=== PATIENT | male | born 1935 | race Caucasian/White ===

== ENCOUNTER → 2016-10-18 | Outpatient (CLI) | payer OTHER ==
[~2016-10-18] MED LIST: ALENDRONATE 70 MG PO; AMLO-110 PO; ASPEC81 PO; ATEN50TA8 PO; BENA1TAB53 PO; CALCTAB5 PO; CHOL100010 PO; CLS1 PO; CRD4 PO; FINA5TAB PO; LORA0.5T12 PO; LOVA20TA4 PO; MULT-190 PO; POTA-335 PO; PRED-301 PO; PRLSR20 PO
--- NOTE | 2016-10-18 15:27 | DIAGNOSTIC IMAGING REPORT ---
BILATERAL LOWER EXTREMITY VENOUS DOPPLER HISTORY: B/L LEG SWELLING,TENDERNESS,R/O DVT COMPARISON STUDY: None. FINDINGS: There is normal compressibility, flow, and augmentation within the bilateral lower extremity deep venous systems. IMPRESSION: No DVT within the right or left lower extremity. Electronically signed by: Erik Solis M.D. 10/18/2016 3:25 PM Dictated Date/Time: 10/18/2016 3:24 PM
== END | disposition home or self-care (01) ==
LOC: C.ULTR 14:43
PROVIDERS: ATTEND Internal Medicine
DX: R60.0 Localized edema (principal); M79.669 Pain in unspecified lower leg; R06.09 Other forms of dyspnea

== ENCOUNTER → 2017-01-11 | Outpatient (CLI) | payer OTHER ==
[~2017-01-11] MED LIST changes: +BENA1TAB19 PO; -BENA1TAB53 PO; +GADAVIST IV PRN
--- NOTE | 2017-01-11 16:09 | DIAGNOSTIC IMAGING REPORT ---
CORRECTED REPORT FOR CLINICAL HISTORY BRAIN COMBO CLINICAL HISTORY: Vision loss and optic nerve swelling COMPARISON STUDY: No previous studies for comparison. TECHNIQUE: Utilizing a 1.5 Ashlyn magnet and dedicated coil, multiplanar, multiecho imaging of the brain was performed pre and postcontrast administration. IV administration of 8.0 mL of Gadavist contrast was uneventful. FINDINGS: Diffusion images are negative for an acute ischemic event. Generalized chronic small vessel change throughout both cerebral hemispheres. Slight compensatory prominence of the ventricular system. No significant postcontrast enhancement. IMPRESSION: Normal study. The above report was generated using voice recognition software. It may contain grammatical, syntax or spelling errors. Electronically signed by: Benja Fortune M.D. 01/11/2017 4:08 PM Dictated Date/Time: 01/11/2017 4:05 PM [facility]
--- NOTE | 2017-01-11 16:12 | DIAGNOSTIC IMAGING REPORT ---
CORRECTED REPORT FOR CLINICAL HISTORY ORBITAL MRI WITHOUT AND WITH CONTRAST CLINICAL HISTORY: Hodgkin's lymphoma, prostate carcinoma. Right eye swelling. Optic nerve swelling. COMPARISON STUDY: No previous studies for comparison. FINDINGS: Imaging was performed in the sagittal axial and coronal planes. Imaging before and after the administration of 10 cc of intravenous Gadavist was performed. No ocular masses are visualized. No retroconal masses are visualized. The extraocular muscles appear symmetric. The optic nerves appear symmetric. There is no evidence of pathologic postcontrast enhancement. The optic chiasm appears normal. The infundibulum is within the midline. There are foci of increased T2 signal within the white matter likely a small vessel basis. There is mild ventricular dilatation, likely secondary to volume loss. IMPRESSION: No orbital abnormalities identified. No evidence of metastatic disease. No optic nerve abnormalities identified. Electronically signed by: Tra Krishnan M.D. 01/11/2017 4:11 PM Dictated Date/Time: 01/11/2017 4:06 PM [facility]
== END | disposition home or self-care (01) ==
LOC: C.MRI 14:17
PROVIDERS: ATTEND Ophthalmology
DX: H47.10 Unspecified papilledema (principal)

== ENCOUNTER 2017-09-10 13:45 | Emergency (ER) | payer OTHER ==
[~2017-09-10] VITALS: Ht 175.3 cm; Wt 108.7 kg
[~2017-09-10 13:45] MED LIST changes: -BENA1TAB19 PO; +BENA1TAB53 PO; -GADAVIST IV PRN
[2017-09-10 13:48] VITALS: TEMP 36.8; Ht 175.3 cm; Wt 108.7 kg
[2017-09-10] MEDS ORDERED: SODIUM CHLORIDE 0.9% 1000ML 1,000 ML IV STA (14:01)
--- NOTE | 2017-09-10 14:16 | EMERGENCY ROOM VISIT NOTE ---
History Report prepared by Ike: Luigi Brennan Under the Supervision of: Dr. Cole Barajas M.D. First contact with patient: 13:56 Chief Complaint: OTHER COMPLAINT Stated Complaint: CHOKED ON FOOD,STILL FEELS LODGED History of Present Illness The patient is a 82 year old male who presents to the Emergency Room due to a recent choking episode. Patient states that he "can't swallow" and has a sensation in his throat after eating a salad and a piece of roast beef. Patient states that it was not a big piece of roast piece. He adds that there was nothing sharp in the salad. Patient states that he felt like the food "got stuck ". He states that he could not breath because his "throat was closed up". Patient states that he has a history of similar symptoms but typically it is relieved with drinking fluids. He states that he drank iced tea but it did not relieve the symptoms. He adds that the iced tea went down okay. Patient states that he is feeling better right now. Pertinent past medical history includes a diagnosis of Hodgkin's Lymphoma 6 years ago. Patient states that his oncologist was Dr. Soto at [facility]. He states that Dr. Soto retired and now sees "Laina". He adds that he has a check-up appointment with "Laina" next month. He adds that he has a history of endoscopies. Patient adds that he currently takes a water pill at night to help him urinate. He denies currently taking blood thinners. Patient denies fevers, chills, cough, congestion, and chest pain. Source of History: patient Onset: Recent Position: throat Modifying Factors (Relieving): other (None) Associated Symptoms: No fevers, No chills, No cough, No chest pain Note: Patient denies congestion. Review of Systems See HPI for pertinent positives and negatives. A total of ten systems were reviewed and were otherwise negative. Past Medical & Surgical Medical Problems: (1) Asthma (2) Benign hypertension (3) Bronchitis (4) Deep venous thrombosis (5) Extraction of cataract (6) Gastroesophageal reflux disease (7) Hodgkin's lymphoma (8) Replacement of total knee joint (9) Spinal stenosis of lumbar region (10) Thoracotomy Family History Omitted secondary to age. Social History Smoking Status: Never Smoker Alcohol Use: none Marital Status: Housing Status: lives with significant other Occupation Status: retired Current/Historical Medications Scheduled Amlodipine (Norvasc), 5 MG PO DAILY Aspirin Enteric Coated (Ecotrin Or Generic *), 81 MG PO DAILY Atenolol (Tenormin), 50 MG PO DAILY Benazepril (Lotensin), 40 MG PO DAILY Calcium (Caltrate), 600 MG PO DAILY Cholecalciferol (Vitamin D), 1,000 INTER.UNIT PO DAILY Colestipol Hcl (Colestid *), 1 GM PO DAILY Doxazosin Mesylate (Cardura *), 4 MG PO HS Finasteride (Proscar), 5 MG PO DAILY Lovastatin (Mevacor), 20 MG PO HS Ocuvite Preservision (Ocuvite Preservision), 2 TAB PO DAILY Omeprazole (Prilosec), 20 MG PO DAILY Potassium Chloride (Micro-K Ext Rel), 20 MEQ PO DAILY Prednisone (Prednisone), 10 MG PO DAILY [alendronate 70 mg], 70 MG PO DAILY Scheduled PRN Lorazepam (Lorazepam), 0.5-1 MG PO Q4H PRN Allergies Coded Allergies: Penicillins (Verified Allergy, Intermediate, RASH, ITCHY, 09/10/17) Opioid Analgesics (Verified Adverse Reaction, Intermediate, hallucinations , can take codeine, 09/10/17) Oxycodone (Verified Adverse Reaction, Intermediate, hallucinations, ) Physical Exam Vital Signs Date Time Temp Pulse Resp B/P (MAP) Pulse Ox O2 Delivery O2 Flow Rate FiO2 09/10/17 16:53 63 18 140/76 92 09/10/17 14:36 66 09/10/17 13:48 36.8 67 18 174/81 92 Room Air Physical Exam GENERAL: Awake, alert, uncomfortable-appearing, in no distress HENT: Normocephalic, atraumatic. Oropharynx unremarkable. Dry mucous membranes. EYES: Normal conjunctiva. Sclera non-icteric. NECK: Supple. No nuchal rigidity. FROM. No JVD. RESPIRATORY: Clear to auscultation. CARDIAC: Regular rate, normal rhythm. Extremities warm and well perfused. Pulses equal. ABDOMEN: Soft, non-distended. No tenderness to palpation. No rebound or guarding. No masses. RECTAL: Deferred. MUSCULOSKELETAL: Chest examination reveals no tenderness. The back is symmetrical on inspection without obvious abnormality. There is no CVA tenderness to palpation. No joint edema. LOWER EXTREMITIES: Calves are equal size bilaterally and non-tender. No edema. No discoloration. NEURO: Normal sensorium. No sensory or motor deficits noted. SKIN: No rash or jaundice noted. Medical Decision & Procedures ER Provider Diagnostic Interpretation: Radiology results as stated below per my review and radiologist interpretation: SOFT TISSUE NECK WITH HISTORY: 82 years-old Male dysphagia, r/o retained food bolus acute dysphasia COMPARISON: MRI of the orbits 01/11/2017 TECHNIQUE: Multiple axial CT images of the soft tissues of the neck were obtained following the intravenous administration of 115 mL Optiray 320 IV contrast. A dose lowering technique was used consistent with the principals of ALEE. FINDINGS: The adenoid, lingual and palatine tonsils appear unremarkable. The airway appears patent. No mucosal soft tissue mass identified within the pharynx or glottis. The epiglottis appears unremarkable. There is mild asymmetric thickening of the left aryepiglottic fold, image 199 series 3 without focal lesion identified resulting in asymmetric decreased size of the left piriform sinus compared to the right. The true and false vocal cords appear unremarkable. Vallecula are within normal limits. The periglottic fat appears preserved. No parapharyngeal abscess or drainable fluid collections. No prevertebral soft tissue swelling. The bilateral parotid and submandibular glands are within normal limits. Mildly heterogeneous thyroid without dominant nodule identified. No pathologic adenopathy of the neck is seen. Atherosclerosis of the thoracic aorta and proximal great vessels. There is medial course of the left common carotid artery with atherosclerosis of the bilateral carotid bulbs. Lung apices appear generally clear. Prior median sternotomy. Multilevel discogenic degenerative changes, uncovertebral spurring and facet arthrosis of the cervical spine with severe multilevel intervertebral disc space narrowing and reversal the normal cervical lordosis. Mastoid air cells and middle ear cavities are clear. Mild mucosal thickening of the posterior ethmoid air cells.No acute intracranial abnormality. There appears be mild cerebral atrophy. IMPRESSION: 1. Asymmetric soft tissue thickening without discrete mass identified involving the left aryepiglottic fold, likely secondary to medial retropharyngeal course of the left common carotid artery. This finding could be further evaluated with direct visualization to exclude underlying mucosal mass lesion. 2. Patent airway without drainable fluid collection or pathologic adenopathy. 3. Mild paranasal sinus disease. 4. Severe multilevel intervertebral disc space narrowing of the cervical spine. The above report was generated using voice recognition software. It may contain grammatical, syntax or spelling errors. Electronically signed by: Giovanni Cotton M.D. 09/10/2017 3:08 PM Laboratory Results 09/10/17 14:18 Red Blood Count 5.13, Mean Corpuscular Volume 89.5, Mean Corpuscular Hemoglobin 30.0, Mean Corpuscular Hemoglobin Concent 33.6, Mean Platelet Volume 11.0, Neutrophils (%) (Auto) 81.1, Lymphocytes (%) (Auto) 9.3, Monocytes (%) (Auto) 7.8, Eosinophils (%) (Auto) 1.3, Basophils (%) (Auto) 0.1, Neutrophils # (Auto) 6.69, Lymphocytes # (Auto) 0.77, Monocytes # (Auto) 0.64, Eosinophils # (Auto) 0.11, Basophils # (Auto) 0.01 09/10/17 14:18 Test 09/10/17 14:18 09/10/17 14:24 White Blood Count 8.25 K/uL (4.8-10.8) Red Blood Count 5.13 M/uL (4.7-6.1) Hemoglobin 15.4 g/dL (14.0-18.0) Hematocrit 45.9 % (42-52) Mean Corpuscular Volume 89.5 fL (80-100) Mean Corpuscular Hemoglobin 30.0 pg (25-34) Mean Corpuscular Hemoglobin Concent 33.6 g/dl (32-36) Platelet Count 137 K/uL (130-400) Mean Platelet Volume 11.0 fL (7.4-10.4) Neutrophils (%) (Auto) 81.1 % Lymphocytes (%) (Auto) 9.3 % Monocytes (%) (Auto) 7.8 % Eosinophils (%) (Auto) 1.3 % Basophils (%) (Auto) 0.1 % Neutrophils # (Auto) 6.69 K/uL (1.4-6.5) Lymphocytes # (Auto) 0.77 K/uL (1.2-3.4) Monocytes # (Auto) 0.64 K/uL (0.11-0.59) Eosinophils # (Auto) 0.11 K/uL (0-0.5) Basophils # (Auto) 0.01 K/uL (0-0.2) RDW Standard Deviation 44.1 fL (36.4-46.3) RDW Coefficient of Variation 13.5 % (11.5-14.5) Immature Granulocyte % (Auto) 0.4 % Immature Granulocyte # (Auto) 0.03 K/uL (0.00-0.02) Est Creatinine Clear Calc Drug Dose 67.1 ml/min Estimated GFR () 76.8 Estimated GFR (Non- 66.3 BUN/Creatinine Ratio 15.3 (10-20) Calcium Level 8.7 mg/dl (8.5-10.1) Bedside Hemoglobin 15.3 g/dl (14.0-18.0) Bedside Hematocrit 45 % (42-52) Bedside Sodium 142 mEq/L (135-144) Bedside Potassium 3.3 mEq/L (3.3-5.0) Bedside Chloride 101 mEq/L (101-112) Bedside Total CO2 29 mEq/l (24-31) Anion Gap 16.0 mmol/L (16-25) Bedside Blood Urea Nitrogen 16 mg/dl (7-18) Bedside Creatinine 1.0 mg/dl (0.6-1.3) Bedside Glucose (other) 100 mg/dl (70-99) Bedside Ionized Calcium (Temo) 1.14 mmol/l (1.12-1.32) Laboratory results reviewed by me Medications Administered Medications (Trade) Dose Ordered Sig/Comfort Route Start Time Stop Time Status Last Admin Dose Admin Sodium Chloride 1,000 ml @ 999 mls/hr Q1H1M STAT IV 09/10/17 14:01 09/10/17 15:01 DC 09/10/17 14:29 999 MLS/HR ED Course 1354: The patient was evaluated in room A9. A complete history and physical exam was performed. 1555: I reassessed the patient who is resting comfortably. 1610: I reevaluated the patient. Discussed results and discharge instructions. He verbalized understanding and agreement. The patient is ready for discharge. Medical Decision I reviewed the patient's past medical history, medications, and the nursing notes as described above. The patient's presentation and history were concerning for a lodged food bolus, achalasia, reflux, esophagitis, and aspiration. The patient is an 82 y/o gentleman with a pmhx of remote lymphoma who presents to the emergency department with episode of dysphagia feeling as though food was stuck in his throat per HPI. On arrival the patient is in NAD, AFVSS. On exam the patient's oropharynx is without edema or injection. No stridor. No trismus. CT soft tissue neck demonstrates "asymmetric soft tissue thickening without discrete mass identified involving the left aryepiglottic fold" that is likely due to underlying vasculature. No abnormal LN to suggest malignancy. No lodged food bolus. Labs otherwise unremarkable. Patient reassess and feeling improved with resolution of symptoms. Thus, possibly transient lodged food bolus as well as reflux. Patient will f/u with his GI specialist. Findings and plan for follow-up reviewed with patient. Patient agreeable and d/c'd per discharge instructions. Medication Reconcilliation Current Medication List: was personally reviewed by me Blood Pressure Screening Patient's blood pressure: Elevated blood pressure Blood pressure disposition: Elevated BP felt to be situational Consults Time Called: 1535 Consulting Physician: Dr. Cotton - Radiologist Returned Call: [phone] I discussed the patient's Soft Tissue Neck CT scan with Dr. Cotton. He states that the findings are not consistent with food bolus. It is more likely vascularity as he suggest in the report. There is also no pathologic lymph nodes to suggest malignancy Impression Primary Impression: Dysphagia Additional Impression: GERD (gastroesophageal reflux disease) Scribe Attestation The scribe's documentation has been prepared under my direction and personally reviewed by me in its entirety. I confirm that the note above accurately reflects all work, treatment, procedures, and medical decision making performed by me. Departure Information Dispostion Home / Self-Care Referrals Mirza Mcgee III, M.D. (PCP) Arnoldo Oseguera M.D. Forms HOME CARE DOCUMENTATION FORM, IMPORTANT VISIT INFORMATION, WORK / SCHOOL INSTRUCTIONS Patient Instructions Dysphagia, ED GERD, My [facility] Additional Instructions Please follow up with your primary care physician as well as your pipe changer, Dr. Oseguera, for re-evaluation and to possible arrange for an endoscopy. Your symptoms may have been related to a transiently lodged food particle that then resolved and possibly worsened by recent reflux flare. Otherwise, your exam, lab results, and CT scan did not show signs of an emergent condition at this time. Continue your omeprazole and Tums as needed. Additionally add Pepcid as needed if you feel your symptoms persist. Drink plenty of fluids to ensure hydration. Return to the emergency department for worsening symptoms as described in the accompanying instructions. Problem Qualifiers
[2017-09-10] MEDS ORDERED: OPTIRAY 320 IV PRN (14:30)
[2017-09-10 14:38] LABS: ISTAT IONIZED CALCIUM 1.14 mmol/l (1.12-1.32); ISTAT POTASSIUM 3.3 mEq/L (3.3-5.0)
[2017-09-10 14:40] LABS: BASO % 0.1 %; BASO ABS # 0.01 K/uL (0-0.2); EOS % 1.3 %; EOS ABS # 0.11 K/uL (0-0.5); HEMATOCRIT 45.9 % (42-52); HEMOGLOBIN 15.4 g/dL (14.0-18.0); IG# 0.03 K/uL (0.00-0.02); LYMPH % 9.3 %; LYMPH ABS # 0.77 K/uL (1.2-3.4); MEAN CELL VOLUME 89.5 fL (80-100); MEAN CORPUSCULAR HGB CONC 33.6 g/dl (32-36); MONO % 7.8 %; MONO ABS # 0.64 K/uL (0.11-0.59); NEUT % 81.1 %; NEUT ABS # 6.69 K/uL (1.4-6.5); PLATELET COUNT 137 K/uL (130-400); RED CELL DISTRIBUTION WIDTH CV 13.5 % (11.5-14.5); RED CELL DISTRIBUTION WIDTH SD 44.1 fL (36.4-46.3); WHITE BLOOD COUNT 8.25 K/uL (4.8-10.8)
[2017-09-10 14:57] LABS: CALCIUM 8.7 mg/dl (8.5-10.1); CREATININE 1.05 mg/dl (0.60-1.40); POTASSIUM 3.3 mmol/L (3.5-5.1)
--- NOTE | 2017-09-10 15:10 | DIAGNOSTIC IMAGING REPORT ---
SOFT TISSUE NECK WITH HISTORY: 82 years-old Male dysphagia, r/o retained food bolus acute dysphasia COMPARISON: MRI of the orbits 01/11/2017 TECHNIQUE: Multiple axial CT images of the soft tissues of the neck were obtained following the intravenous administration of 115 mL Optiray 320 IV contrast. A dose lowering technique was used consistent with the principals of ALEE. FINDINGS: The adenoid, lingual and palatine tonsils appear unremarkable. The airway appears patent. No mucosal soft tissue mass identified within the pharynx or glottis. The epiglottis appears unremarkable. There is mild asymmetric thickening of the left aryepiglottic fold, image 199 series 3 without focal lesion identified resulting in asymmetric decreased size of the left piriform sinus compared to the right. The true and false vocal cords appear unremarkable. Vallecula are within normal limits. The periglottic fat appears preserved. No parapharyngeal abscess or drainable fluid collections. No prevertebral soft tissue swelling. The bilateral parotid and submandibular glands are within normal limits. Mildly heterogeneous thyroid without dominant nodule identified. No pathologic adenopathy of the neck is seen. Atherosclerosis of the thoracic aorta and proximal great vessels. There is medial course of the left common carotid artery with atherosclerosis of the bilateral carotid bulbs. Lung apices appear generally clear. Prior median sternotomy. Multilevel discogenic degenerative changes, uncovertebral spurring and facet arthrosis of the cervical spine with severe multilevel intervertebral disc space narrowing and reversal the normal cervical lordosis. Mastoid air cells and middle ear cavities are clear. Mild mucosal thickening of the posterior ethmoid air cells.No acute intracranial abnormality. There appears be mild cerebral atrophy. IMPRESSION: 1. Asymmetric soft tissue thickening without discrete mass identified involving the left aryepiglottic fold, likely secondary to medial retropharyngeal course of the left common carotid artery. This finding could be further evaluated with direct visualization to exclude underlying mucosal mass lesion. 2. Patent airway without drainable fluid collection or pathologic adenopathy. 3. Mild paranasal sinus disease. 4. Severe multilevel intervertebral disc space narrowing of the cervical spine. The above report was generated using voice recognition software. It may contain grammatical, syntax or spelling errors. Electronically signed by: Giovanni Cotton M.D. 09/10/2017 3:08 PM Dictated Date/Time: 09/10/2017 2:55 PM
[2017-09-10 16:53] VITALS: BP 140/76; PULSE 63; O2SAT 92
== END 2017-09-10 16:54 | disposition home or self-care (01) ==
LOC: C.EDB 13:46 → C.EDA 16:54
DX: R13.10 Dysphagia, unspecified (principal); K21.9 Gastro-esophageal reflux disease without esophagitis; R93.3 Abnormal findings on diagnostic imaging of other parts of digestive tract; C81.90 Hodgkin lymphoma, unspecified, unspecified site; J45.909 Unspecified asthma, uncomplicated; I10 Essential (primary) hypertension; Z79.82 Long term (current) use of aspirin; Z79.52 Long term (current) use of systemic steroids; Z88.0 Allergy status to penicillin; Z88.6 Allergy status to analgesic agent

== ENCOUNTER 2021-02-02 21:32 | Observation (INO) ==
[2021-02-02] MEDS ORDERED: dexAMETHasone**PF** 10 MG/ML VIAL IV ONE (23:37)
[2021-02-02] MEDS ORDERED: SODIUM CHLORIDE 0.9% 1000ML 500 ML IV ONE (23:37)
[2021-02-02] MEDS ORDERED: ONDANSETRON INJ 2 MG/ML 2 ML VIAL IV STA (23:37)
[2021-02-02] MEDS ORDERED: fentaNYL citrate 100 MCG/2 ML VIAL IV STA (23:37)
--- NOTE | 2021-02-02 23:43 | Emergency Department Note ---
Impression & Plan Acute left-sided low back pain with left-sided sciatica, Intractable back pain ED Provider Note Name: SEFERINO MORALES Age: 85 Sex: M Arrives Via: Ambulance Informant: Patient, , EMS ED Provider: Adolfo Shabazz MD Chief Complaint: back pain Impression: See Above Medical Decision Makin yr old male with history of COPD, HTN, GERD amongst others arrives for 10 days of left lower back pain now radiating down left buttock/thigh with worsening pain the last few days to point unable to ambulate at home. notes unable to even sit him up thus EMS brought him in. Did do quite well with IV toradol for pain while still, but still pain with even sitting which requiring significant assistance. IV fentanyl seems to work, though with movement significant pain. Review MRI done just a few days ago shows left L4/L5 disc bulges with primarily noted L5 nerve root impingement consistent with his symptoms. No surgical findings at that time and no weakness on my exam and denies loss bowel/bladder control. Will need to come in for pain control and management while steroids set in. Triage/Nursing Notes reviewed by Me Previous Chart Reviewed and history from as well Differentials:Musculoskeletal, disc herniation, fracture, metastatic disease, cord compression, discitis, sciatica, cauda equina, infection, aortic disease, renal colic, gastrointestinal, as well as other pathologies. Vital Signs: reviewed and remarkable for no significant abnormalities Interventions: saline lock, fentanyl 50mcg iv, zofran 4mg iv, decadron 10mg iv Labs:Reviewed and remarkable for no significant abnormalities Imaging:MRI Lumbar 8.6.21 "Lumbar spine: Marrow signal intensity is heterogeneous. Vertebral body height is maintained throughout the lumbar spine. There is minimal retrolisthesis at L1-L2 and L2-L3. Alignment is otherwise preserved. Anterior and lateral marginal osteophytes are seen throughout. The transverse and spinous processes appear intact. There is no evidence of spondylolysis. There are numerous hemangiomas throughout the lumbosacral spine. The largest are seen in the bodies of L2 and L4. No destructive bony lesion is clearly identified. Chronic degenerative endplate changes are seen at all lumbar levels. Minimal endplate edema is seen at L2-L3 and L3-L4. Vertebral discs: Degenerative disc desiccation is seen throughout the lumbar spine. There is moderate to severe loss of height at all lumbar levels, greatest at L2-L3 and L3-L4. Spinal cord: The visualized spinal cord is normal in morphology and signal intensity. The conus medullaris terminates at the L1-L2 interspace. The nerve roots of the cauda equina are normal in morphology. T12-L1: This is only seen on the sagittal series. There is broad-based posterior disc bulge. No acquired compromise of the central canal is identified. There is mild bilateral neural foraminal narrowing. L1-L2: There is mild posterior disc bulge. This abuts the transiting left-sided nerve roots. No acquired compromise of the central canal is seen. There is mild left-sided subarticular stenosis. Mild bilateral neural foraminal narrowing is seen bilaterally. L2-L3: There is a posterior disc osteophyte complex which abuts the transiting nerve roots. Lateral disc bulge is seen bilaterally. This contributes to bilateral subarticular stenosis and may impinge on the exiting bilateral L2 nerve roots. There is moderate right and mild left neural foraminal stenosis at this level. L3-L4: There is a small posterior disc osteophyte complex which abuts the transiting nerve roots. No acquired compromise of the central canal is identified. There is bilateral subarticular stenosis, with possible impingement on the exiting bilateral L3 nerve roots. In conjunction with facet arthropathy, there is moderate right greater than left neural foraminal stenosis. L4-L5: There is left lateral disc bulge. This contributes to subarticular stenosis and impinges on the exiting left L4 nerve root. The central canal is clear. In conjunction with facet arthropathy, there is moderate left and mild right neural foraminal stenosis. L5-S1: Lateral disc bulge is seen bilaterally, left greater than right. This contributes to severe left-sided subarticular stenosis and likely impinges on the exiting left L5 nerve root. This may also abut the exiting right L5 nerve root. The central canal is clear. In conjunction with facet arthropathy, there is moderate left and mild right neural foraminal stenosis. Sacrum: The visualized sacrum is normal in morphology and signal intensity. Soft tissues: There is fatty atrophy of the paraspinous musculature. The p araspinous soft tissues otherwise normal in appearance. The retroperitoneal structures are grossly unremarkable but incompletely assessed. IMPRESSION: 1. Multilevel lumbosacral spondylosis as above. See discussion for detailed level by level analysis. 2. No significant acquired compromise of the central canal is identified. 3. No destructive bony process is identified. 4. Degenerative disc disease as above with associated endplate change." Consults:Dr Jovanna Barry hospitalist Plan: Disposition:Hospitalization. Condition: Good History of Present Illness:85 yr old male arrives for evaluation of back pain. Patient notes fall on buttock while trying to sit on a chair at his doctor's office 10 days ago. Since then worsening left lower back pain. Radiates down left buttock in to lateral left posterior thigh. Worse with movement. Better with rest. Using Tylenol with minimal improvement. Mild associated nausea when pain severe. Stabbing in nature. No other trauma, injury falls. Notes history of back issues though no pain like this previously. No fevers, chills, sob, chest pain, vomiting, syncope, abdominal pain, urinary/bowel changes, headache, runny nose, sore throat nor other symptoms. Denies any recent rashes, blisters, bruising. Tonight pain too severe and unable to get up. unable to care for him thus called 911. Toradol 15mg IV en route with improvement somewhat in pain. ROS: See above HPI for pertinent positives & negatives. A total of 10 systems reviewed and were otherwise negative. Past Medical History:See Below Past Surgical History:See Below Family History:See Below Social History:See Below Home Medications:See Below Allergies:PNC, Oxycodone Vitals:Blood Pressure: 133/73, Pulse 71, RR 17, T 37.2C, O2 99% on RA Physical Exam: GENERAL: Patient is very uncomfortable appearing and in moderate distress. EYES: No scleral icterus, unremarkable pupils. ENT: Mucous membranes moist, no nasal congestion. NECK: No masses appreciated, nomeningismus, trachea is midline. RESPIRATORY: No dyspnea. Clear to auscultation and equal bilaterally. Mild expiratory wheezing, no rhonchi. CARDIOVASCULAR: Regular rate and rhythm.No murmurs, rubs, gallops appreciated. GASTROINTESTINAL: Abdomen soft, non-tender, no peritonitis.Bowel sounds positive.No masses appreciated. BACK: No midline tenderness, no CVA tenderness. Vague TTP over left upper buttock, otherwise unremarkable. EXTREMITIES: Normal motion all extremities, no cyanosis, no edema. NEUROLOGIC: Alert and oriented, no acute motor or sensory deficits, no focal weakness, cranial nerves grossly intact. SKIN: No rash, no jaundice, no diaphoresis. PSYCH: Appropriate GCS: 15 ED Course: Times/Reassessments: much improved though still requiring significant help with sitting up. Adolfo Shabazz MD Past Med/Surg History Social History Smoking Status: Never smoker Hx Alcohol Use: No Hx Substance Use: No Preferred Language: Czech Communication Ability: Effective Beliefs That Will Affect Care: None Current Living Situation: Spouse Other Information That Helps Us Care for You: No Feels Safe at Home: Yes Assistive Devices: Denture - Upper, Denture - Lower, Glasses, Hearing Aid - Bilateral and Walker Allergies Allergies Allergy/AdvReac Type Severity Reaction Status Date / Time Penicillins Allergy Intermediate RASH, ITCHY Verified 02/02/21 22:32 oxycodone AdvReac Intermediate hallucinati Verified 02/02/21 22:32 ons Opioid Analgesics AdvReac Intermediate hallucinations, Uncoded 02/02/21 22:32 can take codeine Home Meds Home Medications Medication Instructions Recorded Confirmed amlodipine 5 mg tablet 5 mg PO DAILY 02/02/21 02/02/21 aspirin 81 mg tablet,delayed 81 mg PO DAILY 02/02/21 02/02/21 release (Aspirin Low Dose) atenolol 50 mg tablet 50 mg PO DAILY 02/02/21 02/02/21 atorvastatin 20 mg tablet 20 mg PO DAILY 02/02/21 02/02/21 benazepril 40 mg tablet 40 mg PO DAILY 02/02/21 02/02/21 calcium carbonate 200 mg calcium 200 mg PO DAILY 02/02/21 02/02/21 (500 mg) chewable tablet (Calcium Antacid) diclofenac sodium 1 % topical gel 4 g TOPICAL BID 02/02/21 02/02/21 doxazosin 8 mg tablet 8 mg PO HS 02/02/21 02/02/21 finasteride 5 mg tablet 5 mg PO DAILY 02/02/21 02/02/21 fluticasone furoate 100 1 ea INHALATION DAILY 02/02/21 02/02/21 mcg-vilanterol 25 mcg/dose inhalation powder (Breo Ellipta) fluticasone propionate 50 2 spray INTRANASAL DAILY 02/02/21 02/02/21 mcg/actuation nasal spray,suspension furosemide 20 mg tablet 40 mg PO DAILY 02/02/21 02/02/21 gabapentin 400 mg capsule 400 mg PO QID 02/02/21 02/02/21 ipratropium 0.5 mg-albuterol 3 mg 3 ml INHALATION BID 02/02/21 02/02/21 (2.5 mg base)/3 mL nebulization soln leuprolide (6 month) 45 mg (6 45 mg SUBCUT .EVERY 6 MONTHS 02/02/21 02/02/21 month) subcutaneous syringe lorazepam 0.5 mg tablet 0.5 mg PO Q8 PRN 02/02/21 02/02/21 magnesium 250 mg tablet 250 mg PO DAILY 02/02/21 02/02/21 omeprazole 20 mg capsule,delayed 20 mg PO BID 02/02/21 02/02/21 release ondansetron 4 mg disintegrating 4 mg PO Q8H PRN 02/02/21 02/02/21 tablet potassium chloride 10 mEq 20 meq PO TID 02/02/21 02/02/21 tablet,extended release prednisone 5 mg tablet 5 - 10 mg PO UD 02/02/21 02/02/21 spironolactone 50 mg tablet 50 mg PO DAILY 02/02/21 02/02/21 vit C 250 mg-vit E 90 mg-zinc 40 1 tab PO BID 02/02/21 02/02/21 mg-copper 1 [id number] capsule (PreserVision AREDS-2) zinc gluconate 50 mg tablet 50 mg PO DAILY 02/02/21 02/02/21 Results & Data (ED) Vital Signs Vital Signs - 24 hr 02/02/21 21:37 02/02/21 22:00 02/02/21 23:48 Temperature 37.2 C Temperature Source Oral Pulse Rate 66 Pulse Rate [Left] 66 71 64 Pulse Rate from SpO2 Sensor Pulse Rhythm Regular Pulse Rhythm [Left] Regular Regular Pulse Strength Normal Pulse Strength [Left] Normal Normal Respiratory Rate 18 17 18 Respiratory Effort / Characteristics Non-Labored Non-Labored Respiratory Depth Normal Normal Respiratory Pattern Regular Regular Blood Pressure 154/78 H Blood Pressure [Right Arm] 154/78 H 133/73 140/77 Blood Pressure Mean 103 Blood Pressure Mean [Right Arm] 103 93 98 Blood Pressure Position Lying Blood Pressure Position [Right Arm] Lying Lying Pulse Oximetry 96 99 95 Oxygen Delivery Method Room Air Room Air Oxygen Flow Rate Sepsis Recent Fever Within 48 Hours No Sepsis New/Unexplained Change in Mental Status N/A Sepsis Action Taken by Nursing No Action Required 02/03/21 00:15 02/03/21 00:20 02/03/21 00:45 Temperature Temperature Source Pulse Rate Pulse Rate [Left] 65 Pulse Rate from SpO2 Sensor Pulse Rhythm Pulse Rhythm [Left] Pulse Strength Pulse Strength [Left] Respiratory Rate 18 Respiratory Effort / Characteristics Respiratory Depth Respiratory Pattern Blood Pressure Blood Pressure [Right Arm] 148/75 H Blood Pressure Mean Blood Pressure Mean [Right Arm] 99 Blood Pressure Position Blood Pressure Position [Right Arm] Pulse Oximetry 88 L 97 94 Oxygen Delivery Method Room Air Nasal Cannula Nasal Cannula Oxygen Flow Rate 2 Sepsis Recent Fever Within 48 Hours Sepsis New/Unexplained Change in Mental Status Sepsis Action Taken by Nursing 02/03/21 01:30 02/03/21 01:36 02/03/21 02:05 Temperature Temperature Source Pulse Rate Pulse Rate [Left] 63 66 69 Pulse Rate from SpO2 Sensor Pulse Rhythm Pulse Rhythm [Left] Pulse Strength Pulse Strength [Left] Respiratory Rate 18 21 18 Respiratory Effort / Characteristics Respiratory Depth Respiratory Pattern Blood Pressure Blood Pressure [Right Arm] 150/83 H 150/83 H 155/86 H Blood Pressure Mean Blood Pressure Mean [Right Arm] 105 105 109 Blood Pressure Position Blood Pressure Position [Right Arm] Lying Pulse Oximetry 97 99 97 Oxygen Delivery Method Nasal Cannula Nasal Cannula Nasal Cannula Oxygen Flow Rate 2 2 2 Sepsis Recent Fever Within 48 Hours Sepsis New/Unexplained Change in Mental Status Sepsis Action Taken by Nursing 02/03/21 02:30 02/03/21 03:00 02/03/21 03:30 Temperature Temperature Source Pulse Rate 62 70 Pulse Rate [Left] 60 Pulse Rate from SpO2 Sensor 62 70 Pulse Rhythm Pulse Rhythm [Left] Pulse Strength Pulse Strength [Left] Respiratory Rate 18 14 14 Respiratory Effort / Characteristics Respiratory Depth Respiratory Pattern Blood Pressure 158/79 H 165/85 H Blood Pressure [Right Arm] 167/80 H Blood Pressure Mean 105 111 Blood Pressure Mean [Right Arm] 109 Blood Pressure Position Blood Pressure Position [Right Arm] Pulse Oximetry 98 98 99 Oxygen Delivery Method Room Air Oxygen Flow Rate Sepsis Recent Fever Within 48 Hours Sepsis New/Unexplained Change in Mental Status Sepsis Action Taken by Nursing 02/03/21 04:00 Temperature Temperature Source Pulse Rate 62 Pulse Rate [Left] Pulse Rate from SpO2 Sensor 63 Pulse Rhythm Pulse Rhythm [Left] Pulse Strength Pulse Strength [Left] Respiratory Rate 18 Respiratory Effort / Characteristics Respiratory Depth Respiratory Pattern Blood Pressure 150/81 H Blood Pressure [Right Arm] Blood Pressure Mean 104 Blood Pressure Mean [Right Arm] Blood Pressure Position Blood Pressure Position [Right Arm] Pulse Oximetry 97 Oxygen Delivery Method Oxygen Flow Rate Sepsis Recent Fever Within 48 Hours Sepsis New/Unexplained Change in Mental Status Sepsis Action Taken by Nursing Laboratory Data Result diagrams: 02/02/21 23:44 02/02/21 23:44 Lab Results 02/02/21 02/02/21 02/02/21 Range/Units 23:44 23:44 23:45 WBC 8.44 (4.8-10.8) K/uL RBC 4.04 L (4.7-6.1) M/uL Hgb 12.5 L (14.0-18.0) g/dL Hct 37.5 L (42-52) % MCV 92.8 (80-100) fL MCH 30.9 (25-34) pg MCHC 33.3 (32-36) g/dL RDW Std Deviation 46.4 H (36.4-46.3) fL RDW Coeff of Scott 13.6 (11.5-14.5) % Plt Count 138 (130-400) K/uL MPV 11.1 H (7.4-10.4) fL Immature Gran % (Auto) 0.5 % Neut % (Auto) 79.8 % Lymph % (Auto) 10.2 % Frederick % (Auto) 8.6 % Eos % (Auto) 0.8 % Baso % (Auto) 0.1 % Neut # (Auto) 6.73 H (1.4-6.5) K/uL Lymph # (Auto) 0.86 L (1.2-3.4) K/uL Frederick # (Auto) 0.73 H (0.11-0.59) K/uL Eos # (Auto) 0.07 (0-0.5) K/uL Baso # (Auto) 0.01 (0-0.2) K/uL Immature Gran # (Auto) 0.04 H (0.00-0.02) K/uL Sodium 140 (136-145) mmol/L Potassium 4.7 (3.5-5.1) mmol/L Chloride 107 (98-107) mmol/L Carbon Dioxide 26 (21-32) mmol/L Anion Gap 7.0 (3-11) BUN 42 H (7-18) mg/dl Creatinine 1.60 H (0.6-1.4) mg/dl Est Cr Clr Drug Dosing 40.3 ml/min Est GFR ( Amer) 45.2 ml/min Est GFR (Non-Af Amer) 39.0 ml/min BUN/Creatinine Ratio 26.5 H (10-20) Glucose 175 H (70-99) mg/dl Calcium 8.4 L (8.5-10.1) mg/dl COVID-19 Eval Order Covid19 at [facility] SARS-CoV-2 (PCR) (Negative) 02/02/21 Range/Units 23:45 WBC (4.8-10.8) K/uL RBC (4.7-6.1) M/uL Hgb (14.0-18.0) g/dL Hct (42-52) % MCV (80-100) fL MCH (25-34) pg MCHC (32-36) g/dL RDW Std Deviation (36.4-46.3) fL RDW Coeff of Scott (11.5-14.5) % Plt Count (130-400) K/uL MPV (7.4-10.4) fL Immature Gran % (Auto) % Neut % (Auto) % Lymph % (Auto) % Frederick % (Auto) % Eos % (Auto) % Baso % (Auto) % Neut # (Auto) (1.4-6.5) K/uL Lymph # (Auto) (1.2-3.4) K/uL Frederick # (Auto) (0.11-0.59) K/uL Eos # (Auto) (0-0.5) K/uL Baso # (Auto) (0-0.2) K/uL Immature Gran # (Auto) (0.00-0.02) K/uL Sodium (136-145) mmol/L Potassium (3.5-5.1) mmol/L Chloride (98-107) mmol/L Carbon Dioxide (21-32) mmol/L Anion Gap (3-11) BUN (7-18) mg/dl Creatinine (0.6-1.4) mg/dl Est Cr Clr Drug Dosing ml/min Est GFR ( Amer) ml/min Est GFR (Non-Af Amer) ml/min BUN/Creatinine Ratio (10-20) Glucose (70-99) mg/dl Calcium (8.5-10.1) mg/dl COVID-19 Eval Order SARS-CoV-2 (PCR) NEGATIVE (Negative) Administered Medications Discontinued Medications Dexamethasone Sodium Phosphate (DexamethasonePf 10 Mg/Ml Vial) 10 mg IV NOW ONE Stop: 02/02/21 23:38 Last Admin: 02/02/21 23:45 Dose: 10 mg Documented by: [id number] Fentanyl Citrate (Fentanyl Citrate 100 Mcg/2 Ml Vial) 50 mcg IV NOW STA Stop: 02/02/21 23:38 Last Admin: 02/02/21 23:46 Dose: 50 mcg Documented by: [id number] Sodium Chloride (Nss 1000ml) 500 mls @ 999 mls/hr IV .Q31M ONE Stop: 02/03/21 00:07 Last Infusion: 02/03/21 00:30 Dose: 0 mls/hr Documented by: [id number] Admin: 02/02/21 23:45 Dose: 999 mls/hr Documented by: [id number] Ondansetron HCl (Ondansetron Inj 2 Mg/Ml 2 Ml Vial) 4 mg IV NOW STA Stop: 02/02/21 23:38 Last Admin: 02/02/21 23:45 Dose: 4 mg Documented by: [id number] Discharge Plan Visit Data Chief Complaint: Back Injury/Pain ED Provider: Adolfo Shabazz Discharge Problem: Acute left-sided low back pain with left-sided sciatica, Intractable back pain Forms Stand Alone Forms: [facility] Prescriptions Prescriptions: No Action doxazosin 8 mg tablet 8 mg PO HS RF: 0 finasteride 5 mg tablet 5 mg PO DAILY RF: 0 spironolactone 50 mg tablet 50 mg PO DAILY RF: 0 furosemide 20 mg tablet 40 mg PO DAILY RF: 0 potassium chloride 10 mEq tablet extended release 20 meq PO TID RF: 0 omeprazole 20 mg capsule,delayed release(DR/EC) 20 mg PO BID RF: 0 fluticasone propionate 50 mcg/actuation spray,suspension 2 spray INTRANASAL DAILY RF: 0 ipratropium-albuterol 0.5 mg-3 mg(2.5 mg base)/3 mL solution for nebulization 3 ml INHALATION BID RF: 0 prednisone 5 mg tablet 5 - 10 mg PO UD RF: 0 benazepril 40 mg tablet 40 mg PO DAILY RF: 0 atenolol 50 mg tablet 50 mg PO DAILY RF: 0 atorvastatin 20 mg tablet 20 mg PO DAILY RF: 0 gabapentin 400 mg capsule 400 mg PO QID RF: 0 Breo Ellipta 100-25 mcg/dose blister with device 1 ea INHALATION DAILY RF: 0 amlodipine 5 mg tablet 5 mg PO DAILY RF: 0 aspirin [Aspirin Low Dose] 81 mg Tablet,Delayed Release (Dr/Ec) 81 mg PO DAILY RF: 0 lorazepam 0.5 mg tablet 0.5 mg PO Q8 PRN (Reason: Anxiety) RF: 0 zinc gluconate 50 mg Tablet 50 mg PO DAILY RF: 0 magnesium 250 mg Tablet 250 mg PO DAILY RF: 0 leuprolide (6 month) 45 mg Syringe 45 mg SUBCUT .EVERY 6 MONTHS RF: 0 diclofenac sodium 1 % gel 4 g TOPICAL BID RF: 0 PreserVision AREDS-2 250-90-40-1 mg Capsule 1 tab PO BID RF: 0 calcium carbonate [Calcium Antacid] 200 mg calcium (500 mg) Tablet,Chewable 200 mg PO DAILY RF: 0 ondansetron 4 mg Tablet,Disintegrating 4 mg PO Q8H PRN (Reason: Nausea) RF: 0 Referrals Referrals: Mirza Mcgee MD [Primary Care Provider] -
[2021-02-03 00:06] LABS: Basophils # (auto) 0.01 K/uL (0-0.2); Basophils % (auto) 0.1 %; Eosinophils # (auto) 0.07 K/uL (0-0.5); Eosinophils % (auto) 0.8 %; Hematocrit (blood only) 37.5 % (42-52); Hemoglobin 12.5 g/dL (14.0-18.0); Immature Granulocytes # (auto) 0.04 K/uL (0.00-0.02); Immature Granulocytes % (auto) 0.5 %; Lymphocytes # (auto) 0.86 K/uL (1.2-3.4); Lymphocytes % (auto) 10.2 %; Mean Corpuscular Hemoglobin 30.9 pg (25-34); Mean Corpuscular Hgb Conc 33.3 g/dL (32-36); Mean Corpuscular Volume 92.8 fL (80-100); Mean Platelet Volume 11.1 fL (7.4-10.4); Monocytes # (auto) 0.73 K/uL (0.11-0.59); Monocytes % (auto) 8.6 %; Neutrophils # (auto) 6.73 K/uL (1.4-6.5); Neutrophils % (auto) 79.8 %; Platelet Count 138 K/uL (130-400); RDW Coefficient of Variation 13.6 % (11.5-14.5); RDW Standard Deviation 46.4 fL (36.4-46.3); Red Blood Count 4.04 M/uL (4.7-6.1); White Blood Count 8.44 K/uL (4.8-10.8)
[2021-02-03 00:21] LABS: BUN Creatinine Ratio 26.5 (10-20); Calcium 8.4 mg/dl (8.5-10.1); Creatinine Clr Calc Pharmacy 40.3 ml/min; Est GFR (African American) 45.2 ml/min; Potassium 4.7 mmol/L (3.5-5.1)
[2021-02-03] MEDS ORDERED: traMADol HCL 50 MG TABLET PO PRN (09:21)
--- NOTE | 2021-02-03 10:29 | History and Physical Report ---
DATE OF ADMISSION: 02/03/2021. CHIEF COMPLAINT: Severe back pain. HISTORY OF PRESENT ILLNESS: This is an 85-year-old male with past medical history significant for type 2 diabetes, steroid-induced diabetes, hyperlipidemia, chronic respiratory failure with hypoxia, tracheobronchitis, sleep apnea, chronic diastolic failure, hypertension, chronic kidney disease stage III, irritable bowel syndrome, dysphagia, Reveles's esophagus, history of prostate cancer, BPH, 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, senile osteoporosis, bilateral leg edema, generalized osteoarthritis, history of spinal stenosis, history of Hodgkin disease, history of DVT, presents with back pain. The patient says about 1 week ago, he was at his PCP's office when he was sitting in a chair, he fell on his back. At that time, he was okay, but later developed left buttock pain radiating to the leg. Then saw Dr. Ware, pain management and he was ordered an MRI scan, which was done on 01/29/2021, which showed multilevel lumbosacral spondylosis. The patient says he has ongoing back pain, he is having difficulty walking, that is why he came to the ER. Currently resting comfortably, hemodynamically stable. Denies any chest pain, no shortness of breath, no cough, no fevers, no headache, no blurred vision, no earache, no runny nose, no sore throat. Appetite is okay. No dysphagia, no nausea, no abdominal pain, normal bowel and bladder movements. He had his COVID shot. ALLERGIES: PENICILLIN AND OXYCODONE. PAST MEDICAL HISTORY: As mentioned above. PAST SURGICAL HISTORY: Knee arthroplasty bilaterally, bronchoscopy, colonoscopy, EGDs, injection of lumbosacral spine, injection of eye drug, interstitial radiation application, cataract surgery, resection of chest tumor. MEDICATIONS: The patient is on amlodipine 5 mg p.o. daily, aspirin 81 mg p.o. daily, atenolol 50 mg p.o. daily, atorvastatin 20 mg p.o. daily, benazepril 40 mg p.o. daily, calcium carbonate 200 mg p.o. daily, diclofenac sodium 4 g topical b.i.d., doxazosin 8 mg p.o. at bedtime, finasteride 5 mg p.o. daily, Breo Ellipta 1 inhalation daily, Flonase 2 sprays intranasal daily, Lasix 40 mg p.o. daily, gabapentin 400 mg p.o. q.i.d., DuoNeb b.i.d., Lupron shots every 6 months, lorazepam 0.5 mg p.o. q.8 hours p.r.n., magnesium 250 mg p.o. daily, Zofran 4 mg p.o. q.8 hours p.r.n., potassium chloride 20 mEq p.o. t.i.d., prednisone 5-10 mg as directed, spironolactone 50 mg p.o. daily, PreserVision AREDS 2 one tablet p.o. b.i.d., zinc gluconate 50 mg p.o. daily. FAMILY HISTORY: Significant for mother had Alzheimer disease, arthritis, bladder cancer, diabetes, hypertension, stroke; father had COPD, hypertension, stroke; brother had stroke, heart disease, bladder cancer. SOCIAL HISTORY: . No smoking, no alcohol use, no drug use. REVIEW OF SYSTEMS: As per HPI. Rest of the review of systems is negative. PHYSICAL EXAMINATION: GENERAL: The patient is obese, not in acute distress. VITAL SIGNS: Temperature 37.2, pulse 72, respiratory rate 18, blood pressure 141/85, oxygen 98% on room air. HEENT: Pupils equal, round and reactive to light. Oral mucosa moist. NECK: No JVD, no neck masses. CARDIOVASCULAR: S1 and S2 heard. Regular rate and rhythm. No murmur, no gallop. RESPIRATORY SYSTEM: Normal AP diameter. No accessory muscle use. No wheezing, no crackles. ABDOMEN: Soft, bowel sounds present, nontender, no distention. CENTRAL NERVOUS SYSTEM: Cranial nerves II-XII grossly intact, nonfocal. EXTREMITIES: No edema, no erythema. MUSCULOSKELETAL: Bilateral straight leg test negative. LABORATORY DATA: WBC 8.4, hemoglobin 12.5, hematocrit 37.5, platelets 138. Sodium 140, potassium 4.7, chloride 107, bicarbonate 26, BUN 42, creatinine 1.6, serum glucose 175, calcium 8.4. SARS-CoV-2 PCR negative. ASSESSMENT AND PLAN: This is an 85-year-old male, status post fall, presents with back pain. 1. Back pain and ambulatory dysfunction, status post mechanical fall 1 week ago: MRI scan done as an outpatient on 01/29/2021 shows some degenerative disk disease, but nothing acute. Follows with pain management. We will observe in medical floor. Physical therapy and occupational therapy. Pain control. Consult orthopedics. 2. History of prostate cancer: On Lupron shots. 3. History of diabetes: Currently not on any medications. We will place on diabetic diet. Follow HbA1c levels. 4. Chronic diastolic heart failure: Continue his home diuretics. Monitor for any volume overload. 5. History of hypertension: On atenolol, amlodipine, Cardura, benazepril and diuretics. We will monitor his blood pressure. 6. History of benign prostatic hyperplasia: On Cardura. 7. History of sleep apnea: CPAP. 8. History of 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: On prednisone. 9. History of tracheobronchitis, chronic respiratory failure: Continue home inhalers. 10. Hyperlipidemia: On statin. 11. Chronic kidney disease stage III: Baseline creatinine possible 1.6, presented with creatinine 1.6. Follow the repeat laboratories. 12. Deep venous thrombosis prophylaxis: We will place him on heparin subcutaneously. DISPOSITION: Observation in the medical floor. PT/OT. Social service to help with discharge planning. Level 1, full code. Job ID: [id number]
[2021-02-03] MEDS ORDERED: LORazepam 0.5 MG TAB PO PRN (13:17)
[2021-02-03] MEDS: ASPIRIN 81 MG ECTAB PO SCH (13:56)
[2021-02-03] MEDS: amLODIPine BESYLATE 5 MG TAB PO SCH (13:56)
--- NOTE | 2021-02-03 15:08 | Orthopedic Consultation ---
Date of Consultation February 03, 2021 Assessment & Plan (1) Acute left-sided low back pain with left-sided sciatica: I had the opportunity to review an MRI lumbar spine was performed on 01/29/2021. Does demonstrate age-appropriate degenerative change throughout the lumbar spine. I do not appreciate any gross neural encroachment that would account for his presentation. I just would consider possible interventional pain management consult and begin physical therapy occupational therapy. He is unable to tolerate this we may need to update his MRI in case there is been a change in the past few days as he does admit his symptoms are markedly worse. At this time I do not see any indication for surgical invention. History of Present Illness Reason for Consultation: Back and left leg pain Attending Physician: Vinnie Garcia MD History of Present Illness This is a 85-year-old male who presents with a marked decline in status over the past 24 hours. He does have a history of chronic persistent back pain has been struggling with some left buttock and leg pain that became extreme last evening. He states that the day yesterday was quite active had multiple doctors appointments and had been walking all day. That evening he said symptoms involved the left buttock posterior thigh extending to the knee. He describes shocklike sensations. He states his incapacity in nature unable to ambulate. The right lower extremities asymptomatic. He has had similar symptoms like this in the past but not to this severity. At this time he is comfortable while lying in bed. Allergies Allergy/AdvReac Type Severity Reaction Status Date / Time Penicillins Allergy Intermediate RASH, ITCHY Verified 02/02/21 22:32 oxycodone AdvReac Intermediate hallucinati Verified 02/02/21 22:32 ons Opioid Analgesics AdvReac Intermediate hallucinations, Uncoded 02/02/21 22:32 can take codeine Home Medications Medication Instructions Recorded Confirmed Type amlodipine 5 mg tablet 5 mg PO DAILY 02/02/21 02/02/21 History aspirin 81 mg tablet,delayed 81 mg PO DAILY 02/02/21 02/02/21 History release (Aspirin Low Dose) atenolol 50 mg tablet 50 mg PO DAILY 02/02/21 02/02/21 History atorvastatin 20 mg tablet 20 mg PO DAILY 02/02/21 02/02/21 History benazepril 40 mg tablet 40 mg PO DAILY 02/02/21 02/02/21 History calcium carbonate 200 mg calcium 200 mg PO DAILY 02/02/21 02/02/21 History (500 mg) chewable tablet (Calcium Antacid) diclofenac sodium 1 % topical gel 4 g TOPICAL BID 02/02/21 02/02/21 History doxazosin 8 mg tablet 8 mg PO HS 02/02/21 02/02/21 History finasteride 5 mg tablet 5 mg PO DAILY 02/02/21 02/02/21 History fluticasone furoate 100 1 ea INHALATION DAILY 02/02/21 02/02/21 History mcg-vilanterol 25 mcg/dose inhalation powder (Breo Ellipta) fluticasone propionate 50 2 spray INTRANASAL DAILY 02/02/21 02/02/21 History mcg/actuation nasal spray,suspension furosemide 20 mg tablet 40 mg PO DAILY 02/02/21 02/02/21 History gabapentin 400 mg capsule 400 mg PO QID 02/02/21 02/02/21 History ipratropium 0.5 mg-albuterol 3 mg 3 ml INHALATION BID 02/02/21 02/02/21 History (2.5 mg base)/3 mL nebulization soln leuprolide (6 month) 45 mg (6 45 mg SUBCUT .EVERY 6 MONTHS 02/02/21 02/02/21 History month) subcutaneous syringe lorazepam 0.5 mg tablet 0.5 mg PO Q8 PRN 02/02/21 02/02/21 History magnesium 250 mg tablet 250 mg PO DAILY 02/02/21 02/02/21 History omeprazole 20 mg capsule,delayed 20 mg PO BID 02/02/21 02/02/21 History release ondansetron 4 mg disintegrating 4 mg PO Q8H PRN 02/02/21 02/02/21 History tablet potassium chloride 10 mEq 20 meq PO TID 02/02/21 02/02/21 History tablet,extended release prednisone 5 mg tablet 5 - 10 mg PO UD 02/02/21 02/02/21 History spironolactone 50 mg tablet 50 mg PO DAILY 02/02/21 02/02/21 History vit C 250 mg-vit E 90 mg-zinc 40 1 tab PO BID 02/02/21 02/02/21 History mg-copper 1 [id number] capsule (PreserVision AREDS-2) zinc gluconate 50 mg tablet 50 mg PO DAILY 02/02/21 02/02/21 History Patient History Social History Smoking Status: Never smoker Hx Alcohol Use: No Hx Substance Use: No Preferred Language: Guamanian Communication Ability: Effective Beliefs That Will Affect Care: None Current Living Situation: Spouse Other Information That Helps Us Care for You: No Feels Safe at Home: Yes Safety Concerns: Feels Safe At This Time Assistive Devices: Oxygen - Continuous and Walker Physical Exam Physical Exam: On exam he does not exhibit any gross tension signs with straight leg raising he has a 4+ out of 5 bilateral plantar flexion dorsiflexion quadriceps. He is able to raise his left leg off the bed. Is negative logroll. He has full sensation to light touch and cold bilateral extremities. He does have some tenderness palpation over the left SI joint no significant trochanteric or IT band discomfort. Results & Data ([facility]) Vital Signs (Past 12 Hours) Vital Signs Temp Pulse Pulse Pulse Resp BP BP 02/03/21 10:48 36.7 C 68 18 153/76 H 02/03/21 08:00 36.8 C 68 18 147/87 H 02/03/21 06:00 72 18 141/85 H 02/03/21 05:30 65 25 H 142/88 H 02/03/21 05:00 67 15 157/85 H 02/03/21 04:30 66 16 155/88 H 02/03/21 04:00 62 18 150/81 H 02/03/21 03:30 70 14 165/85 H Pulse Ox 02/03/21 10:48 97 02/03/21 08:00 98 02/03/21 06:00 98 02/03/21 05:30 98 02/03/21 05:00 97 02/03/21 04:30 97 02/03/21 04:00 97 02/03/21 03:30 99
[2021-02-03] MEDS: FLUTICASONE PROPIONATE NA SPR 16 GM BTL SCH (15:19)
[2021-02-03] MEDS: FUROSEMIDE 40 MG TAB PO SCH (15:19)
[2021-02-03] MEDS: ENALAPRIL MALEATE 10 MG TAB PO SCH (15:19)
[2021-02-03] MEDS: HEPARIN SOD 5,000 UNIT/0.5 ML VIAL SQ SCH ×2 (15:19→20:07)
[2021-02-03] MEDS: GABAPENTIN 400 MG CAP PO SCH ×2 (16:38→20:06)
--- NOTE | 2021-02-03 18:11 | Hospitalist Progress Note ---
Date of Service February 03, 2021 Assessment & Plan (1) Acute left-sided low back pain with left-sided sciatica: Plan: Has been complaining of low back pain for some time with history of spinal stenosis Has been seen Dr. Ware and has had an MRI of the lumbar spine on sixth of this month His pain has been worse for the last few days and he cannot bear the pain anymore Denies any bladder and or bowel problem MRI did show multilevel disc disease without any significant disc protrusion Appreciate spine Ortho input and recommendation-advised pain therapy assessment and continue with PT and OT (2) Intractable back pain: Plan: As above (3) Sleep apnea: Plan: Uses CPAP (4) Diabetes mellitus: Plan: We will continue diabetic diet and put him on sliding scale insulin coverage (5) Hypertension: Plan: We will continue current medications (6) Polymyalgia rheumatica: Plan: No acute arthritis Has been on prednisone-we will continue Complicating back pain (7) CKD (chronic kidney disease), stage III: Plan: Has CKD and creatinine is up at 1.60 We will give intravenous fluid and advised to drink more fluid Monitor PRP (8) Chronic diastolic heart failure: Plan: No fluid overload and no symptoms (9) History of prostate cancer: Plan: Has been getting Lupron from the urologist Admission and Anticipated Discharge Date Admission Date: February 03, 2021 Subjective 02/03/2021 The patient was seen and examined in medical floor He complains today of left lower back pain that radiates up to the left lateral aspect of thigh Does not have any problem with urine and bowel habit Review of Systems Review of Systems: All systems reviewed and are unremarkable except as noted below Musculoskeletal: Left lower spinal pain with minimal localized tenderness Physical Exam Physical Exam: Lying in bed with anxiety as the pain is not getting any better Constitutional: well developed, well nourished and + obese; not ill appearing Eyes: PERRL, conjunctivae normal, anicteric sclerae ENMT: external ear and nose normal, oropharynx normal Neck: trachea midline, no thyromegaly Respiratory: no respiratory distress Auscultation: lungs clear to auscultation bilaterally Cardiovascular: Rate/Rhythm: regular rate and regular rhythm Heart Sounds: normal S1 and normal S2; no murmur Gastrointestinal (Abdomen): Inspection/Auscultation: abdomen normal to inspection and normal bowel sounds Musculoskeletal: No acute arthritis in any joint Neurologic: Alert, awake and oriented x3. No focal sensory and motor deficit appreciated Results & Data Results & Data ([facility]) Vital Signs (Past 12 Hours) Vital Signs Temp Pulse Pulse Pulse Resp BP BP 02/03/21 15:15 36.3 C L 75 16 146/66 H 02/03/21 10:48 36.7 C 68 18 153/76 H 02/03/21 08:00 36.8 C 68 18 147/87 H 02/03/21 06:00 72 18 141/85 H Pulse Ox 02/03/21 15:15 93 02/03/21 10:48 97 02/03/21 08:00 98 02/03/21 06:00 98 Laboratory Results Short CBC 02/02/21 Range/Units 23:44 WBC 8.44 (4.8-10.8) K/uL Hgb 12.5 L (14.0-18.0) g/dL Hct 37.5 L (42-52) % Plt Count 138 (130-400) K/uL BMP 02/02/21 23:44 Sodium 140 Potassium 4.7 Chloride 107 Carbon Dioxide 26 BUN 42 H Creatinine 1.60 H Glucose 175 H Calcium 8.4 L Medications Administered Current Inpatient Medications Albuterol (Albut/Ipratrop 3mg/0.5mg Neb 3 Ml Vial) 3 ml INH BIDR MARLA Stop: 03/05/21 18:59 Amlodipine Besylate (Amlodipine Besylate 5 Mg Tab) 5 mg PO DAILY MARLA Stop: 03/05/21 13:29 Last Admin: 02/03/21 13:56 Dose: 5 mg Documented by: Aspirin (Aspirin 81 Mg Ectab) 81 mg PO DAILY MARLA Stop: 03/05/21 13:29 Last Admin: 02/03/21 13:56 Dose: 81 mg Documented by: Atorvastatin Calcium (Atorvastatin 20 Mg Tab) 20 mg PO DAILY MARLA Stop: 03/06/21 08:59 Calcium Carbonate (Calcium Carbonate 500 Mg Chewable Tab) 200 mg PO DAILY MARLA Stop: 03/06/21 08:59 Diclofenac Sodium (Diclofenac Sod 1% Gel 100 Gm Tube) 4 gm EXT BID MARLA Stop: 03/05/21 20:59 Doxazosin Mesylate (Doxazosin Mesylate 4 Mg Tab) 8 mg PO HS MARLA Stop: 03/05/21 20:59 Enalapril Maleate (Enalapril Maleate 10 Mg Tab) 40 mg PO DAILY MARLA Stop: 03/05/21 13:29 Last Admin: 02/03/21 15:19 Dose: 40 mg Documented by: Finasteride (Finasteride 5 Mg Tab) 5 mg PO DAILY MARLA Stop: 03/06/21 08:59 Fluticasone Propionate (Fluticasone Propionate Na Spr 16 Gm Btl) 2 sprays NA DAILY MARLA Stop: 03/05/21 13:29 Last Admin: 02/03/21 15:19 Dose: Not Given Documented by: Fluticasone/Vilanterol (Fluticasone/Vilanterol 100/25mcg 14 Puffs/Inhaler) 1 puffs INH DAILY MARLA Stop: 03/06/21 08:59 Furosemide (Furosemide 40 Mg Tab) 40 mg PO DAILY MARLA Stop: 03/05/21 13:29 Last Admin: 02/03/21 15:19 Dose: 40 mg Documented by: Gabapentin (Gabapentin 400 Mg Cap) 400 mg PO QID MARLA Stop: 03/05/21 16:59 Last Admin: 02/03/21 16:38 Dose: 400 mg Documented by: Heparin Sodium (Porcine) (Heparin Sod 5,000 Unit/0.5 Ml Vial) 7,500 units SQ Q8 MARLA Stop: 03/05/21 13:59 Last Admin: 02/03/21 15:19 Dose: 7,500 units Documented by: Lorazepam (Lorazepam 0.5 Mg Tab) 0.5 mg PO Q8 PRN PRN Reason: Anxiety Stop: 03/05/21 13:16 Magnesium Oxide (Magnesium Oxide 400 Mg Tab) 400 mg PO DAILY MARLA Stop: 03/06/21 08:59 Multivitamins (Multivitamin Tab) 1 tab PO QAM MARLA Stop: 03/06/21 08:59 Pantoprazole Sodium (Pantoprazole 40 Mg Tab) 40 mg PO BID MARLA Stop: 03/05/21 20:59 Spironolactone (Spironolactone 25 Mg Tab) 50 mg PO DAILY MARLA Stop: 03/06/21 08:59 Tramadol HCl (Tramadol Hcl 50 Mg Tablet) 50 mg PO Q6H PRN PRN Reason: Pain Stop: 03/05/21 09:20 Zinc Sulfate (Zinc Sulfate 220 Mg Capsule) 220 mg PO DAILY MARLA Stop: 03/06/21 08:59
[2021-02-03] MEDS: SODIUM CHLORIDE 0.9% 1000ML 1,000 ML IV SCH (18:28)
[2021-02-03] MEDS: ALBUT/IPRATROP 3MG/0.5MG NEB 3 ML VIAL INH SCH (19:06)
[2021-02-03] MEDS: PANTOprazole 40 MG TAB PO SCH (20:06)
[2021-02-03] MEDS: DICLOFENAC SOD 1% GEL 100 GM TUBE EXT SCH (20:09)
[2021-02-03] MEDS ORDERED: DOXAZosin MESYLATE 4 MG TAB PO SCH (21:00)
[2021-02-04] MEDS: HEPARIN SOD 5,000 UNIT/0.5 ML VIAL SQ SCH ×2 (05:10→15:07)
[2021-02-04] MEDS: SODIUM CHLORIDE 0.9% 1000ML 1,000 ML IV SCH (05:23)
[2021-02-04 05:44] LABS: Hematocrit (blood only) 36.8 % (42-52); Hemoglobin 12.4 g/dL (14.0-18.0); Immature Granulocytes # (auto) 0.03 K/uL (0.00-0.02); Immature Granulocytes % (auto) 0.3 %; Lymphocytes # (auto) 0.83 K/uL (1.2-3.4); Lymphocytes % (auto) 7.2 %; Mean Corpuscular Hemoglobin 31.2 pg (25-34); Mean Corpuscular Hgb Conc 33.7 g/dL (32-36); Mean Corpuscular Volume 92.5 fL (80-100); Monocytes # (auto) 0.78 K/uL (0.11-0.59); Monocytes % (auto) 6.8 %; Neutrophils # (auto) 9.83 K/uL (1.4-6.5); Neutrophils % (auto) 85.7 %; Platelet Count 132 K/uL (130-400); RDW Coefficient of Variation 13.4 % (11.5-14.5); Red Blood Count 3.98 M/uL (4.7-6.1); White Blood Count 11.47 K/uL (4.8-10.8)
[2021-02-04 06:09] LABS: BUN Creatinine Ratio 28.9 (10-20); Creatinine Clr Calc Pharmacy 38.2 ml/min; Est GFR (African American) 42.6 ml/min; Est GFR (Non-African American) 36.7 ml/min; Magnesium 2.3 mg/dl (1.8-2.4)
[2021-02-04 06:31] LABS: Potassium 4.4 mmol/L (3.5-5.1)
[2021-02-04] MEDS: ALBUT/IPRATROP 3MG/0.5MG NEB 3 ML VIAL INH SCH (07:05)
[2021-02-04] MEDS ORDERED: methylPREDNISolone 4 MG TAB, 6 DAY TAPER PO SCH (08:30)
[2021-02-04] MEDS: amLODIPine BESYLATE 5 MG TAB PO SCH (08:41)
[2021-02-04] MEDS: PANTOprazole 40 MG TAB PO SCH (08:41)
[2021-02-04] MEDS: ASPIRIN 81 MG ECTAB PO SCH (08:41)
[2021-02-04] MEDS: FUROSEMIDE 40 MG TAB PO SCH (08:42)
[2021-02-04] MEDS: ENALAPRIL MALEATE 10 MG TAB PO SCH (08:42)
[2021-02-04] MEDS: GABAPENTIN 400 MG CAP PO SCH ×2 (08:42→12:13)
[2021-02-04] MEDS: DICLOFENAC SOD 1% GEL 100 GM TUBE EXT SCH (08:43)
[2021-02-04] MEDS: FLUTICASONE PROPIONATE NA SPR 16 GM BTL SCH (08:43)
[2021-02-04] MEDS ORDERED: methylPREDNISolone 4 MG TAB PO SCH ×2 (09:00→13:00)
[2021-02-04] MEDS ORDERED: predniSONE 5 MG TAB PO SCH (09:00)
[2021-02-04] MEDS ORDERED: LIDOCAINE 5% 1 PATCH TD SCH (09:00)
[2021-02-04] MEDS ORDERED: ZINC SULFATE 220 MG CAPSULE PO SCH (09:00)
[2021-02-04] MEDS ORDERED: ATORVASTATIN 20 MG TAB PO SCH (09:00)
[2021-02-04] MEDS ORDERED: MAGNESIUM OXIDE 400 MG TAB PO SCH (09:00)
[2021-02-04] MEDS ORDERED: MULTIVITAMIN TAB PO SCH (09:00)
[2021-02-04] MEDS ORDERED: SPIRONOLACTONE 25 MG TAB PO SCH (09:00)
[2021-02-04] MEDS ORDERED: CALCIUM CARBONATE 500 MG CHEWABLE TAB PO SCH (09:00)
[2021-02-04] MEDS ORDERED: FLUTICASONE/VILANTEROL 100/25MCG 14 PUFFS/INHALER INH SCH (09:00)
[2021-02-04] MEDS ORDERED: FINASTERIDE 5 MG TAB PO SCH (09:00)
--- NOTE | 2021-02-04 11:07 | Pain Management Consultation ---
Date of Consultation February 04, 2021 Assessment & Plan (1) Pain of left sacroiliac joint: (2) Lumbar spondylosis: (3) Polymyalgia rheumatica: 1. Patient appears to have physical exam findings most consistent with left SI joint etiology with possibility of underlying lumbar spondylosis cont ributing to presenting pain complaint. Treatment options discussed. 2. Will have the patient resume his chronic prednisone at 5 mg daily 3. Will initiate a Medrol Dosepak 4. Patient will continue with tramadol 50 mg every 6 hours as needed for breakthrough pain 5. We discussed his candidacy for left SI joint injection for diagnostic/therapeutic purposes with persisting pain complaint. Patient would prefer to assess response to Medrol Dosepak prior to pursuing and would prefer to follow-up with Dr. Ware in the outpatient setting to further discuss. 6. Pain service will sign off on patient at this time. Please contact us for further evaluation during hospitalization as needed. Thank you for allowing us to participate in the care of Mr. Morales. History of Present Illness Reason for Consultation: Intractable left low back pain Requesting Physician: Vinnie Garcia MD Attending Physician: Vinnie Garcia MD History of Present Illness Mr. Morales is an 85-year-old white male with significant past medical history for type 2 diabetes, chronic steroid therapy, 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, hyperlipidemia, sleep apnea chronic diastolic failure, hypertension, CKD-stage III, IBS, Reveles's esophagus with dysphagia, prostate cancer, Hodgkin's disease, DVT, and generalized osteoarthritis who was admitted due to back pain. The patient reports a history where he had fallen while attempting to sit in a chair at his doctor's office. He reported no acute discomfort at that time but within 2-3 days developed pain in the left gluteal region traveling to the posterior thigh which has been persistent. Patient was evaluated by Dr. Ware, his pain management physician and an MRI was ordered which was completed on 01/29/2021. The patient was then to follow-up with Dr. Ware in the next few weeks, but reported due to his difficulty ambulating and the severity of pain presented to the emergency department for further evaluation. Patient indicates that his pain is episodic, sharp and stabbing in characteristic in the left lumbosacral and gluteal region with minimal radiation to the posterior thigh. His pain is exacerbated with movement. Patient indicates that his pain is a 1-2/10 in the sitting position, but his pain can escalate to a 7-8/10 with movement. He denies a true radicular pattern of pain in the lower extremity. He reports some generalized lower extremity weakness which is chronic without recent change. He denies bowel or bladder incontinence or saddle anesthesia. Patient has no further constitutional complaints. Patient was evaluated by orthopedic spine surgery-Dr. Styles yesterday who deferred any surgical intervention. Plan of care discussed with Dr. Jayleen Jordan. Pain Assessment Full Body Front + Back: 1. Left low back/gluteal region 2. Radiation to posterior thigh Allergies Allergy/AdvReac Type Severity Reaction Status Date / Time Penicillins Allergy Intermediate RASH, ITCHY Verified 02/02/21 22:32 oxycodone AdvReac Intermediate hallucinati Verified 02/02/21 22:32 ons Opioid Analgesics AdvReac Intermediate hallucinations, Uncoded 02/02/21 22:32 can take codeine Home Medications Medication Instructions Recorded Confirmed Type amlodipine 5 mg tablet 5 mg PO DAILY 02/02/21 02/02/21 History aspirin 81 mg tablet,delayed 81 mg PO DAILY 02/02/21 02/02/21 History release (Aspirin Low Dose) atenolol 50 mg tablet 50 mg PO DAILY 02/02/21 02/02/21 History atorvastatin 20 mg tablet 20 mg PO DAILY 02/02/21 02/02/21 History benazepril 40 mg tablet 40 mg PO DAILY 02/02/21 02/02/21 History calcium carbonate 200 mg calcium 200 mg PO DAILY 02/02/21 02/02/21 History (500 mg) chewable tablet (Calcium Antacid) diclofenac sodium 1 % topical gel 4 g TOPICAL BID 02/02/21 02/02/21 History doxazosin 8 mg tablet 8 mg PO HS 02/02/21 02/02/21 History finasteride 5 mg tablet 5 mg PO DAILY 02/02/21 02/02/21 History fluticasone furoate 100 1 ea INHALATION DAILY 02/02/21 02/02/21 History mcg-vilanterol 25 mcg/dose inhalation powder (Breo Ellipta) fluticasone propionate 50 2 spray INTRANASAL DAILY 02/02/21 02/02/21 History mcg/actuation nasal spray,suspension furosemide 20 mg tablet 40 mg PO DAILY 02/02/21 02/02/21 History gabapentin 400 mg capsule 400 mg PO QID 02/02/21 02/02/21 History ipratropium 0.5 mg-albuterol 3 mg 3 ml INHALATION BID 02/02/21 02/02/21 History (2.5 mg base)/3 mL nebulization soln leuprolide (6 month) 45 mg (6 45 mg SUBCUT .EVERY 6 MONTHS 02/02/21 02/02/21 History month) subcutaneous syringe lorazepam 0.5 mg tablet 0.5 mg PO Q8 PRN 02/02/21 02/02/21 History magnesium 250 mg tablet 250 mg PO DAILY 02/02/21 02/02/21 History omeprazole 20 mg capsule,delayed 20 mg PO BID 02/02/21 02/02/21 History release ondansetron 4 mg disintegrating 4 mg PO Q8H PRN 02/02/21 02/02/21 History tablet potassium chloride 10 mEq 20 meq PO TID 02/02/21 02/02/21 History tablet,extended release prednisone 5 mg tablet 5 - 10 mg PO UD 02/02/21 02/02/21 History spironolactone 50 mg tablet 50 mg PO DAILY 02/02/21 02/02/21 History vit C 250 mg-vit E 90 mg-zinc 40 1 tab PO BID 02/02/21 02/02/21 History mg-copper 1 [id number] capsule (PreserVision AREDS-2) zinc gluconate 50 mg tablet 50 mg PO DAILY 02/02/21 02/02/21 History Patient History Medical History (Updated 02/04/21 @ 12:19 by Tre Brice PA-C) Lumbar spondylosis Pain of left sacroiliac joint Social History Smoking Status: Never smoker Hx Alcohol Use: No Hx Substance Use: No Preferred Language: Citizen Of [place] Communication Ability: Effective Beliefs That Will Affect Care: None Current Living Situation: Spouse Other Information That Helps Us Care for You: No Feels Safe at Home: Yes Safety Concerns: Feels Safe At This Time Assistive Devices: Glasses, Oxygen - at Night and Walker Physical Exam Physical Exam: General: Patient sitting quietly in exam room in no acute distress. Speech and thought process appropriate. Mood and affect appropriate. Cognition intact. Head: Normocephalic and atraumatic. ENT: No evidence of nasal or oral mucosal lesions. Mucous membranes are moist. Eyes: Pupils equal round reactive to light. Neck: Supple without adenopathy and full range of motion. Abdomen: Soft and nondistended. No organomegaly. Bowel sounds active. Back/spine: Loss of lumbar lordosis. Nontender over the midline. No focal fa cet joint tenderness provocative testing. Patient tender to provocative testing of the left SI joint and nontender on the right. Minimally tender throughout the gluteal musculature without spasm or myoneural trigger points. No evidence of paravertebral or quadratus lumborum spasm. Lower extremities: SLR negative bilaterally. Well-healed bilateral surgical incisions over the patella status post bilateral TKA. Unable to perform CARMELO maneuver status post bilateral TKA. Nontender over the greater trochanter. Strength testing 4/5 throughout without focal deficit. Sensation intact without deficit. Trace ankle edema bilaterally. Neurologic: Cranial nerves grossly intact. Ambulatory function slowed, wide- based and guarded. Patient able to transfer from sitting to standing without assistance. [facility] ([facility]) Diagnostic Review MRI Findings: [facility], [id number] Magnetic Resonance Report Patient: SEFERINO MORALES Date: 01/29/21MR#: [id number]: [address] ID:[id number]: Date: 1935[facility] [place] Zip: [place], [place] [address]Uzk: [id number]: MRISex: MRoom/Bed:Att Phy: John Ware D.O.Diagnosis: LUMBAR RADICULAR PAINPri Phy: Mirza Mcgee, III, MDService Date: 01/29/21[facility] Phy:Interpreting Phy: Charly Pradhan MDAdmit Phy: Ordering Phy: John Ware D.O. cc: ~ MRI OF THE LUMBAR SPINE WITHOUT IV CONTRAST CLINICAL HISTORY: Left-sided low back pain. Lumbar radiculopathy. COMPARISON STUDY: No priors. TECHNIQUE: MRI of the lumbar spine is performed utilizing various T1- and T2- weighted sequences in the axial and sagittal planes. IV contrast was not administered for this examination. FINDINGS: Lumbar spine: Marrow signal intensity is heterogeneous. Vertebral body height is maintained throughout the lumbar spine. There is minimal retrolisthesis at L1-L2 and L2-L3. Alignment is otherwise preserved. Anterior and lateral marginal osteophytes are seen throughout. The transverse and spinous processes appear intact. There is no evidence of spondylolysis. There are numerous hemangiomas throughout the lumbosacral spine. The largest are seen in the bodies of L2 and L4. No destructive bony lesion is clearly identified. Chronic degenerative endplate changes are seen at all lumbar levels. Minimal endplate edema is seen at L2-L3 and L3-L4. Vertebral discs: Degenerative disc desiccation is seen throughout the lumbar spine. There is moderate to severe loss of height at all lumbar levels, greatest at L2-L3 and L3-L4. Spinal cord: The visualized spinal cord is normal in morphology and signal intensity. The conus medullaris terminates at the L1-L2 interspace. The nerve roots of the cauda equina are normal in morphology. T12-L1: This is only seen on the sagittal series. There is broad-based posterior disc bulge. No acquired compromise of the central canal is identified. There is mild bilateral neural foraminal narrowing. L1-L2: There is mild posterior disc bulge. This abuts the transiting left-sided nerve roots. No acquired compromise of the central canal is seen. There is mild left-sided subarticular stenosis. Mild bilateral neural foraminal narrowing is seen bilaterally. L2-L3: There is a posterior disc osteophyte complex which abuts the transiting nerve roots. Lateral disc bulge is seen bilaterally. This contributes to bilateral subarticular stenosis and may impinge on the exiting bilateral L2 nerve roots. There is moderate right and mild left neural foraminal stenosis at this level. L3-L4: There is a small posterior disc osteophyte complex which abuts the transiting nerve roots. No acquired compromise of the central canal is identified. There is bilateral subarticular stenosis, with possible impingement on the exiting bilateral L3 nerve roots. In conjunction with facet arthropathy, there is moderate right greater than left neural foraminal stenosis. L4-L5: There is left lateral disc bulge. This contributes to subarticular stenosis and impinges on the exiting left L4 nerve root. The central canal is clear. In conjunction with facet arthropathy, there is moderate left and mild right neural foraminal stenosis. L5-S1: Lateral disc bulge is seen bilaterally, left greater than right. This contributes to severe left-sided subarticular stenosis and likely impinges on the exiting left L5 nerve root. This may also abut the exiting right L5 nerve root. The central canal is clear. In conjunction with facet arthropathy, there is moderate left and mild right neural foraminal stenosis. Sacrum: The visualized sacrum is normal in morphology and signal intensity. Soft tissues: There is fatty atrophy of the paraspinous musculature. The paraspinous soft tissues otherwise normal in appearance. The retroperitoneal structures are grossly unremarkable but incompletely assessed. IMPRESSION: 1. Multilevel lumbosacral spondylosis as above. See discussion for detailed level by level analysis. 2. No significant acquired compromise of the central canal is identified. 3. No destructive bony process is identified. 4. Degenerative disc disease as above with associated endplate change. Dictated: 01/29/2021 8:32 PM Transcribed: 01/29/2021 9:28 PM Monica [id number] [email or web address] Electronically signed by: Charly Pradhan M.D. 01/29/2021 9:30 PM Dictated: 01/29/212031Transcribed: 01/29/212127
--- NOTE | 2021-02-04 12:15 | Orthopedic Progress Note ---
Date of Service February 04, 2021 Assessment & Plan (1) Acute left-sided low back pain with left-sided sciatica: Plan: This time the patient states he is plans to go home. I have mentioned that if he continues to decline we would have to consider updating his imaging. He will follow up with our office if there is any change or decline in his status. Admission and Anticipated Discharge Date Admission Date: February 03, 2021 Subjective Patient states his leg pain is somewhat improved today. Still notes it in the left SI joint left buttock and posterior thigh. He is anxious to go home. Physical Exam Physical Exam: He is in the chair at the bedside. Is excellent strength testing. No gross tension signs. Negative logroll. Results & Data ([facility]) Vital Signs (Past 12 Hours) Vital Signs Temp Pulse Resp BP Pulse Ox 02/04/21 07:29 36.8 C 78 16 129/64 92 02/04/21 07:06 80 20 94
--- NOTE | 2021-02-04 13:38 | Hospitalist Progress Note ---
Date of Service February 04, 2021 Assessment & Plan (1) Acute left-sided low back pain with left-sided sciatica: Plan: Has been complaining of low back pain for some time with history of spinal stenosis Has been seen Dr. Ware and has had an MRI of the lumbar spine on sixth of this month His pain has been worse for the last few days and he cannot bear the pain anymore Denies any bladder and or bowel problem MRI did show multilevel disc disease without any significant disc protrusion Appreciate spine Ortho input and recommendation-advised pain therapy assessment and continue with PT and OT Has left sacroiliitis Appreciate pain therapy input and recommendation Medrol Dosepak was started Outpatient follow-up with Dr. Ware (2) Intractable back pain: Plan: As above (3) Sleep apnea: Plan: Uses CPAP (4) Diabetes mellitus: Plan: We will continue diabetic diet and put him on sliding scale insulin coverage (5) Hypertension: Plan: We will continue current medications (6) Polymyalgia rheumatica: Plan: No acute arthritis Has been on prednisone-we will continue Complicating back pain (7) CKD (chronic kidney disease), stage III: Plan: Has CKD and creatinine is up at 1.60 We will give intravenous fluid and advised to drink more fluid Monitor PRP-creatinine remains stable (8) Chronic diastolic heart failure: Plan: No fluid overload and no symptoms (9) History of prostate cancer: Plan: Has been getting Lupron from the urologist Plan: Discharge home this afternoon Admission and Anticipated Discharge Date Admission Date: February 03, 2021 Subjective 02/03/2021 The patient was seen and examined in medical floor He complains today of left lower back pain that radiates up to the left lateral aspect of thigh Does not have any problem with urine and bowel habit 02/04/2021 The patient was seen and examined in medical floor He has been feeling much better Less pain in the left buttock and upper thigh No problem with urine and bowel habit Review of Systems Review of Systems: All systems reviewed and are unremarkable except as noted below Musculoskeletal: Left lower spinal pain with without any localized tenderness Physical Exam Physical Exam: Lying in bed with anxiety as the pain is not getting any better Constitutional: well developed, well nourished and + obese; not ill appearing Eyes: PERRL, conjunctivae normal, anicteric sclerae ENMT: external ear and nose normal, oropharynx normal Neck: trachea midline, no thyromegaly Respiratory: no respiratory distress Auscultation: lungs clear to auscultation bilaterally Cardiovascular: Rate/Rhythm: regular rate and regular rhythm Heart Sounds: normal S1 and normal S2; no murmur Gastrointestinal (Abdomen): Inspection/Auscultation: abdomen normal to inspection and normal bowel sounds Musculoskeletal: No spinal tenderness. No radiculopathy Neurologic: Alert, awake and oriented x3. No focal sensory or motor deficit appreciated Results & Data Results & Data ([facility]) Vital Signs (Past 12 Hours) Vital Signs Temp Pulse Resp BP Pulse Ox 02/04/21 07:29 36.8 C 78 16 129/64 92 02/04/21 07:06 80 20 94 Laboratory Results Short CBC 02/04/21 Range/Units 05:19 WBC 11.47 H (4.8-10.8) K/uL Hgb 12.4 L (14.0-18.0) g/dL Hct 36.8 L (42-52) % Plt Count 132 (130-400) K/uL BMP 02/04/21 05:19 Sodium 140 Potassium 4.4 Chloride 108 H Carbon Dioxide 27 BUN 49 H Creatinine 1.68 H Glucose 124 H Calcium 8.0 L Medications Administered Current Inpatient Medications Albuterol (Albut/Ipratrop 3mg/0.5mg Neb 3 Ml Vial) 3 ml INH BIDR MARLA Stop: 03/05/21 18:59 Last Admin: 02/04/21 07:05 Dose: 3 ml Documented by: Amlodipine Besylate (Amlodipine Besylate 5 Mg Tab) 5 mg PO DAILY MARLA Stop: 03/05/21 13:29 Last Admin: 02/04/21 08:41 Dose: 5 mg Documented by: Aspirin (Aspirin 81 Mg Ectab) 81 mg PO DAILY MARLA Stop: 03/05/21 13:29 Last Admin: 02/04/21 08:41 Dose: 81 mg Documented by: Atorvastatin Calcium (Atorvastatin 20 Mg Tab) 20 mg PO DAILY MARLA Stop: 03/06/21 08:59 Last Admin: 02/04/21 08:42 Dose: 20 mg Documented by: Calcium Carbonate (Calcium Carbonate 500 Mg Chewable Tab) 500 mg PO DAILY MARLA Stop: 03/06/21 08:59 Diclofenac Sodium (Diclofenac Sod 1% Gel 100 Gm Tube) 4 gm EXT BID MARLA Stop: 03/05/21 20:59 Last Admin: 02/04/21 08:43 Dose: 4 gm Documented by: Doxazosin Mesylate (Doxazosin Mesylate 4 Mg Tab) 8 mg PO HS MARLA Stop: 03/05/21 20:59 Last Admin: 02/03/21 20:07 Dose: 8 mg Documented by: Enalapril Maleate (Enalapril Maleate 10 Mg Tab) 40 mg PO DAILY MARLA Stop: 03/05/21 13:29 Last Admin: 02/04/21 08:42 Dose: 40 mg Documented by: Finasteride (Finasteride 5 Mg Tab) 5 mg PO DAILY MARLA Stop: 03/06/21 08:59 Last Admin: 02/04/21 08:42 Dose: 5 mg Documented by: Fluticasone Propionate (Fluticasone Propionate Na Spr 16 Gm Btl) 2 sprays NA DAILY MARLA Stop: 03/05/21 13:29 Last Admin: 02/04/21 08:43 Dose: Not Given Documented by: Fluticasone/Vilanterol (Fluticasone/Vilanterol 100/25mcg 14 Puffs/Inhaler) 1 puffs INH DAILY MARLA Stop: 03/06/21 08:59 Last Admin: 02/04/21 08:43 Dose: 1 puffs Documented by: Furosemide (Furosemide 40 Mg Tab) 40 mg PO DAILY MARLA Stop: 03/05/21 13:29 Last Admin: 02/04/21 08:42 Dose: 40 mg Documented by: Gabapentin (Gabapentin 400 Mg Cap) 400 mg PO QID MARLA Stop: 03/05/21 16:59 Last Admin: 02/04/21 12:13 Dose: 400 mg Documented by: Heparin Sodium (Porcine) (Heparin Sod 5,000 Unit/0.5 Ml Vial) 7,500 units SQ Q8 MARLA Stop: 03/05/21 13:59 Last Admin: 02/04/21 05:10 Dose: 7,500 units Documented by: Sodium Chloride (Nss 1000ml) 1,000 mls @ 80 mls/hr IV .[id number] MARLA Stop: 02/05/21 07:44 Last Admin: 02/04/21 05:23 Dose: 80 mls/hr Documented by: Lidocaine (Lidocaine 5% 1 Patch) 1 patch TD QAM MARLA Stop: 03/06/21 08:59 Last Admin: 02/04/21 09:33 Dose: 1 patch Documented by: Lorazepam (Lorazepam 0.5 Mg Tab) 0.5 mg PO Q8 PRN PRN Reason: Anxiety Stop: 03/05/21 13:16 Magnesium Oxide (Magnesium Oxide 400 Mg Tab) 400 mg PO DAILY MARLA Stop: 03/06/21 08:59 Last Admin: 02/04/21 08:42 Dose: 400 mg Documented by: Methylprednisolone (Methylprednisolone 4 Mg Tab) 8 mg PO 0900,2100 MARLA Stop: 02/04/21 21:01 Last Admin: 02/04/21 09:33 Dose: 8 mg Documented by: Methylprednisolone (Methylprednisolone 4 Mg Tab) 4 mg PO 1300,1800 [facility] Stop: 02/04/21 18:01 Last Admin: 02/04/21 12:14 Dose: 4 mg Documented by: Methylprednisolone (Methylprednisolone 4 Mg Tab) 4 mg PO 0700,1300,1800 [facility] Stop: 02/05/21 18:01 Methylprednisolone (Methylprednisolone 4 Mg Tab) 8 mg PO HS MARLA Stop: 02/05/21 21:01 Methylprednisolone (Methylprednisolone 4 Mg Tab) 4 mg PO 0700,1300,1800,2100 [facility] Stop: 02/06/21 21:01 Methylprednisolone (Methylprednisolone 4 Mg Tab) 4 mg PO 0700,1300,2100 [facility] Stop: 02/07/21 21:01 Methylprednisolone (Methylprednisolone 4 Mg Tab) 4 mg PO 0700,2100 [facility] Stop: 02/08/21 21:01 Methylprednisolone (Methylprednisolone 4 Mg Tab) 4 mg PO 0700 [facility] Stop: 02/09/21 07:01 Miscellaneous (Remove Lidoderm Patch) 1 ea N/A DAILY@2100 [facility] Stop: 03/06/21 20:59 Multivitamins (Multivitamin Tab) 1 tab PO QAM MARLA Stop: 03/06/21 08:59 Last Admin: 02/04/21 08:43 Dose: 1 tab Documented by: Pantoprazole Sodium (Pantoprazole 40 Mg Tab) 40 mg PO BID [facility] Stop: 03/05/21 20:59 Last Admin: 02/04/21 08:41 Dose: 40 mg Documented by: Prednisone (Prednisone 5 Mg Tab) 5 mg PO DAILY [facility] Stop: 03/06/21 08:59 Last Admin: 02/04/21 09:33 Dose: 5 mg Documented by: Spironolactone (Spironolactone 25 Mg Tab) 50 mg PO DAILY MARLA Stop: 03/06/21 08:59 Last Admin: 02/04/21 08:43 Dose: 50 mg Documented by: Tramadol HCl (Tramadol Hcl 50 Mg Tablet) 50 mg PO Q6H PRN PRN Reason: Pain Stop: 03/05/21 09:20 Last Admin: 02/04/21 07:53 Dose: 50 mg Documented by: Zinc Sulfate (Zinc Sulfate 220 Mg Capsule) 220 mg PO DAILY MARLA Stop: 03/06/21 08:59 Last Admin: 02/04/21 08:43 Dose: 220 mg Documented by:
[2021-02-05] MEDS ORDERED: methylPREDNISolone 4 MG TAB PO SCH ×2 (07:00→21:00)
--- NOTE | 2021-02-05 07:26 | Discharge Summary ---
Date of Service February 05, 2021 Admission HPI Per Admitting Provider DICTATED BY: Lamont Nugent MD DATE OF ADMISSION: 02/03/2021. CHIEF COMPLAINT: Severe back pain. HISTORY OF PRESENT ILLNESS: This is an 85-year-old male with past medical history significant for type 2 diabetes, steroid-induced diabetes, hyperlipidemia, chronic respiratory failure with hypoxia, tracheobronchitis, sleep apnea, chronic diastolic failure, hypertension, chronic kidney disease stage III, irritable bowel syndrome, dysphagia, Reveles's esophagus, history of prostate cancer, BPH, 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, senile osteoporosis, bilateral leg edema, generalized osteoarthritis, history of spinal stenosis, history of Hodgkin disease, history of DVT, presents with back pain. The patient says about 1 week ago, he was at his PCP's office when he was sitting in a chair, he fell on his back. At that time, he was okay, but later developed left buttock pain radiating to the leg. Then saw Dr. Ware, pain management and he was ordered an MRI scan, which was done on 01/29/2021, which showed multilevel lumbosacral spondylosis. The patient says he has ongoing back pain, he is having difficulty walking, that is why he came to the ER. Currently resting comfortably, hemodynamically stable. Denies any chest pain, no shortness of breath, no cough, no fevers, no headache, no blurred vision, no earache, no runny nose, no sore throat. Appetite is okay. No dysphagia, no nausea, no abdominal pain, normal bowel and bladder movements. He had his COVID shot. Admission Exam Per Admitting Provider GENERAL: The patient is obese, not in acute distress. VITAL SIGNS: Temperature 37.2, pulse 72, respiratory rate 18, blood pressure 141/85, oxygen 98% on room air. HEENT: Pupils equal, round and reactive to light. Oral mucosa moist. NECK: No JVD, no neck masses. CARDIOVASCULAR: S1 and S2 heard. Regular rate and rhythm. No murmur, no gallop. RESPIRATORY SYSTEM: Normal AP diameter. No accessory muscle use. No wheezing, no crackles. ABDOMEN: Soft, bowel sounds present, nontender, no distention. CENTRAL NERVOUS SYSTEM: Cranial nerves II-XII grossly intact, nonfocal. EXTREMITIES: No edema, no erythema. MUSCULOSKELETAL: Bilateral straight leg test negative. Principal Diagnosis Left sacroiliitis, chronic back pain, sleep apnea, type 2 diabetes, 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, hypertension Discharge Exam Constitutional well developed, well nourished and + obese; not ill appearing Eyes PERRL, conjunctivae normal, anicteric sclerae ENMT external ear and nose normal, oropharynx normal Neck trachea midline, no thyromegaly Respiratory no respiratory distress Auscultation: lungs clear to auscultation bilaterally Cardiovascular Rate/Rhythm: regular rate and regular rhythm Heart Sounds: normal S1 and normal S2; no murmur Gastrointestinal (Abdomen) Inspection/Auscultation: abdomen normal to inspection and normal bowel sounds Discharge Data Allergies Allergy/AdvReac Type Severity Reaction Status Date / Time Penicillins Allergy Intermediate RASH, ITCHY Verified 02/02/21 22:32 oxycodone AdvReac Intermediate hallucinati Verified 02/02/21 22:32 ons Opioid Analgesics AdvReac Intermediate hallucinations, Uncoded 02/02/21 22:32 can take codeine Consultations 02/03/21 00:08 ED Decision to Admit Stat 02/03/21 09:21 Consult Orthopedic Surgery Routine 02/03/21 18:11 Consult Pain Management Routine Hospital Course (1) Acute left-sided low back pain with left-sided sciatica: Has been complaining of low back pain for some time with history of spinal stenosis Has been seen Dr. Ware and has had an MRI of the lumbar spine on sixth of this month His pain has been worse for the last few days and he cannot bear the pain anymore Denies any bladder and or bowel problem MRI did show multilevel disc disease without any significant disc protrusion Appreciate spine Ortho input and recommendation-advised pain therapy assessment and continue with PT and OT Has left sacroiliitis Appreciate pain therapy input and recommendation Medrol Dosepak was started Outpatient follow-up with Dr. Ware (2) Intractable back pain: As above (3) Sleep apnea: Uses CPAP (4) Diabetes mellitus: We will continue diabetic diet and put him on sliding scale insulin coverage (5) Hypertension: We will continue current medications (6) Polymyalgia rheumatica: No acute arthritis Has been on prednisone-we will continue Complicating back pain (7) CKD (chronic kidney disease), stage III: Has CKD and creatinine is up at 1.60 We will give intravenous fluid and advised to drink more fluid Monitor PRP-creatinine remains stable (8) Chronic diastolic heart failure: No fluid overload and no symptoms (9) History of prostate cancer: Has been getting Lupron from the urologist Discharge home this afternoon Total Time Total Time Spent Total Time Spent (In Minutes): 35 minutes Discharge Plan Discharge Items Patient Disposition: Home - Self-Care Reason For Visit: BACK PAIN Discharge Diagnosis: Left sacroiliitis, chronic back pain, sleep apnea, type 2 diabetes, 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, hypertension Activity: Resume your previous activity Non-emergency contact: Primary Care Provider Call non-emergency contact if: you have any medication questions and your symptoms worsen Follow-up/Referrals: Mirza Mcgee MD [Primary Care Provider] - (Date & Time 02/08/2021 11:20 AM Provider Tanvi Klein [facility] [place] ) Diet: Carb Consistent or DM2 Addtl Attending Provider Instructions: Please take precautions to avoid falls Try to use less of narcotics pain medication as it can cause drowsiness, confusion and constipation Have follow-up appointment with Dr. Ware and Dr. Mcgee Pending Studies at Discharge: No Stand-Alone Forms: My [facility] [employer], Opioid Pain Management, Smoking Cessation Medications and DC Order Prescriptions: New tramadol 50 mg Tablet 50 mg PO Q6H PRN (Reason: pain) Qty: 20 RF: 0 methylprednisolone [Medrol (Rolan)] 4 mg tablets,dose pack 4 mg PO UD Qty: 21 RF: 0 Continued doxazosin 8 mg tablet 8 mg PO HS RF: 0 finasteride 5 mg tablet 5 mg PO DAILY RF: 0 spironolactone 50 mg tablet 50 mg PO DAILY RF: 0 furosemide 20 mg tablet 40 mg PO DAILY RF: 0 potassium chloride 10 mEq tablet extended release 20 meq PO TID RF: 0 omeprazole 20 mg capsule,delayed release(DR/EC) 20 mg PO BID RF: 0 fluticasone propionate 50 mcg/actuation spray,suspension 2 spray INTRANASAL DAILY RF: 0 ipratropium-albuterol 0.5 mg-3 mg(2.5 mg base)/3 mL solution for nebulization 3 ml INHALATION BID RF: 0 prednisone 5 mg tablet 5 - 10 mg PO UD RF: 0 benazepril 40 mg tablet 40 mg PO DAILY RF: 0 atenolol 50 mg tablet 50 mg PO DAILY RF: 0 atorvastatin 20 mg tablet 20 mg PO DAILY RF: 0 gabapentin 400 mg capsule 400 mg PO QID RF: 0 Breo Ellipta 100-25 mcg/dose blister with device 1 ea INHALATION DAILY RF: 0 amlodipine 5 mg tablet 5 mg PO DAILY RF: 0 aspirin [Aspirin Low Dose] 81 mg Tablet,Delayed Release (Dr/Ec) 81 mg PO DAILY RF: 0 lorazepam 0.5 mg tablet 0.5 mg PO Q8 PRN (Reason: Anxiety) RF: 0 zinc gluconate 50 mg Tablet 50 mg PO DAILY RF: 0 magnesium 250 mg Tablet 250 mg PO DAILY RF: 0 leuprolide (6 month) 45 mg Syringe 45 mg SUBCUT .EVERY 6 MONTHS RF: 0 diclofenac sodium 1 % gel 4 g TOPICAL BID RF: 0 PreserVision AREDS-2 250-90-40-1 mg Capsule 1 tab PO BID RF: 0 calcium carbonate [Calcium Antacid] 200 mg calcium (500 mg) Tablet,Chewable 200 mg PO DAILY RF: 0 ondansetron 4 mg Tablet,Disintegrating 4 mg PO Q8H PRN (Reason: Nausea) RF: 0 Discharge Orders: Discharge Order (Routine); Ordered 02/04/21 Ordered By: Vinnie Valentin/Other Patient Handouts: Anatomy of the Sacroiliac Joint Admission Data Admit Date/Time: 02/03/21 06:46 Attending Provider: Vinnie Garcia Admit Provider: Lamont Nugent Primary Care Provider: Mirza Mcgee Other Providers: Lamont Nugent ; Cayden Styles Jennifer L Other Interventions: Discharge Summary Assessment (RN) Last Done: 02/04/21 15:12
[2021-02-05] MEDS ORDERED: CALCIUM CARBONATE 500 MG CHEWABLE TAB PO SCH (09:00)
[2021-02-06] MEDS ORDERED: methylPREDNISolone 4 MG TAB PO SCH (07:00)
[2021-02-07] MEDS ORDERED: methylPREDNISolone 4 MG TAB PO SCH (07:00)
[2021-02-08] MEDS ORDERED: methylPREDNISolone 4 MG TAB PO SCH (07:00)
[2021-02-09] MEDS ORDERED: methylPREDNISolone 4 MG TAB PO SCH (07:00)
== END 2021-02-04 16:17 | disposition home or self-care (01) ==
LOC: EDSEX → EDINP 21:32 → ED 21:32 → 3N 02-03 10:28

== ENCOUNTER 2021-05-07 19:45 | Inpatient (IN) ==
[2021-05-07] MEDS ORDERED: SODIUM CHLORIDE 0.9% 1000ML 1,000 ML IV STA (20:10)
[2021-05-07 20:32] LABS: Hematocrit (blood only) 35.1 % (42-52); Hemoglobin 11.7 g/dL (14.0-18.0); Immature Granulocytes # (auto) 0.01 K/uL (0.00-0.02); Immature Granulocytes % (auto) 0.4 %; Lymphocytes # (auto) 0.32 K/uL (1.2-3.4); Lymphocytes % (auto) 12.1 %; Mean Corpuscular Hemoglobin 31.2 pg (25-34); Mean Corpuscular Hgb Conc 33.3 g/dL (32-36); Mean Corpuscular Volume 93.6 fL (80-100); Mean Platelet Volume 10.5 fL (7.4-10.4); Monocytes # (auto) 0.39 K/uL (0.11-0.59); Monocytes % (auto) 14.8 %; Neutrophils # (auto) 1.92 K/uL (1.4-6.5); Neutrophils % (auto) 72.7 %; Platelet Count 119 K/uL (130-400); RDW Coefficient of Variation 13.1 % (11.5-14.5); Red Blood Count 3.75 M/uL (4.7-6.1); White Blood Count 2.64 K/uL (4.8-10.8)
--- NOTE | 2021-05-07 20:34 | Emergency Department Note ---
Impression & Plan COVID-19, Hypoxia, Nausea, Fever ED Provider Note INFORMANT: Patient ED PROVIDER(S): Mirza Vital MD CHIEF COMPLAINT: Illness PLAN: Disposition: Admitted Condition: Good Outpatient prescription management: none Referral: None MEDICAL DECISION MAKING: Patient presented to the emergency department because of increased shortness of breath and fever. Patient was requiring additional supplemental oxygen. He was doing well with Tylenol provided by EMS. Patient CBC and chemistry panel are unremarkable. Patient was given Decadron. Patient was hydrated. He will need further management in the hospital. Consultation was made with the [facility] Hospitalist service. Patient was evaluated in the ER and admitted. Triage Nursing notes reviewed and agree them. Vital Signs: reviewed and remarkable for hypoxia Differential diagnosis: COVID-19, reactive airway disease, pneumonia, pneumothorax, COPD, CHF, infections, cardiac ischemia, pulmonary embolism, musculoskeletal, gastrointestinal, as well as other pathologies. Diagnostics interpreted by me: ECG: Twelve-lead ECG reveals normal sinus rhythm at 90 bpm. LVH and left axis deviation. No ST elevation or depression. No PACs or PVCs. Cardiac Monitoring:Cardiac monitoring ordered by me: The patient was placed on continuous cardiac monitoring and observed. It revealed a normal sinus rhythm at 90 beats per minute without ectopy or evidence of dysrhythmia. Imaging studies: Chest x-ray. Findings: A chest x-ray was performed and revealed no pneumothorax, effusion, infiltrate, pulmonary edema, free air under the diaphragm, or wide mediastinum. Impression: No acute disease. HPI: The patient is a 86 year old male who presents to the Emergency Room with complaints of fever. This started earlier this week and is persisting. The patient also notes the following associated symptoms, cough, weakness, nausea and increased oxygen demand. He normally wears 1-1/2 L but had to increase it to 2 L. He was diagnosed this week with COVID-19. He is immunized but has not received a booster. He was 86% on 2 L. He was increased to 4 L by EMS and was found to have an oxygen saturation in the mid 90s. He was also given 4 mg of Zo pari and 1 g of Tylenol IV secondary to his high fever of 103. Patient denies any current pain. Pt denies LOC, headache, fevers, chills, diaphoresis, visual changes, neck pain, chest pain, vomiting, abdominal pain, back pain, melena, hematochezia, urinary symptoms, numbness, lymphadenopathy, rash, or other complaints. ROS: See above HPI for pertinent positives & negatives. A total of 10 systems reviewed and were otherwise negative. PAST MEDICAL HISTORY:See Below , prostate cancer, CHF PAST SURGICAL HISTORY:See Below, FAMILY HISTORY:See Below SOCIAL HISTORY:See Below, HOME MEDICATIONS:See Below ALLERGIES:See Below VITALS:See Below PHYSICAL EXAMINATION: GENERAL: Awake, alert, dyspneic-appearing, in no distress HENT: Normocephalic, atraumatic. Oropharynx unremarkable. EYES: Normal conjunctiva. Sclera non-icteric. NECK: Inspection normal. Non-tender. Supple. No nuchal rigidity. FROM. No masses. RESPIRATORY: Relatively clear to auscultation. No wheezes. Few scattered rales. Increased respiratory effort. CARDIAC: Normal rate. Normal rhythm. No murmurs. No rubs. Extremities warm and well perfused. Pulses equal. No JVD. GI: Soft, non-distended. No tenderness to palpation. No rebound or guarding. No masses. RECTAL: Deferred. MUSCULOSKELETAL: Atraumatic. Chest examination reveals no tenderness. The back is symmetrical on inspection without obvious abnormality. There is no CVA tenderness to palpation. No joint edema. LOWER EXTREMITIES: Calves are equal size bilaterally and non-tender. No edema. No discoloration. NEURO: Normal sensorium. No sensory or motor deficits noted. SKIN: No rash or jaundice noted. 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 [employer] Loom Required: No Beliefs That Will Affect Care: Tenriism Current Living Situation: Spouse Other Information That Helps Us Care for You: No Feels Safe at Home: Yes Safety Concerns: Feels Safe At This Time Assistive Devices: Hearing Aid - Left and Oxygen - Continuous Allergies Allergies Allergy/AdvReac Type Severity Reaction Status Date / Time Penicillins Allergy Intermediate RASH, ITCHY Verified 05/07/21 20:46 oxycodone AdvReac Intermediate hallucinati Verified 05/07/21 20:46 ons Opioid Analgesics AdvReac Intermediate hallucinations, Uncoded 05/07/21 20:46 can take codeine Home Meds Home Medications Medication Instructions Recorded Confirmed amlodipine 5 mg tablet 5 mg PO DAILY 02/02/21 05/07/21 aspirin 81 mg tablet,delayed 81 mg PO DAILY 02/02/21 05/07/21 release (Aspirin Low Dose) atenolol 50 mg tablet 50 mg PO DAILY 02/02/21 05/07/21 atorvastatin 20 mg tablet 20 mg PO DAILY 02/02/21 05/07/21 benazepril 40 mg tablet 40 mg PO DAILY 02/02/21 05/07/21 calcium carbonate 200 mg calcium 200 mg PO DAILY 02/02/21 05/07/21 (500 mg) chewable tablet (Calcium Antacid) diclofenac sodium 1 % topical gel 4 g TOPICAL BID PRN 02/02/21 05/07/21 doxazosin 8 mg tablet 8 mg PO HS 02/02/21 05/07/21 finasteride 5 mg tablet 5 mg PO DAILY 02/02/21 05/07/21 fluticasone furoate 100 1 ea INHALATION DAILY 02/02/21 05/07/21 mcg-vilanterol 25 mcg/dose inhalation powder (Breo Ellipta) fluticasone propionate 50 2 spray INTRANASAL DAILY PRN 02/02/21 05/07/21 mcg/actuation nasal spray,suspension furosemide 20 mg tablet 20 mg PO DAILY 02/02/21 05/07/21 gabapentin 400 mg capsule 400 mg PO QID 02/02/21 05/07/21 ipratropium 0.5 mg-albuterol 3 mg 3 ml INHALATION BID 02/02/21 05/07/21 (2.5 mg base)/3 mL nebulization soln leuprolide (6 month) 45 mg (6 45 mg SUBCUT .EVERY 6 MONTHS 02/02/21 05/07/21 month) subcutaneous syringe magnesium 250 mg tablet 250 mg PO DAILY 02/02/21 05/07/21 omeprazole 20 mg capsule,delayed 20 mg PO BID 02/02/21 05/07/21 release potassium chloride 10 mEq 20 meq PO TID 02/02/21 05/07/21 tablet,extended release prednisone 5 mg tablet 5 - 10 mg PO UD 02/02/21 05/07/21 spironolactone 50 mg tablet 25 mg PO DAILY 02/02/21 05/07/21 vit C 250 mg-vit E 90 mg-zinc 40 1 tab PO BID 02/02/21 05/07/21 mg-copper 1 [id number] capsule (PreserVision AREDS-2) zinc gluconate 50 mg tablet 50 mg PO DAILY 02/02/21 05/07/21 azithromycin 250 mg tablet 250 - 500 mg PO DAILY 05/07/21 05/07/21 prednisone 20 mg tablet 20 mg PO BID 05/07/21 05/07/21 Results & Data (ED) Vital Signs Vital Signs - 24 hr 05/07/21 20:03 Temperature 38.6 C H Temperature Source Oral Pulse Rate 90 Pulse Rhythm Regular Pulse Strength Normal Respiratory Rate 16 Respiratory Effort / Characteristics Non-Labored Respiratory Depth Normal Respiratory Pattern Regular Blood Pressure 136/68 Blood Pressure Mean 90 Blood Pressure Position Lying Pulse Oximetry 97 Oxygen Delivery Method Nasal Cannula Oxygen Flow Rate 4 Sepsis Recent Fever Within 48 Hours Yes Sepsis New/Unexplained Change in Mental Status No Sepsis Action Taken by Nursing No Action Required Laboratory Data Result diagrams: 05/08/21 05:33 05/08/21 05:33 Lab Results 05/07/21 05/07/21 05/07/21 Range/Units 20:21 20:21 20:21 WBC 2.64 L (4.8-10.8) K/uL RBC 3.75 L (4.7-6.1) M/uL Hgb 11.7 L (14.0-18.0) g/dL Hct 35.1 L (42-52) % MCV 93.6 (80-100) fL MCH 31.2 (25-34) pg MCHC 33.3 (32-36) g/dL RDW Std Deviation 45.0 (36.4-46.3) fL RDW Coeff of Scott 13.1 (11.5-14.5) % Plt Count 119 L (130-400) K/uL MPV 10.5 H (7.4-10.4) fL Immature Gran % (Auto) 0.4 % Neut % (Auto) 72.7 % Lymph % (Auto) 12.1 % Kent % (Auto) 14.8 % Eos % (Auto) 0.0 % Baso % (Auto) 0.0 % Neut # (Auto) 1.92 (1.4-6.5) K/uL Lymph # (Auto) 0.32 L (1.2-3.4) K/uL Kent # (Auto) 0.39 (0.11-0.59) K/uL Eos # (Auto) 0.00 (0-0.5) K/uL Baso # (Auto) 0.00 (0-0.2) K/uL Immature Gran # (Auto) 0.01 (0.00-0.02) K/uL Sodium 138 (136-145) mmol/L Potassium 3.7 (3.5-5.1) mmol/L Chloride 106 (98-107) mmol/L Carbon Dioxide 26 (21-32) mmol/L Anion Gap 6.0 (3-11) BUN 16 (7-18) mg/dl Creatinine 1.17 (0.6-1.4) mg/dl Est Cr Clr Drug Dosing 48.7 ml/min Est GFR ( Amer) 65.5 ml/min Est GFR (Non-Af Amer) 56.5 ml/min BUN/Creatinine Ratio 13.7 (10-20) Glucose 108 H (70-99) mg/dl Lactate (0.4-2.0) mmol/L Calcium 7.5 L (8.5-10.1) mg/dl Total Bilirubin 0.4 (0.2-1) mg/dl AST 38 H (15-37) U/L ALT 31 (12-78) U/L Alkaline Phosphatase 47 (45-117) U/L Troponin I 0.030 (0-0.045) ng/ml Total Protein 6.3 L (6.4-8.2) gm/dl Albumin 2.7 L (3.4-5.0) gm/dl Globulin 3.6 (2.5-4.0) gm/dl Albumin/Globulin Ratio 0.7 L (0.9-2) Procalcitonin < 0.05 (0-0.5) ng/ml Urine Color Urine Appearance (Clear) Urine pH (4.5-7.5) Ur Specific [place] (1.000-1.030) Urine Protein (Negative) Urine Glucose (UA) (Negative) Urine Ketones (Negative) Urine Blood (Negative) Urine Nitrite (Negative) Urine Bilirubin (Negative) Urine Urobilinogen (Negative) Ur Leukocyte Esterase (Negative) Urine WBC (Auto) (0-5) /hpf Urine RBC (Auto) (0-4) /hpf U Hyaline Cast (Auto) (0-5) /lpf U Epithel Cells (Auto) (0-5) /lpf Urine Bacteria (Auto) (Negative) COVID-19 Eval Order SARS-CoV-2 (PCR) (Negative) 05/07/21 05/07/21 05/07/21 Range/Units 20:35 21:08 21:08 WBC (4.8-10.8) K/uL RBC (4.7-6.1) M/uL Hgb (14.0-18.0) g/dL Hct (42-52) % MCV (80-100) fL MCH (25-34) pg MCHC (32-36) g/dL RDW Std Deviation (36.4-46.3) fL RDW Coeff of Scott (11.5-14.5) % Plt Count (130-400) K/uL MPV (7.4-10.4) fL Immature Gran % (Auto) % Neut % (Auto) % Lymph % (Auto) % Kent % (Auto) % Eos % (Auto) % Baso % (Auto) % Neut # (Auto) (1.4-6.5) K/uL Lymph # (Auto) (1.2-3.4) K/uL Kent # (Auto) (0.11-0.59) K/uL Eos # (Auto) (0-0.5) K/uL Baso # (Auto) (0-0.2) K/uL Immature Gran # (Auto) (0.00-0.02) K/uL Sodium (136-145) mmol/L Potassium (3.5-5.1) mmol/L Chloride (98-107) mmol/L Carbon Dioxide (21-32) mmol/L Anion Gap (3-11) BUN (7-18) mg/dl Creatinine (0.6-1.4) mg/dl Est Cr Clr Drug Dosing ml/min Est GFR ( Amer) ml/min Est GFR (Non-Af Amer) ml/min BUN/Creatinine Ratio (10-20) Glucose (70-99) mg/dl Lactate 0.9 (0.4-2.0) mmol/L Calcium (8.5-10.1) mg/dl Total Bilirubin (0.2-1) mg/dl AST (15-37) U/L ALT (12-78) U/L Alkaline Phosphatase (45-117) U/L Troponin I (0-0.045) ng/ml Total Protein (6.4-8.2) gm/dl Albumin (3.4-5.0) gm/dl Globulin (2.5-4.0) gm/dl Albumin/Globulin Ratio (0.9-2) Procalcitonin (0-0.5) ng/ml Urine Color Urine Appearance (Clear) Urine pH (4.5-7.5) Ur Specific [place] (1.000-1.030) Urine Protein (Negative) Urine Glucose (UA) (Negative) Urine Ketones (Negative) Urine Blood (Negative) Urine Nitrite (Negative) Urine Bilirubin (Negative) Urine Urobilinogen (Negative) Ur Leukocyte Esterase (Negative) Urine WBC (Auto) (0-5) /hpf Urine RBC (Auto) (0-4) /hpf U Hyaline Cast (Auto) (0-5) /lpf U Epithel Cells (Auto) (0-5) /lpf Urine Bacteria (Auto) (Negative) COVID-19 Eval Order Covid19 at [facility] SARS-CoV-2 (PCR) POSITIVE A* (Negative) 05/07/21 Range/Units 21:41 WBC (4.8-10.8) K/uL RBC (4.7-6.1) M/uL Hgb (14.0-18.0) g/dL Hct (42-52) % MCV (80-100) fL MCH (25-34) pg MCHC (32-36) g/dL RDW Std Deviation (36.4-46.3) fL RDW Coeff of Scott (11.5-14.5) % Plt Count (130-400) K/uL MPV (7.4-10.4) fL Immature Gran % (Auto) % Neut % (Auto) % Lymph % (Auto) % Kent % (Auto) % Eos % (Auto) % Baso % (Auto) % Neut # (Auto) (1.4-6.5) K/uL Lymph # (Auto) (1.2-3.4) K/uL Kent # (Auto) (0.11-0.59) K/uL Eos # (Auto) (0-0.5) K/uL Baso # (Auto) (0-0.2) K/uL Immature Gran # (Auto) (0.00-0.02) K/uL Sodium (136-145) mmol/L Potassium (3.5-5.1) mmol/L Chloride (98-107) mmol/L Carbon Dioxide (21-32) mmol/L Anion Gap (3-11) BUN (7-18) mg/dl Creatinine (0.6-1.4) mg/dl Est Cr Clr Drug Dosing ml/min Est GFR ( Amer) ml/min Est GFR (Non-Af Amer) ml/min BUN/Creatinine Ratio (10-20) Glucose (70-99) mg/dl Lactate (0.4-2.0) mmol/L Calcium (8.5-10.1) mg/dl Total Bilirubin (0.2-1) mg/dl AST (15-37) U/L ALT (12-78) U/L Alkaline Phosphatase (45-117) U/L Troponin I (0-0.045) ng/ml Total Protein (6.4-8.2) gm/dl Albumin (3.4-5.0) gm/dl Globulin (2.5-4.0) gm/dl Albumin/Globulin Ratio (0.9-2) Procalcitonin (0-0.5) ng/ml Urine Color Yellow Urine Appearance Clear (Clear) Urine pH 5.0 (4.5-7.5) Ur Specific [place] 1.020 (1.000-1.030) Urine Protein 1+ H (Negative) Urine Glucose (UA) Negative (Negative) Urine Ketones 1+ H (Negative) Urine Blood Negative (Negative) Urine Nitrite Negative (Negative) Urine Bilirubin Negative (Negative) Urine Urobilinogen Negative (Negative) Ur Leukocyte Esterase Negative (Negative) Urine WBC (Auto) 1-5 (0-5) /hpf Urine RBC (Auto) 0-4 (0-4) /hpf U Hyaline Cast (Auto) 1-5 (0-5) /lpf U Epithel Cells (Auto) 5-10 H (0-5) /lpf Urine Bacteria (Auto) Negative (Negative) COVID-19 Eval Order SARS-CoV-2 (PCR) (Negative) Administered Medications Amlodipine Besylate (Amlodipine Besylate 5 Mg Tab) 5 mg PO DAILY MARLA Stop: 06/07/21 08:59 Last Admin: 05/08/21 08:39 Dose: 5 mg Documented by: [id number] Aspirin (Aspirin 81 Mg Ectab) 81 mg PO DAILY MARLA Stop: 06/07/21 08:59 Last Admin: 05/08/21 08:39 Dose: 81 mg Documented by: [id number] Atenolol (Atenolol 50 Mg Tablet) 50 mg PO DAILY MARLA Stop: 06/07/21 08:59 Last Admin: 05/08/21 08:39 Dose: 50 mg Documented by: [id number] Atorvastatin Calcium (Atorvastatin 20 Mg Tab) 20 mg PO DAILY MARLA Stop: 06/07/21 08:59 Last Admin: 05/08/21 08:39 Dose: 20 mg Documented by: [id number] Calcium Carbonate (Calcium Carbonate 500 Mg Chewable Tab) 500 mg PO DAILY MARLA Stop: 06/07/21 08:59 Last Admin: 05/08/21 08:39 Dose: 500 mg Documented by: [id number] Doxazosin Mesylate (Doxazosin Mesylate 4 Mg Tab) 8 mg PO HS MARLA Stop: 06/07/21 20:59 Last Admin: 05/08/21 20:20 Dose: 8 mg Documented by: [id number] Enalapril Maleate (Enalapril Maleate 10 Mg Tab) 40 mg PO DAILY MARLA Stop: 06/07/21 08:59 Last Admin: 05/08/21 08:39 Dose: 40 mg Documented by: [id number] Enoxaparin Sodium (Enoxaparin Inj 40 Mg/0.4 Ml Syr) 40 mg SQ Q24H MARLA Stop: 06/07/21 07:59 Last Admin: 05/08/21 08:38 Dose: 40 mg Documented by: [id number] Finasteride (Finasteride 5 Mg Tab) 5 mg PO DAILY MARLA Stop: 06/07/21 08:59 Last Admin: 05/08/21 08:41 Dose: 5 mg Documented by: [id number] Fluticasone/Vilanterol (Fluticasone/Vilanterol 200/25mcg 14 Puffs/Inhaler) 1 puffs INH DAILY MARLA Stop: 06/07/21 08:59 Last Admin: 05/08/21 08:38 Dose: 1 puffs Documented by: [id number] Furosemide (Furosemide 20 Mg Tab) 20 mg PO DAILY MARLA Stop: 06/07/21 08:59 Last Admin: 05/08/21 08:39 Dose: 20 mg Documented by: [id number] Gabapentin (Gabapentin 400 Mg Cap) 400 mg PO QID MARLA Stop: 06/07/21 08:59 Last Admin: 05/08/21 20:20 Dose: 400 mg Documented by: [id number] Admin: 05/08/21 17:45 Dose: 400 mg Documented by: [id number] Admin: 05/08/21 14:58 Dose: 400 mg Documented by: [id number] Admin: 05/08/21 08:40 Dose: 400 mg Documented by: [id number] Guaifenesin/Codeine Phosphate (Guaifenesin/Codeine 200mg/20mg 10ml Udc) 10 ml PO Q6H PRN PRN Reason: Cough Stop: 06/07/21 17:12 Last Admin: 05/08/21 21:26 Dose: 10 ml Documented by: [id number] Remdesivir 100 mg/ Sodium (Chloride) 250 mls @ 250 mls/hr IV Q24H MARLA; Protocol Stop: 05/11/21 20:59 Last Infusion: 05/08/21 22:26 Dose: 0 mls/hr Documented by: [id number] Admin: 05/08/21 20:18 Dose: 250 mls/hr Documented by: [id number] Dexamethasone 6 mg/ Syringe 1.5 mls @ 1 mls/min IV DAILY MARLA Stop: 05/18/21 08:59 Last Admin: 05/08/21 08:37 Dose: 1 mls/min Documented by: [id number] Insulin Aspart (Insulin Aspart 100 Units/Ml 3 Ml Pen) 0 units SC ACHS MARLA Stop: 06/07/21 07:29 Last Admin: 05/08/21 20:20 Dose: Not Given Documented by: [id number] Admin: 05/08/21 17:45 Dose: Not Given Documented by: [id number] Admin: 05/08/21 12:33 Dose: Not Given Documented by: [id number] Admin: 05/08/21 08:41 Dose: 4 units Documented by: [id number] Cosigned by: [id number] Magnesium Oxide (Magnesium Oxide 400 Mg Tab) 400 mg PO DAILY MARLA Stop: 06/07/21 08:59 Last Admin: 05/08/21 08:39 Dose: 400 mg Documented by: [id number] Multivitamins/Minerals (Cerovite Adv Formula Tab) 1 tab PO QAM MARLA Stop: 06/07/21 08:59 Last Admin: 05/08/21 08:39 Dose: 1 tab Documented by: [id number] Pantoprazole Sodium (Pantoprazole 40 Mg Tab) 40 mg PO BID MARLA Stop: 06/07/21 08:59 Last Admin: 05/08/21 20:19 Dose: 40 mg Documented by: [id number] Admin: 05/08/21 08:40 Dose: 40 mg Documented by: [id number] Potassium Chloride (Potassium Chloride Crtab 20 Meq Tabcr) 20 meq PO TID MARLA Stop: 06/07/21 08:59 Last Admin: 05/08/21 20:18 Dose: 20 meq Documented by: [id number] Admin: 05/08/21 14:58 Dose: 20 meq Documented by: [id number] Admin: 05/08/21 08:41 Dose: 20 meq Documented by: [id number] Sodium Chloride (Sodium Chloride 0.9% 10ml Flush) 30 ml IV Q24H MARLA Stop: 05/12/21 02:14 Last Admin: 05/08/21 04:10 Dose: 30 ml Documented by: [id number] Spironolactone (Spironolactone 25 Mg Tab) 25 mg PO DAILY MARLA Stop: 06/07/21 08:59 Last Admin: 05/08/21 08:40 Dose: 25 mg Documented by: [id number] Zinc Sulfate (Zinc Sulfate 220 Mg Capsule) 220 mg PO DAILY MARLA Stop: 06/07/21 08:59 Last Admin: 05/08/21 08:40 Dose: 220 mg Documented by: [id number] Discontinued Medications Albuterol (Albut/Ipratrop 3mg/0.5mg Neb 3 Ml Vial) 3 ml INH BIDR MARLA Stop: 06/07/21 06:59 Last Admin: 05/08/21 06:05 Dose: 3 ml Documented by: [id number] Dexamethasone Sodium Phosphate (DexamethasonePf 10 Mg/Ml Vial) 6 mg IV NOW ONE Stop: 05/07/21 21:38 Last Admin: 05/07/21 22:21 Dose: 6 mg Documented by: [id number] Sodium Chloride (Nss 1000ml) 1,000 mls @ 125 mls/hr IV .Q8H STA Stop: 05/08/21 04:09 Last Infusion: 05/08/21 04:18 Dose: 0 mls/hr Documented by: [id number] Admin: 05/07/21 20:18 Dose: 125 mls/hr Documented by: [id number] Remdesivir 200 mg/ Sodium (Chloride) 250 mls @ 125 mls/hr IV ONE STA; Protocol Stop: 05/08/21 01:19 Last Infusion: 05/08/21 02:23 Dose: 0 mls/hr Documented by: [id number] Admin: 05/08/21 00:23 Dose: 125 mls/hr Documented by: [id number] Discharge Plan Visit Data Chief Complaint: Fever Stated Complaint: COVID +; FEVER ED Provider: Mirza Vital Discharge Problem: COVID-19, Hypoxia, Nausea, Fever Patient Disposition: Admitted As Inpatient Discharge Instructions Interventions: ED Discharge Assessment Last Done: 05/08/21 00:53
--- NOTE | 2021-05-07 20:43 | XRay Report ---
XR chest 1V portable CLINICAL HISTORY: Fever TECHNIQUE: Single frontal radiograph of the chest was obtained. Comparison: Comparison is made to chest one view 01/06/2013 FINDINGS: Median sternotomy wires are unchanged. Cardiomegaly is noted. Lungs are underinflated but clear. No e vidence of pleural effusion or pneumothorax. IMPRESSION: Stable cardiomegaly. Lungs are underinflated but clear. ACT 112: Negative or not required by law. Electronically signed by: Dayron Luu M.D. 05/07/2021 8:41 PM
[2021-05-07 21:05] LABS: Albumin Level 2.7 gm/dl (3.4-5.0); BUN Creatinine Ratio 13.7 (10-20); Calcium 7.5 mg/dl (8.5-10.1); Creatinine Clr Calc Pharmacy 48.7 ml/min; Est GFR (African American) 65.5 ml/min; Est GFR (Non-African American) 56.5 ml/min; Potassium 3.7 mmol/L (3.5-5.1)
[2021-05-07 21:09] LABS: Albumin Globulin Ratio 0.7 (0.9-2); Bilirubin,Total 0.4 mg/dl (0.2-1); Globulin 3.6 gm/dl (2.5-4.0); Total Protein 6.3 gm/dl (6.4-8.2); Troponin I 0.03 ng/ml (0-0.045)
[2021-05-07] MEDS ORDERED: dexAMETHasone**PF** 10 MG/ML VIAL IV ONE (21:37)
[2021-05-07 22:11] LABS: Appearance Urine Clear (Clear); Bacteria Urine Automated Negative (Negative); Bilirubin Urine Negative (Negative); Blood Urine Negative (Negative); Color Urine Yellow; Glucose Urine UA Negative (Negative); Ketones Urine 1+ (Negative); Leukocyte Esterase Urine Negative (Negative); Nitrite Urine Negative (Negative); Protein Urine 1+ (Negative); RBC Urine Automated 0-4 /hpf (0-4); Urobilinogen Urine Negative (Negative)
[2021-05-07] MEDS ORDERED: REMDESIVIR 200 MG in SODIUM CHLORIDE 0.9% 210 ML IV STA (23:20)
--- NOTE | 2021-05-08 01:54 | History and Physical Report ---
DATE OF ADMISSION: 05/07/2021. CHIEF COMPLAINT: Fever and shortness of breath. HISTORY OF PRESENT ILLNESS: This is an 86-year-old male with past medical history significant for type 2 diabetes, steroid-induced diabetes, chronic kidney disease stage III, hyperlipidemia, chronic respiratory failure with hypoxia on home oxygen 1-1.5 liters , history of tracheobronchitis, history of obstructive sleep apnea, chronic diastolic failure, hypertension, history of PVCs, irritable bowel syndrome, GERD, dysphagia, history of Schatzki ring, Reveles's esophagus without dysplasia, history of adenomatous polyp of transverse colon, history of prostate cancer, BPH, 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, senile osteoporosis, history of bilateral leg edema, generalized osteoarthritis, macular degeneration, spinal stenosis, history of Hodgkin's disease, history of DVT, history of generalized anxiety, who presents with fever and shortness of breath. The patient was diagnosed with COVID on 05/04/2021. The patient received 2 doses of COVID vaccine, [employer] vaccine, in July and second dose on 08/30/2020. Did not take his booster. He is having symptoms for the last 1 week, having cough with some phlegm and fever and shortness of breath. Appetite is down. Denies any chest pain. On home oxygen, generally he is at 1-1.5 liters at home, but currently requiring up to 4 liters. He was 89% on his usual oxygen, currently with 4 liters he is saturating fine and feeling better. He has some headache. Has some runny nose, no earache, no sore throat. Vision is okay. Has nausea and vomited one time yesterday. No abdominal pain, no diarrhea. Normal bowel and bladder movements. Currently, hemodynamics are okay. ALLERGIES: TO PENICILLIN AND OXYCODONE. PAST MEDICAL HISTORY: As mentioned above. PAST SURGICAL HISTORY: Total knee arthroplasty bilateral, bronchoscopy and colonoscopy with biopsy, EGDs, spinal steroid shot, injection of the eye drug, needle punch biopsy of the prostate, cataract surgery, resection of chest tumor. MEDICATIONS: The patient is on amlodipine 5 mg p.o. daily, aspirin 81 mg p.o. daily, atenolol 50 mg p.o. daily, atorvastatin 20 mg p.o. daily, azithromycin 250 mg p.o. daily, last dose tomorrow, benazepril 40 mg p.o. daily, Breo Ellipta one inhalation daily, calcium carbonate 200 mg p.o. daily, diclofenac sodium 4 g topical b.i.d. p.r.n., doxazosin 8 mg p.o. at bedtime, finasteride 5 mg p.o. daily, Flonase 2 sprays intranasal daily p.r.n., furosemide 20 mg p.o. daily, gabapentin 400 mg p.o. q.i.d., DuoNebs 3 mL inhalation b.i.d., leuprolide 45 mg subcutaneous every 6 months, magnesium 250 mg p.o. daily, omeprazole 20 mg p.o. b.i.d., potassium chloride 20 mEq p.o. b.i.d., prednisone 5 mg usually, currently 20 mg p.o. b.i.d., PreserVision 1 tablet p.o. b.i.d., spironolactone 25 mg p.o. daily, zinc gluconate 50 mg p.o. daily. FAMILY HISTORY: Significant for mother has Alzheimer disease, arthritis, bladder cancer, diabetes, hypertension, stroke; father had COPD, hypertension, silicosis, stroke. SOCIAL HISTORY: , no smoking, no alcohol, no drug use. REVIEW OF SYSTEMS: As per HPI. Rest of review of systems is negative. PHYSICAL EXAMINATION: GENERAL: The patient is obese, not in acute distress. VITAL SIGNS: Temperature 37.2, pulse 95, respiratory rate 18, blood pressure 115/74, oxygen currently 96% on 4 liters. HEENT: Pupils equal, round, and reactive to light. Oral mucosa dry. NECK: No JVD or neck masses. CARDIOVASCULAR: S1 and S2 heard. Regular rate and rhythm. No murmur, no gallop. RESPIRATORY SYSTEM: Normal AP diameter. No accessory muscle use. No wheezing, no crackles. ABDOMEN: Soft, bowel sounds present, nontender, no distention. CENTRAL NERVOUS SYSTEM: Cranial nerves II-XII grossly intact, nonfocal. EXTREMITIES: Trace +1 pedal edema present, no erythema seen. LABORATORY DATA: WBC 2.64, hemoglobin 11.7, hematocrit 35.1, platelets 119. Sodium 138, potassium 3.7, chloride 106, bicarb 26, BUN 16, creatinine 1.1, serum glucose 108. Lactate 0.9, calcium 7.5, total bilirubin 0.4, AST 38, ALT 31, alkaline phosphatase 47. Troponin 1 of 0.03. Procalcitonin less than 0.05. Urinalysis negative. SARS-CoV-2 PCR positive. IMAGING DATA: Chest x-ray, stable cardiomegaly. Lungs are underinflated but clear. EKG: Normal sinus rhythm, rate of 90, left axis deviation, left ventricular hypertrophy. ASSESSMENT AND PLAN: This is an 86-year-old male who presents with COVID-19 and hypoxia. 1. COVID-19 and hypoxia: Requiring 4 liters oxygen, home oxygen 1-1.5 liters. The patient's last dose of Pfizer vaccine was on 08/30/2020, did not receive booster. Meets criteria for steroids and remdesivir, which will be given and follow the remdesivir labs. Follow CRP in a.m. Closely monitor in the tele floor. Continue his home nebs and inhalers. 2. History of prostate cancer: Currently on Lupron shots. 3. History of diabetes: Currently not on any medication. Will place him on diabetic diet and follow HbA1c levels and we will place him on insulin sliding scale as the patient is getting IV Decadron. 4. History of chronic diastolic congestive heart failure: Will continue his home diuretics. Monitor for any volume overload. He has mild lower extremity edema. 5. History of hypertension: On atenolol, amlodipine, Cardura, benazepril, and diuretics. Will monitor the blood pressure. 6. History of benign prostatic hypertrophy: On Cardura. 7. History of sleep apnea: On CPAP. 8. History of 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: Chronically on prednisone 5 mg daily. Currently getting Decadron, which will be tapered back to home prednisone when stable. 9. History of tracheobronchitis with chronic respiratory failure: Continue home inhalers and nebs. 10. Hyperlipidemia: On statin. 11. Chronic kidney disease stage III: Presently with a creatinine of 1.1. Will follow the repeat labs. 12. Deep venous thrombosis prophylaxis: We placed him on Lovenox. DISPOSITION: Closely monitor in the tele floor. Level 1 full code as per my discussion with the patient. PT/OT prior to discharge. Social service to help with discharge planning. Job ID: [id number] [facility]
[2021-05-08] MEDS ORDERED: ONDANSETRON INJ 2 MG/ML 2 ML VIAL IV PRN (02:13)
[2021-05-08] MEDS ORDERED: NITROGLYCERIN SL 0.4 MG/TAB TAB SL PRN (02:13)
[2021-05-08] MEDS ORDERED: DICLOFENAC SOD 1% GEL 100 GM TUBE EXT PRN (02:13)
[2021-05-08] MEDS ORDERED: FLUTICASONE PROPIONATE NA SPR 16 GM BTL PRN (02:13)
[2021-05-08] MEDS ORDERED: ACETAMINOPHEN 325 MG TAB PO PRN (02:13)
[2021-05-08] MEDS ORDERED: GLUCOSE 10 TABS/TUBE PO PRN (03:30)
[2021-05-08] MEDS ORDERED: DEXTROSE 50% 50 ML SYRINGE IV PRN (03:30)
[2021-05-08] MEDS ORDERED: GLUCAGON FOR INJ 1 MG VIAL IM PRN (03:30)
[2021-05-08] MEDS ORDERED: GLUCOSE 40% GEL 15 GM TUBE PO PRN (03:30)
[2021-05-08] MEDS ORDERED: CARBOHYDRATES FOR HYPOGLYCEMIA PO PRN (03:30)
[2021-05-08] MEDS: SODIUM CHLORIDE 0.9% 10ML FLUSH IV SCH (04:10)
[2021-05-08] MEDS ORDERED: ALBUT/IPRATROP 3MG/0.5MG NEB 3 ML VIAL NEB PRN (04:55)
[2021-05-08 06:06] LABS: Hematocrit (blood only) 36.7 % (42-52); Hemoglobin 12.2 g/dL (14.0-18.0); Immature Granulocytes # (auto) 0.01 K/uL (0.00-0.02); Immature Granulocytes % (auto) 0.5 %; Lymphocytes # (auto) 0.26 K/uL (1.2-3.4); Lymphocytes % (auto) 11.7 %; Mean Corpuscular Hgb Conc 33.2 g/dL (32-36); Mean Corpuscular Volume 93.4 fL (80-100); Mean Platelet Volume 10.3 fL (7.4-10.4); Monocytes # (auto) 0.14 K/uL (0.11-0.59); Monocytes % (auto) 6.3 %; Neutrophils # (auto) 1.81 K/uL (1.4-6.5); Neutrophils % (auto) 81.5 %; Platelet Count 121 K/uL (130-400); RDW Coefficient of Variation 12.8 % (11.5-14.5); RDW Standard Deviation 44.3 fL (36.4-46.3); Red Blood Count 3.93 M/uL (4.7-6.1); White Blood Count 2.22 K/uL (4.8-10.8)
[2021-05-08 06:27] LABS: Albumin Level 2.6 gm/dl (3.4-5.0); BUN Creatinine Ratio 13.2 (10-20); Bilirubin Direct 0.2 mg/dl (0-0.2); C Reactive Protein 4.67 mg/dl (0-0.29); Calcium 7.3 mg/dl (8.5-10.1); Creatinine Clr Calc Pharmacy 60.4 ml/min; Est GFR (African American) 75.5 ml/min; Est GFR (Non-African American) 65.2 ml/min; Magnesium 1.9 mg/dl (1.8-2.4); Potassium 3.8 mmol/L (3.5-5.1)
[2021-05-08 06:30] LABS: Bilirubin,Total 0.4 mg/dl (0.2-1); Total Protein 6.4 gm/dl (6.4-8.2)
[2021-05-08 06:33] LABS: RBC Morphology Unremarkable
[2021-05-08] MEDS ORDERED: ALBUT/IPRATROP 3MG/0.5MG NEB 3 ML VIAL INH SCH (07:00)
[2021-05-08] MEDS: dexAMETHasone 6 MG in SYRINGE 0 ML IV SCH (08:37)
[2021-05-08] MEDS: ENOXAPARIN INJ 40 MG/0.4 ML SYR SQ SCH (08:38)
[2021-05-08] MEDS: FLUTICASONE/VILANTEROL 200/25MCG 14 PUFFS/INHALER INH SCH (08:38)
[2021-05-08] MEDS: ASPIRIN 81 MG ECTAB PO SCH (08:39)
[2021-05-08] MEDS: ATORVASTATIN 20 MG TAB PO SCH (08:39)
[2021-05-08] MEDS: CALCIUM CARBONATE 500 MG CHEWABLE TAB PO SCH (08:39)
[2021-05-08] MEDS: MAGNESIUM OXIDE 400 MG TAB PO SCH (08:39)
[2021-05-08] MEDS: amLODIPine BESYLATE 5 MG TAB PO SCH (08:39)
[2021-05-08] MEDS: ENALAPRIL MALEATE 10 MG TAB PO SCH (08:39)
[2021-05-08] MEDS: CEROVITE ADV FORMULA TAB PO SCH (08:39)
[2021-05-08] MEDS: ATENOLOL 50 MG TABLET PO SCH (08:39)
[2021-05-08] MEDS: FUROSEMIDE 20 MG TAB PO SCH (08:39)
[2021-05-08] MEDS: SPIRONOLACTONE 25 MG TAB PO SCH (08:40)
[2021-05-08] MEDS: PANTOprazole 40 MG TAB PO SCH ×2 (08:40→20:19)
[2021-05-08] MEDS: GABAPENTIN 400 MG CAP PO SCH ×4 (08:40→20:20)
[2021-05-08] MEDS: ZINC SULFATE 220 MG CAPSULE PO SCH (08:40)
[2021-05-08] MEDS: FINASTERIDE 5 MG TAB PO SCH (08:41)
[2021-05-08] MEDS: INSULIN ASPART 100 UNITS/ML 3 ML PEN SC SCH ×4 (08:41→20:20)
[2021-05-08] MEDS: POTASSIUM CHLORIDE CRTAB 20 MEQ TABCR PO SCH ×3 (08:41→20:18)
[2021-05-08] MEDS ORDERED: FLUTICASONE/VILANTEROL 100/25MCG 14 PUFFS/INHALER INH SCH (09:00)
[2021-05-08] MEDS ORDERED: FLUTICASONE FUROATE 100MCG 14 PUFFS/INHALER INH SCH (09:00)
--- NOTE | 2021-05-08 15:36 | Hospitalist Progress Note ---
Date of Service May 08, 2021 Assessment & Plan (1) COVID-19: Plan: No evidence of pneumonia on chest x-ray but patient is hypoxic, more so than at home. Continue with remdesivir and steroids. He appears euvolemic. Continue to monitor in PCU. (2) Hypoxia: Plan: Increased oxygen needs required, continue plan as above. Continue outpatient diuretics including Lasix and spironolactone. (3) Chronic diastolic heart failure: Plan: Continue Lasix as spironolactone per home regimen. (4) CKD (chronic kidney disease), stage III: Plan: Renal function at baseline, avoid nephrotoxic substances and continue to monitor BMP periodically. (5) Polymyalgia rheumatica: Plan: Chronically on 5 mg of steroids daily which has been held in setting of Decadron administration. Will need to ensure prednisone is restarted at baseline dose when Decadron course has completed. (6) Hypertension: Plan: Around goal, continue home medications including amlodipine, atenolol, ANISHA inhibitor, furosemide, spironolactone (7) Diabetes mellitus: Plan: Basal bolus insulin, at inpatient goal. (8) Sleep apnea: Plan: CPAP nightly (9) DVT prophylaxis: Plan: Lovenox Full code [facility] Admission and Anticipated Discharge Date Admission Date: May 07, 2021 Subjective 86-year-old diabetic man vaccinated with 2 doses of the Covid vaccine presented with 1 week of productive cough, fever and shortness of breath. He reported low appetite with no chest pain and some early onset diarrhea that is resolved. All symptoms are improved generally since he was admitted. He is typically on 1 to 1-1/2 L oxygen at home but is now requiring up to 4 L/min. He is overall doing well. Review of Systems Review of Systems: All systems reviewed and negative except as indicated in subjective above. Physical Exam Physical Exam: CONSTITUTIONAL: obese, vitals as above, generally well- appearing, NAD EYES: normal conjunctivae, no scleral icterus ENT: external ear and nose normal, MMM NECK: trachea midline RESPIRATORY: Coarse crackles in right base, otherwise clear to auscultation without wheezes or rales. Normal respiratory effort on 5 L/min of oxygen supplementation. CARDIOVASCULAR: regular rate and rhythm, S1 and 2 heard without murmurs, gallops or rubs, no JVD, no peripheral edema GASTROINTESTINAL: soft, nontender, ND, no guarding MUSCULOSKELETAL: strength 5/5 throughout, head is normocephalic and atraumatic SKIN: warm and dry NEUROLOGIC: CN 2-12 grossly intact, normal cognition, normal speech, no tremor, no gross focal deficits. PSYCHIATRIC: alert cooperative and oriented to person, place and time. Results & Data Results & Data ([facility]) Vital Signs (Past 12 Hours) Vital Signs Temp Pulse Pulse Pulse Resp BP Pulse Ox 05/08/21 12:00 37 C 68 24 130/62 93 05/08/21 08:00 92 H 05/08/21 07:08 37.3 C 95 H 24 162/89 H 93 05/08/21 06:05 94 H 22 93 Laboratory Results Short CBC 05/07/21 05/08/21 Range/Units 20:21 05:33 WBC 2.64 L 2.22 L (4.8-10.8) K/uL Hgb 11.7 L 12.2 L (14.0-18.0) g/dL Hct 35.1 L 36.7 L (42-52) % Plt Count 119 L 121 L (130-400) K/uL BMP 05/07/21 05/08/21 20:21 05:33 Sodium 138 139 Potassium 3.7 3.8 Chloride 106 107 Carbon Dioxide 26 26 BUN 16 14 Creatinine 1.17 1.04 Glucose 108 H 143 H Calcium 7.5 L 7.3 L Cardiac Enzymes 05/07/21 Range/Units 20:21 Troponin I 0.030 (0-0.045) ng/ml Liver Function 05/07/21 05/08/21 Range/Units 20:21 05:33 Total Bilirubin 0.4 0.4 (0.2-1) mg/dl Direct Bilirubin 0.2 (0-0.2) mg/dl AST 38 H 37 (15-37) U/L ALT 31 32 (12-78) U/L Alkaline Phosphatase 47 45 (45-117) U/L Albumin 2.7 L 2.6 L (3.4-5.0) gm/dl Urine 05/07/21 Range/Units 21:41 Urine Color Yellow Urine Appearance Clear (Clear) Urine pH 5.0 (4.5-7.5) Ur Specific Diller 1.020 (1.000-1.030) Urine Protein 1+ H (Negative) Urine Glucose (UA) Negative (Negative) Medications Administered Current Inpatient Medications Acetaminophen (Acetaminophen 325 Mg Tab) 650 mg PO Q4H PRN PRN Reason: Pain or Fever Stop: 06/07/21 02:12 Albuterol (Albut/Ipratrop 3mg/0.5mg Neb 3 Ml Vial) 3 ml INH BIDR MARLA Stop: 06/07/21 06:59 Last Admin: 05/08/21 06:05 Dose: 3 ml Documented by: Albuterol (Albut/Ipratrop 3mg/0.5mg Neb 3 Ml Vial) 3 ml NEB Q2H PRN PRN Reason: Shortness Of Breath Or Wheezing Stop: 06/07/21 04:59 Amlodipine Besylate (Amlodipine Besylate 5 Mg Tab) 5 mg PO DAILY MARLA Stop: 06/07/21 08:59 Last Admin: 05/08/21 08:39 Dose: 5 mg Documented by: Aspirin (Aspirin 81 Mg Ectab) 81 mg PO DAILY MARLA Stop: 06/07/21 08:59 Last Admin: 05/08/21 08:39 Dose: 81 mg Documented by: Atenolol (Atenolol 50 Mg Tablet) 50 mg PO DAILY MARLA Stop: 06/07/21 08:59 Last Admin: 05/08/21 08:39 Dose: 50 mg Documented by: Atorvastatin Calcium (Atorvastatin 20 Mg Tab) 20 mg PO DAILY MARLA Stop: 06/07/21 08:59 Last Admin: 05/08/21 08:39 Dose: 20 mg Documented by: Calcium Carbonate (Calcium Carbonate 500 Mg Chewable Tab) 500 mg PO DAILY MARLA Stop: 06/07/21 08:59 Last Admin: 05/08/21 08:39 Dose: 500 mg Documented by: Dextrose (Dextrose 50% 50 Ml Syringe) 25 - 50 ml IV UD PRN; Protocol PRN Reason: Hypoglycemia Protocol Stop: 06/07/21 03:29 Diclofenac Sodium (Diclofenac Sod 1% Gel 100 Gm Tube) 4 gm EXT BID PRN PRN Reason: Pain Stop: 06/07/21 02:12 Doxazosin Mesylate (Doxazosin Mesylate 4 Mg Tab) 8 mg PO HS MARLA Stop: 06/07/21 20:59 Enalapril Maleate (Enalapril Maleate 10 Mg Tab) 40 mg PO DAILY MARLA Stop: 06/07/21 08:59 Last Admin: 05/08/21 08:39 Dose: 40 mg Documented by: Enoxaparin Sodium (Enoxaparin Inj 40 Mg/0.4 Ml Syr) 40 mg SQ Q24H MARLA Stop: 06/07/21 07:59 Last Admin: 05/08/21 08:38 Dose: 40 mg Documented by: Finasteride (Finasteride 5 Mg Tab) 5 mg PO DAILY MARLA Stop: 06/07/21 08:59 Last Admin: 05/08/21 08:41 Dose: 5 mg Documented by: Fluticasone Propionate (Fluticasone Propionate Na Spr 16 Gm Btl) 2 sprays NA DAILY PRN PRN Reason: Allergy Symptoms Stop: 06/07/21 02:12 Fluticasone/Vilanterol (Fluticasone/Vilanterol 200/25mcg 14 Puffs/Inhaler) 1 puffs INH DAILY MARLA Stop: 06/07/21 08:59 Last Admin: 05/08/21 08:38 Dose: 1 puffs Documented by: Furosemide (Furosemide 20 Mg Tab) 20 mg PO DAILY MARLA Stop: 06/07/21 08:59 Last Admin: 05/08/21 08:39 Dose: 20 mg Documented by: Gabapentin (Gabapentin 400 Mg Cap) 400 mg PO QID MARLA Stop: 06/07/21 08:59 Last Admin: 05/08/21 14:58 Dose: 400 mg Documented by: Glucagon (Glucagon For Inj 1 Mg Vial) 1 mg IM UD PRN; Protocol PRN Reason: Hypoglycemia Protocol Stop: 06/07/21 03:29 Glucose (Glucose 40% Gel 15 Gm Tube) 15 - 30 gm PO UD PRN; Protocol PRN Reason: Hypoglycemia Protocol Stop: 06/07/21 03:29 Glucose (Glucose 10 Tabs/Tube) 4 - 8 tabs PO UD PRN; Protocol PRN Reason: Hypoglycemia Protocol Stop: 06/07/21 03:29 Remdesivir 100 mg/ Sodium (Chloride) 250 mls @ 250 mls/hr IV Q24H MARLA; Protocol Stop: 05/11/21 20:59 Dexamethasone 6 mg/ Syringe 1.5 mls @ 1 mls/min IV DAILY MARLA Stop: 05/18/21 08:59 Last Admin: 05/08/21 08:37 Dose: 1 mls/min Documented by: Insulin Aspart (Insulin Aspart 100 Units/Ml 3 Ml Pen) 0 units SC ACHS [facility] Stop: 06/07/21 07:29 Last Admin: 05/08/21 12:33 Dose: Not Given Documented by: Magnesium Oxide (Magnesium Oxide 400 Mg Tab) 400 mg PO DAILY MARLA Stop: 06/07/21 08:59 Last Admin: 05/08/21 08:39 Dose: 400 mg Documented by: Miscellaneous (Carbohydrates For Hypoglycemia ) 15 - 30 gm PO UD PRN PRN Reason: Hypoglycemia Treatment Stop: 06/07/21 03:29 Multivitamins/Minerals (Cerovite Adv Formula Tab) 1 tab PO QAM MARLA Stop: 06/07/21 08:59 Last Admin: 05/08/21 08:39 Dose: 1 tab Documented by: Nitroglycerin (Nitroglycerin Sl 0.4 Mg/Tab Tab) 0.4 mg SL UD PRN PRN Reason: Chest Pain Stop: 06/07/21 02:12 Ondansetron HCl (Ondansetron Inj 2 Mg/Ml 2 Ml Vial) 4 mg IV Q6H PRN PRN Reason: Nausea Stop: 06/07/21 02:12 Pantoprazole Sodium (Pantoprazole 40 Mg Tab) 40 mg PO BID [facility] Stop: 06/07/21 08:59 Last Admin: 05/08/21 08:40 Dose: 40 mg Documented by: Potassium Chloride (Potassium Chloride Crtab 20 Meq Tabcr) 20 meq PO TID MARLA Stop: 06/07/21 08:59 Last Admin: 05/08/21 14:58 Dose: 20 meq Documented by: Sodium Chloride (Sodium Chloride 0.9% 10ml Flush) 30 ml IV Q24H MARLA Stop: 05/12/21 02:14 Last Admin: 05/08/21 04:10 Dose: 30 ml Documented by: Spironolactone (Spironolactone 25 Mg Tab) 25 mg PO DAILY MARLA Stop: 06/07/21 08:59 Last Admin: 05/08/21 08:40 Dose: 25 mg Documented by: Zinc Sulfate (Zinc Sulfate 220 Mg Capsule) 220 mg PO DAILY MARLA Stop: 06/07/21 08:59 Last Admin: 05/08/21 08:40 Dose: 220 mg Documented by:
[2021-05-08] MEDS ORDERED: BENZONATATE 100 MG CAPSULE PO PRN (17:13)
[2021-05-08] MEDS: REMDESIVIR 100 MG in SODIUM CHLORIDE 0.9% 230 ML IV SCH (20:18)
[2021-05-08] MEDS: DOXAZosin MESYLATE 4 MG TAB PO SCH (20:20)
[2021-05-09] MEDS: SODIUM CHLORIDE 0.9% 10ML FLUSH IV SCH (03:00)
[2021-05-09 06:15] LABS: Hematocrit (blood only) 36.1 % (42-52); Mean Corpuscular Hemoglobin 30.8 pg (25-34); Mean Corpuscular Hgb Conc 33.2 g/dL (32-36); Mean Corpuscular Volume 92.8 fL (80-100); Mean Platelet Volume 10.4 fL (7.4-10.4); Platelet Count 132 K/uL (130-400); RDW Standard Deviation 44.3 fL (36.4-46.3); Red Blood Count 3.89 M/uL (4.7-6.1); White Blood Count 4.26 K/uL (4.8-10.8)
--- NOTE | 2021-05-09 06:44 | Electrocardiogram Report ---
Test Reason : Blood Pressure : / mmHG Vent. Rate : 090 BPM Atrial Rate : 090 BPM P-R Int : 174 ms QRS Dur : 118 ms QT Int : 370 ms P-R-T Axes : 013 -45 053 degrees QTc Int : 452 ms Normal sinus rhythm Left axis deviation Left ventricular hypertrophy with QRS widening Abnormal ECG When compared with ECG of 05-JAN-2013 06:09, Questionable change in QRS duration Confirmed by Ramiro Abel ([id number]) on 05/09/2021 6:43:45 AM Referred By: Mirza Mcgee Confirmed By:Ramiro Abel
[2021-05-09 06:45] LABS: BUN Creatinine Ratio 21.5 (10-20); Calcium 7.7 mg/dl (8.5-10.1); Creatinine Clr Calc Pharmacy 55.1 ml/min; Est GFR (African American) 68.3 ml/min; Est GFR (Non-African American) 58.9 ml/min; Magnesium 2.3 mg/dl (1.8-2.4); Potassium 4.2 mmol/L (3.5-5.1)
[2021-05-09 06:55] LABS: C Reactive Protein 3.14 mg/dl (0-0.29)
[2021-05-09] MEDS: INSULIN ASPART 100 UNITS/ML 3 ML PEN SC SCH ×4 (08:31→21:22)
[2021-05-09] MEDS: dexAMETHasone 6 MG in SYRINGE 0 ML IV SCH (09:02)
[2021-05-09] MEDS: MAGNESIUM OXIDE 400 MG TAB PO SCH (09:03)
[2021-05-09] MEDS: ATENOLOL 50 MG TABLET PO SCH (09:03)
[2021-05-09] MEDS: GABAPENTIN 400 MG CAP PO SCH ×4 (09:03→21:20)
[2021-05-09] MEDS: FINASTERIDE 5 MG TAB PO SCH (09:03)
[2021-05-09] MEDS: ASPIRIN 81 MG ECTAB PO SCH (09:04)
[2021-05-09] MEDS: POTASSIUM CHLORIDE CRTAB 20 MEQ TABCR PO SCH ×3 (09:04→21:20)
[2021-05-09] MEDS: ENOXAPARIN INJ 40 MG/0.4 ML SYR SQ SCH (09:04)
[2021-05-09] MEDS: ATORVASTATIN 20 MG TAB PO SCH (09:04)
[2021-05-09] MEDS: FUROSEMIDE 20 MG TAB PO SCH (09:05)
[2021-05-09] MEDS: PANTOprazole 40 MG TAB PO SCH ×2 (09:05→21:20)
[2021-05-09] MEDS: FLUTICASONE/VILANTEROL 200/25MCG 14 PUFFS/INHALER INH SCH (09:05)
[2021-05-09] MEDS: CEROVITE ADV FORMULA TAB PO SCH (09:05)
[2021-05-09] MEDS: ZINC SULFATE 220 MG CAPSULE PO SCH (09:05)
[2021-05-09] MEDS: amLODIPine BESYLATE 5 MG TAB PO SCH (09:05)
[2021-05-09] MEDS: SPIRONOLACTONE 25 MG TAB PO SCH (09:05)
[2021-05-09] MEDS: CALCIUM CARBONATE 500 MG CHEWABLE TAB PO SCH (09:05)
[2021-05-09] MEDS: ENALAPRIL MALEATE 10 MG TAB PO SCH (09:05)
--- NOTE | 2021-05-09 14:50 | Hospitalist Progress Note ---
Date of Service May 09, 2021 Assessment & Plan (1) COVID-19: Plan: No evidence of pneumonia on chest x-ray but patient is hypoxic, more so than at home. Continue with remdesivir and steroids. He appears euvolemic. Continue to monitor in PCU. (2) Hypoxia: Plan: Increased oxygen needs required, continue plan as above. Continue outpatient diuretics including Lasix and spironolactone. (3) Gross hematuria: Plan: Occurred after khan placement and Lovenox. Anticoagulation was held and Urology consulted. Possibly secondary to khan trauma. Pt does report some mild irritation with the catheter when he tries to move. This was originally placed out of concern for desaturation events with movement to the bathroom, (4) Chronic diastolic heart failure: Plan: Continue Lasix as spironolactone per home regimen. (5) CKD (chronic kidney disease), stage III: Plan: Renal function at baseline, avoid nephrotoxic substances and continue to monitor BMP periodically. (6) Polymyalgia rheumatica: Plan: Chronically on 5 mg of steroids daily which has been held in setting of Decadron administration. Will need to ensure prednisone is restarted at baseline dose when Decadron course has completed. (7) Hypertension: Plan: Around goal, continue home medications including amlodipine, atenolol, ANISHA inhibitor, furosemide, spironolactone (8) Diabetes mellitus: Plan: Basal bolus insulin, at inpatient goal. (9) Sleep apnea: Plan: CPAP nightly (10) DVT prophylaxis: Plan: SCDs, holding with hematuria. Full code [facility]ist Admission and Anticipated Discharge Date Admission Date: May 07, 2021 Subjective 86-year-old diabetic man vaccinated with 2 doses of the Covid vaccine presented with 1 week of productive cough, fever and shortness of breath. He reported low appetite with no chest pain and some early onset diarrhea that is resolved. All symptoms are improved generally since he was admitted. He is typically on 1 to 1-1/2 L oxygen at home but is now requiring up to 4 L/min. He continues to do well and report feeling better +cough persists gross hematuria after khan placement last night-Urology consulted, Lovenox held. Review of Systems Review of Systems: All systems reviewed and negative except as indicated in subjective above. Physical Exam Physical Exam: CONSTITUTIONAL: obese, vitals as above, generally well- appearing, NAD EYES: normal conjunctivae, no scleral icterus ENT: external ear and nose normal, MMM NECK: trachea midline RESPIRATORY: Coarse crackles in right base, otherwise clear to auscultation without wheezes or rales. Normal respiratory effort on oxygen supplementation. CARDIOVASCULAR: regular rate and rhythm, S1 and 2 heard without murmurs, gall ops or rubs, no JVD, no peripheral edema GASTROINTESTINAL: soft, nontender, ND, no guarding MUSCULOSKELETAL: strength 5/5 throughout, head is normocephalic and atraumatic SKIN: warm and dry NEUROLOGIC: CN 2-12 grossly intact, normal cognition, normal speech, no tremor, no gross focal deficits. PSYCHIATRIC: alert cooperative and oriented to person, place and time. Results & Data Results & Data ([facility]) Vital Signs (Past 12 Hours) Vital Signs Temp Pulse Pulse Resp BP Pulse Ox 05/09/21 12:15 36.5 C 67 20 105/66 95 05/09/21 08:12 36.4 C L 74 17 116/72 92 05/09/21 07:00 69 05/09/21 04:15 92 05/09/21 03:44 36.4 C L 77 26 H 134/71 95 Laboratory Results Short CBC 05/09/21 Range/Units 05:52 WBC 4.26 L (4.8-10.8) K/uL Hgb 12.0 L (14.0-18.0) g/dL Hct 36.1 L (42-52) % Plt Count 132 (130-400) K/uL BMP 05/09/21 05:52 Sodium 140 Potassium 4.2 Chloride 108 H Carbon Dioxide 27 BUN 24 H D Creatinine 1.13 Glucose 124 H Calcium 7.7 L Liver Function 05/09/21 Range/Units 05:52 AST 40 H (15-37) U/L ALT 32 (12-78) U/L Medications Administered Current Inpatient Medications Acetaminophen (Acetaminophen 325 Mg Tab) 650 mg PO Q4H PRN PRN Reason: Pain or Fever Stop: 06/07/21 02:12 Albuterol (Albut/Ipratrop 3mg/0.5mg Neb 3 Ml Vial) 3 ml NEB Q2H PRN PRN Reason: Shortness Of Breath Or Wheezing Stop: 06/07/21 04:59 Amlodipine Besylate (Amlodipine Besylate 5 Mg Tab) 5 mg PO DAILY MARLA Stop: 06/07/21 08:59 Last Admin: 05/09/21 09:05 Dose: 5 mg Documented by: Aspirin (Aspirin 81 Mg Ectab) 81 mg PO DAILY MARLA Stop: 06/07/21 08:59 Last Admin: 05/09/21 09:04 Dose: 81 mg Documented by: Atenolol (Atenolol 50 Mg Tablet) 50 mg PO DAILY MARLA Stop: 06/07/21 08:59 Last Admin: 05/09/21 09:03 Dose: 50 mg Documented by: Atorvastatin Calcium (Atorvastatin 20 Mg Tab) 20 mg PO DAILY MARLA Stop: 06/07/21 08:59 Last Admin: 05/09/21 09:04 Dose: 20 mg Documented by: Benzonatate (Benzonatate 100 Mg Capsule) 100 mg PO TID PRN PRN Reason: cough Stop: 06/07/21 20:59 Calcium Carbonate (Calcium Carbonate 500 Mg Chewable Tab) 500 mg PO DAILY MARLA Stop: 06/07/21 08:59 Last Admin: 05/09/21 09:05 Dose: 500 mg Documented by: Dextrose (Dextrose 50% 50 Ml Syringe) 25 - 50 ml IV UD PRN; Protocol PRN Reason: Hypoglycemia Protocol Stop: 06/07/21 03:29 Diclofenac Sodium (Diclofenac Sod 1% Gel 100 Gm Tube) 4 gm EXT BID PRN PRN Reason: Pain Stop: 06/07/21 02:12 Doxazosin Mesylate (Doxazosin Mesylate 4 Mg Tab) 8 mg PO HS MARLA Stop: 06/07/21 20:59 Last Admin: 05/08/21 20:20 Dose: 8 mg Documented by: Enalapril Maleate (Enalapril Maleate 10 Mg Tab) 40 mg PO DAILY MARLA Stop: 06/07/21 08:59 Last Admin: 05/09/21 09:05 Dose: 40 mg Documented by: Enoxaparin Sodium (Enoxaparin Inj 40 Mg/0.4 Ml Syr) 40 mg SQ Q24H MARLA Stop: 06/07/21 07:59 Last Admin: 05/09/21 09:04 Dose: 40 mg Documented by: Finasteride (Finasteride 5 Mg Tab) 5 mg PO DAILY MARLA Stop: 06/07/21 08:59 Last Admin: 05/09/21 09:03 Dose: 5 mg Documented by: Fluticasone Propionate (Fluticasone Propionate Na Spr 16 Gm Btl) 2 sprays NA DAILY PRN PRN Reason: Allergy Symptoms Stop: 06/07/21 02:12 Fluticasone/Vilanterol (Fluticasone/Vilanterol 200/25mcg 14 Puffs/Inhaler) 1 puffs INH DAILY MARLA Stop: 06/07/21 08:59 Last Admin: 05/09/21 09:05 Dose: 1 puffs Documented by: Furosemide (Furosemide 20 Mg Tab) 20 mg PO DAILY MARLA Stop: 06/07/21 08:59 Last Admin: 05/09/21 09:05 Dose: 20 mg Documented by: Gabapentin (Gabapentin 400 Mg Cap) 400 mg PO QID MARLA Stop: 06/07/21 08:59 Last Admin: 05/09/21 14:27 Dose: 400 mg Documented by: Glucagon (Glucagon For Inj 1 Mg Vial) 1 mg IM UD PRN; Protocol PRN Reason: Hypoglycemia Protocol Stop: 06/07/21 03:29 Glucose (Glucose 40% Gel 15 Gm Tube) 15 - 30 gm PO UD PRN; Protocol PRN Reason: Hypoglycemia Protocol Stop: 06/07/21 03:29 Glucose (Glucose 10 Tabs/Tube) 4 - 8 tabs PO UD PRN; Protocol PRN Reason: Hypoglycemia Protocol Stop: 06/07/21 03:29 Guaifenesin/Codeine Phosphate (Guaifenesin/Codeine 200mg/20mg 10ml Udc) 10 ml PO Q6H PRN PRN Reason: Cough Stop: 06/07/21 17:12 Last Admin: 05/08/21 21:26 Dose: 10 ml Documented by: Remdesivir 100 mg/ Sodium (Chloride) 250 mls @ 250 mls/hr IV Q24H MARLA; Protocol Stop: 05/11/21 20:59 Last Infusion: 05/08/21 22:26 Dose: Infused Documented by: Dexamethasone 6 mg/ Syringe 1.5 mls @ 1 mls/min IV DAILY MARLA Stop: 05/18/21 08:59 Last Admin: 05/09/21 09:02 Dose: 1 mls/min Documented by: Insulin Aspart (Insulin Aspart 100 Units/Ml 3 Ml Pen) 0 units SC ACHS MARLA Stop: 06/07/21 07:29 Last Admin: 05/09/21 12:07 Dose: Not Given Documented by: Magnesium Oxide (Magnesium Oxide 400 Mg Tab) 400 mg PO DAILY MARLA Stop: 06/07/21 08:59 Last Admin: 05/09/21 09:03 Dose: 400 mg Documented by: Miscellaneous (Carbohydrates For Hypoglycemia ) 15 - 30 gm PO UD PRN PRN Reason: Hypoglycemia Treatment Stop: 06/07/21 03:29 Multivitamins/Minerals (Cerovite Adv Formula Tab) 1 tab PO QAM MARLA Stop: 06/07/21 08:59 Last Admin: 05/09/21 09:05 Dose: 1 tab Documented by: Nitroglycerin (Nitroglycerin Sl 0.4 Mg/Tab Tab) 0.4 mg SL UD PRN PRN Reason: Chest Pain Stop: 06/07/21 02:12 Ondansetron HCl (Ondansetron Inj 2 Mg/Ml 2 Ml Vial) 4 mg IV Q6H PRN PRN Reason: Nausea Stop: 06/07/21 02:12 Pantoprazole Sodium (Pantoprazole 40 Mg Tab) 40 mg PO BID [facility]LA Stop: 06/07/21 08:59 Last Admin: 05/09/21 09:05 Dose: 40 mg Documented by: Potassium Chloride (Potassium Chloride Crtab 20 Meq Tabcr) 20 meq PO TID MARLA Stop: 06/07/21 08:59 Last Admin: 05/09/21 14:27 Dose: 20 meq Documented by: Sodium Chloride (Sodium Chloride 0.9% 10ml Flush) 30 ml IV Q24H MARLA Stop: 05/12/21 02:14 Last Admin: 05/09/21 03:00 Dose: 30 ml Documented by: Spironolactone (Spironolactone 25 Mg Tab) 25 mg PO DAILY MARLA Stop: 06/07/21 08:59 Last Admin: 05/09/21 09:05 Dose: 25 mg Documented by: Zinc Sulfate (Zinc Sulfate 220 Mg Capsule) 220 mg PO DAILY MARLA Stop: 06/07/21 08:59 Last Admin: 05/09/21 09:05 Dose: 220 mg Documented by:
[2021-05-09] MEDS: REMDESIVIR 100 MG in SODIUM CHLORIDE 0.9% 230 ML IV SCH (21:17)
[2021-05-09] MEDS: DOXAZosin MESYLATE 4 MG TAB PO SCH (21:20)
[2021-05-10] MEDS: SODIUM CHLORIDE 0.9% 10ML FLUSH IV SCH ×2 (00:56→23:00)
[2021-05-10 06:45] LABS: Estimated Average Glucose 131 mg/dl; Hemoglobin A1C 6.2 % (4.5-5.6)
[2021-05-10 07:16] LABS: Hematocrit (blood only) 37.2 % (42-52); Hemoglobin 12.3 g/dL (14.0-18.0); Mean Corpuscular Hemoglobin 30.9 pg (25-34); Mean Corpuscular Hgb Conc 33.1 g/dL (32-36); Mean Corpuscular Volume 93.5 fL (80-100); Mean Platelet Volume 10.5 fL (7.4-10.4); Platelet Count 153 K/uL (130-400); RDW Standard Deviation 44.7 fL (36.4-46.3); Red Blood Count 3.98 M/uL (4.7-6.1); White Blood Count 4.97 K/uL (4.8-10.8)
[2021-05-10 07:35] LABS: BUN Creatinine Ratio 25.1 (10-20); Calcium 7.6 mg/dl (8.5-10.1); Creatinine Clr Calc Pharmacy 57.3 ml/min; Est GFR (African American) 71.4 ml/min; Est GFR (Non-African American) 61.6 ml/min
[2021-05-10] MEDS: PANTOprazole 40 MG TAB PO SCH ×2 (08:29→21:48)
[2021-05-10] MEDS: POTASSIUM CHLORIDE CRTAB 20 MEQ TABCR PO SCH ×3 (08:29→21:48)
[2021-05-10] MEDS: GABAPENTIN 400 MG CAP PO SCH ×4 (08:29→21:47)
[2021-05-10] MEDS: dexAMETHasone 6 MG in SYRINGE 0 ML IV SCH (08:29)
[2021-05-10] MEDS: MAGNESIUM OXIDE 400 MG TAB PO SCH (08:30)
[2021-05-10] MEDS: SPIRONOLACTONE 25 MG TAB PO SCH (08:30)
[2021-05-10] MEDS: ZINC SULFATE 220 MG CAPSULE PO SCH (08:30)
[2021-05-10] MEDS: ATENOLOL 50 MG TABLET PO SCH (08:30)
[2021-05-10] MEDS: CALCIUM CARBONATE 500 MG CHEWABLE TAB PO SCH (08:30)
[2021-05-10] MEDS: FINASTERIDE 5 MG TAB PO SCH (08:30)
[2021-05-10] MEDS: CEROVITE ADV FORMULA TAB PO SCH (08:30)
[2021-05-10] MEDS: ENALAPRIL MALEATE 10 MG TAB PO SCH (08:30)
[2021-05-10] MEDS: ASPIRIN 81 MG ECTAB PO SCH (08:31)
[2021-05-10] MEDS: amLODIPine BESYLATE 5 MG TAB PO SCH (08:31)
[2021-05-10] MEDS: FUROSEMIDE 20 MG TAB PO SCH (08:31)
[2021-05-10] MEDS: FLUTICASONE/VILANTEROL 200/25MCG 14 PUFFS/INHALER INH SCH (08:31)
[2021-05-10] MEDS: ATORVASTATIN 20 MG TAB PO SCH (08:31)
[2021-05-10] MEDS: INSULIN ASPART 100 UNITS/ML 3 ML PEN SC SCH ×4 (10:14→21:30)
--- NOTE | 2021-05-10 15:07 | Communication Note ---
Date of Service: May 10, 2021 Consult placed for urology service secondary to gross hematuria post Pena catheter insertion. Patient was admitted on 05/07/21 for fever and hypoxia secondary to COVID-19 infection. Per notes, Pena catheter was placed secondary to desaturation events with movement to the bathroom. ER and inpatient records reviewed in detail. Urinalysis on admission was negative for blood, microscopy showed 0-4 RBC, and otherwise was not indicative of infection. Patient is afebrile. His creatinine and white count are within normal limits and his hemogl obin has remained stable. No imaging available for review. In discussion with nursing, patient remains with Pena catheter intact and draining appropriately. RN reports that urine is clearing today. Per RN, urine appears pink colored in bag, but urine in tubing is now clear yellow. Plan: 86 year-old male patient admitted with COVID-19 infection. - Consult performed via chart review secondary to COVID-19 infection. - Plan of care reviewed with Dr. Briones, urologist reservationist. - Urine now clearing per discussion with nursing. - Hematuria likely secondary to Pena catheter trauma in the setting of anticoagulants. Urinalysis on admission negative for blood. - He is hemodynamically stable. No acute intervention indicated at this time. - Maintain Pena catheter at this time and continue to monitor. - Defer Lovenox management to primary team. - Will check PSA given prostate cancer history, on Lupron per hospitalist notes. - Can attempt voiding trial when medically stable prior to discharge. - Will arrange outpatient follow-up with our urology service or his established urologist for possible hematuria work-up and voiding trial if Pena remains in place upon discharge. - Urology will sign off at this time. Please contact us with any additional questions/concerns or acute changes in patient status.
--- NOTE | 2021-05-10 15:10 | Hospitalist Progress Note ---
Date of Service May 10, 2021 Assessment & Plan (1) COVID-19: Plan: No evidence of pneumonia on chest x-ray but patient is hypoxic, more so than at home. Continue with remdesivir and steroids. He appears euvolemic. Continue to monitor in PCU. (2) Hypoxia: Plan: Increased oxygen needs required, continue plan as above. Continue outpatient diuretics including Lasix and spironolactone. (3) Gross hematuria: Plan: Occurred after khan placement and Lovenox. Anticoagulation was held and Urology consulted. Possibly secondary to khan trauma. This was originally placed out of concern for desaturation events with movement to the bathroom. Urology consulted and he hasn't seen him yet. Gross hematuria has now resolved. (4) Chronic diastolic heart failure: Plan: Continue Lasix as spironolactone per home regimen. (5) CKD (chronic kidney disease), stage III: Plan: Renal function at baseline, avoid nephrotoxic substances and continue to monitor BMP periodically. (6) Polymyalgia rheumatica: Plan: Chronically on 5 mg of steroids daily which has been held in setting of Decadron administration. Will need to ensure prednisone is restarted at baseline dose when Decadron course has completed. (7) Hypertension: Plan: Around goal, continue home medications including amlodipine, atenolol, ANISHA inhibitor, furosemide, spironolactone (8) Diabetes mellitus: Plan: Basal bolus insulin, at inpatient goal. (9) Sleep apnea: Plan: CPAP nightly (10) DVT prophylaxis: Plan: with resolution of hematuria and high risk of VTE in setting of COVID illness will restart Lovenox now. Full code Disposition-PCU DO Jhonny Hidalgo Hospitalist Admission and Anticipated Discharge Date Admission Date: May 07, 2021 Subjective 86-year-old diabetic man vaccinated with 2 doses of the Covid vaccine presented with 1 week of productive cough, fever and shortness of breath. appetite has improved reports some misunderstanding of the program-we reviewed it feels his LE swelling has improved denied fevers, chills, or chest pain no other system gross hematuria has resolved. Review of Systems Review of Systems: All systems reviewed and negative except as indicated in subjective above. Physical Exam Physical Exam: CONSTITUTIONAL: obese, vitals as above, generally well- appearing, NAD EYES: normal conjunctivae, no scleral icterus ENT: external ear and nose normal, MMM NECK: trachea midline RESPIRATORY: Coarse crackles in right base and RUL, otherwise clear to auscultation without wheezes or rales. Normal respiratory effort on oxygen supplementation. CARDIOVASCULAR: regular rate and rhythm, S1 and 2 heard without murmurs, gallops or rubs, no JVD, trace peripheral edema bilaterally. GASTROINTESTINAL: soft, nontender, ND, no guarding MUSCULOSKELETAL: strength 5/5 throughout, head is normocephalic and atraumatic SKIN: warm and dry NEUROLOGIC: CN 2-12 grossly intact, normal cognition, normal speech, no tremor, no gross focal deficits. PSYCHIATRIC: alert cooperative and oriented to person, place and time. Results & Data Results & Data ([facility]) Vital Signs (Past 12 Hours) Vital Signs Temp Pulse Pulse Resp BP Pulse Ox Pulse Ox 05/10/21 12:03 36.7 C 67 18 111/80 92 05/10/21 10:11 90 05/10/21 07:53 36.6 C 69 18 127/59 L 92 05/10/21 06:01 65 05/10/21 03:49 36.5 C 72 29 H 148/67 H 92 Pulse Ox 05/10/21 12:03 05/10/21 10:11 95 05/10/21 07:53 05/10/21 06:01 05/10/21 03:49 Laboratory Results Short CBC 05/10/21 Range/Units 06:44 WBC 4.97 (4.8-10.8) K/uL Hgb 12.3 L (14.0-18.0) g/dL Hct 37.2 L (42-52) % Plt Count 153 (130-400) K/uL BMP 05/10/21 06:44 Sodium 141 Potassium 4.0 Chloride 108 H Carbon Dioxide 24 BUN 27 H Creatinine 1.09 Glucose 101 H Calcium 7.6 L Liver Function 05/10/21 Range/Units 06:44 AST 46 H (15-37) U/L ALT 32 (12-78) U/L Medications Administered Current Inpatient Medications Acetaminophen (Acetaminophen 325 Mg Tab) 650 mg PO Q4H PRN PRN Reason: Pain or Fever Stop: 06/07/21 02:12 Albuterol (Albut/Ipratrop 3mg/0.5mg Neb 3 Ml Vial) 3 ml NEB Q2H PRN PRN Reason: Shortness Of Breath Or Wheezing Stop: 06/07/21 04:59 Amlodipine Besylate (Amlodipine Besylate 5 Mg Tab) 5 mg PO DAILY [facility]LA Stop: 06/07/21 08:59 Last Admin: 05/10/21 08:31 Dose: 5 mg Documented by: Aspirin (Aspirin 81 Mg Ectab) 81 mg PO DAILY MARLA Stop: 06/07/21 08:59 Last Admin: 05/10/21 08:31 Dose: 81 mg Documented by: Atenolol (Atenolol 50 Mg Tablet) 50 mg PO DAILY MARLA Stop: 06/07/21 08:59 Last Admin: 05/10/21 08:30 Dose: 50 mg Documented by: Atorvastatin Calcium (Atorvastatin 20 Mg Tab) 20 mg PO DAILY MARLA Stop: 06/07/21 08:59 Last Admin: 05/10/21 08:31 Dose: 20 mg Documented by: Benzonatate (Benzonatate 100 Mg Capsule) 100 mg PO TID PRN PRN Reason: cough Stop: 06/07/21 20:59 Calcium Carbonate (Calcium Carbonate 500 Mg Chewable Tab) 500 mg PO DAILY MARLA Stop: 06/07/21 08:59 Last Admin: 05/10/21 08:30 Dose: 500 mg Documented by: Dextrose (Dextrose 50% 50 Ml Syringe) 25 - 50 ml IV UD PRN; Protocol PRN Reason: Hypoglycemia Protocol Stop: 06/07/21 03:29 Diclofenac Sodium (Diclofenac Sod 1% Gel 100 Gm Tube) 4 gm EXT BID PRN PRN Reason: Pain Stop: 06/07/21 02:12 Doxazosin Mesylate (Doxazosin Mesylate 4 Mg Tab) 8 mg PO HS MARLA Stop: 06/07/21 20:59 Last Admin: 05/09/21 21:20 Dose: 8 mg Documented by: Enalapril Maleate (Enalapril Maleate 10 Mg Tab) 40 mg PO DAILY [facility]LA Stop: 06/07/21 08:59 Last Admin: 05/10/21 08:30 Dose: 40 mg Documented by: Enoxaparin Sodium (Enoxaparin Inj 40 Mg/0.4 Ml Syr) 40 mg SQ Q24H [facility]LA Stop: 06/07/21 07:59 Last Admin: 05/09/21 09:04 Dose: 40 mg Documented by: Finasteride (Finasteride 5 Mg Tab) 5 mg PO DAILY MARLA Stop: 06/07/21 08:59 Last Admin: 05/10/21 08:30 Dose: 5 mg Documented by: Fluticasone Propionate (Fluticasone Propionate Na Spr 16 Gm Btl) 2 sprays NA DAILY PRN PRN Reason: Allergy Symptoms Stop: 06/07/21 02:12 Fluticasone/Vilanterol (Fluticasone/Vilanterol 200/25mcg 14 Puffs/Inhaler) 1 puffs INH DAILY MARLA Stop: 06/07/21 08:59 Last Admin: 05/10/21 08:31 Dose: 1 puffs Documented by: Furosemide (Furosemide 20 Mg Tab) 20 mg PO DAILY MARLA Stop: 06/07/21 08:59 Last Admin: 05/10/21 08:31 Dose: 20 mg Documented by: Gabapentin (Gabapentin 400 Mg Cap) 400 mg PO QID MARLA Stop: 06/07/21 08:59 Last Admin: 05/10/21 13:00 Dose: 400 mg Documented by: Glucagon (Glucagon For Inj 1 Mg Vial) 1 mg IM UD PRN; Protocol PRN Reason: Hypoglycemia Protocol Stop: 06/07/21 03:29 Glucose (Glucose 40% Gel 15 Gm Tube) 15 - 30 gm PO UD PRN; Protocol PRN Reason: Hypoglycemia Protocol Stop: 06/07/21 03:29 Glucose (Glucose 10 Tabs/Tube) 4 - 8 tabs PO UD PRN; Protocol PRN Reason: Hypoglycemia Protocol Stop: 06/07/21 03:29 Guaifenesin/Codeine Phosphate (Guaifenesin/Codeine 200mg/20mg 10ml Udc) 10 ml PO Q6H PRN PRN Reason: Cough Stop: 06/07/21 17:12 Last Admin: 05/10/21 13:00 Dose: 10 ml Documented by: Remdesivir 100 mg/ Sodium (Chloride) 250 mls @ 250 mls/hr IV Q24H MARLA; Protocol Stop: 05/11/21 20:59 Last Infusion: 05/10/21 00:24 Dose: Infused Documented by: Dexamethasone 6 mg/ Syringe 1.5 mls @ 1 mls/min IV DAILY MARLA Stop: 05/18/21 08:59 Last Admin: 05/10/21 08:29 Dose: 1 mls/min Documented by: Insulin Aspart (Insulin Aspart 100 Units/Ml 3 Ml Pen) 0 units SC ACHS MARLA Stop: 06/07/21 07:29 Last Admin: 05/10/21 13:20 Dose: 1 units Documented by: Magnesium Oxide (Magnesium Oxide 400 Mg Tab) 400 mg PO DAILY MARLA Stop: 06/07/21 08:59 Last Admin: 05/10/21 08:30 Dose: 400 mg Documented by: Miscellaneous (Carbohydrates For Hypoglycemia ) 15 - 30 gm PO UD PRN PRN Reason: Hypoglycemia Treatment Stop: 06/07/21 03:29 Multivitamins/Minerals (Cerovite Adv Formula Tab) 1 tab PO QAM MARLA Stop: 06/07/21 08:59 Last Admin: 05/10/21 08:30 Dose: 1 tab Documented by: Nitroglycerin (Nitroglycerin Sl 0.4 Mg/Tab Tab) 0.4 mg SL UD PRN PRN Reason: Chest Pain Stop: 06/07/21 02:12 Ondansetron HCl (Ondansetron Inj 2 Mg/Ml 2 Ml Vial) 4 mg IV Q6H PRN PRN Reason: Nausea Stop: 06/07/21 02:12 Pantoprazole Sodium (Pantoprazole 40 Mg Tab) 40 mg PO BID [facility] Stop: 06/07/21 08:59 Last Admin: 05/10/21 08:29 Dose: 40 mg Documented by: Potassium Chloride (Potassium Chloride Crtab 20 Meq Tabcr) 20 meq PO TID MARLA Stop: 06/07/21 08:59 Last Admin: 05/10/21 13:00 Dose: 20 meq Documented by: Sodium Chloride (Sodium Chloride 0.9% 10ml Flush) 30 ml IV Q24H MARLA Stop: 05/12/21 02:14 Last Admin: 05/10/21 00:56 Dose: 30 ml Documented by: Spironolactone (Spironolactone 25 Mg Tab) 25 mg PO DAILY MARLA Stop: 06/07/21 08:59 Last Admin: 05/10/21 08:30 Dose: 25 mg Documented by: Zinc Sulfate (Zinc Sulfate 220 Mg Capsule) 220 mg PO DAILY MARLA Stop: 06/07/21 08:59 Last Admin: 05/10/21 08:30 Dose: 220 mg Documented by:
[2021-05-10] MEDS ORDERED: FUROSEMIDE INJ 20 MG/2 ML VIAL IV ONE (15:11)
[2021-05-10] MEDS: REMDESIVIR 100 MG in SODIUM CHLORIDE 0.9% 230 ML IV SCH (19:57)
[2021-05-10] MEDS: DOXAZosin MESYLATE 4 MG TAB PO SCH (21:47)
[2021-05-11 07:59] LABS: Hematocrit (blood only) 37.1 % (42-52); Hemoglobin 12.3 g/dL (14.0-18.0); Mean Corpuscular Hemoglobin 30.9 pg (25-34); Mean Corpuscular Hgb Conc 33.2 g/dL (32-36); Mean Corpuscular Volume 93.2 fL (80-100); Mean Platelet Volume 10.8 fL (7.4-10.4); Platelet Count 151 K/uL (130-400); RDW Coefficient of Variation 12.8 % (11.5-14.5); RDW Standard Deviation 43.6 fL (36.4-46.3); Red Blood Count 3.98 M/uL (4.7-6.1); White Blood Count 3.72 K/uL (4.8-10.8)
[2021-05-11 08:39] LABS: BUN Creatinine Ratio 24.3 (10-20); C Reactive Protein 1.48 mg/dl (0-0.29); Calcium 7.6 mg/dl (8.5-10.1); Creatinine Clr Calc Pharmacy 59.3 ml/min; Est GFR (African American) 74.7 ml/min; Est GFR (Non-African American) 64.4 ml/min; Magnesium 2.4 mg/dl (1.8-2.4); Potassium 4.2 mmol/L (3.5-5.1)
[2021-05-11 08:44] LABS: Phosphorus 3.4 mg/dl (2.5-4.9); Prostate Specific Antigen 0.067 ng/ml (0-4)
[2021-05-11] MEDS: dexAMETHasone 6 MG in SYRINGE 0 ML IV SCH (09:56)
[2021-05-11] MEDS: PANTOprazole 40 MG TAB PO SCH ×2 (09:56→21:43)
[2021-05-11] MEDS: ATENOLOL 50 MG TABLET PO SCH (09:56)
[2021-05-11] MEDS: GABAPENTIN 400 MG CAP PO SCH ×4 (09:56→21:42)
[2021-05-11] MEDS: ATORVASTATIN 20 MG TAB PO SCH (09:57)
[2021-05-11] MEDS: POTASSIUM CHLORIDE CRTAB 20 MEQ TABCR PO SCH ×3 (09:57→21:43)
[2021-05-11] MEDS: amLODIPine BESYLATE 5 MG TAB PO SCH (09:59)
[2021-05-11] MEDS: MAGNESIUM OXIDE 400 MG TAB PO SCH (09:59)
[2021-05-11] MEDS: FUROSEMIDE 20 MG TAB PO SCH (09:59)
[2021-05-11] MEDS: CALCIUM CARBONATE 500 MG CHEWABLE TAB PO SCH (09:59)
[2021-05-11] MEDS: SPIRONOLACTONE 25 MG TAB PO SCH (09:59)
[2021-05-11] MEDS: CEROVITE ADV FORMULA TAB PO SCH (09:59)
[2021-05-11] MEDS: ZINC SULFATE 220 MG CAPSULE PO SCH (10:00)
[2021-05-11] MEDS: FINASTERIDE 5 MG TAB PO SCH (10:00)
[2021-05-11] MEDS: ENALAPRIL MALEATE 10 MG TAB PO SCH (10:00)
[2021-05-11] MEDS: FLUTICASONE/VILANTEROL 200/25MCG 14 PUFFS/INHALER INH SCH (10:00)
[2021-05-11] MEDS: ASPIRIN 81 MG ECTAB PO SCH (10:01)
[2021-05-11] MEDS: ENOXAPARIN INJ 40 MG/0.4 ML SYR SQ SCH (10:01)
[2021-05-11] MEDS: INSULIN ASPART 100 UNITS/ML 3 ML PEN SC SCH ×4 (10:18→21:44)
--- NOTE | 2021-05-11 10:26 | XRay Report ---
SINGLE VIEW CHEST CLINICAL HISTORY: Hypoxia FINDINGS: An AP, portable, upright chest radiograph is compared to study dated 05/07/2021 and correla lefty with chest CT dated 01/06/2013. The patient is status post midline sternotomy. The heart is enlarg ed noting atherosclerotic calcification of the thoracic aorta. The pulmonary vasculature is nonconges lefty. 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 Moderate edematous change and chronic interstit ial thickening are again noted. Question airspace consolidation at the left lung base. No large pleur al effusion or pneumothorax is seen. The skeletal structures are osteopenic. The bony thorax is gross ly intact. Arthritic change is noted in the shoulders. IMPRESSION: 1. Cardiomegaly, emphysema, and chronic parenchymal changes as above. 2. Question superimposed airspace consolidation at the left lung base. Correlate clinically for evide nce of an infectious/inflammatory pneumonitis. Radiographic follow-up to resolution is recommended ACT 112: Negative or not required by law. Electronically signed by: Charly Pradhan M.D. 05/11/2021 10:25 AM
--- NOTE | 2021-05-11 19:36 | Hospitalist Progress Note ---
Date of Service May 11, 2021 Assessment & Plan (1) COVID-19: Plan: No evidence of pneumonia on chest x-ray but patient is hypoxic, more so than at home. Continue with remdesivir and steroids. He appears euvolemic. Continue to monitor in PCU. (2) Hypoxia: Plan: Increased oxygen needs required, continue plan as above. Continue outpatient diuretics including Lasix and spironolactone. (3) Gross hematuria: Plan: Occurred after khan placement and Lovenox. Possibly secondary to khan trauma. This was originally placed out of concern for desaturation events with movement to the bathroom. Followup with Urology as outpatient. Will retry Lovenox now and continue with higher risk of DVT in covid infection. Monitor hematuria in khan. (4) Chronic diastolic heart failure: Plan: Continue Lasix as spironolactone per home regimen. (5) CKD (chronic kidney disease), stage III: Plan: Renal function at baseline, avoid nephrotoxic substances and continue to monitor BMP periodically. (6) Polymyalgia rheumatica: Plan: Chronically on 5 mg of steroids daily which has been held in setting of Decadron administration. Will need to ensure prednisone is restarted at baseline dose when Decadron course has completed. (7) Hypertension: Plan: Around goal, continue home medications including amlodipine, atenolol, ANISHA inhibitor, furosemide, spironolactone (8) Diabetes mellitus: Plan: Basal bolus insulin, at inpatient goal. (9) Sleep apnea: Plan: CPAP nightly, seems to be having some trouble with the mask . (10) DVT prophylaxis: Plan: Lovenox Full code Disposition-PCU DO [facility] Admission and Anticipated Discharge Date Admission Date: May 07, 2021 Subjective 86-year-old diabetic man vaccinated with 2 doses of the Covid vaccine presented with 1 week of productive cough, fever and shortness of breath. appetite has improved slight hematuria in khan after restarting Lovenox denied fevers, chills, or chest pain Review of Systems Review of Systems: All systems reviewed and negative except as indicated in subjective above. Physical Exam Physical Exam: CONSTITUTIONAL: obese, vitals as above, generally well- appearing, NAD EYES: normal conjunctivae, no scleral icterus ENT: external ear and nose normal, MMM NECK: trachea midline RESPIRATORY: Coarse crackles in right base and RLL, otherwise clear to auscultation without wheezes or rales. Normal respiratory effort on oxygen supplementation. CARDIOVASCULAR: regular rate and rhythm, S1 and 2 heard without murmurs, gallops or rubs, no JVD, trace peripheral edema bilaterally. GASTROINTESTINAL: soft, nontender, ND, no guarding MUSCULOSKELETAL: strength 5/5 throughout, head is normocephalic and atraumatic SKIN: warm and dry NEUROLOGIC: CN 2-12 grossly intact, normal cognition, normal speech, no tremor, no gross focal deficits. PSYCHIATRIC: alert cooperative and oriented to person, place and time. Results & Data Results & Data ([facility]) Vital Signs (Past 12 Hours) Vital Signs Temp Pulse Resp BP BP Pulse Ox 05/11/21 15:34 36.4 C L 74 24 128/67 95 05/11/21 11:40 36.5 C 64 22 106/62 94 05/11/21 07:45 36.7 C 66 20 147/80 H 93 Laboratory Results Short CBC 05/11/21 Range/Units 07:19 WBC 3.72 L (4.8-10.8) K/uL Hgb 12.3 L (14.0-18.0) g/dL Hct 37.1 L (42-52) % Plt Count 151 (130-400) K/uL BMP 05/11/21 07:19 Sodium 141 Potassium 4.2 Chloride 109 H Carbon Dioxide 26 BUN 26 H Creatinine 1.05 Glucose 117 H Calcium 7.6 L Liver Function 05/11/21 Range/Units 07:19 AST 31 (15-37) U/L ALT 32 (12-78) U/L Diagnostic Findings Chest X-Ray 05/11/21 07:00 SINGLE VIEW CHEST CLINICAL HISTORY: Hypoxia FINDINGS: An AP, portable, upright chest radiograph is compared to study dated 05/07/2021 and correlated with chest CT dated 01/06/2013. The patient is status post midline sternotomy. The heart is enlarged noting atherosclerotic calcification of the thoracic aorta. The pulmonary vasculature is noncongested. 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 Moderate edematous change and chronic interstitial thickening are again noted. Question airspace consolidation at the left lung base. No large pleural effusion or pneumothorax is seen. The skeletal structures are osteopenic. The bony thorax is grossly intact. Arthritic change is noted in the shoulders. IMPRESSION: 1. Cardiomegaly, emphysema, and chronic parenchymal changes as above. 2. Question superimposed airspace consolidation at the left lung base. Correlate clinically for evidence of an infectious/inflammatory pneumonitis. Radiographic follow-up to resolution is recommended ACT 112: Negative or not required by law. Electronically signed by: Charly Pradhan M.D. 05/11/2021 10:25 AM Medications Administered Current Inpatient Medications Acetaminophen (Acetaminophen 325 Mg Tab) 650 mg PO Q4H PRN PRN Reason: Pain or Fever Stop: 06/07/21 02:12 Albuterol (Albut/Ipratrop 3mg/0.5mg Neb 3 Ml Vial) 3 ml NEB Q2H PRN PRN Reason: Shortness Of Breath Or Wheezing Stop: 06/07/21 04:59 Amlodipine Besylate (Amlodipine Besylate 5 Mg Tab) 5 mg PO DAILY MARLA Stop: 06/07/21 08:59 Last Admin: 05/11/21 09:59 Dose: 5 mg Documented by: Aspirin (Aspirin 81 Mg Ectab) 81 mg PO DAILY MARLA Stop: 06/07/21 08:59 Last Admin: 05/11/21 10:01 Dose: 81 mg Documented by: Atenolol (Atenolol 50 Mg Tablet) 50 mg PO DAILY MARLA Stop: 06/07/21 08:59 Last Admin: 05/11/21 09:56 Dose: 50 mg Documented by: Atorvastatin Calcium (Atorvastatin 20 Mg Tab) 20 mg PO DAILY MARLA Stop: 06/07/21 08:59 Last Admin: 05/11/21 09:57 Dose: 20 mg Documented by: Benzonatate (Benzonatate 100 Mg Capsule) 100 mg PO TID PRN PRN Reason: cough Stop: 06/07/21 20:59 Calcium Carbonate (Calcium Carbonate 500 Mg Chewable Tab) 500 mg PO DAILY MARLA Stop: 06/07/21 08:59 Last Admin: 05/11/21 09:59 Dose: 500 mg Documented by: Dextrose (Dextrose 50% 50 Ml Syringe) 25 - 50 ml IV UD PRN; Protocol PRN Reason: Hypoglycemia Protocol Stop: 06/07/21 03:29 Diclofenac Sodium (Diclofenac Sod 1% Gel 100 Gm Tube) 4 gm EXT BID PRN PRN Reason: Pain Stop: 06/07/21 02:12 Doxazosin Mesylate (Doxazosin Mesylate 4 Mg Tab) 8 mg PO HS MARLA Stop: 06/07/21 20:59 Last Admin: 05/10/21 21:47 Dose: 8 mg Documented by: Enalapril Maleate (Enalapril Maleate 10 Mg Tab) 40 mg PO DAILY [facility]LA Stop: 06/07/21 08:59 Last Admin: 05/11/21 10:00 Dose: 40 mg Documented by: Enoxaparin Sodium (Enoxaparin Inj 40 Mg/0.4 Ml Syr) 40 mg SQ Q24H [facility]LA Stop: 06/07/21 07:59 Last Admin: 05/11/21 10:01 Dose: 40 mg Documented by: Finasteride (Finasteride 5 Mg Tab) 5 mg PO DAILY [facility]LA Stop: 06/07/21 08:59 Last Admin: 05/11/21 10:00 Dose: 5 mg Documented by: Fluticasone Propionate (Fluticasone Propionate Na Spr 16 Gm Btl) 2 sprays NA DAILY PRN PRN Reason: Allergy Symptoms Stop: 06/07/21 02:12 Fluticasone/Vilanterol (Fluticasone/Vilanterol 200/25mcg 14 Puffs/Inhaler) 1 puffs INH DAILY [facility]LA Stop: 06/07/21 08:59 Last Admin: 05/11/21 10:00 Dose: 1 puffs Documented by: Furosemide (Furosemide 20 Mg Tab) 20 mg PO DAILY [facility] Stop: 06/07/21 08:59 Last Admin: 05/11/21 09:59 Dose: 20 mg Documented by: Gabapentin (Gabapentin 400 Mg Cap) 400 mg PO QID [facility]LA Stop: 06/07/21 08:59 Last Admin: 05/11/21 17:27 Dose: 400 mg Documented by: Glucagon (Glucagon For Inj 1 Mg Vial) 1 mg IM UD PRN; Protocol PRN Reason: Hypoglycemia Protocol Stop: 06/07/21 03:29 Glucose (Glucose 40% Gel 15 Gm Tube) 15 - 30 gm PO UD PRN; Protocol PRN Reason: Hypoglycemia Protocol Stop: 06/07/21 03:29 Glucose (Glucose 10 Tabs/Tube) 4 - 8 tabs PO UD PRN; Protocol PRN Reason: Hypoglycemia Protocol Stop: 06/07/21 03:29 Guaifenesin/Codeine Phosphate (Guaifenesin/Codeine 200mg/20mg 10ml Udc) 10 ml PO Q6H PRN PRN Reason: Cough Stop: 06/07/21 17:12 Last Admin: 05/10/21 13:00 Dose: 10 ml Documented by: Remdesivir 100 mg/ Sodium (Chloride) 250 mls @ 250 mls/hr IV Q24H [facility]; Protocol Stop: 05/11/21 20:59 Last Infusion: 05/10/21 21:48 Dose: Infused Documented by: Dexamethasone 6 mg/ Syringe 1.5 mls @ 1 mls/min IV DAILY [facility] Stop: 05/18/21 08:59 Last Admin: 05/11/21 09:56 Dose: 1 mls/min Documented by: Insulin Aspart (Insulin Aspart 100 Units/Ml 3 Ml Pen) 0 units SC ACHS [facility] Stop: 06/07/21 07:29 Last Admin: 05/11/21 17:26 Dose: 1 units Documented by: Magnesium Oxide (Magnesium Oxide 400 Mg Tab) 400 mg PO DAILY [facility] Stop: 06/07/21 08:59 Last Admin: 05/11/21 09:59 Dose: 400 mg Documented by: Miscellaneous (Carbohydrates For Hypoglycemia ) 15 - 30 gm PO UD PRN PRN Reason: Hypoglycemia Treatment Stop: 06/07/21 03:29 Multivitamins/Minerals (Cerovite Adv Formula Tab) 1 tab PO QAM [facility] Stop: 06/07/21 08:59 Last Admin: 05/11/21 09:59 Dose: 1 tab Documented by: Nitroglycerin (Nitroglycerin Sl 0.4 Mg/Tab Tab) 0.4 mg SL UD PRN PRN Reason: Chest Pain Stop: 06/07/21 02:12 Ondansetron HCl (Ondansetron Inj 2 Mg/Ml 2 Ml Vial) 4 mg IV Q6H PRN PRN Reason: Nausea Stop: 06/07/21 02:12 Pantoprazole Sodium (Pantoprazole 40 Mg Tab) 40 mg PO BID [facility] Stop: 06/07/21 08:59 Last Admin: 05/11/21 09:56 Dose: 40 mg Documented by: Potassium Chloride (Potassium Chloride Crtab 20 Meq Tabcr) 20 meq PO TID [facility] Stop: 06/07/21 08:59 Last Admin: 05/11/21 14:41 Dose: 20 meq Documented by: Sodium Chloride (Sodium Chloride 0.9% 10ml Flush) 30 ml IV Q24H [facility] Stop: 05/12/21 02:14 Last Admin: 05/10/21 23:00 Dose: 30 ml Documented by: Spironolactone (Spironolactone 25 Mg Tab) 25 mg PO DAILY [facility] Stop: 06/07/21 08:59 Last Admin: 05/11/21 09:59 Dose: 25 mg Documented by: Zinc Sulfate (Zinc Sulfate 220 Mg Capsule) 220 mg PO DAILY [facility] Stop: 06/07/21 08:59 Last Admin: 05/11/21 10:00 Dose: 220 mg Documented by:
[2021-05-11] MEDS: REMDESIVIR 100 MG in SODIUM CHLORIDE 0.9% 230 ML IV SCH (20:23)
[2021-05-11] MEDS: SODIUM CHLORIDE 0.9% 10ML FLUSH IV SCH (21:23)
[2021-05-11] MEDS: DOXAZosin MESYLATE 4 MG TAB PO SCH (21:43)
[2021-05-12 08:14] LABS: Creatinine Clr Calc Pharmacy 59.7 ml/min; Est GFR (African American) 74.7 ml/min; Est GFR (Non-African American) 64.4 ml/min
[2021-05-12] MEDS: INSULIN ASPART 100 UNITS/ML 3 ML PEN SC SCH ×4 (08:53→21:50)
[2021-05-12] MEDS: ASPIRIN 81 MG ECTAB PO SCH (08:58)
[2021-05-12] MEDS: ATENOLOL 50 MG TABLET PO SCH (08:58)
[2021-05-12] MEDS: amLODIPine BESYLATE 5 MG TAB PO SCH (08:58)
[2021-05-12] MEDS: dexAMETHasone 6 MG in SYRINGE 0 ML IV SCH (08:59)
[2021-05-12] MEDS: CALCIUM CARBONATE 500 MG CHEWABLE TAB PO SCH (08:59)
[2021-05-12] MEDS: ATORVASTATIN 20 MG TAB PO SCH (08:59)
[2021-05-12] MEDS: FINASTERIDE 5 MG TAB PO SCH (08:59)
[2021-05-12] MEDS: FUROSEMIDE 20 MG TAB PO SCH (09:00)
[2021-05-12] MEDS: GABAPENTIN 400 MG CAP PO SCH ×4 (09:00→20:31)
[2021-05-12] MEDS: ENALAPRIL MALEATE 10 MG TAB PO SCH (09:00)
[2021-05-12] MEDS: MAGNESIUM OXIDE 400 MG TAB PO SCH (09:01)
[2021-05-12] MEDS: PANTOprazole 40 MG TAB PO SCH ×2 (09:01→20:32)
[2021-05-12] MEDS: ZINC SULFATE 220 MG CAPSULE PO SCH (09:02)
[2021-05-12] MEDS: CEROVITE ADV FORMULA TAB PO SCH (09:02)
[2021-05-12] MEDS: SPIRONOLACTONE 25 MG TAB PO SCH (09:02)
[2021-05-12] MEDS: FLUTICASONE/VILANTEROL 200/25MCG 14 PUFFS/INHALER INH SCH (09:02)
[2021-05-12] MEDS: POTASSIUM CHLORIDE CRTAB 20 MEQ TABCR PO SCH ×3 (09:02→20:32)
[2021-05-12] MEDS: ENOXAPARIN INJ 40 MG/0.4 ML SYR SQ SCH (10:39)
--- NOTE | 2021-05-12 18:58 | Hospitalist Progress Note ---
Date of Service May 12, 2021 Assessment & Plan (1) Pneumonia due to COVID-19 virus: Plan: Question of possible pneumonia on repeat CXR, Continue with remdesivir and steroids. still requiring a higher oxygen amount than his baseline. He appears euvolemic. (2) Hypoxia: Plan: Increased oxygen needs required, continue plan as above. Continue outpatient diuretics including Lasix and spironolactone. (3) Gross hematuria: Plan: Occurred after khan placement and Lovenox. Possibly secondary to khan trauma. This was originally placed out of concern for desaturation events with movement to the bathroom. Followup with Urology as outpatient. Will retry Lovenox now and continue with higher risk of DVT in covid infection. Monitor hematuria in khan. (4) Chronic diastolic heart failure: Plan: Continue Lasix and spironolactone per home regimen. (5) CKD (chronic kidney disease), stage III: Plan: Renal function at baseline, avoid nephrotoxic substances and continue to monitor BMP periodically. (6) Polymyalgia rheumatica: Plan: Chronically on 5 mg of steroids daily which has been held in setting of Decadron administration. Will need to ensure prednisone is restarted at baseline dose when Decadron course has completed. (7) Hypertension: Plan: Around goal, continue home medications including amlodipine, atenolol, ANISHA inhibitor, furosemide, spironolactone (8) Diabetes mellitus: Plan: Basal bolus insulin, at inpatient goal. (9) Sleep apnea: Plan: CPAP nightly, noncompliant with this since he has been having difficulty with the mask. (10) DVT prophylaxis: Plan: Lovenox Full code Disposition-PCU Shobha Perdomo DO [facility] Hospitalist Admission and Anticipated Discharge Date Admission Date: May 07, 2021 Subjective 86-year-old diabetic man vaccinated with 2 doses of the Covid vaccine presented with 1 week of productive cough, fever and shortness of breath. He verbalized wanting to go home as soon as possible. He is also understanding that right now his oxygen levels are not allowing that. Denies any pain or worsening SOB, no chest pain, feels improved overall. Review of Systems Review of Systems: All systems reviewed and negative except as indicated in subjective above. Physical Exam Physical Exam: CONSTITUTIONAL: obese, vitals as above, generally well- appearing, NAD EYES: normal conjunctivae, no scleral icterus ENT: external ear and nose normal, MMM NECK: trachea midline RESPIRATORY: Coarse crackles in right base and RLL, otherwise clear to auscultation without wheezes or rales. Normal respiratory effort on oxygen supplementation. CARDIOVASCULAR: regular rate and rhythm, S1 and 2 heard without murmurs, gallops or rubs, no JVD, trace peripheral edema bilaterally. GASTROINTESTINAL: soft, nontender, ND, no guarding MUSCULOSKELETAL: strength 5/5 throughout, head is normocephalic and atraumatic SKIN: warm and dry NEUROLOGIC: CN 2-12 grossly intact, normal cognition, normal speech, no tremor, no gross focal deficits. PSYCHIATRIC: alert cooperative and oriented to person, place and time. Results & Data Results & Data ([facility]) Vital Signs (Past 12 Hours) Vital Signs Temp Pulse Pulse Resp BP Pulse Ox 05/12/21 15:46 36.4 C L 71 17 108/59 L 95 05/12/21 11:13 36.6 C 66 18 110/60 90 05/12/21 08:00 36.6 C 62 71 22 102/48 L 94
[2021-05-12] MEDS: DOXAZosin MESYLATE 4 MG TAB PO SCH (20:32)
[2021-05-13 06:29] LABS: Hematocrit (blood only) 37.1 % (42-52); Hemoglobin 12.5 g/dL (14.0-18.0); Mean Corpuscular Hemoglobin 30.9 pg (25-34); Mean Corpuscular Hgb Conc 33.7 g/dL (32-36); Mean Corpuscular Volume 91.8 fL (80-100); Mean Platelet Volume 11.1 fL (7.4-10.4); Platelet Count 178 K/uL (130-400); RDW Coefficient of Variation 12.8 % (11.5-14.5); RDW Standard Deviation 43.4 fL (36.4-46.3); Red Blood Count 4.04 M/uL (4.7-6.1)
[2021-05-13 07:05] LABS: BUN Creatinine Ratio 28.5 (10-20); Calcium 8.3 mg/dl (8.5-10.1); Creatinine Clr Calc Pharmacy 54.5 ml/min; Est GFR (African American) 66.9 ml/min; Est GFR (Non-African American) 57.7 ml/min; Potassium 4.6 mmol/L (3.5-5.1)
[2021-05-13 07:06] LABS: C Reactive Protein 0.77 mg/dl (0-0.29)
[2021-05-13] MEDS: FLUTICASONE/VILANTEROL 200/25MCG 14 PUFFS/INHALER INH SCH (08:30)
[2021-05-13] MEDS: SPIRONOLACTONE 25 MG TAB PO SCH (08:31)
[2021-05-13] MEDS: ENALAPRIL MALEATE 10 MG TAB PO SCH (08:31)
[2021-05-13] MEDS: ASPIRIN 81 MG ECTAB PO SCH (08:31)
[2021-05-13] MEDS: FUROSEMIDE 20 MG TAB PO SCH (08:31)
[2021-05-13] MEDS: PANTOprazole 40 MG TAB PO SCH (08:31)
[2021-05-13] MEDS: CALCIUM CARBONATE 500 MG CHEWABLE TAB PO SCH (08:31)
[2021-05-13] MEDS: CEROVITE ADV FORMULA TAB PO SCH (08:31)
[2021-05-13] MEDS: ZINC SULFATE 220 MG CAPSULE PO SCH (08:31)
[2021-05-13] MEDS: GABAPENTIN 400 MG CAP PO SCH ×3 (08:31→17:14)
[2021-05-13] MEDS: amLODIPine BESYLATE 5 MG TAB PO SCH (08:31)
[2021-05-13] MEDS: FINASTERIDE 5 MG TAB PO SCH (08:31)
[2021-05-13] MEDS: POTASSIUM CHLORIDE CRTAB 20 MEQ TABCR PO SCH ×2 (08:31→13:40)
[2021-05-13] MEDS: ATORVASTATIN 20 MG TAB PO SCH (08:31)
[2021-05-13] MEDS: INSULIN ASPART 100 UNITS/ML 3 ML PEN SC SCH ×3 (08:32→17:14)
[2021-05-13] MEDS: MAGNESIUM OXIDE 400 MG TAB PO SCH (08:32)
[2021-05-13] MEDS: dexAMETHasone 6 MG in SYRINGE 0 ML IV SCH (08:32)
[2021-05-13] MEDS: ATENOLOL 50 MG TABLET PO SCH (08:32)
--- NOTE | 2021-05-13 18:00 | Discharge Summary ---
Date of Service May 13, 2021 Admission HPI Per Admitting Provider HISTORY OF PRESENT ILLNESS: This is an 86-year-old male with past medical history significant for type 2 diabetes, steroid-induced diabetes, chronic kidney disease stage III, hyperlipidemia, chronic respiratory failure with hypoxia on home oxygen 1-1.5 liters , history of tracheobronchitis, history of obstructive sleep apnea, chronic diastolic failure, hypertension, history of PVCs, irritable bowel syndrome, GERD, dysphagia, history of Schatzki ring, Reveles's esophagus without dysplasia, history of adenomatous polyp of transverse colon, history of prostate cancer, BPH, 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, senile osteoporosis, history of bilateral leg edema, generalized osteoarthritis, macular degeneration, spinal stenosis, history of Hodgkin's disease, history of DVT, history of generalized anxiety, who presents with fever and shortness of breath. The patient was diagnosed with COVID on 05/04/2021. The patient received 2 doses of COVID vaccine, Pfizer vaccine, in July and second dose on 08/30/2020. Did not take his booster. He is having symptoms for the last 1 week, having cough with some phlegm and fever and shortness of breath. Appetite is down. Denies any chest pain. On home oxygen, generally he is at 1-1.5 liters at home, but currently requiring up to 4 liters. He was 89% on his usual oxygen, currently with 4 liters he is saturating fine and feeling better. He has some headache. Has some runny nose, no earache, no sore throat. Vision is okay. Has nausea and vomited one time yesterday. No abdominal pain, no diarrhea. Normal bowel and bladder movements. Currently, hemodynamics are o maggie. Admission Exam Per Admitting Provider PHYSICAL EXAMINATION: GENERAL: The patient is obese, not in acute distress. VITAL SIGNS: Temperature 37.2, pulse 95, respiratory rate 18, blood pressure 115/74, oxygen currently 96% on 4 liters. HEENT: Pupils equal, round, and reactive to light. Oral mucosa dry. NECK: No JVD or neck masses. CARDIOVASCULAR: S1 and S2 heard. Regular rate and rhythm. No murmur, no gallop. RESPIRATORY SYSTEM: Normal AP diameter. No accessory muscle use. No wheezing, no crackles. ABDOMEN: Soft, bowel sounds present, nontender, no distention. CENTRAL NERVOUS SYSTEM: Cranial nerves II-XII grossly intact, nonfocal. EXTREMITIES: Trace +1 pedal edema present, no erythema seen. Principal Diagnosis Pneumonia due to covid-19 virus Gross hematuria Obstructive sleep apnea requiring CPAP Discharge Exam CONSTITUTIONAL: obese, vitals as above, generally well-appearing, NAD EYES: normal conjunctivae, no scleral icterus ENT: external ear and nose normal, MMM NECK: trachea midline RESPIRATORY: Coarse crackles in right base and RLL, otherwise clear to auscultation without wheezes or rales. Normal respiratory effort on oxygen supplementation. CARDIOVASCULAR: regular rate and rhythm, S1 and 2 heard without murmurs, gallops or rubs, no JVD, trace peripheral edema bilaterally. GASTROINTESTINAL: soft, nontender, ND, no guarding MUSCULOSKELETAL: strength 5/5 throughout, head is normocephalic and atraumatic SKIN: warm and dry NEUROLOGIC: CN 2-12 grossly intact, normal cognition, normal speech, no tremor, no gross focal deficits. PSYCHIATRIC: alert cooperative and oriented to person, place and time. Discharge Data Allergies Allergy/AdvReac Type Severity Reaction Status Date / Time Penicillins Allergy Intermediate RASH, ITCHY Verified 05/07/21 20:46 oxycodone AdvReac Intermediate hallucinati Verified 05/07/21 20:46 ons Opioid Analgesics AdvReac Intermediate hallucinations, Uncoded 05/07/21 20:46 can take codeine Consultations 05/07/21 21:38 ED Decision to Admit Stat 05/09/21 14:48 Consult Urology Routine Hospital Course (1) Pneumonia due to COVID-19 virus: Increased oxygen needs required initially. He was continued on daily steroid therapy and his home diuretics. Two step was completed prior to discharge and he required 1LPM and 3LPM with ambulation. Updated prescription sent to his oxygen supplier. (2) Gross hematuria: Occurred after khan placement and Lovenox. Possibly secondary to khan trauma. This was originally placed out of concern for desaturation events with movement to the bathroom. Lovenox was restarted after hematuria had cleared. Slight reddish tint to urine returned. Khan removed and hematuria resolved prior to discharge. Followup with Urology as outpatient per their recommendation. (3) Chronic diastolic heart failure: Compensated, continued on Lasix as spironolactone per home regimen. (4) Polymyalgia rheumatica: Chronically on 5 mg of steroids daily which has been held in setting of Decadron administration. Will need to ensure prednisone is restarted at baseline dose when Decadron course has completed. (5) Diabetes mellitus: Treated wtih insulin while hospitalized. Diabetes puts him at higher risk for complications from an infection with novel coronavirus. Total Time Total Time Spent Total Time Spent (In Minutes): 60 Discharge Plan Discharge Items Patient Disposition: Home - Home Health Services Reason For Visit: FEVER Discharge Diagnosis: Pneumonia due to covid-19 virus Gross hematuria Obstructive sleep apnea requiring CPAP Activity: Resume your previous activity Non-emergency contact: Primary Care Provider Call non-emergency contact if: you have any medication questions and your symptoms worsen Follow-up/Referrals: Mirza Mcgee MD [Primary Care Provider] - (Date & Time 05/21/2021 11:00 AM Provider Mirza Mcgee III, MD Department [facility] ) Diet: Carb Consistent or DM2 Addtl Attending Provider Instructions: Please take all medications as instructed on discharge list below. You are being given an additional 5 days of steroids to take after returning home. Once you have completed this, please resume your chronic daily 5mg prednisone. You will need to increase your oxygen to at least 3LPM with ANY ambulation. Please monitor your oxygen at home and have a goal saturation >88% at all times. Please continue to wear your CPAP mask at night. It is recommended that you follow-up with your primary care physician (PCP) within 1-2 weeks to ensure you are still doing well after returning home. While in the hospital you were seen to have blood in your urine after placement of a khan catheter. Per the urologist who saw you, it would be appropriate to follow-up with urology as outpatient to investigate this further as appropriate. You were seen by Dr. Eduardo Briones from [facility] while you were admitted. It was a pleasure taking care of you! Please call if you have any questions or problems. You can reach a [facility] hospitalist on duty at [facility] 24 hours a day by calling [phone]. Take care of yourself. Shobha Perdomo, DO [facility] Hospitalist Pending Studies at Discharge: No Stand-Alone Forms: My [facility] Medications and DC Order Prescriptions: New dexamethasone [Decadron] 6 mg tablet 6 mg PO DAILY Qty: 5 RF: 0 Continued doxazosin 8 mg tablet 8 mg PO HS RF: 0 finasteride 5 mg tablet 5 mg PO DAILY RF: 0 spironolactone 50 mg tablet 25 mg PO DAILY RF: 0 furosemide 20 mg tablet 20 mg PO DAILY RF: 0 potassium chloride 10 mEq tablet extended release 20 meq PO TID RF: 0 omeprazole 20 mg capsule,delayed release(DR/EC) 20 mg PO BID RF: 0 fluticasone propionate 50 mcg/actuation spray,suspension 2 spray INTRANASAL DAILY PRN (Reason: Allergy Symptoms) RF: 0 ipratropium-albuterol 0.5 mg-3 mg(2.5 mg base)/3 mL solution for nebulization 3 ml INHALATION BID RF: 0 prednisone 5 mg tablet 5 - 10 mg PO UD RF: 0 benazepril 40 mg tablet 40 mg PO DAILY RF: 0 atenolol 50 mg tablet 50 mg PO DAILY RF: 0 atorvastatin 20 mg tablet 20 mg PO DAILY RF: 0 gabapentin 400 mg capsule 400 mg PO QID RF: 0 Breo Ellipta 100-25 mcg/dose blister with device 1 ea INHALATION DAILY RF: 0 amlodipine 5 mg tablet 5 mg PO DAILY RF: 0 aspirin [Aspirin Low Dose] 81 mg Tablet,Delayed Release (Dr/Ec) 81 mg PO DAILY RF: 0 zinc gluconate 50 mg Tablet 50 mg PO DAILY RF: 0 magnesium 250 mg Tablet 250 mg PO DAILY RF: 0 leuprolide (6 month) 45 mg Syringe 45 mg SUBCUT .EVERY 6 MONTHS RF: 0 diclofenac sodium 1 % gel 4 g TOPICAL BID PRN (Reason: Pain) RF: 0 PreserVision AREDS-2 250-90-40-1 mg Capsule 1 tab PO BID RF: 0 calcium carbonate [Calcium Antacid] 200 mg calcium (500 mg) Tablet,Chewable 200 mg PO DAILY RF: 0 Discontinued azithromycin 250 mg tablet 250 - 500 mg PO DAILY RF: 0 prednisone 20 mg tablet 20 mg PO BID RF: 0 Discharge Orders: Discharge Order (Routine); Ordered 05/13/21 Ordered By: Shobha Valentin/Other Patient Handouts: High Blood Sugar (Hyperglycemia), Hypoglycemia (Low Blood Sugar), Managing Type 2 Diabetes Admission Data Admit Date/Time: 05/07/21 23:20 Attending Provider: Shobha Perdomo Admit Provider: Lamont Nugent Primary Care Provider: Mirza Mcgee Other Providers: Eduardo Briones Other Interventions: Discharge Summary Assessment (RN) Last Done: 05/13/21 18:17
== END 2021-05-13 18:55 | disposition home health service (06) | DRG 177 ==
LOC: ED 19:45 → 2E 23:20
DX: Z99.81 Dependence on supplemental oxygen; J12.82 Pneumonia due to coronavirus disease 2019; M35.3 Polymyalgia rheumatica; N18.30 Chronic kidney disease, stage 3 unspecified; I50.32 Chronic diastolic (congestive) heart failure; E78.5 Hyperlipidemia, unspecified; U07.1 COVID-19; Z85.46 Personal history of malignant neoplasm of prostate; R31.0 Gross hematuria; Z79.82 Long term (current) use of aspirin; Z88.5 Allergy status to narcotic agent; I13.0 Hypertensive heart and chronic kidney disease with heart failure and stage 1 through stage 4 chronic kidney disease, or unspecified chronic kidney disease; G47.33 Obstructive sleep apnea (adult) (pediatric); Z88.0 Allergy status to penicillin; E11.22 Type 2 diabetes mellitus with diabetic chronic kidney disease

== ENCOUNTER 2023-07-04 18:00 | Inpatient (IN) ==
--- NOTE | 2023-07-04 18:12 | Emergency Department Note ---
Impression & Plan Hemoptysis, COVID-19 ED Provider Note CHIEF COMPLAINT: Hemoptysis HISTORY OF PRESENTING ILLNESS: This 88-year-old male patient presents to the emergency department via ambulance for evaluation of hemoptysis that started at noon today. Per EMS, around noon today he started coughing up bright red blood. EMS thinks that he coughed up 500 ml to 1 L. He states that it is only coughing up blood, no vomiting. No abdominal pain currently, but has had abdominal pain over the past month. Has some pain in his back, but states that he does tend to get back pain frequently. Usually uses 1.5 L of O2 at home. History of throat cancer 12 years ago and has a history of esophageal varices from Hodgkin's Lymphoma. Also has a history of liver cancer with multiple mets seen on his most recent PET scan per his . Not on any blood thinners. He follows with most of his doctors at [facility]. The patient has not had any fevers and has not really been coughing recently. He did start with a runny nose and nasal congestion today. Denies any nosebleed. He states that he does not check his stool to see if there is any blood in it. Denies hematuria. Denies any chest pain, but is having shortness of breath. TXA neb was ordered per medical command for EMS, but the patient states that he never got a nebulizer in the ambulance. We contacted EMS and they confirmed he was given 1000 mg TXA IV and not nebulized. The patient states that he does not want to be intubated and does not want to be resuscitated with CPR and his is in agreement with his wishes REVIEW OF SYSTEMS: See HPI for pertinent positives and pertinent negatives. ALLERGIES: PCN, oxycodone, opioids MEDICATIONS: See below PAST MEDICAL HISTORY: See below PHYSICAL EXAM: VITALS: Vitals are noted on the nurse's note and reviewed by myself. GENERAL: The patient is coughing up bright red blood and appears mildly short of breath, but otherwise is generally non toxic in appearance and in no acute distress. SKIN: Capillary refill <2 sec. EYES: PERRLA. EOMI. Conjunctivae without injection, sclerae without icterus. NOSE: Patent without discharge. No active bleeding or dried blood within the nares. MOUTH: Mucous membranes moist. Uvula midline. Airway patent. Pharynx difficult to assess due to the bright red blood along the pharynx, posterior pharynx, and mouth. NECK: Supple without nuchal rigidity. No JVD. No lymphadenopathy. HEART: Regular rate and rhythm without murmurs gallops or rubs. LUNGS: Clear to auscultation bilaterally, but there are rales and rhonchi throughout. Mild accessory muscle use, but no retractions. The patient is coughing up bright red blood. ABDOMEN: Positive bowel sounds x 4. Normal tympanic percussion. Soft, mildly distended, nontender. No masses or organomegaly. Zhang sign negative. No guarding or rebound tenderness. No focal RLQ or LLQ tenderness. MUSCULOSKELETAL: Mild bilateral edema without pitting. No tenderness to palpation of the bilateral lower extremities. NEURO: Patient was alert and oriented. No focal neurological deficits. DIFFERENTIAL DIAGNOSIS: Differential diagnosis includes bleeding esophageal varices, GI bleed, hemoptysis, lung cancer, pneumonia, PE, CHF, nosebleed, coagulopathy, anemia, or others. ED COURSE AND MEDICAL DECISION MAKING: HISTORY FROM INDEPENDENT HISTORIAN: Additional history was obtained from EMS and the patient's . MONITOR: Continuous cardiac care unit nurse: Order was placed for continuous cardiac care unit nurse. Patient was placed on the cardiac care unit nurse and continuous pulse ox. Patient was noted to be in normal sinus rhythm at an initial rate of 82 bpm per my interpretation. EKG: EKG was interpreted by myself as sinus rhythm at 83 bpm with PACs, left ventricular hypertrophy with QRS widening, and nonspecific ST abnormalities, but no acute ST or T wave changes. MEDICATIONS GIVEN: 500 mL normal saline solution bolus, Protonix 40 mg IV, Pepcid 20 mg IV, Zofran 4 mg IV, TXA nebulizer treatment, Decadron 10 mg IV. INTERPRETATION OF LABS: I interpreted the labs with full lab results as below in the lab section of this note. I-STAT labs with a hemoglobin of 13.9, hematocrit 41, BUN 10, creatinine 0.7, anion gap 15, and glucose 113. Traditional labs: white blood cell count of 11.0, hemoglobin 13.8, platelet count of 123. Coags were normal. Glucose 112, total bilirubin 1.1, AST 40, and alk phos 2 8, but CMP otherwise without significant abnormalities. High-sensitivity troponin was normal. Lactate was normal. Ammonia level was normal. BNP elevated at 130. Respiratory bio fire was positive for COVID. Blood type B+ with a negative antibody screen. INTERPRETATION OF IMAGING: Imaging studies were interpreted by myself and read by radiology as per the imaging section of this note. Chest x-ray negative for acute abnormalities other than cardiomegaly. Soft tissue neck CT scan with IV contrast showed no acute abnormalities. CT scan of the chest with IV contrast shows an age-indeterminate compression deformity of T11 as well as similar perihilar and scattered atelectasis or scarring/posttreatment fibrosis with no focal consolidation. CT scan of the abdomen pelvis with IV contrast showed hepatic metastases with mild hepatomegaly as well as fluid and gas-filled small bowel loops which may represent enteritis or ileus. 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 CONSULTATIONS: On-call hospitalist MDM SUMMARY: I examined the patient. An IV lock was placed and labs were drawn. The patient's vital signs are actually pretty stable and the patient is satting well on 2 L of nasal cannula. The patient has an extensive oncological history as well as a history of esophageal varices per patient. The patient started with hemoptysis at noon today and has not been able to control it. The patient was given IV TXA per EMS. The patient's hemoptysis improved after the TXA nebulizer treatment in the ER. He still had some gurgling of some old blood in his throat that he would cough up intermittently. Hemoglobin is good at 13.8. Platelet count is low at 123, but INR is normal. BUN and creatinine are normal. High-sensitivity troponin normal. Lactate normal. BNP is mildly elevated. Ammonia level is normal. Respiratory bio fire was positive for COVID. CT scans of the soft tissue neck, chest, abdomen, and pelvis showed his malignancies and metastases, but no other acute abnormalities. The patient was independently evaluated by Dr. Guaman, who agrees with my assessment and treatment plan. The patient is stable on exam, but his condition is guarded. The patient does not want to be intubated and does not want to be resuscitated with CPR if anything were to happen. We discussed possible bronchoscopy by pulmonology and the patient states that he would need to talk with pulmonology to determine if that is something that he would be interested in. The patient will need to be admitted to the hospital for further inpatient evaluation and treatment and pulmonary consult. I spoke with the on-call hospitalist who agreed to admit the patient for further management. Please refer to his dictation for further details. The patient's care was transferred in stable condition. DIAGNOSIS: Hemoptysis COVID-19 Past Med/Surg History Medical History (Updated 07/04/23 @ 22:51 by Navya Marques PA-C) Gross hematuria DVT prophylaxis Fever Nausea Hypoxia COVID-19 Lumbar spondylosis Pain of left sacroiliac joint Chronic diastolic heart failure CKD (chronic kidney disease), stage III Polymyalgia rheumatica Hypertension Diabetes mellitus Sleep apnea Social History Smoking Status: Never smoker Second Hand Exposure: No; Do You Dip or Chew Tobacco: No; Hx Alcohol Use: No Hx Substance Use: No Preferred Language: Frisian Communication Ability: Effective Communication Ability Comment: able to verbally understand, macular degeneration inhibits reading &writing Copper Tapper Required: No Beliefs That Will Affect Care: None Current Living Situation: Spouse Other Information That Helps Us Care for You: No Feels Safe at Home: Yes Safety Concerns: Feels Safe At This Time Assistive Devices: Glasses, Hearing Aid - Bilateral, Oxygen - Continuous and Walker Allergies Allergies Allergy/AdvReac Type Severity Reaction Status Date / Time amoxicillin Allergy Intermediate ITCHY RASH Verified 07/04/23 18:53 Penicillins Allergy Intermediate RASH, ITCHY Verified 07/04/23 18:53 oxycodone AdvReac Intermediate SEVERE Verified 07/04/23 18:53 MENTAL CHANGES/hallucinations Opioid Analgesics AdvReac Intermediate SEVERE Uncoded 07/04/23 18:53 MENTAL CHANGES/hallucinations, can take codeine Home Meds Home Medications Medication Instructions Recorded Confirmed amlodipine 5 mg tablet 5 mg PO DAILY 02/02/21 07/04/23 aspirin 81 mg tablet,delayed 81 mg PO DAILY 02/02/21 07/04/23 release (Tucker Low Dose Aspirin) atenolol 50 mg tablet See Rx Instructions .Route .COMPLEX 02/02/21 07/04/23 atorvastatin 20 mg tablet 20 mg PO DAILY 02/02/21 07/04/23 benazepril 40 mg tablet 40 mg PO DAILY 02/02/21 07/04/23 doxazosin 8 mg tablet 8 mg PO HS 02/02/21 07/04/23 finasteride 5 mg tablet 5 mg PO QAM 02/02/21 07/04/23 fluticasone furoate 100 1 ea inhalation DAILY 02/02/21 07/04/23 mcg-vilanterol 25 mcg/dose inhalation powder (Breo Ellipta) furosemide 20 mg tablet 20 mg PO DAILY 02/02/21 07/04/23 gabapentin 400 mg capsule 400 mg PO QID 02/02/21 07/04/23 ipratropium 0.5 mg-albuterol 3 mg 3 ml inhalation BID 02/02/21 07/04/23 (2.5 mg base)/3 mL nebulization soln omeprazole 20 mg capsule,delayed 20 mg PO BID 02/02/21 07/04/23 release potassium chloride 10 mEq 30 meq PO QAM 02/02/21 07/04/23 tablet,extended release prednisone 5 mg tablet 5 mg PO DAILY 02/02/21 07/04/23 spironolactone 50 mg tablet 25 mg PO DAILY 02/02/21 07/04/23 acetaminophen 500 mg tablet 1,000 mg PO Q8H PRN PAIN, 07/04/23 07/04/23 (Tylenol Extra Strength) BREAKTHROUGH albuterol sulfate 2.5 mg/3 mL 2.5 mg inhalation DIRECTED PRN 07/04/23 07/04/23 (0.083 %) solution for nebulization Shortness Of Breath Or Wheezing albuterol sulfate 90 mcg/actuation 2 puff inhalation Q4H PRN Wheezing 07/04/23 07/04/23 aerosol inhaler benzonatate 100 mg capsule 100 - 200 mg PO TID PRN Cough 07/04/23 07/04/23 bisacodyl 5 mg tablet,delayed 5 mg PO HS PRN IF NO BM X 2 DAYS. 07/04/23 07/04/23 release (Dulcolax (bisacodyl)) buspirone 5 mg tablet 5 mg PO BID 07/04/23 07/04/23 cholecalciferol (vitamin D3) 25 25 mcg PO DAILY 07/04/23 07/04/23 mcg (1,000 unit) capsule (Vitamin D3) denosumab 60 mg/mL subcutaneous 0 mg subcut .[id number] 07/04/23 07/04/23 syringe (Prolia) diclofenac sodium 1 % topical gel 4 g topical BID PRN LOWER BACK PAIN 07/04/23 07/04/23 docusate sodium 100 mg capsule 100 mg PO BID 07/04/23 07/04/23 lidocaine 4 % topical patch 1 patch topical DAILY PRN Pain 07/04/23 07/04/23 metoclopramide HCl 5 mg tablet 5 - 10 mg PO AC 07/04/23 07/04/23 (Reglan) olanzapine 5 mg disintegrating 5 mg translingual QAM 07/04/23 07/04/23 tablet ondansetron 4 mg disintegrating 4 mg PO Q8H PRN NAUSEA/VOMITING 07/04/23 07/04/23 tablet polyethylene glycol 3350 17 17 g PO DAILY PRN Constipation 07/04/23 07/04/23 gram/dose oral powder (Miralax) prochlorperazine maleate 10 mg 10 mg PO Q6H PRN NAUSEA/VOMITING 07/04/23 07/04/23 tablet (Compazine) sennosides 8.6 mg-docusate sodium 1 tab-cap PO DAILY PRN Constipation 07/04/23 07/04/23 50 mg tablet (Senokot-S) tramadol 50 mg tablet 50 mg PO Q6H PRN Pain, Severe 07/04/23 07/04/23 Results & Data (ED) Vital Signs Vital Signs - 24 hr 07/04/23 18:04 07/04/23 18:12 07/04/23 18:19 Temperature Temperature Source Pulse Rate 81 81 81 Pulse Rate from SpO2 Sensor Respiratory Rate 20 22 Respiratory Effort / Characteristics Non-Labored Respiratory Depth Normal Blood Pressure 163/83 H Blood Pressure Mean 109 Pulse Oximetry 91 96 Oxygen Delivery Method Room Air Oxygen Flow Rate Sepsis Recent Fever Within 48 Hours No Sepsis New/Unexplained Change in Mental Status No Sepsis Action Taken by Nursing No Action Required 07/04/23 18:26 07/04/23 18:30 07/04/23 18:30 Temperature Temperature Source Pulse Rate 82 Pulse Rate from SpO2 Sensor Respiratory Rate 24 Respiratory Effort / Characteristics Respiratory Depth Blood Pressure 156/108 H Blood Pressure Mean 123 Pulse Oximetry 96 95 Oxygen Delivery Method Nasal Cannula Oxygen Flow Rate 2 Sepsis Recent Fever Within 48 Hours Sepsis New/Unexplained Change in Mental Status Sepsis Action Taken by Nursing 07/04/23 18:49 07/04/23 18:49 07/04/23 19:00 Temperature Temperature Source Pulse Rate 86 Pulse Rate from SpO2 Sensor Respiratory Rate 18 Respiratory Effort / Characteristics Respiratory Depth Blood Pressure 171/83 H 182/97 H Blood Pressure Mean 108 137 Pulse Oximetry 95 Oxygen Delivery Method Nasal Cannula Oxygen Flow Rate 2 Sepsis Recent Fever Within 48 Hours Sepsis New/Unexplained Change in Mental Status Sepsis Action Taken by Nursing 07/04/23 19:00 07/04/23 19:30 07/04/23 19:30 Temperature Temperature Source Pulse Rate 83 83 Pulse Rate from SpO2 Sensor Respiratory Rate 20 25 H Respiratory Effort / Characteristics Respiratory Depth Blood Pressure 142/75 H Blood Pressure Mean 119 Pulse Oximetry 99 94 Oxygen Delivery Method Oxygen Flow Rate Sepsis Recent Fever Within 48 Hours Sepsis New/Unexplained Change in Mental Status Sepsis Action Taken by Nursing 07/04/23 20:00 07/04/23 20:00 07/04/23 20:30 Temperature Temperature Source Pulse Rate 82 83 Pulse Rate from SpO2 Sensor Respiratory Rate 23 21 Respiratory Effort / Characteristics Respiratory Depth Blood Pressure 147/84 H Blood Pressure Mean 122 Pulse Oximetry 94 95 Oxygen Delivery Method Nasal Cannula Nasal Cannula Oxygen Flow Rate 2 2 Sepsis Recent Fever Within 48 Hours Sepsis New/Unexplained Change in Mental Status Sepsis Action Taken by Nursing 07/04/23 20:30 07/04/23 20:56 07/04/23 21:00 Temperature 37.8 C H Temperature Source Oral Pulse Rate 84 Pulse Rate from SpO2 Sensor 84 Respiratory Rate 20 Respiratory Effort / Characteristics Respiratory Depth Blood Pressure 162/85 H Blood Pressure Mean 113 Pulse Oximetry 93 Oxygen Delivery Method Oxygen Flow Rate Sepsis Recent Fever Within 48 Hours Sepsis New/Unexplained Change in Mental Status Sepsis Action Taken by Nursing 07/04/23 21:00 07/04/23 21:30 07/04/23 21:31 Temperature Temperature Source Pulse Rate 90 91 H Pulse Rate from SpO2 Sensor Respiratory Rate 22 23 Respiratory Effort / Characteristics Respiratory Depth Blood Pressure 153/81 H Blood Pressure Mean 132 Pulse Oximetry 93 92 Oxygen Delivery Method Nasal Cannula Oxygen Flow Rate 2 Sepsis Recent Fever Within 48 Hours Sepsis New/Unexplained Change in Mental Status Sepsis Action Taken by Nursing 07/04/23 21:31 07/04/23 21:52 07/04/23 22:07 Temperature Temperature Source Pulse Rate 85 86 Pulse Rate from SpO2 Sensor Respiratory Rate Respiratory Effort / Characteristics Respiratory Depth Blood Pressure 156/84 H Blood Pressure Mean 121 Pulse Oximetry Oxygen Delivery Method Oxygen Flow Rate Sepsis Recent Fever Within 48 Hours Sepsis New/Unexplained Change in Mental Status Sepsis Action Taken by Nursing 07/04/23 22:15 07/04/23 22:30 07/04/23 22:30 Temperature Temperature Source Pulse Rate 87 Pulse Rate from SpO2 Sensor Respiratory Rate 26 H Respiratory Effort / Characteristics Spontaneous Respiratory Depth Blood Pressure 156/81 H Blood Pressure Mean 127 Pulse Oximetry 93 Oxygen Delivery Method Nasal Cannula Nasal Cannula Oxygen Flow Rate 2 2 Sepsis Recent Fever Within 48 Hours Sepsis New/Unexplained Change in Mental Status Sepsis Action Taken by Nursing 07/04/23 22:41 Temperature 38.9 C H Temperature Source Oral Pulse Rate Pulse Rate from SpO2 Sensor Respiratory Rate Respiratory Effort / Characteristics Respiratory Depth Blood Pressure Blood Pressure Mean Pulse Oximetry Oxygen Delivery Method Oxygen Flow Rate Sepsis Recent Fever Within 48 Hours Sepsis New/Unexplained Change in Mental Status Sepsis Action Taken by Nursing Laboratory Data 07/04/23 18:18 07/04/23 18:18 Lab Results 07/04/23 07/04/23 07/04/23 Range/Units 18:18 18:24 18:30 WBC 11.00 H (4.8-10.8) K/ul RBC 4.63 L (4.70-6.10) M/uL Hgb 13.8 L (14.0-18.0) g/dl POC Hgb 13.9 L (14.0-18.0) g/dl Hct 41.3 L (42.0-52.0) % POC Hct 41 L (42-52) % MCV 89.2 (80.0-100.0) fL MCH 29.8 (25.0-34.0) pg MCHC 33.4 (32.0-36.0) g/dL RDW Std Deviation 44.7 (36.4-46.3) fL RDW Coeff of Scott 13.7 (11.5-14.5) % Plt Count 123 L (130-400) K/uL MPV 10.9 (9.4-12.4) fL Immature Gran % (Auto) 0.7 % Neut % (Auto) 84.8 % Lymph % (Auto) 5.2 % [place] % (Auto) 8.9 % Eos % (Auto) 0.2 % Baso % (Auto) 0.2 % Neut # (Auto) 9.33 H (1.40-6.50) K/uL Lymph # (Auto) 0.57 L (1.20-3.40) K/uL [place] # (Auto) 0.98 H (0.11-0.59) K/uL Eos # (Auto) 0.02 (0.00-0.50) K/uL Baso # (Auto) 0.02 (0.00-0.20) K/uL Immature Gran # (Auto) 0.08 (0.01-0.20) K/uL PT 10.9 (9.0-12.0) Seconds INR 1.0 (0.9-1.1) APTT 23 (21-31) Seconds PTT Ratio 0.8 POC Sodium 138 (135-144) mmol/L Sodium 138 (136-145) mmol/L POC Potassium 3.7 (3.3-5.0) mmol/L Potassium 3.7 (3.5-5.1) mmol/L POC Chloride 99 L (101-112) mmol/L Chloride 101 (98-107) mmol/L Carbon Dioxide 29 (21-32) mmol/L POC Total CO2 28 (24-31) mmol/L Anion Gap 8 (3-11) POC Anion Gap 15.0 L (16-25) mmol/L POC BUN 10 (7-18) mg/dl BUN 12 (6-23) mg/dl Creatinine 0.75 (0.6-1.4) mg/dl POC Creatinine 0.7 (0.6-1.3) mg/dl Est Cr Clr Drug Dosing 75.7 ml/min Est GFR ( Amer) 95.6 ml/min Est GFR (Non-Af Amer) 82.5 ml/min BUN/Creatinine Ratio 16.0 (10-20) Glucose 112 H (70-99(Fasting)) mg/dl POC Glucose (other) 113 H (70-99) mg/dl Lactate 1.2 (0.4-2.0) mmol/L Calcium 8.1 L (8.6-10.3) mg/dl POC Ioniz Calcium Temo 1.06 L (1.12-1.32) mmol/l Total Bilirubin 1.1 H (0.2-1.0) mg/dl AST 40 H (13-39) U/L ALT 35 (7-52) U/L Alkaline Phosphatase 208 H (34-104) U/L Ammonia 27.0 (18-72) umol/L Troponin I High Sens 16.7 (0-20) pg/ml B-Natriuretic Peptide 130 H (0-100) pg/ml Total Protein 6.3 (6.0-8.3) gm/dl Albumin 3.5 (3.4-5.0) gm/dl Globulin 2.8 (2.5-4.0) gm/dl Albumin/Globulin Ratio 1.3 (0.9-2) Adenovirus (PCR) Not Detected (NotDetected) B. pertussis DNA (PCR) Not Detected (NotDetected) B.parapertussis DNA PCR Not Detected (NotDetected) C. pneumoniae DNA (PCR) Not Detected (NotDetected) Coronavirus OC43 (PCR) Not Detected (NotDetected) Coronavirus HKU1 (PCR) Not Detected (NotDetected) Coronavirus 229E (PCR) Not Detected (NotDetected) SARS-CoV-2 (PCR) DETECTED A* (NotDetected) Coronavirus NL63 (PCR) Not Detected (NotDetected) Human Metapneumovir PCR Not Detected (NotDetected) Influenza Type A (PCR) Not Detected (NotDetected) Influenza Type B (PCR) Not Detected (NotDetected) M. pneumoniae (PCR) Not Detected (NotDetected) Parainfluenza 1 (PCR) Not Detected (NotDetected) Parainfluenza 2 (PCR) Not Detected (NotDetected) Parainfluenza 3 (PCR) Not Detected (NotDetected) Parainfluenza 4 (PCR) Not Detected (NotDetected) RSV (PCR) Not Detected (NotDetected) Entero/Rhino (PCR) Not Detected (NotDetected) Blood Type B Positive Antibody Screen NEGATIVE Administered Medications Discontinued Medications Dexamethasone Sodium Phosphate (DexamethasonePf 10 Mg/Ml Vial) 10 mg IV NOW ONE Stop: 07/04/23 21:49 Last Admin: 07/04/23 22:37 Dose: 10 mg Documented By: NATTY Sodium Chloride (Nss) 500 mls @ 999 mls/hr IV .Q31M MARLA Stop: 07/04/23 18:45 Last Infusion: 07/04/23 19:42 Dose: Infused Documented By: Admin: 07/04/23 18:55 Dose: 999 mls/hr Documented By: DEBBIE Pantoprazole Sodium 40 mg/ (Syringe) 10 mls @ 5 mls/min IV NOW ONE Stop: 07/04/23 18:15 Last Admin: 07/04/23 19:32 Dose: 5 mls/min Documented By: NATTY Famotidine (Pepcid 20mg Iv Push) 20 mg in 5 mls @ 2.5 mls/min IV NOW STA Stop: 07/04/23 18:15 Last Admin: 07/04/23 18:55 Dose: 2.5 mls/min Documented By: DEBBIE Ioversol (Optiray 320 500ml) 85 ml IV ONCE ONE Stop: 07/04/23 18:40 Last Admin: 07/04/23 18:40 Dose: 85 ml Documented By: SONIA Ondansetron HCl (Ondansetron Inj 2 Mg/Ml 2 Ml Vial) 4 mg IV ONE STA Stop: 07/04/23 18:15 Last Admin: 07/04/23 18:31 Dose: 4 mg Documented By: NATTY Tranexamic Acid (Txa 10% Non-Iv Routes 100 Mg/Ml Vial) 500 mg NEB ONE ONE Stop: 07/04/23 18:29 Last Admin: 07/04/23 18:54 Dose: 500 mg Documented By: DEBBIE Imaging Data Radiologist's Impression: Abdomen/Pelvis CT 07/04/23 18:14 Exam(s): CT ABDOMEN + PELVIS With Contrast IV Amt: 85 ml opti 320 EXAM: CT Abdomen and Pelvis With Intravenous Contrast CLINICAL HISTORY: Reason for exam: GI bleed. TECHNIQUE: Axial computed tomography images of the abdomen and pelvis with intravenous contrast. CTDI is 16.62 mGy and DLP is 395.35 mGy-cm. Automated exposure control was utilized for the study. A dose lowering technique was utilized adhering to the principles of ALARA. CONTRAST: Patient received 85 ml opti 320 of IV contrast COMPARISON: None FINDINGS: Lung bases: Please see accompanying CT chest for further details. ABDOMEN: Liver: Hepatic metastases. Mild hepatomegaly. Gallbladder and bile ducts: Unremarkable. No calcified stones. No ductal dilation. Pancreas: Unremarkable. No mass. No ductal dilation. Spleen: Mild calcifications along the spleen. Adrenals: Unremarkable. No mass. Kidneys and ureters: Nonspecific mild bilateral perinephric fat stranding. No hydronephrosis or obstructing stone. Stomach and bowel: Fluid and gas-filled small bowel loops may represent enteritis or ileus in the appropriate clinical setting. Evaluation of the stomach is limited by underdistention. Diverticulosis without evidence of diverticulitis. PELVIS: Appendix: Normal appendix. Bladder: Unremarkable. No mass. Reproductive: Mild prostatomegaly. ABDOMEN and PELVIS: Intraperitoneal space: Unremarkable. No free air. No significant fluid collection. Bones/joints: Age indeterminate compression deformity of T11. Curvature of the spine. Degenerative changes of the spine. No dislocation. Soft tissues: Small fat-containing umbilical hernia. Lipoma the right latissimus dorsi muscle. Vasculature: Phleboliths in the pelvis. Atherosclerotic changes of the vasculature. No aortic aneurysm or dissection. Lymph nodes: Unremarkable. No enlarged lymph nodes. IMPRESSION: 1. Hepatic metastases. Mild hepatomegaly. 2. Fluid and gas-filled small bowel loops may represent enteritis or ileus in the appropriate clinical setting. 3. Age indeterminate compression deformity of T11. Electronically signed by: Nestor Villavicencio M.D. 07/04/23 19:[address] 07/04/23 18:14 Exam(s): CT CHEST With Contrast IV Amt: 85 cc opti 320 EXAM: CT Chest With Intravenous Contrast CLINICAL HISTORY: Reason for exam: GI bleed h/o esophageal varices. TECHNIQUE: Axial computed tomography images of the chest with intravenous contrast. CTDI is 23.94 mGy and DLP is 737.1 mGy-cm. Automated exposure control was utilized for the study. A dose lowering technique was utilized adhering to the principles of ALARA. CONTRAST: Patient received 85 cc opti 320 of IV contrast COMPARISON: CT chest on 01/06/2015 FINDINGS: Lungs: Small calcified pleural calcifications or calcified granulomas along the posterolateral right lung base. Similar perihilar and scattered atelectasis or scarring/posttreatment fibrosis. No focal consolidation. No mass. Pleural space: Unremarkable. No pneumothorax. No significant effusion. Heart: Cardiomegaly. Median sternotomy and CABG changes. Mitral annular calcifications. No significant pericardial effusion. No significant coronary artery calcifications. Mediastinum: Small hiatal hernia. Bones/joints: Age indeterminate compression deformity of T11. Degenerative changes of the spine. No dislocation. Soft tissues: Unremarkable. Vasculature: Unremarkable. No thoracic aortic aneurysm. Lymph nodes: Calcified right hilar lymph nodes. Other: Please see accompanying CT abdomen/pelvis for further details. IMPRESSION: Age indeterminate compression deformity of T11. Similar perihilar and scattered atelectasis or scarring/posttreatment fibrosis. No focal consolidation. Electronically signed by: Nestor Villavicencio M.D. 07/04/23 19:38 PM Chest X-Ray 07/04/23 18:19 XR chest 1V portable CLINICAL HISTORY: coughin up blood TECHNIQUE: Single frontal radiograph of the chest was obtained. Comparison: Comparison is made to chest radiograph 05/11/2021 FINDINGS: Median sternotomy wires are unchanged. Cardiomegaly is noted. The aortic arch is calcified. The lungs are clear. No evidence of pleural effusion or pneumothorax. IMPRESSION: No acute chest disease. Cardiomegaly is noted. ACT 112: Negative or not required by law. Electronically signed by: Dayron Luu M.D. 07/04/2023 6:39 PM Soft Tissue Neck CT 07/04/23 18:27 Exam(s): CT NECK With Contrast IV Amt: 85 ml opti 320 EXAM: CT Neck With Intravenous Contrast CLINICAL HISTORY: Reason for exam: Esophageal varices, hemoptysis. TECHNIQUE: Axial computed tomography images of the neck with intravenous contrast. CTDI is 26.68 mGy and DLP is 1435.39 mGy-cm. Automated exposure control was utilized for the study. A dose lowering technique was utilized adhering to the principles of ALARA. CONTRAST: Patient received 85 ml opti 320 of IV contrast COMPARISON: CT neck on 09/10/2017 FINDINGS: Oropharynx: Unremarkable. No significant tonsillar enlargement. No peritonsillar abscess. Hypopharynx: Unremarkable. Larynx: Unremarkable. Normal epiglottis. Trachea: Unremarkable. Retropharyngeal space: Unremarkable. Submandibular/parotid glands: Unremarkable. Glands are normal in size. Thyroid: Small hypodense nodule in the left thyroid lobe could be further evaluated with ultrasound if clinically indicated. Bones/joints: Degenerative changes of the spine. No acute fracture. Soft tissues: Unremarkable. Vasculature: Atherosclerotic changes of the vasculature. Lymph nodes: Unremarkable. No lymphadenopathy. Lung apices: Unremarkable as visualized. IMPRESSION: No acute findings in the neck. Electronically signed by: Nestor Villavicencio M.D. 07/04/23 20:19 PM Discharge Plan Visit Data Chief Complaint: Cough ED Provider: Gautam Guaman ED Midlevel Provider: Navya Marques Discharge Problem: Hemoptysis, COVID-19 Patient Disposition: Admitted As Inpatient Condition: Good Forms Stand Alone Forms: My [facility] Prescriptions Prescriptions: No Action doxazosin 8 mg tablet 8 mg PO HS finasteride 5 mg tablet 5 mg PO QAM spironolactone 50 mg tablet 25 mg PO DAILY furosemide 20 mg tablet 20 mg PO DAILY Rx Instructions: MAY TAKE ADDITIONAL DOSE IF NEEDED FOR FLUID RETENTION/WT GAIN potassium chloride 10 mEq tablet extended release 30 meq PO QAM omeprazole 20 mg capsule,delayed release(DR/EC) 20 mg PO BID ipratropium-albuterol 0.5 mg-3 mg(2.5 mg base)/3 mL solution for nebulization 3 ml INHALATION BID Rx Instructions: MAY USE UP TO QID PER [facility] prednisone 5 mg tablet 5 mg PO DAILY benazepril 40 mg tablet 40 mg PO DAILY atenolol 50 mg tablet See Rx Instructions .ROUTE .COMPLEX Rx Instructions: TAKES 50 MG QAM, THEN 25 MG QPM. atorvastatin 20 mg tablet 20 mg PO DAILY gabapentin 400 mg capsule 400 mg PO QID fluticasone furoate-vilanterol [Breo Ellipta] 100-25 mcg/dose blister with device 1 ea INHALATION DAILY amlodipine 5 mg tablet 5 mg PO DAILY aspirin [Tucker Low Dose Aspirin] 81 mg Tablet,Delayed Release (Dr/Ec) 81 mg PO DAILY buspirone [BuSpar] 5 mg Tablet 5 mg PO BID lidocaine 4 % Adhesive Patch,Medicated 1 patch TOPICAL DAILY PRN (Reason: Pain) albuterol sulfate [Proventil] 2.5 mg /3 mL (0.083 %) Solution For Nebulization 2.5 mg INHALATION DIRECTED PRN (Reason: Shortness Of Breath Or Wheezing) sennosides-docusate sodium [Senokot-S] 8.6-50 mg Tablet 1 tab-cap PO DAILY PRN (Reason: Constipation) prochlorperazine maleate [Compazine] 10 mg Tablet 10 mg PO Q6H PRN (Reason: NAUSEA/VOMITING) Rx Instructions: PER [facility]--USUALLY TAKES BID ROUTINELY tramadol 50 mg Tablet 50 mg PO Q6H PRN (Reason: Pain, Severe) Rx Instructions: PER [facility]--TAKES TWICE DAILY ROUTINELY acetaminophen [Tylenol Extra Strength] 500 mg Tablet 1,000 mg PO Q8H PRN (Reason: PAIN, BREAKTHROUGH) metoclopramide HCl [Reglan] 5 mg Tablet 5 - 10 mg PO AC benzonatate [Tessalon Perles] 100 mg Capsule 100 - 200 mg PO TID PRN (Reason: Cough) docusate sodium 100 mg Capsule 100 mg PO BID bisacodyl [Dulcolax (bisacodyl)] 5 mg Tablet,Delayed Release (Dr/Ec) 5 mg PO HS PRN (Reason: IF NO BM X 2 DAYS.) polyethylene glycol 3350 [Miralax] 17 gram/dose Powder 17 g PO DAILY PRN (Reason: Constipation) albuterol sulfate 90 mcg/actuation Hfa Aerosol Inhaler 2 puff INHALATION Q4H PRN (Reason: Wheezing) ondansetron [Zofran ODT] 4 mg Tablet,Disintegrating 4 mg PO Q8H PRN (Reason: NAUSEA/VOMITING) olanzapine 5 mg tablet,disintegrating 5 mg translingual QAM cholecalciferol (vitamin D3) [Vitamin D3] 25 mcg (1,000 unit) Capsule 25 mcg PO DAILY diclofenac sodium [Voltaren] 1 % Gel 4 g TOPICAL BID PRN (Reason: LOWER BACK PAIN) Prolia 60 mg/mL Syringe 0 mg SUBCUT .[id number] Referrals Referrals: Mirza Mcgee MD [Primary Care Provider] -
[2023-07-04] MEDS ORDERED: PANTOprazole 40 MG in SYRINGE 0 ML IV ONE (18:14)
[2023-07-04] MEDS ORDERED: ONDANSETRON INJ 2 MG/ML 2 ML VIAL IV STA (18:14)
[2023-07-04] MEDS ORDERED: FAMOTIDINE 20MG IV PUSH 20 MG/5 ML SYR IV STA (18:14)
[2023-07-04] MEDS ORDERED: SODIUM CHLORIDE 0.9% 500 ML IV SCH (18:15)
[2023-07-04] MEDS ORDERED: TXA 10% Non-IV Routes 100 MG/ML VIAL NEB ONE (18:28)
--- NOTE | 2023-07-04 18:31 | Emergency Department Note ---
ED Visit Note Patient is a 8-year-old male with a past medical history of esophageal varices, esophageal cancer, liver cancer who presents to the ER with coughing up blood which started earlier today. He was brought in by EMS. Given TXA through the IV via EMS. Ordered TXA via nebulized treatments here. Patient was placed on Protonix drip and bolus in case this thinks gastric in nature although based on presentation appears to be consistent with hemoptysis. patient is a DNR/DNI. Family expressed an understanding this. Saw and evaluated the patient at bedside. Discussed with family and orders will be placed for CT of the neck chest abdomen pelvis. Nebulizer with TXA. Will be taken emergently to CAT scan following i-STAT which I reviewed. Following the results of CT which I reviewed I discussed with the PA and patient will be admitted to the hospitalist. Currently patient is a DNR/DNI. EXAM: GENERAL: Sitting up in bed, alert, ill-appearing, coughing with vomit bag at bedside with a small amount of blood present in his spit EYE EXAM: normal conjunctiva. OROPHARYNX: Red blood in the posterior pharynx NECK: supple, no nuchal rigidity, no adenopathy, non-tender LUNGS: Rhonchi bilaterally. Normal chest wall mechanics HEART: no murmurs, S1 normal and S2 normal ABDOMEN: abdomen soft, non-tender, normo-active bowel sounds, no masses, no rebound or guarding. UPPER EXTREMITIES: upper extremities are grossly normal. LOWER EXTREMITIES: No pitting edema. NEURO EXAM: Normal sensorium, cranial nerves II-XII grossly intact, normal speech, no gross weakness of arms, no gross weakness of legs. Critical care: I have personally spent 32 minutes of critical care time in the direct manage ment of this patient. This includes bedside care, interpretation of diagnostic studies, and testing, discussion with consultants, patient, and family members, and other required patient management activities. This 32 minutes is in excess of all separately billable procedures. .
[2023-07-04 18:37] LABS: iSTAT Creatinine 0.7 mg/dl (0.6-1.3); iSTAT Hemoglobin 13.9 g/dl (14.0-18.0); iSTAT Ionized Calcium 1.06 mmol/l (1.12-1.32); iSTAT Potassium 3.7 mmol/L (3.3-5.0)
[2023-07-04] MEDS ORDERED: OPTIRAY 320 500ml IV ONE (18:39)
[2023-07-04 18:40] LABS: Basophils # (auto) 0.02 K/uL (0.00-0.20); Basophils % (auto) 0.2 %; Eosinophils # (auto) 0.02 K/uL (0.00-0.50); Eosinophils % (auto) 0.2 %; Hematocrit (blood only) 41.3 % (42.0-52.0); Hemoglobin 13.8 g/dl (14.0-18.0); Immature Granulocytes # (auto) 0.08 K/uL (0.01-0.20); Immature Granulocytes % (auto) 0.7 %; Lymphocytes # (auto) 0.57 K/uL (1.20-3.40); Lymphocytes % (auto) 5.2 %; Mean Corpuscular Hemoglobin 29.8 pg (25.0-34.0); Mean Corpuscular Hgb Conc 33.4 g/dL (32.0-36.0); Mean Corpuscular Volume 89.2 fL (80.0-100.0); Mean Platelet Volume 10.9 fL (9.4-12.4); Monocytes # (auto) 0.98 K/uL (0.11-0.59); Monocytes % (auto) 8.9 %; Neutrophils # (auto) 9.33 K/uL (1.40-6.50); Neutrophils % (auto) 84.8 %; Platelet Count 123 K/uL (130-400); RDW Coefficient of Variation 13.7 % (11.5-14.5); RDW Standard Deviation 44.7 fL (36.4-46.3); Red Blood Count 4.63 M/uL (4.70-6.10)
--- NOTE | 2023-07-04 18:40 | XRay Report ---
XR chest 1V portable CLINICAL HISTORY: coughin up blood TECHNIQUE: Single frontal radiograph of the chest was obtained. Comparison: Comparison is made to chest radiograph 05/11/2021 FINDINGS: Median sternotomy wires are unchanged. Cardiomegaly is noted. The aortic arch is calcified. The lungs are clear. No evidence of pleural effusion or pneumothorax. IMPRESSION: No acute chest disease. Cardiomegaly is noted. ACT 112: Negative or not required by law. Electronically signed by: Dayron Luu M.D. 07/04/2023 6:39 PM
[2023-07-04 18:59] LABS: Albumin Globulin Ratio 1.3 (0.9-2); Albumin Level 3.5 gm/dl (3.4-5.0); Bilirubin,Total 1.1 mg/dl (0.2-1.0); Calcium 8.1 mg/dl (8.6-10.3); Creatinine Clr Calc Pharmacy 75.7 ml/min; Est GFR (African American) 95.6 ml/min; Est GFR (Non-African American) 82.5 ml/min; Globulin 2.8 gm/dl (2.5-4.0); Potassium 3.7 mmol/L (3.5-5.1); Total Protein 6.3 gm/dl (6.0-8.3)
[2023-07-04 19:05] LABS: Troponin I High Sensitivity 16.7 pg/ml (0-20)
[2023-07-04 19:07] LABS: Partial Thromboplastin Ratio 0.8; Partial Thromboplastin Time 23 Seconds (21-31); Prothrombin Time 10.9 Seconds (9.0-12.0)
--- NOTE | 2023-07-04 19:38 | CT Scan Report ---
Exam(s): CT CHEST With Contrast IV Amt: 85 cc opti 320 EXAM: CT Chest With Intravenous Contrast CLINICAL HISTORY: Reason for exam: GI bleed h/o esophageal varices. TECHNIQUE: Axial computed tomography images of the chest with intravenous contrast. CTDI is 23.94 mGy and DLP is 737.1 mGy-cm. Automated exposure control was utilized for the study. A dose lowering technique was utilized adhering to the principles of ALARA. CONTRAST: Patient received 85 cc opti 320 of IV contrast COMPARISON: CT chest on 01/06/2015 FINDINGS: Lungs: Small calcified pleural calcifications or calcified granulomas along the posterolateral right lung base. Similar perihilar and scattered atelectasis or scarring/posttreatment fibrosis. No focal consolidation. No mass. Pleural space: Unremarkable. No pneumothorax. No significant effusion. Heart: Cardiomegaly. Median sternotomy and CABG changes. Mitral annular calcifications. No significant pericardial effusion. No significant coronary artery calcifications. Mediastinum: Small hiatal hernia. Bones/joints: Age indeterminate compression deformity of T11. Degenerative changes of the spine. No dislocation. Soft tissues: Unremarkable. Vasculature: Unremarkable. No thoracic aortic aneurysm. Lymph nodes: Calcified right hilar lymph nodes. Other: Please see accompanying CT abdomen/pelvis for further details. IMPRESSION: Age indeterminate compression deformity of T11. Similar perihilar and scattered atelectasis or scarring/posttreatment fibrosis. No focal consolidation. Electronically signed by: Nestor Villavicencio M.D. 07/04/23 19:38 PM
--- NOTE | 2023-07-04 19:42 | CT Scan Report ---
Exam(s): CT ABDOMEN + PELVIS With Contrast IV Amt: 85 ml opti 320 EXAM: CT Abdomen and Pelvis With Intravenous Contrast CLINICAL HISTORY: Reason for exam: GI bleed. TECHNIQUE: Axial computed tomography images of the abdomen and pelvis with intravenous contrast. CTDI is 16.62 mGy and DLP is 395.35 mGy-cm. Automated exposure control was utilized for the study. A dose lowering technique was utilized adhering to the principles of ALARA. CONTRAST: Patient received 85 ml opti 320 of IV contrast COMPARISON: None FINDINGS: Lung bases: Please see accompanying CT chest for further details. ABDOMEN: Liver: Hepatic metastases. Mild hepatomegaly. Gallbladder and bile ducts: Unremarkable. No calcified stones. No ductal dilation. Pancreas: Unremarkable. No mass. No ductal dilation. Spleen: Mild calcifications along the spleen. Adrenals: Unremarkable. No mass. Kidneys and ureters: Nonspecific mild bilateral perinephric fat stranding. No hydronephrosis or obstructing stone. Stomach and bowel: Fluid and gas-filled small bowel loops may represent enteritis or ileus in the appropriate clinical setting. Evaluation of the stomach is limited by underdistention. Diverticulosis without evidence of diverticulitis. PELVIS: Appendix: Normal appendix. Bladder: Unremarkable. No mass. Reproductive: Mild prostatomegaly. ABDOMEN and PELVIS: Intraperitoneal space: Unremarkable. No free air. No significant fluid collection. Bones/joints: Age indeterminate compression deformity of T11. Curvature of the spine. Degenerative changes of the spine. No dislocation. Soft tissues: Small fat-containing umbilical hernia. Lipoma the right latissimus dorsi muscle. Vasculature: Phleboliths in the pelvis. Atherosclerotic changes of the vasculature. No aortic aneurysm or dissection. Lymph nodes: Unremarkable. No enlarged lymph nodes. IMPRESSION: 1. Hepatic metastases. Mild hepatomegaly. 2. Fluid and gas-filled small bowel loops may represent enteritis or ileus in the appropriate clinical setting. 3. Age indeterminate compression deformity of T11. Electronically signed by: Nestor Villavicencio M.D. 07/04/23 19:42 PM
[2023-07-04 19:47] LABS: Adenovirus PCR Not Detected (NotDetected); Bordetella parapertussis PCR Not Detected (NotDetected); Bordetella pertussis PCR Not Detected (NotDetected); Chlamydia pneumoniae PCR Not Detected (NotDetected); Coronavirus 229E PCR Not Detected (NotDetected); Coronavirus HKU1 PCR Not Detected (NotDetected); Coronavirus NL63 PCR Not Detected (NotDetected); Coronavirus OC43PCR Not Detected (NotDetected); Human Metapneumovirus PCR Not Detected (NotDetected); Influenza A PCR Not Detected (NotDetected); Influenza B PCR Not Detected (NotDetected); Mycoplasma pneumoniae PCR Not Detected (NotDetected); Parainfluenza Virus 1 PCR Not Detected (NotDetected); Parainfluenza Virus 2 PCR Not Detected (NotDetected); Parainfluenza Virus 3 PCR Not Detected (NotDetected); Parainfluenza Virus 4 PCR Not Detected (NotDetected); Respiratory Syncytial VirusPCR Not Detected (NotDetected); Rhinovirus/Enterovirus PCR Not Detected (NotDetected)
[2023-07-04 20:10] LABS: Coronavirus CoV-2 (COVID19)PCR DETECTED (NotDetected)
--- NOTE | 2023-07-04 20:20 | CT Scan Report ---
Exam(s): CT NECK With Contrast IV Amt: 85 ml opti 320 EXAM: CT Neck With Intravenous Contrast CLINICAL HISTORY: Reason for exam: Esophageal varices, hemoptysis. TECHNIQUE: Axial computed tomography images of the neck with intravenous contrast. CTDI is 26.68 mGy and DLP is 1435.39 mGy-cm. Automated exposure control was utilized for the study. A dose lowering technique was utilized adhering to the principles of ALARA. CONTRAST: Patient received 85 ml opti 320 of IV contrast COMPARISON: CT neck on 09/10/2017 FINDINGS: Oropharynx: Unremarkable. No significant tonsillar enlargement. No peritonsillar abscess. Hypopharynx: Unremarkable. Larynx: Unremarkable. Normal epiglottis. Trachea: Unremarkable. Retropharyngeal space: Unremarkable. Submandibular/parotid glands: Unremarkable. Glands are normal in size. Thyroid: Small hypodense nodule in the left thyroid lobe could be further evaluated with ultrasound if clinically indicated. Bones/joints: Degenerative changes of the spine. No acute fracture. Soft tissues: Unremarkable. Vasculature: Atherosclerotic changes of the vasculature. Lymph nodes: Unremarkable. No lymphadenopathy. Lung apices: Unremarkable as visualized. IMPRESSION: No acute findings in the neck. Electronically signed by: Nestor Villavicencio M.D. 07/04/23 20:19 PM
--- OUTSIDE RECORDS SUMMARY | 2023-07-04 20:32 | External Medical Summary | Summary of Care ---
Author Name Unknown Organization [facility] Address [address] [place] [address] Phone [phone] Care Team Providers Care Template Checker Name Role Phone Angel Quinteros DO Primary Care Provider [phone] Reason for Referral * Evaluate & Treat - Unlimited Visits (Within 10 days (routine)) - Authorized Specialty Diagnoses / Procedures Referred By Contac t Referred To Contact Hospice and Palliative Medicine / Palliative Medicine Diagnoses Prostate cancer metastatic to bone (HCC) Valeria Nath MD [address] [place] [address] [place] [address] Referral ID Status Reason Start Date Expiration Date Visits Requested Visits Authorized [id number] Authorized Specialty Services Required 07/04/[phone] Question Answer Referral Priority Within 10 days (routine) Where should this appointment be scheduled? [facility] Reason for Referral: Cancer Palliative Medicine To Address: Goals of Care Is this referral for [facility] at Home Palliative service? ([facility] Insurance Only) Yes Comments Transition from OP Palliative to [facility] Palliative. Already established with [facility] Reason for Visit * Reason Onset Date Comments Palliative Care Follow-up 07/04/2023 Encounter Details Date Type Department Care Team ([facility] st Contact Info) Description 07/04/2023 9:00 AM EST Scheduled Telephone Palliative Medicine, [address] 5th [place] [address] De, Nurse Palliative Medicine [facility] [address]th [address] [place] [phone] Prostate cancer metastatic to bone (HCC)* Allergies Active Allergy Reactions Criticality Noted Date Comments Amoxicillin Rash 09/27/2005 At time of knee replacement Oxycodone Other (Please comment) 10/11/2012 Severe mental change Oxycodone-Acetaminophe n Other (Please comment) 03/15/2010 Severe mental change documented as of this encounter (statuses as of 07/04/2023) Medications Medication Sig Dispensed Refills Start Date End Date Status DIURETIC TITRATION PLAN If no improvement on day 3, contact heart failure managing provider or [facility] at home case management coordinator 1 Each 0 01/30/2019 Active aspirin enteric coated 81 MG TBECIndications:HTN, goal below 140/90 Take one pill daily 100 Tab 3 11/22/2019 Active Additional Information Patient taking differently:, Take one pill daily,Indications: blood pressure, Reported on 05/02/2022 oxygen IN GASIndications:Chron ic respiratory failure with hypoxia (HCC),PHT (pulmonary hypertension) (HCC) 1.5 lpm bled into CPAP and with activity/exertion 1 Each 03/31/2021 Active Potassium Chloride ER 10 MEQ Oral Tablet Extended Release Take 3 Tablets by mouth in the morning. 0 Active Spironolactone 25 MG Oral Tablet (Aldactone)Indicatio ns:HTN, goal below 140/90,Chronic diastolic heart failure (HCC) Take 1/2 tablet daily 45 Tablet 3 09/30/2022 Active Prolia 60 MG/ML Subcutaneous Solution Prefilled Syringe (Denosumab) INJECT 60 MG (1 SYRINGE) UNDER THE SKIN EVERY 6 MONTHS 1 mL 1 10/07/2022 4 Active Benzonatate 100 MG Oral CapsuleIndications:B ronchitis, complicated,Viral URI with cough Take 1-2 capsules three times daily as needed for cough. Do not cut, crush, or chew. 40 Capsule 1 10/06/2022 Active Albuterol Sulfate HFA 108 (90 Base) MCG/ACT Inhalation Aerosol SolutionIndications: Acute bronchitis, antibiotics not indicated Inhale 2 Puffs by mouth every 4 hours as needed for Wheezing. 18 g 3 12/26/2022 Active Fluticasone Furoate-Vilanterol 100-25 MCG/ACT Inhalation Aerosol Powder Breath Activated (BREO ellipta)Indications: Restrictive lung disease INHALE ONE PUFF BY MOUTH EVERY DAY 180 Each 3 11/01/2022 4 Active Gabapentin 400 MG Oral Capsule (Neurontin) TAKE ONE CAPSULE BY MOUTH FOUR TIMES A DAY 400 Capsule 3 10/13/2022 4 Active Benazepril HCl 40 MG Oral Tablet TAKE ONE TABLET BY MOUTH EVERY DAY 90 Tablet 3 09/04/2022 4 Active Atorvastatin Calcium 20 MG Oral Tablet (Lipitor) TAKE ONE TABLET BY MOUTH EVERY DAY 90 Tablet 3 08/22/2022 4 Active Doxazosin Mesylate 8 MG Oral Tablet TAKE ONE TABLET BY MOUTH AT BEDTIME 90 Tablet 3 08/01/2022 4 Active Finasteride 5 MG Oral Tablet (Proscar)Indications :BPH with obstruction/lower urinary tract symptoms TAKE ONE TABLET BY MOUTH EVERY MORNING 90 Tablet 3 08/01/2022 4 Active Atenolol 50 MG Oral Tablet (Tenormin)Indication s:HTN, goal below 140/90,PVC (premature ventricular contraction) TAKE ONE TABLET BY MOUTH EVERY MORNING AND TAKE ONE-HALF TABLET IN THE EVENING 135 Tablet 3 02/08/2023 4 Active Diclofenac Sodium 1 % External Gel (Voltaren) APPLY 4 GRAMS TOPICALLY TO UPPER/LOWER BACK TWO TIMES A DAY NEEDED FOR PAIN 800 g 0 02/24/2023 Active Ipratropium-Albutero l 0.5-2.5 (3) MG/3ML Inhalation Solution (Duoneb)Indications: Wheezing,Bronchitis, complicated INHALE 1 VIAL (3ml) IN NEBULIZER 4 TIMES A DAY. 1080 mL 1 03/08/2023 Active Omeprazole 20 MG Oral Capsule Delayed Release (PriLOSEC) TAKE ONE CAPSULE BY MOUTH TWICE A DAY 180 Capsule 3 04/04/2023 4 Active amLODIPine Besylate 5 MG Oral Tablet (Norvasc)Indications :HTN, goal below 140/90 TAKE ONE TABLET BY MOUTH EVERY DAY 100 Tablet 1 04/24/2023 4 Active Furosemide 20 MG Oral Tablet (Lasix)Indications:H TN, goal below 140/90,Chronic diastolic heart failure (HCC) TAKE ONE TABLET BY MOUTH EVERY MORNING. MAY TAKE ONE ADDITIONAL TABLET NEEDED FOR FLUID RETENTION, WEIGHT GAIN 100 Tablet 3 04/25/2023 4 Active busPIRone HCl 5 MG Oral Tablet (Buspar) Take 1 Tablet by mouth in the morning and 1 Tablet before bedtime. 60 Tablet 6 04/24/2023 Active predniSONE 5 MG Oral Tablet (Deltasone) TAKE ONE TABLET BY MOUTH DAILY 100 Tablet 0 04/26/2023 4 Active CPAP 10 cm every night at bedtime. W/oxygen 1.5 lpm bled into cpap 0 Active Docusate Sodium 100 MG Oral Capsule (Colace) Take 1 Capsule by mouth in the morning and 1 Capsule before bedtime. 30 Capsule 0 05/27/2023 Active Polyethylene Glycol 3350 17 GM Oral Packet (Miralax) Take 1 Packet by mouth in the morning. 14 Each 0 05/27/2023 Active Additional Information Patient taking differently:17 g OralDAILY PRN, Reported on 06/27/2023 traMADol HCl 50 MG Oral Tablet (Ultram)Indications: Prostate cancer metastatic to bone (HCC) Take 1 Tablet by mouth every 6 hours as needed for Pain, Severe. Take 1 tablet every 6 hours around the clock to control pain. 60 Tablet 0 06/08/2023 Active Metoclopramide HCl 5 MG Oral Tablet (Reglan)Indications: Metastases to the liver (HCC) Take 1 or 2 tablets 3 times a day before meals to control nausea. 90 Tablet 3 06/08/2023 Active Ondansetron 4 MG Oral Tablet Disintegrating (Zofran) Dissolve 1 Tablet on tongue every 8 hours as needed for Nausea. 20 Tablet 0 06/13/2023 Active Prochlorperazine Maleate 10 MG Oral Tablet (Compazine) Take 1 Tablet by mouth every 6 hours as needed for Nausea. 20 Tablet 1 06/13/2023 Active Sennosides-Docusate Sodium 8.6-50 MG Oral Tablet (Senokot-S) Take 1 Tablet by mouth daily as needed for Constipation. 30 Tablet 0 06/13/2023 Active Vitamin D 25 MCG (1000 UT) Oral Tablet Take by mouth daily. 0 Active Bisacodyl 5 MG Oral Tablet Delayed Release (Dulcolax) Take 1 Tablet by mouth daily as needed for Constipation. 0 Active Acetaminophen 500 MG Oral Tablet (Tylenol) Take 2 Tablets by mouth every 8 hours as needed for Pain, Breakthrough. 0 Active Lidocaine 4 % External Patch (Aspercreme) Place 1 Patch over 12 hours topically on the skin in the morning. Do not start before June 27, 2023. 30 Patch 0 06/27/2023 Active OLANZapine 5 MG Oral Tablet Disintegrating (zyPREXA zyDIS) Place 1 Tablet on tongue in the morning. 30 Tablet 0 06/26/2023 Active Hospital, Clinic, or Other Facility Administered Medication Ordered Dose Route Frequency Start Date End Date Status Albuterol Sulfate (Proventil) (2.5 MG/3ML) 0.083% inhalation solution 2.5 mgIndications:Disease of lung 2.5 mg NEBULIZER PRN 08/30/2022 08/30/2023 Active Albuterol Sulfate (Proventil) (5 MG/ML) 0.5% *conc* inhalation solution 2.5 mgIndications:Disease of lung 2.5 mg NEBULIZER PRN 08/30/2022 08/30/2023 Active Ranibizumab (Lucentis) intravitreal inj SOSY 0.5 mgIndications:Exudative age-related macular degeneration of right eye with active choroidal neovascularization (HCC) 0.5 mg IZ PRN 09/15/2022 09/15/2023 Active ROPivacaine (Naropin) inj 1.5 mgIndications:Exudative age-related macular degeneration of right eye with active choroidal neovascularization (HCC) 1.5 mg IJ PRN 09/15/2022 09/15/2023 Active documented as of this encounter (statuses as of 07/04/2023) Active Problems Problem Noted Date Diagnosed Date Immunocompromised 06/29/2023 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 06/29/2023 Class 2 severe obesity due t o excess calories with serious comorbidity and body mass index (BMI) of 37.0 to 37.9 in adult 06/29/2023 Hypertensive heart disease w ith chronic diastolic congestive heart failure 06/29/2023 Pulmonary hypertension 06/29/2023 Lumbar degenerative disc disease 06/29/2023 History of Reveles's esophagus 06/29/2023 Intractable nausea and vomiting 06/23/2023 Hypokalemia 06/23/2023 Metastasis to liver 06/23/2023 Neuroendocrine cancer 06/23/2023 Anxiety disorder due to medical condition 2022 Palliative care encounter 06/23/2023 Goals of care, counseling/discussion 06/23/2023 Hypophosphatemia 06/10/2023 UTI (urinary tract infection) 06/10/2023 Intractable nausea and vomiting 05/21/2023 Uncontrolled pain 05/21/2023 Degenerative lumbar spinal stenosis 05/21/2023 DNR (do not resuscitate) 05/21/2023 Constipation 05/21/2023 UTE (hard of hearing) 05/21/2023 Poor vision 05/21/2023 Exudative age-related macula r degeneration, bilateral, with active choroidal neovascularization 10/13/2022 Sacroiliitis 09/07/2021 Type 2 diabetes mellitus wit h stage 3a chronic kidney disease, without long-term current use of insulin 05/04/2020 Overview: Per CKD protocol Chronic respiratory failure with hypoxia 020 SANJEEV on CPAP 04/29/2019 Generalized osteoarthritis 01/04/2019 PVC (premature ventricular contraction) 01/02/20 19 Barretts esophagus 10/09/2018 Steroid-induced diabetes 05/24/2018 Schatzki's ring 04/25/2018 Type 2 diabetes mellitus with diabetic polyneuro adrian 03/07/2018 Chronic diastolic heart failure 03/07/2018 Dysphagia 02/27/2018 Hypokalemia 02/26/2018 Type 2 diabetes mellitus wit h hemoglobin A1c goal of less than 8.0% 11/14/2017 Exudative age-related macula r degeneration of left eye with inactive scar 11/14/2017 Senile osteoporosis 06/28/2017 Prostate cancer metastatic to bone 01/11/2016 History of DVT (deep vein thrombosis) 09/22/2015 PMR (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) 10/18/2012 senior living current use of systemic steroids 10/18 History of Hodgkin's disease 02/19/2012 Gastroesophageal reflux disease without esophagi tis 10/13/2011 KNEE JOINT REPLACEMENT STATUS, R and L 9 SPINAL STENOSIS Mild L4-5 11/28/2007 Disorder of intervertebral disc 12/28/2006 ADVANCE DIRECTIVE INFORMATION 05/10/2005 Overview: No, Advance Directive brochure given to patient. BPH without obstruction/lower urinary tract symp toms 12/22/2003 Dyslipidemia, goal LDL below 70 07/15/2002 HTN, goal below 140/90 HEARING LOSS D-T NOISE Irritable bowel syndrome documented as of this encounter (statuses as of 07/04/2023) Resolved Problems Problem Noted Date Diagnosed Date Resolved Date Chronic obstructive pulmonary disease 04/14/2023 05/11/2023 Overview: Per COPD GOLD Classification Hodgkin lymphoma 02/02/2023 02/02/2023 Chronic ischemic heart disease 10/19/2021 10/13/2022 Sacroiliitis 09/07/2021 01/26/2022 Overview: Duplicated on pl Abnormal radionuclide bone scan 02/16/2021 04/14/2023 Hypertensive heart and kidne y disease with chronic diastolic congestive heart failure and stage 3 chronic kidney disease 09/04/202009/04 Adenomatous polyp of transverse colon 08/18/2020 04/14/2023 Overview: Seen on CT scan 08/16 incidental finding 8mm Anxiety, generalized 03/06/2020 023 Type 2 diabetes mellitus wit h stage 3 chronic kidney disease, without long-term current use of insulin 02/24/2020 05/07/2020 Overview: Per CKD protocol Kidney disease, chronic, sta ge III (GFR 30-59 ml/min) 02/03/2020 2020 Overview: Per CKD protocol COPD, group C, by GOLD 2017 classification 12/03/2018 05/03/2020 Overview: Per COPD GOLD Classification Elevated prostate specific antigen (PSA) 08/11/2018 06/03/2019 Chronic respiratory failure with hypoxia 05/24/2018 08/11/2018 Chronic obstructive pulmonary disease 03/07/2018 12/05/2018 Overview: Per COPD GOLD Classification Chronic diastolic (congestive) heart failure 8 05/24/2018 Rhinovirus infection 02/27/2018 018 Tracheobronchitis 02/27/2018 04/14/2023 Prostatism 02/26/2018 05/24/2018 Acute exacerbation of chroni c obstructive pulmonary disease (COPD) 02/26/2018 03/07/2018 Bilateral leg edema 02/26/2018 04/14/20 Chronic nonspecific lung disease 08/16/2017 02/13/2018 Hodgkin lymphoma, unspecifie d, unspecified site 03/21/2017 08/11/2018 Other seborrheic keratosis 04/16/2014 0 03/21/2017 Neoplasm of uncertain behavior of skin 04/16/2014 03/21/2017 Exudative senile macular deg eneration of retina 08/02/2013 08/16/2017 Osteoporosis 12/24/2012 06/28/2017 Dehydration 10/13/2011 03/21/2017 Dehydration 10/13/2011 02/07/2013 Bone pain 10/13/2011 03/21/2017 Encounter for antineoplastic chemotherapy 08/11/2011 03/21/2017 Hodgkin's lymphoma 07/14/2011 5 Mediastinal mass 06/16/2011 07/14/2011 Retinal edema 04/01/2010 03/21/2017 Phlebitis and thrombophlebit is of other deep vessels of lower extremities 11/24/2008 09/22/2015 Overview: seen at [facility] ER Anemia 05/13/2008 03/21/2017 Osteoarthritis of knee 05/07/200811/28 Backache 11/28/2007 07/19/2017 R>L JOINT PAIN-L-LEG knee 11/28/2007 Bilateral hip JOINT PAIN-PELVIS L>R 11/28/2007 02/13/2018 Benign neoplasm of colon 04/05/2007 Overview: hyperplastic polyps--repeat 5 years Spinal stenosis, unspecified region other than cervical 12/28/2006 11/28/2007 CARPAL TUNNEL SYNDROME, R 05/10/2005 Other visual distortions and entoptic phenomena 05/06/2002 03/21/2017 Nodular prostate without urinary obstruction 2 08/23/2018 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 OSTEOARTHRO NOS-OTH SITE 02/2019 Overview: knees documented as of this encounter (statuses as of 07/04/2023) Immunizations Name Administration Dates Next Due COVID-19 mRNA, LNP-s, No Pre serve, 2-Dose Series (Pfizer) 08/30/2020,08/02/2020 Pneumococcal Conjugate Vacc, 13 Valent (Prevnar) 09/22/2015 Pneumococcal Polysaccharide PPV23 (Pneumovax) 08/21/2001 Season Influenza, Quad, PF, Adjuvanted, 65+ Yrs, IM (FLUAD) 03/06/2020 Seasonal Influenza Virus Vac cine, Unspecified Formulation 03/06/2020,03/01/2019,03/20/2018,05/16,03/24/2016,03/16/2015,03/10/2014 ,04/05/2013,04/02/2012,04/29/2011,03/27,03/17/2009,04/04/2008, 7,05/01/2006,05/10/2005,05/30/2003, Seasonal Influenza, PF, 6 M & above, IM , (FluLaval or Fluzone) 03/01/2019,03/20/2018,05/16/2017 Seasonal Influenza, Quadriva lent Hd (Fluzone Hd) 04/14/2023,03/31/2022,03/23/2021 Seasonal Influenza, Quadriva lent, No Preserve, IM 03/24/2016 Seasonal Influenza, Split, I IV3, With Preserve, Inj 03/16/2015,03/10/2014,04/05/2013,04/02,04/29/2011,04/21/2010,03/17/2009 ,04/04/2008,05/02/2007,05/01/2006,04/26,05/30/2003,07/12/2000 TD - Tetanus/Diptheria (ADULT) 05/30/2003 TDAP (age 10 and older)(Boostrix) 10/04/2012 documented as of this encounter Social History Tobacco Use Types Packs/Day Years Used Date Smoking Tobacco: Never Smokeless Tobacco: Never Alcohol Use Standard Drinks/Week Comments No 0 (1 standard drink = 0.6 oz pur e alcohol) PHQ-2 Answer Date Recorded PHQ Adult Total Score 2 06/29/2023 Hunger Vital Sign Answer Date Recorded Within the past 12 months, y ou worried that your food would run out before you got the money to buy more. Never true 06/29/19 24 Within the past 12 months, t he food you bought just didn't last and you didn't have money to get more. Never true 06/29/2023 Sex and Gender Information Value Date Recorded Sex Assigned at Male 06/10/2023 6:53 AM EST Gender Identity Male 06/10/2023 6:53 AM EST Sexual Orientation Straight 06/10/2023 6: 53 AM EST Job Start Date Occupation Industry Not on file Not on file Not on file documented as of this encounter Functional Status Functional Status Response Date of Assess ment Are you deaf or do you have serious difficulty hearing? No-bilateral hearing aids 06/23/2023 Are you blind or do you have serious difficulty seeing, even when wearing glasses? 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 (5 years old or older) Yes 06/23/2023 Do you have difficulty dress ing or bathing? (5 years old or older) Yes 06/23/2023 Because of a physical, menta l, or emotional condition, do you have difficulty doing errands alone such as visiting a doctor s office or shopping? (15 years old or older) Yes 06/23/2023 Cognitive Status Response Date of Assessm ent Because of a physical, menta l, or emotional condition, do you have serious difficulty concentrating, remembering, or making decisions? (5 years old or older) No 06/23/2023 documented as of this encounter Miscellaneous Notes * Telephone Encounter - Allen Sheridan MD - 07/04/2023 10:05 AM EST Thanks Darcie. [facility]: please schedule with Amador * Telephone Encounter - Katlyn Ortiz LPN - 07/04/2023 9:14 AM EST Palliative f/u phone call Spoke with , Soledad Established with new PCP, they really liked him PCP encouraged patient to follow up with palliative However, states it is becoming more and more difficult to get patient out of the house He is already established with [facility] Offered for patient to transition from OP Palliative to [facility] Palliative would very much like that Will place [facility] Palliative referral FYI to [facility] team is aware someone from [facility] would be calling to schedule a time for [facility] palliative to come out documented in this encounter Plan of Treatment Upcoming Encounters Date Type Department Care Team (Late st Contact Info) Description 07/06/2023 12:40 PM EST Office Visit Podiatry [facility] [address] [place] [address] Felicita Copeland DPM [address] [place] [address] 07/17/2023 4:00 PM EST Home Visit [facility] [address] [place] [address] Emeli Toledo, RN [address] [place] [address] 07/27/2023 12:40 PM EST [place] [place] [phone] Trina Plaza DO [address] [place] [address] 08/03/2023 1:30 PM EST Office Visit Urology Nora Pugh [address] [facility] [address] [place] [address] Ryan Cunningham MD [address] [place] [address] [place] [address] 08/11/2023 1:00 PM EST Office Visit Family Practice [facility] [address] [place] [address] Angel Quinteros, DO [address] [place] [address] 08/14/2023 1:45 PM EST Office Visit Ophthalmology, [facility] [address] [facility] [place] [address] Toney Davis, DO [address] [place] [address] 08/30/2023 1:00 PM EST Nurse Only Ancillary [facility] [address] [place] [address] [place], Nurse Annual Wellness Visit [facility] [address] [place] [address] 09/11/2023 2:00 PM EDT Appointment Radiology, [facility] [address] [place] [phone] 09/11/2023 2:30 PM EDT PulmDiagnostic Pulmonary Function Lab [facility] [address] [place] [address] [place], [facility] [place] [address] 09/11/2023 3:00 PM EDT [facility] [place] [address] [place] [phone] Saul Moscoso MD [address] [place] [address] 10/25/2023 2:40 PM EDT Office Visit Family Practice [facility] [address] [facility] [place], [place] [address] Mirza Mcgee III, MD [address] [facility] [place] [address] 05/02/2024 1:00 PM EST Office Visit Sleep Disorders, [facility] [address] [place] [address] Alesha John MD [address] [facility] [place] [phone] Scheduled Referrals Name Type Priority Associated Diagnoses Orde r Schedule PALLIATIVE CARE REFERRAL OP Referral Within 10 days (routine) Prostate cancer metastatic to bone (HCC) Ordered: 07/04/2023 Health Maintenance Due Date Last Done Comments Zoster Vaccines (1 of 2) 1954 COVID-19 Vaccine (3 - Pfizer risk series) 09/27/2020 08/30/2020, 08/02/2020 Depression Screening 06/29/2024 06/29/2023 DXA Scan 11/02/2024 11/02/2021, 07/27, 04/11/2017, Additional history exists Diabetic Foot Exam Discontinued 12/08/2020, 0 03/06/2020, 03/04/2019, Additional history exists Diabetic Eye Exam Discontinued 10/11/2021, , 07/14/2021, Additional history exists Albumin/Creatinine Ratio Discontinued 10/26/2022, 02/25 Influenza Vaccine (FLU shot) Completed , 03/31/2022, 03/23/2021, Additional history exists documented as of this encounter Medical Devices Implanted Type Area Rail Washer Device Identifier Shelf Expiration Date Model / Serial / Lot Femur Nexgn E Right - [id number] Implanted:Qty: 1 on 05/12/2008 at OR [facility] Right: Knee [employer] 02/24/2018 [id number] / / [id number] Femur Nexgn E Left - [id number] Implanted:Qty: 1 on 11/19/2008 at OR [facility] Left: Knee [employer] [id number] / / [id number] Sut Steel 6 M654g - [id number] Implanted:Qty: 6 on 07/11/2011 at [facility] N/A: Chest DO NOT USE 01/09/2016 / / [id number] [employer]ision Lens [id number] Implanted:Qty: 1 on 11/07/2013 at OR [facility] Right: Eye 06/25/2016 [id number] / [id number] / [id number] documented as of this encounter Visit Diagnoses Diagnosis Prostate cancer metastatic to bone (HCC)- Primary documented in this encounter Advance Directives Latest Code Status on File Code Status Date Activated Date Inactivated Comments No Code 06/23/2023 1:13 PM 06/26/2023 5:03 PM This order reflects the patients wishes and were consensually agreed upon. Question Answer Comments Discussion of Advance Directives occurred with: Patient Code Status History Code Status Date Activated Date Inactivated Comments No Code 06/10/2023 4:43 PM 06/13/2023 5:45 PM Thi s order reflects the patients wishes and were consensually agreed upon. Question Answer Comments Discussion of Advance Directives occurred with: Patient No Code 05/21/2023 9:24 AM 05/27/2023 5:50 PM This order reflects the patients wishes and were consensually agreed upon. Question Answer Comments Discussion of Advance Directives occurred with: Patient Full Code 05/21/2019 3:50 PM 05/21/2019 8:54 PM Thi s order reflects the patients wishes and were consensually agreed upon. Question Answer Comments Discussion of Advance Directives occurred with: Not Discussed Full Code 05/21/2019 3:50 PM 05/21/2019 3:50 PM Thi s order reflects the patients wishes and were consensually agreed upon. Question Answer Comments Discussion of Advance Directives occurred with: Not Discussed Healthcare Agents on File Name Relationship Healthcare Agent Relationship Communication Soledad Peters Spouse Health Care Agen t (per Health Care Power of Dispatcher Radio document) [email or web address] Huma Hernández Adult Child First Alternate Health Care Agent (per Health Care Power of Dispatcher Radio document) [email or web address] Care Teams Template Checker Relationship Specialty Start Date End Date Angel Quinteros DO [address] [place] [phone] PCP - General Family Medicine 06/14/23 documented as of this encounter
--- OUTSIDE RECORDS SUMMARY | 2023-07-04 20:32 | External Medical Summary | Summary of Care ---
Author Name Unknown Organization [facility] Address [address] [place] [address] Phone [phone] Care Team Providers Care Laboratory Development Technician Name Role Phone Angel Quinteros DO Primary Care Provider [phone] Reason for Referral * Evaluate & Treat - Unlimited Visits (Within 10 days (routine)) - Authorized Specialty Diagnoses / Procedures Referred By Contac t Referred To Contact Hospice and Palliative Medicine / Palliative Medicine Diagnoses Prostate cancer metastatic to bone (HCC) Valeria Nath MD [address] [place] [address] [place] [address] Referral ID Status Reason Start Date Expiration Date Visits Requested Visits Authorized [id number] Authorized Specialty Services Required 07/04/2023 999 999 Question Answer Referral Priority Within 10 days (routine) Where should this appointment be scheduled? [facility] Reason for Referral: Cancer Palliative Medicine To Address: Goals of Care Is this referral for [facility] at Home Palliative service? ([facility] Insurance Only) Yes Comments Transition from OP Palliative to [facility] Palliative. Already established with [facility] Reason for Visit * Reason Onset Date Comments Palliative Care Follow-up 07/04/2023 Encounter Details Date Type Department Care Team ([facility] st Contact Info) Description 07/04/2023 9:00 AM EST Scheduled Telephone Palliative Medicine, [address] 5th [place] [address] [place], Nurse Palliative Medicine [facility] 5th [address] [place] [phone] Prostate cancer metastatic to bone (HCC)* Allergies [...] failure managing provider or [facility] at home casework supervisor 1 Each 0 01/30/2019 Active aspirin enteric [...] DNR (do not resuscitate) 05/21/2023 Constipation 05/21/2023 KAIBAB (hard of hearing) 05/21/2023 Poor vision 05/21/2023 [...] vein thrombosis) 09/22/2015 PMR (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) 10/18/2012 longterm current use of systemic steroids 10/18 History [...] lower extremities 11/24/2008 09/22/2015 Overview: seen at [facility] ER Anemia 05/13/2008 03/21/2017 Osteoarthritis of [...] Pneumococcal Conjugate Vacc, 13 Valent (Prevnar) 09/22/2015 Season Influenza, Quad, PF, Adjuvanted, 65+ Yrs, IM (FLUAD) 03/06/2020 Seasonal Influenza Virus Vac cine, Unspecified Formulation 03/06/2020,03/01/2019,03/20/2018,2016,03/24/2016,03/16/2015,03/10/2014,1 ,04/02/2012,04/29/2011, 010,03/17/2009,04/04/2008,05/02/2007,,05/10/2005,05/30/2003,07/12/19 01 Seasonal Influenza, PF, 6 M & above, IM , (FluLaval or Fluzone) 03/01/2019,03/20/2018,05/16/2017 Seasonal Influenza, Quadriva lent Hd (Fluzone Hd) 04/14/2023,03/31/2022,03/23/2021 Seasonal Influenza, Quadriva lent, No Preserve, IM 03/24/2016 Seasonal Influenza, Split, I IV3, With Preserve, Inj 03/16/2015,03/10/2014,04/05/2013,2011,04/29/2011,04/21/2010,03/17/2009,1 ,05/02/2007,05/01/2006 TDAP (age 10 and older)(Boostrix) 10/04/2012 documented [...] encounter Miscellaneous Notes * Telephone Encounter - Katlyn Ortiz LPN - 07/04/2023 9:14 AM EST Palliative f/u phone call Spoke with , Soledad Established with new PCP, they really liked him PCP encouraged patient to follow up with palliative However, states it is becoming more and more difficult to get patient out of the house He is already established with [facility] Offered for patient to transition from OP Palliative to [facility] Palliative would very much like that Will place [facility] Palliative referral FYI to [facility] team is aware someone from [facility] would be calling to schedule a time for [facility] palliative to come out documented in this encounter Plan of Treatment Upcoming Encounters Date Type Department Care Team (Late st Contact Info) Description 07/06/2023 12:40 PM EST Office Visit Podiatry [facility] [address] [place] [address] Felicita Copeland DPM [address] [place] [address] 07/17/2023 4:00 PM EST [facility] Visit [facility] [address] [place] [address] Emeli Toledo RN [address] [place] [address] 07/27/2023 12:40 PM EST Office Visit Gastroenterology, [address] [phone] Trina Plaza, [address] [place] [address] 08/03/2023 1:30 PM EST Office Visit Urology Nora Pugh [address] [place] [address] [place] [address] Ryan Cunningham MD [address] [place] [address] [place] [address] 08/11/2023 1:00 PM EST Office Visit Family Practice [address] [place] [address], [place] [address] [place] [address] Angel Quinteros DO [address] [place] [phone] 08/14/2023 1:45 PM EST Office Visit Ophthalmology, [facility] [address] [place] [address] Toney Davis DO [address] [place] [address] 08/30/2023 1:00 PM EST Nurse Only Ancillary [address] [place] [address] [place] [address] [place], Nurse Annual Wellness Visit [address] [place] [address] 09/11/2023 2:00 PM EDT Appointment Radiology, [address] [place] [address] 09/11/2023 2:30 PM EDT PulmDiagnostic Pulmonary Function Lab [facility] [address] [facility] [address] [place], [address] [place] [address] 09/11/2023 3:00 PM EDT Office Visit Pulmonary Medicine [facility] [address] [place] [phone] Saul Moscoso MD [address] [facility] [place] [address] 10/25/2023 2:40 PM EDT Office Visit Family Practice [facility] [address] [facility] [address] Mirza Mcgee III, MD [address] [facility] [place] [address] 05/02/2024 1:00 PM EST Office Visit Sleep Disorders, [address] [address] Alesha John MD [address] [place] [address] [place] [address] Scheduled Referrals Name Type Priority Associated Diagnoses [...] this encounter Medical Devices Implanted Type Area Production Honing Machine Operator Device Identifier Shelf Expiration Date Model / Serial / Lot Femur Nexgn E Right - [id number] Implanted:Qty: 1 on 05/12/2008 at [place] [facility] Right: Knee [employer] 02/24/2018 00-5996-015 [id number] / / [id number] Femur Nexgn E Left - [id number] Implanted:Qty: 1 on 11/19/2008 at [place] [facility] Left: Knee [employer] [id number] -[id number] / / [id number] Sut Steel 6 M654g - [id number] Implanted:Qty: 6 on 07/11/2011 at [place] [facility] N/A: Chest DO NOT USE 01/09/2016 / / [id number] [employer] Lens Mi60l Implanted:Qty: 1 on 11/07/2013 at OR [facility] Right: Eye 06/25/2016 [id number] / [id number] / [id number] documented as of this encounter Visit Diagnoses [...] Agen t (per Health Care Power of Sanitation Officer document) [email or web address] Adult Child First Alternate Health Care Agent (per Health Care Power of Sanitation Officer document) [email or web address] Teams Laboratory Development Technician Relationship Specialty Start Date End Date Angel Quinteros DO [address] [place] [phone] PCP - General Family Medicine 06/14/23 documented as of this encounter
--- OUTSIDE RECORDS SUMMARY | 2023-07-04 20:33 | External Medical Summary | Summary of Care ---
Author Name Unknown Organization [facility] Address [address] [place] [address] Phone [phone] Care Team Providers Care Mold Shifter Name Role Phone Angel Quinteros DO Primary Care Provider [phone] Reason for Visit * Reason Onset Date Comments Insurance 06/29/2023 Encounter Details Date Type Department Care Team (Late st Contact Info) Description 06/29/2023 Telephone Family Practice [address] [facility] [place] [address] [place] [address] Angel Quinteros DO [address] [place] [phone] Insurance Allergies Active Allergy Reactions Criticality Noted Date Comments Amoxicillin Rash 09/27/2005 At time of knee replacement Oxycodone Other (Please comment) 10/11/2012 Severe mental change Oxycodone-Acetaminophe n Other (Please comment) 03/15/2010 Severe mental change documented as of this encounter (statuses as of 06/29/2023) Medications Medication Sig Dispensed Refills Start Date End Date Status DIURETIC TITRATION PLAN If no improvement on day 3, contact heart failure managing provider or [facility] at home porter sample case 1 Each 0 01/30/2019 Active aspirin enteric [...] as of this encounter (statuses as of 06/29/2023) Active Problems Problem Noted Date Diagnosed Date Non-Hodgkin's lymphoma 06/29/2023 Immunocompromised 06/29/2023 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 06/29/2023 Class 2 severe obesity due t o excess calories with serious comorbidity and body mass index (BMI) of 37.0 to 37.9 in adult 06/29/2023 Intractable nausea and vomiting 06/23/2023 Hypokalemia 06/23/2023 Metastasis to liver 06/23/2023 Neuroendocrine cancer 06/23/2023 Anxiety disorder due to medical condition 2022 Palliative care encounter 06/23/2023 Goals of care, counseling/discussion 06/23/2023 Hypophosphatemia 06/10/2023 UTI (urinary tract infection) 06/10/2023 Intractable nausea and vomiting 05/21/2023 Uncontrolled pain 05/21/2023 Degenerative lumbar spinal stenosis 05/21/2023 DNR (do not resuscitate) 05/21/2023 Constipation 05/21/2023 AK CHIN (hard of hearing) 05/21/2023 Poor vision 05/21/2023 COPD, group C, by GOLD 2017 classification 05/08 Overview: Per COPD GOLD Classification Exudative age-related macula r degeneration, bilateral, with active choroidal neovascularization 10/13/2022 Sacroiliitis 09/07/2021 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 09/04/2020 Type 2 diabetes mellitus wit h stage 3a chronic kidney disease, without long-term current use of insulin 05/04/2020 Overview: Per CKD protocol Chronic respiratory failure with hypoxia 020 SANJEEV (obstructive sleep apnea) 04/29/2019 Generalized osteoarthritis 01/04/2019 PVC (premature ventricular [...] vein thrombosis) 09/22/2015 PMR (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) 10/18/2012 continuous churn buttermaker current use of systemic steroids 10/18 History [...] as of this encounter (statuses as of 06/29/2023) Resolved Problems Problem Noted Date Diagnosed Date [...] 02/26/2018 03/07/2018 Bilateral leg edema 02/26/2018 04/14/20 23 Chronic nonspecific lung disease 08/16/2017 02/13/2018 Hodgkin [...] lower extremities 11/24/2008 09/22/2015 Overview: seen at [facility] ER Anemia 05/13/2008 03/21/2017 Osteoarthritis of [...] obstruction 2 08/23/2018 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 [facility] S[facility] 02/2019 Overview: knees documented as of this encounter (statuses as of 06/29/2023) Immunizations Name Administration Dates Next Due COVID-19 mRNA, LNP-s, No Pre serve, 2-Dose Series (Medifocus) 08/30/2020,08/02/2020 Pneumococcal Conjugate Vacc, 13 Valent (Prevnar) [...] Answer Date Recorded PHQ Adult Total Score 8 02/02/2023 Hunger Vital Sign Answer Date Recorded Within [...] encounter Miscellaneous Notes * Telephone Encounter - Amalia Ramos OSA - 06/29/2023 2:48 PM EST Discussed GOLD requirement, patient acknowledges and understands. documented in this encounter Plan of Treatment Upcoming Encounters Date Type Department Care Team (Late st Contact Info) Description 07/03/2023 9:00 AM EST Scheduled Telephone Palliative Medicine, [address]th [place] [address] [place], Nurse Palliative Medicine [address] [place] [address] 07/03/2023 2:00 PM EST Office Visit Ophthalmology, [facility] [address] [place] [address] Toney Davis, [address] [place] [address] 07/06/2023 12:40 PM EST Office Visit Podiatry [facility] [address] [place] [address] Felicita Copeland DPM [address] [place] [address] 07/17/2023 4:00 PM EST Home Visit [facility] [address] [place] [address] Emeli Toledo, RN [address] [place] [address] 07/27/2023 12:40 PM EST Office Visit Gastroenterology, [facility] [address] [place] [address] Trina Plaza, [address] [place] [address] 08/03/2023 1:30 PM EST Office Visit Urology [address] [place] [address] [place] [address] Ryan Cunningham MD [address] [address] [place] [address] 08/11/2023 1:00 PM EST Office Visit Family Practice [address] [facility] [place] [address] [place] [phone] Angel Quinteros DO [address] [place] [address] 08/30/2023 1:00 PM EST Nurse Only Ancillary [address] [place] [phone] [place], Nurse Annual Wellness Visit [address] [place] [phone] 09/11/2023 2:00 PM EDT Appointment Radiology, [address] [place] [phone] 09/11/2023 2:30 PM EDT PulmDiagnostic Pulmonary Function Lab [facility] [address] [place] [address] [place], [address] [place] [address] 09/11/2023 3:00 PM EDT Office Visit Pulmonary Medicine [facility] [address] [place] [phone] Saul Moscoso MD [address] [place] [address] 10/25/2023 2:40 PM EDT Office Visit Family Practice [facility] [address] [facility] [place] [address] Mirza Mcgee III, MD [address] [facility] [place] [address] 05/02/2024 1:00 PM EST Office Visit Sleep Disorders, [facility] [address] [facility] [address] Alesha John MD [address] [place], [place] [phone] Health Maintenance Due Date Last Done Comments Zoster Vaccines (1 of 2) 1954 COVID-19 Vaccine (3 - Pfizer risk series) 09/27/2020 08/30/2020, 08/02/2020 Depression Screening 02/03/2024 06/29/2023 O2 ASSESSMENT COMPLETED IN P AST YEAR FOR COPD 06/27/2024 06/29/2023 DXA Scan 11/02/2024 11/02/2021, 07/27, 04/11/2017, Additional history exists Diabetic Foot Exam Discontinued 12/08/2020, 0 03/06/2020, 03/04/2019, Additional history exists Diabetic Eye Exam Discontinued 10/11/2021, , 07/14/2021, Additional history exists Albumin/Creatinine Ratio Discontinued 10/26/2022, 02/25 Influenza Vaccine (FLU shot) Completed , 03/31/2022, 03/23/2021, Additional history exists documented as of this encounter Medical Devices Implanted Type Area Clinical Laboratory Service Teacher Device Identifier Shelf Expiration Date Model / Serial / Lot Femur Nexgn E Right - [id number] Implanted:Qty: 1 on 05/12/2008 [place] [facility] [place]: Knee [employer] 02/24/2018 [id number] -[id number] / / [id number] Femur Nexgn E Left - [id number] Implanted:Qty: 1 on 11/19/2008 at [place] [facility] [place] Left: Knee [employer] [id number] -[id number] / / [id number] Sut Steel 6 M654g - [id number] Implanted:Qty: 6 on 07/11/2011 at [place] [facility] [place] N/A: Chest DO NOT USE 01/09/2016 / / [id number] Ak[employer]ision Lens Mi60l Implanted:Qty: 1 on 11/07/2013 at OR [facility] Right: Eye 06/25/2016 [id number] / [id number] / [id number] documented as of this encounter Advance Directives Latest Code Status [...] Agen t (per Health Care Power of Efficiency Miner Blasting document) [email or web address] Adult Child First Alternate Health Care Agent (per Health Care Power of Efficiency Miner Blasting document) [email or web address] Mold Shifter Relationship Specialty Start Date End Date Angel Quinteros DO [address] [place] [phone] PCP - General Family Medicine 06/14/23 documented as of this encounter
--- OUTSIDE RECORDS SUMMARY | 2023-07-04 20:33 | External Medical Summary | Summary of Care ---
Author Name Unknown Organization [facility] Address [address] [place] [address] Phone [phone] Care Team Providers Care Coconut Boiler Name Role Phone Angel Quinteros DO Primary Care Provider [phone] Reason for Referral * Evaluate & Treat - Unlimited Visits (Within 10 days (routine)) - Authorized Specialty Diagnoses / Procedures Referred By Contjavi jimenez Referred To Contact HOME CARE / Home Care Diagnoses Neuroendocrine cancer (HCC) Prostate cancer metastatic to bone (HCC) Angel Quinteros DO [address] [place] [id number] Referral ID Status Reason Start Date Expiration Date Visits Requested Visits Authorized [id number] Authorized Specialty Services Required 06/30/2023 999 999 Question Answer Referral Priority Within 10 days (routine) Where should this appointment be scheduled? [facility] Comments Resumption of care. Documentation of Gjmy-wf-Xktq Encounter Addendum Patient Name: Dedrick Peters I certify that this patient is under my care and that I, or a nurse practitioner or physician's bilingual sales assistant working with me, had a daat-gx-fiia encounter that meets the physician hwbu-vr-riej encounter requirements with this patient on: 06/29/2023 The encounter with the patient was in whole, or in part, for the following medical condition, which is the primary reason for home health care (List medical condition): Medication management I certify that, based on my findings, the following services are medically necessary home health services: Nursing and Physical Therapy To provide the following care/treatments: (All hospitalists not following the patient after discharge should complete this section): Primary Care Physician to follow home care plan of care after discharge: Dr Quinteros My clinical findings support the need for the above services because: Further, I certify that my clinical findings support that this patient is homebound (i.e. Absences from home require considerable and taxing effort and are for medical reasons or episcopalian services or infrequently or of short duration when for other reason) because: Physician Signature: Date of Signature: Physician Printed Name: Angel Quinteros DO Reason for Visit * Reason Onset Date Comments Order Request 06/30/2023 Encounter Details Date Type Department Care Team (Late st Contact Info) Description 06/30/2023 Telephone Family Practice [address] [facility], [place] [address] [place] [phone] Angel Quinteros DO [address] [place] [id number] Order Request Allergies Active Allergy Reactions Criticality Noted Date Comments Amoxicillin Rash 09/27/2005 At time of knee replacement Oxycodone Other (Please comment) 10/11/2012 Severe mental change Oxycodone-Acetaminophe n Other (Please comment) 03/15/2010 Severe mental change documented as of this encounter (statuses as of 06/30/2023) Medications Medication Sig Dispensed Refills Start Date End Date Status DIURETIC TITRATION PLAN If no improvement on day 3, contact heart failure managing provider or [facility] at home case checker 1 Each 0 01/30/2019 Active aspirin enteric [...] as of this encounter (statuses as of 06/30/2023) Active Problems Problem Noted Date Diagnosed Date [...] DNR (do not resuscitate) 05/21/2023 Constipation 05/21/2023 [place] (hard of hearing) 05/21/2023 Poor vision 05/21/2023 [...] vein thrombosis) 09/22/2015 PMR (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) 10/18/2012 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 current 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 of systemic steroids 10/18 History [...] as of this encounter (statuses as of 06/30/2023) Resolved Problems Problem Noted Date Diagnosed Date [...] lower extremities 11/24/2008 09/22/2015 Overview: seen at [facility] ER Anemia 05/13/2008 03/21/2017 Osteoarthritis of knee [...] obstruction 2 08/23/2018 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 [facility] SITE 02/2019 Overview: knees documented as of this encounter (statuses as of 06/30/2023) Immunizations Name Administration Dates Next Due COVID-19 mRNA, LNP-s, No Pre serve, 2-Dose Series (Pfizer) 08/30/2020,08/02/2020 Pneumococcal Conjugate Vacc, 13 Valent (Prevnar) 09/22/2015 Season Influenza, Quad, PF, Adjuvanted, 65+ Yrs, IM (FLUAD) 03/06/2020 Seasonal Influenza Virus Vac cine, Unspecified Formulation 03/06/2020,03/01/2019,03/20/2018,2016,03/24/2016,03/16/2015,03/10/2014,1 ,04/02/2012,04/29/2011, 010,03/17/2009,04/04/2008,05/02/2007,,05/10/2005,05/30/2003,07/12/19 Seasonal Influenza, PF, 6 M & above, [...] encounter Miscellaneous Notes * Telephone Encounter - Ivania Thompson LPN - 06/30/2023 11:27 AM EST Faxed as requested. * Telephone Encounter - Angel Quinteros DO - 06/30/2023 11:15 AM EST Home health order authorized per request * Telephone Encounter - Amalia Ramos OSA - 06/30/2023 9:34 AM EST Kely with with [facility] called. [facility] is to be going out and seeing the patient today. They need a resumption of care order to be faxed to [phone] ATTN Diana. Any questions call Diana at [phone] documented in this encounter Plan of Treatment Upcoming Encounters Date Type Department Care Team (Late st Contact Info) Description 07/03/2023 9:00 AM EST Scheduled Telephone Palliative Medicine, [address] 5th Floor [place] [address] [place], Nurse Palliative Medicine [facility] [address]th [address] [place] [address] 07/03/2023 2:00 PM EST Office Visit Ophthalmology, [facility] [address] [place] [address] Toney Davis DO [address] [place], [place] [address] 07/06/2023 12:40 PM EST Office Visit Podiatry [facility] [address] [facility] [place] [address] Felicita Copeland DPM [address] [place] [address] 07/17/2023 4:00 PM EST [facility] [address] [place] [address] Emeli Toledo, RN [address] [place] [address] 07/27/2023 12:40 PM EST [facility] [place] [address] Trina Plaza, DO [address] [place] [address] 08/03/2023 1:30 PM EST Office Visit Urology Nora Pugh [address] [place] [address] [place] [address] Ryan Cunningham MD [address] [place] [address] [place] [address] 08/11/2023 1:00 PM EST Office Visit Family Practice [address], [place] [address] [place] [address] Angel Quinteros DO [address] [place] [address] 08/30/2023 1:00 PM EST Nurse Only Ancillary [address] [place] [address] [place] [address] [place], Nurse Annual Wellness Visit [address] [place] [address] 09/11/2023 2:00 PM EDT Appointment Radiology, [address] [phone] 09/11/2023 2:30 PM EDT PulmDiagnostic Pulmonary Function Lab [facility] [address] [place] [address] [place], [address] [facility] [address] 09/11/2023 3:00 PM EDT Office Visit Pulmonary Medicine [facility] [address] [place] [phone] Saul Moscoso MD [address] [facility] [place] [address] 10/25/2023 2:40 PM EDT Office Visit [facility] [address] [facility] [place] [address] Mirza Mcgee III, MD [address] [facility] [place] [address] 05/02/2024 1:00 PM EST Office Visit Sleep Disorders, [address] [address] Alesha John MD [address] [place] [id number] Scheduled Referrals Name Type Priority Associated Diagnoses Orde r Schedule HOME HEALTH REFERRAL OP Referral Within 10 days (routine) Neuroendocrine cancer (HCC) Prostate cancer metastatic to bone (HCC) Ordered: 06/30/2023 Health Maintenance Due Date Last Done Comments [...] this encounter Medical Devices Implanted Type Area Manager Fine Dining Device Identifier Shelf Expiration Date Model / Serial / Lot Femur Nexgn E Right - [id number] Implanted:Qty: 1 on 05/12/2008 at OR [facility] Right: Knee [employer] 02/24/2018 [id number] / / [id number] Femur Nexgn E Left - [id number] Implanted:Qty: 1 on 11/19/2008 at OR [facility] Left: Knee [employer] [id number] / / [id number] Sut Steel 6 [id number] - [id number] Implanted:Qty: 6 on 07/11/2011 at OR [facility] N/A: Chest DO NOT USE 01/09/2016 / / [id number] [employer] Micro [employer]ision Lens [id number] Implanted:Qty: 1 on 11/07/2013 at OR [facility] Right: Eye 06/25/2016 [id number] / [id number] / [id number] documented as of this encounter Visit Diagnoses Diagnosis Neuroendocrine cancer (HCC)- Primary Malignant poorly differentiated neuroendocrine carcinoma, 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
--- OUTSIDE RECORDS SUMMARY | 2023-07-04 20:33 | External Medical Summary | Summary of Care ---
Author Name Unknown Organization [facility] Address [address] [place] [address] Phone [phone] Care Team Providers Care Bead Stringer Name Role Phone Angel Quinteros DO Primary Care Provider Reason for Visit * Reason Comments NEW PATIENT Encounter Details Date Type Department Care Team (Latest Contact Info) Description 06/29/2023 1:00 PM EST Office Visit Family Practice [facility], [place] [address] [place] [address] Angel Quinteros DO [address] [place] [address] Neuroendocrine cancer (HCC)*; Prostate cancer metastatic to bone (HCC); History of Hodgkin's disease; History of Reveles's esophagus; Hypertensive heart disease with chronic diastolic congestive heart failure (HCC); Chronic respiratory failure with hypoxia (HCC); Pulmonary hypertension (HCC); SANJEEV on CPAP; Type 2 diabetes mellitus with diabetic polyneuropathy, without long-term current use of insulin (HCC); Type 2 diabetes mellitus with hemoglobin A1c goal of less than 8.0% (HCC); PMR (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) (HCC); Lumbar degenerative disc disease; Immunocompromised (HCC); 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); Class 2 severe obesity due to excess calories with serious comorbidity and body mass index (BMI) of 37.0 to 37.9 in adult ; Risk and functional assessment Allergies Active Allergy Reactions Criticality Noted Date [...] 3, contact heart failure managing provider or [facility] home casework manager 1 Each 0 01/30/2019 Active aspirin enteric [...] DNR (do not resuscitate) 05/21/2023 Constipation 05/21/2023 LIME (hard of hearing) 05/21/2023 Poor vision 05/21/2023 [...] vein thrombosis) 09/22/2015 PMR (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) 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 10/18 History [...] lower extremities 11/24/2008 09/22/2015 Overview: seen at [facility] Anemia 05/13/2008 03/21/2017 Osteoarthritis of knee [...] obstruction 2 08/23/2018 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 OSTEOARTHRO NOS-OT SITE 02/2019 Overview: knees documented as of [...] Date Smoking Tobacco: Never Smokeless Tobacco: Never Tobacco Cessation:Counseling Given: Yes Alcohol Use Standard Drinks/Week Comments No 0 [...] on file documented as of this encounter Last Filed Vital Signs Vital Sign Reading Time Taken Comments Blood Pressure 106/68 06/29/2023 12:59 PM EST Pulse 62 06/29/2023 12:59 PM EST Temperature 36.4 C (97.6 F) 06/29/2023 12:[address] Respiratory Rate - - Oxygen Saturation 97% 06/29/2023 12:59 PM EST Inhaled Oxygen Concentration - - Weight 96.3 kg (212 lb 6.4 oz) 06/29/2023 12:59 PM EST Height 169.5 cm (5' 6.75") 06/29/2023 12:[address] Body Mass Index 33.52 06/29/2023 12:59 PM EST documented in this encounter Functional Status Functional Status Response [...] No 06/23/2023 documented as of this encounter Patient Instructions * Patient Instructions* Ivania Thompson LPN - 06/29/2023 12:48 PM EST Patient Instructions - Fall Prevention (This education is for all patients over 65 regardless of symptoms) Remember to take your current medications as prescribed. In order to prevent falls, you are encouraged to: Exercise Utilize assistive/adaptive devices Avoid multifocal lenses when walking Avoid hazards in home Maintain a regular toileting schedule Any questions please contact our office. Preventing Falls in the Home (This education is for all patients over 65 regardless of symptoms) As you get older, falls are more likely. Thats because your reaction time slows. Your muscles and joints may also get stiffer, making them less flexible. Illness, medications, and vision changes can also affect your balance. A fall could leave you unable to live on your own. To make your home safer, follow these tips: Floors Put nonskid pads under area rugs Remove throw rugs Replace worn floor coverings Tack carpets firmly to each step on carpeted stairs. Put nonskid strips on the edges of uncarpeted stairs Keep floors and stairs free of clutter and cords Arrange furniture so there are clear pathways Clean up any spills right away Bathrooms Install grab bars in the tub or shower Apply nonskid strips or put a nonskid rubber mat in the tub or shower Sit on a bath chair to bathe Use bathmats with nonskid backing Lighting Keep a flashlight in each room Put a nightlight along the pathway between the bedroom and the bathroom Barbie Patient Education Copyright 2008 - 2010 Barbie except where otherwise noted Preventing Falls: Exercises to Improve Balance, Flexibility, Strength, and Staying Power (This education is for all patients over 65 regardless of symptoms) Certain types of exercises may help make you less likely to fall. Try the ones below. Or do other exercises that your healthcare provider suggests. Depending on your health, you may need to start slowly. Dont let that stop you. Even small amounts of exercise can help you. Be sure to talk to yourhealthcare provider before starting any exercise program. Improve Balance Many types of exercise can help improve balance. Yomi chi and yoga are good examples. Heres another one to try. You can do it anytime and almost anywhere. Stand next to a counter or solid support. Push yourself up onto your tiptoes. Hold for 5 seconds. If you start to lose your balance, hold on to the counter. Rest and repeat 5 times. Work up to holding for 20 to 30 seconds, if you can. Increase Flexibility Being more flexible makes it easier for you to move around safely. Try exercises like the seated hamstring stretch. Sit in a chair and put one foot on a stool. Straighten your leg and reach with both hands down either side of your leg. Reach as far down your leg as you can. Hold for about 20 seconds. Go back to the starting position. Then repeat 5 times. Switch legs. Build Strength Resistance exercises help build strength. You can do them without equipment. Or you can use weights, elastic bands, or special machines. One such exercise is called the biceps curl. You can hold a 1 pound weight or even a can of soup. Do this exercise at least 3 times a week. Strive for everyday. Sit up straight in a chair. Keep your elbow close to your body and your wrist straight. Bend your arm, moving your hand up to your shoulder. Then slowly lower your arm. Repeat 5 times. Switch to the other arm. Build Your Staying Power Aerobic exercises make your heart and lungs stronger so you can keep moving longer. Walking and swimming are two of the best types of exercises you can do. Using a stationary bike is great, too. Find an aerobic exercise that you enjoy. Start slowly and build up. Even 5 minutes is helpful. Aimfor a goal of 30 minutes, at least 3 times a week. You dont have to do 30 minutes in one session. Break it up and walk a little throughout the day. More Helpful Tips Start easy. Slowly work up to doing more. Talk with your healthcare provider about the best exercises for you. Call senior centers or health clubs about exercise programs. If needed, have a family member watch you walk every so often to check your stability. Exercise with a friend. Choose an activity you both enjoy. Try exercises that you can do anytime, anywhere. Here are two examples. Have someone with you when you first try these: Practice walking by placing one foot right in front of the other. Stand up and sit down 10 times. Repeat this throughout the day. Barbie Patient Education Copyright 2008 - 2010 Barbie except where otherwise noted. Preventing Falls: Moving Safely Using a Cane or Walker (This education is for all patients over 65 regardless of symptoms) Keep the cane away from your feet so you dont trip. A walking aid, such as a cane or walker, can help you stay more independent and avoid falls. Remember to keep your walking aid within easy reach when youre in a chair or in bed. And learn how to use it safely so you dont injure yourself. Using a Cane If you have a stronger side, hold the cane on that side. Get your balance. Move the cane and your weaker leg forward. Support your weight on both the cane and your weaker side. Step with your stronger leg. Start again from step 1. If youre using a folding walker, be sure you know how to lock it open. Check that its locked open before each use. Using a Walker Roll the walker (or lift it, if youre using one without wheels) forward about 12 inches. Step forward with your weaker leg first. Use the walker to help keep your balance. Bring your other foot forward to the center of the walker. Start again from step 1. Helpful Tips Check with your healthcare provider about the right walking aid to use. Ask about a walker with a seat attached. Check the tips of your cane or walker to make sure they have nonskid covers. Move slowly from room to room. Dont abid. Sit down to get dressed. Use a mohan pack or backpack to keep your hands free. Get help for jobs that mean climbing, even on a stepstool. Barbie Patient Education Copyright 2008 - 2010 Barbie except where otherwise noted. Treating Urinary Incontinence in Men (This education is for all patients over 65 regardless of symptoms) You can't always control the release of urine. You may leak urine. Or you may not be able to hold your urine until you can get to a bathroom. This is called urinary incontinence. The problem can be managed. Talk to your doctor about your treatment options. Taking Medications Prescription medications may help you. They may: Help the sphincter to work better. (This is the muscle that closes to keep urine from leaking out of the bladder.) Help stop the bladder from garcia too often to push urine out. Help the bladder muscles contract with more force. Help relax the sphincter muscle and allow urine to flow more freely. Making Changes to Your Routine Certain changes in your daily routine may help. These include: Avoiding caffeine and alcohol. Using timed voiding. This is following a schedule for drinking fluids and urinating. Doing Kegel exercises daily. These exercises involve tightening the muscles in your sphincter and around your bladder to help strengthen them. Your doctor can explain how to do them. Using a Catheter A catheter is a narrow tube that is inserted through the urethra into the bladder. It drains urine.A condom catheter covers the penis. It channels urine into a collection bag. It is worn most of thetime. Intermittent catheterization means inserting a catheter to drain the bladder, then removing it. This is done on a regular schedule. Having Surgery If other options don't work, surgery may be recommended. If surgery is an option, your healthcare provider can discuss it with you and explain its risks and benefits. Healing After Prostate Surgery Surgery on the prostate gland can cause incontinence. Most often, the incontinence is only for a short time. It clears up when healing is complete. Very rarely, prostate surgery can result in permanent incontinence. documented in this encounter Progress Notes * Angel Quinteros DO - 06/29/2023 2:35 PM EST Images from the original note were not included. History of Present Illness Dedrick Peters is a 88 year old male that presents for NEW PATIENT Patient is an 88-year-old male here to establish care. Patient is here with and daughter in attendance. Patient has a history of neuroendocrine cancer, metastatic prostate cancer to bone, history of Hodgkin's lymphoma, history of Reveles's esophagus ,hypertension, chronic diastolic congestive heart failure, pulmonary hypertension, SANJEEV on CPAP, diabetes mellitus type 2, PMR, lumbar degenerative disc disease, and macular degeneration. Patient recently hospitalized for intractable nausea and vomiting. 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 Patient prescribed olanzapine 5 mg once daily with improved nausea and vomiting. Patient complains of low back pain with difficulty ambulating and prolonged standing. Patient is compliant with CPAP and is tolerating well. 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 Review of systems otherwise negative Physical Exam Vitals: 06/29/23 1259 Temp: 36.4 C (97.6 F) Pulse: 62 SpO2: 97% BP: 106/68 BMI: 33.53 BP Readings from Last 3 Encounters: 06/29/23 106/68 06/27/23 142/74 06/26/23 152/76 Wt Readings from Last 3 Encounters: 06/29/23 96.3 kg (212 lb 6.4 oz) 06/26/23 96.6 kg (213 lb) 06/15/23 96.8 kg (213 lb 6.5 oz) BMI Readings from Last 3 Encounters: 06/29/23 33.52 kg/m 06/26/23 32.39 kg/m 06/15/23 32.46 kg/m BP 106/68 (BP Site: Left Arm) | Pulse 62 | Temp 36.4 C (97.6 F) | Ht 1.695 m (5' 6.75") | Wt 96.3 kg (212 lb 6.4 oz) | SpO2 97% | BMI 33.52 kg/m | BSA 2.13 m General: alert, healthy, and no distress Head: Normocephalic, No masses, lesions, tenderness or abnormalities Eye Exam: PERRLA, extraocular movements intact, conjunctiva are pink and non- injected, sclera clear Ears: External ears normal, Canals clear, TM's Normal, hearing aids bilateral Nose: no mucosal erythema, no mucosal edema, no purulent discharge Oropharynx: no exudate, no erythema, lips, buccal mucosa, and tongue normal, and mucous membranes are moist Neck: supple, no adenopathy, no bruits, thyroid normal size, non-tender, without nodularity Lymph: no palpable lymphadenopathy Heart: regular rate & rhythm, no murmur, and no gallops Lungs: chest symmetric with normal AP diameter, no chest deformities noted, no chest wall tenderness, lungs clear to auscultation Pulses: carotid=2/4 w/o bruits Abdomen: abdomen soft, non-tender, normal bowel sounds, and no masses or organomegaly Back: back symmetric, no curvature, no costovertebral angle tenderness, lumbar paravertebral musclespasm and tenderness decreased range of motion lumbar flexion L1-L5 Extremities: less than 2 second capillary refill, no joint deformities, effusion, or inflammation Neuro Exam: alert & oriented x 3 with fluent speech, no focal motor/sensory deficits, gait normal, decreased DTR 0/4 bilateral Achilles Skin: skin color, texture, turgor are normal, no rashes or significant lesions I have reviewed the following results: Lipase, CMP, Hemoglobin A1C, CBC, Magnesium, and PSA Assessment and Plan Neuroendocrine cancer (HCC) Follow with gastroenterology and Hematology/Oncology Continue olanzapine 5 mg 1 tab once daily for nausea and vomiting Prostate cancer metastatic to bone (HCC) Follow with Urology Tramadol 50 mg 1 tab q.6 hours p.r.n. pain History of Hodgkin's disease With follow with Hematology/Oncology History of Reveles's esophagus Follow with gastroenterology Hypertensive heart disease with chronic diastolic congestive heart failure (HCC) Continue present medication Atenolol 50 mg 1 tab a.m., 1/2 tab p.m. Benazepril 40 mg 1 tab once daily Amlodipine 5 mg 1 tab once daily Spironolactone 25 mg 1/2 tab once daily Furosemide 20 mg 1 tab once daily Diuretic titration plan Follow with Cardiology Chronic respiratory failure with hypoxia ([facility]) Follow with pulmonology Pulmonary hypertension ([facility]) Furosemide 20 mg 1 tab once daily SANJEEV on CPAP CPAP Type 2 diabetes mellitus with diabetic polyneuropathy, without long-term current use of insulin ([facility]) Diabetic diet Type 2 diabetes mellitus with hemoglobin A1c goal of less than 8.0% ([facility]) Diabetic diet PMR (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) ([facility]) Continue present medication Prednisone 5 mg 1 tab once daily Lumbar degenerative disc disease Tramadol 50 mg 1 tab q.6 hours p.r.n. 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 | For: Clinic Visit | Check-out note: Please add to AWV list. Time: I spent a total of 40-54 minutes (exact time 40 mins) on the date of service in preparation, delivery, and documentation of the care provided to Dedrick Peters excluding any time spent in the performance of separately billed services. NDA * Ivania Thompson LPN - 06/29/2023 12:48 PM EST Urinary Incontinence Plan of Care Documentation: (This education is for all patients over 65 regardless of symptoms) Current medications reconciled. Patient encouraged to: Practice kegal exercises Provide education materials Use the restroom every 2 hours throughout the day Limit caffeine, alcohol, spicy foods and acidic foods Keep a bladder diary Limit fluid intake 3-4 hours before bed Lose weight Prevent constipation Take fluid pills at a time when you can get to the bathroom quickly Control sugar better if diabetic Limit fluid intake to 60 oz. per day Wear support stockings (TEDs)if you have edema Ivania Thompson LPN 06/29/2023 documented in this encounter Plan of Treatment Upcoming Encounters Date Type Department Care Team (Late st Contact Info) Description 07/03/2023 9:00 AM EST Scheduled Telephone Palliative Medicine, [address] 5[address] Floor [place] [address] [place], Nurse Palliative Medicine [address] [address] 07/03/2023 2:00 PM EST Office Visit Ophthalmology, [facility] [address] [address] [address] Toney Davis DO [address] [address] [address] 07/06/2023 12:40 PM EST Office Visit Podiatry [facility] [address] [address] [address] Felicita Copeland DPM [address] [address] 07/17/2023 4:00 PM EST Home Visit [facility] [address] [place] [address] Emeli Toledo, RN [address] [place] [address] 07/27/2023 12:40 PM EST Office Visit Gastroenterology, [facility] [address] [facility] [place] [phone] Trina Plaza, DO [address] [place] [address] 08/03/2023 1:30 PM EST Office Visit Urology [facility] [place] [address] [place] [address] [place] [address] Ryan Cunningham MD [address] [place] [address] [place] [address] 08/11/2023 1:00 PM EST Office Visit Family Practice [facility] [place] [address] [place] [phone] Angel Quinteros, DO [address] [place] [address] 08/30/2023 1:00 PM EST Nurse Only Ancillary [facility] [place] [address] [place] [address] [place], Nurse Annual Wellness Visit [address] [place] [phone] 09/11/2023 2:00 PM EDT Appointment Radiology, [facility] [address] [facility] [place] [phone] 09/11/2023 2:30 PM EDT PulmDiagnostic Pulmonary Function Lab [facility] [address] [place] [address] [place], [address] [place] [address] 09/11/2023 3:00 PM EDT Office Visit Pulmonary Medicine [facility] [address] [place] [phone] Saul Moscoso MD [address] [place] [address] 10/25/2023 2:40 PM EDT Office Visit Family Practice [facility] [address] [facility] [place] [address] Mirza Mcgee III, MD [address] [facility] [place] [address] 05/02/2024 1:00 PM EST Office Visit Sleep Disorders, [facility] [address] [place] [address] Alesha John MD [address] [place], [place] [phone] Health Maintenance Due Date Last Done Comments [...] this encounter Medical Devices Implanted Type Area Spray Gun Striper Device Identifier Shelf Expiration Date Model / Serial / Lot Femur Nexgn E Right - [id number] Implanted:Qty: 1 on 05/12/2008 at OR [facility] Right: Knee [employer] 02/24/2018 [id number] / / [id number] Femur Nexgn E Left - [id number] Implanted:Qty: 1 on 11/19/2008 at OR [facility] Left: Knee [employer] [id number] / / [id number] Sut Steel 6 [id number] - [id number] Implanted:Qty: 6 on 07/11/2011 at OR [facility] N/A: Chest DO NOT USE 01/09/2016 / / [id number] [employer]ision Lens [id number] Implanted:Qty: 1 on 11/07/2013 at OR [facility] Right: Eye 06/25/2016 [id number] / [id number] / [id number] documented as of this encounter Visit Diagnoses Diagnosis Neuroendocrine cancer (HCC)- Primary Malignant poorly differentiated neuroendocrine carcinoma, any site Prostate cancer metastatic to bone (HCC) History of Hodgkin's disease Personal history of Hodgkin's disease History of Reveles's esophagus Hypertensive heart disease with chronic diastolic congestive heart failure (HCC) Chronic respiratory failure with hypoxia (HCC) Chronic respiratory failure Pulmonary hypertension (HCC) Other chronic pulmonary heart diseases SANJEEV on CPAP Obstructive sleep apnea (adult) (pediatric) Type 2 diabetes mellitus with diabetic polyneuropathy, without long-term current use of insulin (HCC) Type 2 diabetes mellitus with hemoglobin A1c goal of less than 8.0% (HCC) PMR (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) (HCC) Polymyalgia rheumatica Lumbar degenerative disc disease Degeneration of lumbar or lumbosacral intervertebral disc Immunocompromised (HCC) 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) Class 2 severe obesity due to excess calories with serious comorbidity and body mass index (BMI) of 37.0 to 37.9 in adult Risk and functional assessment Screening for unspecified condition documented in this encounter Advance Directives Latest [...] Agen t (per Health Care Power of Automotive Refinisher document) [email or web address] Adult Child First Alternate Health Care Agent (per Health Care Power of Automotive Refinisher document) [email or web address] Care Teams Bead Stringer Relationship Specialty Start Date End Date Angel Quinteros DO [address] [place] [phone] PCP - General Family Medicine 06/14/23 documented as of this encounter
--- OUTSIDE RECORDS SUMMARY | 2023-07-04 20:33 | External Medical Summary | Summary of Care ---
Author Name Unknown Organization [facility] Address [address] [place] [address] Phone [phone] Care Team Providers Care Media Manager Name Role Phone Angel Quinteros DO Primary Care Provider [phone] Reason for Visit * Reason Onset Date Comments Palliative Care Follow-up 07/03/2023 Encounter Details Date Type Department Care Team (Late st Contact Info) Description 07/03/2023 9:00 AM EST Scheduled Telephone Palliative Medicine, [address] 5th Floor [place], [place] [id number] Co, Nurse Palliative Medicine [address] [phone] Allergies Active Allergy Reactions Criticality Noted Date Comments Amoxicillin Rash 09/27/2005 At time of knee replacement Oxycodone Other (Please comment) 10/11/2012 Severe mental change Oxycodone-Acetaminophe n Other (Please comment) 03/15/2010 Severe mental change documented as of this encounter (statuses as of 07/03/2023) Medications Medication Sig Dispensed Refills Start Date End Date Status DIURETIC TITRATION PLAN If no improvement on day 3, contact heart failure managing provider or [facility] at home special education case manager 1 Each 0 01/30/2019 Active aspirin [...] as of this encounter (statuses as of 07/03/2023) Active Problems Problem Noted Date Diagnosed Date [...] DNR (do not resuscitate) 05/21/2023 Constipation 05/21/2023 [place] (hard of hearing) 05/21/2023 Poor vision 05/21/2023 [...] vein thrombosis) 09/22/2015 PMR (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) 10/18/2012 half-way current use of systemic steroids 10/18 History [...] as of this encounter (statuses as of 07/03/2023) Resolved Problems Problem Noted Date Diagnosed Date [...] lower extremities 11/24/2008 09/22/2015 Overview: seen at [facility] ER Anemia 05/13/2008 03/21/2017 Osteoarthritis of [...] obstruction 2 08/23/2018 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 [facility] S[facility] 02/2019 Overview: knees documented as of this encounter (statuses as of 07/03/2023) Immunizations Name Administration Dates Next Due COVID-19 [...] Telephone Encounter - Katlyn Ortiz LPN - 07/03/2023 1:14 PM EST Palliative f/u phone call At last phone call on 06/27, patient and wanted to see what PCP had to say before proceeding with anything Patient has appt in [facility] today at 2pm Will call patient tomorrow documented in this encounter Plan of Treatment Upcoming Encounters Date Type Department Care Team (Late st Contact Info) Description 07/03/2023 2:00 PM EST Office Visit Ophthalmology, [facility] [address] [place] [address] Toney Davis, [address] [place] [address] Arrived 07/04/2023 9:00 AM EST Scheduled Telephone Palliative Medicine, [facility] [address] [facility] 5th Floor [place] [address] Co, Nurse Palliative Medicine [address] [facility] [place] [address] 07/06/2023 12:40 PM EST Office Visit Podiatry [facility] [address] [place] [address] Felicita Copeland DPM [address] [place] [address] 07/17/2023 4:00 PM EST Home Visit [facility] at [facility] [address] [place] [address] Emeli Toledo, RN [address] [facility] [place] [address] 07/27/2023 12:40 PM EST Office Visit Gastroenterology[address] [phone] Trina Plaza DO [address] [place] [address] 08/03/2023 1:30 PM EST [facility] [address] [place] [address] Ryan Cunningham MD 27 [facility] [address] [place] [address] 08/11/2023 1:00 PM EST Office Visit Family Practice 65 [facility] [address] [place] [address] Angel Quinteros, [address] [place] [address] 08/30/2023 1:00 PM EST Nurse Only Ancillary [address] [place] [address] Deangelo, Nurse Annual Wellness Visit [address] [place] [phone] 09/11/2023 2:00 PM EDT Appointment Radiology, [address] [place] [address] 09/11/2023 2:30 PM EDT PulmDiagnostic Pulmonary Function Lab [facility] [address] [place] [address] [place], [address] [place] [address] 09/11/2023 3:00 PM EDT Office Visit Pulmonary Medicine [facility] [address] [place] [phone] Saul Moscoso MD [address] [facility] [place] [address] 10/25/2023 2:40 PM EDT Office Visit Family Practice [facility] 200 [facility] [place] [address] Mirza Mcgee III, MD 200 [facility] [address] 05/02/2024 1:00 PM EST Office Visit Sleep Disorders, [facility] [address] [facility] [place] [address] Alesha John MD 400 [facility] [address] Health Maintenance Due Date Last Done Comments [...] this encounter Medical Devices Implanted Type Area Donations Attendant Device Identifier Shelf Expiration Date Model / Serial / Lot Femur Nexgn E Right - [id number] [place] [facility] [place] Knee [employer] 02/24/2018 [id number] [id number] / / [id number] Femur Nexgn E Left - [id number] Implanted:Qty: 1 [place] 11[place]19/2008 [place] [facility] [place]: Knee [employer] [id number] [id number] / / [id number] Sut Steel 6 M654g - [id number] Implanted:Qty: 6 on 07/11/2011 [place] [facility] [place]/A: Chest DO NOT USE 01/09/2016 / / [id number] Akreos Ao Micro Incision Lens Mi60l Implanted:Qty: 1 on 11/07/2013 at OR [facility] Right: Eye 06/25/2016 [id number] / [id number] / [id number] documented as of this encounter Advance Directives [...] Agen t (per Health Care Power of Cook Helper document) [email or web address] Adult Child First Alternate Health Care Agent (per Health Care Power of Cook Helper document) [email or web address] Care Teams Media Manager Relationship Specialty Start Date End Date Angel Quinteros DO [address] [place] [address] PCP - General Family Medicine 06/14/23 documented as of this encounter
--- OUTSIDE RECORDS SUMMARY | 2023-07-04 20:33 | External Medical Summary | Summary of Care ---
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) Procedures INJECTION OF EYE DRUG RANIBIZUMAB 0.5 MG/0.05 ML IO SOLN, PER 0.1 MG Toney Davis DO [address] [place] [address] Referral ID Status Reason Start Date Expiration Date V isits Requested Visits Authorized [id number] Authorized Precert 07/04/2019 06/25/2099 99 99 Encounter Details Date Type Department Care Team (Late st Contact Info) Description 07/03/2023 2:00 PM EST Office Visit Ophthalmology, [facility] [address] [place] [address] Toney Davis DO [address] [place] [address] Exudative age-related macular degeneration of right eye with active choroidal neovascularization (HCC)* Allergies Active Allergy Reactions Criticality Noted [...] failure managing provider or [facility] at home telehealth case manager 1 Each 0 01/30/2019 Active [...] DNR (do not resuscitate) 05/21/2023 Constipation 05/21/2023 [place] (hard of hearing) 05/21/2023 Poor vision 05/21/2023 [...] 11/24/2008 09/22/2015 Overview: seen at [facility] ER Anemia 05/13/2008 03/21/2017 Osteoarthritis of knee [...] No 06/23/2023 documented as of this encounter Progress Notes * Toney Davis, - 07/03/2023 2:00 PM EST [facility] [place] Nursing notes reviewed. Eye vitals reviewed. Mood and Affect: normal HPI: Dedrick Peters is an 88 year old male who presents for NAION and AMD. No other eye complaints. Denies significant pain. Base Eye Exam Tonometry (Tonopen, 1:57 PM) Right Left Pressure 15 15 Pupils Pupils APD Right PERRL None Left PERRL None Visual Ceballos (Counting fingers) Right Left Full Restrictions Total superior temporal, inferior temporal, superior nasal, inferior nasal deficiencies Extraocular Movement Right Left Full, Ortho Full, Ortho Neuro/Psych Oriented x3: Yes Mood/Affect: Normal Dilation Both eyes: 0.5% Proparacaine @ 1:57 PM Dilation #2 Right eye: 1.0% Mydriacyl, 2.5% Phenylephrine @ 1:57 PM Dilation Comments Patient cautioned that effects of dilation may last 2-7 hours dependant upon individual reaction. It was discussed that driving while dilated is not recommended. Strabismus Exam Correction: sc Observations: Ortho Distance Near Near +3DS N Bifocals cover/uncover, and alternate cover EXTERNAL: The ocular adnexae are unremarkable. SLE: Lids/Lashes: wnl OU Conjunctiva/Sclera: quiet OU Cornea: clear OU Anterior Chamber: deep and quiet OU Iris: normal OU; no NVI OU Lens: PCIOL OU s/p yag cap OD; PCO OS Dilated fundus exam OD: vitreous: +pvd w/ debris optic nerve: resolved nasal disc edema of the optic nerve w/ telangiectatic vessels, +sector pallor macula: resolved SRheme, fibrosis, GA vessels: wnl midperiphery: wnl periphery: no RT/RD, +rpe changes/cobblestone Dilated fundus exam OS - 04/13/2021: difficult view due to PCO Vitreous: +pvd w/ debris optic nerve: 0.3, +pallor; no edema/NVD macula: srfibrosis vessels: wnl midperiphery: wnl periphery: no RT/RD, +rpe changes OCT Interpretation: OD: srmounding -STABLE, prior STABLE, prior STABLE, prior STABLE, prior STABLE, prior improved, prior improved, prior mproved, prior worse 52um prior STABLE, prior STABLE, prior stable/dry, prior improved/dry OS: 07/04/19: +SRmound/fibrosis, no SRFluid - stable A/P: 1. Age-related macular degeneration OU OD: wet onset: 06/27/18 -h/o sterile endophth after Eylea - s/p Lucentis (02/08/23, 12/20/22, 11/08/22, 09/15/22, 06/13/22, 04/25/22, 03/07/22, 11/29/21, 10/11/21, 08/27/21, 07/14/21, 05/27/21, 04/13/21, 9--21, 7--21, 5--21, 4--21, 3--21, --21, 05/07/20, --20, -16-20, 6--20, -16-20, 08/22/19, 07/04/19, -14-19, --19, 8--19, 6-6-19, -30-19, -19-19, --19, --19) - 7 weeks since last injection; worse at 10 weeks OS: wet - s/p Avastin (08/02/11, 05/24/11, 04/06/11, 03/08/11, 01/10/11, 11/26/10, 11/02/10, 08/10/10, 06/29/10, 06/01/10, 04/30/10, 04/01/10) -VA was 20/50 on presentation -pattern: recurs in past at 7-8 weeks -always had some SRFluid on Avastin - s/p Eylea (09/20/12--STERILE ENDOPHTHALMITIS, 08/23/12- 4 weeks improved, 07/19/12-improved 4 weeks,06/05/12-worse 6 weeks, 04/23/12-stable, 03/12/12, 01/12/12, 11/14/11) H/o sterile Endophthalmitis OS following Eylea 09/20/12 -VA went from 20/150 to CF, started 09/22/12, 2 days after injection - s/p Lucentis (11/06/14, 09/09/14--worse at 8 weeks, 07/28/14--improved 6 weeks, 06/13/14--worse 7 weeks, 03/28/14-no sig change, 02/07/14-no sig change, 11/11/13- improved, 09/17/13-worse, 08/02/13--improved,06/12/13-improved, 07/08/12--worse 5 weeks, 04/10/13-improved 4 weeks, 02/27/43-worse 6 weeks, 01/23/13-improved 67um, 11/23/12-improved 86um) -VA poor OS; hold further anti-VEGF 2. NAION OD -optic nerve edema and associated srfluid OD resolved now w/ sector pallor -vision loss and dizziness worsening over 1 week prior to presentation 01/11/17 -MRI brain wnl, ESR 16/ plts nml/CRP wnl -No MAHARAJ, jaw claudication, wt. loss, joint pain, scalp tenderness, pt has PMR and on chronic low dose oral steroids *has Hodgkin's Lymphoma--finished chemo/radiation--last PET shows remission -prostate cancer also -disc edema resolved w/ resultant sector disc pallor 3. PMR -on oral steroids 4. Posterior Vitreous Detachment OU -no RT/RD 5. Epiretinal Membrane OS>OD -no treatment indicated at this time 6. Myopia OU -(-4-5) 7. Pseudophakia OU -CE w/ Dr. Velazquez OS 01/02/13 -CE w/ Dr. Velazquez OD 11/06 TIMEOUT PROCEDURE: correct patient identity-YES correct procedure and consent-YES verified side and site-YES correct patient position-YES all necessary equipment/prior studies present-YES reviewed special requirements of this patient-YES PROCEDURE: Intravitreal injection of Lucentis (ranibizumab) 0.5mg OD INFORMED CONSENT: Risks, benefits and alternatives have been discussed with the patient. Risks include, but are not limited to: retinal tears, detachments, hemorrhage, glaucoma, infection, cataracts, need for more procedures and the potential risk of arterial thromboembolic events following use of intravitreal VEGF inhibitors defined as nonfatal stroke, nonfatal myocardial infarction or vascular . Patient is aware of these risks and consents to the procedure. DESCRIPTION OF PROCEDURE: The procedure site was confirmed. Topical proparacaine was applied to the surface of the eye after which subconjunctival anesthetic was administered. The area was prepped in the usual standard mannerwith 5% Betadine solution. An eyelid speculum was placed and 0.05 ml of a 10mg/ml solution of Lucentis was injected 3.75 mm posterior to the limbus into the midvitreous cavity with a 30 gauge short needle. The eye speculum was removed, Betadine was flushed from the eye and optic nerve perfusion wasinsured. The patient tolerated the procedure without difficulty and was given followup instructionsand instructed to use ophthalmic ointment 3x/day as needed Toney Davis DO, performed the procedure in its entirety. F/u 6-8 weeks - dilate and OCT OD Toney Davis DO [address] CC: Jaya Velazquez MD PCP: Mirza Mcgee III, MD documented in this encounter Nursing Notes * Chantell Silva RN - 07/03/2023 2:17 PM EST Dedrick Peters to receive 37 Lucentis 0.5mg Injection of the Right eye. Correct eye confirmed with patient and marked by Toney Davis DO Lucentis 0.5mg lot # [id number] Exp. Date: 09/2024 * Chantell Silva RN - 07/03/2023 1:51 PM EST Dedrick Peters is a 88 year old year old male who presents for AMD OU. Last Office Visit: 03/27/2023 (in office), Visit date not found (telemedicine) Patient currently states no change in vision. Are you diabetic? No Do you drive? no OCT image(s) of right eye acquired and filed/scanned into chart. documented in this encounter Plan of Treatment Upcoming Encounters Date Type Department Care Team (Late st Contact Info) Description 07/04/2023 9:00 AM EST Scheduled Telephone Palliative Medicine, [address] 5th [place] [address] Al, Nurse Palliative Medicine [address] [address] 07/06/2023 12:40 PM EST Office Visit Podiatry [facility] [address] [place] [address] Felicita Copeland DPM [address] [place] [address] 07/17/2023 4:00 PM EST Home Visit [facility] [address] [place] [address] Emeli Toledo RN [address] [place] [address] 07/27/2023 12:40 PM EST Office Visit Gastroenterology, [facility] [address] [facility] [place] [address] Trina Plaza, DO [address] [place] [address] 08/03/2023 1:30 PM EST Office Visit Urology [address] [place] [address] [place] [address] Ryan Cunningham MD 27 [facility] [address] [place] [place] [address] 08/11/2023 1:00 PM EST Office Visit Family Practice [address] [place] [address] [place] [address] Angel Quinteros, DO [address] [place] [address] 08/14/2023 1:45 PM EST Office Visit Ophthalmology, [facility] 132 [facility] [place] [address] Toney Davis, DO 132 [facility] [place] [address] 08/30/2023 1:00 PM EST Nurse Only Ancillary [address] [place] [address] Deangelo, Nurse Annual Wellness Visit [address] [place] [phone] 09/11/2023 2:00 PM EDT Appointment Radiology, [address] [place] [address] 09/11/2023 2:30 PM EDT Pul[facility]Diagnostic [facility] [place] [address] [place] [address] [place], [address] [place] [address] 09/11/2023 3:00 PM EDT Office Visit Pulmonary Medicine [facility] [place] [address] [place] [phone] Saul Moscoso MD [address] [place] [address] 10/25/2023 2:40 PM EDT Office Visit Family [facility] 200 [place] [address] Mirza Mcgee III, MD 200 [facility] [place], [place] [address] 05/02/2024 1:00 PM EST Office Visit Sleep Disorders, [facility] 400 [facility] [place] [address] Alesha John MD [address] [place] [address] Scheduled Orders Name Type Priority Associated Diagnoses Orde r Schedule RETINA SCAN DIAGNOSTIC IMAGE, POSTERIOR Procedures Routine Exudative age-related macular degeneration of right eye with active choroidal neovascularization (HCC) Ordered: 07/03/2023 Health Maintenance Due Date Last Done Comments [...] this encounter Medical Devices Implanted Type Area Distribution System Operator Device Identifier Shelf Expiration Date Model / Serial / Lot Femur Nexgn E Right - [id number] Implanted:Qty: 1 on 05/12/2008 at [place] [facility] [place] Right: Knee [employer] 02/24/2018 00-5996-015 -[id number] / / [id number] Femur Nexgn E Left - [id number] Implanted:Qty: 1 on 11/19/2008 at [place] [facility] [place] Left: Knee [employer] 00-5996-015 -51 / / [id number] Sut Steel 6 M654g - [id number] Implanted:Qty: 6 on 07/11/2011 at [place] [facility] [place] N/A: Chest DO NOT USE 01/09/2016 / / [id number] Akre[employer] Ao Micro Incision Lens Mi60l Implanted:Qty: 1 on 11/07/2013 at OR [facility] Right: Eye 06/25/2016 [id number] / [id number] / [id number] documented as of this encounter Visit Diagnoses Diagnosis Exudative age-related macular degeneration of right eye with active choroidal neovascularization (HCC)- Primary documented in this encounter Administered Medications Active Administered Medications - up to 3 most recent administrations Medication Order MAR Action Action Date Dose Rate Site Ranibizumab (Lucentis) intravitreal inj SOSY 0.5 mg 0.5 mg, Intravitreal, PRN Other, Starting on Mon09/15/22 at 1455, Until Mon09/15/23 at 1454, For 365 days Given 07/03/2023 2:19 PM EST 0.5 mg Eye Right Given 03/27/2023 1:44 PM EDT 0.5 mg Ey e Right Given 02/08/2023 1:19 PM EDT 0.5 mg Ey e Right ROPivacaine (Naropin) inj 1.5 mg 1.5 mg, Injection, PRN Other, Starting on L[place] 09/15/22 at 1455, Until Mon09/15/23 at 1454, For 365 days Given 07/03/2023 2:19 PM EST 1.5 mg Eye R ight Given 03/27/2023 1:43 PM EDT 1.5 mg Ey e Right Given 02/08/2023 1:19 PM EDT 1.5 mg Ey e Right documented in this encounter Advance Directives Latest [...] Agen t (per Health Care Power of Ramp Service Agent document) .ChemiSense Huma Hernández Adult Child First Alternate Health Care Agent (per Health Care Power of Ramp Service Agent document) [email or web address] Care Teams Stationary Boiler Fireman Relationship Specialty Start Date End Date Angel Quinteros DO [address] [place] [phone] PCP - General Family Medicine 06/14/23 documented as of this encounter
--- OUTSIDE RECORDS SUMMARY | 2023-07-04 20:33 | External Medical Summary | Summary of Care ---
Author Name Unknown Organization [facility] Address [address] [place] [address] Phone [phone] Care Team Providers Care Business Job Titles Name Role Phone Angel Quinteros DO Primary Care Provider + [phone] Reason for Visit * Reason Comments [facility]: Maintenance Encounter Details Date Type Department Care Team (Late st Contact Info) Description 06/27/2023 12:30 PM EST [facility] Visit [facility] [address] [facility] [place] [address] Emeli Toledo, RN [address] [place] [address] Allergies Active Allergy Reactions Criticality Noted Date Comments Amoxicillin Rash 09/27/2005 At time of knee replacement Oxycodone Other (Please comment) 10/11/2012 Severe mental change Oxycodone-Acetaminophe n Other (Please comment) 03/15/2010 Severe mental change documented as of this encounter (statuses as of 06/27/2023) Medications Medication Sig Dispensed Refills Start Date End Date Status DIURETIC TITRATION PLAN If no improvement on day 3, contact heart failure managing provider or [facility] case briefer 1 Each 0 01/30/2019 Active aspirin enteric [...] as of this encounter (statuses as of 06/27/2023) Active Problems Problem Noted Date Diagnosed Date Intractable nausea and vomiting 06/23/2023 Hypokalemia 06/23/2023 Metastasis to liver 06/23/2023 Neuroendocrine cancer 06/23/2023 Anxiety disorder due to medical condition 2022 Palliative care encounter 06/23/2023 Goals of care, counseling/discussion 06/23/2023 Hypophosphatemia 06/10/2023 UTI (urinary tract infection) 06/10/2023 Intractable nausea and vomiting 05/21/2023 Uncontrolled pain 05/21/2023 Degenerative lumbar spinal stenosis 05/21/2023 DNR (do not resuscitate) 05/21/2023 Constipation 05/21/2023 SUQUAMISH (hard of hearing) 05/21/2023 Poor vision 05/21/2023 [...] vein thrombosis) 09/22/2015 PMR (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) 10/18/2012 emt intermediate current use of systemic steroids 10/18 History [...] as of this encounter (statuses as of 06/27/2023) Resolved Problems Problem Noted Date Diagnosed Date [...] 08/18/2020 04/14/2023 Overview: Seen on CT scan 2/21 incidental finding 8mm Anxiety, generalized 03/06/2020 023 [...] lower extremities 11/24/2008 09/22/2015 Overview: seen at [facility] ER Anemia 05/13/2008 03/21/2017 Osteoarthritis of knee [...] obstruction 2 08/23/2018 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 [facility] SITE 02/2019 Overview: knees documented as of this encounter (statuses as of 06/27/2023) Immunizations Name Administration Dates Next Due COVID-19 mRNA, LNP-s, No Pre serve, 2-Dose Series (Modustri) 08/30/2020,08/02/2020 Pneumococcal Conjugate Vacc, 13 Valent (Prevnar) [...] the money to buy more. Never true 05/29/20 23 Within the past 12 months, t he food you bought just didn't last and you didn't have money to get more. Never true 05/29/2023 Sex and Gender Information Value Date Recorded Sex Assigned at Male 06/10/2023 6:53 AM EST Gender Identity Male 06/10/2023 6:53 AM EST Sexual Orientation Straight 06/10/2023 6: 53 AM EST Job Start Date Occupation Industry Not on file Not on file Not on file documented as of this encounter Last Filed Vital Signs Vital Sign Reading Time Taken Comments Blood Pressure 142/74 06/27/2023 4:38 PM EST Pulse 60 06/27/2023 4:38 PM EST Temperature 37 C (98.6 F) 06/27/2023 4:38 PM EST Respiratory Rate 16 06/27/2023 4:38 PM EST Oxygen Saturation 95% 06/27/2023 4:38 PM EST Inhaled Oxygen Concentration - - Weight - - Height - - Body Mass Index - - documented in this encounter Functional Status Functional [...] as of this encounter Progress Notes * Emeli Toledo, RN - 06/27/2023 4:08 PM EST [facility] Project Coordinator Monthly Visit Date: 06/27/2023 Time: 4:09 PM Name: Dedrick Peters : 1935 Situation: return Background: PMHx: CHF, HTN, PVC, CKD 3a, macular degeneration b/l, COPD group C, SANJEEV, chronic resp fx w/ hypoxia, sacroiliitis, UTI, DM, steroid-induced DM, dyslipidemia, hypokalemia, hypophosphatemia, IBS, GERD, Baretts Esophagus, intractable n/v, constipation, PMR, 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, generalized OA, BPH, hearing loss, hx Hodgkin's (dx 2011), DVT, spinal stenosis, esophageal Sameera Utilization: 05/09/23 - [facility] ED, severe back pain, suspected neoplastic/metastatic finding in liver and peritoneal cavity just below sternum, constipation x1 week 05/21-05/27/23 - [facility], uncontrolled pain, constipation, nausea 06/10- - [facility], Intractable n/v, UTI 06/23/23 - 06/26/23 - [facility], intractable n/v, started on Zyprexa Assessment: Sitting in recliner with Rolator at side Denies nausea since home picking up Zyprexa tonight Discussed that may cause sedation and encouraged to try taking at night - agreed to do so Medi HH resuming tomorrow Has back pain, 4-5/10 at rest but feels is manageable with use of lidocaine patch Has not been using tramadol Denies sob Lungs CTA +1 edema but improving since home from hospital Physical Exam: BP 142/74 | Pulse 60 | Temp 37 C (98.6 F) | Resp 16 | SpO2 95% Pain 4 Physical Exam Constitutional: Appearance: Normal appearance. HENT: Head: Normocephalic and atraumatic. Cardiovascular: Rate and Rhythm: Normal rate and regular rhythm. Pulses: Normal pulses. Heart sounds: Normal heart sounds. Pulmonary: Effort: Pulmonary effort is normal. No respiratory distress. Breath sounds: Normal breath sounds. Abdominal: General: Bowel sounds are normal. Palpations: Abdomen is soft. Musculoskeletal: Cervical back: Normal range of motion and neck supple. Right lower leg: Edema present. Left lower leg: Edema present. Skin: General: Skin is warm and dry. Capillary Refill: Capillary refill takes less than 2 seconds. Neurological: General: No focal deficit present. Mental Status: He is alert. Mental status is at baseline. Motor: Weakness present. Gait: Gait abnormal. Problems/Symptoms: Review of Systems Constitutional: Positive for appetite change (poor) and fatigue. Eyes: Negative. Respiratory: Positive for shortness of breath (occasional GROVES). Cardiovascular: Positive for leg swelling (+1 b/l le pitting). Gastrointestinal: Negative for abdominal distention, abdominal pain, constipation, diarrhea, nauseaand vomiting. Genitourinary: Negative. Musculoskeletal: Positive for back pain (metastatic dx). Skin: Negative. Neurological: Positive for weakness. Psychiatric/Behavioral: The patient is nervous/anxious. Medication Reconciliation: (See medication list) Does patient take medications as ordered: Yes Patient Well Being: No change in living situation [facility] Completed this Visit: Yes. [facility]: Reason Completed: Status post ED visit/hospital admission [facility] ([facility]) Fall Risk Assessment Tool Age 65+: Yes (06/27/23 1700) Diagnosis (3 or more co-existing): Yes (06/27/231699) Prior history of falls within 3 months: No (06/27/231699) Incontinence: No (06/27/231699) Visual impairment: No (06/27/231699) Impaired functional mobility: Yes (06/27/231699) Environmental hazards: Yes (06/27/231699) Poly Pharmacy (4 or more prescriptions - any type): Yes (06/27/231699) Pain affecting level of function: Yes (06/27/231699) Cognitive impairment: No (06/27/231699) Score - a score of 4 or more is considered at risk for fallin (06/27/231699) [facility]-10 Interventions: Fall education provided, reviewed/provided Fall brochure Advanced Care Planning: No documentation, . Reinforcement/Education: Educated on home safety: Create a fall proof home Clear floors of clutter, loose wires, throw rugs, and cords. Make sure halls, stairways, and entrances are well lit. Install a nightlight in your bedroom, hallway and bathroom. Install grab bars or handrails in the bathroom and on stairs. Use a non-skid tub/shower mat. Avoid climbing on a chair; instead use a step stool with a high handrail. Keep sidewalks and steps in good repair Keep steps and sidewalks free of snow and ice. Using aids to support and prevent falls If you have poor balance or have fallen in the past, consider additional support such as a cane or walker. Use a cane with good support and that is the proper length for you. Use a walker if a cane doesnt provide enough support. Avoid medications that increase the risk of falling by causing dizziness, change in sensation or slowed reflexes. Certain medicines may cause falls - blood pressure pills, heart medicines, water pills, or sleepingpills. Be sure to understand each medicine that you are taking and any side effects that may occur. Improve your balance and flexibility with muscle strengthening exercises. Ask your health care provider for some exercises that will be right for you. Reviewed HF symptom monitoring: -Weigh self daily in am, post-void and record -Do not add salt to food, avoid foods high in sodium -Limit fluids to 2 liters per day -Report the following: ->2 lb weight gain in one day or 5 lbs in a week to PCP -increased edema in feet, abdomen or hands -increased SOB and cough, especially if at night -increased fatigue or vertigo Reinforced safety education and fall prevention. and Reinforced medication regimen. Timing., Dosing., and Purspose. Treatment/Plan: Followed by [facility] Palliative Care: Amador Moreno PA-C Zofrn and compazine prn HH - CPAP 10cm QHS w/ O2 1.5 lpm blend O2 provided by DTP on file: may take additional lasix 20mg Spare urine collection kit in home Tramadol for pain No APAP pending liver biopsy results Drink 1-2 high protein supplements daily Patient's Goals of Care: Liver biopsy Learn more about state of cancer Spend time with family Patient's 'Red Flags': No BM x3 days Uncontrolled pain Uncontrolled n/v Verbalized understanding of Plan and provides VTB of red flags Home Interventions Provided: Reinforced current Plan of Care, including self-management and medication regimen Updated Exacerbation Plan Patient Needs to Remember: Call [facility] with red flags Referrals Needed: Other n Follow Up: Is there cellular connectivity/connectivity in the home? Yes Does the patient have internet in the home? Yes Patient encouraged to call the intake phone number for all urgent but not emergent issues. Is the patient new to [facility] within the last 30 days? No, Assess appropriateness for upcoming telehealth visits. Cancel telehealth visits & schedule home visit with care teamcenter solution architect(s)as indicated. Provider is in agreement with Plan of Care: Yes Scheduled to follow up with patient next week with Amador Moreno then 07/17 with RNCM. Emeli Toledo RN 06/27/2023 4:09 PM documented in this encounter Plan of Treatment Upcoming Encounters Date Type Department Care Team (Late st Contact Info) Description 06/29/2023 12:45 PM EST Nurse Only Family Practice [address] [facility] [place] [address] [place] [phone] Nurse [facility] [address] [place] [phone] 06/29/2023 1:00 PM EST Office Visit Family Practice [address] [facility], [place] [address] [place] [phone] Angel Quinteros DO [address] [place] [address] 07/03/2023 9:00 AM EST Scheduled Telephone Palliative Medicine, [facility] [address] [facility] 5th Floor [place] [address] [place], Nurse Palliative Medicine [facility] 5th [address] [place] [address] 07/03/2023 2:00 PM EST Office Visit Ophthalmology, [facility] [address] [place] [address] Toney Davis DO [address] [place] [address] 07/06/2023 12:40 PM EST Office Visit Podiatry [facility] [address] [place] [address] Felicita Copeland DPM [address] [place] [address] 07/17/2023 4:00 PM EST Home Visit [facility] [address] [place] [address] Emeli Toledo, RN [address] [place] [address] 07/27/2023 12:40 PM EST Office Visit Gastroenterology, [facility] [address] [facility] [place] [phone] Trina Plaza DO [address] [place] [address] 08/03/2023 1:30 PM EST Office Visit Urology [facility] [address] [place] [address] Ryan Cunningham MD [address] [place] [address] 09/11/2023 2:00 PM EDT Appointment Radiology, [facility] [address] [facility] [place] [phone] 09/11/2023 2:30 PM EDT PulmDiagnostic Pulmonary Function Lab [facility] [place] [address] [place] [address] [place], [address] [address] [facility] [place] [address] 09/11/2023 3:00 PM EDT Office Visit Pulmonary Medicine [facility] [place] [address] [place] [phone] Saul Moscoso [facility] [address] [facility] [address] 10/25/2023 2:40 PM EDT Office Visit Family Practice [facility] [address] [place] [address] Mirza Mcgee III, MD [address] [place] [address] 05/02/2024 1:00 PM EST Office Visit Sleep Disorders, [address] [place] [address] Alesha John MD [address] [facility] [place] [address] Health Maintenance Due Date Last Done Comments Zoster Vaccines (1 of 2) 1954 COVID-19 Vaccine (3 - Pfizer risk series) 09/27/2020 08/30/2020, 08/02/2020 Depression Screening 02/03/2024 02/02/2023 O2 ASSESSMENT COMPLETED IN P AST YEAR FOR COPD 06/26/2024 06/26/2023 DXA Scan 11/02/2024 11/02/2021, 07/27, 04/11/2017, Additional history exists Diabetic Foot Exam Discontinued 12/08/2020, 0 03/06/2020, 03/04/2019, Additional history exists Diabetic Eye Exam Discontinued 10/11/2021, , 07/14/2021, Additional history exists Albumin/Creatinine Ratio Discontinued 10/26/2022, 02/25 Influenza Vaccine (FLU shot) Completed , 03/31/2022, 03/23/2021, Additional history exists documented as of this encounter Medical Devices Implanted Type Area Boiler Tender Device Identifier Shelf Expiration Date Model / Serial / Lot Femur Nexgn E Right - [id number] Implanted:Qty: 1 on 05/12/2008 at [place] [facility] [place] [facility] [place] Right: Knee [employer] 02/24/2018 [id number] / / [id number] Femur Nexgn E Left - [id number] Implanted:Qty: 1 on 11/19/2008 at [place] [facility] [place] [facility] [place] Left: Knee [employer] [id number] / / [id number] Sut Steel 6 [id number] - [id number] Implanted:Qty: 6 on 07/11/2011 at [place] [facility] [facility] [place] N/A: Chest DO NOT USE 01/09/2016 / / [id number] [employer]ision Lens Mi60l Implanted:Qty: 1 on 11/07/2013 at OR [facility] Right: Eye 06/25/2016 [id number] / [id number] / [id number] documented as of this encounter Advance Directives [...] Agen t (per Health Care Power of Stopper Maker Helper document) [email or web address] Child First Alternate Health Care Agent (per Health Care Power of Stopper Maker Helper document) [email or web address] Business Job Titles Relationship Specialty Start Date End Date Angel Quinteros DO [address] [place] [address] PCP - General Family Medicine 06/14/23 documented as of this encounter"
--- OUTSIDE RECORDS SUMMARY | 2023-07-04 20:33 | External Medical Summary | Summary of Care ---
Author Name Unknown Organization [facility] Address [address] [place] [address] Phone [phone] Care Team Providers Care Body Maker Name Role Phone Angel Quinteros DO Primary Care Provider + [phone] Encounter Details Date Type Department Care Team (Late st Contact Info) Description 03/29/2023 Telephone Rheumatology [address] [place] [address] Services, Scheduling [address] [place] [address] Allergies Active Allergy Reactions Criticality Noted Date Comments Amoxicillin Rash 09/27/2005 At time of knee replacement Oxycodone Other (Please comment) 10/11/2012 Severe mental change Oxycodone-Acetaminophe n Other (Please comment) 03/15/2010 Severe mental change documented as of this encounter (statuses as of 06/28/2023) Medications Medication Sig Dispensed Refills Start Date End Date Status DIURETIC TITRATION PLAN If no improvement on day 3, contact heart failure managing provider or ising at home corrections caseworker 1 Each 0 01/30/2019 Active aspirin enteric coated 81 MG TBECIndications:HT N, goal below 140/90 Take one pill daily 100 Tab 3 11/22/2019 Active Additional Information Patient taking differently:, Take one pill daily,Indications: blood pressure, Reported on 05/02/2022 oxygen IN GASIndications:Chr onic respiratory failure with hypoxia (HCC),PHT (pulmonary hypertension) (HCC) 1.5 lpm bled into CPAP and with activity/exertion 1 Each 03/31/2021 Active Potassium Chloride ER 10 MEQ Oral Tablet Extended Release Take 3 Tablets by mouth in the morning. 0 Active Spironolactone 25 MG Oral Tablet (Aldactone)Indicat ions:HTN, goal below 140/90,Chronic diastolic heart failure (HCC) Take 1/2 tablet daily 45 Tablet 3 09/30/2022 Active Prolia 60 MG/ML Subcutaneous Solution Prefilled Syringe (Denosumab) INJECT 60 MG (1 SYRINGE) UNDER THE SKIN EVERY 6 MONTHS 1 mL 1 10/07/2022 10/07/2023 Active Benzonatate 100 MG Oral CapsuleIndications :Bronchitis, complicated,Viral URI with cough Take 1-2 capsules three times daily as needed for cough. Do not cut, crush, or chew. 40 Capsule 1 10/06/2022 Active Albuterol Sulfate HFA 108 (90 Base) MCG/ACT Inhalation Aerosol SolutionIndication s:Acute bronchitis, antibiotics not indicated Inhale 2 Puffs by mouth every 4 hours as needed for Wheezing. 18 g 3 12/26/2022 Active Fluticasone Furoate-Vilanterol 100-25 MCG/ACT Inhalation Aerosol Powder Breath Activated (BREO ellipta)Indication s:Restrictive lung disease INHALE ONE PUFF BY MOUTH EVERY DAY 180 Each 3 11/01/2022 11/01/2023 Active Gabapentin 400 MG Oral Capsule (Neurontin) TAKE ONE CAPSULE BY MOUTH FOUR TIMES A DAY 400 Capsule 3 10/13/2022 10/13/2023 Active Benazepril HCl 40 MG Oral Tablet TAKE ONE TABLET BY MOUTH EVERY DAY 90 Tablet 3 09/04/2022 09/04/2023 Active Atorvastatin Calcium 20 MG Oral Tablet (Lipitor) TAKE ONE TABLET BY MOUTH EVERY DAY 90 Tablet 3 08/22/2022 09/10/2023 Active Doxazosin Mesylate 8 MG Oral Tablet TAKE ONE TABLET BY MOUTH AT BEDTIME 90 Tablet 3 08/01/2022 08/12/2023 Active Finasteride 5 MG Oral Tablet (Proscar)Indicatio ns:BPH with obstruction/lower urinary tract symptoms TAKE ONE TABLET BY MOUTH EVERY MORNING 90 Tablet 3 08/01/2022 08/12/2023 Active Atenolol 50 MG Oral Tablet (Tenormin)Indicati ons:HTN, goal below 140/90,PVC (premature ventricular contraction) TAKE ONE TABLET BY MOUTH EVERY MORNING AND TAKE ONE-HALF TABLET IN THE EVENING 135 Tablet 3 02/08/2023 02/08/2024 Active Diclofenac Sodium 1 % External Gel (Voltaren) APPLY 4 GRAMS TOPICALLY TO UPPER/LOWER BACK TWO TIMES A DAY NEEDED FOR PAIN 800 g 0 02/24/2023 Active Ipratropium-Albute rol 0.5-2.5 (3) MG/3ML Inhalation Solution (Duoneb)Indication s:Wheezing,Bronchi tis, complicated INHALE 1 VIAL (3ml) IN NEBULIZER 4 TIMES A DAY. 1080 mL 1 03/08/2023 Active Hospital, Clinic, or Other Facility Administered [...] as of this encounter (statuses as of 06/28/2023) Active Problems Problem Noted Date Diagnosed Date [...] DNR (do not resuscitate) 05/21/2023 Constipation 05/21/2023 [facility] (hard of hearing) 05/21/2023 Poor vision 05/21/2023 [...] vein thrombosis) 09/22/2015 PMR (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) 10/18/2012 jail current use of systemic steroids 10/18 History [...] as of this encounter (statuses as of 06/28/2023) Resolved Problems Problem Noted Date Diagnosed Date [...] lower extremities 11/24/2008 09/22/2015 Overview: seen at [facility] ER Anemia 05/13/2008 03/21/2017 Osteoarthritis of knee [...] as of this encounter (statuses as of 06/28/2023) Immunizations Name Administration Dates Next Due COVID-19 [...] Seasonal Influenza, Quadriva lent Hd (Fluzone Hd) 03/31/2022,03/23/2021 Seasonal Influenza, Quadriva lent, No Preserve, IM [...] deaf or do you have serious difficulty h earing? No 02/26/2018 Are you blind or do you have serious difficulty seeing, even when wearing glasses? No 02/26/2018 Do you have serious difficul ty walking or climbing stairs? (5 years old or older) No 02/26/2018 Do you have difficulty dress ing or bathing? (5 years old or older) No 02/26/2018 Because of a physical, menta l, or emotional condition, do you have difficulty doing errands alone such as visiting a doctor s office or shopping? (15 years old or older) No 02/27/20 18 Cognitive Status Response Date of Assessm ent Because of a physical, menta l, or emotional condition, do you have serious difficulty concentrating, remembering, or making decisions? (5 years old or older) No 02/26/2018 documented as of this encounter Miscellaneous Notes * Telephone Encounter - Jossie Potter LPN - 03/29/2023 1:15 PM EDT He is not due for Prolia until May * Telephone Encounter - Patricia Cunningham OSA - 03/29/2023 12:02 PM EDT Can someone please call [facility] specialty pharmacy for delivery of prolia for this patient [phone]. documented in this encounter Plan of Treatment Upcoming Encounters Date Type Department Care Team (Late st Contact Info) Description 06/29/2023 12:45 PM EST Nurse Only Family Practice [address] [place] [address] Nurse Deangelo [facility] [address] [place] [address] 06/29/2023 1:00 PM EST Office Visit Family Practice [address] [place] [address] Angel Quinteros DO [address] [place] [address] 07/03/2023 9:00 AM EST Scheduled Telephone Palliative Medicine, [address] 5th Floor [place] [address] [place], Nurse Palliative Medicine [facility] [address] [place], [place] [address] [address] 07/03/2023 2:00 PM EST Office Visit Ophthalmology, [facility] [address] [place] [address] Toney Davis DO [address] [place] [address] 07/06/2023 12:40 PM EST Office Visit Podiatry [facility] [address] [place] [address] Felicita Copeland DPM [address] [place] [address] 07/17/2023 4:00 PM EST Home Visit [facility] [address] [place] [address] Emeli Toledo, RN [address] [place] [address] 07/27/2023 12:40 PM EST Office Visit Gastroenterology, [facility] [address] [facility] [place] [phone] Trina Plaza DO [address] [place] [address] 08/03/2023 1:30 PM EST Office Visit Urology [facility] [place] [address] [place] [address] [place] [address] Ryan Cunningham MD [address] [place] [address] [place] [address] 09/11/2023 2:00 PM EDT Appointment Radiology, [facility] [address] [facility] [place] [phone] 09/11/2023 2:30 PM EDT PulmDiagnostic Pulmonary Function Lab [facility] [address] [facility] [address] [place], [address] [place] [address] 09/11/2023 3:00 PM EDT Office Visit Pulmonary Medicine [facility] [place] [address] [place] [phone] Saul Moscoso MD [address] [facility] [place] [address] 10/25/2023 2:40 PM EDT Office Visit [facility] [address] [facility] [place] [address] Mirza Mcgee III, MD [address] [facility] [place] [address] 05/02/2024 1:00 PM EST Office Visit Sleep Disorders, [address] [place] [address] Alesha John MD [address] [place] [address] [place] [address] Health Maintenance Due Date Last Done Comments Zoster Vaccines (1 of 2) 1954 COVID-19 Vaccine (3 - Pfizer risk series) 09/27/2020 08/30/2020, 08/02/2020 Depression Screening 02/03/2024 02/02/2023 O2 ASSESSMENT COMPLETED IN P AST YEAR FOR COPD 06/27/2024 06/27/2023 DXA Scan 11/02/2024 11/02/2021, 07/27, 04/11/2017, Additional history exists Diabetic Foot Exam Discontinued 12/08/2020, 0 03/06/2020, 03/04/2019, Additional history exists Diabetic Eye Exam Discontinued 10/11/2021, , 07/14/2021, Additional history exists Albumin/Creatinine Ratio Discontinued 10/26/2022, 02/25 Influenza Vaccine (FLU shot) Completed , 03/31/2022, 03/23/2021, Additional history exists documented as of this encounter Medical Devices Implanted Type Area Meat Selector Device Identifier Shelf Expiration Date Model / Serial / Lot Femur Nexgn E Right - [id number] [place]:Q[place] 1 [place] 05[place]12[place] [facility] [place] K[place] [employer] 02/24/2018 [id number] / / [id number] Femur Nexgn E Left - [id number] Implanted:Qty: 1 on 11/19/2008 [place] [facility] [place]: Knee [employer] [id number] / / [id number] Sut Steel 6 M654g - [id number] Implanted:Qty: 6 on 07/11/2011 [place] [facility] [place]/A: Chest DO NOT USE 01/09/2016 / / [id number] [employer]ision Lens [id number] Implanted:Qty: 1 on 11/07/2013 at OR [facility] Right: Eye 06/25/2016 [id number] / [id number] / [id number] documented as of this encounter Additional Health Concerns Infection Onset Date Last Indicated Resolved Time Respiratory Rule-Out 06/10/2023 06/10/2023 023 1:50 PM EST COVID-19 Rule-Out 06/10/2023 06/10/2023 06/10/2023 1:50 PM EST Respiratory Rule-Out 06/23/2023 06/23/2023 023 11:38 AM EST COVID-19 Rule-Out 06/23/2023 06/23/2023 06/23/2023 11:38 AM EST documented as of this encounter Advance Directives [...] Agen t (per Health Care Power of Waste Specialist document) [email or web address] Huma Hernández Adult Child First Alternate Health Care Agent (per Health Care Power of Waste Specialist document) [email or web address] Care Teams Body Maker Relationship Specialty Start Date End Date Angel Quinteros DO [address] [place] [address] PCP - General Family Medicine 06/14/23 documented as of this encounter
--- OUTSIDE RECORDS SUMMARY | 2023-07-04 20:34 | External Medical Summary | Summary of Care ---
Author Name Unknown Organization [facility] Address [address] [place] [address] Phone [phone] Care Team Providers Care Phonograph Needle Tip Maker Name Role Phone Neli Angel NINO Primary Care Provider Reason for Visit * Reason Comments Nausea * Auth/Cert Specialty Diagnoses / Procedures Referred By Raul t Referred To Contact Referral ID Status Reason Start Date Expiration Date Visits Re quested Visits Authorized [id number] Encounter Details Date Type Department Care Team (Latest Contact Info) Description 06/23/2023 10:04 AM EST - 06/26/2023 1:00 PM EST Hospital Encounter 5A [facility], [facility] 5th Floor [address] [place], [place] [id number] Izabel Doherty MD [address] [place], [place] [id number] Margarito Biggs MD [address] [place] [address] Kostas James DO [address] [place], [place] [id number] Various: EKG,KRAVS Discharge Disposition: Home - Self Care Allergies Active Allergy Reactions Criticality Noted Date [...] failure managing provider or [facility] at home pillowcase cutter 1 Each 0 9 Active aspirin enteric coated 81 MG TBECIndications:HT N, goal below 140/90 Take one pill daily 100 Tab 3 0 Active Additional Information Patient taking differently:, Take one pill daily,Indications: blood pressure, Reported on 05/02/2022 oxygen IN GASIndications:Chr onic respiratory failure with hypoxia (HCC),PHT (pulmonary hypertension) (HCC) 1.5 lpm bled into CPAP and with activity/exerti on 1 Each 1 Active Potassium Chloride ER 10 MEQ Oral Tablet Extended Release Take 3 Tablets by mouth in the morning. 0 Active Spironolactone 25 MG Oral Tablet (Aldactone)Indicat ions:HTN, goal below 140/90,Chronic diastolic heart failure (HCC) Take 1/2 tablet daily 45 Tablet 3 3 Active Prolia 60 MG/ML Subcutaneous Solution Prefilled Syringe (Denosumab) INJECT 60 MG (1 SYRINGE) UNDER THE SKIN EVERY 6 MONTHS 1 mL 1 3 024 Active Benzonatate 100 MG Oral CapsuleIndications :Bronchitis, complicated,Viral URI with cough Take 1-2 capsules three times daily as needed for cough. Do not cut, crush, or chew. 40 Capsule 1 3 Active Albuterol Sulfate HFA 108 (90 Base) MCG/ACT Inhalation Aerosol SolutionIndication s:Acute bronchitis, antibiotics not indicated Inhale 2 Puffs by mouth every 4 hours as needed for Wheezing. 18 g 3 3 Active Fluticasone Furoate-Vilanterol 100-25 MCG/ACT Inhalation Aerosol Powder Breath Activated (BREO ellipta)Indication s:Restrictive lung disease INHALE ONE PUFF BY MOUTH EVERY DAY 180 Each 3 3 024 Active Gabapentin 400 MG Oral Capsule (Neurontin) TAKE ONE CAPSULE BY MOUTH FOUR TIMES A DAY 400 Capsule 3 3 024 Active Benazepril HCl 40 MG Oral Tablet TAKE ONE TABLET BY MOUTH EVERY DAY 90 Tablet 3 3 024 Active Atorvastatin Calcium 20 MG Oral Tablet (Lipitor) TAKE ONE TABLET BY MOUTH EVERY DAY 90 Tablet 3 3 024 Active Doxazosin Mesylate 8 MG Oral Tablet TAKE ONE TABLET BY MOUTH AT BEDTIME 90 Tablet 3 3 024 Active Finasteride 5 MG Oral Tablet (Proscar)Indicatio ns:BPH with obstruction/lower urinary tract symptoms TAKE ONE TABLET BY MOUTH EVERY MORNING 90 Tablet 3 3 024 Active Atenolol 50 MG Oral Tablet (Tenormin)Indicati ons:HTN, goal below 140/90,PVC (premature ventricular contraction) TAKE ONE TABLET BY MOUTH EVERY MORNING AND TAKE ONE-HALF TABLET IN THE EVENING 135 Tablet 3 3 024 Active Diclofenac Sodium 1 % External Gel (Voltaren) APPLY 4 GRAMS TOPICALLY TO UPPER/LOWER BACK TWO TIMES A DAY NEEDED FOR PAIN 800 g 0 3 Active Ipratropium-Albute rol 0.5-2.5 (3) MG/3ML Inhalation Solution (Duoneb)Indication s:Wheezing,Bronchi tis, complicated INHALE 1 VIAL (3ml) IN NEBULIZER 4 TIMES A DAY. 1080 mL 1 3 Active Omeprazole 20 MG Oral Capsule Delayed Release (PriLOSEC) TAKE ONE CAPSULE BY MOUTH TWICE A DAY 180 Capsule 3 3 024 Active amLODIPine Besylate 5 MG Oral Tablet (Norvasc)Indicatio ns:HTN, goal below 140/90 TAKE ONE TABLET BY MOUTH EVERY DAY 100 Tablet 1 3 024 Active Furosemide 20 MG Oral Tablet (Lasix)Indications :HTN, goal below 140/90,Chronic diastolic heart failure (HCC) TAKE ONE TABLET BY MOUTH EVERY MORNING. MAY TAKE ONE ADDITIONAL TABLET NEEDED FOR FLUID RETENTION, WEIGHT GAIN 100 Tablet 3 3 Active busPIRone HCl 5 MG Oral Tablet (Buspar) Take 1 Tablet by mouth in the morning and 1 Tablet before bedtime. 60 Tablet 6 3 Active predniSONE 5 MG Oral Tablet (Deltasone) TAKE ONE TABLET BY MOUTH DAILY 100 Tablet 0 3 Active CPAP 10 cm every night at bedtime. W/oxygen 1.5 lpm bled into cpap 0 Active Docusate Sodium 100 MG Oral Capsule (Colace) Take 1 Capsule by mouth in the morning and 1 Capsule before bedtime. 30 Capsule 0 3 Active Polyethylene Glycol 3350 17 GM Oral Packet (Miralax) Take 1 Packet by mouth in the morning. 14 Each 0 3 Active traMADol HCl 50 MG Oral Tablet (Ultram)Indication s:Prostate cancer metastatic to bone (HCC) Take 1 Tablet by mouth every 6 hours as needed for Pain, Severe. Take 1 tablet every 6 hours around the clock to control pain. 60 Tablet 0 3 Active Metoclopramide HCl 5 MG Oral Tablet (Reglan)Indication s:Metastases to the liver (HCC) Take 1 or 2 tablets 3 times a day before meals to control nausea. 90 Tablet 3 3 Active Ondansetron 4 MG Oral Tablet Disintegrating (Zofran) Dissolve 1 Tablet on tongue every 8 hours as needed for Nausea. 20 Tablet 0 3 Active Prochlorperazine Maleate 10 MG Oral Tablet (Compazine) Take 1 Tablet by mouth every 6 hours as needed for Nausea. 20 Tablet 1 3 Active Sennosides-Docusat e Sodium 8.6-50 MG Oral Tablet (Senokot-S) Take 1 Tablet by mouth daily as needed for Constipation. 30 Tablet 0 3 Active Vitamin D 25 MCG (1000 UT) [...] before June 27, 2023. 30 Patch 0 4 Active OLANZapine 5 MG Oral Tablet Disintegrating (zyPREXA zyDIS) Place 1 Tablet on tongue in the morning. 30 Tablet 0 4 Active Nitrofurantoin Monohyd Macro 100 MG Oral Capsule (Macrobid) Take 1 Capsule by mouth in the morning and 1 Capsule before bedtime - do all this for 4 days - take with food. 8 Capsule 0 3 024 Discontinued Lidocaine 4 % External Patch (Aspercreme) Place 1 Patch over 12 hours topically on the skin in the morning. 30 Patch 0 4 024 Discontinued(Re fill) OLANZapine 5 MG Oral Tablet Disintegrating (zyPREXA zyDIS) Place 1 Tablet on tongue in the morning. 30 Tablet 0 4 Discontinued(Re fill) Hospital, Clinic, or Other Facility Administered Medication [...] DNR (do not resuscitate) 05/21/2023 Constipation 05/21/2023 CHINIK (hard of hearing) 05/21/2023 Poor vision 05/21/2023 [...] vein thrombosis) 09/22/2015 PMR (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) 10/18/2012 residential current use of systemic steroids 10/18 History [...] seen at [facility] ER Anemia 05/13/2008 03/21/2017 Osteoarthritis of knee [...] Sign Reading Time Taken Comments Blood Pressure 152/76 06/26/2023 11:27 AM EST Pulse 58 06/26/2023 11:27 AM EST Temperature 36.5 C (97.7 F) 06/26/2023 11:[address] Respiratory Rate 18 06/26/2023 11:27 AM EST Oxygen Saturation 95% 06/26/2023 11:27 AM EST Inhaled Oxygen Concentration - - Weight 96.6 kg (213 lb) 06/26/2023 7:00 AM EST Height 172.7 cm (5' 8") 06/23/2023 2:29 PM EST Body Mass Index 32.39 06/23/2023 2:29 PM EST documented in this encounter Functional [...] No 06/23/2023 documented as of this encounter Discharge Summaries * Kostas James, DO - 06/26/2023 11:31 AM EST [address] [id number] Admission Date: 06/23/2023 Discharge Date: 06/26/2023 RECOMMENDED TO DO FOR NEXT PROVIDER(S): Routine follow up REASON(S) FOR MEDICATION CHANGE(S): Zyprexa added in the morning to come back nausea, would love to see this medicine DC in the future DISPOSITION ON DISCHARGE: home Active Hospital Problems Diagnosis *Principal Diagnosis - Intractable nausea and vomiting Hypokalemia Metastasis to liver (HCC) 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 ADMISSION HISTORY & PHYSICAL EXAM (focused): Per admit H&P Patient with PMHX: NHL in 2011, TRUS with carcinoma of the prostate (2015) dx with bone metastases in 2020 tx with Depo-Lupron, now with liver mets suggestive of neuroendocrine differentiation of previous adenocarcinoma of prostate, chronic diastolic HF, HLD, PMR on prednisone, and as listed who presents to [facility]- ED for intractable N/V, right flank/low back pain and abdominal pain x 24-48 hours. Unable to tolerate liquids last evening, did have some sips this morning. Last emesis while in the ED.He would like to try and take small sips now. Moving his bowels. No fever, chills, cough/cold sx, chest pain, sob. + leg swelling. He recently finished either Macrobid or Augmentin for UTI- most recent urine cx (06/10/2023) + enterococcus Continues to have urinary frequency and concentrated urine. No dysuria. took another urine sample to PCP yesterday. He was seen by [facility] provider this morning who advised ED evaluation as he was unable to tolerate PO intake and his home medications for nausea and pain. He recently had liver biopsy and is awaiting appt with Hem/Onc for plan of care. He is being followed by Palliative at [facility]. Most recent admission 06/10-06/13/2023 for intractable nausea, vomiting, electrolytes derangements,and UTI. In the ED, CT abd/pelvis with IV contrast- read as no acute findings, multiple liver metastasis andbone mets relatively unchanged, necrotic abdominal lymphadenopathy and mild retroperitoneal lymphadenopathy likely metastatic. Questionable peritoneal mets unchanged. Labs remarkable for K 2.9, procal > 100, UA with Ketones, trace blood and protein. He was given K riders x total of 20 mEq, NSS 2L, Zofran 4 mg IV, Benadryl 25 mg IV and Cefepime. Patient continued to be symptomatic, therefore; patient admitted to Hospital Medicine. BP: 149 mmHg/76 mmHg (06/23/23 1300) Pulse: 95 (06/23/23 1300) Temp: 36.72 C (06/23/23 1155) Resp: 20 (06/23/23 1300) SpO2: 98 % (06/23/23 1012) General: Pt sitting in chair at side of bed, alert, appears in pain. CHINIK. Difficult seeing Head: Normocephalic, No masses, lesions, tenderness or abnormalities Eye Exam: PERRLA, EOMI, Conjunctiva are pink and non-injected, sclera clear Ears: External ears normal Oropharynx: mucous membranes dry without erythema or exudates Neck: supple, nontender, no cervical adenopathy palpable Heart: regular rate & rhythm and no murmur appreciated Lungs: no respiratory distress, CTA, without wheeze, rhonchi or crackles Abdomen: + hypoactive BS, soft, + generalized tenderness, slightly distended, no rebound tendernessor guarding Lower Extremities: +2 pitting edema, no calf tenderness,+ stasis changes noted HOSPITAL COURSE (focused): Patient came in secondary to metastatic neuroendocrine tumor with intractable nausea and vomiting and hypokalemia. His electrolytes were repleted I gave him 1 dose of Emendand this seems to have broken his nausea cycle. I also added Zyprexa twice daily but I will continue that as on a daily basis in the morning and hopefully we can discontinue that in the future. Patient will go home and follow up with his PCP and oncologist. Operations & Procedures: none Complications: none significant Significant Lab and Imaging Results: As mentioned above Results Pending at Discharge: Lab Results Pending at Discharge: None MEDICATION UPDATES AT DISCHARGE START taking these medications INSTRUCTIONS Lidocaine 4 % Ptch Commonly known as: Aspercreme Start taking on: June 27, [address] Place 1 Patch over 12 hours topically on the skin in the morning. OLANZapine ODT 5 MG Tbdp Commonly known as: zyPREXA zyDIS Place 1 Tablet on tongue in the morning. CONTINUE taking these medications INSTRUCTIONS Acetaminophen 500 MG Tablet Commonly known as: Tylenol Notes to patient: Used to ease pain and fever Take 2 Tablets by mouth every 8 hours as needed for Pain, Breakthrough. albuterol HFA 108 (90 BASE) MCG/ACT inhaler Notes to patient: Used to open the airways in lung diseases where spasm may cause breathing problems and prevent breathing problems that happen with exercise Inhale 2 Puffs by mouth every 4 hours as needed for Wheezing. albuterol-ipratropium 2.5-0.5 MG/3ML nebulizer solution Commonly known as: Duoneb Notes to patient: Used to open the airways in lung diseases where spasm may cause breathing problems and prevent breathing problems that happen with exercise INHALE 1 VIAL (3ml) IN NEBULIZER 4 TIMES A DAY. amLODIPine 5 MG Tablet Commonly known as: Norvasc Notes to patient: Used to treat high blood pressure and some types of chest pain TAKE ONE TABLET BY MOUTH EVERY DAY aspirin enteric coated 81 MG Tbec Notes to patient: Assists in lowering the risk of heart attack and stroke by preventing blood clotsfrom forming Take one pill daily Atenolol 50 MG Tablet Commonly known as: Tenormin Notes to patient: Used to treat high blood pressure, stable angina (chest pain), and after a heart attack to lower the risk of TAKE ONE TABLET BY MOUTH EVERY MORNING AND TAKE ONE-HALF TABLET IN THE EVENING atorvaSTATin 20 MG Tablet Commonly known as: Lipitor Notes to patient: Used to lower bad cholesterol, lower triglycerides, raise good cholesterol (HDL),and slow the progression of heart disease TAKE ONE TABLET BY MOUTH EVERY DAY Benazepril HCl 40 MG Tablet Notes to patient: Used to treat high blood pressure TAKE ONE TABLET BY MOUTH EVERY DAY Benzonatate 100 MG Capsule Commonly known as: Tessheryl Wilcox Notes to patient: Used to relieve coughing Take 1-2 capsules three times daily as needed for cough. Do not cut, crush, or chew. BREO ellipta 100-25 MCG/ACT Aepb Generic drug: fluticasone furoate-vilanterol Notes to patient: Used to treat asthma and COPD (chronic obstructive pulmonary disease). This drug is not to be used to treat intense flare-ups of shortness of breath. Use a rescue inhaler. Be sure to rinse mouth after use INHALE ONE PUFF BY MOUTH EVERY DAY busPIRone 5 MG Tablet Commonly known as: Buspar Notes to patient: Used to treat anxiety Take 1 Tablet by mouth in the morning and 1 Tablet before bedtime. CPAP Notes to patient: Provides gentle pressure to keeps your airways open as you sleep, to breathe easier 10 cm every night at bedtime. W/oxygen 1.5 lpm bled into cpap Diclofenac 1 % Gel Commonly known as: Voltaren Notes to patient: Used to ease pain and treat some types of arthritis APPLY 4 GRAMS TOPICALLY TO UPPER/LOWER BACK TWO TIMES A DAY NEEDED FOR PAIN DIURETIC TITRATION PLAN If no improvement on day 3, contact heart failure managing provider or [facility] at home pillowcase cutter Docusate Sodium 100 MG Capsule Commonly known as: Colace Notes to patient: Used to treat constipation Take 1 Capsule by mouth in the morning and 1 Capsule before bedtime. Doxazosin Mesylate 8 MG Tablet Notes to patient: Used to treat high blood pressure and the signs of an enlarged prostate TAKE ONE TABLET BY MOUTH AT BEDTIME Dulcolax 5 MG Tbec Generic drug: Bisacodyl Notes to patient: Used to treat constipation Take 1 Tablet by mouth daily as needed for Constipation. Finasteride 5 MG Tablet Commonly known as: Proscar Notes to patient: Used to treat the signs of an enlarged prostate. It may take a few months to see the full effect. TAKE ONE TABLET BY MOUTH EVERY MORNING Furosemide 20 MG Tablet Commonly known as: Lasix Notes to patient: Used to get rid of extra fluid and treat high blood pressure (Diuretic/water pill) TAKE ONE TABLET BY MOUTH EVERY MORNING. MAY TAKE ONE ADDITIONAL TABLET NEEDED FOR FLUID RETENTION, WEIGHT GAIN Gabapentin 400 MG Capsule Commonly known as: Neurontin Notes to patient: Used to treat painful nerve diseases and to help control certain kinds of seizures TAKE ONE CAPSULE BY MOUTH FOUR TIMES A DAY metoclopramide 5 MG Tablet Commonly known as: Reglan Notes to patient: Used to treat or prevent heartburn, upset stomach and throwing up, gastroesophageal reflux disease (GERD; acid reflux), and treat a slow moving GI (gastrointestinal) tract in some people Take 1 or 2 tablets 3 times a day before meals to control nausea. omeprazole 20 MG Cpdr Commonly known as: PriLOSEC Notes to patient: Used to treat or prevent GI (gastrointestinal) ulcers, gastroesophageal reflux disease (GERD; acid reflux), heartburn, syndromes caused by lots of stomach acid, and ulcers of the esophagus TAKE ONE CAPSULE BY MOUTH TWICE A DAY ondansetron ODT 4 MG Tbdp Commonly known as: Zofran Notes to patient: Used to treat nausea and vomiting Dissolve 1 Tablet on tongue every 8 hours as needed for Nausea. oxygen Gas Notes to patient: Used to ease shortness of breath and promote oxygenation 1.5 lpm bled into CPAP and with activity/exertion Polyethylene Glycol 3350 packet Commonly known as: Miralax Notes to patient: Used to treat constipation Take 1 Packet by mouth in the morning. potassium chloride ER 10 MEQ Tbcr Notes to patient: Used to treat or prevent low potassium levels Take 3 Tablets by mouth in the morning. predniSONE 5 MG Tabs Commonly known as: Deltasone Notes to patient: Used for many health problems like allergy signs, asthma, adrenal gland problems,blood problems, skin rashes, or swelling problems TAKE ONE TABLET BY MOUTH DAILY prochlorperazine 10 MG Tablet Commonly known as: Compazine Notes to patient: Used to treat anxiety, nausea, and vomiting Take 1 Tablet by mouth every 6 hours as needed for Nausea. Prolia 60 MG/ML injection Generic drug: Denosumab Notes to patient: Used to treat soft, brittle bones (osteoporosis), high calcium levels in patientswith cancer, and for bone growth INJECT 60 MG (1 SYRINGE) UNDER THE SKIN EVERY 6 MONTHS Senna Plus 8.6-50 MG per tablet Generic drug: senna-docusate Notes to patient: Used to treat constipation Take 1 Tablet by mouth daily as needed for Constipation. Spironolactone 25 MG Tablet Commonly known as: Aldactone Take 1/2 tablet daily traMADol 50 MG Tablet Commonly known as: Ultram Notes to patient: Used to ease pain Take 1 Tablet by mouth every 6 hours as needed for Pain, Severe. Take 1 tablet every 6 hours aroundthe clock to control pain. Vitamin D 25 MCG (1000 UT) Tabs Notes to patient: Used to treat or prevent vitamin D deficiency Take by mouth daily. STOP taking these medications Nitrofurantoin Monohydrate Macrocrystals 100 MG Capsule Commonly known as: Macrobid SCHEDULED FOLLOW-UP: Future Appointments Appt Date/Time Provider Department 06/27/2023 12:30 PM Emeli Toledo RN [facility] 06/28/2023 1:00 PM Valeria Nath MD Palliative Medicine [facility] 06/29/2023 12:45 PM Duck, Nurse [facility] [address] 06/29/2023 1:00 PM Angel Snyder DO [address] 07/06/2023 12:40 PM Felicita Copeland DPM Podiatry [facility] 07/27/2023 12:40 PM Trina Plaza DO [facility] 08/03/2023 1:30 PM Ryan Cunningham [facility] 09/11/2023 2:00 PM XR1 [facility] Radiology, [facility] 09/11/2023 2:30 PM Trey, Pft Pulmonary Function Lab [facility] 09/11/2023 3:00 PM Saul Moscoso MD Pulmonary Medicine [facility] 10/25/2023 2:40 PM Mirza Mcgee III, MD [facility] 05/02/2024 1:00 PM Alesha John MD Sleep Disorders, [facility] Other Information Indwelling Devices: LINES ALL Duration Peripheral Line Left Wrist 22 Gauge 1 day Vital Signs (last recorded): Most Recent Systolic BP: 152 mmHg (06/26/23 1127) Most Recent Diastolic BP: 76 mmHg (06/26/23 1127) Pulse: 58 (06/26/23 1127) Resp: 18 (06/26/23 1127) Most Recent Temperature: 36.5 C (06/26/231126) Weight: 96.6 kg (213 lb) (06/26/23 0700) SpO2: 95 % (06/26/231126) Allergies: Amoxicillin, Oxycodone, and Percocet [oxycodone-acetaminophen] Activity: as tolerated Diet: age appropriate diet Code status (this admission): No Code Discussion of adv directives occurred with - adult: Patient Condition on Discharge: stable Isolation status: None Cognition: normal HOSPITAL CONSULTS ORDERED: PALLIATIVE MEDICINE CONSULT IP CARE MANAGEMENT CONSULT IP ADULT PHYSICAL THERAPY CONSULT IP ADULT OCCUPATIONAL THERAPY CONSULT IP REFERRING PHYSICIAN: Ref: [id number]] NO STREET ADDRESS AVAILABLE None (office) None (fax) PRIMARY CARE PROVIDER: PCP: Angel Snyder DO [address] [place] [phone] (office) [phone] (fax) Note: To contact a physician responsible for this patients hospital care, please call [phone] outdoors [phone]. I spent a total of 45 minutes coordinating, documenting, and providing care for this patient excluding time spent in the performance of separately billed services. documented in this encounter Discharge Instructions * Discharge Instr - AVS* Kostas James DO - 06/26/2023 11:31 AM EST Discharge Date: 06/26/2023 The information below provides you with the instructions and the list of medications you need to betaking following discharge from the hospital. If you have any questions, please ask before leaving. If you have questions after leaving, you can reach us at the numbers below. YOUR HOSPITAL PROVIDERS: Discharging Provider: Kostas James DO Provider Department: Hospital Medicine To reach this Provider Monday through Monday (8:00 AM to 4:30 PM) for any questions or test results: Call [phone] For after-hours concerns: Call [phone] and have your provider paged, or the provider director of pulmonary unit for the Department of Hospital Medicine paged. Please note, the discharging provider will not be able to provide you with any medications refills. Please discuss these with your primary care provider. Worsening Symptoms: If you have new symptoms, or your symptoms get worse, please contact your Discharge Provider or Primary Care Provider (PCP). If these providers are not available, you can go to your local [facility] or [facility] Care Clinic during their business hours. In an EMERGENCY situation: Call 911 or go to the nearest emergency room. A BRIEF SUMMARY OF YOUR HOSPITAL STAY: You came to the hospital with: complaint of nausea and vomiting Your main diagnosis at discharge was: Chronic nausea and vomiting Operations & Procedures performed: none Complications: none significant Inpatient test results that are pending at discharge: none Advance Directive Documented: Advance Directive Does the Patient have an Advance Directive? Yes YOUR FOLLOW UP APPOINTMENTS: Primary Care Provider Information: PCP: Angel Snyder DO [address] [place] [phone] (office) [phone] (fax) An appointment was requested with your PCP (Angel Snyder DO) within 3 days. (Please take this form to this visit with your primary care physician.) You need the following studies in the future: Routine follow-up INSTRUCTIONS: Diet: Normal diet Activity: No restrictions and As tolerated documented in this encounter Progress Notes * Jaya Griffin RPh - 06/26/2023 12:04 PM EST PHARMACY DISCHARGE MEDICATION RECONCILIATION REVIEW [address] [facility] [place] [address] Name: Dedrick Peters Location: [facility] [address] Date: 06/26/2023 Time: 12:04 PM This discharge medication reconciliation was reviewed by a pharmacist and no corrections or interventions were required. 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 Patient did not meet up with Oncologist to discuss this result yet but are aware of it. Denies nausea and vomiting since his Emend dose yesterday Assessment and Plan Intractable nausea and vomiting Hypokalemia Metastasis to liver (HCC) Active Problems: Dyslipidemia, goal LDL below 70 Prostate cancer metastatic to bone (HCC) Type 2 diabetes mellitus with hemoglobin A1c goal of less than 8.0% (HCC) Chronic diastolic heart failure (HCC) COPD, group C, by GOLD 2017 classification (HCC) DNR (do not resuscitate) Patient with PMHX: NHL in 2011, TRUS with carcinoma of the prostate (2015) dx with bone metastases in 2020 tx with Depo-Lupron, now with liver mets suggestive of neuroendocrine differentiation of previous adenocarcinoma of prostate, chronic diastolic HF, HLD, PMR on prednisone p/w intractable N/V, abdominal pain, right flank pain with hypoK. Replace electrolytes as warranted Gentle IV hydration. Closely monitor volume status. He does have some LE edema. PRN antiemetics- zofran IV if ineffective may try compazine IV or Phenergan supp, Emend Pain control- APAP IV mild pain, Toradol IV for moderate pain and Morphine IV for severe pain IV PPI Trial PO fluids and advance diet as tolerated Bowel regimen Palliative care consult for symptom control Pt need f/u Hem/Onc OP appointment when d/c CM consult Continue Cefepime for now d/t procal > 100- no clear infectious source identified at this time. He did have a recent + urine cx and completed course of abx. 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 in the AM with hold parameters on diuretics and antiHTN medications ROS: -Nausea, -Vomiting, No Diarrhea, No Fever, No Chills, No Chest Pain, No SOB, No GROVES, No Cough, No Sputum, No Melena, No Hematuria, No Abd Pain, No Headache, No Visual Changes, No Weight Loss PHYSICAL EXAMINATION: Gen: AAO x 3 NAD Afeb, Pleasant HEENT: NCAT, PERRLA, EOMI, Anicteric Sclera, No Pharyngeal Erythema Neck: Supple wo JVD or Adenopathy, No Bruit Lungs:CTAB No RRW Chest: No S4, +S1/S2, No S4, No Murmurs, No Rubs, No Gallops, No Ectopy Abd: Soft Non Tender, Non Distended, BS+, No HSM, No Rebound, No Rigidity, No Guarding Ext: No CCE Musc: FROM x 4 Skin: Warm, Dry, Intact without rashes Neuro: Non focal, cigar packer and sorter intact, DTR/Motor/Sensory and Strength all WNL Psych: Normal BP 158/87 | Pulse 62 | Temp 36.2 C (97.2 F) (Temporal Artery) | Resp 18 | Ht 1.727 m (5' 8") | Wt 94.6 kg (208 lb 9.6 oz) | SpO2 97% | BMI 31.72 kg/m | BSA 2.13 m A total of 35 minutes was spent providing care for this patient on the unit/floor. More than half of the time was spent counseling and coordinating care for the patient. STUDIES: Labs and other studies reviewed PHARMACOLOGIC VTE PROPHYLAXIS: Enoxaparin CODE STATUS: No Code EXPECTED DISCHARGE DATE: 06/26/2023 * Kostas James DO - 06/24/2023 11:13 AM EST Images from the original note were not included. 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 Patient did not meet up with Oncologist to discuss this result yet but are aware of it. Still has intractable nausea Assessment and Plan Intractable nausea and vomiting Hypokalemia Metastasis to liver (HCC) Active Problems: Dyslipidemia, goal LDL below 70 Prostate cancer metastatic to bone (HCC) Type 2 diabetes mellitus with hemoglobin A1c goal of less than 8.0% (HCC) Chronic diastolic heart failure (HCC) COPD, group C, by GOLD 2017 classification (HCC) DNR (do not resuscitate) Patient with PMHX: NHL in 2011, TRUS with carcinoma of the prostate (2016) dx with bone metastases in 2020 tx with Depo-Lupron, now with liver mets suggestive of neuroendocrine differentiation of previous adenocarcinoma of prostate, chronic diastolic HF, HLD, PMR on prednisone p/w intractable N/V, abdominal pain, right flank pain with hypoK. Check phosphate level Replace electrolytes as warranted Gentle IV hydration. Closely monitor volume status. He does have some LE edema. PRN antiemetics- zofran IV if ineffective may try compazine IV or Phenergan supp, Emend Pain control- APAP IV mild pain, Toradol IV for moderate pain and Morphine IV for severe pain IV PPI Trial PO fluids and advance diet as tolerated Bowel regimen Palliative care consult for symptom control Pt need f/u Hem/Onc OP appointment when d/c CM consult Continue Cefepime for now d/t procal > 100- no clear infectious source identified at this time. He did have a recent + urine cx and completed course of abx. 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 in the AM with hold parameters on diuretics and antiHTN medications ROS: +Nausea, +Vomiting, No Diarrhea, No Fever, No Chills, No Chest Pain, No SOB, No GROVES, No Cough, No Sputum, No Melena, No Hematuria, No Abd Pain, No Headache, No Visual Changes, No Weight Loss PHYSICAL EXAMINATION: Gen: AAO x 3 NAD Afeb, Ple[place] HEENT: NCAT, PERRLA, EOMI, Anicteric Sclera, No Pharyngeal Erythema Neck: Supple wo JVD or Adenopathy, No Bruit Lungs:CTAB No RRW Chest: No S4, +S1/S2, No S4, No Murmurs, No Rubs, No Gallops, No Ectopy Abd: Soft Non Tender, Non Distended, BS+, No HSM, No Rebound, No Rigidity, No Guarding Ext: No CCE Musc: FROM x 4 Skin: Warm, Dry, Intact without rashes Neuro: Non focal, cigar packer and sorter intact, DTR/Motor/Sensory and Strength all WNL Psych: Normal Objective Physical Exam Most Recent Vital Signs: BP: 181 mmHg/95 mmHg (06/24/23 0704) Pulse: 77 (06/24/23 0740) Temp: 36.72 C (06/24/23 0704) Resp: 18 (06/24/23 0730) SpO2: 95 % (06/24/23 0730) A total of 75 minutes was spent providing care for this patient on the unit/floor. More than half of the time was spent counseling and coordinating care for the patient. STUDIES: Encounter Orders Labs and other studies reviewed PHARMACOLOGIC VTE PROPHYLAXIS: Enoxaparin CODE STATUS: No Code EXPECTED DISCHARGE DATE: 06/26/2023 documented in this encounter H&P Notes * Radha Rajput CRNP - 06/23/2023 12:37 PM EST Images from the original note were not included. [facility] 13/X PRESENTING PROBLEM: intractable N/V HPI: Patient with PMHX: NHL in 2011, TRUS with carcinoma of the prostate (2015) dx with bone metastases in 2020 tx with Depo-Lupron, now with liver mets suggestive of neuroendocrine differentiation of previous adenocarcinoma of prostate, chronic diastolic HF, HLD, PMR on prednisone, and as listed who presents to [facility]ED for intractable N/V, right flank/low back pain and abdominal pain x 24-48 hours. Unable to tolerate liquids last evening, did have some sips this morning. Last emesis while in the ED. He would like to try and take small sips now. Moving his bowels. No fever, chills, cough/cold sx, chest pain, sob. + leg swelling. He recently finished either Macrobid or Augmentin for UTI- most recent urine cx (06/10/2023) + enterococcus Continues to have urinary frequency and concentrated urine. No dysuria. took another urine sample to PCP yesterday. He was seen by [facility] provider this morning who advised ED evaluation as he was unable to tolerate PO intake and his home medications for nausea and pain. He recently had liver biopsy and is awaiting appt with Hem/Onc for plan of care. He is being followed by Palliative at [facility]. Most recent admission 06/10-06/13/2023 for intractable nausea, vomiting, electrolytes derangements,and UTI. In the ED, CT abd/pelvis with IV contrast- read as no acute findings, multiple liver metastasis andbone mets relatively unchanged, necrotic abdominal lymphadenopathy and mild retroperitoneal lymphadenopathy likely metastatic. Questionable peritoneal mets unchanged. Labs remarkable for K 2.9, procal > 100, UA with Ketones, trace blood and protein. He was given K riders x total of 20 mEq, NSS 2L, Zofran 4 mg IV, Benadryl 25 mg IV and Cefepime. Patient continued to be symptomatic, therefore; patient admitted to Hospital Medicine. Subjective Patient's past history, medications, and allergies were reviewed. Objective Physical Exam Most Recent Vital Signs: BP: 149 mmHg/76 mmHg (06/23/23 1300) Pulse: 95 (06/23/23 1300) Temp: 36.72 C (06/23/23 1155) Resp: 20 (06/23/23 1300) SpO2: 98 % (06/23/23 1012) General: Pt sitting in chair at side of bed, alert, appears in pain. CH[place]. Difficult seeing Head: Normocephalic, No masses, lesions, tenderness or abnormalities Eye Exam: PERRLA, EOMI, Conjunctiva are pink and non-injected, sclera clear Ears: External ears normal Oropharynx: mucous membranes dry without erythema or exudates Neck: supple, nontender, no cervical adenopathy palpable Heart: regular rate & rhythm and no murmur appreciated Lungs: no respiratory distress, CTA, without wheeze, rhonchi or crackles Abdomen: + hypoactive BS, soft, + generalized tenderness, slightly distended, no rebound tendernessor guarding Lower Extremities: +2 pitting edema, no calf tenderness,+ stasis changes noted STUDIES: Encounter Orders Labs and other studies reviewed with pertinent findings noted below: CT ABD/PELVIS W IV CONTRAST - WO ORAL CONTRAST Final Result PROCEDURE INFORMATION: Exam: CT Abdomen And Pelvis With Contrast Exam date and time: 06/23/2023 11:20 AM Age: 88 years old Clinical indication: Abdominal pain; Generalized; Additional info: Generalized abdominal pain; CA history; Vomiting TECHNIQUE: Imaging protocol: Computed tomography of the abdomen and pelvis with contrast. Radiation optimization: All CT scans at this facility use at least one of these dose optimization techniques: automated exposure control; mA and/or kV adjustment per patient size (includes targeted exams where dose is matched to clinical indication); or iterative reconstruction. Contrast material: OPTIRAY; Contrast volume: 100 ml; Contrast route: INTRAVENOUS (IV); REPORTING DATA: Count of CT and Cardiac NM exams in prior 12 months: This patient has received 6 known CTs and 0 known cardiac nuclear medicine studies in the 12 months prior to the current study. COMPARISON: CT ABD/PELVIS WO IV/ORAL CONTRAST 06/10/2023 5:06 PM FINDINGS: Lungs: Chronic bronchiectasis posteriorly right lung base and mild bibasilar distal lung changes, stable. Heart: Heart is enlarged. Diaphragm: Small hiatal hernia. Liver: Multiple hypodense liver lesions better demonstrated on this contrast enhanced study measuring up to 2 cm highly suspicious for liver metastasis. Gallbladder and bile ducts: Normal. No calcified stones. No ductal dilation. Pancreas: Unremarkable. Main pancreatic duct is not significantly dilated. Spleen: Normal. No splenomegaly. Adrenal glands: Normal. No mass. Kidneys and ureters: Normal. No hydronephrosis. Stomach and bowel: Unremarkable. No obstruction. No mucosal thickening. Appendix: No evidence of appendicitis. Intraperitoneal space: 3.5 cm cystic lesion anterior to the left lobe of the liver within the peritoneal cavity as well as 2 small partially calcified solid nodules within the peritoneal cavity, possibly metastatic in nature. Vasculature: Scattered atherosclerotic changes of the abdominal aorta and iliac vessels. No aortic aneurysm. Lymph nodes: Enlarged necrotic lymph nodes within the upper abdomen measuring up to 3 cm likely metastatic in nature. Mild right periaortic lymphadenopathy more nonspecific, stable. Urinary bladder: Unremarkable as visualized. Reproductive: Prostate gland is mildly enlarged. Bones/joints: Diffuse mixed osteolytic/sclerotic bone changes T11 vertebral body with mild compression deformity unchanged likely metastatic in nature. Scattered small radiolucent bone lesions within the lower thoracic and lumbar spine suspicious for bone metastasis. Superimposed degenerative changes of the lumbar spine, stable. Soft tissues: Diastasis of the lower abdominal wall with small umbilical hernia unchanged. IMPRESSION IMPRESSION: 1. No acute findings within the abdomen or pelvis. 2. 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 3. Necrotic abdominal lymphadenopathy and mild retroperitoneal lymphadenopathy likely metastatic in nature. Questionable peritoneal metastasis unchanged. 4. Additional nonemergent findings as above. THIS DOCUMENT HAS BEEN ELECTRONICALLY SIGNED BY JACK LYNN MD Results for orders placed or performed during the hospital encounter of 06/23/23 COMPREHENSIVE METABOLIC PANEL Result Value Ref Range BUN 10 6 - 20 mg/dL Creatinine 0.7 0.6 - 1.2 mg/dL Estimated Glomerular Filtration Rate 88 >=60 mL/min Sodium 140 135 - 146 mmol/L Potassium 2.9 (L) 3.5 - 5.1 mmol/L Chloride 99 98 - 107 mmol/L CO2 25 22 - 32 mmol/L Anion Gap 16 (H) 7 - 15 mmol/L Glucose 120 70 - 120 mg/dL Albumin 3.8 3.8 - 5.0 g/dL AST 62 (H) 10 - 50 U/L Alkaline Phosphatase 192 (H) 35 - 130 U/L Bilirubin, Total 1.0 <=1.2 mg/dL Calcium 8.8 8.4 - 10.2 mg/dL Protein 6.7 6.0 - 8.3 g/dL ALT 35 10 - 50 U/L PT INR Result Value Ref Range Prothrombin Time 14.6 11.6 - 15.2 seconds INR 1.1 0.8 - 1.2 LIPASE Result Value Ref Range Lipase 39 13 - 60 U/L LACTATE Result Value Ref Range Lactate 1.7 0.4 - 2.0 mmol/L MAGNESIUM Result Value Ref Range Magnesium 1.6 1.5 - 2.6 mg/dL PROCALCITONIN Result Value Ref Range Procalcitonin >100.00 (H) <0.10 ng/mL TROPONIN T, HIGH SENSITIVITY Result Value Ref Range Troponin T, High Sensitivity 30 (H) <=22 ng/L URINALYSIS, REFLEX TO MICROSCOPIC Result Value Ref Range Color, Urine Yellow Light Yellow, Yellow, Dark Yellow Clarity, Urine Clear Clear Glucose, Urine Negative Negative mg/dL Bilirubin, Urine Negative Negative Ketone, Urine >=80 (A) Negative mg/dL Specific [place], Urine 1.011 1.003 - 1.030 Blood, Urine Trace (A) Negative pH, Urine 7.0 5.0 - 7.5 Units Protein, Urine 30 (A) Negative mg/dL Urobilinogen, Urine 1.0 0.2, 1.0 mg/dL Nitrite, Urine Negative Negative Esterase, Urine Negative Negative CBC Result Value Ref Range WBC 7.82 4.00 - 10.80 K/uL RBC 4.96 4.50 - 5.25 M/uL HGB 15.1 14.0 - 16.8 g/dL HCT 43.6 40.0 - 48.4 % MCV 87.9 82.0 - 99.5 fL MCH 30.4 27.0 - 34.0 pg MCHC 34.6 32.0 - 36.0 g/dL RDW 13.5 11.5 - 15.5 % PLT 165 140 - 400 K/uL MPV 10.3 6.6 - 11.1 fL nRBCs 0 <=0 /100 WBCs DIFFERENTIAL, AUTOMATED Result Value Ref Range WBC 7.82 4.00 - 10.80 K/uL Neutrophils % 83.1 (H) 40.0 - 75.0 % Lymphocytes % 7.0 (L) 18.0 - 42.0 % Monocytes % 9.0 1.0 - 11.0 % Eosinophils % 0.1 0.0 - 6.0 % Basophils % 0.3 0.0 - 2.0 % Immature Granulocytes % 0.5 0.0 - 2.0 % Absolute Neutrophils 6.50 1.80 - 7.70 K/uL Absolute Lymphocytes 0.55 (L) 1.00 - 4.80 K/ul Absolute Monocytes 0.70 0.00 - 1.10 K/uL Absolute Eosinophils 0.01 0.00 - 0.70 K/uL Absolute Basophils 0.02 0.00 - 0.20 K/uL Absolute Immature Granulocytes 0.04 0.00 - 0.20 K/uL RESPIRATORY PATHOGEN PANEL, PCR Result Value Ref Range Adenovirus by PCR Negative Negative Coronavirus 229E by PCR Negative Negative Coronavirus HKU1 by PCR Negative Negative Coronavirus NL63 by PCR Negative Negative Coronavirus OC43 by PCR Negative Negative Coronavirus SARS-CoV-2 by PCR Negative Negative Human Metapneumovirus by PCR Negative Negative Rhinovirus/Enterovirus by PCR Negative Negative Influenza A Virus by PCR Negative Negative Influenza B Virus by PCR Negative Negative Parainfluenza Virus 1 by PCR Negative Negative Parainfluenza Virus 2 by PCR Negative Negative Parainfluenza Virus 3 by PCR Negative Negative Parainfluenza Virus 4 by PCR Negative Negative Respiratory Syncytial Virus by PCR Negative Negative Bordetella pertussis by PCR Negative Negative Chlamydia pneumoniae by PCR Negative Negative Mycoplasma pneumoniae by PCR Negative Negative Bordetella parapertussis by PCR Negative Negative MICROSCOPIC EXAM, URINE Result Value Ref Range RBC, Urine 0-2 0 - 2 /HPF WBC, Urine 0-2 0 - 2 /HPF Bacteria, Urine 0-25 0 - 25 /HPF PHOSPHORUS Result Value Ref Range Phosphorus 2.1 (L) 2.5 - 4.8 mg/dL *Note: Due to a large number of results and/or encounters for the requested time period, some results have not been displayed. A complete set of results can be found in Results Review. EKG- NSR, ventricular rate 76 bpm. QTc 481 Assessment and Plan IMPRESSION/PLAN OF CARE: Principal Problem: Intractable nausea and vomiting Hypokalemia Metastasis to liver (HCC) Active Problems: Dyslipidemia, goal LDL below 70 Prostate cancer metastatic to bone (HCC) Type 2 diabetes mellitus with hemoglobin A1c goal of less than 8.0% (HCC) Chronic diastolic heart failure (HCC) COPD, group C, by GOLD 2017 classification (HCC) DNR (do not resuscitate) Resolved Problems: * No resolved hospital problems. * Patient with PMHX: NHL in 2011, TRUS with carcinoma of the prostate (2015) dx with bone metastases in 2020 tx with Depo-Lupron, now with liver mets suggestive of neuroendocrine differentiation of previous adenocarcinoma of prostate, chronic diastolic HF, HLD, PMR on prednisone p/w intractable N/V, abdominal pain, right flank pain with hypoK. Admit to tele Check phosphate level Replace electrolytes as warranted Gentle IV hydration. Closely monitor volume status. He does have some LE edema. PRN antiemetics- zofran IV if ineffective may try compazine IV or Phenergan supp Pain control- APAP IV mild pain, Toradol IV for moderate pain and Morphine IV for severe pain IV PPI Trial PO fluids and advance diet as tolerated Bowel regimen Palliative care consult for symptom control Dr. Biggs going to reach out to Dr Levi (director of pulmonary unit for Hem/Onc as Dr. Sandoval is currently out of office) she her note regarding conversation. Pt need f/u Hem/Onc OP appointment when d/c CM consult Continue Cefepime for now d/t procal > 100- no clear infectious source identified at this time. He did have a recent + urine cx and completed course of abx. 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 Patient seen and examined along with my attending, Dr. Biggs Associated attestation - Margarito Biggs MD - 06/23/2023 2:25 PM EST I have reviewed the advanced practitioner documentation and agree. 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 Patient did not meet up with Oncologist to discuss this result yet but are aware of it. Impression Intractable nausea vomiting Plan: - IV zofran,compazine PRN ,iv fluids - Clear liquid diet - Case was discussed with director of pulmonary unit oncologist, Dr Levi - recommended MRI brain to rule out any brain mets ; trial of decadron 4mg BID to help with nausea. If MRI is negative and steroids don't help, patient will need GI eval to see if he needs any endoscopic management - Palliative consult for symptom management - Analgesia PRN documented in this encounter Procedure Notes * Rupal Horne, - 06/23/2023 10:26 AM ESTAssociated Order(s): EKG REASON FOR STUDY: CHEST PAIN CONCLUSIONS: Normal sinus rhythm Left anterior fascicular block Left ventricular hypertrophy with secondary QRS widening Prolonged QT interval or tu fusion, consider myocardial disease, electrolyte imbalance, or drug effects Abnormal ECG When compared with ECG of 10-JUN-2023 11:29, No significant change was found Ventricular Rate: 76 Atrial Rate: 76 FL Interval: 194 QRS Duration: 118 QT/QTc: 428/481 ms P-R-T [place]: 55 : -55 : 6 degrees documented in this encounter Consult Notes * Jayleen Soto RDN - 06/25/2023 11:29 AM EST CLINICAL NUTRITION CONSULT/PROGRESS NOTE [address] [id number] Name: Dedrick Peters Location: [facility] [id number] Date: 06/25/2023 Time: 11:29 AM How patient was identified (select 2): Medical record number and Name Discussed in interdisciplinary rounds: No Dedrick Peters is a 88 year old male being seen for reduced dietary intake and significant unintentional weight loss Primary Diagnosis: "88 y/o M patient with Hodgkin's disease (Jun 2011), Prostate cancer Stage 4 (Jun 2020 treated with depo-luporn) , GERD, Schtzki ring , Osteoporosis, PMR presented to the ER with intractable nausea, vomiting ; inability to tolerate anything PO " Other pertinent information: Attempted to reach patient by phone this date, unable to connect, therefore chart review completed. Seen by inpatient registered dietitian during recent admission with moderate malnutrition noted at that time. Per H&P, N/V & abdominal pain noted for 24-48 hours prior to admission. NUTRITION ASSESSMENT: Past medical/surgical history and medications reviewed. Food/Nutrition-Related History Nutrition Support: Diet: Full Liquid Previously followed diet: unknown Food Allergies/Intolerances: none reported Adult Energy Intake: Less than 75% of estimated energy requirement for greater than 1 month (moderate/severe, chronic illness). Percentage of meal intake: 75% breakfast today per nursing documentation Oral Nutrition Supplement (ONS): None Pertinent medications/vitamins/minerals/supplements: decadron, lasix, novolog, protonix, KCl, spironolactone Pertinent Biochemical Data: Labs reviewed. There are no biochemical abnormalities requiring a change in the nutrition plan of care. Nutrition-Focused Physical Findings: Appearance: did not visualize patient Respiratory support: Supplemental O2 Delivery: Room Air, None Nasal/Oral: No issues identified Digestive: No issues identified Last Bowel Movement: 06/25/23 (06/25/23 4717) Cognition: Unable to assess Skin: Intact Enteral access: none Nutrition Focused Physical Exam: Nutrition Focused Physical Exam deferred at this time due to inability to visualize the patient. Will attempt to complete exam upon follow-up. Edema Location: Lower extremities;Both (06/25/23724) Edema Assessment: +1 - Description (06/25/23724) Anthropometrics Measurements Height: 172.7 cm (5' 8") (06/23/23 1429) Admission weight: 94.62kg Weight: 94.6 kg (208 lb 9.6 oz) (06/25/23 0600) BMI: 31.94 (06/23/23 1012) Usual Body Weight: 110.3kg [place] weight: 74.3kg [place] Weight Based on BMI: 24.9 Adjusted ideal weight: 79.35kg Interpretation of Weight Change Prior to Admission: Greater than 10% weight loss in 6 months (Severe) EHR showing 13.1% loss since 11/29/22 Nutrition Prescription: Energy needs: 25-30 Kcal/kg Kcal/day: 0590-0907 Based on adjusted ideal weight Protein needs: 1.2-1.3 gm/kg Protein: 95-103 Based on adjusted ideal weight Fluid needs: 25 ml/kg Fluid: 1984 ml/day Based on adjusted ideal weight Malnutrition: Malnutrition Present: Yes (06/25/231225) Adult Malnutrition Classification: Unable to determine (06/25/231225) due to unable to perform NFPE at this time NUTRITION DIAGNOSIS: Suboptimal oral intake related to decreased PO tolerance as evidenced by reported decreased intake prior to admission Increased nutrient needs energy/protein related to cancer Dx as evidenced by catabolic nature of disease. Goals: Patient to consume greater than 75 % of daily meals and 75% of daily supplements within 7 days. NUTRITION INTERVENTION/PLAN: Orders: Oral nutrition supplement added Supplement Shake (1/2 cup provides 200 calories, 6 grams protein, 34 grams carbohydrate) TID Clinical Nutrition Recommendations: Diet: Advance diet when clinically feasible NUTRITION MONITORING AND EVALUATION: Nursing documentation flowsheets for percent meal intake Tolerance of supplement per patient/nursing report Lab values warranting change with MNT Weight for trends Plan follow-up: Will follow and adjust nutrition plan of care as medical condition requires. Please contact for change(s) in patient condition requiring earlier intervention. Janneth Soto RD, LDN Clinical Dietitian II [facility] Available via [employer] * Luciana Edwards, Farm Adviser - 06/24/2023 5:25 PM ESTAssociated Order(s): CARE MANAGEMENT CONSULT IP See Ancillary Progress Note * Maddison Garcia CRNP - 06/23/2023 1:14 PM ESTAssociated Order(s): PALLIATIVE MEDICINE CONSULT IP Images from the original note were not included. Palliative Medicine Inpatient Consult Note [facility] [id number] Name: Dedrick Peters Location: Date: 06/23/2023 Time: 1:15 PM Requesting Service General Internal Medicine Reason for Consult: Goals of care HPI: Dedrick Peters is a 88 year old male who was admitted 06/23/2023 for intractable nausea/vomitingand R flank pain, with underlying diagnosis of newly diagnosed metastatic neuroendocrine tumor withliver, bone, and peritoneal lesions, hx NHL and prostate cancer, PMR on prednisone, and others. Patient was recently admitted to [facility] in which the metastatic cancer was discovered. At that time, he was having L lower back pain and N/V. He improved and was sent home on tylenol, buspar, gabapentin, and tramadol. He was doing okay until about 36 hours again when he started vomiting nonstop. He has not been able to hold anything down at all. Vomits food within 5 minutes, even sips of water, and is dry heaving as well. Was moving bowels okay at home. CT abd shows no bowel obstruction, does show theknown metastatic disease. Saw patient in the ED along with his Soledad and two other family members. Patient is awake and alert, oriented but defers to for giving all history. Patient was not in distress while I was inthe room, but he had just vomited again not long ago. At home, they were giving him Zofran as needed, but he hasn't been able to hold anything down for quite some time. thinks there could be an anxiety/psychological component to this as well. Patient c/o R lower back/flank pain as well. L lower back pain - which was determined to be muscle spasm, has improved and nearly gone away. ROS: See HPI. - Palliative Performance Scale: 60% Past Medical History: Diagnosis Date ADVANCE DIRECTIVE INFORMATION 05/10/2005 Anemia 05/13/2008 Backache 11/28/2007 Benign neoplasm of colon 04/05/07 hyperplastic polyps--repeat 5 years Bilateral hip JOINT PAIN-PELVIS L>R 11/28/2007 CARPAL TUNNEL SYNDROME, R 05/10/2005 Chronic diastolic heart failure (HCC) 03/07/2018 Disorder of intervertebral disc 12/28/2006 Dyslipidemia, goal LDL below 130 07/15/2002 Dyslipidemia, goal to be determined Elevated prostate specific antigen (PSA) 08/11/2018 Endophthalmitis, left 09/20/2012 OS sterile endophthalmitis after Eylea injection OS on 09/20/12 Exudative macular degeneration (HCC) OS 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 Hodgkin lymphoma (HCC) Jun 2011 Hodgkin lymphoma, unspecified, unspecified site (HCC) 03/21/2017 HTN, goal below 140/90 HYPERTROP PROSTATE W/O URIN OB 12/22/2003 Irritable bowel syndrome KNEE JOINT REPLACEMENT STATUS, R and L 11/28/2008 Lens replaced by other means OU residential current use of systemic steroids 10/18/2012 Mediastinal mass 06/16/2011 Nodular prostate without urinary obstruction 10/04/2001 Noise-induced hearing loss Osteoarthrosis Osteoarthrosis, unspecified whether generalized or localized, other specified sites Other visual distortions and entoptic phenomena 03/07/02 os Phlebitis and thrombophlebitis of other deep vessels of lower extremities 11/24/08 [facility]. LLE s/p TKA:3-6M coumadin Pneumonia Prostate cancer (HCC) 01/11/2016 Pulmonary arterial hypertension (HCC) Retinal edema 04/01/2010 Sleep apnea, obstructive SPINAL STENOSIS Mild L4-5 11/28/2007 Vitreous degeneration 03/07/02 os Past Surgical History: Procedure Laterality Date ARTHROPLASTY KNEE TOTAL 05/12/2008 ARTHROPLASTY KNEE TOTAL performed by KOSTAS YEBOAH at OR [facility] ARTHROPLASTY KNEE TOTAL 11/19/2008 ARTHROPLASTY KNEE TOTAL performed by KOSTAS YEBOAH at OR [facility] ARTHROPLASTY KNEE TOTAL bilateral BRONCHOSCOPY, DIAGNOSTIC 06/22/2011 BRONCHOSCOPY DIAGNOSTIC WITH OR WITHOUT WASHING performed by PAM PRATT at ENDOSCOPY [facility] COLONOSCOPY W/ BIOPSY (RECTUM) 04/05/2007 hyperplastic polyps--repeat 5 years COLONOSCOPY W/ LESION REMOVAL, SNARE 04/05/2007 path pending COLONOSCOPY W/ SUBMUCOUS INJ 04/05/2007 COLONOSCOPY, DIAGNOSTIC (RECTUM) 12/20/2013 COLONOSCOPY FLEXIBLE PROXIMAL DIAGNOSTIC performed by Arnoldo Oseguera MD at ENDOSCOPY [facility] EGD, FLEXIBLE, DIAGNOSTIC N/A 04/25/2018 hiatal hernia/moderate Schatzki ring, dilated/biopsies show Reveles's esophagitis/recall 1 year/ESOPHAGOGASTRODUODENOSCOPY (EGD), FLEXIBLE, TRANSORAL, DIAGNOSTIC performed by Ulices Chaney MD at OR [facility] EGD, FLEXIBLE, DIAGNOSTIC N/A 05/21/2019 mild schatzki ring, dilated/small hiatal hernia/multiple gastric polyps/biopsies from esophagus andstomach show inflammatory changes/ESOPHAGOGASTRODUODENOSCOPY (EGD), FLEXIBLE, TRANSORAL, DIAGNOSTICperformed by Trina Plaza DO at OR [facility] FLUORO UPPER GI W AIR WO KUB 01/2010 small-mod HH w some reflux INJECT DX/THER SUBSTANCE INTERLAMINAR LUMBAR/SACRAL W IMAGE GUIDE 01/30/2017 INJECTION SPINE LUMBAR OR SACRAL performed by John Ware DO at OR [facility] INJECT DX/THER SUBSTANCE INTERLAMINAR LUMBAR/SACRAL W IMAGE GUIDE 02/16/2017 INJECTION SPINE LUMBAR OR SACRAL performed by John Ware DO at OR [facility] INJECTION OF EYE DRUG 04/01/2010 #1 Avastin OS; Dr. Shafer INJECTION OF EYE DRUG 04/30/2010 #2 Avastin OS; Dr. Shafer INJECTION OF EYE DRUG 06/01/2010 #3 Avastin OS; Dr. Shafer INJECTION OF EYE DRUG 06/29/2010 #4 Avastin OS; Dr. Shafer INJECTION OF EYE DRUG 08/10/2010 #5 Avastin OS; Dr. Shafer INJECTION OF EYE DRUG 11/02/2010 #6 Avastin OS, Dr. Shafer INJECTION OF EYE DRUG 11/26/2010 #7 Avastin OS, Dr. Shafer INJECTION OF EYE DRUG 01/10/2011 #8 Avastin OS, Dr. Shafer INJECTION OF EYE DRUG 03/08/2011 #9 Avastin OS, Dr. Shafer INJECTION OF EYE DRUG 04/06/2011 #10 Avastin OS, Dr. Shafer INJECTION OF EYE DRUG 05/24/2011 #11 Avastin OS, Dr. Shafer INJECTION OF EYE DRUG 08/02/2011 #12 Avastin OS, Dr. Shafer INJECTION OF EYE DRUG 11/14/2011 #1 Eylea OS; Dr. Shafer INJECTION OF EYE DRUG 01/12/2012 #2 Eylea OS, Dr. Shafer INJECTION OF EYE DRUG 03/12/2012 #3 Eylea OS, Dr. Shafer INJECTION OF EYE DRUG 04/23/2012 #4 Eylea OS, Dr. Shafer INJECTION OF EYE DRUG 06/05/2012 #5 Eylea OS, INJECTION OF EYE DRUG 07/19/2012 #6 Eylea OS, INJECTION OF EYE DRUG 08/23/2012 #7 Eylea OS, Dr. Shafer INJECTION OF EYE DRUG 09/20/2012 #8 Eylea OS, INJECTION OF EYE DRUG 11/23/2012 #1 Lucentis 0.5mg OS, INJECTION OF EYE DRUG 01/23/2013 #2 Lucentis 0.5mg OS, Dr. Shafer ([facility]# [id number]) INJECTION OF EYE DRUG 02/27/2013 #3 LUCENTIS 0.5mg OS, Dr. Shafer ([facility]:[id number]) INJECTION OF EYE DRUG 04/10/2013 #4 Lucentis 0.5mg OS, Dr. Shafer INJECTION OF EYE DRUG 05/08/2013 #5 Lucentis 0.5mg OS, [facility]#[id number] INJECTION OF EYE DRUG 06/12/2013 #6 Lucentis 0.5mg OS, Dr. Shafer INJECTION OF EYE DRUG 08/02/2013 #7 Lucentis 0.5mg OS, Dr. Shafer INJECTION OF EYE DRUG 09/17/2013 #8 Lucentis 0.5mg OS, Dr. Shafer INJECTION OF EYE DRUG 11/11/2013 #9 Lucentis 0.5mg OS, Dr. Shafer ([facility]: [id number]) INJECTION OF EYE DRUG 02/07/2014 #10 Lucentis 0.5mg OS, Dr. Shafer ([facility]: [id number]) INJECTION OF EYE DRUG 03/28/2014 #11 Lucentis 0.5mg OS, Dr. Shafer INJECTION OF EYE DRUG Left 06/13/2014 # 12 Lucentis 0.5mg OS, Dr. Shafer INJECTION OF EYE DRUG Left 07/28/2014 # 13 Lucentis 0.5mg OS, INJECTION OF EYE DRUG Left 09/09/2014 # 14 Lucentis 0.5mg OS, INJECTION OF EYE DRUG Left 11/06/2014 # 15 Lucentis 0.5mg OS, Dr. Shafer INJECTION OF EYE DRUG Right 06/27/2018 # 1 Lucentis 0.5mg OD, Dr. Shafer INJECTION OF EYE DRUG Right 07/31/2018 #2 Lucentis 0.5mg OD, Dr. Shafer INJECTION OF EYE DRUG Right 09/11/2018 # 3 Lucentis 0.5 mg OD, INJECTION OF EYE DRUG Right 10/23/2018 # 4 Lucentis OD, Dr. Shafer INJECTION OF EYE DRUG Right 11/29/2018 # 5 Lucentis 0.5mg OD, INJECTION OF EYE DRUG Right 01/24/2019 # 6 Lucentis 0.5 mg. OD INJECTION OF EYE DRUG Right 03/21/2019 # 7 Lucentis 0.5mg OD, INJECTION OF EYE DRUG Right 05/09/2019 # 8 Lucentis 0.5mg OD, INJECTION OF EYE DRUG Right 07/04/2019 # 9 Lucentis 0.5 mg OD, Dr. Shafer INJECTION OF EYE DRUG Right 08/22/2019 # 10 Lucentis 0.5mg OD, Dr. Shafer INJECTION OF EYE DRUG Right 10/10/2019 # 11 Lucentis 0.5mg OD, Dr. Shafer INJECTION OF EYE DRUG Right 11/28/2019 # 12 Lucentis 0.5mg OD, Dr. Shafer INJECTION OF EYE DRUG Right 01/09/2020 # 13 Lucentis 0.5mg OD, INJECTION OF EYE DRUG Right 2020 # 14 Lucentis 0.5mg OD, Dr. Shafer INJECTION OF EYE DRUG Right 05/07/2020 # 15 Lucentis OD, INJECTION OF EYE DRUG Right 07/16/2020 # 16 Lucentis 0.5mg OD, Dr. Shafer INJECTION OF EYE DRUG Right 08/28/2020 # 17 Lucentis OD, INJECTION OF EYE DRUG Right 09/29/2020 # 18 Lucentis 0.5mg OD, Dr. Shafer INJECTION OF EYE DRUG Right 10/28/2020 #[address] Shafer INJECTION OF EYE DRUG Right 12/29/2020 # 20 Lucentis 0.5mg, INJECTION OF EYE DRUG Right 02/24/2021 # 21 Lucentis 0.5mg OD, INJECTION OF EYE DRUG Right 04/13/2021 # 22 Lucentis 0.5mg OD, INJECTION OF EYE DRUG Right 05/27/2021 # 23 Lucentis 0.5mg OD, Dr. Shafer INJECTION OF EYE DRUG Right 07/14/2021 # 24 Lucentis 0.5mg OD, Dr. Shafer INJECTION OF EYE DRUG Right 08/27/2021 # 25 Lucentis 0.5mg OD, Dr. Shafer INJECTION OF EYE DRUG Right 10/11/2021 # 26 Lucentis 0.5mg OD, Dr. Shafer INJECTION OF EYE DRUG Right 11/29/2021 #27 Lucentis OD, Dr Shafer INJECTION OF EYE DRUG Right 01/17/2022 # 28 Lucentis 0.5mg OD, Dr. Shafer INJECTION OF EYE DRUG Right 03/07/2022 # 29 Lucentis 0.5mg OD, Dr. Shafer INJECTION OF EYE DRUG Right 04/25/2022 # 30 Lucentis 0.5mg OD, Dr. Shafer INJECTION OF EYE DRUG Right 06/13/2022 #31 Lucentis 0.5 OD RAJEEVNA INJECTION OF EYE DRUG Right 07/28/2022 # 32 Lucentis ).5mg OD, Dr. Shafer INJECTION OF EYE DRUG Right 09/15/2022 # 32 Lucentis 0.5mg OD, Dr. Shafer INJECTION OF EYE DRUG Right 11/08/2022 # 33 Lucentis 0.5mg OD, Dr. Shafer INJECTION OF EYE DRUG Right 12/20/2022 # 34 Lucentis 0.5mg OD, Dr. Shafer INJECTION OF EYE DRUG Right 02/08/2023 # [address]is [address] Shafer INJECTION OF EYE DRUG Right 03/27/2023 #36 Lucentis 0.5mg OD; Dr Shafer INTERSTITIAL RADIATION APPLICATION, COMPLEX IR BIOPSY 06/15/2023 MISCELLANEOUS ORDER ([facility] ONLY) 09/07/2010 Consent signed-Avastin OS, Dr. Hollis FONTANEZANEOUS ORDER ([facility] ONLY) 09/13/2011-09/12/2012 Avastin consent signed OS;Dr.Cessna URRUTIACELLANEOUS ORDER ([facility] ONLY) 11/14/2011-11/13/2012 EYLEA CONSENT SIGNED OS; DR HOLLIS FONTANEZANEOUS ORDER ([facility] ONLY) 11/23/2012-11/23/2013 Eylea OS Consent signed, Dr.Cessna URRUTIACELLANEOUS ORDER ([facility] ONLY) 11/23/2012-11/23/2013 Lucentis 0.5mg OS, consent signed, MISCELLANEOUS ORDER ([facility] ONLY) 06/2011 Port placement MISCELLANEOUS ORDER ([facility] ONLY) 11/11/2013-11/11/2014 LUCENTIS 0.5MG CONSENT OS SIGNED;DR HOLLIS URRUTIACELLANEOUS ORDER ([facility] ONLY) Left 12/23/2014-12/24/2015 LUCENTIS 0.5MG CONSENT SIGNED OS; DR HOLLIS ZULUAGA ORDER ([facility] ONLY) Bilateral 06/27/2018-06/27/2019 LUCENTIS CONSENT OU SIGNED, Dr. Hollis URRUTIACELLANEOUS ORDER ([facility] ONLY) ACT 112 signed, 09/11/2018 MISCELLANEOUS ORDER ([facility] ONLY) Right 08/22/2019-08/22/2020 LUCENTIS 0.5MG CONSENT OU SIGNED, Dr. Shafer MRI L SPINE W WO CONTRAST 06/2004 djd, no stenosis. see result NEEDLE/PUNCH BIOPSY OF PROSTATE 01/04/2016 Prostate,Needle/Punch Biopsy OTHER ACT 112 signed 08/28/2020 OTHER Right Lucentis Consent signed OD, and 08/28/2020-08/28/2021 OTHER (INFORMATION) Right LUCENTIS 0.5MG OD CONSENT DR. SHAFER/ELLEN EXP. 08/27/22 OTHER (INFORMATION) LUCENTIS OU CONSENT SIGNED Dr. Shafer/Ellen (exp 09-16-23) RADIATION THERAPY MANAGEMENT 12/21/2011 radiation treatments x 17 (chest) Oncologist Dr. Izquierdo REMOVE CATARACT, INSERT LENS PROSTH 01/02/2013 OS-Dr. Velazquez REMOVE CATARACT, INSERT LENS PROSTH 11/07/2013 EXTRACAPSULAR CATARACT REMOVAL WITH INTRAOCULAR LENS performed by Jaya Velazquez MD at OR [facility] RESECTION OF CHEST TUMOR 07/11/2011 EXCISION OF MEDIASTINAL TUMOR performed by PAM KRISHNAMURTHY at OR [facility] STRESS NUCLEAR (PHARM) 03/2008 normal, EF 71% Family History Problem Relation Age of Onset Stroke Mother age 77 Hypertension Mother Alzheimer's disease Mother Diabetes Mother Arthritis Mother Cancer Mother Bladder Stroke Brother Hypertension Brother Heart disease Brother h/o CABG Cancer Brother Bladder, age 89 Hypertension Father Stroke Father age 71 COPD Father Emphysema Father Lung Disorder Father 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 Other (Other) Other no known family hx of skin disorders or skin ca Family Status Relation Status Mo at age 77 stroke, multiple TIAs, NIDDM, HTN, bladder cancer, arthritis Bro stroke, HTN Kim Alive Son Alive Factor V Son Alive Factor V Other Alive Factor V Other Alive Factor V Fa Other (Not Specified) Social History Socioeconomic History Marital status: Spouse name: Soledad Number of children: 3 Years of education: 12 Occupational History 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 Allergies: Amoxicillin, Oxycodone, and Percocet [oxycodone-acetaminophen] PHYSICAL EXAMINATION: Constitutional: BP 136/61 | Pulse 88 | Temp 36.7 C (98.1 F) (Oral) | Resp 20 | Ht 1.727 m (5' 8") | Wt 95.3 kg (210 lb) | SpO2 98% | BMI 31.93 kg/m | BSA 2.14 m , no acute distress HENT: normocephalic, atraumatic Eyes: anicteric, sclera and conjunctiva normal Neck: supple, no stridor Chest: normal respiratory effort Abdominal: soft, mildly tender MSK: no deformities, moves all extremities. Palpated both flanks - nontender, no obvious masses Skin: warm, dry Neuro: alert, oriented to person, place, and time Psych: normal mood and affect Labs: Reviewed in EMR, pertinent findings: Latest Reference Range & Units 06/23/23 10:42 Potassium 3.5 - 5.1 mmol/L 2.9 (L) (L): Data is abnormally low Latest Reference Range & Units 06/23/23 10:42 BUN 6 - 20 mg/dL 10 Creatinine 0.6 - 1.2 mg/dL 0.7 Latest Reference Range & Units 06/23/23 10:42 Procalcitonin <0.10 ng/mL >100.00 (H) Albumin 3.8 - 5.0 g/dL 3.8 AST 10 - 50 U/L 62 (H) ALT 10 - 50 U/L 35 Alkaline Phosphatase 35 - 130 U/L 192 (H) Bilirubin, Total <=1.2 mg/dL 1.0 (H): Data is abnormally high Imaging: Reviewed in EMR, pertinent findings: CT abd/pelvis 06/23/23 report: "FINDINGS: Lungs: Chronic bronchiectasis posteriorly right lung base and mild bibasilar distal lung changes, stable. Heart: Heart is enlarged. Diaphragm: Small hiatal hernia. Liver: Multiple hypodense liver lesions better demonstrated on this contrast enhanced study measuring up to 2 cm highly suspicious for liver metastasis. Gallbladder and bile ducts: Normal. No calcified stones. No ductal dilation. Pancreas: Unremarkable. Main pancreatic duct is not significantly dilated. Spleen: Normal. No splenomegaly. Adrenal glands: Normal. No mass. Kidneys and ureters: Normal. No hydronephrosis. Stomach and bowel: Unremarkable. No obstruction. No mucosal thickening. Appendix: No evidence of appendicitis. Intraperitoneal space: 3.5 cm cystic lesion anterior to the left lobe of the liver within the peritoneal cavity as well as 2 small partially calcified solid nodules within the peritoneal cavity, possibly metastatic in nature. Vasculature: Scattered atherosclerotic changes of the abdominal aorta and iliac vessels. No aortic aneurysm. Lymph nodes: Enlarged necrotic lymph nodes within the upper abdomen measuring up to 3 cm likely metastatic in nature. Mild right periaortic lymphadenopathy more nonspecific, stable. Urinary bladder: Unremarkable as visualized. Reproductive: Prostate gland is mildly enlarged. Bones/joints: Diffuse mixed osteolytic/sclerotic bone changes T11 vertebral body with mild compression deformity unchanged likely metastatic in nature. Scattered small radiolucent bone lesions within the lower thoracic and lumbar spine suspicious for bone metastasis. Superimposed degenerative changes of the lumbar spine, stable. Soft tissues: Diastasis of the lower abdominal wall with small umbilical hernia unchanged. IMPRESSION IMPRESSION: 1. No acute findings within the abdomen or pelvis. 2. 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 3. Necrotic abdominal lymphadenopathy and mild retroperitoneal lymphadenopathy likely metastatic in nature. Questionable peritoneal metastasis unchanged. 4. Additional nonemergent findings as above. " Discussion with other physicians/team members: hospitalist and discussed with palliative physician Decision-making Capacity: Does Patient have Decisional Capacity? Did not fully assess Does Patient have a Healthcare Agent? Soledad is NOK Advanced Care Planning (ACP) Tab Review: Living Will in EMR: no Prior POLST in EMR: yes ASSESSMENT/RECOMMENDATIONS: Dedrick Peters is a 88 year old male who was admitted 06/23/2023 for intractable nausea/vomiting and R flank pain, with underlying diagnosis of newly diagnosed metastatic neuroendocrine tumor with liver, bone, and peritoneal lesions, hx NHL and prostate cancer, PMR on prednisone, and others. Palliative Impression: Intractable nausea/vomiting Neuroendocrine cancer - liver, bone and peritoneal mets R lower back/flank pain Hx NHL and prostate cancer Anxiety Goals of care/palliative care encounter Code status: DNR/DNI Recommendations: Etiology of N/V uncertain. No evidence of bowel or gastric outlet obstruction. There is also no organ failure. Could be from the neuroendocrine cancer itself, could be a psychological component as well. Octreotide 100mcg BID Zyprexa 5mg BID - can increase to 10mg if needed Lorazepam 1mg SL Q8h PRN anxiety or nausea Also has compazine and phenergan ordered PRN R lower back/flank pain - likely musculoskeletal related to body compensating for the T11 mets and/or radiated pain from the mets. Lidocaine patch to R lower back/flank Morphine IV PRN. Once tolerating PO, could switch to Percocet 10/325mg Q4h PRN Tylenol PRN okay. Was taking baclofen at home which helped, but L lower back muscle spasm is now resolved. Will hold off on ordering. Patient is DNR/DNI, but okay with limited treatment. POLST on file reflecting these wishes. I appreciate your consult and the opportunity to assist in the care of your patient. Please do not hesitate to call or [employer]Text with additional questions or concerns. I will continue to follow. I spent a total of 82 minutes coordinating, documenting, and providing care for this patient excluding time spent in the performance of separately billed services or time spent by another provider/QHP. AFTAB Juarez Palliative Medicine Nurse Practitioner [facility] 06/23/2023 Associated attestation - Valeria Nath MD - 06/23/2023 3:12 PM EST I have reviewed the advanced practitioner documentation and agree. I saw and evaluated the patient on date of service referenced in note and have performed the following medically appropriate historyand/or exam: Patient seen this afternoon, at bedside, he appears comfortable at this time, medications being hung. On exam, no acute distress, awake and alert, normal respiratory rate. We will continue to follow, if patient discharged over the weekend, we will plan to follow outpatient.. documented in this encounter Nursing Notes * Kate Lomax RN - 06/26/2023 1:01 PM EST Discharge instructions reviewed with pt and daughter. All questions answered at this time. Pt takenvia wheelchair to ER entrance by staff with family. * Maria T Ortega LPN - 06/26/2023 6:19 AM EST [facility] [address] End Shift Added Details Name: Dedrick Peters Date: 06/26/2023 Time: 6:20 AM Overall impression: Stable. New or worsening signs and/or symptoms this shift: None. Plan for next shift: Continue to provide fall precautions. * Alondra Sun RN - 06/23/2023 6:39 PM EST Late entry- patient was oriented to room layout, meal times, call palomo system, and visiting hours. Patient denied nausea upon arriving to the floor, but reported severe pain to his lower back area. PRN morphine given per MAR. Patient's spouse at the bedside, and was able to assist with admission que stions. * Alondra Sun RN - 06/23/2023 5:59 PM EST Dual Licensed Skin Assessment completed by Dania Garcia RN. and Katelynn Sun RN. The patient is/has a N/A Skin Breakdown (includes non blanchable erythema): No documented in this encounter ED Notes * Izabel Doherty MD - 06/23/2023 10:22 AM EST HISTORY OF PRESENT ILLNESS: Patient is a 88-year-old male presenting with abdominal pain and vomiting. provides history. Reports that starting yesterday the patient has not been able to tolerate oral intake. Reports he didnot eat or drink yesterday. He started having profuse vomiting and dry heaving yesterday that continued into today. He was seen by a physician's medical billing assistant with [facility] and was given a sublingual zofran for 9:00 a.m. today and referred to the emergency department. No reported fevers at home. Patient is having generalized abdominal pain. He has a history of non-Hodgkin's lymphoma and newly diagnosed prostate cancer. No reported dysuria or hematuria. Denies any abdominal surgical history. Denies any chest pain or shortness of breath. Denies any recent sick contact exposures. ROS: as above The patient's allergies, past history, and medications were reviewed. PHYSICAL EXAM: ED Vitals: 06/23/23 1012 06/23/23 1027 06/23/23 1100 06/23/23 1155 BP: 172/85 190/87 136/61 Pulse: 77 76 88 Resp: 24 22 20 Temp: 36.9 C (98.4 F) 36.7 C (98.1 F) TempSrc: Oral SpO2: 98% Weight: 95.3 kg (210 lb) Height: 1.727 m (5' 8") 06/23/23 1300 BP: 149/76 Pulse: 95 Resp: 20 Temp: TempSrc: SpO2: Weight: Height: Constitutional: Patient appears in no acute distress. HENT: Head: Normocephalic and atraumatic. Eyes: EOMI, PERRL Mouth/Throat: Mucous membranes dry. Neck: Trachea midline. Neck supple. Cardiovascular: RRR, No murmurs, rubs or gallops. Intact distal pulses. Pulmonary/Chest: No respiratory distress. Breath sounds clear and equal bilaterally. No wheezes or rales. Abdominal: Abdomen soft, no rebound or guarding. Generalized TTP Musculoskeletal: No edema, tenderness or deformity noted. Skin: Warm and dry. No rash, erythema, pallor or cyanosis Psychiatric: Appropriate mood and affect for situation. Neurological: Alert and keenly responsive. CN II-XII grossly intact, moving all extremities equallyand fully. PROCEDURES AND TREATMENTS ED Orders | ED Results MDM: ED Course as of 06/23/23 1408 MonJun 23, 2023 1104 Lactate: 1.7 [RP] 1109 Troponin T, High Sensitivity(!): 30 [RP] 1132 Procalcitonin(!): >100.00 [RP] 1143 Respiratory Pathogen Panel, PCR Negative [RP] ED Course User Index [RP] Izabel Doherty MD - Vitals signs stable. - History obtained via patient and patient's . Patient presents with vomiting and abdominal pain. Patient reports that he is any persistent vomiting since yesterday. He has been unable to tolerate oral intake. He did not eat or drink yesterday. He has had profuse vomiting and dry heaving. He has also had some generalized abdominal pain. No fevers. - Chronic conditions affecting care: non-Hodgkin's lymphoma; metastatic prostate cancer; CHF; HLD; HTN - Differential diagnoses include, but are not limited to: viral syndrome; cholecystitis; appendicitis; small bowel obstruction; dehydration; electrolyte abnormality; ACS - Order placed for continuous cardiac monitoring. At this time, monitor showed rate of 88 bpm with normal sinus rhythm, per my interpretation. - External medical records reviewed. Home visit progress note dated today showed that a PA visited the patient's house and had given him a dose of Zofran. - EKG reviewed by myself showed normal sinus rhythm. Rate 76 beats per minute. Prolonged QT at 4:28a.m.. No acute ischemic changes. - Laboratory workup interpreted by myself showed normal WBC; hypokalemia (K 2.9); normal lactate; elevated procalcitonin (>100); elevated troponin (30); - Respiratory viral panel negative. - UA negative for infection. - Blood cultures obtained. - Patient given 2g IV cefepime empirically. - Given 2L NS, 4 mg IV zofran initially for symptoms. On reassessment, he was vomiting again. He was given 5 mg IV Compazine and 25 mg of IV Benadryl. On reassessment, the patient is no longer vomiting and feels his nausea is slightly improved. - CXR negative for pneumonia, per my interpretation. - Hospitalist consulted for admission - Patient admitted to [facility] service for further evaluation and management. ASSESSMENT AND PLAN: Diagnosis: nausea and vomiting; abdominal pain; elevated procalcitonin; hypokalemia; generalized weakness Disposition: admit Izabel Doherty MD * Rachel Herring RN - 06/23/2023 10:17 AM EST Pt arrives to ED with complaints of N/V and inability to tolerate oral intake. No food intake yesterday. Reports generalized weakness and pain. Home nurse told to come to ED. Took zofran ODT at 0900. documented in this encounter Miscellaneous Notes * Ancillary Progress Note - Dinah Brown Farm Adviser - 06/26/2023 1:00 PM EST CARE MANAGEMENT - ADULT DISCHARGE NOTE [facility] [address] Name: Dedrick Peters Location: [facility] [id number] Date: 06/26/2023 Time: 1:50 PM The following coordination of care and discharge plan has been coordinated with the care team, patient, family and/or caregiver according to the patients needs and preferences. Discharge Discharge Second Notice Important Message from Medicare delivered: Yes (06/26/23 1300) Date Delivered: 06/25/23 (06/26/23 1300) Was Caregiver/Family/Facility contacted regarding discharge: Yes (06/26/23 1300) Discharge Transportation: Family/Friends drive (06/26/23 1300) Date of scheduled discharge transportation: 06/26/23 (06/26/23 1300) Patient declined post-hospital transition of care recommendation: N/A (06/26/23 1300) Final Discharge Plan (Complete only at time of Discharge): Home - Self Care (06/26/23 1300) Narrative: Pt discharging to home with family providing transportation. Pt is to continue with current oxygen order. * Communication - Lilia Lyles RN - 06/26/2023 12:15 PM EST Please keep your scheduled doctors appointment with your primary care physician. 06/29/2023 at 1:00 PM Angel Snyder DO [address] [phone] * Pt Handout (on AVS) - Lilia Lyles RN - 06/26/2023 11:58 AM EST Images from the original note were not included. [id number] Olanzapine Disintegrating Oral Tablet Brands: Zyprexa Uses This medicine is used for the following purposes: bipolar disorder depression nausea and vomiting schizophrenia Instructions Let the medicine dissolve in the mouth and then swallow. This medicine may be taken with or without food. This medicine will work best if you take it at about the same time every day. Keep the medicine at room temperature. Avoid heat and direct light. Drink plenty of water while on this medicine. It is important that you keep taking each dose of this medicine on time even if you are feeling well. If you forget to take a dose on time, take it as soon as you remember. If it is almost time for thenext dose, do not take the missed dose. Return to your normal schedule. Do not take 2 doses at one time. Drug interactions can change how medicines work or increase risk for side effects. Tell your healthcare providers about all medicines taken. Include prescription and qdza-dux-zdtorpl medicines, vitamins, and herbal medicines. Speak with your doctor or pharmacist before starting or stopping any medicine. This medicine may cause higher blood sugar levels or diabetes. Please follow your doctor's instructions and check your blood sugar level regularly while on this medicine. Keep all appointments for medical exams and tests while on this medicine. Cautions Tell your doctor and pharmacist if you ever had an allergic reaction to a medicine. Do not use the medication any more than instructed. This medicine may cause dizziness or fainting, especially after exercising or in hot weather. Be very careful when standing or sitting up quickly. If possible, avoid using with alcohol, marijuana, or other medicines that can cause dizziness or drowsiness. These include allergy/cold products, muscle relaxers, sleep aids, and pain relievers. Your ability to stay alert or to react quickly may be impaired by this medicine. Do not drive or operate machinery until you know how this medicine will affect you. Avoid becoming overheated during exercise or other activities. Try to stay cool in hot weather. This medicine passes into breast milk. Ask your doctor before . During , this medicine should be used only when clearly needed. Talk to your doctor about the risks and benefits. Do not share this medicine with anyone who has not been prescribed this medicine. Some patients have serious side effects from this medicine. Ask your pharmacist to show you the information from the Food and Drug Administration (FDA) and discuss it with you. Side Effects The following is a list of some common side effects from this medicine. Please speak with your doctor about what you should do if you experience these or other side effects. increased appetite constipation dizziness or drowsiness dry mouth high blood sugar low blood pressure lightheadedness stomach upset or abdominal pain weight gain Call your doctor or get medical help right away if you notice any of these more serious side effects: agitated feeling or trouble sleeping decreased awareness or responsiveness loss of balance breast pain or swelling breathing interruption during sleep confusion fainting lack of energy and tiredness high fever swelling in the neck or throat fast, irregular, or slow heartbeat irritability menstruation changes (missed or fewer periods) uncontrollable movement of face, tongue, arms or legs muscle pain tight or rigid muscles muscle trembling or weakness seizures symptoms of stroke (such as one-sided weakness, slurred speech, confusion) suicidal thoughts sweating dark urine A few people may have an allergic reaction to this medicine. Symptoms can include difficulty breathing, skin rash, itching, swelling, or severe dizziness. If you notice any of these symptoms, seek medical help quickly. Extra Please speak with your doctor, nurse, or pharmacist if you have any questions about this medicine. [email or web address] IMPORTANT NOTE: This document tells you briefly how to take your medicine, but it does not tell youall there is to know about it. Your doctor or pharmacist may give you other documents about your medicine. Please talk to them if you have any questions. Always follow their advice. There is a more complete description of this medicine available in [place]. Scan this code on your smartphone or tablet or use the web address below. You can also ask your pharmacist for a printout. If you have any questions, please ask your pharmacist. The display and use of this drug information is subject to Terms of Use. Copyright(c) 2022 [employer]. 2063-3820 [employer]. All rights reserved. This information is not intended as a substitute for professional medical care. Always follow your healthcare professional's instructions. * Pt Handout (on AVS) - Lilia Lyles RN - 06/26/2023 11:58 AM EST Images from the original note were not included. [id number] Lidocaine Medicated Patch Brands: Absorbine Lidocaine, Lidoderm, ZTlido Uses This medicine is used for the following purposes: itching pain skin irritation skin wound Instructions DO NOT take this medicine by mouth. Apply the patch to the most painful area. The patch should be removed after 8 or 12 hours depending on the brand of your product. Read the package instructions or ask your pharmacist how long the patch can be applied to the skin. Keep the medicine at room temperature. Avoid heat and direct light. You may cut the patch with scissors if needed. Be sure to cut the patch before peeling away the liner protecting the adhesive. Wash your hands before and after handling this medicine. Do not use if the pouch containing the medicine is torn or damaged. Remove the plastic liner that protects the sticky side of the patch before applying to the skin. Be sure the area of skin is clean and dry before putting on a new patch. Apply the patch only to normal looking skin. Avoid skin that is red, scraped, or damaged. Press the patch firmly for a few seconds to make sure it stays in place. If the patch does not stick, speak with your doctor or pharmacist. Do not cover the patch with bandage or tape unless instructed by your doctor or pharmacist. After removing the patch, fold it together and discard it out of reach of children and pets. Do not dispose of a used patch by flushing it into the toilet. Avoid getting the medicine in the eyes, nose, or mouth. Wash your hands after touching patch. If the patch causes a feeling of burning or pain at the location of the patch, remove the patch until the feeling goes away. If the patch falls off or you forgot to use the patch on time, apply a new patch immediately to a different location. Replace this new patch at your next usual dosing time. Do not apply heat on the area with the patch. Avoid heating blankets, suntan beds, or hot tubs. Ask the doctor or pharmacist if you can bathe, swim or shower while wearing the patch. Clothing may be worn over the patch. Avoid touching or scratching the area of the skin after the patch is removed. Drug interactions can change how medicines work or increase risk for side effects. Tell your healthcare providers about all medicines taken. Include prescription and tgad-ehn-xbqmssc medicines, vitamins, and herbal medicines. Speak with your doctor or pharmacist before starting or stopping any medicine. Tell your doctor if symptoms do not get better or if they get worse. Cautions Some patients taking this medicine have experienced serious side effects. Please speak with your doctor to understand the risks and benefits associated with this medicine. Tell your doctor and pharmacist if you ever had an allergic reaction to a medicine. Do not use the medication any more than instructed. Tell the doctor or pharmacist if you are , planning to be , or . Ask your doctor if patch should be removed before having an MRI scan to avoid serious leung. Do not share this medicine with anyone who has not been prescribed this medicine. Side Effects The following is a list of some common side effects from this medicine. Please speak with your doctor about what you should do if you experience these or other side effects. burning or stinging numbness where the medicine is applied skin irritation where medicine is applied Call your doctor or get medical help right away if you notice any of these more serious side effects: blurry vision shallow, irregular breathing dizziness or drowsiness lack of energy and tiredness fast, irregular, or slow heartbeat mood changes pale or blue skin, lips or fingernails ringing in the ears seizures shortness of breath A few people may have an allergic reaction to this medicine. Symptoms can include difficulty breathing, skin rash, itching, swelling, or severe dizziness. If you notice any of these symptoms, seek medical help quickly. Extra Please speak with your doctor, nurse, or pharmacist if you have any questions about this medicine. [email or web address] IMPORTANT NOTE: This document tells you briefly how to take your medicine, but it does not tell youall there is to know about it. Your doctor or pharmacist may give you other documents about your medicine. Please talk to them if you have any questions. Always follow their advice. There is a more complete description of this medicine available in [place]. Scan this code on your smartphone or tablet or use the web address below. You can also ask your pharmacist for a printout. If you have any questions, please ask your pharmacist. The display and use of this drug information is subject to Terms of Use. Copyright(c) 2022 [employer]. [employer]. All rights reserved. This information is not intended as a substitute for professional medical care. Always follow your healthcare professional's instructions. * Pt Handout (on AVS) - Lilia Lyles RN - 06/26/2023 11:47 AM EST Prepared for: Dedrick Peters [id number] Vomiting (Adult) Vomiting is a common symptom that may be due to different causes. These include gastroenteritis (stomach flu), food poisoning, and gastritis. Other more serious causes of vomiting may be hard to diagnose early in the illness. That's why it's important to watch for the warning signs listed below. The main danger from repeated vomiting is dehydration. This is because of the loss of water and minerals from the body. When this occurs, your body fluids must be replaced. Home care If symptoms are severe, rest at home for the next 24 hours. Because your symptoms may be from an infection, wash your hands often and well. Use soap and clean, running water or alcohol-based capital campaign fundraiser to keep from spreading the infection to others. Wash your hands for at least 20 seconds. Scrub all surfaces of your hands, including between your fingers and under your fingernails each time you wash. Humming the Happy Birthday song twice whileyou wash is an easy way to make sure you've washed for 20 seconds. Wash your hands after using the toilet, before and after preparing food, before eating food, after changing a diaper, cleaning a wound, caring for a sick person, and blowing your nose, coughing, or sneezing. You should also wash your hands after caring for someone who is sick, touching pet food,or treats, and touching an animal, or animal waste. You may use acetaminophen or NSAID medicines such as ibuprofen or naproxen to control fever, unless another medicine was prescribed. Talk with your provider before using these medicines if you have chronic liver or kidney disease or ever had a stomach ulcer or digestive bleeding. Never give aspirin to anyone younger than 18 who is ill with a fever. It may cause severe liver damage. Don't use NS AID medicines if you are already taking one for another condition such as arthritis or take aspirinfor heart disease or after a stroke. Don't use tobacco or drink alcohol. These may make your symptoms worse. If you have trouble stopping either substance, ask your provider for treatment resources. If medicines for vomiting were prescribed, take as directed. Tell your provider if they don't work within the expected time period. Once vomiting stops, then follow these guidelines: During the first 12 to 24 hours, follow the diet below: Fruit juices. Apple, grape juice, clear fruit drinks, and electrolyte replacement drinks. Beverages. Water, soft drinks without caffeine; mineral water (plain or flavored), and decaffeinated tea and coffee. Soups. Clear broth and bouillon. Desserts. Plain gelatin, ice pops, and fruit juice bars. As you feel better, you may add 6 to 8 ounces of yogurt per day. During the next 24 hours you may add the following to the above: Hot cereal, plain toast, bread, rolls, and crackers Plain noodles, rice, mashed potatoes, and chicken noodle or rice soup Unsweetened canned fruit such as applesauce, bananas. Don't have pineapple or citrus. Limit caffeine and chocolate. No spices or seasonings except salt. During the next 24 hours: Gradually go back to your normal diet, as you feel better and your symptoms lessen. Follow-up care Follow up with your healthcare provider as advised. When to seek medical advice Call your healthcare provider right away if any of these occur: Constant right-sided lower belly pain or increasing general belly pain Continued vomiting (unable to keep liquids down) for 24 hours Vomiting blood or what looks like coffee grounds Swollen belly Frequent diarrhea (more than 5 times a day), or blood (red or black color) or mucus in diarrhea Peeing less than usual or extreme thirst Weakness, dizziness, or fainting Unusually drowsy or confused Fever of 100.4F (38C) oral or higher, or as directed by your provider Yellow color of the eyes or skin Other symptoms get worse or you have new symptoms Last Reviewed Date: 04/26/202119992772-5541 [employer]. All rights reserved. This information is not intended as a substitute for professional medical care. Always follow your healthcare professional's instructions. * Care Plan - Akosua Brooks RN - 06/25/2023 6:10 PM EST Clinical Goal(s): Pt will have no falls this shift (06/25/23 0725) Possible barriers to meeting goal(s)/advancing plan of care: High fall risk Stability of the patient: Moderately stable - low risk of patient condition declining or worsening Summary regarding today's goal(s): Met: No falls this shift Recommendations: Ensure all fall protocols are implemented * Care Plan - Rhona Barron RN - 06/25/2023 5:33 AM EST Clinical Goal(s): Patient will sleep for 4 hours or more this shift. (06/24/232034) Possible barriers to meeting goal(s)/advancing plan of care: Admitting diagnosis Stability of the patient: Moderately stable - low risk of patient condition declining or worsening Summary regarding today's goal(s): Met: Patient slept for 4 hours or more this shift. Recommendations: Continue with plan of care. * Ancillary Progress Note - Luciana Edwards, Farm Adviser - 06/24/2023 5:21 PM EST CARE MANAGEMENT - ADULT INITIAL SCREENING [facility] [address] Name: Dedrick Peters Location: [facility] [id number] Date: 06/24/2023 Time: 5:22 PM Discussed patient with the interdisciplinary care team. This Freezer Person performed a chart review and met with pt and at bedside to complete admission screen and assessed needs for transition planning. The respiratory care instructor role and services were explained and emotional support was provided. Chief Complaint: Nausea Prior Living Arrangements What was your living situation prior to admission/observation?: With Spouse (06/24/231718) Living Quarters: House (06/24/231718) Number of steps to enter living quarters:: 0 (06/24/231718) Do you have serious difficulty walking or climbing stairs? (5 years old or older): Yes (06/23/231428) History of falling: No (06/24/23729) Prior Level of Functioning Describe the patient's ability prior to admission/observation to perform ADLs: Performs independently (06/24/231718) Requires assistance with: Bathing (06/24/231718) Describe the patient's mobility status prior to admission: Patient ambulates independently (06/24/231718) Patient uses assistive device: Yes (06/24/231718) If yes, choose:: Walker (06/24/231718) Caregiver Information Patient Contacts Name Relation Home Work Mobile Soledad Peters Spouse [phone] Huma Hernández Adult Child [phone] Risk Stratification/Psychosocial/Care Gaps Risk Stratification Psycho Social / Medical Concerns Identified: None Identified (06/24/231718) Accessed [employer]ines to connect patients to social care resources: No (06/24/231718) OBRA or OPTIONS needed for placement: No (06/24/231718) Readmission Risk Score: 33.37 (06/24/231599) AM-PAC Score With Stairs : 16 (06/24/23729) Prior to Admission Services Services Prior to Admission MANAGER BEHAVIORAL Services (Services received within the last 30 days with exception, Psych within last two years): [facility] (06/24/231718) Agency contacted: No (06/24/231718) [place] Dept. of Aging (PDA) Waiver Program: N/A (06/24/231718) MANAGER BEHAVIORAL Transportation (Services received within the last 30 days): Family/Friends Personal Vehicle (06/24/231718) Outpatient Freezer Person: Patient Care Team: Emeli Toledo, RN as Outside Machinist Helper ([facility]) Patient/Family Expectations: to get well and return home Pt lives with in a one story home. He completes most ADL's independently, does require minimalassistance with bathing which helps with. Pt does use a walker to assist with ambulation. Pt also has oxygen 1.5L at night from [facility]. Pt [facility] with [facility] and [facility] is to start buthave not yet per . If a SNF is need pt would like a list CM will provide pt with list of SNF . Pt provides transport to appointments. For further screening information, please refer to the Care Management flow document. * Ancillary Progress Note - Lindsay Clemens, PT - 06/24/2023 12:14 PM EST Attempted PT consult at 0745 and patient refused due to nausea Attempted PT consult at 1145 and patient was off of the floor for MRI. Will attempt PT consult again later today or on 06/27 based on schedule and patients tolerance. * Care Plan - Rhona Barron RN - 06/24/2023 6:00 AM EST Clinical Goal(s): Patient will remain free from falls this shift. (06/23/231949) Possible barriers to meeting goal(s)/advancing plan of care: Vision impairment, Environment Stability of the patient: Moderately stable - low risk of patient condition declining or worsening Summary regarding today's goal(s): Met: Patient remained free from falls this shift. Recommendations: Continue with plan of care. * Ancillary Progress Note - Krysta Seymour RRT - 06/23/2023 6:54 PM EST Patient refusing overnight [facility] cpap machine for the night due to an upset stomach. Patient would like to wear CPAP tomorrow, 06/24. Order modified from 06/23 to 06/24. MANAGER ER will continue to monitor patient overnight. * Care Plan - Alondra Sun RN - 06/23/2023 6:35 PM EST Clinical Goal(s): Patient will remain free from falls this shift. (06/23/23 3396) Possible barriers to meeting goal(s)/advancing plan of care: weakness, nausea/ vomiting Stability of the patient: Moderately stable - low risk of patient condition declining or worsening Summary regarding today's goal(s): Met: Patient remained free from falls this shift. Recommendations: Maintain fall precautions and reinforce call palomo usage, as needed. * Ancillary Progress Note - Ayesha Montemayor, PT - 06/23/2023 5:07 PM EST Pt asleep in bedside chair when PT approached. Pt easily awoken but stated he still does not feel well enough to participate. Treatment will be attempted at a later time or date dependent on schedule, pt tolerance, and pt medical status. * ED Client Advisor Note - Luciana Hurd RN - 06/23/2023 1:51 PM EST Report called to 5A and given to Alondra MCCOLLUM * Medical Necessity - Gail Winslow RN - 06/23/2023 12:54 PM EST AdmissionCare Guideline: Vomiting - INPT, Inpatient Based on the indications selected for the patient, the bed status of Admit to Inpatient was determined to be MET The following indications were selected as present at the time of evaluation of the patient: Vomiting that is severe or persistent, as indicated by 1 or more of the following: - - Pattern or content of vomitus suggests severe underlying cause or complication (eg, projectile, feculent, bilious, coffee ground, bloody). Additional Information: Patient reports that he is any persistent vomiting since yesterday. He has been unable to tolerate oral intake. He did not eat or drink yesterday. He has had profuse vomiting and dry heaving. He has also had some generalized abdominal pain. AdmissionCare documentation entered by: Gail Winslow [facility], 27th edition, Copyright 2022 [facility] [facility] [employer] All Rights Reserved. [id number] Solely for purpose of utilization review and payment; not a diagnostic tool * ED Client Advisor Note - Rachel Herring RN - 06/23/2023 10:24 AM EST Late entry: pt arrives to ED with complaints of abdominal pain, N/V, and being unable to tolerate oral intake. Also reports generalized weakness. Reports a home nurse and PCP told pt to come to ED. Reports taking a zofran around 0900. Pt does have cancer, and had liver biopsy 2 weeks ago. Pt's wifeunable to describe results. Denies chemo/radiation treatment currently. Reports retaining gallbladder and appendix. Denies fever/chills, CP, SOB,. Reports being treated for UTI with antibiotics, denies any s/s. Pt is alert and oriented x4, lethargic. reports he did not sleep last night. Heart sounds normal. Lung sounds clear. +movement and sensation in all extremities. documented in this encounter Plan of Treatment Upcoming Encounters Date Type Department Care Team (Late st Contact Info) Description 06/27/2023 12:30 PM EST Home Visit [facility] [address] [place] [address] Emeli Toledo RN 132 [facility] [place] [address] 06/29/2023 12:45 PM EST Nurse Only Family Practice Deangelo Dotson [address] [place] [address] Nurse Deangelo Fam Prac [address] [place] [address] 06/29/2023 1:00 PM EST Office Visit Family Practice Deangelo Dotson [address] [place] [phone] Angel Snyder, DO [address] [place] [address] 07/06/2023 12:40 PM EST Office Visit Podiatry [facility] [address] [facility] [place] [place] [address] Felicita Copeland DPM [address] [facility] [place] [address] 07/27/2023 12:40 PM EST Office Visit G[facility]enter[facility], [facility] [address] [facility] [phone] Trina Plaza DO [address] [place] [address] 08/03/2023 1:30 PM EST Office Visit Urology [facility] [place] [address] [place] [address] [place] [address] Ryan Cunningham MD 27 [facility] [place] [address] [place] [address] 09/11/2023 2:00 PM EDT Appointment Radiology, [address] [place] [phone] 09/11/2023 2:30 PM EDT PulmDiagnostic Pulmonary Function Lab [facility] [place] [address] [place] [address] [place], Pft [address] [facility] [place] [address] 09/11/2023 3:00 PM EDT Office Visit Pulmonary Medicine Keavy Halley [place] [address] [place] [phone] Saul Moscoso MD [address] [place] [address] 10/25/2023 2:40 PM EDT Office Visit Family Practice [facility] [place] 200 [facility] [place], [place] [address] Mirza Mcgee III, MD 200 [facility] [place], [place] [address] 05/02/2024 1:00 PM EST Office Visit Sleep Disorders, [facility] 400 [facility] [place] [address] Alesha John MD 400 [place] [address] Pending Results Name Type Priority Associated Diagnoses Date /Time CULTURE, BLOOD Lab Routine 06/23/2023 11:50 AM EST CULTURE, BLOOD Lab Routine 06/23/2023 11:55 AM EST Health Maintenance Due Date Last Done Comments [...] this encounter Medical Devices Implanted Type Area Outside Salesperson Device Identifier Shelf Expiration Date Model / Serial / Lot Femur Nexgn E Right - [id number] Implanted:Qty: 1 on 05/12/2008 at OR [facility] Right: Knee [employer] 02/24/2018 [id number] / / [id number] Femur Nexgn E Left - [id number] Implanted:Qty: 1 on 11/19/2008 at OR [facility] Left: Knee [employer] [id number] / / [id number] Sut Steel 6 [id number] - [id number] Implanted:Qty: 6 on 07/11/2011 at OR [facility] N/A: Chest DO NOT USE 01/09/2016 / / [id number] [id number] Lens [id number] Implanted:Qty: 1 on 11/07/2013 at OR [facility] Right: Eye 06/25/2016 [id number] / [id number] / [id number] documented as of this encounter Procedures Procedure Name Priority Date/Time Associated Diagnosis Comments GLUCOSE METER, POINT OF CARE [facility] 06/26/2023 11:29 AM EST GLUCOSE METER, POINT OF CARE [facility] 06/26/2023 7:43 AM EST BASIC METABOLIC PANEL Routine 06/26/2023 6:32 AM EST CBC Routine 06/26/2023 6:32 AM EST GLUCOSE METER, POINT OF CARE [facility] 06/25/2023 4:41 PM EST GLUCOSE METER, POINT OF CARE [facility] 06/25/2023 11:21 AM EST GLUCOSE METER, POINT OF CARE [facility] 06/25/2023 7:44 AM EST BASIC METABOLIC PANEL Routine 06/25/2023 5:58 AM EST CBC Routine 06/25/2023 5:58 AM EST GLUCOSE METER, POINT OF CARE [facility] 06/24/2023 9:25 PM EST GLUCOSE METER, POINT OF CARE [facility] 06/24/2023 4:22 PM EST GLUCOSE METER, POINT OF CARE [facility] 06/24/2023 12:31 PM EST MRI BRAIN W WO CONTRAST Routine 06/24/2023 11:49 AM EST GLUCOSE METER, POINT OF CARE [facility] 06/24/2023 8:14 AM EST COMPREHENSIVE METABOLIC PANEL Routine 06/24/2023 6:59 AM EST PT INR Routine 06/24/2023 6:59 AM EST PHOSPHORUS Routine 06/24/2023 6:59 AM EST CBC Routine 06/24/2023 6:59 AM EST MAGNESIUM Routine 06/24/2023 6:59 AM EST GLUCOSE METER, POINT OF CARE [facility] 06/23/2023 9:46 PM EST GLUCOSE METER, POINT OF CARE [facility] 06/23/2023 4:54 PM EST POTASSIUM STAT 06/23/2023 3:51 PM EST CULTURE, URINE, QUANTITATIVE Routine 06/23/2023 1:53 PM EST CULTURE, BLOOD Routine 06/23/2023 11:55 AM EST CULTURE, BLOOD Routine 06/23/2023 11:[address] ABD/PELVIS W IV CONTRAST - WO ORAL CONTRAST STAT 06/23/2023 11:27 AM EST MICROSCOPIC EXAM, URINE STAT 06/23/2023 11:16 AM EST URINALYSIS, REFLEX TO MICROSCOPIC STAT 06/23/2023 11:16 AM EST PT INR STAT 06/23/2023 11:07 AM EST RESPIRATORY PATHOGEN PANEL, PCR STAT 06/23/2023 10:43 AM EST DIFFERENTIAL, AUTOMATED STAT 06/23/2023 10:42 AM EST TROPONIN T, HIGH SENSITIVITY STAT 06/23/2023 10:42 AM EST PROCALCITONIN STAT 06/23/2023 10:42 AM EST COMPREHENSIVE METABOLIC PANEL STAT 06/23/2023 10:42 AM EST CBC STAT 06/23/2023 10:42 AM EST PHOSPHORUS Add-on 06/23/2023 10:42 AM EST LIPASE STAT 06/23/2023 10:42 AM EST LACTATE STAT 06/23/2023 10:42 AM EST CBC STAT 06/23/2023 10:42 AM EST MAGNESIUM STAT 06/23/2023 10:42 AM EST HC ECG TRACING ONLY STAT 06/23/2023 1 0:26 AM EST Chest pain documented in this encounter Results * (ABNORMAL) GLUCOSE METER, POINT OF CARE (06/26/2023 11:29 AM EST) [facility] Glucose Meter 169(H) 70 - 120 mg/dL 06/26/2023 11:52 AM EST [facility] Blood Whole blood specimen / Unknown 06/26/2023 11:29 AM EST 06/26/2023 11:52 AM EST Kostas James DO LAB POINT OF CA RE TEST DOCKED DEVICE UNSOLICITED RESULTS [facility] [address] [facility] [place] [address] * (ABNORMAL) GLUCOSE METER, POINT OF CARE (06/26/2023 7:43 AM EST) Glucose Meter 141(H) 70 - 120 mg/dL 06/26/2023 8:19 AM EST [facility] Blood Whole blood specimen / Unknown 06/26/2023 7:43 AM EST 06/26/2023 8:19 AM EST Kostas James DO LAB POINT OF CA RE TEST DOCKED DEVICE UNSOLICITED RESULTS [facility] 400 [facility] [place] [address] * (ABNORMAL) CBC (06/26/2023 6:32 AM EST) WBC 12.10(H) 4.00 - 10.80 K/uL 06/26/2023 6:36 AM EST LABORATORY [facility] RBC 4.38 4.50 - 5.25 M/uL 06/26/2023 6:36 AM EST LABORATORY GL HGB 13.6(L) 14.0 - 16.8 g/dL 06/26/2023 6:36 AM EST LABORATORY GL HCT 39.1(L) 40.0 - 48.4 % 06/26/2023 6:36 AM EST LABORATORY GL MCV 89.3 82.0 - 99.5 fL 06/26/2023 6:36 AM EST LABORATORY GL MCH 31.1 27.0 - 34.0 pg 06/26/2023 6:36 AM EST LABORATORY GL MCHC 34.8 32.0 - 36.0 g/dL 06/26/2023 6:36 AM EST LABORATORY GL RDW 13.5 11.5 - 15.5 % 06/26/2023 6:36 AM EST LABORATORY GL PLT 161 140 - 400 K/uL 06/26/2023 6:36 AM EST LABORATORY GL MPV 11.0 6.6 - 11.1 fL 06/26/2023 6:36 AM EST LABORATORY GL nRBCs 0 <=0 /100 WBCs 06/26/2023 6:36 AM EST LABORATORY GL Blood Venous blood specimen / Unknown Venipuncture / Unknown 06/26/2023 6:32 AM EST 06/26/2023 6:34 AM EST Kostas James DO LAB BLOOD ORDER [facility] GL [address] [place] [address] * (ABNORMAL) BASIC METABOLIC PANEL (06/26/2023 6:32 AM EST) BUN 21(H) 6 - 20 mg/dL 06/26/2023 6:52 AM EST LABORATORY [facility] Creatinine 0.8 0.6 - 1.2 mg/dL 06/26/2023 6:52 AM EST LAB[facility]ATORY [facility] Estimated Glomerular Filtration Rate 85 >=60 mL/min 06/26/2023 6:52 AM EST LAB[facility]ATORY [facility] Comment:eGFR is calculated b ased on the CKD-EPI 2020 equation Sodium 138 135 - 146 mmol/L 06/26/2023 6:52 AM EST LAB[facility]ATORY [facility] Potassium 4.2 3.5 - 5.1 mmol/L 06/26/2023 6:52 AM EST [facility]ORY [facility] Comment:Result may be falsel y elevated due to hemolysis. Chloride 102 98 - 107 mmol/L 06/26/2023 6:52 AM EST LAB[facility]ATORY [facility] CO2 27 22 - 32 mmol/L 06/26/2023 6:52 AM EST LAB[facility]ORY [facility] Anion Gap 9 7 - 15 mmol/L 06/26/2023 6:52 AM EST LAB[facility]ATORY [facility] Glucose 149(H) 70 - 120 mg/dL 06/26/2023 6:52 AM EST LAB[facility]ATORY [facility] Calcium 8.3(L) 8.4 - 10.2 mg/dL 06/26/2023 6:52 AM EST LAB[facility]ATORY [facility] Blood Venous blood specimen / Unknown Venipuncture / Unknown 06/26/2023 6:32 AM EST 06/26/2023 6:34 AM EST Kostas Lunaordano DO LAB BLOOD ORDER JAQUAN Performing Organization Address City/[facility]/ZIP Co de Phone Number LABORATORY GL [address] [place] [address] * (ABNORMAL) GLUCOSE METER, POINT OF CARE (06/25/2023 4:41 PM EST) Glucose Meter 165(H) 70 - 120 mg/dL 06/25/2023 4:59 PM EST [facility] Blood Whole blood specimen / Unknown 06/25/2023 4:41 PM EST 06/25/2023 4:59 PM EST Kostas James DO LAB POINT OF CA RE TEST DOCKED DEVICE UNSOLICITED RESULTS Performing Organization Address [facility] Co de Phone Number [facility] [address] [place] [address] * (ABNORMAL) GLUCOSE METER, POINT OF CARE (06/25/2023 11:21 AM EST) Glucose Meter 174(H) 70 - 120 mg/dL 06/25/2023 11:27 AM EST [facility] Blood Whole blood specimen / Unknown 06/25/2023 11:21 AM EST 06/25/2023 11:27 AM EST Kostas James DO LAB POINT OF CA RE TEST DOCKED DEVICE UNSOLICITED RESULTS Performing Organization Address [facility] de Phone Number [facility] [address] [place] [address] * (ABNORMAL) GLUCOSE METER, POINT OF CARE (06/25/2023 7:44 AM EST) Glucose Meter 126(H) 70 - 120 mg/dL 06/25/2023 7:50 AM EST [facility] Blood Whole blood specimen / Unknown 06/25/2023 7:44 AM EST 06/25/2023 7:50 AM EST Kostas James DO LAB POINT OF CA RE TEST DOCKED DEVICE UNSOLICITED RESULTS Performing Organization Address [facility] Co de Phone Number [facility] 400 [facility] [place] [address] * (ABNORMAL) CBC (06/25/2023 5:58 AM EST) WBC 11.12(H) 4.00 - 10.80 K/uL 06/25/2023 6:15 AM EST LABORATORY [facility] RBC 4.58 4.50 - 5.25 M/uL 06/25/2023 6:15 AM EST LABORATORY GL HGB 14.0 14.0 - 16.8 g/dL 06/25/2023 6:15 AM EST LABORATORY [facility] HCT 41.5 40.0 - 48.4 % 06/25/2023 6:15 AM EST LABORATORY [facility] MCV 90.6 82.0 - 99.5 fL 06/25/2023 6:15 AM EST LAB[facility]ATORY [facility] MCH 30.6 27.0 - 34.0 pg 06/25/2023 6:15 AM EST LAB[facility]ATORY [facility] MCHC 33.7 32.0 - 36.0 g/dL 06/25/2023 6:15 AM EST LABORATORY [facility] RDW 13.8 11.5 - 15.5 % 06/25/2023 6:15 AM EST LABORATORY [facility] PLT 197 140 - 400 K/uL 06/25/2023 6:15 AM EST LAB[facility]ATORY [facility] MPV 11.6 6.6 - 11.1 fL 06/25/2023 6:15 AM EST LAB[facility]ATORY [facility] nRBCs 0 <=0 /100 WBCs 06/25/2023 6:15 AM EST [facility]ATORY [facility] Blood Venous blood specimen / Unknown Venipuncture / Unknown 06/25/2023 5:58 AM EST 06/25/2023 6:06 AM EST Kostas James DO LAB BLOOD ORDER JAQUAN LABORATORY [facility] [address] [facility] [place] [address] * (ABNORMAL) BASIC METABOLIC PANEL (06/25/2023 5:58 AM EST) BUN 19 6 - 20 mg/dL 06/25/2023 6:37 AM EST LABORATORY GL Creatinine 1.0 0.6 - 1.2 mg/dL 06/25/2023 6:37 AM EST LAB[facility]ATORY [facility] Estimated Glomerular Filtration Rate 77 >=60 mL/min 06/25/2023 6:37 AM EST LAB[facility]ORY [facility] Comment:eGFR is calculated b ased on the CKD-EPI 2020 equation Sodium 139 135 - 146 mmol/L 06/25/2023 6:37 AM EST LAB[facility]ATORY [facility] Potassium 4.3 3.5 - 5.1 mmol/L 06/25/2023 6:37 AM EST [facility] Comment:Result may be falsel y elevated due to hemolysis. Chloride 102 98 - 107 mmol/L 06/25/2023 6:37 AM EST LAB[facility]ATORY [facility] CO2 27 22 - 32 mmol/L 06/25/2023 6:37 AM EST [facility]ORY [facility] Anion Gap 10 7 - 15 mmol/L 06/25/2023 6:37 AM EST [facility] Glucose 136(H) 70 - 120 mg/dL 06/25/2023 6:37 AM EST [facility] Calcium 8.3(L) 8.4 - 10.2 mg/dL 06/25/2023 6:37 AM EST [facility] Blood Venous blood specimen / Unknown Venipuncture / Unknown 06/25/2023 5:58 AM EST 06/25/2023 6:06 AM EST Kostas James DO LAB BLOOD ORDER [facility]QU[facility] [address] [place] [address] * GLUCOSE METER, POINT OF CARE (06/24/2023 9:25 PM EST) [facility] Glucose Meter 120 70 - 120 mg/dL 06/24/2023 9:30 PM EST [facility] Blood Whole blood specimen / Unknown 06/24/2023 9:25 PM EST 06/24/2023 9:30 PM EST Kostas James DO LAB POINT OF CA RE TEST DOCKED DEVICE UNSOLICITED RESULTS Performing Organization Address City/[facility]/ZIP Co de Phone Number [facility] [address] [place] [address] * (ABNORMAL) GLUCOSE METER, POINT OF CARE (06/24/2023 4:22 PM EST) Glucose Meter 173(H) 70 - 120 mg/dL 06/24/2023 4:41 PM EST [facility] Blood Whole blood specimen / Unknown 06/24/2023 4:22 PM EST 06/24/2023 4:41 PM EST Kostas Lunaordano DO LAB POINT OF CA RE TEST DOCKED DEVICE UNSOLICITED RESULTS Performing Organization Address [facility] Co de Phone Number [facility] [address] [place] [address] * (ABNORMAL) GLUCOSE METER, POINT OF CARE (06/24/2023 12:31 PM EST) Glucose Meter 148(H) 70 - 120 mg/dL 06/24/2023 12:36 PM EST [facility] Blood Whole blood specimen / Unknown 06/24/2023 12:31 PM EST 06/24/2023 12:36 PM EST Kostasharry Lunajakob NINO LAB POINT OF CA RE TEST DOCKED DEVICE UNSOLICITED RESULTS Performing Organization Address [facility] de Phone Number [facility] [address] [place] [address] * MRI BRAIN W WO CONTRAST (06/24/2023 11:49 AM EST) Anatomical Region Laterality Modality Neuro, Head Magnetic Resonan ce 06/24/2023 12:0 5 PM EST Impressions 06/24/2023 12:03 PM EST IMPRESSION: No evidence of intracranial metastases. Narrative 06/24/2023 12:03 PM EST EXAM: MRI BRAIN W WO CONTRAST - 06/24/2023 HISTORY: 88 y/o M, evaluate for brain mets; hx of high grade neuroendocrine tumor TECHNIQUE: Multisequence multiplanar MRI of the brain was performed prior to and following the intravenous administration of 9.5 cc Gadavist contrast. COMPARISON: None FINDINGS: BRAIN PARENCHYMA: No acute infarct or hemorrhage. No intracranial mass identified. No mass effect or herniation. Confluent periventricular and subcortical white matter hypodensities are nonspecific but likely the sequela chronic microvascular ischemic change. No abnormal enhancement. VENTRICLES/EXTRA-AXIAL SPACES: The ventricles and sulci are symmetric, but enlarged. No hydrocephalus or extra-axial fluid collections. FLOW VOIDS: Intact. SINUSES/MASTOIDS: No significant mucosal thickening. Mastoid cells are clear bilaterally. CALVARIUM: Intact. Bilateral lens replacement. Procedure Note Rolan Soto MD - 06/24/2023 EXAM: MRI BRAIN W WO CONTRAST - 06/24/2023 HISTORY: 88 y/o M, evaluate for brain mets; hx of high grade neuroendocrinetumor TECHNIQUE: Multisequence multiplanar MRI of the brain was performed prior to andfollowing the intravenous administration of 9.5 cc Gadavist contrast. COMPARISON: None FINDINGS: BRAIN PARENCHYMA: No acute infarct or hemorrhage. No intracranial massidentified. No mass effect or herniation. Confluent periventricular andsubcortical white matter hypodensities are nonspecific but likely thesequela chronic microvascular ischemic change. No abnormal enhancement. VENTRICLES/EXTRA-AXIAL SPACES: The ventricles and sulci are symmetric, butenlarged. No hydrocephalus or extra-axial fluid collections. FLOW VOIDS: Intact. SINUSES/MASTOIDS: No significant mucosal thickening. Mastoid cells areclear bilaterally. CALVARIUM: Intact. Bilateral lens replacement. IMPRESSION IMPRESSION: No evidence of intracranial metastases. Margarito Biggs MD RAD MRI-M[facility] * (ABNORMAL) GLUCOSE METER, POINT OF CARE (06/24/2023 8:14 AM EST) [facility] Glucose Meter 125(H) 70 - 120 mg/dL 06/24/2023 8:24 AM EST [facility] Blood Whole blood specimen / Unknown 06/24/2023 8:14 AM EST 06/24/2023 8:24 AM EST Kostas James DO LAB POINT OF CA RE TEST DOCKED DEVICE UNSOLICITED RESULTS [facility] [address] [place] [address] * (ABNORMAL) COMPREHENSIVE METABOLIC PANEL (06/24/2023 6:59 AM EST) BUN 9 6 - 20 mg/dL 06/24/2023 7:47 AM EST LAB[facility]ATORY [facility] Creatinine 0.8 0.6 - 1.2 mg/dL 06/24/2023 7:47 AM EST LAB[facility]ORY [facility] Estimated Glomerular Filtration Rate 87 >=60 mL/min 06/24/2023 7:47 AM EST [facility] Comment:eGFR is calculated b ased on the CKD-EPI 2020 equation Sodium 139 135 - 146 mmol/L 06/24/2023 7:47 AM EST LAB[facility]ATORY [facility] Potassium 3.3(L) 3.5 - 5.1 mmol/L 06/24/2023 7:47 AM EST [facility] Chloride 99 98 - 107 mmol/L 06/24/2023 7:47 AM EST [facility] CO2 28 22 - 32 mmol/L 06/24/2023 7:47 AM EST [facility] Anion Gap 12 7 - 15 mmol/L 06/24/2023 7:47 AM EST [facility] Glucose 132(H) 70 - 120 mg/dL 06/24/2023 7:47 AM EST [facility] Albumin 3.8 3.8 - 5.0 g/dL 06/24/2023 7:47 AM EST [facility] AST 67(H) 10 - 50 U/L 06/24/2023 7:47 AM EST [facility] Alkaline Phosphatase 192(H) 35 - 130 U/L 06/24/2023 7:47 AM EST [facility] Bilirubin, Total 1.1 <=1.2 mg/dL 06/24/2023 7:47 AM EST [facility] Calcium 8.4 8.4 - 10.2 mg/dL 06/24/2023 7:47 AM EST [facility] Protein 6.7 6.0 - 8.3 g/dL 06/24/2023 7:47 AM EST [facility]ORY [facility] ALT 44 10 - 50 U/L 06/24/2023 7:47 AM EST [facility] Blood Venous blood specimen / Unknown Venipuncture / Unknown 06/24/2023 6:59 AM EST 06/24/2023 7:18 AM EST Radha JUNIORNP LAB BLOOD OR DERABLES Performing Organization Address [facility] Co de Phone Number LABORATORY [address] [address] * PT INR (06/24/2023 6:59 AM EST) Prothrombin Time 13.9 11.6 - 15.2 seconds 06/24/2023 7:40 AM EST LABORATORY [facility] INR 1.1 0.8 - 1.2 06/24/2023 7:40 AM EST LAB[facility]ATORY [facility] Blood Venous blood specimen / Unknown Venipuncture / Unknown 06/24/2023 6:59 AM EST 06/24/2023 7:18 AM EST Narrative LABORATORY [facility] - 06/24/2023 7:40 AM EST Warfarin Therapy INR: 2.0-3.0 conventional anticoagulation INR: 2.5-3.5 high intensity anticoagulation Radha JUNIORNP LAB BLOOD OR DERABLES Performing Organization Address [facility] Co de Phone Number LABORATORY [address] [id number] * PHOSPHORUS (06/24/2023 6:59 AM EST) Phosphorus 2.9 2.5 - 4.8 mg/dL 06/24/2023 7:47 AM EST LAB[facility]ATORY [facility] Blood Venous blood specimen / Unknown Venipuncture / Unknown 06/24/2023 6:59 AM EST 06/24/2023 7:18 AM EST Radha JUNIORNP LAB BLOOD OR DERABLES Performing Organization Address [facility] Co de Phone Number LABORATORY [address] [address] * MAGNESIUM (06/24/2023 6:59 AM EST) Magnesium 1.9 1.5 - 2.6 mg/dL 06/24/2023 7:47 AM EST LAB[facility]ATORY [facility] Blood Venous blood specimen / Unknown Venipuncture / Unknown 06/24/2023 6:59 AM EST 06/24/2023 7:18 AM EST Radha Stapleton Dmitriyanibal AFTAB LAB BLOOD OR DERABLES LABORATORY [address] [phone] * CBC (06/24/2023 6:59 AM EST) [facility] WBC 7.93 4.00 - 10.80 K/uL 06/24/2023 8:19 AM EST LABORATORY GL RBC 4.97 4.50 - 5.25 M/uL 06/24/2023 8:19 AM EST LABORATORY GL HGB 15.0 14.0 - 16.8 g/dL 06/24/2023 8:19 AM EST LABORATORY GL HCT 44.6 40.0 - 48.4 % 06/24/2023 8:19 AM EST LABORATORY GL MCV 89.7 82.0 - 99.5 fL 06/24/2023 8:19 AM EST LABORATORY GL MCH 30.2 27.0 - 34.0 pg 06/24/2023 8:19 AM EST LABORATORY GL MCHC 33.6 32.0 - 36.0 g/dL 06/24/2023 8:19 AM EST LABORATORY GL RDW 13.8 11.5 - 15.5 % 06/24/2023 8:19 AM EST LABORATORY GL PLT 174 140 - 400 K/uL 06/24/2023 8:19 AM EST LABORATORY GL MPV 11.1 6.6 - 11.1 fL 06/24/2023 8:19 AM EST LABORATORY GL nRBCs 0 <=0 /100 WBCs 06/24/2023 8:19 AM EST LABORATORY GL Blood Venous blood specimen / Unknown Venipuncture / Unknown 06/24/2023 6:59 AM EST 06/24/2023 7:18 AM EST Radha Daya UGALDE LAB BLOOD OR DERABLES LABORATORY [address] [id number] * GLUCOSE METER, POINT OF CARE (06/23/2023 9:46 PM EST) Glucose Meter 115 70 - 120 mg/dL 06/23/2023 10:00 PM EST [facility] Blood Whole blood specimen / Unknown 06/23/2023 9:46 PM EST 06/23/2023 10:00 PM EST Kostas James DO LAB POINT OF CA RE TEST DOCKED DEVICE UNSOLICITED RESULTS Performing Organization Address City/[facility]/ZIP Co de Phone Number [facility] [address] [place] [phone] * (ABNORMAL) GLUCOSE METER, POINT OF CARE (06/23/2023 4:54 PM EST) Glucose Meter 125(H) 70 - 120 mg/dL 06/23/2023 4:57 PM EST [facility] Blood Whole blood specimen / Unknown 06/23/2023 4:54 PM EST 06/23/2023 4:57 PM EST Margarito Biggs MD LAB POINT OF CARE T EST DOCKED DEVICE UNSOLICITED RESULTS Performing Organization Address [facility]/ZIP Co de Phone Number [facility] [address] [place] [phone] * (ABNORMAL) POTASSIUM (06/23/2023 3:51 PM EST) Potassium 3.1(L) 3.5 - 5.1 mmol/L 06/23/2023 4:07 PM EST LABORATORY GL Blood Venous blood specimen / Unknown Venipuncture / Unknown 06/23/2023 3:51 PM EST 06/23/2023 3:54 PM EST Margarito Biggs MD LAB BLOOD ORDERABLE S Performing Organization Address City/[facility]/ZIP Co de Phone Number LABORATORY GL [address] [place] [address] * CULTURE, URINE, QUANTITATIVE (06/23/2023 1:53 PM EST) Culture Growth No significant growth 06/24/2023 1:46 PM EST LABORATORY [facility] Urine Urine specimen obtained by clean catch procedure / Unknown Non-blood Collection / Unknown 06/23/2023 1:53 PM EST 06/23/2023 1:59 PM EST Radha Daya Regulo U[facility] LAB MICRO - GENERAL ORDERABLES LABORATORY [facility] [address] [place] [address] * CT ABD/PELVIS W IV CONTRAST - WO ORAL CONTRAST (06/23/2023 11:27 AM EST) Anatomical Region Laterality Modality Body, Abdomen, Pelvis Computed T omography 06/23/2023 11:2 0 AM EST Impressions 06/23/2023 11:57 AM EST IMPRESSION: 1. No acute findings within the abdomen or pelvis. 2. 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 3. Necrotic abdominal lymphadenopathy and mild retroperitoneal lymphadenopathy likely metastatic in nature. Questionable peritoneal metastasis unchanged. 4. Additional nonemergent findings as above. THIS DOCUMENT HAS BEEN ELECTRONICALLY SIGNED BY JACK LYNN MD Narrative 06/23/2023 11:57 AM EST PROCEDURE INFORMATION: Exam: CT Abdomen And Pelvis With Contrast Exam date and time: 06/23/2023 11:20 AM Age: 88 years old Clinical indication: Abdominal pain; Generalized; Additional info: Generalized abdominal pain; CA history; Vomiting TECHNIQUE: Imaging protocol: Computed tomography of the abdomen and pelvis with contrast. Radiation optimization: All CT scans at this facility use at least one of these dose optimization techniques: automated exposure control; mA and/or kV adjustment per patient size (includes targeted exams where dose is matched to clinical indication); or iterative reconstruction. Contrast material: OPTIRAY; Contrast volume: 100 ml; Contrast route: INTRAVENOUS (IV); REPORTING DATA: Count of CT and Cardiac NM exams in prior 12 months: This patient has received 6 known CTs and 0 known cardiac nuclear medicine studies in the 12 months prior to the current study. COMPARISON: CT ABD/PELVIS WO IV/ORAL CONTRAST 06/10/2023 5:06 PM FINDINGS: Lungs: Chronic bronchiectasis posteriorly right lung base and mild bibasilar distal lung changes, stable. Heart: Heart is enlarged. Diaphragm: Small hiatal hernia. Liver: Multiple hypodense liver lesions better demonstrated on this contrast enhanced study measuring up to 2 cm highly suspicious for liver metastasis. Gallbladder and bile ducts: Normal. No calcified stones. No ductal dilation. Pancreas: Unremarkable. Main pancreatic duct is not significantly dilated. Spleen: Normal. No splenomegaly. Adrenal glands: Normal. No mass. Kidneys and ureters: Normal. No hydronephrosis. Stomach and bowel: Unremarkable. No obstruction. No mucosal thickening. Appendix: No evidence of appendicitis. Intraperitoneal space: 3.5 cm cystic lesion anterior to the left lobe of the liver within the peritoneal cavity as well as 2 small partially calcified solid nodules within the peritoneal cavity, possibly metastatic in nature. Vasculature: Scattered atherosclerotic changes of the abdominal aorta and iliac vessels. No aortic aneurysm. Lymph nodes: Enlarged necrotic lymph nodes within the upper abdomen measuring up to 3 cm likely metastatic in nature. Mild right periaortic lymphadenopathy more nonspecific, stable. Urinary bladder: Unremarkable as visualized. Reproductive: Prostate gland is mildly enlarged. Bones/joints: Diffuse mixed osteolytic/sclerotic bone changes T11 vertebral body with mild compression deformity unchanged likely metastatic in nature. Scattered small radiolucent bone lesions within the lower thoracic and lumbar spine suspicious for bone metastasis. Superimposed degenerative changes of the lumbar spine, stable. Soft tissues: Diastasis of the lower abdominal wall with small umbilical hernia unchanged. Procedure Note Jack Lynn MD - 06/23/2023 PROCEDURE INFORMATION: Exam: CT Abdomen And Pelvis With Contrast Exam date and time: 06/23/2023 11:20 AM Age: 88 years old Clinical indication: Abdominal pain; Generalized; Additional info:Generalized abdominal pain; CA history; Vomiting TECHNIQUE: Imaging protocol: Computed tomography of the abdomen and pelvis withcontrast. Radiation optimization: All CT scans at this facility use at least one ofthese dose optimization techniques: automated exposure control; mA and/or kV adjustment per patient size (includes targeted exams where dose is matchedto clinical indication); or iterative reconstruction. Contrast material: OPTIRAY; Contrast volume: 100 ml; Contrast route: INTRAVENOUS (IV); REPORTING DATA: Count of CT and Cardiac NM exams in prior 12 months: This patient hasreceived 6 known CTs and 0 known cardiac nuclear medicine studies in the 12 monthsprior to the current study. COMPARISON: CT ABD/PELVIS WO IV/ORAL CONTRAST 06/10/2023 5:06 PM FINDINGS: Lungs: Chronic bronchiectasis posteriorly right lung base and mildbibasilar distal lung changes, stable. Heart: Heart is enlarged. Diaphragm: Small hiatal hernia. Liver: Multiple hypodense liver lesions better demonstrated on thiscontrast enhanced study measuring up to 2 cm highly suspicious for livermetastasis. Gallbladder and bile ducts: Normal. No calcified stones. No ductaldilation. Pancreas: Unremarkable. Main pancreatic duct is not significantly dilated. Spleen: Normal. No splenomegaly. Adrenal glands: Normal. No mass. Kidneys and ureters: Normal. No hydronephrosis. Stomach and bowel: Unremarkable. No obstruction. No mucosal thickening. Appendix: No evidence of appendicitis. Intraperitoneal space: 3.5 cm cystic lesion anterior to the left lobe ofthe liver within the peritoneal cavity as well as 2 small partially calcifiedsolid nodules within the peritoneal cavity, possibly metastatic in nature. Vasculature: Scattered atherosclerotic changes of the abdominal aorta andiliac vessels. No aortic aneurysm. Lymph nodes: Enlarged necrotic lymph nodes within the upper abdomenmeasuring up to 3 cm likely metastatic in nature. Mild right periaorticlymphadenopathy more nonspecific, stable. Urinary bladder: Unremarkable as visualized. Reproductive: Prostate gland is mildly enlarged. Bones/joints: Diffuse mixed osteolytic/sclerotic bone changes [id number] body with mild compression deformity unchanged likely metastatic innature. Scattered small radiolucent bone lesions within the lower thoracic andlumbar spine suspicious for bone metastasis. Superimposed degenerative changes ofthe lumbar spine, stable. Soft tissues: Diastasis of the lower abdominal wall with small umbilicalhernia unchanged. IMPRESSION IMPRESSION: 1. No acute findings within the abdomen or pelvis. 2. 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 3. Necrotic abdominal lymphadenopathy and mild retroperitoneal lymphadenopathy likely metastatic in nature. Questionable peritoneal metastasis unchanged. 4. Additional nonemergent findings as above. THIS DOCUMENT HAS BEEN ELECTRONICALLY SIGNED BY JACK LYNN MD Izabel Doherty MD RAD CT * MICROSCOPIC EXAM, URINE (06/23/2023 11:16 AM EST) RBC, Urine 0-2 0 - 2 /HPF 06/23/2023 12:15 PM EST [facility] WBC, Urine 0-2 0 - 2 /HPF 06/23/2023 12:15 PM EST [facility] Bacteria, Urine 0-25 0 - 25 /HPF 06/23/2023 12:15 PM EST [facility] Urine Urine specimen obtained by clean catch procedure / Unknown Non-blood Collection / Unknown 06/23/2023 11:16 AM EST 06/23/2023 11:19 AM EST Izabel Doherty MD LAB URINE OR DERABLES LAB[facility]AT[facility] [address] [place] [address] * (ABNORMAL) URINALYSIS, REFLEX TO MICROSCOPIC (06/23/2023 11:16 AM EST) Color, Urine Yellow Light Yellow, Yellow, Dark Yellow 06/23/2023 11:51 AM EST [facility] Clarity, Urine Clear Clear 06/23/2023 11:51 AM EST [facility] Glucose, Urine Negative Negative mg/dL 06/23/2023 11:51 AM EST [facility] Bilirubin, Urine Negative Negative 06/23/2023 11:51 AM EST [facility] Ketone, Urine >=80(A) Negative mg/dL 06/23/2023 11:51 AM EST [facility] Specific [place], Urine 1.011 1.003 - 1.030 06/23/2023 11:51 AM EST [facility] Blood, Urine Trace(A) Negative 06/23/2023 11:51 AM EST [facility] pH, Urine 7.0 5.0 - 7.5 Units 06/23/2023 11:51 AM EST [facility] Protein, Urine 30(A) Negative mg/dL 06/23/2023 11:51 AM EST [facility] Urobilinogen, Urine 1.0 0.2, 1.0 mg/dL 06/23/2023 11:51 AM EST [facility] Nitrite, Urine Negative Negative 06/23/2023 11:51 AM EST [facility] Esterase, Urine Negative Negative 06/23/2023 11:51 AM EST [facility] Urine Urine specimen obtained by clean catch procedure / Unknown Non-blood Collection / Unknown 06/23/2023 11:16 AM EST 06/23/2023 11:19 AM EST Izabel Doherty MD LAB URINE OR DERABLES LABORATORY [address] [address] * PT INR (06/23/2023 11:07 AM EST) Prothrombin Time 14.6 11.6 - 15.2 seconds 06/23/2023 12:06 PM EST [facility] INR 1.1 0.8 - 1.2 06/23/2023 12:06 PM EST [facility] Blood Venous blood specimen / Unknown Venipuncture / Unknown 06/23/2023 11:07 AM EST 06/23/2023 11:10 AM EST Narrative LAB[facility]ATORY [facility] - 06/23/2023 12:06 PM EST Warfarin Therapy INR: 2.0-3.0 conventional anticoagulation INR: 2.5-3.5 high intensity anticoagulation Izabel Doherty MD LAB BLOOD OR DERABLES LABORATORY [address] [address] * RESPIRATORY PATHOGEN PANEL, PCR (06/23/2023 10:43 AM EST) Adenovirus by PCR Negative Negative 023 11:38 AM EST [facility] Coronavirus 229E by PCR Negative Negative 06/23/2023 11:38 AM EST [facility] Coronavirus HKU1 by PCR Negative Negative 06/23/2023 11:38 AM EST [facility] Coronavirus NL63 by PCR Negative Negative 06/23/2023 11:38 AM EST [facility] Coronavirus OC43 by PCR Negative Negative 06/23/2023 11:38 AM EST [facility] Coronavirus SARS-CoV-2 by PCR Negative Negative 06/23/2023 11:38 AM EST [facility] Human Metapneumovirus by PCR Negative Negative 06/23/2023 11:38 AM EST [facility] Rhinovirus/Enterovi alfredo by PCR Negative Negative 06/23/2023 11:38 AM EST [facility] Influenza A Virus by PCR Negative Negative 06/23/2023 11:38 AM EST [facility] Influenza B Virus by PCR Negative Negative 06/23/2023 11:38 AM EST [facility] Parainfluenza Virus 1 by PCR Negative Negative 06/23/2023 11:38 AM EST [facility] Parainfluenza Virus 2 by PCR Negative Negative 06/23/2023 11:38 AM EST [facility] Parainfluenza Virus 3 by PCR Negative Negative 06/23/2023 11:38 AM EST [facility] Parainfluenza Virus 4 by PCR Negative Negative 06/23/2023 11:38 AM EST [facility] Respiratory Syncytial Virus by PCR Negative Negative 06/23/2023 11:38 AM EST [facility] Bordetella pertussis by PCR Negative Negative 06/23/2023 11:38 AM EST [facility] Chlamydia pneumoniae by PCR Negative Negative 06/23/2023 11:38 AM EST [facility] Mycoplasma pneumoniae by PCR Negative Negative 06/23/2023 11:38 AM EST [facility] Bordetella parapertussis by PCR Negative Negative 06/23/2023 11:38 AM EST [facility] Comment: The primers that detect Rhinovirus may cross react with some Enterorviruses. The validation of bronchial specimens, tracheal aspirates, and throats for this assay was developed and performance characteristics determined by [facility]. The validation of alternate specimen types has not been cleared or approved by the U.S. Food and Drug Administration (FDA). It has been determined that such clearance or approval is not necessary. Upper Respiratory Mid-turbinate nasal swab / Unknown Non-blood Collection / Unknown 06/23/2023 10:43 AM EST 06/23/2023 10:47 AM EST Izabel Doherty MD LAB MICRO - GENERAL ORDERABLES LABORATORY [address] [address] * (ABNORMAL) PHOSPHORUS (06/23/2023 10:42 AM EST) Phosphorus 2.1(L) 2.5 - 4.8 mg/dL 06/23/2023 1:31 PM EST [facility] Blood Venous blood specimen / Unknown Venipuncture / Unknown 06/23/2023 10:42 AM EST 06/23/2023 10:47 AM EST Margarito Biggs MD LAB BLOOD ORDERABLE S LABORATORY [facility] [address] [place] [address] * (ABNORMAL) DIFFERENTIAL, AUTOMATED (06/23/2023 10:42 AM EST) WBC 7.82 4.00 - 10.80 K/uL 06/23/2023 10:50 AM EST [facility] Neutrophils % 83.1(H) 40.0 - 75.0 % 06/23/2023 10:50 AM EST [facility] Lymphocytes % 7.0(L) 18.0 - 42.0 % 06/23/2023 10:50 AM EST [facility] Monocytes % 9.0 1.0 - 11.0 % 06/23/2023 10:50 AM EST [facility] Eosinophils % 0.1 0.0 - 6.0 % 06/23/2023 10:50 AM EST [facility] Basophils % 0.3 0.0 - 2.0 % 06/23/2023 10:50 AM EST [facility] Immature Granulocytes % 0.5 0.0 - 2.0 % 06/23/2023 10:50 AM EST [facility] Absolute Neutrophils 6.50 1.80 - 7.70 K/uL 06/23/2023 10:50 AM EST [facility] Absolute Lymphocytes 0.55(L) 1.00 - 4.80 K/ul 06/23/2023 10:50 AM EST [facility] Absolute Monocytes 0.70 0.00 - 1.10 K/uL 06/23/2023 10:50 AM EST [facility] Absolute Eosinophils 0.01 0.00 - 0.70 K/uL 06/23/2023 10:50 AM EST LAB[facility] Absolute Basophils 0.02 0.00 - 0.20 K/uL 06/23/2023 10:50 AM EST [facility] Absolute Immature Granulocytes 0.04 0.00 - 0.20 K/uL 06/23/2023 10:50 AM EST [facility] Blood Venous blood specimen / Unknown Venipuncture / Unknown 06/23/2023 10:42 AM EST 06/23/2023 10:47 AM EST Izabel Doherty MD LAB BLOOD OR DERABLES LAB[facility]AT[facility] [address] [place] [address] * CBC (06/23/2023 10:42 AM EST) WBC 7.82 4.00 - 10.80 K/uL 06/23/2023 10:50 AM EST [facility] RBC 4.96 4.50 - 5.25 M/uL 06/23/2023 10:50 AM EST [facility] HGB 15.1 14.0 - 16.8 g/dL 06/23/2023 10:50 AM EST [facility] HCT 43.6 40.0 - 48.4 % 06/23/2023 10:50 AM EST [facility] MCV 87.9 82.0 - 99.5 fL 06/23/2023 10:50 AM EST [facility] MCH 30.4 27.0 - 34.0 pg 06/23/2023 10:50 AM EST [facility] MCHC 34.6 32.0 - 36.0 g/dL 06/23/2023 10:50 AM EST [facility] RDW 13.5 11.5 - 15.5 % 06/23/2023 10:50 AM EST [facility] PLT 165 140 - 400 K/uL 06/23/2023 10:50 AM EST [facility] MPV 10.3 6.6 - 11.1 fL 06/23/2023 10:50 AM EST [facility] nRBCs 0 <=0 /100 WBCs 06/23/2023 10:50 AM EST [facility] Blood Venous blood specimen / Unknown Venipuncture / Unknown 06/23/2023 10:42 AM EST 06/23/2023 10:47 AM EST Izabel Doherty MD LAB BLOOD OR DERABLES Performing Organization Address [facility] de Phone Number LABORATORY [address] [address] * (ABNORMAL) TROPONIN T, HIGH SENSITIVITY (06/23/2023 10:42 AM EST) Troponin T, High Sensitivity 30(H) <=22 ng/L 06/23/2023 11:07 AM EST [facility] Blood Venous blood specimen / Unknown Venipuncture / Unknown 06/23/2023 10:42 AM EST 06/23/2023 10:47 AM EST Izabel Doherty MD LAB BLOOD OR DERABLES Performing Organization Address [facility] Phone Number LABORATORY [address] [address] * (ABNORMAL) PROCALCITONIN (06/23/2023 10:42 AM EST) Procalcitonin >100.00(H) <0.10 ng/mL 06/23/2023 11:31 AM EST LAB[facility] Blood Venous blood specimen / Unknown Venipuncture / Unknown 06/23/2023 10:42 AM EST 06/23/2023 10:47 AM EST Narrative LABORATORY [facility] - 06/23/2023 11:31 AM EST Less than 0.5 ng/mL: Low risk for progression to sepsis. Review patients condition for localized infections. 0.5 to 2.0 ng/mL: Intermediate risk for progresion to sepsis. Review underlying conditions. Recommend repeat PCT after 6 hours has elapsed. Greater than 2.0 ng/mL: high risk for progression to sepsis unless other causes are known. Izabel Doherty MD LAB BLOOD OR DERABLES Performing Organization Address [facility]/State/ZIP Co de Phone Number LABORATORY [address] [address] * MAGNESIUM (06/23/2023 10:42 AM EST) Magnesium 1.6 1.5 - 2.6 mg/dL 06/23/2023 11:31 AM EST [facility] Blood Venous blood specimen / Unknown Venipuncture / Unknown 06/23/2023 10:42 AM EST 06/23/2023 10:47 AM EST Izabel Doherty MD LAB BLOOD OR DERABLES Performing Organization Address City/[facility]/ZIP Co de Phone Number LABORATORY [address] [address] * LACTATE (06/23/2023 10:42 AM EST) Pathologist [facility] Lactate 1.7 0.4 - 2.0 mmol/L 06/23/2023 11:03 AM EST [facility]ORY [facility] Blood Venous blood specimen / Unknown Venipuncture / Unknown 06/23/2023 10:42 AM EST 06/23/2023 10:47 AM EST Izabel Doherty MD LAB BLOOD OR DERABLES LABORATORY [address] [address] * LIPASE (06/23/2023 10:42 AM EST) Pathologist [facility] Lipase 39 13 - 60 U/L 06/23/2023 11:31 AM EST [facility] Blood Venous blood specimen / Unknown Venipuncture / Unknown 06/23/2023 10:42 AM EST 06/23/2023 10:47 AM EST Izabel Doherty MD LAB BLOOD OR DERABLES LABORATORY [address] [address] * (ABNORMAL) COMPREHENSIVE METABOLIC PANEL (06/23/2023 10:42 AM EST) BUN 10 6 - 20 mg/dL 06/23/2023 11:31 AM EST [facility] Creatinine 0.7 0.6 - 1.2 mg/dL 06/23/2023 11:31 AM EST [facility] Estimated Glomerular Filtration Rate 88 >=60 mL/min 06/23/2023 11:31 AM EST [facility] Comment:eGFR is calculated b ased on the CKD-EPI 2020 equation Sodium 140 135 - 146 mmol/L 06/23/2023 11:31 AM EST [facility] Potassium 2.9(L) 3.5 - 5.1 mmol/L 06/23/2023 11:31 AM EST [facility] Chloride 99 98 - 107 mmol/L 06/23/2023 11:31 AM EST [facility] CO2 25 22 - 32 mmol/L 06/23/2023 11:31 AM EST [facility] Anion Gap 16(H) 7 - 15 mmol/L 06/23/2023 11:31 AM EST [facility] Glucose 120 70 - 120 mg/dL 06/23/2023 11:31 AM EST [facility] Albumin 3.8 3.8 - 5.0 g/dL 06/23/2023 11:31 AM EST [facility] AST 62(H) 10 - 50 U/L 06/23/2023 11:31 AM EST [facility] Alkaline Phosphatase 192(H) 35 - 130 U/L 06/23/2023 11:31 AM EST [facility] Bilirubin, Total 1.0 <=1.2 mg/dL 06/23/2023 11:31 AM EST [facility] Calcium 8.8 8.4 - 10.2 mg/dL 06/23/2023 11:31 AM EST [facility] Protein 6.7 6.0 - 8.3 g/dL 06/23/2023 11:31 AM EST [facility] ALT 35 10 - 50 U/L 06/23/2023 11:31 AM EST [facility] Blood Venous blood specimen / Unknown Venipuncture / Unknown 06/23/2023 10:42 AM EST 06/23/2023 10:47 AM EST Izabel Doherty MD LAB BLOOD OR DERABLES LABORATORY [address] [address] * EKG (06/23/2023 10:26 AM EST) 06/23/2023 10:2 6 AM EST Narrative Procedure Note Rupal Horne, DO - 06/23/2023 10:26 AM EST REASON FOR STUDY: CHEST PAIN CONCLUSIONS: Normal sinus rhythm Left anterior fascicular block Left ventricular hypertrophy with secondary QRS widening Prolonged QT interval or tu fusion, consider myocardial disease,electrolyte imbalance, or drug effects Abnormal ECG When compared with ECG of 10-JUN-2023 11:29, No significant change was found Ventricular Rate: 76 Atrial Rate: 76 FL Interval: 194 QRS Duration: 118 QT/QTc: 428/481 ms P-R-T [place]: 55 : -55 : 6 degrees Izabel Doherty MD EKG Performing Organization Address [facility] Co de Phone Number [facility] documented in this encounter Visit Diagnoses Diagnosis Intractable nausea and vomiting- Primary Persistent vomiting Chest pain Chest pain, unspecified Nausea and vomiting, unspecified vomiting type Generalized abdominal pain Abdominal pain, generalized Elevated procalcitonin Vomiting Vomiting alone Hypokalemia Hypopotassemia Generalized weakness Other malaise and fatigue Prostate cancer metastatic to bone (HCC) Type 2 diabetes mellitus with hemoglobin A1c goal of less than 8.0% (HCC) Chronic diastolic heart failure (HCC) Chronic diastolic heart failure COPD, group C, by GOLD 2017 classification (HCC) DNR (do not resuscitate) Do not resuscitate status Dyslipidemia, goal LDL below 70 Other and unspecified hyperlipidemia Hypokalemia Hypopotassemia Metastasis to liver (HCC) 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, 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 Anxiety disorder in conditions classified elsewhere Palliative care encounter Encounter for palliative care Goals of care, counseling/discussion Other specified counseling documented in this encounter Administered Medications Inactive Administered Medications - up to 3 most recent administrations Medication Order MAR Action Action Date Dose Rate Site amLODIPine (Norvasc) tab 5 mg 5 mg, Oral, Daily(AM), First dose on 06/24/23 at 0900, Until Discontinued, Hold for SBP < 110 Given 06/26/2023 9:20 AM EST 5 mg Given 06/25/2023 8:19 AM EST 5 mg Given 06/24/2023 8:44 AM EST 5 mg aspirin enteric coated tab 81 mg 81 mg, Oral, Daily(AM), First dose on 06/24/23 at 0900, Until Discontinued, This med should NOT be Crushed or Chewed Given 06/26/2023 9:20 AM EST 81 mg Given 06/25/2023 8:19 AM EST 81 mg Given 06/24/2023 8:44 AM EST 81 mg Atenolol (Tenormin) tab 25 mg 25 mg, Oral, HS, First dose on Mon06/23/23 at 2200, Until Discontinued, Hold for HR less than 60 or SBP below 100 and notify service if dose is held Given 06/25/2023 10:02 PM EST 25 mg Given 06/24/2023 9:37 PM EST 25 mg Given 06/23/2023 11:09 PM EST 25 mg Atenolol (Tenormin) tab 50 mg 50 mg, Oral, Daily(AM), First dose on 06/24/23 at 0900, Until Discontinued, Hold for HR less than 60 or SBP below 100 and notify service if dose is held Given 06/26/2023 9:20 AM EST 50 mg Given 06/25/2023 8:19 AM EST 50 mg Given 06/24/2023 8:44 AM EST 50 mg benazepril (Lotensin) tab 40 mg 40 mg, Oral, Daily(AM), First dose on 06/24/23 at 0900, Until Discontinued, Hold for SBP < 110 Given 06/26/2023 9:20 AM EST 40 mg Given 06/25/2023 8:21 AM EST 40 mg Given 06/24/2023 8:59 AM EST 40 mg cefepime in D5W (Maxipime) ivpb (THREE hour infusion) 1 g 1 g, IV Piggyback, Q6HNOW, 20 doses, First dose on Mon06/23/23 at 1645, Last dose on Mon06/28/23 at 1045, THREE HOUR INFUSION New Bag 06/26/2023 5:24 AM EST 1 g 16.67 mL /hr New Bag 06/25/2023 10:11 PM EST 1 g 16.67 mL/hr New Bag 06/25/2023 5:01 PM EST 1 g 16.67 mL/hr cefepime in dextrose premix ivpb 2 g 2 g, IV Piggyback, ONCE, 1 dose, On Mon06/23/23 at 1215, Administer over 30 Minutes New Bag 06/23/2023 12:27 PM EST 2 g 100 mL/hr dexAMETHasone (Decadron) tab 4 mg 4 mg, Oral, BID (.AM/PM), First dose on Mon06/23/23 at 2100, Until Discontinued Given 06/26/2023 9:20 AM EST 4 mg Given 06/25/2023 10:01 PM EST 4 mg Given 06/25/2023 8:19 AM EST 4 mg dextrose 50 % inj 25 mL 25 mL, IV Push, PRN Hypoglycemia, Other, For blood glucose 54 - 69 mg/dL or 70 - 100 mg/dL with symptoms AND patient is unresponsive, NPO, OR unable to swallow, Starting on Mon06/23/23 at 1441, Until Mon06/26/23 at 1703, Administer IV. Recheck blood glucose after 15 minutes. Notify provider. dextrose 50 % inj 50 mL 50 mL, IV Push, PRN Hypoglycemia, Other, For blood glucose below 54 mg/dL AND patient unresponsive, NPO, OR unable to swallow, Starting on Mon06/23/23 at 1441, Until Mon06/26/23 at 1703, Administer IV. Recheck blood glucose in 15 minutes. Notify provider. diphenhydrAMINE (Benadryl) inj 25 mg 25 mg, Intravenous, ONCE, On Mon06/23/23 at 1215, For 1 dose Given 06/23/2023 11:49 AM EST 25 mg doxazosin (Cardura) tab 8 mg 8 mg, Oral, HS, First dose on Mon06/24/23 at 2200, Until Discontinued Given 06/25/2023 10:02 PM EST 8 mg Given 06/24/2023 9:37 PM EST 8 mg Enoxaparin (Lovenox) inj 40 mg 40 mg, Subcutaneous, Daily(AM), First dose on 06/24/23 at 0900, Until Discontinued, If patient is on warfarin, inform provider if daily INR value is 2 or greater! Given 06/26/2023 9:21 AM EST 40 mg Abdom en Left Lower Given 06/25/2023 8:18 AM EST 40 mg Ab domen Right Lower Given 06/24/2023 8:50 AM EST 40 mg Ab domen Left Lower Finasteride (Proscar) tab 5 mg 5 mg, Oral, Daily(AM), First dose on 06/24/23 at 0900, Until Discontinued Given 06/26/2023 9:20 AM EST 5 mg Given 06/25/2023 8:19 AM EST 5 mg Given 06/24/2023 8:44 AM EST 5 mg fluticasone furoate-vilanterol (BREO ellipta) 100-25 MCG/ACT inhaler 1 Puff 1 Puff, Inhalation, RESPDAILY, First dose on 06/24/23 at 0700, Until Discontinued Given 06/26/2023 7:33 AM EST 1 P uff Given 06/25/2023 8:08 AM EST 1 Puff Given 06/24/2023 7:29 AM EST 1 Puff Fosaprepitant Dimeglumine (Emend) 150 mg in NSS 250 mL Infusion 150 mg, IV Piggyback, ONCE, 1 dose, On 06/24/23 at 1245, Administer over 30 Minutes, Infuse over 30 minutes New Bag 06/24/2023 2:07 PM EST 150 mg 550 mL/hr Furosemide (Lasix) tab 20 mg 20 mg, Oral, Daily(AM), First dose on 06/24/23 at 0900, Until Discontinued, Hold for K < 3.5 and notify provider Given 06/26/2023 9:21 AM EST 20 mg Given 06/25/2023 8:19 AM EST 20 mg Given 06/24/2023 8:45 AM EST 20 mg Gabapentin (Neurontin) cap 400 mg 400 mg, Oral, QID(AM/NOON/PM/HS), First dose on 06/24/23 at 0600, Until Discontinued Given 06/26/2023 12:38 PM EST 400 mg Given 06/26/2023 5:22 AM EST 400 mg Given 06/25/2023 10:02 PM EST 400 mg gadobutrol (Gadavist) inj 9.5 mL 9.5 mL (rounded from 9.53 mL = 0.1 mL/kg 95.3 kg), Intravenous, ONCE, On Mon06/24/23 at 1200, For 1 dose, Radiology Medication Routing (Non-IR) Given 06/24/2023 11:37 AM EST 9.5 mL glucagon (Glucagen) inj 1 mg 1 mg, Intramuscular, PRN Hypoglycemia, Other, If patient is unresponsive, or NPO and has no IV access, Starting on Mon06/23/23 at 1441, Until Mon06/26/23 at 1703, NPO and no IV access with either 1) blood glucose less than 100 mg/dL and symptomatic OR 2) blood glucose less than 70 mg/dL and asymptomatic Glucose (Glutose 15) 40 % gel 15 g of glucose 15 g of glucose, Oral, PRN Hypoglycemia (low sugar), Other, For blood glucose 54 - 69 mg/dL or 70 - 100 mg/dL with symptoms AND patient alert WITH difficulty chewing/swallowing, Starting on Mon06/23/23 at 1441, Until Mon06/26/23 at 1703, Administer gel. Recheck blood glucose after 15 minutes. Notify provider. 37.5 gram tube = 15 grams glucose = 1 each Glucose (Glutose 15) 40 % gel 30 g of glucose 30 g of glucose, Oral, PRN Hypoglycemia (low sugar), Other, For blood glucose below 54 mg/dL AND patient alert WITH difficulty chewing/swallowing, Starting on Mon06/23/23 at 1441, Until Mon06/26/23 at 1703, Administer gel. Recheck blood glucose after 15 minutes. Notify provider. 37.5 gram tube = 15 grams glucose = 1 each glucose chew tab 16 g 16 g, Oral, PRN Hypoglycemia, Other, For blood glucose 54 - 69 mg/dL or 70 - 100 mg/dL with symptoms and patient alert without difficulty chewing/swallowing., Starting on Mon06/23/23 at 1441, Until Mon06/26/23 at 1703 house antacid (Mi-Acid II) oral susp 15 mL 15 mL, Oral, Q4H PRN Indigestion, Starting on Mon06/23/23 at 1313, Until Mon06/26/23 at 1703, SHAKE WELL insulin aspart (NovoLOG) inj Subcutaneous, W/MEALS AND HS, First dose on Mon06/23/23 at 1700, Until Discontinued, LOW DOSE, Insulin sensitivity factor (ISF) = 50 (Elderly insulin sensitive patient) Serum blood sugar less than 70 mg/dl or symptomatic (obtain lab blood sugar and notify provider); 151 - 200 mg/dl (1 units); 201 - 250 mg/dl (2 units); 251 - 300 mg/dl (3 units); 301 - 350 mg/dl (4 units); 351 - 400 mg/dl (5 units); greater than 400 mg/dl (call provider) Correctional insulin may be given if the patient is NPO. Given 06/25/2023 10:01 PM EST 1 Units Arm Left Upper Given 06/25/2023 4:56 PM EST 1 Units Ar m Right Upper Given 06/25/2023 12:07 PM EST 1 Units A rm Left Upper Ioversol (Optiray 320) inj 100 mL 100 mL, Intravenous, ONCE, On Mon06/23/23 at 1200, For 1 dose, Radiology Medication Routing (Non-IR) Given 06/23/2023 11:28 AM EST 100 mL isolyte-S pH 7.4 infusion Intravenous, at 50 mL/hr, Plasma-LYTE 148, isolyte-S, and isolyte-S pH 7.4 are considered equivalent - including for MAR barcode scanning., CONTINUOUS, Starting on Mon06/23/23 at 1345, Until 06/24/23 at 0444 Rate Verify 06/23/2023 6:34 PM EST 50 mL/hr Rate Verify 06/23/2023 6:18 PM EST 50 mL/hr New Bag 06/23/2023 3:12 PM EST 50 mL/hr ketorolac (Toradol) 30 MG/ML inj 15 mg 15 mg, IV Push, Q8H PRN Pain, Moderate, Starting on Mon06/23/23 at 1311, Until 06/25/23 at 1310, For 2 days Given 06/24/2023 10:34 AM EST 15 mg Lidocaine (Aspercreme) 4 % patch 1 Patch 1 Patch, Transdermal, Daily(AM), First dose on 06/24/23 at 0900, Until Discontinued, Apply patch for 12 hours then remove for 12 hours! Remove any Lidocaine patches the patient may currently be wearing prior to applying the new patch Patch Applied 06/26/2023 9:19 AM EST 1 Patch Back Middle Patch Applied 06/25/2023 8:20 AM EST 1 Patch Back Right Patch Applied 06/24/2023 8:56 AM EST 1 Patch Back Right LORazepam (Ativan) tab 1 mg 1 mg, Sublingual, Q8H PRN Anxiety, or Nausea, Starting on Mon06/23/23 at 1355, Until Mon06/26/23 at 1703 Given 06/24/2023 10:23 AM EST 1 mg magnesium sulfate 1 g in d5w 100mL LOCKED DOSE 1 g, IV Piggyback, ONCE, 1 dose, On Mon06/23/23 at 1345, Administer over 60 Minutes New Bag 06/23/2023 3:20 PM EST 1 g 100 mL/hr melatonin tab 3 mg 3 mg, Oral, HS PRN Insomnia, Starting on Mon06/23/23 at 1313, Until Mon06/26/23 at 1703 Morphine Sulfate (PF) inj 3 mg 3 mg, IV Push, Q3H PRN Pain, Severe, Starting on Mon06/23/23 at 1311, Until Mon06/26/23 at 1703 Given 06/26/2023 9:18 AM EST 3 mg Given 06/23/2023 3:52 PM EST 3 mg NSS 0.9% 2,000 mL bolus infusion Intravenous, at 2,000 mL/hr Administer over 60 Minutes, Wide open, This infusion may be completed in less than 1 hour, since it will be a wide open rate, ONCE, 1 dose, On Mon06/23/23 at 1100 New Bag 06/23/2023 10:48 AM EST 2,000 mL 2000 mL/hr Octreotide Acetate (SandoSTATIN) 500 MCG/ML inj 100 mcg 100 mcg, IV Push, BID (.AM/PM), First dose on Mon06/23/23 at 2100, Until Discontinued, NOTE CONCENTRATION!!! Given 06/26/2023 9:19 AM EST 100 mcg Given 06/25/2023 10:01 PM EST 100 mcg Given 06/25/2023 8:33 AM EST 100 mcg OLANZapine ODT (zyPREXA zyDIS) tab 5 mg 5 mg, On Tongue, BID (.AM/PM), First dose on Mon06/23/23 at 2100, Until Discontinued, Orally disintegrating tabs, place on top of tongue Given 06/26/2023 9:24 AM EST 5 mg Given 06/25/2023 10:02 PM EST 5 mg Given 06/25/2023 8:22 AM EST 5 mg ondansetron (Zofran) inj 4 mg 4 mg, IV Push, ONCE, On Mon06/23/23 at 1100, For 1 dose Given 06/23/2023 10:52 AM EST 4 mg ondansetron (Zofran) inj 4 mg 4 mg, IV Push, Q6H PRN Nausea, Vomiting, Starting on Mon06/23/23 at 1305, Until Mon06/26/23 at 1703 Given 06/24/2023 4:37 AM EST 4 mg Given 06/23/2023 10:18 PM EST 4 mg Given 06/23/2023 5:51 PM EST 4 mg Pantoprazole (Protonix) inj 40 mg 40 mg, IV Push, BEFORE BREAKFAST, First dose on Mon06/23/23 at 1315, Until Discontinued, IV push instructions: Flush I.V. Line before and after administration. In-line filter not required. 2-minute infusion: The volume of reconstituted solution (4mg/ml) to be injected may be administered intravenously over at least 2 minutes. ( Dilute each vial with 10 ml of 0.9% saline PF) Given 06/26/2023 9:18 AM EST 40 mg Given 06/25/2023 8:14 AM EST 40 mg Given 06/24/2023 8:50 AM EST 40 mg Polyethylene Glycol 3350 (Miralax) oral powder 17 g 17 g, Oral, Daily(AM), First dose on Mon06/24/23 at 0900, Until Discontinued, Mix in 8 oz of water, juice, soda, coffee, or tea. Given 06/24/2023 8:40 AM EST 17 g Polyethylene Glycol 3350 (Miralax) oral powder 17 g 17 g (1 Packet), Oral, DAILY PRN Constipation, Starting on Mon06/23/23 at 1313, Until Mon06/26/23 at 1703, Mix in 8 oz of water, juice, soda, coffee, or tea. potassium chloride 10 mEq in 100 mL ivpb LOCKED DOSE 10 mEq, Peripheral IV, Q1H, 2 doses, First dose on Mon06/23/23 at 1400, Last dose on Mon06/23/23 at 1500, Administer over 60 Minutes, Standard infusion duration is 60 minutes. New Bag 06/23/2023 4:05 PM EST 10 mEq 100 mL/hr potassium chloride ER tab 30 mEq 30 mEq, Oral, Daily(AM), First dose on 06/24/23 at 0900, Until Discontinued Given 06/26/2023 9:20 AM EST 30 mEq Given 06/25/2023 8:19 AM EST 30 mEq Given 06/24/2023 8:44 AM EST 30 mEq potassium chloride ER tab 40 mEq 40 mEq, Oral, ONCE, On Mon06/23/23 at 1715, For 1 dose, This med should NOT be Crushed or Chewed Given 06/23/2023 5:44 PM EST 40 mEq prochlorperazine (Compazine) inj 10 mg 10 mg, IV Push, Q6H PRN If N/V not relieved by ondansetron, Starting on Mon06/23/23 at 1305, Until Mon06/26/23 at 1703 Given 06/24/2023 7:56 AM EST 10 mg prochlorperazine (Compazine) inj 5 mg 5 mg, Intravenous, ONCE, On Mon06/23/23 at 1215, For 1 dose Given 06/23/2023 11:52 AM EST 5 mg promethazine (Phenergan) supp 12.5 mg 12.5 mg, Rectal, Q4H PRN Nausea, Vomiting, Starting on Mon06/23/23 at 1324, Until Mon06/26/23 at 1703, Refrigerate !! sodium chloride 0.9 % flush/inj 10 mL 10 mL, IV Push, ONCE, On 06/24/23 at 1200, For 1 dose, Do not flush if lock, PICC, or central line not in place; IV infusing or unable to flush., Radiology Medication Routing (Non-IR) Given 06/24/2023 12:00 PM EST 10 mL sodium chloride 0.9 % flush/inj 3 mL 3 mL, IV Push, PRN Other, Line Patency, Starting on Mon06/23/23 at 1309, Until Mon06/26/23 at 1703, Do not flush if lock, PICC, or central line not in place, IV infusing or unable to flush Spironolactone (Aldactone) tab 12.5 mg 12.5 mg, Oral, Daily(AM), First dose on 06/24/23 at 0900, Until Discontinued Given 06/26/2023 9:20 AM EST 12.5 mg Given 06/25/2023 8:22 AM EST 12.5 mg Given 06/24/2023 8:59 AM EST 12.5 mg documented in this encounter Active and Recently Administered Medications Times are shown in EST. Scheduled Medication Order 06/24/2023 06/25/2023 06/26/2023 amLODIPine (Norvasc) tab 5 mg 5 mg, Oral, Daily(AM), First dose on 06/24/23 at 0900, Until Discontinued, Hold for SBP < 110 0844 (Given - Provider: Akosua Brooks RN) 0819 (Given - Provider: Akosua Brooks RN) 0920 (Given - Provider: Kate Lomax, VEDA) aspirin enteric coated tab 81 mg 81 mg, Oral, Daily(AM), First dose on 06/24/23 at 0900, Until Discontinued, This med should NOT be Crushed or Chewed 0844 (Given - Provider: Akosua Brooks RN) 0819 (Given - Provider: Akosua Brooks RN) 0920 (Given - Provider: Kate Lomax, VEDA) Atenolol (Tenormin) tab 25 mg 25 mg, Oral, HS, First dose on Mon06/23/23 at 2200, Until Discontinued, Hold for HR less than 60 or SBP below 100 and notify service if dose is held 2136 (Given - Provider: Rhona Barron, VEDA) 2201 (Given - Provider: Rhona Barron, RN) Atenolol (Tenormin) tab 50 mg 50 mg, Oral, Daily(AM), First dose on 06/24/23 at 0900, Until Discontinued, Hold for HR less than 60 or SBP below 100 and notify service if dose is held 0844 (Given - Provider: Akosua Brooks RN) 0819 (Given - Provider: Akosua Brooks RN) 0920 (Given - Provider: Kate Lomax RN) benazepril (Lotensin) tab 40 mg 40 mg, Oral, Daily(AM), First dose on Mon06/24/23 at 0900, Until Discontinued, Hold for SBP < 110 0859 (Given - Provider: Akosua Brooks RN) 0821 (Given - Provider: Akosua Brooks RN) 09 (Given - Provider: Kate Lomax, VEDA) cefepime in D5W (Maxipime) ivpb (THREE hour infusion) 1 g 1 g, IV Piggyback, Q6HNOW, 20 doses, First dose on Mon06/23/23 at 1645, Last dose on Mon06/28/23 at 1045, THREE HOUR INFUSION 0516 (New Bag - Provider: Rhona Barron RN)1244 (New Bag - Provider: Akosua Brooks RN)1745 (New Bag - Provider: Felicita Carrasco LPN)2348 (New Bag - Provider: Rhona Barron RN) 0520 (New Bag - Provider: Rhona Barron RN)1216 (New Bag - Provider: Akosua Brooks RN)1701 (New Bag - Provider: Akosua Brooks RN)2211 (New Bag - Provider: Rhona Barron RN) 0524 (New Bag - Provider: Maria T Ortega LPN)1045 (Not Given - Provider: Kate Lomax RN - Reason: Other- Please add reason in Comments - Comment: pt dc)1703 (Due: Stopped) dexAMETHasone (Decadron) tab 4 mg 4 mg, Oral, BID (.AM/PM), First dose on Mon06/23/23 at 2100, Until Discontinued 0845 (Given - Provider: Akosua Brooks RN)213 (Given - Provider: Rhona Barron RN) 08 (Given - Provider: Akosua Brooks RN)2200 (Given - Provider: Rhona Barron RN) 09 (Given - Provider: Kate Lomax, VEDA) doxazosin (Cardura) tab 8 mg 8 mg, Oral, HS, First dose on Mon06/24/23 at 2200, Until Discontinued 2136 (Given - Provider: Rhona Barron RN) 220 (Given - Provider: Rhona Barron, VEDA) Enoxaparin (Lovenox) inj 40 mg 40 mg, Subcutaneous, Daily(AM), First dose on 06/24/23 at 0900, Until Discontinued, If patient is on warfarin, inform provider if daily INR value is 2 or greater! 0850 (Given - Provider: Akosua Brooks RN) 0818 (Given - Provider: Akosua Brooks, VEDA) 09 (Given - Provider: Kate Lomax, RN) Finasteride (Proscar) tab 5 mg 5 mg, Oral, Daily(AM), First dose on 06/24/23 at 0900, Until Discontinued 0844 (Given - Provider: Akosua Brooks RN) 08 (Given - Provider: Akosua Brooks RN) 09 (Given - Provider: Kate Lomax, VEDA) fluticasone furoate-vilanterol (BREO ellipta) 100-25 MCG/ACT inhaler 1 Puff 1 Puff, Inhalation, RESPDAILY, First dose on 06/24/23 at 0700, Until Discontinued 07 (Given - Provider: Vahid Garcia, MANAGER ER) 0808 (Given - Provider: Roxana Mcghee, ADELE) 0733 (Given - Provider: Xenia Butler, ADELE) Fosaprepitant Dimeglumine (Emend) 150 mg in NSS 250 mL Infusion (COMPLETED) 150 mg, IV Piggyback, ONCE, 1 dose, On 06/24/23 at 1245, Administer over 30 Minutes, Infuse over 30 minutes 1407 (New Bag - Provider: Akosua Brooks RN) Furosemide (Lasix) tab 20 mg 20 mg, Oral, Daily(AM), First dose on 06/24/23 at 0900, Until Discontinued, Hold for K < 3.5 and notify provider 0845 (Given - Provider: Akosua Brooks RN) 08 (Given - Provider: Akosua Brooks RN) 09 (Given - Provider: Kate Lomax, VEDA) Gabapentin (Neurontin) cap 400 mg 400 mg, Oral, QID(AM/NOON/PM/HS), First dose on 06/24/23 at 0600, Until Discontinued 0600 (Not Given - Provider: Rhona Barron RN - Reason: Refused-Notify Provider - Comment: Patient feeling nauseous, is requesting to skip this dose)1247 (Given - Provider: Akosua Brooks RN)1725 (Given - Provider: Felicita Carrasco LPN)2137 (Given - Provider: Rhona Barron RN) 0517 (Given - Provider: Rhona Barron RN)1209 (Given - Provider: Akosua Brooks RN)1655 (Given - Provider: Akosua Brooks RN)2202 (Given - Provider: Rhona Barron RN) 0522 (Given - Provider: Maria T Ortega LPN)1238 (Given - Provider: Kate Lomax RN) gadobutrol (Gadavist) inj 9.5 mL (COMPLETED) 9.5 mL (rounded from 9.53 mL = 0.1 mL/kg 95.3 kg), Intravenous, ONCE, On Mon06/24/23 at 1200, For 1 dose, Radiology Medication Routing (Non-IR) 1137 (Given - Provider: LUCAS Simon - Comment: gilbert [email or web address] 08/21 11:33am) insulin aspart (NovoLOG) inj Subcutaneous, W/MEALS AND HS, First dose on Mon06/23/23 at 1700, Until Discontinued, LOW DOSE, Insulin sensitivity factor (ISF) = 50 (Elderly insulin sensitive patient) Serum blood sugar less than 70 mg/dl or symptomatic (obtain lab blood sugar and notify provider); 151 - 200 mg/dl (1 units); 201 - 250 mg/dl (2 units); 251 - 300 mg/dl (3 units); 301 - 350 mg/dl (4 units); 351 - 400 mg/dl (5 units); greater than 400 mg/dl (call provider) Correctional insulin may be given if the patient is NPO. 0800 (No Insulin - Provider: Akosua Brooks RN - Reason: Parameter(s) Not Met)1200 (No Insulin - Provider: Akosua Brooks RN - Reason: Parameter(s) Not Met)1725 (Given - Provider: Felicita Carrasco LPN)2200 (No Insulin - Provider: Rhona Barron RN - Reason: Parameter(s) Not Met) 0800 (No Insulin - Provider: Akosua Brooks RN - Reason: Parameter(s) Not Met)1207 (Given - Provider: Akosua Brooks RN)1656 (Given - Provider: Akosua Brooks RN)220 (Given - Provider: Rhona Barron RN) 0800 (No Insulin - Provider: Kate Lomax RN - Reason: Parameter(s) Not Met)1200 (Not Given - Provider: Kate Lomax RN - Reason: Refused-Notify Provider) Lidocaine (Aspercreme) 4 % patch 1 Patch 1 Patch, Transdermal, Daily(AM), First dose on Mon06/24/23 at 0900, Until Discontinued, Apply patch for 12 hours then remove for 12 hours! Remove any Lidocaine patches the patient may currently be wearing prior to applying the new patch 0856 (Patch Applied - Provider: Akosua Brooks RN)2055 (Patch Removed - Provider: Rhona Barron RN) 08 (Patch Applied - Provider: Akosua Brooks RN)2019 (Patch Removed - Provider: Rhona Barron RN) 0919 (Patch Applied - Provider: Kate Lomax RN)1300 (Due: Patch Removed - Provider: Discharge, Physician - Comment: Time automatically adjusted from order being discontinued) Octreotide Acetate (SandoSTATIN) 500 MCG/ML inj 100 mcg 100 mcg, IV Push, BID (.AM/PM), First dose on Mon06/23/23 at 2100, Until Discontinued, NOTE CONCENTRATION!!! 0904 (Given - Provider: Akosua Brooks RN)213 (Given - Provider: Rhona Barron RN) 0833 (Given - Provider: Akosua Brooks RN)220 (Given - Provider: Rhona Barron, VEDA) 0919 (Given - Provider: Kate Lomax RN) OLANZapine ODT (zyPREXA zyDIS) tab 5 mg 5 mg, On Tongue, BID (.AM/PM), First dose on Mon06/23/23 at 2100, Until Discontinued, Orally disintegrating tabs, place on top of tongue 0900 (Given - Provider: Akosua Brooks RN)2136 (Given - Provider: Rhona Barron RN) 08 (Given - Provider: Akosua Brooks RN)220 (Given - Provider: Rhona Barron RN) 0924 (Given - Provider: Kate Lomax, VEDA) Pantoprazole (Protonix) inj 40 mg 40 mg, IV Push, BEFORE BREAKFAST, First dose on Mon06/23/23 at 1315, Until Discontinued, IV push instructions: Flush I.V. Line before and after administration. In-line filter not required. 2-minute infusion: The volume of reconstituted solution (4mg/ml) to be injected may be administered intravenously over at least 2 minutes. ( Dilute each vial with 10 ml of 0.9% saline PF) 0850 (Given - Provider: Akosua Brooks RN) 0814 (Given - Provider: Akosua Brooks RN) 0918 (Given - Provider: Kate Lomax, VEDA) Polyethylene Glycol 3350 (Miralax) oral powder 17 g 17 g, Oral, Daily(AM), First dose on 06/24/23 at 0900, Until Discontinued, Mix in 8 oz of water, juice, soda, coffee, or tea. 0840 (Given - Provider: Akosua Brooks RN) 0900 (Not Given - Provider: Akosua Brooks RN - Reason: Parameter(s) Not Met - Comment: Bowels moved) 0900 (Not Given - Provider: Kate Lomax RN - Reason: Refused-Notify Provider) potassium chloride ER tab 30 mEq 30 mEq, Oral, Daily(AM), First dose on 06/24/23 at 0900, Until Discontinued 0844 (Given - Provider: Akosua Brooks RN) 0819 (Given - Provider: Akosua Brooks RN) 0920 (Given - Provider: Kate Lomax, VEDA) sodium chloride 0.9 % flush/inj 10 mL (COMPLETED) 10 mL, IV Push, ONCE, On 06/24/23 at 1200, For 1 dose, Do not flush if lock, PICC, or central line not in place; IV infusing or unable to flush., Radiology Medication Routing (Non-IR) 1200 (Given - Provider: LUCAS Simon - Comment: iv flush start) Spironolactone (Aldactone) tab 12.5 mg 12.5 mg, Oral, Daily(AM), First dose on Mon06/24/23 at 0900, Until Discontinued 0859 (Given - Provider: Akosua Brooks, RN) 08 (Given - Provider: Akosua Brooks, RN) 0920 (Given - Provider: Kate Lomax RN) PRN Medication Order 06/24/2023 06/25/2023 06/26/2023 albuterol-ipratropium (Duoneb) inhalation solution 3 mL 3 mL, Nebulizer, Q4H PRN Dyspnea, Starting on Mon06/23/23 at 1304, Until Mon06/26/23 at 1703, 3 mL = 0.5 mg ipratropium/ 2.5 mg albuterol dextrose 50 % inj 25 mL 25 mL, IV Push, PRN Hypoglycemia, Other, For blood glucose 54 - 69 mg/dL or 70 - 100 mg/dL with symptoms AND patient is unresponsive, NPO, OR unable to swallow, Starting on Mon06/23/23 at 1441, Until Mon06/26/23 at 1703, Administer IV. Recheck blood glucose after 15 minutes. Notify provider. dextrose 50 % inj 50 mL 50 mL, IV Push, PRN Hypoglycemia, Other, For blood glucose below 54 mg/dL AND patient unresponsive, NPO, OR unable to swallow, Starting on Mon06/23/23 at 1441, Until Mon06/26/23 at 1703, Administer IV. Recheck blood glucose in 15 minutes. Notify provider. glucagon (Glucagen) inj 1 mg 1 mg, Intramuscular, PRN Hypoglycemia, Other, If patient is unresponsive, or NPO and has no IV access, Starting on Mon06/23/23 at 1441, Until Mon06/26/23 at 1703, NPO and no IV access with either 1) blood glucose less than 100 mg/dL and symptomatic OR 2) blood glucose less than 70 mg/dL and asymptomatic Glucose (Glutose 15) 40 % gel 15 g of glucose 15 g of glucose, Oral, PRN Hypoglycemia (low sugar), Other, For blood glucose 54 - 69 mg/dL or 70 - 100 mg/dL with symptoms AND patient alert WITH difficulty chewing/swallowing, Starting on Mon06/23/23 at 1441, Until Mon06/26/23 at 1703, Administer gel. Recheck blood glucose after 15 minutes. Notify provider. 37.5 gram tube = 15 grams glucose = 1 each Glucose (Glutose 15) 40 % gel 30 g of glucose 30 g of glucose, Oral, PRN Hypoglycemia (low sugar), Other, For blood glucose below 54 mg/dL AND patient alert WITH difficulty chewing/swallowing, Starting on Mon06/23/23 at 1441, Until Mon06/26/23 at 1703, Administer gel. Recheck blood glucose after 15 minutes. Notify provider. 37.5 gram tube = 15 grams glucose = 1 each glucose chew tab 16 g 16 g, Oral, PRN Hypoglycemia, Other, For blood glucose 54 - 69 mg/dL or 70 - 100 mg/dL with symptoms and patient alert without difficulty chewing/swallowing., Starting on Mon06/23/23 at 1441, Until Mon06/26/23 at 1703 house antacid (Mi-Acid II) oral susp 15 mL 15 mL, Oral, Q4H PRN Indigestion, Starting on Mon06/23/23 at 1313, Until Mon06/26/23 at 1703, SHAKE WELL ketorolac (Toradol) 30 MG/ML inj 15 mg () 15 mg, IV Push, Q8H PRN Pain, Moderate, Starting on Mon06/23/23 at 1311, Until Mon06/25/23 at 1310, For 2 days 1034 (Given - Provider: Akosua Brooks RN) LORazepam (Ativan) tab 1 mg 1 mg, Sublingual, Q8H PRN Anxiety, or Nausea, Starting on Mon06/23/23 at 1355, Until Mon06/26/23 at 1703 1023 (Given - Provider: Akosua Brooks RN) melatonin tab 3 mg 3 mg, Oral, HS PRN Insomnia, Starting on Mon06/23/23 at 1313, Until Mon06/26/23 at 1703 Morphine Sulfate (PF) inj 3 mg 3 mg, IV Push, Q3H PRN Pain, Severe, Starting on Mon06/23/23 at 1311, Until Mon06/26/23 at 1703 0918 (Given - Provid er: Kate Lomax RN) ondansetron (Zofran) inj 4 mg 4 mg, IV Push, Q6H PRN Nausea, Vomiting, Starting on Mon06/23/23 at 1305, Until Mon06/26/23 at 1703 0437 (Given - Provider: Rhona Barron RN) Polyethylene Glycol 3350 (Miralax) oral powder 17 g 17 g (1 Packet), Oral, DAILY PRN Constipation, Starting on Mon06/23/23 at 1313, Until Mon06/26/23 at 1703, Mix in 8 oz of water, juice, soda, coffee, or tea. prochlorperazine (Compazine) inj 10 mg 10 mg, IV Push, Q6H PRN If N/V not relieved by ondansetron, Starting on Mon06/23/23 at 1305, Until Mon06/26/23 at 1703 0756 (Given - Provider: Akosua Brooks RN) promethazine (Phenergan) supp 12.5 mg 12.5 mg, Rectal, Q4H PRN Nausea, Vomiting, Starting on Mon06/23/23 at 1324, Until Mon06/26/23 at 1703, Refrigerate !! senna-docusate (Senokot-S) 1 Tablet 1 Tablet, Oral, DAILY PRN Constipation, Starting on Mon06/23/23 at 1307, Until Mon06/26/23 at 1703 sodium chloride 0.9 % flush/inj 3 mL 3 mL, IV Push, PRN Other, Line Patency, Starting on Mon06/23/23 at 1309, Until Mon06/26/23 at 1703, Do not flush if lock, PICC, or central line not in place, IV infusing or unable to flush documented in this encounter Additional Health Concerns Infection Onset Date Last Indicated Resolved Time Respiratory Rule-Out 06/23/2023 06/23/2023 023 11:38 AM [...] Agen t (per Health Care Power of Slip Maker document) [email or web address] Child First Alternate Health Care Agent (per Health Care Power of Slip Maker document) [email or web address] Needle Tip Maker Relationship Specialty Start Date End Date Angel Snyder DO [address] VANESSA Jaeger [id number] PCP - General Family Medicine 06/14/23 documented as of this encounter
--- OUTSIDE RECORDS SUMMARY | 2023-07-04 20:34 | External Medical Summary | Summary of Care ---
Author Name Unknown Organization [facility] Address [address] [place] [address] Phone [phone] Care Team Providers Care Weather Forecaster Name Role Phone Angel Quinteros DO Primary Care Provider [phone] Encounter Details Date Type Department Care Team (Late st Contact Info) Description 06/27/2023 Population Health External Data Unspecified Department Allergies Active Allergy Reactions Criticality Noted Date [...] 3, contact heart failure managing provider or [facility] at home case picker 1 Each 0 01/30/2019 Active aspirin enteric [...] the morning. 14 Each 0 05/27/2023 Active traMADol HCl 50 MG Oral Tablet (Ultram)Indications: [...] DNR (do not resuscitate) 05/21/2023 Constipation 05/21/2023 [place] (hard of hearing) 05/21/2023 Poor vision 05/21/2023 [...] vein thrombosis) 09/22/2015 PMR (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) 10/18/2012 intermediate current use of systemic steroids 10/18 History of Hodgkin's disease 02/19/2012 Gastroesophageal reflux disease without esophagi tis 10/13/2011 KNEE JOINT REPLACEMENT STATUS, R and L SPINAL STENOSIS Mild L4-5 11/28/2007 Disorder of [...] lower extremities 11/24/2008 09/22/2015 Overview: seen at [facility] ER Anemia 05/13/2008 03/21/2017 Osteoarthritis [...] mRNA, LNP-s, No Pre serve, 2-Dose Series (Davia) 08/30/2020,08/02/2020 Pneumococcal Conjugate Vacc, 13 Valent (Prevnar) [...] 6:53 AM EST Sexual Orientation Straight 06/10/2023 6 :53 AM EST Job Start Date Occupation Industry [...] No 06/23/2023 documented as of this encounter Plan of Treatment Upcoming Encounters Date Type Department Care Team (Fab Contact Info) Description 06/27/2023 12:30 PM EST [facility], [facility] [address] [place] [address] Emeli Toledo, RN [address] [place] [address] 06/29/2023 12:45 PM EST Nurse Only Family Practice 65 [facility] [address] [place] [phone] [place], Nurse Fam Prac [address] [place] [address] 06/29/2023 1:00 PM EST Office Visit Family Practice 65 [facility] [address] [place] [address] Angel Quinteros DO [address] [place] [phone] 07/06/2023 12:40 PM EST Office Visit Podiatry [facility] [address] [place] [address] Felicita Copeland DPM 132 [facility] [place] [address] 07/27/2023 12:40 PM EST Office Visit [facility], [facility] [address] [place] [phone] Trina Plaza, DO 132 [facility] [place] [address] 08/03/2023 1:30 PM EST Office Visit Urology Nora Pugh [address] [place] [address] [place] [address] Ryan Cunningham MD [address] [place] [address] [place] [address] 09/11/2023 2:00 PM EDT Appointment Radiology, [facility] [address] [place] [phone] 09/11/2023 2:30 PM EDT PulmDiagnostic Pulmonary Function Lab [facility] [place] [address] [place] [address] [address], [address]ft [address] [place] [address] 09/11/2023 3:00 PM EDT Office Visit Pulmonary Medicine [facility] [place] [address] [place] [phone] Saul Moscoso MD [address] [place] [address] 10/25/2023 2:40 PM EDT Office Visit Family Practice [facility] 200 [place] [address] Mirza Mcgee III, MD 200 [facility] [address] 05/02/2024 1:00 PM EST Office Visit Sleep Disorders, [facility] [address] [place] [address] Alesha John MD 400 [facility] [place] [address] Health Maintenance Due Date Last Done Comments Zoster Vaccines (1 of 2) 1954 COVID-19 Vaccine (3 - Pfizer risk series) 09/27/2020 08/30/2020, 08/02/2020 Depression Screening 02/03/2024 02/02/2023 O2 ASSESSMENT COMPLETED IN P AST YEAR FOR COPD 06/26/2024 06/26/2023 DXA Scan 11/02/2024 11/02/2021, 02/, 04/11/2017, Additional history exists Diabetic Foot Exam Discontinued 12/08/2020, 0 03/06/2020, 03/04/2019, Additional history exists Diabetic Eye Exam Discontinued 10/11/2021, , 07/14/2021, Additional history exists Albumin/Creatinine Ratio Discontinued 10/26/2022, 02/25 Influenza Vaccine (FLU shot) Completed , 03/31/2022, 03/23/2021, Additional history exists documented as of this encounter Medical Devices Implanted Type Area Talent Analyst Device Identifier Shelf Expiration Date Model / Serial / Lot Femur Nexgn E Right - [id number] Implanted:Qty: 1 on 05/12/2008 at [place] [facility] [place] Right: Knee [employer] 02/24/2018 [id number] -[id number] / / [id number] Femur Nexgn E Left - [id number] Implanted:Qty: 1 on 11/19/2008 at [place] [facility] [place] Left: Knee [employer] [id number] -[id number] / / [id number] Sut Steel 6 M654g - [id number] Implanted:Qty: 6 on 07/11/2011 at [place] [facility] [place] N/A: Chest DO NOT USE 01/09/2016 / / [id number] Akreos Ao Micro Incision Lens [id number] Implanted:Qty: 1 on 11/07/2013 at OR [facility] Right: Eye 06/25/2016 [id number] / [id number] documented as of this encounter Advance Directives [...] Agen t (per Health Care Power of [employer] document) [email or web address] Huma Hernández Adult Child First Alternate Health Care Agent (per Health Care Power of [employer] document) [email or web address] Weather Forecaster Relationship Specialty Start Date End Date Angel Quinteros DO [address] [place] [address] PCP - General Family Medicine 06/14/23 documented as of this encounter
--- OUTSIDE RECORDS SUMMARY | 2023-07-04 20:34 | External Medical Summary | Summary of Care ---
Author Name Unknown Organization [facility] Address [address] [place] [address] Phone [phone] Care Team Providers Care Neck Band Maker Name Role Phone Angel Quinteros DO Primary Care Provider [phone] Reason for Visit * Reason Onset Date Comments Palliative Care Follow-up 06/27/2023 Encounter Details Date Type Department Care Team (Late st Contact Info) Description 06/27/2023 Telephone Palliative Medicine, [facility] 400 [facility] 5th [place] [address] Valeria Nath MD 400 [place] [address] Palliative Care Follow-up Allergies Active Allergy Reactions Criticality Noted Date [...] 3, contact heart failure managing provider or [facility] at home case sealer 1 Each 0 01/30/2019 Active aspirin enteric [...] DNR (do not resuscitate) 05/21/2023 Constipation 05/21/2023 [place] (hard of hearing) 05/21/2023 Poor vision 05/21/2023 [...] vein thrombosis) 09/22/2015 PMR (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) 10/18/2012 retirement current use of systemic steroids 10/18 History [...] lower extremities 11/24/2008 09/22/2015 Overview: seen at [facility] ER Anemia 05/13/2008 03/21/2017 Osteoarthritis of knee [...] mRNA, LNP-s, No Pre serve, 2-Dose Series (Anafocus) 08/30/2020,08/02/2020 Pneumococcal Conjugate Vacc, 13 Valent (Prevnar) [...] Telephone Encounter - Katlyn Ortiz LPN - 06/27/2023 11:39 AM EST Patient recently in hospital F/u that was scheduled for tomorrow was cancelled Called and spoke with She states at this time patient is too weak to get out, and she is having health issues herself Patient has a visit with PCP on 06/29 She would prefer to wait and see what PCP says before scheduling anything further She agreed for me to call next week and touch base documented in this encounter Plan of Treatment Upcoming Encounters Date Type Department Care Team (Late st Contact Info) Description 06/27/2023 12:30 PM EST Home Visit [facility] 132 [facility] [place] [address] Emeli Toledo, RN 132 [facility] [place] [address] 06/29/2023 12:45 PM EST Nurse Only Family Practice Deangelo Dotson [address] [place] [address] Nurse [facility] Prac [address] [place] [address] 06/29/2023 1:00 PM EST Office Visit Family Practice Deangelo Dotson [address] [place] [address] Angel Quinteros DO [address] [place] [address] 07/03/2023 9:00 AM EST Scheduled Telephone Palliative Medicine, [facility] 400 [facility] 5th Floor [place] [address] [place], Nurse Palliative Medicine [facility] 5th 400 [facility] [place] [address] 07/06/2023 12:40 PM EST Office Visit Podiatry [facility] [address] [place] [address] Felicita Copeland DPM [address] [place] [address] 07/27/2023 12:40 PM EST Office Visit Gastroenterology, [facility] [address] [facility] [phone] Trina Plaza DO [address] [place] [address] 08/03/2023 1:30 PM EST Office Visit Urology [facility] [place] [address] [place] [address] [place] [address] Ryan Cunningham MD [address] [place] [address] [place] [address] 09/11/2023 2:00 PM EDT Appointment Radiology, [facility] 400 [facility] [place] [phone] 09/11/2023 2:30 PM EDT PulmDiagnostic Pulmonary Function Lab [facility] [place] [address] [place] [address] West, [address] [place] [address] 09/11/2023 3:00 PM EDT Office Visit [facility]monary [facility] [address] [place] [phone] Saul Moscoso MD [address] [place] [address] 10/25/2023 2:40 PM EDT [facility] 200 [facility] [place], [place] [address] Mirza Mcgee III, MD 200 [facility] [place], [place] [address] 05/02/2024 1:00 PM EST Office Visit Sleep Disorders, [facility] 400 [facility] [place] [phone] Alesha John MD 400 [place] [address] Health Maintenance Due Date Last Done Comments [...] this encounter Medical Devices Implanted Type Area Automatic Profile Sander Operator Device Identifier Shelf Expiration Date Model / Serial / Lot Femur Nexgn E Right - [id number] Implanted:Qty: 1 on 05/12/2008 [place] [facility] [place]: Knee [employer] 02/24/2018 00-5996-015 -[id number] / / [id number] Femur Nexgn E Left - [id number] Implanted:Qty: 1 on 11/19/2008 [place] [facility] [place]: Knee [employer] 00-5996-015 -51 / / [id number] Sut Steel 6 M654g - [id number] Implanted:Qty: 6 on 07/11/2011 [place] [facility] [place] N/A: Chest DO NOT USE 01/09/2016 / / [id number] Akreos Ao Micro Incision Lens Mi60l Implanted:Qty: 1 on 11/07/2013 at OR [facility] Right: Eye 06/25/2016 [id number] / [id number] / [id number] documented as of this encounter Advance Directives [...] Agen t (per Health Care Power of Vice [employer] document) [email or web address] Huma Hernández Adult Child First Alternate Health Care Agent (per Health Care Power of [employer] document) [email or web address] Care Teams Neck Band Maker Relationship Specialty Start Date End Date Angel Quinteros DO [address] [place] [address] PCP - General Family Medicine 06/14/23 documented as of this encounter
--- OUTSIDE RECORDS SUMMARY | 2023-07-04 20:35 | External Medical Summary ---
Author Name Unknown Address Unknown Organization K1F:LABORATORY [facility] - [address] [place] [address] Laboratory Report Ordering Provider Test Date Status CARMEN BAKER 06/24/2023 06:59:00 Final Warfarin Therapy
INR: 2 .0-3.0 conventional anticoagulation
INR: 2.5- 3.5 high intensity anticoagulation Observation Date Value Abnormality Reference (Units ) Status PT 06/24/2023 06:59:00 13.9 11.6-15.2 (seconds) Final INR 06/24/2023 06:59:00 1.1 0.8-1.2 Final Performing Location LABORATORY [facility] - [address] [place] [address]
--- OUTSIDE RECORDS SUMMARY | 2023-07-04 20:35 | External Medical Summary | Summary of Care ---
Author Name Unknown Organization [facility] Address [address] [place] [address] Phone [phone] Care Team Providers Care Cartography Teacher Name Role Phone Angel Quinteros DO Primary Care Provider + [phone] Encounter Details Date Type Department Care Team (Late st Contact Info) Description 06/23/2023 Bus Washer Care Coordination [address] [place] [address] Lenka Meyers RN Need for case management follow-up* Allergies Active Allergy Reactions Criticality Noted Date Comments Amoxicillin Rash 09/27/2005 At time of knee replacement Oxycodone Other (Please comment) 10/11/2012 Severe mental change Oxycodone-Acetaminophe n Other (Please comment) 03/15/2010 Severe mental change documented as of this encounter (statuses as of 06/23/2023) Medications Medication Sig Dispensed Refills Start Date End Date Status DIURETIC TITRATION PLAN If no improvement on day 3, contact heart failure managing provider or [facility] at home social work case manager 1 Each 0 01/30/2019 Active [...] as needed for Pain, Breakthrough. 0 Active Hospital, Clinic, or Other Facility Administered [...] as of this encounter (statuses as of 06/23/2023) Active Problems Problem Noted Date Diagnosed Date Intractable nausea and vomiting 06/23/2023 Hypokalemia 06/23/2023 Metastasis to liver 06/23/2023 Hypophosphatemia 06/10/2023 UTI (urinary tract infection) 06/10/2023 Intractable nausea and vomiting 05/21/2023 Uncontrolled pain 05/21/2023 Degenerative lumbar spinal stenosis 05/21/2023 DNR (do not resuscitate) 05/21/2023 Constipation 05/21/2023 [place] (hard of hearing) 05/21/2023 Poor vision 05/21/2023 [...] vein thrombosis) 09/22/2015 PMR (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) 10/18/2012 [facility] current use of systemic steroids 10/18 History [...] as of this encounter (statuses as of 06/23/2023) Resolved Problems Problem Noted Date Diagnosed Date [...] lower extremities 11/24/2008 09/22/2015 Overview: seen at [facility] ER Anemia 05/13/2008 03/21/2017 Osteoarthritis of knee [...] as of this encounter (statuses as of 06/23/2023) Immunizations Name Administration Dates Next Due COVID-19 [...] money to buy more. Never true 05/29/20 Within the past 12 months, t he [...] do you have serious difficulty h earing? Yes 06/10/2023 Are you blind or do you have serious difficulty seeing, even when wearing glasses? Yes 06/10/2023 Do you have serious difficul ty walking or climbing stairs? (5 years old or older) No 06/10/2023 Do you have difficulty dress ing or bathing? (5 years old or older) Yes 06/10/2023 Because of a physical, menta l, or emotional condition, do you have difficulty doing errands alone such as visiting a doctor s office or shopping? (15 years old or older) Yes 06/10/20 Cognitive Status Response Date of Assessm ent Because of a physical, menta l, or emotional condition, do you have serious difficulty concentrating, remembering, or making decisions? (5 years old or older) Yes 06/10/2023 documented as of this encounter Progress Notes * Lenka Meyers RN - 06/23/2023 11:40 AM EST ED CASE MANAGEMENT Date: 06/23/2023 Time: 11:40 AM New ED Referral: ED Site: [facility] Referral Reason: High Utilization and G@H patient Remote Monitoring: Other: n/a Oxygen: None Care Gaps Closed: Education Referrals: N/A Follow Up: Patient actively enrolled with [employer] [facility]: [facility] Staff. SITUATION: Pt presented to the ED with c/o chest pain, abdominal pain, N/V. BACKGROUND: PMH of PMR, prostate cancer, DM, CHF, BPH, spinal stenosis, GERD, OP, dysphagia, SANJEEV, CKD, COPD. ASSESSMENT: Per provider: Reports that starting yesterday the patient has not been able to tolerateoral intake. Reports he did not eat or drink yesterday. He started having profuse vomiting and dry heaving yesterday that continued into today. He was seen by a physician's assistant financial accountant with [facility] home care and was given a sublingual nitro for 9:00 a.m. today and referred to the emergency department. No reported fevers at home. Patient is having generalized abdominal pain. He has a history of non-Hodgkin's lymphoma and newly diagnosed prostate cancer. No reported dysuria or hematuria. Denies any abdominal surgical history. Denies any chest pain or shortness of breath. Denies any recent sick contact exposures. RECOMMENDATION: G@H follow up PCP follow up Call G@H or PCP with questions or concerns Red flags: CP, SOB, AMS Lenka Meyers RN Care Coordination [address] [facility] [address] documented in this encounter Plan of Treatment Upcoming Encounters Date Type Department Care Team (Late st Contact Info) Description 06/24/2023 10:00 AM EST Scheduled Telephone [facility] [address] [place] [address] [facility], Nurse [address] [place] [address] 06/27/2023 12:30 PM EST Home Visit [facility] [place], [facility] [address] [place] [address] Emeli Toledo RN 132 [facility] [place] [address] 06/28/2023 1:00 PM EST Office Visit Palliative Medicine [facility] 200 [facility] [place] [facility] [place] [address] Valeria Nath MD 400 [facility] [place] [address] 06/29/2023 12:45 PM EST Nurse Only Family Practice [address] [place] [address] [place] [address] [place], Nurse Fam Prac [address] [place] [address] 06/29/2023 1:00 PM EST Office Visit Family Practice [address] [place] [address] [place] [address] Angel Quinteros DO [address] [place] [address] 07/06/2023 12:40 PM EST Office Visit Podiatry [facility] [address] [facility] [place] [address] Felicita Copeland DPM [address] [facility] [address] 07/27/2023 12:40 PM EST Office Visit Gastroenterology, [facility] [address] [place] [phone] Trina Plaza DO [address] [place] [address] 08/03/2023 1:30 PM EST Office Visit Urology [facility] [place] [facility] [address] [place] [address] Ryan Cunningham MD [facility] [address] [place] [address] 09/11/2023 2:00 PM EDT Appointment Radiology, [facility] 400 [place] [phone] 09/11/2023 2:30 PM EDT PulmDiagnostic Pulmonary Function Lab [facility] [address] [place] [address] [place], [address] [place] [address] 09/11/2023 3:00 PM EDT Office Visit Pulmonary Medicine Nora Rivera [address] [place] [phone] Saul Moscoso MD [address] [place] [address] 10/25/2023 2:40 PM EDT Office Visit Family Practice [facility] 200 [facility] [place] [address] Mirza Mcgee III, MD 200 [place] [address] 05/02/2024 1:00 PM EST Office Visit Sleep Disorders, [facility] [address] [place] [address] Alesha John MD 400 [facility] [place] [address] Health Maintenance Due Date Last Done Comments Alpha-1 Antitrypsin 1953 Zoster Vaccines (1 of 2) 1954 Hepatitis B (1 of 3 - Risk 3-dose series) 1996 COVID-19 Vaccine (3 - Pfizer risk series) 09/27/2020 08/30/2020, 08/02/2020 Diabetic Foot Exam 12/08/2021 12/08/2020, 0 03/06/2020, 03/04/2019, Additional history exists Reveles's Esophagus Surveilance 05/21/2022 05/21/2019, 05/21/2019, 04/25/2018, Additional history exists DTaP,Tdap,and Td Vaccines (2 - Td or Tdap) 10/04/2022 10/04/2012, 05/30/2003 Diabetic Eye Exam 10/11/2022 10/11/2021, , 07/14/2021, Additional history exists *BISPHONATE OR OTHER ACCEPTABLE MEDICATION NEEDED FOR OSTEOPOROSIS (REFER TO SMARTSET #1146) 06/01/2023 *NEPHROLOGY REFERRAL DUE TO RESISTANT HTN 06/17/2023 HbA1c 10/14/2023 04/14/2023, 05/0 08/2022, 06/10/2022, Additional history exists Albumin/Creatinine Ratio 10/27/2023 10/26/2022, 02/25 DXA Scan 11/03/2023 11/02/2021, 07/27, 04/11/2017, Additional history exists Depression Screening 02/03/2024 02/02/2023 CKD PHOS USE SMARTSET 50106 06/12/202405/26, 06/11/2023, 06/10/2023, Additional history exists CKD HGB USE SMARTSET 22620 06/23/202406/23, 06/23/2023, 06/13/2023, Additional history exists O2 ASSESSMENT COMPLETED IN PAST YEAR FOR COPD 06/23/2024 06/23/2023 Pneumococcal Vaccine: 65+ Years Completed 09/22/2015, 08/21/2001 VITAMIN D LEVEL ONCE IN A LIFETIME-USE SMARTSET# 11249 Completed 10/26/2022, 10/11/2021, 01/01/2019, Additional history exists Influenza Vaccine (FLU shot) Completed , 03/31/2022, 03/23/2021, Additional history exists GARDASIL-HPV IMMUNIZATION SERIES Aged Out No longer eligible based on patient's age to complete this topic MENINGOCOCCAL (MENACTRA/MENVEO) Aged Out No longer eligible based on patient's age to complete this topic documented as of this encounter Medical Devices Implanted Type Area Net Developer Device Identifier Shelf Expiration Date Model / Serial / Lot Femur Nexgn E Right - [id number] [place]:Q[place] 1 [place] [facility] [place] Knee [employer] 02/24/2018 00-5996-015 -52 / / [id number] Femur Nexgn E Left - [id number] Implanted:Qty: 1 on 11[place]19/2008 [place] [facility] [place]: Knee [employer] 00-5996-015 -51 / / [id number] Sut Steel 6 M654g - [id number] Implanted:Qty: 6 on 07/11/2011 [place] [facility] [place]/A: Chest DO NOT USE 01/09/2016 / / [id number] Akreos Ao Micro Incision Lens Mi60l Implanted:Qty: 1 on 11/07/2013 at OR [facility] Right: Eye 06/25/2016 [id number] / [id number] / [id number] documented as of this encounter Visit Diagnoses Diagnosis Need for case management follow-up- Primary documented in this encounter Additional Health Concerns [...] Date Activated Date Inactivated Comments No Code 05/21/2023 9:24 AM 05/27/2023 5:50 [...] Directives occurred with: Not Discussed Full Code 02/26/2018 4:32 AM 03/01/2018 10:00 PM This o rder reflects the patients wishes and were consensually agreed upon. Question Answer Comments Discussion of Advance Directives occurred with: Patient/Family Does the patient have a Living Will? Yes, not currently available Does the patient have Health Care Power of Last Inserter? No Healthcare Agents on File Name Relationship Healthcare Agent Relationship Communication Soledad Peters Spouse Health Care Agen t (per Health Care Power of Last Inserter document) [email or web address] Huma Hernández Adult Child First Alternate Health Care Agent (per Health Care Power of Last Inserter document) [email or web address] Care Teams Cartography Teacher Relationship Specialty Start Date End Date Angel Quinteros DO [address] [place] [address] PCP - General Family Medicine 06/14/23 documented as of this encounter
--- OUTSIDE RECORDS SUMMARY | 2023-07-04 20:35 | External Medical Summary ---
Author Name Unknown Address Unknown Organization K1F:LABORATORY [facility] - [address] [place] [address] Laboratory Report Ordering Provider Test Date Status CARMEN BAKER 06/24/2023 06:59:00 Final Observation Date Value Abnormality Reference (Units ) Status WBC, Total 06/24/2023 06:59:00 7.93 4.00-10.80 (K/uL) Final RBC 06/24/2023 06:59:00 4.97 4.50-5.25 (M/uL) Final Hemoglobin 06/24/2023 06:59:00 15.0 14.0-16.8 (g/dL) Final HCT 06/24/2023 06:59:00 44.6 40.0-48.4 (%) Final MCV 06/24/2023 06:59:00 89.7 82.0-99.5 (fL) Final MCH 06/24/2023 06:59:00 30.2 27.0-34.0 (pg) Final MCHC 06/24/2023 06:59:00 33.6 32.0-36.0 (g/dL) Final RDW 06/24/2023 06:59:00 13.8 11.5-15.5 (%) Final Platelets 06/24/2023 06:59:00 174 140-400 (K/uL) Final MPV 06/24/2023 06:59:00 11.1 6.6-11.1 (fL) Final Nucleated erythrocytes/100 leukocytes [Ratio] in Blood by Automated count 06/24/2023 06:59:00 0 <=0 (/100 WBCs) Final Performing Location LABORATORY [facility] - [address] [place] [address]
--- OUTSIDE RECORDS SUMMARY | 2023-07-04 20:35 | External Medical Summary ---
Author Name Unknown Address Unknown Organization K1F:LABORATORY [address] [place] [address] Laboratory Report Ordering Provider Test Date Status JAYDEN LYLES 06/23/2023 11:50:00 Final Observation Date Value Abnormality Reference (Units ) Status Bacteria identified in Specimen by Culture 06/23/2023 11:50:00 No growth Final Test: Culture, Blood
Sp ecimen Source: Blood, Venous
Specimen Type: Blood
Specimen Date: 06/23/2023 11:50 AM
Result Date: 06/28/2023 12:01 PM
Result Status: Final result
Resulting Lab: LABORATORY [facility]
[address] [place] [address]
Nora [place] [address]

CULTURE

No growth

null Performing Location LABORATORY [facility] - [address] [place] [address] Ave. Nora [place]Z [address]
--- OUTSIDE RECORDS SUMMARY | 2023-07-04 20:35 | External Medical Summary ---
Author Name Unknown Address Unknown Organization : Laboratory Report Ordering Provider Test Date Status CASSY KENYON 06/25/2023 11:21:40 Final Observation Date Value Abnormality Reference (Units ) Status Glucose Point of Care 06/25/2023 11:21:40 174 Above high normal 70-120 (mg/dL) Final Performing Location
--- OUTSIDE RECORDS SUMMARY | 2023-07-04 20:35 | External Medical Summary ---
Author Name Unknown Address Unknown Organization K1F:LABORATORY [facility] - [address] [place] [address] Laboratory Report Ordering Provider Test Date Status CARMEN BAKER 06/24/2023 06:59:00 Final Observation Date Value Abnormality Reference (Units ) Status Magnesium 06/24/2023 06:59:00 1.9 1.5-2.6 (m g/dL) Final Performing Location LABORATORY [facility] - [address] [place] [address]
--- OUTSIDE RECORDS SUMMARY | 2023-07-04 20:35 | External Medical Summary | Summary of Care ---
Author Name Unknown Organization [facility] Address [address] [place] [address] Phone [phone] Care Team Providers Care Dry Cell Assembly Supervisor Name Role Phone Angel Quinteros DO Primary Care Provider + [phone] Encounter Details Date Type Department Care Team (Late st Contact Info) Description 06/23/2023 9:00 AM EST [facility] [address] [place] [address] Amador Moreno PA-C [address] [place] [address] Allergies Active Allergy Reactions Criticality Noted Date [...] failure managing provider or [facility] rehabilitation case coordinator 1 Each 0 01/30/2019 Active aspirin [...] Active Problems Problem Noted Date Diagnosed Date Hypophosphatemia 06/10/2023 UTI (urinary tract infection) 06/10/2023 [...] vein thrombosis) 09/22/2015 PMR (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) 10/18/2012 [facility] current use of systemic steroids 10/18 History [...] lower extremities 11/24/2008 09/22/2015 Overview: seen at [facility] ER Anemia 05/13/2008 03/21/2017 Osteoarthritis of knee [...] as of this encounter Progress Notes * Amador Moreno PA-C - 06/23/2023 10:14 AM EST Arrived at home. Patient sitting in living room chair with bucket in front of him. Family reports ongoing nausea/vomiting >24 hours. Patient reports intermittent nausea for past few months. Significant weight loss reported by . Was advised to go to ER yesterday, but declined. Was contacted by PCP just prior to my arrival this morning, and has agreed to ER visit at this time. Has not taken anything for nausea yet today, recommended zofran odt. Seen by palliative during previous admission. 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 Patient completed POLST, DNR with previous palliative provider. Not interested in aggressive treatment. Can reschedule f/u once patient returns from hospital. May consider additional treatments for ongoing nausea at that time. Family aware to notify [facility] once patient returns home. documented in this encounter Plan of Treatment Upcoming Encounters Date Type Department Care Team (Late st Contact Info) Description 06/24/2023 10:00 AM EST Scheduled Telephone [facility] 132 [facility] [place] [address] [facility], Nurse [facility] 132 [facility] [place] [address] 06/27/2023 12:30 PM EST [facility] Visit [facility] [place], [facility] [address] [place] [address] Emeli Toledo RN 132 [facility] [place] [address] 06/28/2023 1:00 PM EST Office Visit Palliative Medicine [facility] [address] [place] [address] Valeria Nath MD [address] [place] [address] [address] [place] [address] 06/29/2023 12:45 PM EST Nurse Only Family Practice [address] [place] [address] [place] [address] [place], [facility] Prac [address] [place] [address] 06/29/2023 1:00 PM EST Office Visit Family Practice [address] [place] [address] [place] [address] Angel Quinteros, DO [address] [place] [address] 07/06/2023 12:40 PM EST Office Visit Podiatry [facility] [address] [place] [address] Felicita Copeland DPM [address] [place] [address] 07/27/2023 12:40 PM EST Office Visit Gastroenterology, [facility] [address] [place] [phone] Trina Plaza, DO [address] [place] [address] 08/03/2023 1:30 PM EST Office Visit Urology Ute Benitez [place] [address] [facility] [address] [place] [address] Ryan Cunningham MD [address] [place] [address] 09/11/2023 2:00 PM EDT Appointment Radiology, [address] [place] [phone] 09/11/2023 2:30 PM EDT PulmDiagnostic Pulmonary Function Lab Harry Row[place] [address] [place] [address] [place], [address] [place] [address] 09/11/2023 3:00 PM EDT Office Visit Pulmonary Medicine [facility] [address] [place] [phone] Saul Moscoso MD [address] [place] [address] 10/25/2023 2:40 PM EDT Office Visit Family Practice [facility] [address] [facility] [place], [place] [address] Mirza Mcgee III, MD [address] [facility] [place], [place] [address] 05/02/2024 1:00 PM EST Office Visit Sleep Disorders, [facility] [address] [place] [address] Alesha John MD [address] [place] [address] Health Maintenance Due Date Last Done Comments [...] TO RESISTANT HTN 06/17/2023 HbA1c 10/14/2023 04/14/2023, 0508/2022, 06/10/2022, Additional history exists Albumin/Creatinine Ratio 10/27/2023 10/26/2022, 02/25 DXA Scan 11/03/2023 11/02/2021, 07/27, 04/11/2017, Additional history exists Depression Screening 02/03/2024 02/02/2023 CKD PHOS USE SMARTSET 43122 06/12/202405/26, 06/11/2023, 06/10/2023, Additional history exists CKD HGB USE SMARTSET 47448 06/13/202406/13, 06/13/2023, 06/12/2023, Additional history exists O2 ASSESSMENT COMPLETED IN PAST YEAR FOR COPD 06/15/2024 06/15/2023 Pneumococcal Vaccine: 65+ Years Completed 09/22/2015, 08/21/2001 VITAMIN D LEVEL ONCE IN A LIFETIME-USE SMARTSET# 27266 Completed 10/26/2022, 10/11/2021, 01/01/2019, Additional history exists Influenza Vaccine (FLU shot) Completed , 03/31/2022, 03/23/2021, Additional history exists GARDASIL-HPV IMMUNIZATION SERIES Aged Out No longer eligible based on patient's age to complete this topic MENINGOCOCCAL (MENACTRA/MENVEO) Aged Out No longer eligible based on patient's age to complete this topic documented as of this encounter Medical Devices Implanted Type Area Farm Machinery Engine Mechanic Device Identifier Shelf Expiration Date Model / Serial / Lot Femur Nexgn E Right - [id number] Implanted:Q[place]: 1 [place]12/[place] [facility] [place]: Knee [employer] 02/24/2018 [id number] / / [id number] Femur Nexgn E Left - [id number] Implanted:Qty: 1 on 11/19/2008 [place] [facility] [place]: Knee [employer] [id number] / / [id number] Sut Steel 6 M654g - [id number] Implanted:Qty: 6 on 07/11/2011 [place] [facility] N/A: Chest DO NOT USE 01/09/2016 / / [id number] Ao Micro Incision Lens Mi60l Implanted:Qty: 1 on 11/07/2013 at OR [facility] Right: Eye 06/25/2016 [id number] / [id number] / [id number] documented as of this encounter Additional Health Concerns Infection Onset Date Last Indicated Resolved Time Respiratory Rule-Out 06/23/2023 06/23/2023 COVID-19 Rule-Out 06/23/2023 06/23/2023 documented as of this encounter Advance Directives [...] the patient have Health Care Power of Soil Scientist? No Healthcare Agents on File Name Relationship Healthcare Agent Relationship Communication Soledad Peters Spouse Health Care Agezack jimenez (per Health Care Power of Soil Scientist document) [email or web address] Huma Hernández Adult Child First Alternate Health Care Agent (per Health Care Power of Soil Scientist document) [email or web address] Care Teams Dry Cell Assembly Supervisor Relationship Specialty Start Date End Date Angel Quinteros DO [address] [place] [phone] PCP - General Family Medicine 06/14/23 documented as of this encounter
--- OUTSIDE RECORDS SUMMARY | 2023-07-04 20:35 | External Medical Summary ---
Author Name Unknown Address Unknown Organization K1F:LABORATORY [facility] - [address] [place] [address] Laboratory Report Ordering Provider Test Date Status CARMEN BAKER 06/24/2023 06:59:00 Final Observation Date Value Abnormality Reference (Units ) Status Phosphate 06/24/2023 06:59:00 2.9 2.5-4.8 (m g/dL) Final Performing Location LAB[facility]AT[facility] - [address] [place] [address]
--- OUTSIDE RECORDS SUMMARY | 2023-07-04 20:35 | External Medical Summary ---
Author Name Unknown Address Unknown Organization : Laboratory Report Ordering Provider Test Date Status CASSY KENYON 06/25/2023 16:41:50 Final Observation Date Value Abnormality Reference (Units ) Status Glucose Point of Care 06/25/2023 16:41:50 165 Above high normal 70-120 (mg/dL) Final Performing Location
--- OUTSIDE RECORDS SUMMARY | 2023-07-04 20:35 | External Medical Summary | Summary of Care ---
Author Name Unknown Organization [facility] Address [address] [place] [address] Phone [phone] Care Team Providers Care Paper Cup Machine Tender Name Role Phone Angel Quinteros DO Primary Care Provider + [phone] Reason for Visit * Reason Onset Date Comments [facility]: Maintenance 06/23/2023 Encounter Details Date Type Department Care Team (Late st Contact Info) Description 06/23/2023 Telephone [facility], [facility] 132 [facility] [place] [address] [facility], Nurse [facility] 132 [facility] [place] [address] [facility]: Maintenance Allergies Active Allergy Reactions Criticality Noted Date [...] home case checker 1 Each 0 01/30/2019 Suspended Additional Information aspirin enteric coated 81 MG TBECIndications:HTN , goal below 140/90 Take one pill daily 100 Tab 3 11/22/2019 Suspended Additional Information Patient taking differently:, Take one pill daily,Indications: blood pressure, Reported on 05/02/2022 oxygen IN GASIndications:Facilities Director laura respiratory failure with hypoxia (HCC),PHT (pulmonary hypertension) (HCC) 1.5 lpm bled into CPAP and with activity/exertio n 1 Each 03/31/2021 Suspended Additional Information Potassium Chloride ER 10 MEQ Oral Tablet Extended Release Take 3 Tablets by mouth in the morning. 0 Suspended Spironolactone 25 MG Oral Tablet (Aldactone)Indicati ons:HTN, goal below 140/90,Chronic diastolic heart failure (HCC) Take 1/2 tablet daily 45 Tablet 3 09/30/2022 Suspended Additional Information Prolia 60 MG/ML Subcutaneous Solution Prefilled Syringe (Denosumab) INJECT 60 MG (1 SYRINGE) UNDER THE SKIN EVERY 6 MONTHS 1 mL 1 10/07/2022 10/07/19 24 Suspended Additional Information Benzonatate 100 MG Oral CapsuleIndications: Bronchitis, complicated,Viral URI with cough Take 1-2 capsules three times daily as needed for cough. Do not cut, crush, or chew. 40 Capsule 1 10/06/2022 Suspended Additional Information Albuterol Sulfate HFA 108 (90 Base) MCG/ACT Inhalation Aerosol SolutionIndications :Acute bronchitis, antibiotics not indicated Inhale 2 Puffs by mouth every 4 hours as needed for Wheezing. 18 g 3 12/26/2022 Suspended Additional Information Fluticasone Furoate-Vilanterol 100-25 MCG/ACT Inhalation Aerosol Powder Breath Activated (BREO ellipta)Indications :Restrictive lung disease INHALE ONE PUFF BY MOUTH EVERY DAY 180 Each 3 11/01/2022 11/01/19 24 Suspended Additional Information Gabapentin 400 MG Oral Capsule (Neurontin) TAKE ONE CAPSULE BY MOUTH FOUR TIMES A DAY 400 Capsule 3 10/13/2022 10/13/19 24 Suspended Additional Information Benazepril HCl 40 MG Oral Tablet TAKE ONE TABLET BY MOUTH EVERY DAY 90 Tablet 3 09/04/2022 09/04/19 24 Suspended Additional Information Atorvastatin Calcium 20 MG Oral Tablet (Lipitor) TAKE ONE TABLET BY MOUTH EVERY DAY 90 Tablet 3 08/22/2022 09/10/19 24 Suspended Additional Information Doxazosin Mesylate 8 MG Oral Tablet TAKE ONE TABLET BY MOUTH AT BEDTIME 90 Tablet 3 08/01/2022 08/12/19 24 Suspended Additional Information Finasteride 5 MG Oral Tablet (Proscar)Indication s:BPH with obstruction/lower urinary tract symptoms TAKE ONE TABLET BY MOUTH EVERY MORNING 90 Tablet 3 08/01/2022 08/12/19 24 Suspended Additional Information Atenolol 50 MG Oral Tablet (Tenormin)Indicatio ns:HTN, goal below 140/90,PVC (premature ventricular contraction) TAKE ONE TABLET BY MOUTH EVERY MORNING AND TAKE ONE-HALF TABLET IN THE EVENING 135 Tablet 3 02/08/2023 02/08/20 24 Suspended Additional Information Diclofenac Sodium 1 % External Gel (Voltaren) APPLY 4 GRAMS TOPICALLY TO UPPER/LOWER BACK TWO TIMES A DAY NEEDED FOR PAIN 800 g 0 02/24/2023 Suspended Additional Information Ipratropium-Albuter ol 0.5-2.5 (3) MG/3ML Inhalation Solution (Duoneb)Indications :Wheezing,Bronchiti s, complicated INHALE 1 VIAL (3ml) IN NEBULIZER 4 TIMES A DAY. 1080 mL 1 03/08/2023 Suspended Additional Information Omeprazole 20 MG Oral Capsule Delayed Release (PriLOSEC) TAKE ONE CAPSULE BY MOUTH TWICE A DAY 180 Capsule 3 04/04/2023 04/03/20 24 Suspended Additional Information amLODIPine Besylate 5 MG Oral Tablet (Norvasc)Indication s:HTN, goal below 140/90 TAKE ONE TABLET BY MOUTH EVERY DAY 100 Tablet 1 04/24/2023 04/23/20 24 Suspended Additional Information Furosemide 20 MG Oral Tablet (Lasix)Indications: HTN, goal below 140/90,Chronic diastolic heart failure (HCC) TAKE ONE TABLET BY MOUTH EVERY MORNING. MAY TAKE ONE ADDITIONAL TABLET NEEDED FOR FLUID RETENTION, WEIGHT GAIN 100 Tablet 3 04/25/2023 04/24/20 24 Suspended Additional Information busPIRone HCl 5 MG Oral Tablet (Buspar) Take 1 Tablet by mouth in the morning and 1 Tablet before bedtime. 60 Tablet 6 04/24/2023 Suspended Additional Information predniSONE 5 MG Oral Tablet (Deltasone) TAKE ONE TABLET BY MOUTH DAILY 100 Tablet 0 04/26/2023 04/25/20 24 Suspended Additional Information CPAP 10 cm every night at bedtime. W/oxygen 1.5 lpm bled into cpap 0 Suspended Docusate Sodium 100 MG Oral Capsule (Colace) Take 1 Capsule by mouth in the morning and 1 Capsule before bedtime. 30 Capsule 0 05/27/2023 Suspended Additional Information Polyethylene Glycol 3350 17 GM Oral Packet (Miralax) Take 1 Packet by mouth in the morning. 14 Each 0 05/27/2023 Suspended Additional Information traMADol HCl 50 MG Oral Tablet (Ultram)Indications :Prostate cancer metastatic to bone (HCC) Take 1 Tablet by mouth every 6 hours as needed for Pain, Severe. Take 1 tablet every 6 hours around the clock to control pain. 60 Tablet 0 06/08/2023 Suspended Additional Information Metoclopramide HCl 5 MG Oral Tablet (Reglan)Indications :Metastases to the liver (HCC) Take 1 or 2 tablets 3 times a day before meals to control nausea. 90 Tablet 3 06/08/2023 Suspended Additional Information Ondansetron 4 MG Oral Tablet Disintegrating (Zofran) Dissolve 1 Tablet on tongue every 8 hours as needed for Nausea. 20 Tablet 0 06/13/2023 Suspended Additional Information Prochlorperazine Maleate 10 MG Oral Tablet (Compazine) Take 1 Tablet by mouth every 6 hours as needed for Nausea. 20 Tablet 1 06/13/2023 Suspended Additional Information Sennosides-Docusate Sodium 8.6-50 MG Oral Tablet (Senokot-S) Take 1 Tablet by mouth daily as needed for Constipation. 30 Tablet 0 06/13/2023 Suspended Additional Information Vitamin D 25 MCG (1000 UT) Oral Tablet Take by mouth daily. 0 Suspended Bisacodyl 5 MG Oral Tablet Delayed Release (Dulcolax) Take 1 Tablet by mouth daily as needed for Constipation. 0 Suspended Acetaminophen 500 MG Oral Tablet (Tylenol) Take 2 Tablets by mouth every 8 hours as needed for Pain, Breakthrough. 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 [...] extremities 11/24/2008 09/22/2015 Overview: seen at [facility] ER Anemia 05/13/2008 03/21/2017 Osteoarthritis [...] encounter Miscellaneous Notes * Telephone Encounter - Shanta Hanna RN - 06/23/2023 3:36 PM EST [facility] Notification Date: 06/23/2023 Time: 3:36 PM [facility] Subprogram: No data was found [facility] Episode Start Date: No linked episodes [facility] Enrollment Status: Not Yet Enrolled Action Taken on [employer] Alert and Outcome of ED Visit: Review ONLY: Admitted to Inpatient Shanta Hanna RN documented in this encounter Plan of Treatment Upcoming Encounters Date Type Department Care Team (Late st Contact Info) Description 06/27/2023 12:30 PM EST [facility] [address] [facility] [place] [address] Emeli Toledo, RN 132 [facility] [place] [address] 06/28/2023 1:00 PM EST Office Visit Palliative Medicine [facility] [address] [place] [address] Valeria Nath MD [address] [place] [phone] 06/29/2023 12:45 PM EST Nurse Only Family Practice [address] [facility], [place] [address] [place] [address] [place], Nurse Fam Prac [address] [place] [address] 06/29/2023 1:00 PM EST Office Visit Family Practice [address] [facility], [place] [address] [place] [address] Angel Quinteros DO [address] [place] [address] 07/06/2023 12:40 PM EST Office Visit Podiatry [facility] [address] [facility] [place] [address] Felicita Copeland DPM 132 [facility] [place] [address] 07/27/2023 12:40 PM EST Office Visit Gastroenterology, [facility] [place] [address] [place], [place] [address] [phone] Trina Plaza DO 132 [facility] [place] [address] 08/03/2023 1:30 PM EST Office Visit Urology [place] [address] [address] [place] [address] Ryan Cunningham MD 27 [facility] [address] [place] [address] 09/11/2023 2:00 PM EDT Appointment Radiology, [facility] [address] [facility] [phone] 09/11/2023 2:30 PM EDT PulmDiagnostic Pulmonary Function Lab [facility] [place] [address] [place] [address] [place], [address] [address] [facility] [place] [address] 09/11/2023 3:00 PM EDT [facility] [place] [address] [place] [phone] Saul Moscoso MD [address] [facility] [address] 10/25/2023 2:40 PM EDT Office Visit Family Practice [facility] 200 [place] [address] Mirza Mcgee III, MD 200 [facility] [address] 05/02/2024 1:00 PM EST Office Visit Sleep Disorders, [facility] 400 [facility] [place] [address] Alesha John MD 400 [place] [address] Health Maintenance Due Date Last Done Comments Zoster Vaccines (1 of 2) 1954 COVID-19 Vaccine (3 - Pfizer risk series) 09/27/2020 08/30/2020, 08/02/2020 *BISPHONATE OR OTHER ACCEPTA BLE MEDICATION NEEDED FOR OSTEOPOROSIS (REFER TO SMARTSET #1146) 06/01/2023 *NEPHROLOGY REFERRAL DUE TO RESISTANT HTN 06/17/2023 Depression Screening 02/03/2024 02/02/2023 O2 ASSESSMENT COMPLETED IN P AST YEAR FOR COPD 06/23/2024 06/23/2023 DXA Scan 11/02/2024 11/02/2021, 07/27, 04/11/2017, Additional history exists Diabetic Foot Exam Discontinued 12/08/2020, 0 03/06/2020, 03/04/2019, Additional history exists Diabetic Eye Exam Discontinued 10/11/2021, , 07/14/2021, Additional history exists Albumin/Creatinine Ratio Discontinued 10/26/2022, 02/25 Influenza Vaccine (FLU shot) Completed , 03/31/2022, 03/23/2021, Additional history exists documented as of this encounter Medical Devices Implanted Type Area Director Asset Device Identifier Shelf Expiration Date Model / Serial / Lot Femur Nexgn E Right - [id number] Implanted:Q[place] 1 [place] 05[place]12/[place] [facility] [place] Knee [employer] 02/24/2018 00-5996-015 -[id number] / / [id number] Femur Nexgn E Left - [id number] Implanted:Qty: 1 on 11/19/2008 [place] [facility] [place]: Knee [employer] [id number] -[id number] / / [id number] Sut Steel 6 M654g - [id number] Implanted:Qty: 6 on 07/11/2011 [place] [facility] [place]/A: Chest DO NOT USE 01/09/2016 / / [id number] Akreos Ao Micro Incision Lens Mi60l Implanted:Qty: 1 on 11/07/2013 at OR [facility] Right: Eye 06/25/2016 [id number] / [id number] / [id number] documented as of this encounter Additional Health Concerns Infection Onset Date Last Indicated Resolved Time Respiratory Rule-Out 06/23/2023 06/23/2023 023 11:38 AM EST COVID-19 Rule-Out 06/23/2023 06/23/2023 06/23/2023 11:38 AM EST documented as of this encounter Advance Directives Latest Code Status on File Code Status Date Activated Date Inactivated Comments No Code 06/23/2023 1:13 PM This orde r reflects the patients wishes and were consensually [...] Agen t (per Health Care Power of Bmw Sales Consultant document) [email or web address] Huma Hernández Adult Child First Alternate Health Care Agent (per Health Care Power of Bmw Sales Consultant document) [email or web address] Care Teams Paper Cup Machine Tender Relationship Specialty Start Date End Date Angel Quinteros DO [address] [place] [address] PCP - General Family Medicine 06/14/23 documented as of this encounter
--- OUTSIDE RECORDS SUMMARY | 2023-07-04 20:35 | External Medical Summary ---
Author Name Unknown Address Unknown Organization : Laboratory Report Ordering Provider Test Date Status CASSY KENYON 06/23/2023 21:46:31 Final Observation Date Value Abnormality Reference (Units ) Status Glucose Point of Care 06/23/2023 21:46:31 115 70-120 (mg/dL) Final Performing Location
--- OUTSIDE RECORDS SUMMARY | 2023-07-04 20:35 | External Medical Summary ---
Author Name Unknown Address Unknown Organization : Laboratory Report Ordering Provider Test Date Status CASSY KENYON 06/24/2023 21:25:04 Final Observation Date Value Abnormality Reference (Units ) Status Glucose Point of Care 06/24/2023 21:25:04 120 70-120 (mg/dL) Final Performing Location
--- OUTSIDE RECORDS SUMMARY | 2023-07-04 20:35 | External Medical Summary ---
Author Name Unknown Address Unknown Organization : Laboratory Report Ordering Provider Test Date Status CASSY KENYON 06/25/2023 07:44:59 Final Observation Date Value Abnormality Reference (Units ) Status Glucose Point of Care 06/25/2023 07:44:59 126 Above high normal 70-120 (mg/dL) Final Performing Location
--- OUTSIDE RECORDS SUMMARY | 2023-07-04 20:35 | External Medical Summary ---
Author Name Unknown Address Unknown Organization : Laboratory Report Ordering Provider Test Date Status CASSY KENYON 06/26/2023 11:29:39 Final Observation Date Value Abnormality Reference (Units ) Status Glucose Point of Care 06/26/2023 11:29:39 169 Above high normal 70-120 (mg/dL) Final Performing Location
--- OUTSIDE RECORDS SUMMARY | 2023-07-04 20:35 | External Medical Summary ---
Author Name Unknown Address Unknown Organization : Laboratory Report Ordering Provider Test Date Status CASSY KENYON 06/24/2023 12:31:41 Final Observation Date Value Abnormality Reference (Units ) Status Glucose Point of Care 06/24/2023 12:31:41 148 Above high normal 70-120 (mg/dL) Final Performing Location
--- OUTSIDE RECORDS SUMMARY | 2023-07-04 20:35 | External Medical Summary ---
Author Name Unknown Address Unknown Organization : Laboratory Report Ordering Provider Test Date Status CASSY KENYON 06/24/2023 16:22:03 Final Observation Date Value Abnormality Reference (Units ) Status Glucose Point of Care 06/24/2023 16:22:03 173 Above high normal 70-120 (mg/dL) Final Performing Location
--- OUTSIDE RECORDS SUMMARY | 2023-07-04 20:35 | External Medical Summary ---
Author Name Unknown Address Unknown Organization K1F:LABORATORY [facility] - [address] [place], [place] [address]ai [place] [address] Laboratory Report Ordering Provider Test Date Status TRUPTIJAYDEN 06/23/2023 11:55:00 Final No anaerobic bottle received . Observation Date Value Abnormality Reference (Units ) Status Bacteria identified in Specimen by Culture 06/23/2023 11:55:00 No growth Final Test: Culture, Blood (Site 2 )
Specimen Source: Blood, Venous
Specimen Type: Blood
Specimen Date: 06/23/2023 11:55 AM
Result Date: 06/28/2023 12:01 PM
Result Status: Final result
Resulting Lab: LABORATORY [facility]
[address] [place] [address]
[place] [address]

CULTURE

No growth

No anaerobic bottle received.

null Performing Location LABORATORY [address] [place] [address]
--- OUTSIDE RECORDS SUMMARY | 2023-07-04 20:35 | External Medical Summary ---
Author Name Unknown Address Unknown Organization K1F:LABORATORY [facility] - [address] [place] [address] Laboratory Report Ordering Provider Test Date Status CASSY KENYON 06/26/2023 06:32:00 Final Observation Date Value Abnormality Reference (Units ) Status BUN 06/26/2023 06:32:00 21 Above high normal 6-20 (mg/dL) Final Creatinine 06/26/2023 06:32:00 0.8 0.6-1.2 (mg/dL) Final Glomerular filtration rate/1.73 sq M.predicted [Volume Rate/Area] in Serum, Plasma or Blood by Creatinine-based formula (CKD-EPI) 06/26/2023 06:32:00 85 >=60 (mL/min) Final eGFR is calculated based on the CKD-EPI 2020 equation SODIUM 06/26/2023 06:32:00 138 135-146 (m mol/L) Final Potassium 06/26/2023 06:32:00 4.2 3.5-5.1 (m mol/L) Final Result may be falsely elevat ed due to hemolysis. Cl 06/26/2023 06:32:00 102 98-107 (mm ol/L) Final CO2 06/26/2023 06:32:00 27 22-32 (mmo l/L) Final Anion gap 06/26/2023 06:32:00 9 7-15 (mmol /L) Final Glucose 06/26/2023 06:32:00 149 Above high normal 70 -120 (mg/dL) Final Calcium 06/26/2023 06:32:00 8.3 Below low normal 8.4 -10.2 (mg/dL) Final Performing Location LABORATORY [facility] - [address] [place] [address]
--- OUTSIDE RECORDS SUMMARY | 2023-07-04 20:35 | External Medical Summary ---
Author Name Unknown Address Unknown Organization : Laboratory Report Ordering Provider Test Date Status CASSY KENYON 06/24/2023 08:14:31 Final Observation Date Value Abnormality Reference (Units ) Status Glucose Point of Care 06/24/2023 08:14:31 125 Above high normal 70-120 (mg/dL) Final Performing Location
--- OUTSIDE RECORDS SUMMARY | 2023-07-04 20:35 | External Medical Summary ---
Author Name Unknown Address Unknown Organization K1F:LABORATORY [facility] - [address] [place] [address] Laboratory Report Ordering Provider Test Date Status CARMEN BAKER 06/24/2023 06:59:00 Final Observation Date Value Abnormality Reference (Units ) Status BUN 06/24/2023 06:59:00 9 6-20 (mg/dL) Final Creatinine 06/24/2023 06:59:00 0.8 0.6-1.2 (mg/dL) Final Glomerular filtration rate/1.73 sq M.predicted [Volume Rate/Area] in Serum, Plasma or Blood by Creatinine-based formula (CKD-EPI) 06/24/2023 06:59:00 87 >=60 (mL/min) Final eGFR is calculated based on the CKD-EPI 2020 equation SODIUM 06/24/2023 06:59:00 139 135-146 (m mol/L) Final Potassium 06/24/2023 06:59:00 3.3 Below low normal 3.5 -5.1 (mmol/L) Final Cl 06/24/2023 06:59:00 99 98-107 (mm ol/L) Final CO2 06/24/2023 06:59:00 28 22-32 (mmo l/L) Final Anion gap 06/24/2023 06:59:00 12 7-15 (mmol /L) Final Glucose 06/24/2023 06:59:00 132 Above high normal 70 -120 (mg/dL) Final Albumin 06/24/2023 06:59:00 3.8 3.8-5.0 (g /dL) Final AST (Aspartate aminotransferase) 06/24/2023 06:59:00 67 Above high normal 10-50 (U/L) Final Alk Phos 06/24/2023 06:59:00 192 Above high normal 35 -130 (U/L) Final Bilirubin, Total 06/24/2023 06:59:00 1.1 <=1 .2 (mg/dL) Final Calcium 06/24/2023 06:59:00 8.4 8.4-10.2 ( mg/dL) Final Protein 06/24/2023 06:59:00 6.7 6.0-8.3 (g /dL) Final ALT (Alanine aminotransferase) 06/24/2023 06:59:00 44 10-50 (U/L) Peter simons Performing Location LABORATORY [facility] - [address] [place], [place] [address]ivana [place] [address]
--- OUTSIDE RECORDS SUMMARY | 2023-07-04 20:35 | External Medical Summary ---
Author Name Unknown Address Unknown Organization K1F:LABORATORY [facility] - [address] [place] [address] Laboratory Report Ordering Provider Test Date Status VIRGINIA ROOTSHANNAN 06/23/2023 15:51:00 Final Observation Date Value Abnormality Reference (Units ) Status Potassium 06/23/2023 15:51:00 3.1 Below low normal 3.5 -5.1 (mmol/L) Final Performing Location LABORATORY [facility] - [address] [place] [address]
--- OUTSIDE RECORDS SUMMARY | 2023-07-04 20:35 | External Medical Summary | Summary of Care ---
Author Name Unknown Organization [facility] Address [address] [place] [address] Phone [phone] Care Team Providers Care [employer] Counselor Name Role Phone Angel Quinteros DO Primary Care Provider + [phone] Reason for Visit * Reason Onset Date Comments [facility]: Maintenance 06/23/2023 Encounter Details Date Type Department Care Team (Late st Contact Info) Description 06/23/2023 Telephone [facility], [facility] [address] [facility] [place] [address] [facility], Nurse 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 10/18 History [...] extremities 11/24/2008 09/22/2015 Overview: seen at [facility] ER Anemia 05/13/2008 03/21/2017 Osteoarthritis of [...] [employer] Notification Date: 06/23/2023 Time: 3:36 PM [facility] Subprogram: No data was found [facility] Episode Start Date: No linked episodes [facility] Enrollment Status: Not Yet Enrolled Action Taken on [employer] Alert and Outcome of ED Visit: Review ONLY: Admitted to Inpatient Shanta Hanna RN documented in this encounter Plan of Treatment Upcoming Encounters Date Type Department Care Team (Late st Contact Info) Description 06/27/2023 12:30 PM EST [facility] [address] [facility] [place] [address] Emeli Toledo, RN 132 [facility] [place] [address] 06/28/2023 1:00 PM EST Office Visit Palliative Medicine [facility] [address] [place] [address] Valeria Nath MD [address] [place] [phone] 06/29/2023 12:45 PM EST Nurse Only Family Practice [address] [facility] [place] [address] [place] [address] [place], Nurse Fam Prac [address] [place] [address] 06/29/2023 1:00 PM EST Office Visit Family Practice [address] [facility] [place] [address] [place] [address] Angel Quinteros DO [address] [place] [address] 07/06/2023 12:40 PM EST Office Visit Podiatry [facility] [address] [facility] [place] [address] Felicita Copeland DPM 132 [facility] [place] [address] 07/27/2023 12:40 PM EST Office Visit Gastroenterology, [facility] [place] [address] [place], [place] [address]V[place] [phone] Trina Plaza DO 132 [facility] [place] [address] 08/03/2023 1:30 PM EST Office Visit Urology [place] [address] [place] [address] [place] [address] Ryan Cunningham MD 27 [facility] [place] [address] [place] [address] 09/11/2023 2:00 PM EDT Appointment Radiology, [facility] 400 [facility] [place] [phone] 09/11/2023 2:30 PM EDT PulmDiagnostic Pulmonary Function Lab [facility] [place] [address] [place] [address] [place], [place] [address] [place] [address] 09/11/2023 3:00 PM EDT [facility] [place] [address] [place] [phone] Saul Moscoso MD [address] [facility] [place] [address] 10/25/2023 2:40 PM EDT Office Visit Family Practice [facility] 200 [place] [address] Mirza Mcgee III, MD 200 [place] [address] 05/02/2024 1:00 PM EST Office Visit Sleep Disorders, [facility] 400 [facility] [place] [address] Alesha John MD 400 [place] [address] Health Maintenance Due Date Last Done Comments [...] this encounter Medical Devices Implanted Type Area Pipe Out Worker Device Identifier Shelf Expiration Date Model / Serial / Lot Femur Nexgn E Right - [id number] Implanted:Qty: 1 on 05/12/2008 at [place] [facility] Right: Knee [employer] 02/24/2018 [id number] / / [id number] Femur Nexgn E Left - [id number] Implanted:Qty: 1 on 11/19/2008 at [place] [facility] Left: Knee [employer] [id number] / / [id number] Sut Steel 6 M654g - [id number] Implanted:Qty: 6 on 07/11/2011 at [place] [facility] N/A: Chest DO NOT USE 01/09/2016 / / [id number] Akre[employer] A[employer] Micro [employer]ision Lens Mi60l Implanted:Qty: 1 on 11/07/2013 at OR [facility] Right: Eye 06/25/2016 [id number] / [id number] / [id number] documented as of this encounter Additional Health [...] Agen t (per Health Care Power of Tobacco Stemmer Machine document) [email or web address] Adult Child First Alternate Health Care Agent (per Health Care Power of Tobacco Stemmer Machine document) [email or web address] Care Teams Middle School Counselor Relationship Specialty Start Date End Date Angel Quinteros DO [address] [place] [place] [address] PCP - General Family Medicine 06/14/23 documented as of this encounter
--- OUTSIDE RECORDS SUMMARY | 2023-07-04 20:35 | External Medical Summary ---
Author Name Unknown Address Unknown Organization : Laboratory Report Ordering Provider Test Date Status CASSY KENYON 06/26/2023 07:43:42 Final Observation Date Value Abnormality Reference (Units ) Status Glucose Point of Care 06/26/2023 07:43:42 141 Above high normal 70-120 (mg/dL) Final Performing Location
--- OUTSIDE RECORDS SUMMARY | 2023-07-04 20:35 | External Medical Summary ---
Author Name Unknown Address Unknown Organization K1F:LABORATORY [facility] - [address] [place] [address] Laboratory Report Ordering Provider Test Date Status CASSY KENYON 06/26/2023 06:32:00 Final Observation Date Value Abnormality Reference (Units ) Status WBC, Total 06/26/2023 06:32:00 12.10 Above high normal 4.00-10.80 (K/uL) Final RBC 06/26/2023 06:32:00 4.38 4.50-5.25 (M/uL) Final Hemoglobin 06/26/2023 06:32:00 13.6 Below low normal 14.0-16.8 (g/dL) Final HCT 06/26/2023 06:32:00 39.1 Below low normal 40.0-48.4 (%) Final MCV 06/26/2023 06:32:00 89.3 82.0-99.5 (fL) Final MCH 06/26/2023 06:32:00 31.1 27.0-34.0 (pg) Final MCHC 06/26/2023 06:32:00 34.8 32.0-36.0 (g/dL) Final RDW 06/26/2023 06:32:00 13.5 11.5-15.5 (%) Final Platelets 06/26/2023 06:32:00 161 140-400 (K/uL) Final MPV 06/26/2023 06:32:00 11.0 6.6-11.1 (fL) Final Nucleated erythrocytes/100 leukocytes [Ratio] in Blood by Automated count 06/26/2023 06:32:00 0 <=0 (/100 WBCs) Final Performing Location LAB[facility]ATORY [facility] - [address] [place] [address]
--- OUTSIDE RECORDS SUMMARY | 2023-07-04 20:35 | External Medical Summary ---
Author Name Unknown Address Unknown Organization : Laboratory Report Ordering Provider Test Date Status SALVADOR ROOT 06/23/2023 16:54:13 Final Observation Date Value Abnormality Reference (Units ) Status Glucose Point of Care 06/23/2023 16:54:13 125 Above high normal 70-120 (mg/dL) Final Performing Location
--- OUTSIDE RECORDS SUMMARY | 2023-07-04 20:35 | External Medical Summary ---
Author Name Unknown Address Unknown Organization K1F:LABORATORY [facility] - [address] [place] [address] Laboratory Report Ordering Provider Test Date Status JAYDEN LYLES 06/23/2023 11:16:11 Final Observation Date Value Abnormality Reference (Units ) Status Color of Urine by Auto 06/23/2023 11:16:11 Yellow Light Yellow, Yellow, Dark Yellow Final Clarity, Urine 06/23/2023 11:16:11 Clear Clear Final Glucose [Mass/volume] in Urine by Automated test strip 06/23/2023 11:16:11 Negative Negative (mg/dL) Final Bilirubin.total [Presence] in Urine by Automated test strip 06/23/2023 11:16:11 Negative Negative Final Ketones [Mass/volume] in Urine by Automated test strip 06/23/2023 11:16:11 >=80 Abnormal Negative (mg/dL) Final Specific gravity, Urine 06/23/2023 11:16:11 1.011 1.003-1.030 Final Hemoglobin [Presence] in Urine by Automated test strip 06/23/2023 11:16:11 Trace Abnormal Negative Final pH, Urine 06/23/2023 11:16:11 7.0 5.0-7.5 (Units) Final Protein [Mass/volume] in Urine by Automated test strip 06/23/2023 11:16:11 30 Abnormal Negative (mg/dL) Final Urobilinogen [Mass/volume] in Urine by Automated test strip 06/23/2023 11:16:11 1.0 0.2, 1.0 (mg/dL) Final Nitrite [Presence] in Urine by Automated test strip 06/23/2023 11:16:11 Negative Negative Final Leukocyte esterase [Presence] in Urine by Automated test strip 06/23/2023 11:16:11 Negative Negative Final Performing Location LABORATORY [facility] [address] [facility] [place] [address]
--- OUTSIDE RECORDS SUMMARY | 2023-07-04 20:35 | External Medical Summary ---
Author Name Unknown Address Unknown Organization K1F:LABORATORY [facility] - [address] [place] [address] Laboratory Report Ordering Provider Test Date Status ADAL KENYONCASSY 06/25/2023 05:58:00 Final Observation Date Value Abnormality Reference (Units ) Status BUN 06/25/2023 05:58:00 19 6-20 (mg/dL) Final Creatinine 06/25/2023 05:58:00 1.0 0.6-1.2 (mg/dL) Final Glomerular filtration rate/1.73 sq M.predicted [Volume Rate/Area] in Serum, Plasma or Blood by Creatinine-based formula (CKD-EPI) 06/25/2023 05:58:00 77 >=60 (mL/min) Final eGFR is calculated based on the CKD-EPI 2020 equation SODIUM 06/25/2023 05:58:00 139 135-146 (m mol/L) Final Potassium 06/25/2023 05:58:00 4.3 3.5-5.1 (m mol/L) Final Result may be falsely elevat ed due to hemolysis. Cl 06/25/2023 05:58:00 102 98-107 (mm ol/L) Final CO2 06/25/2023 05:58:00 27 22-32 (mmo l/L) Final Anion gap 06/25/2023 05:58:00 10 7-15 (mmol /L) Final Glucose 06/25/2023 05:58:00 136 Above high normal 70 -120 (mg/dL) Final Calcium 06/25/2023 05:58:00 8.3 Below low normal 8.4 -10.2 (mg/dL) Final Performing Location LABORATORY [facility] - [address] [place] [address]
--- OUTSIDE RECORDS SUMMARY | 2023-07-04 20:36 | External Medical Summary ---
Author Name Unknown Address Unknown Organization K1F:LABORATORY [facility] - [address] [place] [address] Laboratory Report Ordering Provider Test Date Status JAYDEN LYLES 06/23/2023 11:07:00 Final Warfarin Therapy
INR: 2 .0-3.0 conventional anticoagulation
INR: 2.5- 3.5 high intensity anticoagulation Observation Date Value Abnormality Reference (Units ) Status PT 06/23/2023 11:07:00 14.6 11.6-15.2 (seconds) Final INR 06/23/2023 11:07:00 1.1 0.8-1.2 Final Performing Location LABORATORY [facility] - [address] [place] [address]
--- OUTSIDE RECORDS SUMMARY | 2023-07-04 20:36 | External Medical Summary ---
Author Name Unknown Address Unknown Organization K1F:LABORATORY [facility] - [facility] [place] [address] [place] [address] Laboratory Report Ordering Provider Test Date Status JAYDEN LYLES 06/23/2023 11:16:11 Final Observation Date Value Abnormality Reference (Units ) Status RBC, Urine 06/23/2023 11:16:11 0-2 0-2 (/HPF) Final WBC, Urine 06/23/2023 11:16:11 0-2 0-2 (/HPF) Final Bacteria [#/area] in Urine sediment by Microscopy high power field 06/23/2023 11:16:11 0-25 0-25 (/HPF) Final Performing Location LABORATORY [facility] - [address] [place] [address]
--- OUTSIDE RECORDS SUMMARY | 2023-07-04 20:36 | External Medical Summary ---
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 Observation Date Value Abnormality Reference (Units ) Status COMMENT 06/22/2023 16:18:44 Rcvd request,slides NIF (msg. To Danette Almaraz To see if slides are in [place]'s office)no reply 06/23/23 Final COMMENT 06/22/2023 16:18:44 Msg to [place] 06/27/23 Final COMMENT 06/22/2023 16:18:44 [place] ordered testing 06/27/23 Final COMMENT 06/22/2023 16:18:44 Testing to be performed in house Final Performing Location LABORATORY [facility] - [address] [place] [address]
--- OUTSIDE RECORDS SUMMARY | 2023-07-04 20:36 | External Medical Summary ---
Author Name Unknown Address Unknown Organization K1F:LABORATORY [facility] - [address] [place] [address] Laboratory Report Ordering Provider Test Date Status JAYDEN LYLES 06/23/2023 10:42:07 Final Observation Date Value Abnormality Reference (Units ) Status WBC, Total 06/23/2023 10:42:07 7.82 4.00-10.80 (K/uL) Final RBC 06/23/2023 10:42:07 4.96 4.50-5.25 (M/uL) Final Hemoglobin 06/23/2023 10:42:07 15.1 14.0-16.8 (g/dL) Final HCT 06/23/2023 10:42:07 43.6 40.0-48.4 (%) Final MCV 06/23/2023 10:42:07 87.9 82.0-99.5 (fL) Final MCH 06/23/2023 10:42:07 30.4 27.0-34.0 (pg) Final MCHC 06/23/2023 10:42:07 34.6 32.0-36.0 (g/dL) Final RDW 06/23/2023 10:42:07 13.5 11.5-15.5 (%) Final Platelets 06/23/2023 10:42:07 165 140-400 (K/uL) Final MPV 06/23/2023 10:42:07 10.3 6.6-11.1 (fL) Final Nucleated erythrocytes/100 leukocytes [Ratio] in Blood by Automated count 06/23/2023 10:42:07 0 <=0 (/100 WBCs) Final Performing Location LABORATORY [facility] - [address] [place] [address]
--- OUTSIDE RECORDS SUMMARY | 2023-07-04 20:36 | External Medical Summary ---
Author Name Unknown Address Unknown Organization K1F:LABORATORY [facility] - [address] [place] [address] Laboratory Report Ordering Provider Test Date Status TRUPTIJAYDEN 06/23/2023 10:42:07 Final Less than 0.5 ng/mL: Low ris k for progression to sepsis. Review patients condition for localized infections.

0.5 to 2.0 ng/mL: Intermediate risk for progresion to sepsis. Review underlying conditions. Recommend repeat PCT after 6 hours has elapsed.

Greater than 2.0 ng/mL: high risk for progression to sepsis unless other causes are known. Observation Date Value Abnormality Reference (Units ) Status Procalcitonin [Mass/volume] in Serum or Plasma by Immunoassay 06/23/2023 10:42:07 >100.00 Above high normal <0.10 (ng/mL) Final Performing Location LABORATORY [facility] - [address] [place] [address]
--- OUTSIDE RECORDS SUMMARY | 2023-07-04 20:36 | External Medical Summary ---
Author Name Unknown Address Unknown Organization K1F:LABORATORY [facility] - [address] [place] [address] Laboratory Report Ordering Provider Test Date Status JAYDEN LYLES 06/23/2023 10:42:07 Final Observation Date Value Abnormality Reference (Units ) Status SYNC LEUKOCYTES IN BLOOD BY AUTOMATED COUNT 06/23/2023 10:42:07 7.82 4.00-10.80 (K/uL) Final Segs 06/23/2023 10:42:07 83.1 Above high normal 40.0-75.0 (%) Final Lymphs % 06/23/2023 10:42:07 7.0 Below low normal 18.0-42.0 (%) Final Monos 06/23/2023 10:42:07 9.0 1.0-11.0 (%) Final Eosinophils 06/23/2023 10:42:07 0.1 0.0-6.0 (%) Final Basos 06/23/2023 10:42:07 0.3 0.0-2.0 (%) Final Immature Granulocyte, Percent 06/23/2023 10:42:07 0.5 0.0-2.0 (%) Final Absolute Segs 06/23/2023 10:42:07 6.50 1.80-7.70 (K/uL) Final Lymphs, absolute 06/23/2023 10:42:07 0.55 Below low normal 1.00-4.80 (K/ul) Final Monos, Abs 06/23/2023 10:42:07 0.70 0.00-1.10 (K/uL) Final Eos, Abs 06/23/2023 10:42:07 0.01 0.00-0.70 (K/uL) Final Basos, Abs 06/23/2023 10:42:07 0.02 0.00-0.20 (K/uL) Final Immature Granulocytes, Number 06/23/2023 10:42:07 0.04 0.00-0.20 (K/uL) Final Performing Location LABORATORY [facility] - [facility] [address] [place] [address]
--- OUTSIDE RECORDS SUMMARY | 2023-07-04 20:36 | External Medical Summary ---
Author Name Unknown Address Unknown Organization K1F:LABORATORY [facility] - [address] [place] [address] Laboratory Report Ordering Provider Test Date Status JAYDEN LYLES 06/23/2023 10:42:07 Final Observation Date Value Abnormality Reference (Units ) Status Magnesium 06/23/2023 10:42:07 1.6 1.5-2.6 (m g/dL) Final Performing Location LABORATORY [facility] - [address] [place] [address]
--- OUTSIDE RECORDS SUMMARY | 2023-07-04 20:36 | External Medical Summary | Summary of Care ---
Author Name Unknown Organization [facility] Address [address] [place] [address] Phone [phone] Care Team Providers Care Levers Lace Machine Operator Name Role Phone Angel Quinteros DO Primary Care Provider + [phone] Reason for Visit * Reason Onset Date Comments [facility]: Acute 06/22/2023 Encounter Details Date Type Department Care Team (Late st Contact Info) Description 06/22/2023 Telephone [facility] [address] [place] [address] Region, Nurse [address] [place] [address] [facility]: Acute Allergies Active Allergy Reactions Criticality Noted Date Comments Amoxicillin Rash 09/27/2005 At time of knee replacement Oxycodone Other (Please comment) 10/11/2012 Severe mental change Oxycodone-Acetaminophe n Other (Please comment) 03/15/2010 Severe mental change documented as of this encounter (statuses as of 06/22/2023) Medications Medication Sig Dispensed Refills Start Date End Date Status DIURETIC TITRATION PLAN If no improvement on day 3, contact heart failure managing provider or [facility] case sealer 1 Each 0 [...] as of this encounter (statuses as of 06/22/2023) Active Problems Problem Noted Date Diagnosed Date Hypophosphatemia 06/10/2023 UTI (urinary tract infection) 06/10/2023 Intractable nausea and vomiting 05/21/2023 Uncontrolled pain 05/21/2023 Degenerative lumbar spinal stenosis 05/21/2023 DNR (do not resuscitate) 05/21/2023 Constipation 05/21/2023 [place] (hard of hearing) 05/21/2023 Poor vision 05/21/2023 [...] as of this encounter (statuses as of 06/22/2023) Resolved Problems Problem Noted Date Diagnosed Date [...] lower extremities 11/24/2008 09/22/2015 Overview: seen at [facility] ER Anemia 05/13/2008 03/21/2017 Osteoarthritis of [...] as of this encounter (statuses as of 06/22/2023) Immunizations Name Administration Dates Next Due COVID-19 [...] Yes 06/10/2023 documented as of this encounter Miscellaneous Notes * Telephone Encounter - Johana Ureña RN - 06/22/2023 1:16 PM EST [facility] [employer] websphere portal developer Acute Call Date: 06/22/2023 Time: 1:16 PM Name: Dedrick Peters : 1935 Caller: HPI: Dedrick Peters is a 88 year old male whose and CG is calling [facility] stating: "He is so sick and I can't get his meds into him, what do I do about that?" Pt has been nauseated moreso than baseline -all morning. CG was abole to get Zofran under his tongue andhe was able to take Ultram this am. She reports she could not get him to swallow the other meds he takes because he is nauseated and vomited. Pt has hx of prostae ca with bone mets, Barretts esophagus, intractable N/V. He also recently had UTI 06/10/23 and pt collected another sample today to check for infection. She reports he has polyuria and is voiding frequently. She was advised by prior PCP to keep a 'watch' on his urine for s/s UTI. She is taking specimen to lab now. Pt instructed on pt meds- compazine, Zofran, Reglan. She reports increase in generalized body aches and pain. Pt takes Ultram. He is scheduled for HV tomorrow with Amador Moreno. -CG will discuss this with Amador. 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 Pt cannot take po meds. Patient prescribed oxygen? Yes, 1.5-2L/min Patient has been ordered DME equipment (assistive devices, respiratory equipment, etc.): Yes Describe DME devices: CPAP, O2,Neb Patient is using DME device as directed: Yes Medication Reconciliation: (See medication list) Received flu shot this season: Yes Taking medication as ordered: No, Unable to swallow pilss due to nausea Medications ordered/taking to treat reason for call: Yes, PRN medication(s) Compazine, Zofran, reglan Heart failure symptoms: No COPD exacerbation symptoms: No Reinforcement Education: Discuss with Amador the possibility of getting meds in liquid form; Also talk to Amador about better pain controil. Urine specimen to lab Will place 24 hr FCC to check on urine results. PCP visit tomorrow. Call [facility] with worsening sxs Treatment/Plan: (need to report) Level of call: Acute Appointment scheduled for same day: No Provider Name: Amadorgodfrey Smithshae seeing pt 06/23/23. 24 hr FCC Routing to Amador and Care team for further recommendations. Johana Ureña RN [facility] Intake Triage Coordinator [phone] documented in this encounter Plan of Treatment Upcoming Encounters Date Type Department Care Team (Late st Contact Info) Description 06/23/2023 9:00 AM EST Home Visit [facility], [facility] [address] [place] [address] Amador Moreno PA-C [address] [place] [address] 06/24/2023 10:00 AM EST Scheduled Telephone [facility], [facility] [address] [place] [address] [facility], Nurse [facility] 132 [facility] [place] [address] 06/27/2023 12:30 PM EST Home Visit [facility], [facility] [address] [place] [address] Emeli Toledo RN [address] [place] [address] 06/28/2023 1:00 PM EST Office Visit Palliative Medicine [facility] [address] [facility] [place] [address] Valeria Nath MD [address] [place] [address] [place] [address] 06/29/2023 12:45 PM EST Nurse Only Family Practice [address] [place] [address] [address] [place] [address] Nurse Deangelo Fam Prac [address] [place] [address] 06/29/2023 1:00 PM EST Office Visit Family Practice [address], [address] [place] [address] Angel Quinteros DO [address] [place] [address] 07/06/2023 12:40 PM EST Office Visit Podiatry [facility] [address] [place] [address] Felicita Copeland DPM [address] [place] [address] 07/27/2023 12:40 PM EST Office Visit Gastroenterology, [facility] [phone] Trina Plaza, [address] [place] [address] 08/03/2023 1:30 PM EST Office Visit Urology [facility] [address] [place] [address] [place] [address] Ryan Cunningham MD [address] [place] [address] [place] [address] 09/11/2023 2:00 PM EDT Appointment Radiology, [address] [place] [phone] 09/11/2023 2:30 PM EDT PulmDiagnostic Pulmonary Function Lab [facility] [address] [place] [address] [place], [address] [place] [address] 09/11/2023 3:00 PM EDT Office Visit Pulmonary Medicine [facility] [address] [place] [phone] Saul Moscoso MD [address] [place] [address] 10/25/2023 2:40 PM EDT Office Visit Family Practice [facility] 200 [facility], [place] [address] Mirza Mcgee III, MD [address] [facility] [place] [address] 05/02/2024 1:00 PM EST Office Visit Sleep Disorders, [facility] [address] [place] [address] Alesha John MD [address] [place] [address] Pending Results Name Type Priority Associated Diagnoses Date /Time URINALYSIS, REFLEX TO CULTURE (NOT FOR NEUTROPENIC PATIENTS) Lab Routine Acute cystitis without hematuria 06/22/2023 2:31 PM EST Scheduled Orders Name Type Priority Associated Diagnoses Orde r Schedule URINALYSIS, REFLEX TO CULTURE (NOT FOR NEUTROPENIC PATIENTS) Lab Routine Acute cystitis without hematuria Expected: 06/22/2023, Expires: 06/22/2024 Health Maintenance Due Date Last Done Comments [...] Screening 02/03/2024 02/02/2023 CKD PHOS USE SMARTSET 98028 06/12/202405/26, 06/11/2023, 06/10/2023, Additional history exists CKD HGB USE SMARTSET 55313 06/13/202406/13, 06/13/2023, 06/12/2023, Additional history exists O2 ASSESSMENT COMPLETED IN PAST YEAR FOR COPD 06/15/2024 06/15/2023 Pneumococcal Vaccine: 65+ Years Completed 09/22/2015, 08/21/2001 VITAMIN D LEVEL ONCE IN A LIFETIME-USE SMARTSET# 35961 Completed 10/26/2022, 10/11/2021, 01/01/2019, Additional history exists Influenza Vaccine (FLU shot) Completed , 03/31/2022, 03/23/2021, Additional history exists GARDASIL-HPV IMMUNIZATION SERIES Aged Out No longer eligible based on patient's age to complete this topic MENINGOCOCCAL (MENACTRA/MENVEO) Aged Out No longer eligible based on patient's age to complete this topic documented as of this encounter Medical Devices Implanted Type Area Senior Administrative Services Officer Device Identifier Shelf Expiration Date Model / Serial / Lot Femur Nexgn E Right - [id number] Implanted:Qty: 1 on 05/12/2008 at OR [facility] Right: Knee [employer] 02/24/2018 [id number] / / [id number] Femur Nexgn E Left - [id number] Implanted:Qty: 1 on 11/19/2008 at OR [facility] Left: Knee [employer] [id number] -[id number] / / [id number] Sut Steel 6 M654g - [id number] Implanted:Qty: 6 on 07/11/2011 at OR [facility] N/A: Chest DO NOT USE 01/09/2016 / / [id number] Akreos Ao Micro Incision Lens [id number] Implanted:Qty: 1 on 11/07/2013 at OR [facility] Right: Eye 06/25/2016 [id number] / [id number] / [id number] documented as of this encounter Visit Diagnoses Diagnosis Acute cystitis without hematuria- Primary Acute cystitis documented in this encounter Advance Directives Latest [...] the patient have Health Care Power of Biology Manager? No Healthcare Agents on File Name Relationship Healthcare Agent Relationship Communication Soledad Peters Spouse Health Care Agen t (per Health Care Power of Biology Manager document) [email or web address] Huma Hernández Adult Child First Alternate Health Care Agent (per Health Care Power of Biology Manager document) [email or web address] Care Teams Levers Lace Machine Operator Relationship Specialty Start Date End Date Angel Quinteros DO [address] [place] [address] PCP - General Family Medicine 06/14/23 documented as of this encounter
--- OUTSIDE RECORDS SUMMARY | 2023-07-04 20:36 | External Medical Summary | Summary of Care ---
Author Name Unknown Organization [facility] Address [address] [place] [address] Phone [phone] Care Team Providers Care Car Groomer Name Role Phone Angel Quinteros DO Primary Care Provider Reason for Visit * Reason Onset Date Comments Scheduling 06/16/2023 Encounter Details Date Type Department Care Team (Late st Contact Info) Description 06/16/2023 Telephone Family Practice [address] [facility], [place] [address] [place] [address] Angel Quinteros DO [address] [place] [address] Scheduling Allergies Active Allergy Reactions Criticality Noted Date Comments Amoxicillin Rash 09/27/2005 At time of knee replacement Oxycodone Other (Please comment) 10/11/2012 Severe mental change Oxycodone-Acetaminophe n Other (Please comment) 03/15/2010 Severe mental change documented as of this encounter (statuses as of 06/16/2023) Medications Medication Sig Dispensed Refills Start Date End Date Status DIURETIC TITRATION PLAN If no improvement on day 3, contact heart failure managing provider or [facility] case packer 1 Each 0 01/30/2019 Active aspirin enteric [...] for Nausea. 20 Tablet 1 06/13/2023 Active Nitrofurantoin Monohyd Macro 100 MG Oral Capsule (Macrobid) Take 1 Capsule by mouth in the morning and 1 Capsule before bedtime - do all this for 4 days - take with food. 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 current use of systemic steroids 10/18 History [...] as of this encounter (statuses as of 06/16/2023) Resolved Problems Problem Noted Date Diagnosed Date [...] lower extremities 11/24/2008 09/22/2015 Overview: seen at [facility] Anemia 05/13/2008 03/21/2017 Osteoarthritis of knee [...] as of this encounter (statuses as of 06/16/2023) Immunizations Name Administration Dates Next Due COVID-19 mRNA, LNP-s, No Pre serve, 2-Dose Series ([facility]) 08/30/2020,08/02/2020 Pneumococcal Conjugate Vacc, 13 Valent (Prevnar) [...] Telephone Encounter - Amalia Ramos OSA - 06/16/2023 9:51 AM EST Called to schedule patient here at [address] [place]. No answer. LMOM for a return call to schedule. documented in this encounter Plan of Treatment Upcoming Encounters Date Type Department Care Team (Late st Contact Info) Description 06/20/2023 11:00 AM EST Office Visit Family Practice [facility] [address] [facility] [place] [address] Mirza Mcgee III, MD [facility] [address] 06/23/2023 9:00 AM EST [facility] [address] [facility] [place] [address] Amador Moreno PA-C [facility] [place] [address] 06/27/2023 12:30 PM EST [facility] Visit [facility] [address] [facility] [place] [address] Emeli Toledo RN 132 [facility] [place] [address] 06/28/2023 1:00 PM EST Office Visit Palliative Medicine [facility] 200 [facility], [place] [address] Valeria Nath MD [address] [place], [place] [address] [address] 07/06/2023 12:40 PM EST Office Visit Podiatry [facility] [address] [facility] [place] [address] Felicita Copeland DPM [address] [place] [address] 07/27/2023 12:40 PM EST Office Visit Gastroenterology, [facility] [place] [address] [facility] [place] [address] Trina Plaza DO 132 [facility] [place] [address] 08/03/2023 1:30 PM EST Office Visit Urology [facility] [place] [address] [facility] [place] [address] [place] [address] Ryna Cunningham MD [address] [place] [address] [place] [address] 09/11/2023 2:00 PM EDT Appointment Radiology, [facility] [phone] 09/11/2023 2:30 PM EDT PulmDiagnostic Pulmonary Function Lab [facility] [address] [place] [address] [place], [address] [place] [address] 09/11/2023 3:00 PM EDT Office Visit Pulmonary Medicine [facility] [place] [address] [place] [phone] Saul Moscoso MD [address] [facility] [place] [address] 10/25/2023 2:40 PM EDT Office Visit [facility] [address] [facility] [place] [address] Mirza Mcgee III, MD [address] [facility] [place] [address] 05/02/2024 1:00 PM EST Office Visit Sleep Disorders, [address] [place] [address] Alesha John MD [address] [place], [place] [address], [place] [phone] Health Maintenance Due Date Last Done Comments [...] FOR OSTEOPOROSIS (REFER TO SMARTSET #1146) 06/01/2023 HbA1c 10/14/2023 04/14/2023, 0508/2022, 06/10/2022, Additional history exists Albumin/Creatinine Ratio 10/27/2023 10/26/2022, 02/25 DXA Scan 11/03/2023 11/02/2021, 07/27, 04/11/2017, Additional history exists Depression Screening 02/03/2024 02/02/2023 CKD PHOS USE SMARTSET 81539 06/12/202405/26, 06/11/2023, 06/10/2023, Additional history exists CKD HGB USE SMARTSET 96396 06/13/202406/13, 06/13/2023, 06/12/2023, Additional history exists O2 ASSESSMENT COMPLETED IN PAST YEAR FOR COPD 06/15/2024 06/15/2023 Pneumococcal Vaccine: 65+ Years Completed 09/22/2015, 08/21/2001 VITAMIN D LEVEL ONCE IN A LIFETIME-USE SMARTSET# 46539 Completed 10/26/2022, 10/11/2021, 01/01/2019, Additional history exists Influenza Vaccine (FLU shot) Completed , 03/31/2022, 03/23/2021, Additional history exists GARDASIL-HPV IMMUNIZATION SERIES Aged Out No longer eligible based on patient's age to complete this topic MENINGOCOCCAL (MENACTRA/MENVEO) Aged Out No longer eligible based on patient's age to complete this topic documented as of this encounter Medical Devices Implanted Type Area Spud Sorter Device Identifier Shelf Expiration Date Model / Serial / Lot Femur Nexgn E Right - [id number] Implanted:Qty: 1 on 05/12/2008 at OR [facility] Right: Knee [employer] 02/24/2018 00-5996-015 -[id number] / / [id number] Femur Nexgn E Left - [id number] Implanted:Qty: 1 on 11/19/2008 at OR [facility] Left: Knee [employer] [id number] -[id number] / / [id number] Sut Steel 6 M654g - [id number] Implanted:Qty: 6 on 07/11/2011 at OR [facility] N/A: Chest DO NOT USE 01/09/2016 / / [id number] Akre[employer] Ao Micro Incision Lens Mi60l Implanted:Qty: 1 on 11/07/2013 at OR [facility] Right: Eye 06/25/2016 [id number] / [id number] / [id number] documented as of this encounter Advance Directives [...] the patient have Health Care Power of Cement Gun Operator? No Healthcare Agents on File Name Relationship Healthcare Agent Relationship Communication Soledad Peters Spouse Health Care Agen t (per Health Care Power of Cement Gun Operator document) [email or web address] Huma Hernández Adult Child First Alternate Health Care Agent (per Health Care Power of Cement Gun Operator document) Care Teams Car Groomer Relationship Specialty Start Date End Date Angel Quinteros DO [address] [phone] PCP - General Family Medicine 06/14/23 documented as of this encounter
--- OUTSIDE RECORDS SUMMARY | 2023-07-04 20:36 | External Medical Summary ---
Author Name Unknown Address Unknown Organization K1F:LABORATORY [facility] - [address] [place] [address] Laboratory Report Ordering Provider Test Date Status JAYDEN LYLES 06/23/2023 10:42:07 Final Observation Date Value Abnormality Reference (Units ) Status Lipase 06/23/2023 10:42:07 39 13-60 (U/L ) Final Performing Location LABORATORY [facility] - [address] [place] [address]
--- OUTSIDE RECORDS SUMMARY | 2023-07-04 20:36 | External Medical Summary ---
Author Name Unknown Address Unknown Organization K1F:LABORATORY [facility] - [address] [facility] [place] [address] Laboratory Report Ordering Provider Test Date Status JAYDEN LYLES 06/23/2023 10:43:12 Final ADMITTED patient Observation Date Value Abnormality Reference (Units ) Status Adenovirus DNA [Presence] in Nasopharynx by RICHARD with non-probe detection 06/23/2023 10:43:12 Negative Negative Final Human coronavirus 229E RNA [Presence] in Nasopharynx by RICHARD with non-probe detection 06/23/2023 10:43:12 Negative Negative Final Human coronavirus HKU1 RNA [Presence] in Nasopharynx by RICHARD with non-probe detection 06/23/2023 10:43:12 Negative Negative Final Human coronavirus NL63 RNA [Presence] in Nasopharynx by RICHARD with non-probe detection 06/23/2023 10:43:12 Negative Negative Final Human coronavirus OC43 RNA [Presence] in Nasopharynx by RICHADR with non-probe detection 06/23/2023 10:43:12 Negative Negative Final SARS-CoV-2 (COVID-19) RNA [Presence] in Nasopharynx by RICHARD with non-probe detection 06/23/2023 10:43:12 Negative Negative Final Human metapneumovirus RNA [Presence] in Nasopharynx by RICHARD with non-probe detection 06/23/2023 10:43:12 Negative Negative Final Rhinovirus+Enterovirus RNA [Presence] in Nasopharynx by RICHARD with non-probe detection 06/23/2023 10:43:12 Negative Negative Final Influenza virus A RNA [Presence] in Nasopharynx by RICHARD with non-probe detection 06/23/2023 10:43:12 Negative Negative Final Influenza virus B RNA [Presence] in Nasopharynx by RICHARD with non-probe detection 06/23/2023 10:43:12 Negative Negative Final Parainfluenza virus 1 RNA [Presence] in Nasopharynx by RICHARD with non-probe detection 06/23/2023 10:43:12 Negative Negative Final Parainfluenza virus 2 RNA [Presence] in Nasopharynx by RICHARD with non-probe detection 06/23/2023 10:43:12 Negative Negative Final Parainfluenza virus 3 RNA [Presence] in Nasopharynx by RICHARD with non-probe detection 06/23/2023 10:43:12 Negative Negative Final Parainfluenza virus 4 RNA [Presence] in Nasopharynx by RICHARD with non-probe detection 06/23/2023 10:43:12 Negative Negative Final Respiratory syncytial virus RNA [Presence] in Nasopharynx by RICHARD with non-probe detection 06/23/2023 10:43:12 Negative Negative Final Bordetella pertussis.pertussis toxin promoter region [Presence] in Nasopharynx by RICHARD with non-probe detection 06/23/2023 10:43:12 Negative Negative Final Chlamydophila pneumoniae DNA [Presence] in Nasopharynx by RICHARD with non-probe detection 06/23/2023 10:43:12 Negative Negative Final Mycoplasma pneumoniae DNA [Presence] in Nasopharynx by RICHARD with non-probe detection 06/23/2023 10:43:12 Negative Negative Final Bordetella parapertussis [id number] DNA [Presence] in Nasopharynx by RICHARD with non-probe detection 06/23/2023 10:43:12 Negative Negative Final
The primers that detect Rhinovirus may cross react with some Enterorviruses. The validation of bronchial specimens, tracheal aspirates, and throats for this assay was developed and performance characteristics determined by [facility]. The validation of alternate specimen types has not been cleared or approved by the U.S. Food and Drug Administration (FDA). It has been determined that such clearance or approval is not necessary. [address] [place] [address]
--- OUTSIDE RECORDS SUMMARY | 2023-07-04 20:36 | External Medical Summary | Summary of Care ---
Author Name Unknown Organization [facility] Address [address] [place] [address] Phone [phone] Care Team Providers Care Green Meat Grader Name Role Phone Angel Quinteros DO Primary Care Provider [phone] Reason for Visit * Reason Onset Date Comments [facility]: Acute 06/22/2023 Encounter Details Date Type Department Care Team (Late st Contact Info) Description 06/22/2023 Telephone Family Practice [address] [facility] [place] [address] [place] [address] Angel Quinteros DO [address] [place] [address] [facility]: Acute Allergies Active Allergy [...] failure managing provider or [facility] welfare case worker 1 Each 0 01/30/2019 Active aspirin enteric [...] DNR (do not resuscitate) 05/21/2023 Constipation 05/21/2023 KEWEENAW (hard of hearing) 05/21/2023 Poor vision 05/21/2023 [...] vein thrombosis) 09/22/2015 PMR (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) 10/18/2012 [facility] current use of systemic steroids 04/25 /2013 History of Hodgkin's disease 02/19/2012 Gastroesophageal reflux [...] lower extremities 11/24/2008 09/22/2015 Overview: seen at [facility] ER Anemia 05/13/2008 03/21/2017 Osteoarthritis of [...] encounter Miscellaneous Notes * Telephone Encounter - Angel Quinteros DO - 06/22/2023 3:22 PM EST Attempt call x2. No answer. Spoke with [facility] home. Will continue to follow. documented in this encounter Plan of Treatment Upcoming Encounters Date Type Department Care Team (Late st Contact Info) Description 06/23/2023 9:00 AM EST Home Visit [facility], [facility] [address] [facility] [place] [address] Amador Moreno PA-C [address] [place] [address] 06/24/2023 10:00 AM EST Scheduled Telephone [facility], [facility] [address] [facility] [place] [address] [facility], Nurse [facility] [address] [facility] [place] [address] 06/27/2023 12:30 PM EST Home Visit [facility], [facility] [address] [facility] [place] [address] Emeli Toledo RN [facility] [place] [address] 06/28/2023 1:00 PM EST Office Visit Palliative Medicine [facility] [address] [place] [address] Valeria Nath MD [address] [place] [phone] 06/29/2023 12:45 PM EST Nurse Only Family Practice [address] [place] [address] [place] [address] [place] [address] Nurse Deangelo [facility] Prac [address] [place] [address] [address] [place] [address] 06/29/2023 1:00 PM EST Office Visit Family Practice [facility] [place] [address] [place] [address] Angel Quinteros DO [address] [place] [address] 07/06/2023 12:40 PM EST Office Visit Podiatry [facility] [address] [place] [address] Felicita Copeland DPM [address] [place] [address] 07/27/2023 12:40 PM EST Office Visit Gastroenterology, [facility] [phone] Trina Plaza DO [address] [place] [address] 08/03/2023 1:30 PM EST Office Visit Urology [place] [address] [place] [address] [place] [address] Ryan Cunningham MD [address] [place] [address] [place] [address] 09/11/2023 2:00 PM EDT Appointment Radiology, [address] [place] [phone] 09/11/2023 2:30 PM EDT PulmDiagnostic Pulmonary Function Lab Harry Rowley [place] [address] [place] [address] [place], Pft [address] [place] [address] 09/11/2023 3:00 PM EDT Office Visit Pulmonary Medicine Nora Rivera [address] [place] [phone] Saul Moscoso MD [address] [place] [address] 10/25/2023 2:40 PM EDT Office Visit [facility] 200 [facility] [place] [address] Mirza Mcgee III, MD 200 [facility] [place] [address] 05/02/2024 1:00 PM EST Office Visit Sleep Disorders, [facility] [address] [place] [phone] Alesha John MD [address] [place] [address] Health Maintenance Due Date Last Done [...] Screening 02/03/2024 02/02/2023 CKD PHOS USE SMARTSET 12989 06/12/202405/26, 06/11/2023, 06/10/2023, Additional history exists CKD HGB USE SMARTSET 71272 06/13/202406/13, 06/13/2023, 06/12/2023, Additional history exists O2 ASSESSMENT COMPLETED IN PAST YEAR FOR COPD 06/15/2024 06/15/2023 Pneumococcal Vaccine: 65+ Years Completed 09/22/2015, 08/21/2001 VITAMIN D LEVEL ONCE IN A LIFETIME-USE SMARTSET# 36902 Completed 10/26/2022, 10/11/2021, 01/01/2019, Additional history exists Influenza Vaccine (FLU shot) Completed , 03/31/2022, 03/23/2021, Additional history exists GARDASIL-HPV IMMUNIZATION SERIES Aged Out No longer eligible based on patient's age to complete this topic MENINGOCOCCAL (MENACTRA/MENVEO) Aged Out No longer eligible based on patient's age to complete this topic documented as of this encounter Medical Devices Implanted Type Area Auctioneer Automobile Device Identifier Shelf Expiration Date Model / Serial / Lot Femur Nexgn E Right - [id number] Implanted:Qty: 1 on 05/12/2008 at OR [facility] Right: Knee [employer] 02/24/2018 [id number] -[id number] / / [id number] Femur Nexgn E Left - [id number] Implanted:Qty: 1 on 11/19/2008 at OR [facility] Left: Knee [employer] 00-5996-015 -[id number] / / [id number] Sut Steel 6 M654g - [id number] Implanted:Qty: 6 on 07/11/2011 at OR [facility] N/A: Chest DO NOT USE 01/09/2016 / / [id number] Akreos Ao Micro Incision Lens [id number] Implanted:Qty: 1 on 11/07/2013 at OR [facility] Right: Eye 06/25/2016 [id number] / [id number] / [id number] documented as of this encounter Advance Directives [...] Code 05/21/2019 3:50 PM 05/21/2019 3:50 PM Th is order reflects the patients wishes and were [...] the patient have Health Care Power of Tavern Operator? No Healthcare Agents on File Name Relationship Healthcare Agent Relationship Communication Soledad Peters Spouse Health Care Agen t (per Health Care Power of Tavern Operator document) [email or web address] Huma Hernández Adult Child First Alternate Health Care Agent (per Health Care Power of Tavern Operator document) [email or web address] Care Teams Green Meat Grader Relationship Specialty Start Date End Date Angel Quinteros DO [address] [place] [address] PCP - General Family Medicine 06/14/23 documented as of this encounter
--- OUTSIDE RECORDS SUMMARY | 2023-07-04 20:36 | External Medical Summary ---
Author Name Unknown Address Unknown Organization K1F:[facility] - [address] [place] [address] Laboratory Report Ordering Provider Test Date Status ROCAEL LYLESGARTH 06/23/2023 10:42:07 Final Observation Date Value Abnormality Reference (Units ) Status BUN 06/23/2023 10:42:07 10 6-20 (mg/dL) Final Creatinine 06/23/2023 10:42:07 0.7 0.6-1.2 (mg/dL) Final Glomerular filtration rate/1.73 sq M.predicted [Volume Rate/Area] in Serum, Plasma or Blood by Creatinine-based formula (CKD-EPI) 06/23/2023 10:42:07 88 >=60 (mL/min) Final eGFR is calculated based on the CKD-EPI 2020 equation SODIUM 06/23/2023 10:42:07 140 135-146 (m mol/L) Final Potassium 06/23/2023 10:42:07 2.9 Below low normal 3.5 -5.1 (mmol/L) Final Cl 06/23/2023 10:42:07 99 98-107 (mm ol/L) Final CO2 06/23/2023 10:42:07 25 22-32 (mmo l/L) Final Anion gap 06/23/2023 10:42:07 16 Above high normal 7- 15 (mmol/L) Final Glucose 06/23/2023 10:42:07 120 70-120 (mg /dL) Final Albumin 06/23/2023 10:42:07 3.8 3.8-5.0 (g /dL) Final AST (Aspartate aminotransferase) 06/23/2023 10:42:07 62 Above high normal 10-50 (U/L) Final Alk Phos 06/23/2023 10:42:07 192 Above high normal 35 -130 (U/L) Final Bilirubin, Total 06/23/2023 10:42:07 1.0 <=1 .2 (mg/dL) Final Calcium 06/23/2023 10:42:07 8.8 8.4-10.2 ( mg/dL) Final Protein 06/23/2023 10:42:07 6.7 6.0-8.3 (g /dL) Final ALT (Alanine aminotransferase) 06/23/2023 10:42:07 35 10-50 (U/L) Peter simons Performing Location LABORATORY [address] [place] [address]
--- OUTSIDE RECORDS SUMMARY | 2023-07-04 20:36 | External Medical Summary | Summary of Care ---
Author Name Unknown Organization [facility] Address [address] [place] [address] Phone [phone] Care Team Providers Care Fuel Quality Tech Name Role Phone Angel Quinteros DO Primary Care Provider + [phone] Reason for Visit * Reason Onset Date Comments [facility]: Acute 06/22/2023 Encounter Details Date Type Department Care Team (Late st Contact Info) Description 06/22/2023 Telephone [facility], [facility] [address] [place] [address] Region, Nurse [address] [place] [address] [facility]: [...] failure managing provider or [facility] family independence case manager 1 Each 0 01/30/2019 Active [...] DNR (do not resuscitate) 05/21/2023 Constipation 05/21/2023 NEZ PERCE (hard of hearing) 05/21/2023 Poor vision 05/21/2023 [...] vein thrombosis) 09/22/2015 PMR (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) 10/18/2012 skilled nursing current use of systemic steroids 10/18 History [...] lower extremities 11/24/2008 09/22/2015 Overview: seen at [facility] ER Anemia 05/13/2008 03/21/2017 Osteoarthritis [...] 06/22/2023 1:16 PM EST [facility] index editor Acute Call Date: 06/22/2023 Time: 1:16 PM Name: Dedrick Peters : 1935 Caller: HPI: Dedrick Peters is a 88 year old male whose and CG is calling [facility] Intake stating: "He is so [...] on urine results. PCP visit tomorrow. Call [facility] with worsening sxs Treatment/Plan: (need to report) Level of call: Acute Appointment scheduled for same day: No Provider Name: Amadorgodfrey Smithshae seeing pt 06/23/23. 24 hr FCC Routing to Amador and Care team for further recommendations. Johana Ureña RN [facility] Intake Triage Coordinator [phone] documented in this encounter Plan of Treatment Upcoming Encounters Date Type Department Care Team (Late st Contact Info) Description 06/23/2023 9:00 AM EST Home Visit [facility], [facility] [address] [place] [address] Amador Moreno PA-C [address] [place] [address] 06/24/2023 10:00 AM EST Scheduled Telephone [facility], [facility] [address] [place] [address] [facility], Nurse [facility] 132 [facility] [place] [address] 06/27/2023 12:30 PM EST Home Visit [facility], [facility] [address] [place] [address] Emeli Toledo RN [address] [place] [address] 06/28/2023 1:00 PM EST Office Visit Palliative Medicine [facility] 200 [place] [address] Valeria Nath MD [address] [place] [address] [place] [address] 06/29/2023 12:45 PM EST Nurse Only Family Practice [address] [place] [address] [address] [place] [address] Nurse Deangelo Fam Prac [address] [place] [address] 06/29/2023 1:00 PM EST Office Visit Family Practice [address], [place] [address] [place] [address] Angel Quinteros DO [address] [place] [address] 07/06/2023 12:40 PM EST Office Visit Podiatry [facility] [address] [place] [address] Felicita Copeland DPM [address] [place] [address] 07/27/2023 12:40 PM EST Office Visit Gastroenterology, [facility] 310 [facility] [phone] Trina Plaza, [address] [place] [address] 08/03/2023 1:30 PM EST Office Visit Urology [facility] [address] [place] [address] [place] [address] Ryan Cunningham MD [address] [place] [address] [place] [address] 09/11/2023 2:00 PM EDT Appointment Radiology, [address] [place] [phone] 09/11/2023 2:30 PM EDT PulmDiagnostic Pulmonary Function Lab [facility] [address] [place] [address] [place], [address] [address] 09/11/2023 3:00 PM EDT Office Visit Pulmonary Medicine [facility] [address] [place] [phone] Saul Moscoso MD [address] [place] [address] 10/25/2023 2:40 PM EDT Office Visit Family Practice [facility] 200 [facility], [place] [address] Mirza Mcgee III, MD 200 [facility] [place] [address] 05/02/2024 1:00 PM EST Office Visit Sleep Disorders, [facility] 400 [place] [address] Alesha John MD 400 [place] [address] Scheduled Orders Name Type Priority Associated Diagnoses [...] TO RESISTANT HTN 06/17/2023 HbA1c 10/14/2023 04/14/2023, 08/2022, 06/10/2022, Additional history exists Albumin/Creatinine Ratio 10/27/2023 10/26/2022, 02/25 DXA Scan 11/03/2023 11/02/2021, 07/27, 04/11/2017, Additional history exists Depression Screening 02/03/2024 02/02/2023 CKD PHOS USE SMARTSET 25237 06/12/202405/26, 06/11/2023, 06/10/2023, Additional history exists CKD HGB USE SMARTSET 01193 06/13/202406/13, 06/13/2023, 06/12/2023, Additional history exists O2 ASSESSMENT COMPLETED IN PAST YEAR FOR COPD 06/15/2024 06/15/2023 Pneumococcal Vaccine: 65+ Years Completed 09/22/2015, 08/21/2001 VITAMIN D LEVEL ONCE IN A LIFETIME-USE SMARTSET# 75775 Completed 10/26/2022, 10/11/2021, 01/01/2019, Additional history exists Influenza Vaccine (FLU shot) Completed , 03/31/2022, 03/23/2021, Additional history exists GARDASIL-HPV IMMUNIZATION SERIES Aged Out No longer eligible based on patient's age to complete this topic MENINGOCOCCAL (MENACTRA/MENVEO) Aged Out No longer eligible based on patient's age to complete this topic documented as of this encounter Medical Devices Implanted Type Area Social Group Worker Device Identifier Shelf Expiration Date Model / Serial / Lot Femur Nexgn E Right - [id number] Implanted:Qty: 1 on 05/12/2008 at OR [facility] Right: Knee [employer] 02/24/2018 00-5996-015 -[id number] / / [id number] Femur Nexgn E Left - [id number] Implanted:Qty: 1 on 11/19/2008 at OR [facility] Left: Knee [employer] 00-5996-015 -51 / / [id number] Sut Steel 6 M654g - [id number] Implanted:Qty: 6 on 07/11/2011 at [place] [facility] N/A: Chest DO NOT USE 01/09/2016 / / [id number] Akre[employer] Ao Micro Incision Lens Mi60l Implanted:Qty: 1 on 11/07/2013 at OR [facility] Right: Eye 06/25/2016 [id number] / [id number] / [id number] documented as of this encounter Visit Diagnoses [...] the patient have Health Care Power of Nuclear Auxiliary Operator? No Healthcare Agents on File Name Relationship Healthcare Agent Relationship Communication Soledad Peters Spouse Health Care Agen barbara (per Health Care Power of Nuclear Auxiliary Operator document) [email or web address] Huma Hernández Adult Child First Alternate Health Care Agent (per Health Care Power of Nuclear Auxiliary Operator document) [email or web address] Care Teams Fuel Quality Tech Relationship Specialty Start Date End Date Angel Quinteros DO [address] [place] [address] PCP - General Family Medicine 06/14/23 documented as of this encounter
--- OUTSIDE RECORDS SUMMARY | 2023-07-04 20:36 | External Medical Summary ---
Author Name Unknown Address Unknown Organization K1F:LABORATORY [facility] - [address] [place] [address] Laboratory Report Ordering Provider Test Date Status IVETTVIRGINIASHANNAN 06/23/2023 10:42:07 Final Observation Date Value Abnormality Reference (Units ) Status Phosphate 06/23/2023 10:42:07 2.1 Below low normal 2.5 -4.8 (mg/dL) Final Performing Location LABORATORY [facility] - [address] [place] [address]
--- OUTSIDE RECORDS SUMMARY | 2023-07-04 20:36 | External Medical Summary ---
Author Name Unknown Address Unknown Organization K01:[facility] [place] [address] [facility] [address] Laboratory Report Ordering Provider Test Date Status TARIK FLEMING 06/22/2023 14:31:11 Final Observation Date Value Abnormality Reference (Units) Status Color of Urine by Auto 06/22/2023 14:31:11 Light Yellow Colorless, Light Yellow, Yellow, Dark Yellow Final Clarity, Urine 06/22/2023 14:31:11 Clear Clear Final Glucose [Mass/volume] in Urine by Automated test strip 06/22/2023 14:31:11 Negative Negative (mg/dL) Final Bilirubin.total [Presence] in Urine by Automated test strip 06/22/2023 14:31:11 Negative Negative Final Ketones [Mass/volume] in Urine by Automated test strip 06/22/2023 14:31:11 Negative Negative (mg/dL) Final Specific gravity, Urine 06/22/2023 14:31:11 1.012 1.003-1.030 Final Hemoglobin [Presence] in Urine by Automated test strip 06/22/2023 14:31:11 Negative Negative Final pH, Urine 06/22/2023 14:31:11 8.0 Above high normal 5.0-7.5 (Units) Final Protein [Mass/volume] in Urine by Automated test strip 06/22/2023 14:31:11 Trace Abnormal Negative (mg/dL) Final Urobilinogen [Mass/volume] in Urine by Automated test strip 06/22/2023 14:31:11 Normal Normal (mg/dL) Final Nitrite [Presence] in Urine by Automated test strip 06/22/2023 14:31:11 Negative Negative Final Leukocyte esterase [Presence] in Urine by Automated test strip 06/22/2023 14:31:11 Negative Negative Final RBC, Urine 06/22/2023 14:31:11 0-2 0-2 (/HPF) Final WBC, Urine 06/22/2023 14:31:11 0-2 0-2 (/HPF) Final Bacteria [#/area] in Urine sediment by Microscopy high power field 06/22/2023 14:31:11 0-25 0-25 (/HPF) Final CULTURE, URINE - ISINGER 06/22/2023 14:31:11 Final Culture not indicated by uri nalysis results\X09\ Performing Location LABORATORY [place] [address] [address] [facility] [address]
--- OUTSIDE RECORDS SUMMARY | 2023-07-04 20:36 | External Medical Summary | Summary of Care ---
Author Name Unknown Organization [facility] Address [address] [place] [address] Phone [phone] Care Team Providers Care Bearing Grinder Name Role Phone Angel Quinteros DO Primary Care Provider [phone] Reason for Visit * Reason Comments Outpatient Testing Encounter Details Date Type Department Care Team (Late st Contact Info) Description 06/22/2023 2:10 PM EST Laboratory Laboratory, [place] [address] [place] Jaeger [phone] [place], Specimen Drop Off Lab [address] [place] Jaeger [phone] Acute cystitis without hematuria Allergies Active Allergy Reactions Criticality Noted Date [...] failure managing provider or [facility] medical case manager 1 Each 0 01/30/2019 Active [...] DNR (do not resuscitate) 05/21/2023 Constipation 05/21/2023 [place] (hard of hearing) 05/21/2023 Poor vision 05/21/2023 [...] thrombosis) 09/22/2015 PMR (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) 10/18/2012 terminal gauger current use of systemic steroids 10/18 History [...] Overview: seen at [facility] ER Anemia 05/13/2008 03/21/2017 Osteoarthritis of knee [...] Yes 06/10/2023 documented as of this encounter Plan of Treatment Upcoming Encounters Date Type Department Care Team (Late st Contact Info) Description 06/23/2023 9:00 AM EST [facility] [address] [place] [address] Amador Moreno PA-C 132 [place] Ramos [address] 06/24/2023 10:00 AM EST Scheduled Telephone [facility], [facility] 132 [facility] [place] SNYDER [address] Region, Nurse [facility] 132 [facility] [place] SNYDER [address] 06/27/2023 12:30 PM EST [facility] Visit [facility], [facility] 132 [facility] [place] SNYDER [address] Emeli Toledo, RN 132 [facility] [place] HOOD [address] 06/28/2023 1:00 PM EST Office Visit Palliative Medicine [facility] 200 [place] [address] Valeria Nath MD [address] [place] [address] [place] Melendez [address] 06/29/2023 12:45 PM EST Nurse Only Family Practice [address], [place] [address] [place] Jaeger [address] Nurse Deangelo Fam Prac [address] [place] Jaeger [address] 06/29/2023 1:00 PM EST Office Visit Family Practice 65 [facility], [place] [address] [place] Jaeger [phone] Angel Quinteros, DO [address] [place] Ja[place] [address] 07/06/2023 12:40 PM EST Office Visit Podiatry [facility] 132 [facility] [place] SNYDER [address] Felicita Copeland DPM 132 [facility] [place] SNYDER [address] 07/27/2023 12:40 PM EST Office Visit Gastroenterology, [facility] 310 [facility] [phone] Trina Plaza DO [address] [place] [address] 08/03/2023 1:30 PM EST Office Visit Urology [place] [address] [place] [address] [place] Melendez [address] Ryan Cunningham MD [address] [place] 270 APRILERIEVANESSA Batista [address] 09/11/2023 2:00 PM EDT Appointment Radiology, [facility] 400 [place] [phone] 09/11/2023 2:30 PM EDT PulmDiagnostic Pulmonary Function Lab [facility] [address] [facility] [address] [place], Pft [address] [place] [address] 09/11/2023 3:00 PM EDT Office Visit Pulmonary Medicine [facility] [address] [place] Malone [phone] Saul Moscoso MD 217 S [facility] [place] BRANDON [address] 10/25/2023 2:40 PM EDT Office Visit [facility] 200 [facility] [place], [place] [address] Mirza Mcgee III, MD 200 [facility] [place], [place] [address] 05/02/2024 1:00 PM EST Office Visit Sleep Disorders, [facility] 400 [place] [address] Alesha John MD [address] [place] [address] V[place] Fitzpatrick [address] Pending Results Name Type Priority Associated Diagnoses Date /Time URINALYSIS, REFLEX TO CULTURE (NOT FOR NEUTROPENIC PATIENTS) Lab Routine Acute cystitis without hematuria 06/22/2023 2:31 PM EST URINALYSIS, REFLEX TO CULTURE (CUP ONLY) Lab Routine Acute cystitis without hematuria 06/22/2023 2:31 PM EST URINALYSIS, REFLEX TO CULTURE Lab Routine Acute cystitis without hematuria 06/22/2023 2:31 PM EST Health Maintenance Due Date Last Done [...] Screening 02/03/2024 02/02/2023 CKD PHOS USE SMARTSET 86162 06/12/202405/26, 06/11/2023, 06/10/2023, Additional history exists CKD HGB USE SMARTSET 46609 06/13/202406/13, 06/13/2023, 06/12/2023, Additional history exists O2 ASSESSMENT COMPLETED IN PAST YEAR FOR COPD 06/15/2024 06/15/2023 Pneumococcal Vaccine: 65+ Years Completed 09/22/2015, 08/21/2001 VITAMIN D LEVEL ONCE IN A LIFETIME-USE SMARTSET# 81246 Completed 10/26/2022, 10/11/2021, 01/01/2019, Additional history exists Influenza Vaccine (FLU shot) Completed , 03/31/2022, 03/23/2021, Additional history exists GARDASIL-HPV IMMUNIZATION SERIES Aged Out No longer eligible based on patient's age to complete this topic MENINGOCOCCAL (MENACTRA/MENVEO) Aged Out No longer eligible based on patient's age to complete this topic documented as of this encounter Medical Devices Implanted Type Area Sanitation Tank Washer Device Identifier Shelf Expiration Date Model / Serial / Lot Femur Nexgn E Right - [id number] Implanted:Qty: 1 on 05/12/2008 [place] [facility] [place] Knee [employer] 02/24/2018 00-5996-015 -[id number] / / [id number] Femur Nexgn E Left - [id number] Implanted:Qty: 1 on 11/19/2008 [place] [facility] [place]: Knee [employer] 00-5996-015 -[id number] / / [id number] Sut Steel 6 M654g - [id number] Implanted:Qty: 6 on 07/11/2011 [place] [facility] N/A: Chest DO NOT USE 01/09/2016 / / [id number] Akreos Ao Micro Incision Lens [id number] Implanted:Qty: 1 on 11/07/2013 at OR [facility] Right: Eye 06/25/2016 [id number] / [id number] / [id number] documented as of this encounter Visit Diagnoses Diagnosis Acute cystitis without hematuria Acute cystitis documented in this encounter Advance [...] the patient have Health Care Power of Structural Test Engineer? No Healthcare Agents on File Name Relationship Healthcare Agent Relationship Communication Soledad Peters Spouse Health Care Agen t (per Health Care Power of Structural Test Engineer document) [email or web address] Huma Hernández Adult Child First Alternate Health Care Agent (per Health Care Power of Structural Test Engineer document) [email or web address] Care Teams Bearing Grinder Relationship Specialty Start Date End Date Angel Quinteros DO [address] [place] Jaeger [address] PCP - General Family Medicine 06/14/23 documented as of this encounter
--- OUTSIDE RECORDS SUMMARY | 2023-07-04 20:36 | External Medical Summary ---
Author Name Unknown Address Unknown Organization K1F:LABORATORY [facility] - [place] [id number] Laboratory Report Ordering Provider Test Date Status JAYDEN LYLES 06/23/2023 10:42:07 Final Observation Date Value Abnormality Reference (Units ) Status Troponin T 06/23/2023 10:42:07 30 Above high normal < =22 (ng/L) Final Performing Location LAB[facility] - [address] [place] [address]
--- OUTSIDE RECORDS SUMMARY | 2023-07-04 20:36 | External Medical Summary | Summary of Care ---
Author Name Unknown Organization [facility] Address [address] [place] [address] Phone [phone] Care Team Providers Care Rate Reviewer Name Role Phone Angel Quinteros DO Primary Care Provider [phone] Encounter Details Date Type Department Care Team (Late st Contact Info) Description 06/16/2023 Telephone [facility] Palliative Medicine 400 [facility] VAN[place]SA MELENDEZ [phone] Maddison Garcia CRNP 400 [place] [address] Allergies Active Allergy Reactions Criticality Noted Date [...] failure managing provider or ising at home senior case manager 1 Each 0 01/30/2019 Active [...] take with food. 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 Attempted call x1 and left a voicemail at 9:27AM. Reached back out at 11:53 and spoke with . Patient is doing "very well," and pain is well-controlled. Taking: Baclofen twice a day. Tylenol 1000mg in AM, at noon if needed (has mostly been skipping this dose), and bedtime Gabapentin 400mg four times a day Tramadol 50mg at bedtime Did vomit x1 this morning. Noticing that the chocolate Boost is not agreeing with his stomach. They're going to try Vanilla today and see how that works. I recommended checking for something like Boost Breeze. They will look. Keep f/u as scheduled next week. AFTAB Juarez Palliative Medicine Nurse Practitioner [email or web address] documented in this encounter Plan of Treatment Upcoming Encounters Date Type Department Care Team (Late st Contact Info) Description 06/23/2023 9:00 AM EST Home Visit ising at [facility] 132 [place] Justin [address] Amador Moreno PA-C 132 [place] Grewal [address] 06/27/2023 12:30 PM EST Home Visit isinger at [facility] 132 [place] Justin [address] Emeli Toledo RN 132 [place] Grewal [address] 06/28/2023 1:00 PM EST Office Visit Palliative Medicine [facility] 200 [place] [address] Valeria Nath MD 400 [place] [address] 06/29/2023 12:45 PM EST Nurse Only Family Practice [address], [place] [address] [place] Jaeger [phone] [place], Nurse Fam Prac [address] [place] Jaeger [phone] 06/29/2023 1:00 PM EST Office Visit Family Practice [address], [place] [address] [place] Ja[place] [address] Angel Quinteros DO [address] [place] Jaeger [phone] 07/06/2023 12:40 PM EST Office Visit Podiatry [facility] 132 [facility] [place] HOOD [address] Felicita Copeland DPM 132 [facility] [address] 07/27/2023 12:40 PM EST Office Visit [facility]ology, [facility] 310 [facility] [phone] Trina Plaza, DO [address] [place] [address] 08/03/2023 1:30 PM EST Office Visit Urology [place] [address] [place] 270 [place] Melendez [address] Ryan Cunningham MD 27 [facility] 270 [place] MELEN[place]Z [address] 09/11/2023 2:00 PM EDT Appointment Radiology, [facility] [address] [place] Khoury [phone] 09/11/2023 2:30 PM EDT PulmDiagnostic Pulmonary Function Lab Harry Madhu [place] [address] [place] [address] [place], Pft [address] [place] Smith [address] 09/11/2023 3:00 PM EDT Office Visit Pulmonary Medicine Harry Nora [place] [address] [place] [phone] Saul Moscoso MD [address] [place] [address] 10/25/2023 2:40 PM EDT Office Visit Family [facility] 200 [place] [address] Mirza Mcgee III, MD 200 [facility] [place], [place] [address] 05/02/2024 1:00 PM EST Office Visit Sleep Disorders, [facility] 400 [place] [address] Alesha John MD [address] [place], [place] [phone] Health Maintenance Due Date Last Done Comments [...] TO SMARTSET #1146) 06/01/2023 HbA1c 10/14/2023 04/14/2023, 08/2022, 06/10/2022, Additional history exists Albumin/Creatinine Ratio 10/27/2023 10/26/2022, 02/25 DXA Scan 11/03/2023 11/02/2021, 07/27, 04/11/2017, Additional history exists Depression Screening 02/03/2024 02/02/2023 CKD PHOS USE SMARTSET 33189 06/12/202405/26, 06/11/2023, 06/10/2023, Additional history exists CKD HGB USE SMARTSET 97889 06/13/202406/13, 06/13/2023, 06/12/2023, Additional history exists O2 ASSESSMENT COMPLETED IN PAST YEAR FOR COPD 06/15/2024 06/15/2023 Pneumococcal Vaccine: 65+ Years Completed 09/22/2015, 08/21/2001 VITAMIN D LEVEL ONCE IN A LIFETIME-USE SMARTSET# 83929 Completed 10/26/2022, 10/11/2021, 01/01/2019, Additional history exists Influenza Vaccine (FLU shot) Completed , 03/31/2022, 03/23/2021, Additional history exists GARDASIL-HPV IMMUNIZATION SERIES Aged Out No longer eligible based on patient's age to complete this topic MENINGOCOCCAL (MENACTRA/MENVEO) Aged Out No longer eligible based on patient's age to complete this topic documented as of this encounter Medical Devices Implanted Type Area Day Guard Device Identifier Shelf Expiration Date Model / Serial / Lot Femur Nexgn E Right - [id number] Implanted:Qty: 1 on 05/12/2008 at [place] [facility] [place] Right: Knee [employer] 02/24/2018 00-5996-015 -[id number] / / [id number] Femur Nexgn E Left - [id number] Implanted:Qty: 1 on 11/19/2008 at OR [facility] [place] Left: Knee [employer] 00-5996-015 -51 / / [id number] Sut Steel 6 M654g - [id number] Implanted:Qty: 6 on 07/11/2011 at [place] [facility] [place] N/A: Chest DO NOT USE 01/09/2016 / / [id number] Akreos Ao Micro Incision Lens Mi60l Implanted:Qty: 1 on 11/07/2013 at OR [facility] Right: Eye 06/25/2016 [id number] / [id number] / [id number] documented as of this encounter Advance Directives [...] the patient have Health Care Power of Vat Skimmer? No Healthcare Agents on File Name Relationship Healthcare Agent Relationship Communication Soledad Peters Spouse Health Care Agen t (per Health Care Power of Vat Skimmer document) Huma Hernández Adult Child First Alternate Health Care Agent (per Health Care Power of Vat Skimmer document) [email or web address] Care Teams Rate Reviewer Relationship Specialty Start Date End Date Angel Quinteros DO [address] [place] Jaeger [phone] PCP - General Family Medicine 06/14/23 documented as of this encounter
--- OUTSIDE RECORDS SUMMARY | 2023-07-04 20:36 | External Medical Summary ---
Author Name Unknown Address Unknown Organization K1F:LABORATORY [facility] - [address] [place] [address] Laboratory Report Ordering Provider Test Date Status JAYDEN LYLES 06/23/2023 10:42:07 Final Observation Date Value Abnormality Reference (Units ) Status Lactic Acid 06/23/2023 10:42:07 1.7 0.4-2.0 (mmol/L) Final Performing Location LABORATORY [facility] - [address] [place] [address]
--- OUTSIDE RECORDS SUMMARY | 2023-07-04 20:37 | External Medical Summary | Summary of Care ---
Author Name Unknown Organization [facility] Address [address] [place] [address] Phone [phone] Care Team Providers Care Saturator Tender Name Role Phone Angel Quinteros DO Primary Care Provider [phone] Reason for Visit * Reason Comments Outpatient Testing Encounter Details Date Type Department Care Team (Late st Contact Info) Description 06/15/2023 7:20 AM EST Laboratory Laboratory, [facility] 400 [place] [phone] [facility], Lab 400 [place] [address] Liver lesion Allergies Active Allergy Reactions Criticality Noted Date Comments Amoxicillin Rash 09/27/2005 At time of knee replacement Oxycodone Other (Please comment) 10/11/2012 Severe mental change Oxycodone-Acetaminophe n Other (Please comment) 03/15/2010 Severe mental change documented as of this encounter (statuses as of 06/15/2023) Medications Medication Sig Dispensed Refills Start Date End Date Status DIURETIC TITRATION PLAN If no improvement on day 3, contact heart failure managing provider or ising at home piano case maker 1 Each 0 01/30/2019 Suspended Additional Information aspirin enteric coated 81 MG TBECIndications:HTN , goal below 140/90 Take one pill daily 100 Tab 3 11/22/2019 Suspended Additional Information Patient taking differently:, Take one pill daily,Indications: blood pressure, Reported on 05/02/2022 oxygen IN GASIndications: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 8 Capsule 0 06/13/2023 06/17/20 23 Suspended Additional Information Sennosides-Docusate Sodium 8.6-50 MG [...] as needed for Pain, Breakthrough. 0 Suspended Hospital, Clinic, or Other Facility Administered Medication [...] as of this encounter (statuses as of 06/15/2023) Active Problems Problem Noted Date Diagnosed Date Hypophosphatemia 06/10/2023 UTI (urinary tract infection) 06/10/2023 Intractable nausea and vomiting 05/21/2023 Uncontrolled pain 05/21/2023 Degenerative lumbar spinal stenosis 05/21/2023 DNR (do not resuscitate) 05/21/2023 Constipation 05/21/2023 [place] (hard of hearing) 05/21/2023 Poor vision 05/21/2023 [...] as of this encounter (statuses as of 06/15/2023) Resolved Problems Problem Noted Date Diagnosed Date [...] obstruction 2 08/23/2018 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 [facility]2019 Overview: knees documented as of this encounter (statuses as of 06/15/2023) Immunizations Name Administration Dates Next Due COVID-19 mRNA, LNP-s, No Pre serve, 2-Dose Series (Hango) 08/30/2020,08/02/2020 Pneumococcal Conjugate Vacc, 13 Valent (Prevnar) [...] 11:00 AM EST Office Visit Family Practice [facility] 200 [place] [address] Mirza Mcgee III, MD 200 [place] [address] 06/23/2023 9:00 AM EST [facility], [facility] 132 [facility] [place] [address] Amador Moreno PA-C [address] [place] [address] 06/27/2023 12:30 PM EST [facility] Visit [facility] 132 [facility] [place] [address] Emeli Toledo RN [address] [place] HOOD [address] 06/28/2023 1:00 PM EST Office Visit Palliative Medicine [facility] 200 [place] [address] Valeria Nath MD [address] [place] [address] [place] [address] 07/06/2023 12:40 PM EST Office Visit Podiatry [facility] [address] [place] [address] Felicita Copeland DPM [address] [place] [address] 07/27/2023 12:40 PM EST Office Visit Gastroenterology, [facility] [place] 310 [facility] [place] [phone] Trina Plaza DO [address] [place] [address] 08/03/2023 1:30 PM EST Office Visit Urology [facility] [address] [place] [address] [place] [address] Ryan Cunningham MD [address] [place] [address] [place] [address] 09/11/2023 2:00 PM EDT Appointment Radiology, [facility] 400 [facility] APRILNEW BRIGHTONV[place]ESSA Batista [phone] 09/11/2023 2:30 PM EDT PulmDiagnostic [facility] [address] [place] [address] West, Pft [address] [place] [address] 09/11/2023 3:00 PM EDT Office Visit Pulmonary Medicine Harry [place] [address] [place] [phone] Saul Moscoso MD 217 [address] [facility] [place] [address] 10/25/2023 2:40 PM EDT Office Visit Family Practice [facility] 200 [place] [address] Mirza Mcgee III, MD 200 [place] [address] 05/02/2024 1:00 PM EST Office Visit Sleep Disorders, [address] [address] Alesha John MD 400 [place] [address] Pending Results Name Type Priority Associated Diagnoses Date /Time PT INR Lab STAT Liver lesion 06/15/2023 7:15 AM EST Scheduled Procedures Name Priority Associated Diagnoses Date/Ti me PRE / POST CARE Metastases to the liver (HCC) 06/15/2023 9:00 AM EST Health Maintenance Due Date Last [...] TO SMARTSET #1146) 06/01/2023 HbA1c 10/14/2023 04/14/2023, 050 08/2022, 06/10/2022, Additional history exists Albumin/Creatinine Ratio 10/27/2023 10/26/2022, 02/25 DXA Scan 11/03/2023 11/02/2021, 07/27, 04/11/2017, Additional history exists Depression Screening 02/03/2024 02/02/2023 CKD PHOS USE SMARTSET 25617 06/12/202405/26, 06/11/2023, 06/10/2023, Additional history exists CKD HGB USE SMARTSET 67764 06/13/202406/13, 06/13/2023, 06/12/2023, Additional history exists O2 ASSESSMENT COMPLETED IN PAST YEAR FOR COPD 06/14/2024 06/14/2023 Pneumococcal Vaccine: 65+ Years Completed 09/22/2015, 08/21/2001 VITAMIN D LEVEL ONCE IN A LIFETIME-USE SMARTSET# 72833 Completed 10/26/2022, 10/11/2021, 01/01/2019, Additional history exists Influenza Vaccine (FLU shot) Completed , 03/31/2022, 03/23/2021, Additional history exists GARDASIL-HPV IMMUNIZATION SERIES Aged Out No longer eligible based on patient's age to complete this topic MENINGOCOCCAL (MENACTRA/MENVEO) Aged Out No longer eligible based on patient's age to complete this topic documented as of this encounter Medical Devices Implanted Type Area Patroller Device Identifier Shelf Expiration Date Model / Serial / Lot Femur Nexgn E Right - [id number] Implanted:Qty: 1 on 05/12/2008 [place] [facility] [place]: Knee [employer] 02/24/2018 00-5996-015 -52 / / [id number] Femur Nexgn E Left - [id number] Implanted:Qty: 1 on 11/19/2008 at [place] [facility] [place] Left: Knee [employer] 00-5996-015 -51 / / [id number] Sut Steel 6 M654g - [id number] Implanted:Qty: 6 on 07/11/2011 at [place] [facility] [place] N/A: Chest DO NOT USE 01/09/2016 / / [id number] Akreos Ao Micro Incision Lens Mi60l Implanted:Qty: 1 on 11/07/2013 at OR [facility] Right: Eye 06/25/2016 [id number] / [id number] / [id number] documented as of this encounter Visit Diagnoses Diagnosis Liver lesion Other specified disorders of liver documented in this encounter Advance Directives Latest [...] the patient have Health Care Power of Job Estimator? No Healthcare Agents on File Name Relationship Healthcare Agent Relationship Communication Soledad Peters Spouse Health Care Agen t (per Health Care Power of Job Estimator document) [email or web address] Huma Hernández Adult Child First Alternate Health Care Agent (per Health Care Power of Job Estimator document) [email or web address] Care Teams Saturator Tender Relationship Specialty Start Date End Date Angel Quinteros DO [address] [place] Jaeger [phone] PCP - General Family Medicine 06/14/23 documented as of this encounter
--- OUTSIDE RECORDS SUMMARY | 2023-07-04 20:37 | External Medical Summary | Summary of Care ---
Author Name Unknown Organization [facility] Address [address] [place] [address] Phone [phone] Care Team Providers Care Import Customer Service Manager Name Role Phone Angel Quinteros DO Primary Care Provider + [phone] Reason for Visit * Reason Comments [facility]: Enrollment Encounter Details Date Type Department Care Team ([facility] st Contact Info) Description 06/14/2023 11:00 AM EST Home Visit [facility], [facility] [address] [place] [address] Emeli Toledo, RN [address] [place] [address] Advanced care planning/counseling discussion* Allergies Active Allergy Reactions Criticality Noted Date Comments Amoxicillin Rash 09/27/2005 At time of knee replacement Oxycodone Other (Please comment) 10/11/2012 Severe mental change Oxycodone-Acetaminophe n Other (Please comment) 03/15/2010 Severe mental change documented as of this encounter (statuses as of 06/14/2023) Medications Medication Sig Dispensed Refills Start Date End Date Status DIURETIC TITRATION PLAN If no improvement on day 3, contact heart failure managing provider or [facility] director of casework department 1 Each 0 9 Active aspirin enteric coated 81 MG TBECIndications:HTN , goal below 140/90 Take one pill daily 100 Tab 3 0 Active Additional Information Patient taking differently:, Take one pill daily,Indications: blood pressure, Reported on 05/02/2022 oxygen IN GASIndications: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 0 Active Spironolactone 25 MG Oral Tablet (Aldactone)Indicati ons:HTN, goal below 140/90,Chronic diastolic heart failure (HCC) Take 1/2 tablet daily 45 Tablet 3 3 Active Prolia 60 MG/ML Subcutaneous Solution Prefilled Syringe (Denosumab) INJECT 60 MG (1 SYRINGE) UNDER THE SKIN EVERY 6 MONTHS 1 mL 1 3 10/07/19 24 Active Benzonatate 100 MG Oral CapsuleIndications: Bronchitis, complicated,Viral [...] MOUTH EVERY DAY 180 Each 3 3 11/01/19 24 Active Gabapentin 400 MG Oral Capsule (Neurontin) TAKE ONE CAPSULE BY MOUTH FOUR TIMES A DAY 400 Capsule 3 3 10/13/19 24 Active Benazepril HCl 40 MG Oral Tablet TAKE ONE TABLET BY MOUTH EVERY DAY 90 Tablet 3 3 09/04/19 24 Active Atorvastatin Calcium 20 MG Oral Tablet (Lipitor) TAKE ONE TABLET BY MOUTH EVERY DAY 90 Tablet 3 3 09/10/19 24 Active Doxazosin Mesylate 8 MG Oral Tablet TAKE ONE TABLET BY MOUTH AT BEDTIME 90 Tablet 3 3 08/12/19 24 Active Finasteride 5 MG Oral Tablet (Proscar)Indication s:BPH with obstruction/lower urinary tract symptoms TAKE ONE TABLET BY MOUTH EVERY MORNING 90 Tablet 3 3 08/12/19 24 Active Atenolol 50 MG Oral Tablet (Tenormin)Indicatio ns:HTN, goal below 140/90,PVC (premature ventricular contraction) TAKE ONE TABLET BY MOUTH EVERY MORNING AND TAKE ONE-HALF TABLET IN THE EVENING 135 Tablet 3 3 02/08/20 24 Active Diclofenac Sodium 1 % External Gel (Voltaren) APPLY 4 GRAMS TOPICALLY TO UPPER/LOWER BACK TWO TIMES A DAY NEEDED FOR PAIN 800 g 0 3 Active Ipratropium-Albuter ol 0.5-2.5 (3) MG/3ML Inhalation Solution (Duoneb)Indications :Wheezing,Bronchiti s, complicated INHALE 1 VIAL (3ml) IN NEBULIZER 4 TIMES A DAY. 1080 mL 1 3 Active Omeprazole 20 MG Oral Capsule Delayed Release (PriLOSEC) TAKE ONE CAPSULE BY MOUTH TWICE A DAY 180 Capsule 3 3 04/03/20 24 Active amLODIPine Besylate 5 MG Oral Tablet (Norvasc)Indication s:HTN, goal below 140/90 TAKE ONE TABLET BY MOUTH EVERY DAY 100 Tablet 1 3 04/23/20 24 Active Furosemide 20 MG Oral Tablet (Lasix)Indications: HTN, goal below 140/90,Chronic diastolic heart failure (HCC) TAKE ONE TABLET BY MOUTH EVERY MORNING. MAY TAKE ONE ADDITIONAL TABLET NEEDED FOR FLUID RETENTION, WEIGHT GAIN 100 Tablet 3 3 04/24/20 24 Active busPIRone HCl 5 MG Oral Tablet (Buspar) Take 1 Tablet by mouth in the morning and 1 Tablet before bedtime. 60 Tablet 6 3 Active predniSONE 5 MG Oral Tablet (Deltasone) TAKE ONE TABLET BY MOUTH DAILY 100 Tablet 0 3 04/25/20 24 Active CPAP 10 cm every night at [...] Active traMADol HCl 50 MG Oral Tablet (Ultram)Indications :Prostate cancer metastatic to bone (HCC) Take 1 Tablet by mouth every 6 hours as needed for Pain, Severe. Take 1 tablet every 6 hours around the clock to control pain. 60 Tablet 0 3 Active Metoclopramide HCl 5 MG Oral Tablet (Reglan)Indications [...] for Nausea. 20 Tablet 1 3 Active Nitrofurantoin Monohyd Macro 100 MG Oral Capsule (Macrobid) Take 1 Capsule by mouth in the morning and 1 Capsule before bedtime - do all this for 4 days - take with food. 8 Capsule 0 3 06/17/20 23 Active Sennosides-Docusate Sodium 8.6-50 MG Oral Tablet [...] as needed for Pain, Breakthrough. 0 Active PRESERVISION AREDS 2 PO CAPS one by mouth twice a day 0 06/14/20 Discontinued zinc gluconate 50 MG Tablet Take 1 Tablet by mouth in the morning. 0 06/14/20 23 Discontinued Magnesium 250 MG Tablet Take 1 Tablet by mouth in the morning. 0 06/14/20 23 Discontinued Calcium 200 MG Tablet Take 200 mg by mouth daily. 0 06/14/20 23 Discontinued Fluticasone Propionate 50 MCG/ACT Nasal Suspension (Flonase) ADMINISTER TWO SPRAYS IN EACH NOSTRIL EVERY MORNING 48 g 2 3 06/14/20 23 Discontinued Baclofen 5 MG Oral Tablet (Lioresal)Indicatio ns:Metastases to the liver (HCC) Take 1 Tablet by mouth in the morning and 1 Tablet in the evening. 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 10/18 [...] as of this encounter (statuses as of 06/14/2023) Resolved Problems Problem Noted Date Diagnosed Date [...] lower extremities 11/24/2008 09/22/2015 Overview: seen at [facility] ER Anemia 05/13/2008 03/21/2017 Osteoarthritis [...] obstruction 2 08/23/2018 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 [facility] SITE 02/2019 Overview: knees documented as of this encounter (statuses as of 06/14/2023) Immunizations Name Administration Dates Next Due COVID-19 [...] Sign Reading Time Taken Comments Blood Pressure 142/40 06/14/2023 11:47 AM EST Pulse 65 06/14/2023 11:47 AM EST Temperature 36.4 C (97.6 F) 06/14/2023 11:[address] Respiratory Rate 16 06/14/2023 11:47 AM EST Oxygen Saturation 96% 06/14/2023 11:47 AM EST RA Inhaled Oxygen Concentration - - Weight - [...] Progress Notes * Emeli Toledo, RN - 06/14/2023 8:20 AM EST [facility] Radon [facility] Monthly Visit Date: 06/14/2023 Time: 8:20 AM Situation: Enrollment, HOMERO 1 Background: PMHx: CHF, HTN, PVC, CKD 3a, macular degeneration b/l, COPD group C, SANJEEV, chronic resp fx w/ hypoxia, sacroiliitis, UTI, DM, steroid-induced DM, dyslipidemia, hypokalemia, hypophosphatemia, IBS, GERD, Baretts Esophagus, intractable n/v, constipation, PMR, 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 Extensive fibrotic interstitial changes of the lung parenchyma. Question superimposed bibasilar infiltrate/pneumonia. 2. Cardiomegaly 3. Nonspecific shotty mediastinal adenopathy. Recommend attention on follow-up. IMPRESSION: CT abdomen pelvis 05/09/2023 1. Numeral small lesions throughout the liver, the majority less than 1 cm in size. Findings consistent with those on recent ultrasound and likely representing metastatic disease 2. 3.5 cm soft tissue mass anteriorly in the peritoneal cavity just below the sternum. Neoplastic metastatic focus suspected . 3. Necrotic lymph node in the upper abdomen may represent a focus of lymphoid metastatic disease 4. Nonobstructive bowel gas pattern 5. Mildly enlarged heterogeneous prostate 6. Other chronic changes as above Above test results reviewed with during telemed f/u with Dr. Sandoval, Heme/Onc on 06/08/23 Scheduled for liver biopsy at [facility] tomorrow Wt loss: Wt Readings from Last 15 Encounters: 06/12/23 96.8 kg (213 lb 6.4 oz) 05/30/23 104.1 kg (229 lb 9.6 oz) 05/26/23 103.7 kg (228 lb 9.6 oz) 05/12/23 105.5 kg (232 lb 8 oz) 05/10/23 106.6 kg (235 lb 1.6 oz) 05/03/23 107.2 kg (236 lb 6.4 oz) 05/02/23 107.5 kg (237 lb) 04/14/23 108.7 kg (239 lb 9.6 oz) 03/01/23 110.3 kg (243 lb 3.2 oz) 02/02/23 108.4 kg (239 lb) 01/20/23 107.1 kg (236 lb 3.2 oz) 11/29/22 108.9 kg (240 lb) 10/19/22 111.6 kg (246 lb) 10/13/22 111.6 kg (246 lb) 10/09/22 111.1 kg (245 lb) Assessment: Pt greeted me at door while using his Rolator Appears healthy ''I hurt in my back today'' Had goals of care discussion with pt He wishes to spend time with family States would not go through chemotherapy again Had very difficult time when had in past Pt's and daughter present and ''we will support whatever he decides'' Daughter reports that pt has had much pain, n/v and anxiety since onset of cancer s/s Last BM yesterday, also had 3 large bms in hospital previous day Recommendation: Take tramadol bid routinely Take compazine bid routinely Physical Exam: BP 142/40 | Pulse 65 | Temp 36.4 C (97.6 F) | Resp 16 | SpO2 96% Comment: RA Pain 7 Physical Exam Constitutional: Appearance: Normal appearance. HENT: [...] (occasional GROVES). Cardiovascular: Positive for leg swelling (+2 b/l le pitting). Gastrointestinal: Negative for abdominal distention, abdominal pain, constipation and diarrhea. Genitourinary: Negative. Musculoskeletal: Positive for back pain (metastatic dx). Skin: Negative. Neurological: Positive for weakness. Psychiatric/Behavioral: The patient is nervous/anxious. Medication Reconciliation: (See medication list) Does patient take medications as ordered: Yes Patient Well Being: Lives in single story home with who is supportive Has multiple children who are supportive [facility] Completed this Visit: Yes. [facility]-10: Reason Completed: Enrollment [facility]10 ([facility]) Fall Risk Assessment Tool Age 65+: Yes (06/14/23 1300) Diagnosis (3 or more co-existing): Yes (12/20/23 1300) Prior history of falls within 3 months: No (06/14/231299) Incontinence: Yes (06/14/231299) Visual impairment: Yes (06/14/231299) Impaired functional mobility: Yes (06/14/231299) Environmental hazards: No (06/14/231299) Poly Pharmacy (4 or more prescriptions - any type): Yes (06/14/231299) Pain affecting level of function: Yes (06/14/231299) Cognitive impairment: No (06/14/231299) Score - a score of 4 or more is considered at risk for fallin (06/14/231299) [facility]-10 Interventions: Fall education provided, reviewed/provided Fall brochure Advanced Care Planning: Living Will. and POLST. Reinforcement/Education: Educated on home safety: Create a [...] if at night -increased fatigue or vertigo --Constipation: Increase activity Drink plenty of fluids Eat more fiber, fresh fruits and vegetables Consider Miralax daily Avoid harsh laxatives Call with any abdominal pain, cramping, fever or chills Reinforced safety education and fall prevention. and Reinforced medication regimen. Timing., Dosing., and Purspose. Does pt have BYOD email? [email or web address] Contacts: Emeli Toledo RN Case Manager, AFTAB Pelayo Causes of Utilization: metastatic cancer Connectivity in home: yes Does pt have Internet in home: yes Health Monioring Device in home? Additional Information: Treatment/Plan: Followed by [facility] Palliative Care: [facility] - CPAP 10cm QHS w/ O2 1.5 lpm blend O2 provided by DTP on file: may take additional lasix 20mg Spare urine collection kit in home Tramadol for pain No APAP pending liver biopsy results Drink 1-2 high protein supplements daily Patient's Goals of Care: Liver biopsy Learn more about state of cancer Spend time with family Home Interventions Provided: Reinforced current Plan of Care, including self-management and medication regimen Updated Advanced Care Planning Note Updated Exacerbation Plan Patient's 'Red Flags': No BM x3 days Uncontrolled pain Uncontrolled n/v Patient Needs to Remember: Call [facility] with red flags Referrals Needed: Other none Follow Up: Is there cellular connectivity/connectivity in the home? Yes Does the patient have internet in the home? Yes Patient encouraged to call the intake phone number for all urgent but not emergent issues. Is the patient new to [facility] within the last 30 days? Yes, Is this a Transitions of Care visit? Yes, this is the 1st visit. Provider is in agreement with Plan of Care: Yes Scheduled to follow up with patient next week with provider for HOMERO 2 followed by 1 week with RNCM visit. Emeli Toledo RN 06/14/2023 8:20 AM documented in this encounter Miscellaneous Notes * ACP (Advance Care Planning) - Emeli Toledo RN - 06/14/2023 1:33 PM EST Images from the original note were not included. Patient-centered Communication 06/14/2023 The patient/surrogate voluntarily agreed to participate in advance care planning discussion. They were advised that this is a separate service which may incur out of pocket cost in the form of copayment and/or deductibles. Location: Home Individual(s) present for conversation: Patient, Spouse, and Daughter(s) Decisions Synopsis SmartLink Most Recent Value Past ~10 years 06/14/2023 13:34 Decisions CPR decision: Declines CPR 06/14/2023 Declines CPR Intubation/Mechanical Ventilation decision: Declines Intubation/mechanical ventilation 06/14/2023 Declines Intubation/mechanical ventilation Non-invasive ventilation or BIPAP decision: Patient chooses non-invasive ventilation. Select interventions below 06/14/2023 Patient chooses non-invasive ventilation. Select interventions below Non-Invasive Ventilation Interventions: Oxygen only;CPAP;BIPAP;NIV for comfort 06/14/2023 Oxygen only;CPAP;BIPAP;NIV for comfort Antibiotic therapy decision: Patient chooses Antibiotic therapy 06/14/2023 Patient chooses Antibiotic therapy Artificial nutrition decision: Declines Artificial nutrition 06/14/2023 Declines Artificial nutrition IV hydration decision: Patient chooses IV hydration 06/14/2023 Patient chooses IV hydration Surgical procedure(s) decision: Undecided about Surgical procedure 06/14/2023 Undecided about Surgical procedure Blood transfusion decision: Patient chooses Blood transfusion 06/14/2023 Patient chooses Blood transfusion Lab draw decision: Patient chooses Lab draws 06/14/2023 Patient chooses Lab draws Hospice decision: Undecided about Hospice 06/14/2023 Undecided about Hospice Dying at home decision: Patient chooses Dying at home 06/14/2023 Patient chooses Dying at home Dialysis decision: Dialysis Not discussed 06/14/2023 Dialysis Not discussed Additional Comments Synopsis SmartLink Most Recent Value Past ~10 years 06/14/2023 13:34 Additional Comments Additional Comments: Wishes to make decisions about surgical proceedures at time of need. POLST on Fridge and reflective of wishes. 06/14/2023 Wishes to make decisions about surgical proceedures at time of need. POLST on Fridge andreflective of wishes. Discerning What Matters Most to the Patient: Synopsis SmartLink Most Recent Value Past ~10 years 03/01/2023 14:42 Discerning What Matters Most to the Patient Their current SYMPTOMS include: Shortnes of breath;Reduced overall well being 03/01/2023 Shortnes of breath;Reduced overall well being They say their illness has CHANGED THEIR LIFE by: Less enjoyment (quality of life) 03/01/2023 Less enjoyment (quality of life) The patient thinks COMPLICATIONS in the future may be: More hospitalizations 03/01/2023 More hospitalizations The patient's HOPES are: Avoid further hospitalization 03/01/2023 Avoid further hospitalization The patient's FEARS/WORRIES about illness are: Going back to the hospital 03/01/2023 Going back to the hospital Source: Content from [employer] Aligning Care With What Matters Most: Synopsis SmartHalf [employer] Most Recent Value Past ~10 years 06/14/2023 13:34 Aligning Care With What Matters Most In their own words, the patient's understanding of their prognosis: I have cancer. 06/14/2023 I have cancer. Interventions/Choices: CPR;Intubation/mechanical ventilation;Non-invasive ventilation or BIPAP;Antibiotic therapy;Artificial nutrition;IV hydration;Surgical procedure;Blood transfusion;Lab draws;Hospice; at home;Dialysis 06/14/2023 CPR;Intubation/mechanical ventilation;Non-invasive ventilation or BIPAP;Antibiotic therapy;Artificial nutrition;IV hydration;Surgical procedure;Blood transfusion;Lab draws;Hospice; at home;Dialysis Rationale for Decisions Source: Content from [employer] Program 20 minutes spent in direct [id number] discussion today, Emeli Toledo RN documented in this encounter Plan of Treatment Upcoming Encounters Date Type Department Care Team (Late st Contact Info) Description 06/15/2023 9:00 AM EST Hospital Encounter [facility], Operating Room, [facility] - 4th Floor [address] [address] [facility], In And Out Surgery [address] [place] [address] 06/15/2023 9:00 AM EST Appointment Radiology, [facility] [address] [place] [address] 06/15/2023 9:00 AM EST - 06/15/2023 10:00 AM EST Surgery [facility], Operating Room, [facility] - 4th Floor [address] [place] [address] [facility], In And Out Surgery [address] [place] [address] PRE / POST CARE 06/20/2023 11:00 AM EST Office Visit Family Practice [facility] [address] [place] [address] Mirza Mcgee III, MD [address] [facility] [address] 06/23/2023 9:00 AM EST Home Visit [facility], [facility] [address] [facility] [place] [address] Amador Moreno PA-C [address] [facility] [place] [address] 06/27/2023 12:30 PM EST Home Visit [facility], [facility] [address] [facility] [place] [address] Emeli Toledo, RN [address] [facility] [place] [address] 06/28/2023 1:00 PM EST Office Visit Palliative Medicine [facility] [address] [place], [place] [address] Valeria Nath MD [address] [place] [address] 07/06/2023 12:40 PM EST Office Visit [facility]iat[facility] [address] [place] [address] Felicita Copeland DPM [address] [place] [address] 07/27/2023 12:40 PM EST Office Visit Gastroenterology, [facility] [address] [place] [phone] Trina Plaza DO [address] [place] [address] 08/03/2023 1:30 PM EST Office Visit Urology [facility] [place] [address] [place] [address] [place] [address] Ryan Cunningham MD [address] [place] [address] 09/11/2023 2:00 PM EDT Appointment Radiology, [address] [phone] 09/11/2023 2:30 PM EDT PulmDiagnostic Pulmonary Function Lab [facility] [address] [facility] [place] [address] [place], [address] [place] [address] 09/11/2023 3:00 PM EDT Office Visit Pulmonary Medicine [facility] [address] [place] [phone] Saul Moscoso MD [address] [facility] [place] [address] 10/25/2023 2:40 PM EDT Office Visit Family Practice [facility] [address] [place] [address] Mirza Mcgee III, MD [address] [place] [address] 05/02/2024 1:00 PM EST Office Visit Sleep Disorders, [address] [place] [address] Alesha John MD [address] [facility] [place] [address] Scheduled Procedures Name Priority Associated Diagnoses Date/Ti [...] Screening 02/03/2024 02/02/2023 CKD PHOS USE SMARTSET 31691 06/12/202405/26, 06/11/2023, 06/10/2023, Additional history exists CKD HGB USE SMARTSET 16938 06/13/202406/13, 06/13/2023, 06/12/2023, Additional history exists O2 ASSESSMENT COMPLETED IN PAST YEAR FOR COPD 06/13/2024 06/13/2023 Pneumococcal Vaccine: 65+ Years Completed 09/22/2015, 08/21/2001 VITAMIN D LEVEL ONCE IN A LIFETIME-USE SMARTSET# 43836 Completed 10/26/2022, 10/11/2021, 01/01/2019, Additional history exists Influenza Vaccine (FLU shot) Completed , 03/31/2022, 03/23/2021, Additional history exists GARDASIL-HPV IMMUNIZATION SERIES Aged Out No longer eligible based on patient's age to complete this topic MENINGOCOCCAL (MENACTRA/MENVEO) Aged Out No longer eligible based on patient's age to complete this topic documented as of this encounter Medical Devices Implanted Type Area Compress Engineer Device Identifier Shelf Expiration Date Model / Serial / Lot Femur Nexgn E Right - [id number] Implanted:Qty: 1 on 05/12/2008 at OR [facility] Right: Knee [employer] 02/24/2018 [id number] / / [id number] Femur Nexgn E Left - [id number] Implanted:Qty: 1 on 11/19/2008 at OR [facility] Left: Knee [employer] [id number] / / [id number] Sut Steel 6 M654g - [id number] Implanted:Qty: 6 on 07/11/2011 at OR [facility] N/A: Chest DO NOT USE 01/09/2016 / / [id number] [employer]re[employer] Micro Incision Lens [id number] Implanted:Qty: 1 on 11/07/2013 at OR [facility] Right: Eye 06/25/2016 [id number] / [id number] / [id number] documented as of this encounter Visit Diagnoses Diagnosis Advanced care planning/counseling discussion- Primary Other specified counseling Metastases to the liver (HCC) Secondary malignant neoplasm of liver documented in this encounter Advance [...] the patient have Health Care Power of Supervisory Examiner? No Healthcare Agents on File Name Relationship Healthcare Agent Relationship Communication Soledad Peters Spouse Health Care Agen t (per Health Care Power of Supervisory Examiner document) [email or web address] Child First Alternate Health Care Agent (per Health Care Power of Supervisory Examiner document) [email or web address] Teams Import Customer Service Manager Relationship Specialty Start Date End Date Angel Quinteros DO [address] [place] [phone] PCP - General Family Medicine 06/14/23 documented as of this encounter"
--- OUTSIDE RECORDS SUMMARY | 2023-07-04 20:37 | External Medical Summary ---
Author Name Unknown Address Unknown Organization [id number]:[facility] - [address] [place] [address] Laboratory Report Ordering Provider Test Date Status VIRGIL PUGA 06/15/2023 07:15:48 Final Warfarin Therapy
INR: 2 .0-3.0 conventional anticoagulation
INR: 2.5- 3.5 high intensity anticoagulation Observation Date Value Abnormality Reference (Units ) Status PT 06/15/2023 07:15:48 13.3 11.6-15.2 (seconds) Final INR 06/15/2023 07:15:48 1.0 0.8-1.2 Final Performing Location [facility] - [address] [place] [address]
--- OUTSIDE RECORDS SUMMARY | 2023-07-04 20:37 | External Medical Summary | Summary of Care ---
Author Name Unknown Organization [facility] Address [address] [place] [address] Phone [phone] Care Team Providers Care Manager Telemarketing Name Role Phone Everardo SHAFER MD, Mirza Zeng Primary Care Provider [phone] Encounter Details Date Type Department Care Team (Late st Contact Info) Description 06/14/2023 Population Health External Data Unspecified Department Allergies Active Allergy Reactions Criticality Noted Date Comments Amoxicillin Rash 09/27/2005 At time of knee replacement Oxycodone Other (Please comment) 10/11/2012 Severe mental change Oxycodone-Acetaminophe n Other (Please comment) 03/15/2010 Severe mental change documented as of this encounter (statuses as of 06/14/2023) Medications Medication Sig Dispensed Refills Start Date End Date Status PRESERVISION AREDS 2 PO CAPS one by mouth twice a day 0 Active DIURETIC TITRATION PLAN If no improvement on day 3, contact heart failure managing provider or inderjit at home upper caser 1 Each 0 01/30/2019 Active aspirin enteric coated 81 MG TBECIndications:HTN, goal below 140/90 Take one pill daily 100 Tab 3 11/22/2019 Active Additional Information Patient taking differently:, Take one pill daily,Indications: blood pressure, Reported on 05/02/2022 zinc gluconate 50 MG Tablet Take 1 Tablet by mouth in the morning. 0 Active Magnesium 250 MG Tablet Take 1 Tablet by mouth in the morning. 0 Active Calcium 200 MG Tablet Take 200 mg by mouth daily. 0 Active oxygen IN GASIndications:Chron ic respiratory failure with [...] DAY 180 Capsule 3 04/04/2023 4 Active Fluticasone Propionate 50 MCG/ACT Nasal Suspension (Flonase) ADMINISTER TWO SPRAYS IN EACH NOSTRIL EVERY MORNING 48 g 2 04/15/2023 4 Active amLODIPine Besylate 5 MG Oral [...] control pain. 60 Tablet 0 06/08/2023 Active Baclofen 5 MG Oral Tablet (Lioresal)Indication s:Metastases to the liver (HCC) Take 1 Tablet by mouth in the morning and 1 Tablet in the evening. 60 Tablet 3 06/08/2023 Active Metoclopramide HCl 5 MG Oral [...] for Constipation. 30 Tablet 0 06/13/2023 Active Hospital, Clinic, or Other Facility Administered [...] DNR (do not resuscitate) 05/21/2023 Constipation 05/21/2023 POARCH (hard of hearing) 05/21/2023 Poor vision 05/21/2023 [...] lower extremities 11/24/2008 09/22/2015 Overview: seen at [facility] ER Anemia 05/13/2008 03/21/2017 Osteoarthritis of [...] mRNA, LNP-s, No Pre serve, 2-Dose Series ([employer]) 08/30/2020,08/02/2020 Pneumococcal Conjugate Vacc, 13 Valent (Prevnar) [...] Care Team (Late st Contact Info) Description 06/14/2023 11:00 AM EST Home Visit [facility] at [facility] [address] [facility] [address] Emeli Toledo, RN [address] [place] [address] 06/15/2023 9:00 AM EST Hospital Encounter OR [facility], Operating Room, [facility] - 4th Floor [address] [address] [facility], In And Out Surgery [address] [place] [address] 06/15/2023 9:00 AM EST Appointment Radiology, [facility] [address] [place] [address] 06/15/2023 9:00 AM EST - 06/15/2023 10:00 AM EST Surgery OR [facility], Operating Room, [facility] - 4th Floor [address] [place] [address] [facility], In And Out Surgery [address] [place] [address] PRE / POST CARE 06/20/2023 11:00 AM EST Office Visit Family Practice [facility] [address] [place] [address] Mirza Mcgee III, MD [address] [place] [address] 06/23/2023 9:00 AM EST Home Visit [facility] at [facility] [address] [place] [address] Amador Moreno PA-C [address] [place] [address] 06/28/2023 1:00 PM EST Office Visit Palliative Medicine [facility] [address] [place] [address] Valeria Nath MD [address] [place] [address] 07/06/2023 12:40 PM EST Office Visit Podiatry [facility] [address] [place] [address] Felicita Copeland DPM [address] [place] [address] 07/27/2023 12:40 PM EST Office Visit Gastroenterology, [facility] [address] [place] [phone] Trina Plaza DO [address] [place] [address] 08/03/2023 1:30 PM EST Office Visit [facility] [address] [place] [address] [place] [address] Ryan Cunningham MD [address] [place] [address] 09/11/2023 2:00 PM EDT Appointment Radiology, [facility] [address] [facility] [place] [phone] 09/11/2023 2:30 PM EDT PulmDiagnostic Pulmonary Function Lab [facility] [place] [address] [place] [address] [place] [place] [address] 09/11/2023 3:00 PM EDT Office Visit Pulmonary Medicine [facility] [place] [address] [place] [phone] Saul Moscoso MD [address] [place] [address] 10/25/2023 2:40 PM EDT [facility] [address] Mirza Mcgee III, MD [address] [place] [address] 05/02/2024 1:00 PM EST Office Visit Sleep Disorders, [facility] [address] [place] [address] Alesha John MD [address] [place] [address] Scheduled Procedures Name Priority Associated Diagnoses [...] Screening 02/03/2024 02/02/2023 CKD PHOS USE SMARTSET 58055 06/12/202405/26, 06/11/2023, 06/10/2023, Additional history exists CKD HGB USE SMARTSET 73672 06/13/202406/13, 06/13/2023, 06/12/2023, Additional history exists O2 ASSESSMENT COMPLETED IN PAST YEAR FOR COPD 06/13/2024 06/13/2023 Pneumococcal Vaccine: 65+ Years Completed 09/22/2015, 08/21/2001 VITAMIN D LEVEL ONCE IN A LIFETIME-USE SMARTSET# 79961 Completed 10/26/2022, 10/11/2021, 01/01/2019, Additional history exists Influenza Vaccine (FLU shot) Completed , 03/31/2022, 03/23/2021, Additional history exists GARDASIL-HPV IMMUNIZATION SERIES Aged Out No longer eligible based on patient's age to complete this topic MENINGOCOCCAL (MENACTRA/MENVEO) Aged Out No longer eligible based on patient's age to complete this topic documented as of this encounter Medical Devices Implanted Type Area Service Coordinator Device Identifier Shelf Expiration Date Model / Serial / Lot Femur Nexgn E Right - [id number] Implanted:Qty: 1 on 05/12/2008 at OR [facility] [place] Right: Knee [employer] 02/24/2018 [id number] / / [id number] Femur Nexgn E Left - [id number] Implanted:Qty: 1 on 11/19/2008 at OR [facility] [place] Left: Knee [employer] [id number] / / [id number] Sut Steel 6 M654g - [id number] Implanted:Qty: 6 on 07/11/2011 at OR [facility] [place] N/A: Chest DO NOT USE 01/09/2016 / / [id number] [employer]ision Lens [id number] Implanted:Qty: 1 on 11/07/2013 at OR [facility] Right: Eye 06/25/2016 [id number] / [id number] / [id number] documented as of this encounter Advance Directives [...] the patient have Health Care Power of Outreach Librarian? No Healthcare Agents on File Name Relationship Healthcare Agent Relationship Communication Soledad Peters Spouse Health Care Agen t (per Health Care Power of Outreach Librarian document) [email or web address] Adult Child First Alternate Health Care Agent (per Health Care Power of Outreach Librarian document) [email or web address] Manager Telemarketing Relationship Specialty Start Date End Date Mirza Mcgee III, MD [address] [place] [address] PCP - General Family Medicine 08/11/18 documented as of this encounter
--- OUTSIDE RECORDS SUMMARY | 2023-07-04 20:37 | External Medical Summary ---
Author Name Unknown Address Unknown Organization : Laboratory Report Ordering Provider Test Date Status [facility] 06/15/2023 07:48:45 Final Observation Date Value Abnormality Reference (Units ) Status Glucose Point of Care 06/15/2023 07:48:45 106 70-120 (mg/dL) Final Performing Location
--- OUTSIDE RECORDS SUMMARY | 2023-07-04 20:37 | External Medical Summary | Summary of Care ---
Author Name Unknown Organization [facility] Address [address] [place] [address] Phone [phone] Care Team Providers Care Craft Worker Name Role Phone Angel Quinteros DO Primary Care Provider + [phone] Reason for Visit * Auth/Cert Specialty Diagnoses / Procedures Referred By Raul jimenez Referred To Contact Diagnoses Metastases to the liver (HCC) Metastases to the liver (HCC) [C78.7] Procedures PRE / POST CARE Referral ID Status Reason Start Date Expiration Date Visits Re quested Visits Authorized [id number] Encounter Details Date Type Department Care Team (Latest Contact Info) Description 06/15/2023 7:21 AM EST - 06/15/2023 10:57 AM EST Hospital Encounter [facility], Operating Room, [facility] - 4th Floor [address] [address] [facility], In And Out Surgery [address] [place] [address] [address] Discharge Disposition: Home - Self Care Allergies [...] failure managing provider or [facility] at home manager case 1 Each 0 9 Active aspirin enteric coated 81 MG TBECIndications:HTN , goal below 140/90 Take one pill daily 100 Tab 3 0 Active Additional Information Patient taking differently:, Take one pill daily,Indications: blood pressure, Reported on 05/02/2022 oxygen IN GASIndications: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 0 Active Acetaminophen 500 MG Oral Tablet (Tylenol) Take 2 Tablets by mouth every 8 hours as needed for Pain, Breakthrough. 0 Active PRESERVISION AREDS 2 PO CAPS one by mouth twice a day 0 06/14/20 23 Discontinued zinc gluconate 50 MG Tablet Take [...] the evening. 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 of systemic steroids 10/18 History [...] extremities 11/24/2008 09/22/2015 Overview: seen at [facility] ER Anemia 05/13/2008 03/21/2017 Osteoarthritis of [...] Sign Reading Time Taken Comments Blood Pressure 130/70 06/15/2023 10:43 AM EST Pulse 68 06/15/2023 10:43 AM EST Temperature 36.4 C (97.5 F) 06/15/2023 10:[address] Respiratory Rate 20 06/15/2023 10:43 AM EST Oxygen Saturation 92% 06/15/2023 10:43 AM EST Inhaled Oxygen Concentration - - Weight 96.8 kg (213 lb 6.5 oz) 06/15/2023 7:42 A M EST Height 172.7 cm (5' 7.99") 06/15/2023 7:42 AM ES T Body Mass Index 32.46 06/15/2023 7:42 AM EST documented in this encounter Functional Status Functional Status Response Date of Assess ment Are you deaf or do you have serious difficulty h earing? Yes 05/21/2023 Are you blind or do you have serious difficulty seeing, even when wearing glasses? Yes 05/21/2023 Do you have serious difficul ty walking or climbing stairs? (5 years old or older) Yes 05/21/2023 Do you have difficulty dress ing or bathing? (5 years old or older) Yes 05/21/2023 Because of a physical, menta l, or emotional condition, do you have difficulty doing errands alone such as visiting a doctor s office or shopping? (15 years old or older) Yes 05/21/20 23 Cognitive Status Response Date of Assessm ent Because of a physical, menta l, or emotional condition, do you have serious difficulty concentrating, remembering, or making decisions? (5 years old or older) No 05/21/2023 documented as of this encounter Discharge Instructions * Discharge Instr - AVS* Pam Olson Jr., MD - 06/15/2023 10:07 AM EST INTERVENTIONAL RADIOLOGY PATIENT INSTRUCTIONS - POST PROCEDURE [address] [address] Name: Dedrick Peters Location: [facility]/OR Date: 06/15/2023 Time: 10:07 AM Special Instructions: Liver Biopsy Care After Your Biopsy If you experience pain or discomfort at the site you may use a cold pack on the site and/or take acetaminophen (Tylenol) or your preferred pain medicine as directed. Avoid strenuous activity for 24 to 48 hours after the procedure. Do not lift anything heavier than 10 pounds for 3 days after the procedure. Gradually increase your activity after 24 to 48 hours after the procedure. Keep the dressing clean and dry; change as needed. Dressing can be removed in 24 hours. You may shower after 24 hours. Gently wash the area and pat it dry. Please DO NOT take a bath, soak in a hot tub, or swim until the wound is completely healed. Follow Up Your requesting physician will contact you with the results of your test. Please allow 5 to 7 business days for your results. Please check Attensity messages or contact the referring physician for results. When to Call Interventional Radiology Call Interventional Radiology right away if you have any of the following: Fever above 100 degrees Fahrenheit Increased bleeding, redness, swelling, warmth, or discharge at the incision site. Constant or increasing pain, numbness, coldness, or tingling around the incision area. Vomiting or nausea that does not go away If at any time you experience any of the following or feel you are having a medical emergency, [id number] for emergency assistance. Chest Pain Sudden, severe shortness of breath Rapid heart rate Sudden onset of weakness Coughing up blood See your referring physician for follow-up appointment. Do not smoke or use tobacco products in any way! If you feel suicidal or homicidal, please call the crisis hotline at 2-390-724-FJPX ([phone]) MODERATE SEDATION You may have received medication that made you comfortable/sedated you during your procedure. This is considered moderate sedation. This medication was given to relax you. You may also not remember having the procedure done. It may take up to 24 hours for this medication to be out of your system. Because of this, you should observe the following for the next 24 hours: Do not drink alcohol or take depressant drugs. Do not operate any type of machinery that requires hand-eye coordination. Do not sign any legal papers or documents. Do not make any financial decisions. You should be in the presence of an adult for the remainder of the day. If you are experiencing any problems related to your procedure, you should contact the Interventional Radiology physician unless otherwise directed. documented in this encounter Progress Notes * Pam Olson Jr., MD - 06/15/2023 10:09 AM EST [place] [id number] OUTPATIENT SURGERY DISCHARGE SUMMARY NOTE Name: Dedrick Peters Location: [facility] Date: 06/15/2023 Time: 10:09 AM Surgery Date: 06/15/2023 Procedure: Procedure(s): PRE / POST CARE N/A Surgeon: Surgeon(s): [facility], In And Out Surgery Discharge Diagnosis: Liver bx After examination of this patient, I have determined he is ready for discharge to home when the patient meets criteria. Discharge instructions were given to the patient. * Pam Olson Jr., MD - 06/15/2023 9:59 AM EST SEDATION NOTE Indication: The patient is a(n) 88 year old male with liver lesions. Location: [facility] Sedating physician: Whitney Procedure physician: Whitney Procedure(s) Performed: CT guided liver bx Sedation was accomplished using fentanyl and versed administered . Any and all anesthetic medications were delivered under the direct supervision of a provider. Actual level of sedation: Moderate Patient tolerated procedure well. Vitals and oxygen saturations stable throughout. Adverse Outcome(s) during the procedure: None Sedation Start Time: 913 Sedation End Time: 949 Post Sedation Evaluation: Cardiovascular status: acceptable Level of consciousness: awake and alert Airway patency: patent Distress - NAD Hydration status - well hydrated Nausea/vomiting - not present Pain Evaluation Pain Assessment Flowsheet Row Most Recent Value Pain Assessment Scale [facility] 0-10 Pain Score 7 (severe pain) Vital Signs: Temp: 36 C (96.8 F) (06/15 742) BP: 176/93 (06/15 945) Pulse: 64 (06/15 945) Resp: 14 (06/15 945) SpO2: 97 % (06/15 945) I have personally examined the patient, prescribed the necessary medications as charted, and certify that Dedrick Peters is recovered for safe discharge from my face to face care. 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 LLE s/p TKA:3-6M coumadin Pneumonia Prostate cancer (HCC) 01/11/2016 Pulmonary arterial hypertension (HCC) Retinal edema 04/01/2010 Sleep apnea, obstructive SPINAL STENOSIS Mild L4-5 11/28/2007 Vitreous degeneration 03/07/02 os Past Surgical History: Procedure Laterality Date ARTHROPLASTY KNEE TOTAL 05/12/2008 ARTHROPLASTY KNEE TOTAL performed by KOSTAS YEBOAH at [place] [facility] ARTHROPLASTY KNEE TOTAL 11/19/2008 ARTHROPLASTY KNEE TOTAL performed by KOSTAS YEBOAH at [facility] ARTHROPLASTY KNEE TOTAL bilateral BRONCHOSCOPY, DIAGNOSTIC 06/22/2011 BRONCHOSCOPY DIAGNOSTIC WITH OR WITHOUT WASHING performed by PAM PRATT at ENDOSCOPY [facility] COLONOSCOPY W/ BIOPSY (RECTUM) 04/05/2007 hyperplastic polyps--repeat 5 years COLONOSCOPY W/ LESION REMOVAL, SNARE 04/05/2007 path pending COLONOSCOPY W/ SUBMUCOUS INJ 04/05/2007 COLONOSCOPY, DIAGNOSTIC (RECTUM) 12/20/2013 COLONOSCOPY FLEXIBLE PROXIMAL DIAGNOSTIC performed by Arnoldo Oseguera MD at ENDOSCOPY [facility] EGD, FLEXIBLE, DIAGNOSTIC N/A 04/25/2018 hiatal hernia/moderate Schatzki ring, dilated/biopsies show Reveles's esophagitis/recall 1 year/ESOPHAGOGASTRODUODENOSCOPY (EGD), FLEXIBLE, TRANSORAL, DIAGNOSTIC performed by Ulices Chaney MD at [facility] EGD, FLEXIBLE, DIAGNOSTIC N/A 05/21/2019 mild schatzki ring, dilated/small hiatal hernia/multiple gastric polyps/biopsies from esophagus andstomach show inflammatory changes/ESOPHAGOGASTRODUODENOSCOPY (EGD), FLEXIBLE, TRANSORAL, DIAGNOSTICperformed by Trina Plaza DO at [facility] FLUORO UPPER GI W AIR WO KUB 01/2010 small-mod HH w some reflux INJECT DX/THER SUBSTANCE INTERLAMINAR LUMBAR/SACRAL W IMAGE GUIDE 01/30/2017 INJECTION SPINE LUMBAR OR SACRAL performed by John Ware DO at OR [facility] INJECT DX/THER SUBSTANCE INTERLAMINAR LUMBAR/SACRAL W IMAGE GUIDE 02/16/2017 INJECTION SPINE LUMBAR OR SACRAL performed by John Ware DO at OR [facility] INJECTION OF EYE DRUG 04/01/2010 #1 Avastin OS; Dr. Davis INJECTION OF EYE DRUG 04/30/2010 #2 Avastin OS; Dr. Davis INJECTION OF EYE DRUG 06/01/2010 #3 Avastin OS; Dr. Davis INJECTION OF EYE DRUG 06/29/2010 #4 Avastin OS; Dr. Davis INJECTION OF EYE DRUG 08/10/2010 #5 Avastin OS; Dr. Davis INJECTION OF EYE DRUG 11/02/2010 #6 Avastin OS, Dr. Davis INJECTION OF EYE DRUG 11/26/2010 #7 Avastin OS, Dr. Davis INJECTION OF EYE DRUG 01/10/2011 #8 Avastin OS, Dr. Davis INJECTION OF EYE DRUG 03/08/2011 #9 Avastin OS, Dr. Davis INJECTION OF EYE DRUG 04/06/2011 #10 Avastin OS, Dr. Davis INJECTION OF EYE DRUG 05/24/2011 #11 Avastin OS, Dr. Davis INJECTION OF EYE DRUG 08/02/2011 #12 Avastin OS, Dr. Davis INJECTION OF EYE DRUG 11/14/2011 #1 Eylea OS; Dr. Davis INJECTION OF EYE DRUG 01/12/2012 #2 Eylea OS, Dr. Davis INJECTION OF EYE DRUG 03/12/2012 #3 Eylea OS, Dr. Davis INJECTION OF EYE DRUG 04/23/2012 #4 Eylea OS, Dr. Davis INJECTION OF EYE DRUG 06/05/2012 #5 Eylea OS, INJECTION OF EYE DRUG 07/19/2012 #6 Eylea OS, INJECTION OF EYE DRUG 08/23/2012 #7 Eylea OS, Dr. Davis INJECTION OF EYE DRUG 09/20/2012 #8 Eylea OS, INJECTION OF EYE DRUG 11/23/2012 #1 Lucentis 0.5mg OS, INJECTION OF EYE DRUG 01/23/2013 #2 Lucentis 0.5mg OS, Dr. Davis ([facility] [place]# [id number]) INJECTION OF EYE DRUG 02/27/2013 #3 LUCENTIS 0.5mg OS, Dr. Davis ([facility] [place]:[id number]) INJECTION OF EYE DRUG 04/10/2013 #4 Lucentis 0.5mg OS, Dr. Davis INJECTION OF EYE DRUG 05/08/2013 #5 Lucentis 0.5mg OS, [facility]#[id number] INJECTION OF EYE DRUG 06/12/2013 #6 Lucentis 0.5mg OS, Dr. Davis INJECTION OF EYE DRUG 08/02/2013 #7 Lucentis 0.5mg OS, Dr. Davis INJECTION OF EYE DRUG 09/17/2013 #8 Lucentis 0.5mg OS, Dr. Davis INJECTION OF EYE DRUG 11/11/2013 #9 Lucentis 0.5mg OS, Dr. Davis ([facility] [place]: [id number]) INJECTION OF EYE DRUG 02/07/2014 #10 Lucentis 0.5mg OS, Dr. Davis ([facility] [place]: [id number]) INJECTION OF EYE DRUG 03/28/2014 #11 Lucentis 0.5mg OS, Dr. Davis INJECTION OF EYE DRUG Left 06/13/2014 # 12 Lucentis 0.5mg OS, Dr. Davis INJECTION OF EYE DRUG Left 07/28/2014 # 13 Lucentis 0.5mg OS, INJECTION OF EYE DRUG Left 09/09/2014 # 14 Lucentis 0.5mg OS, INJECTION OF EYE DRUG Left 11/06/2014 # 15 Lucentis 0.5mg OS, Dr. Davis INJECTION OF EYE DRUG Right 06/27/2018 # 1 Lucentis 0.5mg OD, Dr. Davis INJECTION OF EYE DRUG Right 07/31/2018 #2 Lucentis 0.5mg OD, Dr. Davis INJECTION OF EYE DRUG Right 09/11/2018 # 3 Lucentis 0.5 mg OD, INJECTION OF EYE DRUG Right 10/23/2018 # 4 Lucentis OD, Dr. Davis INJECTION OF EYE DRUG Right 11/29/2018 # 5 Lucentis 0.5mg OD, INJECTION OF EYE DRUG Right 01/24/2019 # 6 Lucentis 0.5 mg. OD INJECTION OF EYE DRUG Right 03/21/2019 # 7 Lucentis 0.5mg OD, INJECTION OF EYE DRUG Right 05/09/2019 # 8 Lucentis 0.5mg OD, INJECTION OF EYE DRUG Right 07/04/2019 # 9 Lucentis 0.5 mg OD, Dr. Davis INJECTION OF EYE DRUG Right 08/22/2019 # 10 Lucentis 0.5mg OD, Dr. Davis INJECTION OF EYE DRUG Right 10/10/2019 # 11 Lucentis 0.5mg OD, Dr. Davis INJECTION OF EYE DRUG Right 11/28/2019 # 12 Lucentis 0.5mg OD, Dr. Davis INJECTION OF EYE DRUG Right 01/09/2020 # 13 Lucentis 0.5mg OD, INJECTION OF EYE DRUG Right 2020 # 14 Lucentis 0.5mg OD, Dr. Davis INJECTION OF EYE DRUG Right 05/07/2020 # 15 Lucentis OD, INJECTION OF EYE DRUG Right 07/16/2020 # 16 Lucentis 0.5mg OD, Dr. Davis INJECTION OF EYE DRUG Right 08/28/2020 # 17 Lucentis OD, INJECTION OF EYE DRUG Right 09/29/2020 # 18 Lucentis 0.5mg OD, Dr. Davis INJECTION OF EYE DRUG Right 10/28/2020 #[address] Davis INJECTION OF EYE DRUG Right 12/29/2020 # 20 Lucentis 0.5mg, INJECTION OF EYE DRUG Right 02/24/2021 # 21 Lucentis 0.5mg OD, INJECTION OF EYE DRUG Right 04/13/2021 # 22 Lucentis 0.5mg OD, INJECTION OF EYE DRUG Right 05/27/2021 # 23 Lucentis 0.5mg OD, Dr. Davis INJECTION OF EYE DRUG Right 07/14/2021 # 24 Lucentis 0.5mg OD, Dr. Davis INJECTION OF EYE DRUG Right 08/27/2021 # 25 Lucentis 0.5mg OD, Dr. Davis INJECTION OF EYE DRUG Right 10/11/2021 # 26 Lucentis 0.5mg OD, Dr. Davis INJECTION OF EYE DRUG Right 11/29/2021 #27 Lucentis OD, Dr Davis INJECTION OF EYE DRUG Right 01/17/2022 # 28 Lucentis 0.5mg OD, Dr. Davis INJECTION OF EYE DRUG Right 03/07/2022 # 29 Lucentis 0.5mg OD, Dr. Davis INJECTION OF EYE DRUG Right 04/25/2022 # 30 Lucentis 0.5mg OD, Dr. Davis INJECTION OF EYE DRUG Right 06/13/2022 #31 Lucentis 0.5 OD SUSAN INJECTION OF EYE DRUG Right 07/28/2022 # 32 Lucentis ).5mg OD, Dr. Davis INJECTION OF EYE DRUG Right 09/15/2022 # 32 Lucentis 0.5mg OD, Dr. Davis INJECTION OF EYE DRUG Right 11/08/2022 # 33 Lucentis 0.5mg OD, Dr. Davis INJECTION OF EYE DRUG Right 12/20/2022 # 34 Lucentis 0.5mg OD, Dr. Davis INJECTION OF EYE DRUG Right 02/08/2023 # [address] Davis INJECTION OF EYE DRUG Right 03/27/2023 #36 Lucentis 0.5mg OD; Dr Davis INTERSTITIAL RADIATION APPLICATION, COMPLEX MISCELLANEOUS ORDER ([facility] ONLY) 09/07/2010 Consent signed-Avastin OS, Dr. Davis MISCELLANEOUS ORDER ([facility] ONLY) 09/13/2011-09/12/2012 Avastin consent signed OS; MISCELLANEOUS ORDER ([facility] ONLY) 11/14/2011-11/13/2012 EYLEA CONSENT SIGNED OS; DR DAVIS MISCELLANEOUS ORDER ([facility] ONLY) 11/23/2012-11/23/2013 Eylea OS Consent signed, Dr.Cessna URRUTIACELLANEOUS ORDER ([facility] ONLY) 11/23/2012-11/23/2013 Lucentis 0.5mg OS, consent signed, Dr.Cessna ZULUAGA ORDER ([facility] ONLY) 06/2011 Port placement MISCELLANEOUS ORDER ([facility] ONLY) 11/11/2013-11/11/2014 LUCENTIS 0.5MG CONSENT OS SIGNED;DR SUSAN ZULUAGA ORDER ([facility] ONLY) Left 12/23/2014-12/24/2015 LUCENTIS 0.5MG CONSENT SIGNED OS; DR SUSAN ZULUAGA ORDER ([facility] ONLY) Bilateral 06/27/2018-06/27/2019 LUCENTIS CONSENT OU SIGNED, Dr. Susan ZULUAGA ORDER ([facility] ONLY) ACT 112 signed, 09/11/2018 MISCELLANEOUS ORDER ([facility] ONLY) Right 08/22/2019-08/22/2020 LUCENTIS 0.5MG CONSENT OU SIGNED, Dr. Davis MRI L SPINE W WO CONTRAST 06/2004 djd, no stenosis. see result NEEDLE/PUNCH BIOPSY OF PROSTATE 01/04/2016 Prostate,Needle/Punch Biopsy OTHER ACT 112 signed 08/28/2020 OTHER Right Lucentis Consent signed OD, and 08/28/2020-08/28/2021 OTHER (INFORMATION) Right LUCENTIS 0.5MG OD CONSENT DR. DAVIS/ELLEN EXP. 08/27/22 OTHER (INFORMATION) LUCENTIS OU CONSENT SIGNED Dr. Davis/Ellen (exp 09-16-23) RADIATION THERAPY MANAGEMENT 12/21/2011 radiation treatments x 17 (chest) Oncologist Dr. Izquierdo REMOVE CATARACT, INSERT LENS PROSTH 01/02/2013 OS-Dr. 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 Tobacco Use Smoking status: Never Smokeless tobacco: Never Vaping Use Vaping Use: Never used Substance and Sexual Activity Alcohol use: No Drug use: No Sexual activity: Yes Partners: Female Other Topics Concern Service No Blood Transfusions No Caffeine Concern Not Asked Occupational Exposure Not Asked Hobby Hazards Not Asked Sleep Concern Not Asked Stress Concern Not Asked Weight Concern Not Asked Special Diet Not Asked Back Care Not Asked Exercise No Comment: "active" Bike Helmet Yes Seat Belt Yes Self-Exams Not Asked Social History Narrative Dedrick Peters denies falls or difficulties with ambulation. 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 Social Determinants of Health Financial Resource Strain: Not on file Food Insecurity: No Food Insecurity (05/29/2023) Hunger Vital Sign Worried About Running Out of Food in the Last Year: Never true Ran Out of Food in the Last Year: Never true Transportation Needs: Not on file Physical Activity: Not on file Stress: Not on file Social Connections: Not on file Intimate Partner Violence: Not on file Housing Stability: Not on file Family History Problem Relation Age of Onset Stroke Mother age 77 Hypertension Mother Alzheimer's disease Mother Diabetes Mother Arthritis Mother Cancer Mother Bladder Stroke Brother Hypertension Brother Heart disease Brother h/o CABG Cancer Brother Bladder, age 89 Hypertension Father Stroke Father age 71 COPD Father Emphysema Father Lung Disorder Father 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 Other (Other) Other no known family hx of skin disorders or skin ca Review of patient's allergies indicates: Allergen Reactions Amoxicillin Rash At time of knee replacement Oxycodone Other (Please comment) Severe mental change Percocet [Oxycodone-Acetaminophen] Other (Please comment) Severe mental change Current Facility-Administered Medications Medication Dose Route Frequency Provider Last Rate Last Admin isolyte-S pH 7.4 infusion Intravenous Continuous Pam Olson Jr., MD 10 mL/hr at 06/15/23 76870,000 mL at 06/15/23 0745 REVIEW OF SYSTEMS: Constitutional: (-) fever chills sweats or weight loss Eyes: (-) negative, no amaurosis fugax, pain, blurred vision, or redness ENT: (-) negative: no headaches, vertigo, hearing loss, sinus, ear, or throat problems Cardiovascular: (-) negative: no chest pain, dyspnea, syncope, or palpitations Pulmonary: (-) negative: no cough, wheezing, or shortness of breath OBJECTIVE: BP 165/86 | Pulse 64 | Temp 36 C (96.8 F) (Temporal Artery) | Resp 18 | Ht 1.727 m (5' 7.99") |Wt 96.8 kg (213 lb 6.5 oz) | SpO2 95% | BMI 32.46 kg/m | BSA 2.15 m PHYSICAL EXAM: Constitutional: no acute distress HEENT: normal: normocephalic, atraumatic; no masses, tenderness, or adenopathy CV: normal rate and rhythm, no murmur, gallops or rub Chest: normal respiratory effort, lungs clear to auscultation and percussion LABS: CBC Results: PT INR Results: Results for orders placed or performed in visit on 06/15/23 PT INR Result Value Ref Range Prothrombin Time 13.3 11.6 - 15.2 seconds INR 1.0 0.8 - 1.2 *Note: Due to a large number of results and/or encounters for the requested time period, some results have not been displayed. A complete set of results can be found in Results Review. BUN Results: Lab Results Component Value Date/Time BUN - [facility] 13 06/13/2023 05:31 AM BUN - [facility] 10 06/12/2023 06:10 AM BUN - [facility] 10 06/11/2023 05:07 AM BUN - [facility] 17 01/22/2020 02:32 PM BUN - [facility] 15 08/06/2019 02:32 PM BUN - [facility] 15 01/10/2019 11:50 AM Creatinine Results: Lab Results Component Value Date/Time CREATININE - [facility] 0.9 06/13/2023 05:31 AM CREATININE - [facility] 0.8 06/12/2023 06:10 AM CREATININE - [facility] 0.8 06/11/2023 05:07 AM CREATININE - [facility] 1.2 01/22/2020 02:32 PM CREATININE - [facility] 1.1 08/06/2019 02:32 PM CREATININE - [facility] 1.1 01/10/2019 11:50 AM CREATININE, RANDOM URINE - [facility] 147 10/26/2022 11:56 AM CREATININE, RANDOM URINE - [facility] 107 03/17/2022 11:04 AM CREATININE-OUTSIDE LAB 1.05 09/10/2017 12:00 AM Potassium Results: Lab Results Component Value Date/Time POTASSIUM - [facility] 3.2 (L) 06/13/2023 05:31 AM POTASSIUM - [facility] 3.4 (L) 06/12/2023 06:10 AM POTASSIUM - [facility] 3.3 (L) 06/11/2023 05:07 AM POTASSIUM - [facility] 3.6 01/22/2020 02:32 PM POTASSIUM - [facility] 3.3 (L) 08/06/2019 02:32 PM POTASSIUM - [facility] 3.5 01/10/2019 11:50 AM POTASSIUM, WHOLE BLOOD - [facility] 3.9 07/11/2011 08:24 AM POTASSIUM-OUTSIDE LAB 3.3 (A) 09/10/2017 12:00 AM INFORMED CONSENT: Yes PRE-SEDATION ASSESSMENT: Liver Bx Level of sedation planned: Moderate Patient's allergies reviewed: Yes H&P Review / Interval Note Documentation: I have reviewed the H&P previously performed, examined the patient today, and there are no new findings. Difficulty with sedation / anesthesia: No Sleep apnea: No History of snoring: No History of difficult intubation: No Decreased ROM neck flexion/extension: No Tracheal deviation: No Decreased ability to open mouth / TMJ: No Loose teeth / dentures / partial: No Congenital deformities / abnormalities: No Dysphagia: No Mallampati Classification: II - soft palate, uvula, fauces visible Chest: Clear Heart: Regular Rhythm ASA Risk Stratification ([facility]): ASA 2 - Mild systemic disease, no functional limitations The patient was identified and the procedure verified: Yes IMPRESSION/PLAN: Liver bx Pam Olson Jr, MD documented in this encounter Nursing Notes * Maty Del Cid RN - 06/15/2023 10:55 AM EST [address] [address] SameDay Surgery Discharge Note Name: Dedrick Peters Date: 06/15/2023 Time: 10:55 AM Discharge Disposition: Home Responsible adult as escort home: daughter Transport Mode: Wheelchair Accompanied by: maty Del Cid RN To: Car Belongings with patient: Yes Patient meets criteria to be transferred or discharged. * Li Ortega RN - 06/15/2023 9:09 AM EST Procedure: CT Guided Liver Lesion Biopsy Pt placed on procedure table with comfort measures intact. Hemodynamic monitoring placed and initiated, VS stable. Pt denies any complaints at current time. CT product/industry consultant images obtained. Timeout performed by Dr. Pam Olson at 0935. Dr. Olson reassessed patient immediately prior to moderate sedation administration and procedure start. Patient prepped for procedure. Skin around biopsy area cleaned with chloraprep and dried. 10 mL 1% buffered lidocaine administered locally to right upper quadrant by . Access obtained. Images obtained. Access advanced. Images obtained. Biopsy obtained. Slides prepared and given to sanitation laborer who used telecytology method to verify adequacy of cellular material. Access removed. Pressure applied by . Gauze and Tegaderm applied to site. Post procedure image obtained. Patient tolerated procedure well without complications. All wires, catheters, sheaths and other devices have been inspected prior to the procedure for damage. All items not intended to remain in the patient have been inspected, accounted for and have beenremoved from the patient at the end of the procedure. This has been confirmed by the operating physician. Pt recieved moderate sedation for their procedure, the patient recieved fentanyl and versed. Start 931 End 947 4 core biopsies obtained and given to cytology Total medications given Versed: 1 mg Fentanyl: 75 mcg 1% buffered lidocaine: 10 mL documented in this encounter OR Notes * Operative Report Brief - Pam Olson Jr., MD - 06/15/2023 9:58 AM EST [facility] [address] OPERATIVE REPORT - BRIEF Name: Dedrick Peters Date: 06/15/2023 Time: 9:58 AM Location: OR H Service: Date of Operation: 06/15/2023 Pre-op Diagnosis: Liver lesions Post-op Diagnosis: Liver lesions Operation: CT guided Liver biopsy Surgeon: [facility], In And Out Surgery Assistants: None Anesthesia: moderate Drains: none Estimated Blood Loss: 0 ml. IV Fluids: 0 ml. Urine Output: N/A Specimens/Disposition: None Apparent Intraoperative Complications: NONE Patient Condition: stable Disposition: In and Out recovery unit Attestation: I performed the procedure documented in this encounter Plan of Treatment Upcoming Encounters Date Type Department Care Team (Late st Contact Info) Description 06/20/2023 11:00 AM EST Office Visit Family Practice [facility] [address] [place] [address] Mirza Mcgee III, MD 200 [place] [address] 06/23/2023 9:00 AM EST Home Visit [facility] 132 [facility] [address] Amador Moreno PA-C 132 [place] [address] 06/27/2023 12:30 PM EST Home Visit [facility] 132 [facility] [place] [address] Emeli Toledo RN 132 [place] [address] 06/28/2023 1:00 PM EST Office Visit Palliative Medicine [facility] 200 [place] [address] Valeria Nath MD [address] [place], [place] [address] [address] 07/06/2023 12:40 PM EST Office Visit Podiatry [facility] [address] [place] [address] Felicita Copeland, SHAILESH [address] [place] [address] 07/27/2023 12:40 PM EST Office Visit Gastroenterology, [facility] [phone] Trina Plaza DO [address] [place] [address] 08/03/2023 1:30 PM EST Office Visit Urology [facility]cl[facility] [address] [place] [address] [place] [address] Ryan Cunningham MD [address] [place] [address] [place] [address] 09/11/2023 2:00 PM EDT Appointment Radiology, [facility] 400 [facility] [place]ILELDERTONVANES[place] [phone] 09/11/2023 2:30 PM EDT PulmDiagnostic Pulmonary Function Lab [facility] [address] [place] [address] [address], [address] [place] [address] 09/11/2023 3:00 PM EDT Office [facility] [address] [place] [phone] Saul Moscoso MD [address] [place] [address] 10/25/2023 2:40 PM EDT Office Visit [facility] 200 [facility] [place] [address] Everardo Mirza SHAFER MD 200 [facility], [place] [address] 05/02/2024 1:00 PM EST Office Visit Sleep Disorders, [address] [place] [address] Alesha John MD 400 [place] [address] Pending Results Name Type Priority Associated Diagnoses Date /Time CYTOLOGY Pathology Routine 06/15/2023 9:3 0 AM EST Scheduled Orders Name Type Priority Associated Diagnoses Orde r Schedule CYTOLOGY Pathology Routine One Time for 1 Occurrences starting 06/15/2023 until 06/15/2023, 1 completed Scheduled Procedures Name Priority Associated Diagnoses Date/Ti [...] TO SMARTSET #1146) 06/01/2023 HbA1c 10/14/2023 04/14/2023, 05/0 08/2022, 06/10/2022, Additional history exists Albumin/Creatinine Ratio 10/27/2023 10/26/2022, 02/25 DXA Scan 11/03/2023 11/02/2021, 07/27, 04/11/2017, Additional history exists Depression Screening 02/03/2024 02/02/2023 CKD PHOS USE SMARTSET 63012 06/12/202405/26, 06/11/2023, 06/10/2023, Additional history exists CKD HGB USE SMARTSET 80728 06/13/202406/13, 06/13/2023, 06/12/2023, Additional history exists O2 ASSESSMENT COMPLETED IN PAST YEAR FOR COPD 06/15/2024 06/15/2023 Pneumococcal Vaccine: 65+ Years Completed 09/22/2015, 08/21/2001 VITAMIN D LEVEL ONCE IN A LIFETIME-USE SMARTSET# 83731 Completed 10/26/2022, 10/11/2021, 01/01/2019, Additional history exists Influenza Vaccine (FLU shot) Completed , 03/31/2022, 03/23/2021, Additional history exists GARDASIL-HPV IMMUNIZATION SERIES Aged Out No longer eligible based on patient's age to complete this topic MENINGOCOCCAL (MENACTRA/MENVEO) Aged Out No longer eligible based on patient's age to complete this topic documented as of this encounter Medical Devices Implanted Type Area Gasoline Catalyst Operator Device Identifier Shelf Expiration Date Model / Serial / Lot Femur Nexgn E Right - [id number] Implanted:Qty: 1 on 05/12/2008 at OR [facility] [facility] Right: Knee [employer] 02/24/2018 [id number] / / [id number] Femur Nexgn E Left - [id number] Implanted:Qty: 1 on 11/19/2008 at OR [facility] [place] Left: Knee [employer] [id number] -[id number] / / [id number] Sut Steel 6 M654g - [id number] Implanted:Qty: 6 on 07/11/2011 at OR [facility] [place] N/A: Chest DO NOT USE 01/09/2016 / / [id number] Akreos Ao Micro Incision Lens Mi60l Implanted:Qty: 1 on 11/07/2013 at OR [facility] Right: Eye 06/25/2016 [id number] / [id number] / [id number] documented as of this encounter Procedures Procedure Name Priority Date/Time Associated Diagnosis Comments GLUCOSE METER, POINT OF CARE BLADIMIR 06/15/2023 7:48 AM EST documented in this encounter Results * GLUCOSE METER, POINT OF CARE (06/15/2023 7:48 AM EST) Glucose Meter 106 70 - 120 mg/dL 06/15/2023 7:51 AM EST [facility] Blood Whole blood specimen / Unknown 06/15/2023 7:48 AM EST 06/15/2023 7:51 AM EST In And Out Surgery [facility] LAB POINT OF CARE TEST DOCKED DEVICE UNSOLICITED RESULTS [facility] 400 [place] [address] documented in this encounter Administered Medications Inactive Administered Medications - up to 3 most recent administrations Medication Order MAR Action Action Date Dose Rate Site fentaNYL (PF) inj ONCE PRN NARRATOR, Starting on Luba 06/15/23 at 0933, Until Luba 06/15/23 at 0942 Given 06/15/2023 9:42 AM EST 25 mcg Given 06/15/2023 9:33 AM EST 50 mcg isolyte-S pH 7.4 infusion Intravenous, Plasma-LYTE 148, isolyte-S, and isolyte-S pH 7.4 are considered equivalent - including for MAR barcode scanning., CONTINUOUS, Starting on Luba 06/15/23 at 0830, Until Luba 06/15/23 at 1458, Pre-Op New Bag 06/15/2023 7:45 AM EST 1,000 mL 10 mL/ hr morphine sulfate inj ONCE PRN NARRATOR, Starting on Luba 06/15/23 at 0934, Until Luba 06/15/23 at 0934 Given 06/15/2023 9:34 AM EST 1 mg documented in this encounter Active and Recently Administered Medications Times are shown in EST. Continuous Medication Order 06/13/2023 06/14/2023 06/15/2023 isolyte-S pH 7.4 infusion Intravenous, Plasma-LYTE 148, isolyte-S, and isolyte-S pH 7.4 are considered equivalent - including for MAR barcode scanning., CONTINUOUS, Starting on Luba 06/15/23 at 0830, Until Luba 06/15/23 at 1458, Pre-Op 0745 (New Bag - Prov ider: Anyi Jenkins, VEDA) PRN Medication Order 06/13/2023 06/14/2023 06/15/2023 fentaNYL (PF) inj (COMPLETED) ONCE PRN NARRATOR, Starting on Luba 06/15/23 at 0933, Until Luba 06/15/23 at 0942 0933 (Given - Provid er: Lindy Guzman RN)0942 (Given - Provider: Lindy Guzman RN) morphine sulfate inj (COMPLETED) ONCE PRN NARRATOR, Starting on Luba 06/15/23 at 0934, Until Luba 06/15/23 at 0934 0934 (Given - Provid er: Lindy Guzman RN) documented in this encounter Advance Directives Latest [...] the patient have Health Care Power of Retail Operations Specialist? No Healthcare Agents on File Name Relationship Healthcare Agent Relationship Communication Soledad Peters Spouse Health Care Agen t (per Health Care Power of Retail Operations Specialist document) [email or web address] Huma Hernández Adult Child First Alternate Health Care Agent (per Health Care Power of Retail Operations Specialist document) [email or web address] Care Teams Craft Worker Relationship Specialty Start Date End Date Angel Quinteros DO [address] [place] [phone] PCP - General Family Medicine 06/14/23 documented as of this encounter
--- OUTSIDE RECORDS SUMMARY | 2023-07-04 20:37 | External Medical Summary | Summary of Care ---
Author Name Unknown Organization [facility] Address [address] [place] [address] Phone [phone] Care Team Providers Care Electric Frying Pan Repairer Name Role Phone Angel Quinteros DO Primary Care Provider [phone] Encounter Details Date Type Department Care Team (Late st Contact Info) Description 06/16/2023 Telephone [facility] Palliative Medicine 400 [facility] [place] [phone] Maddison Garcia CRNP 400 [place] [address] Allergies Active Allergy Reactions Criticality Noted [...] failure managing provider or ising at home geriatric case manager 1 Each 0 01/30/2019 Active [...] DNR (do not resuscitate) 05/21/2023 Constipation 05/21/2023 CHALKYITSIK (hard of hearing) 05/21/2023 Poor vision 05/21/2023 [...] lower extremities 11/24/2008 09/22/2015 Overview: seen at [facility] ER Anemia 05/13/2008 03/21/2017 Osteoarthritis [...] obstruction 2 08/23/2018 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 SITE 02/2019 Overview: knees documented as of this encounter (statuses as of 06/16/2023) Immunizations Name Administration Dates Next Due COVID-19 mRNA, LNP-s, No Pre serve, 2-Dose Series (Financetesetudes) 08/30/2020,08/02/2020 Pneumococcal Conjugate Vacc, 13 Valent (Prevnar) [...] x1 and left a voicemail at 9:27AM. documented in this encounter Plan of Treatment Upcoming Encounters Date Type Department Care Team (Late st Contact Info) Description 06/20/2023 11:00 AM EST Office Visit Family Practice [facility] 200 [place] [address] Mirza Mcgee III, MD 200 [place] [address] 06/23/2023 9:00 AM EST [facility] [place] 132 [facility] [place] [address] Amador Moreno PA-C [facility] [place] [address] 06/27/2023 12:30 PM EST [facility] Visit [facility] 132 [facility] [place] [address] Emeli Toledo RN [address] [facility] [address] 06/28/2023 1:00 PM EST Office Visit Palliative Medicine [facility] 200 [facility] [place] [address] Valeria Nath MD [address] [place] [address] [place] [address] 07/06/2023 12:40 PM EST Office Visit Podiatry [facility] 132 [facility] [place] [address] Felicita Copeland DPM 132 [facility] [place] [address] 07/27/2023 12:40 PM EST Office Visit Gastroenterology, [facility] Liz [address] [phone] Trina Plaza DO [address] [facility] [place] [address] 08/03/2023 1:30 PM EST Office Visit Urology Ute BenitezAprilHarvey 27 [facility] [place] [address] [place] [address] Ryan Cunningham MD 27 [facility] 270 APRILLEMONTV[place] [address] 09/11/2023 2:00 PM EDT Appointment Radiology, [address] [place] [phone] 09/11/2023 2:30 PM EDT PulmDiagnostic Pulmonary Function Lab [facility] [address] [place] [address] [place], [address] [place] [address] 09/11/2023 3:00 PM EDT Office Visit Pulmonary Medicine [place] Harvey [address] [place] [phone] Saul Moscoso MD [address] [facility] [place] [address] 10/25/2023 2:40 PM EDT Office Visit Family Practice [facility] 200 [facility] [place] [address] Mirza Mcgee III, MD 200 [facility] [place] [address] 05/02/2024 1:00 PM EST Office Visit Sleep Disorders, [address] [place] [address] Alesha John MD [address] [place] [address] [phone] Health Maintenance Due Date Last Done Comments [...] Screening 02/03/2024 02/02/2023 CKD PHOS USE SMARTSET 44593 06/12/202405/26, 06/11/2023, 06/10/2023, Additional history exists CKD HGB USE SMARTSET 61999 06/13/202406/13, 06/13/2023, 06/12/2023, Additional history exists O2 ASSESSMENT COMPLETED IN PAST YEAR FOR COPD 06/15/2024 06/15/2023 Pneumococcal Vaccine: 65+ Years Completed 09/22/2015, 08/21/2001 VITAMIN D LEVEL ONCE IN A LIFETIME-USE SMARTSET# 57054 Completed 10/26/2022, 10/11/2021, 01/01/2019, Additional history exists Influenza Vaccine (FLU shot) Completed , 03/31/2022, 03/23/2021, Additional history exists GARDASIL-HPV IMMUNIZATION SERIES Aged Out No longer eligible based on patient's age to complete this topic MENINGOCOCCAL (MENACTRA/MENVEO) Aged Out No longer eligible based on patient's age to complete this topic documented as of this encounter Medical Devices Implanted Type Area Director Auto Device Identifier Shelf Expiration Date Model / Serial / Lot Femur Nexgn E Right - [id number] Implanted:Qty: 1 on 05/12/2008 at OR [facility] [place] Right: Knee [employer] 02/24/2018 [id number] -[id number] / / [id number] Femur Nexgn E Left - [id number] Implanted:Qty: 1 on 11/19/2008 at OR [facility] Left: Knee [employer] [id number] -[id number] / / [id number] Sut Steel 6 M654g - [id number] Implanted:Qty: 6 on 07/11/2011 at OR [facility] N/A: Chest DO NOT USE 01/09/2016 / / [id number] Akreos Ao Micro Incision Lens Mi60l Implanted:Qty: 1 on 11/07/2013 at OR [facility] Right: Eye 06/25/2016 [id number] / [id number] / [id number] documented as of this encounter Advance Directives [...] the patient have Health Care Power of Mica Sizer? No Healthcare Agents on File Name Relationship Healthcare Agent Relationship Communication Soledad Peters Spouse Health Care Agen t (per Health Care Power of Mica Sizer document) [email or web address] Huma Hernández Adult Child First Alternate Health Care Agent (per Health Care Power of Mica Sizer document) [email or web address] Care Teams Electric Frying Pan Repairer Relationship Specialty Start Date End Date Angel uQinteros DO [address] [place] [address] PCP - General Family Medicine 06/14/23 documented as of this encounter
--- OUTSIDE RECORDS SUMMARY | 2023-07-04 20:38 | External Medical Summary ---
Author Name Unknown Address Unknown Organization K1F:LAB[facility]ATORY [facility] - [address] [place] [address] Laboratory Report Ordering Provider Test Date Status IVETTVIRGINIASHANNAN 06/10/2023 22:56:00 Final Observation Date Value Abnormality Reference (Units ) Status Magnesium 06/10/2023 22:56:00 2.1 1.5-2.6 (m g/dL) Final Performing Location [facility]ATORY [facility] - [address] [place] [address]
--- OUTSIDE RECORDS SUMMARY | 2023-07-04 20:38 | External Medical Summary ---
Author Name Unknown Address Unknown Organization K1F:[facility] - [address] [place] [address] Laboratory Report Ordering Provider Test Date Status SALVADOR ROOT 06/12/2023 06:10:00 Final Observation Date Value Abnormality Reference (Units ) Status BUN 06/12/2023 06:10:00 10 6-20 (mg/dL) Final Creatinine 06/12/2023 06:10:00 0.8 0.6-1.2 (mg/dL) Final Glomerular filtration rate/1.73 sq M.predicted [Volume Rate/Area] in Serum, Plasma or Blood by Creatinine-based formula (CKD-EPI) 06/12/2023 06:10:00 85 >=60 (mL/min) Final eGFR is calculated based on the CKD-EPI 2020 equation SODIUM 06/12/2023 06:10:00 141 135-146 (m mol/L) Final Potassium 06/12/2023 06:10:00 3.4 Below low normal 3.5 -5.1 (mmol/L) Final Cl 06/12/2023 06:10:00 103 98-107 (mm ol/L) Final CO2 06/12/2023 06:10:00 29 22-32 (mmo l/L) Final Anion gap 06/12/2023 06:10:00 9 7-15 (mmol /L) Final Glucose 06/12/2023 06:10:00 101 70-120 (mg /dL) Final Calcium 06/12/2023 06:10:00 8.2 Below low normal 8.4 -10.2 (mg/dL) Final Performing Location [facility] - [address] [place] [address]
--- OUTSIDE RECORDS SUMMARY | 2023-07-04 20:38 | External Medical Summary ---
Author Name Unknown Address Unknown Organization K1F:[facility]ORY [facility] - [address] [place] [address] Laboratory Report Ordering Provider Test Date Status RAMONITA FARR 06/11/2023 05:07:00 Final Observation Date Value Abnormality Reference (Units ) Status BUN 06/11/2023 05:07:00 10 6-20 (mg/dL) Final Creatinine 06/11/2023 05:07:00 0.8 0.6-1.2 (mg/dL) Final Glomerular filtration rate/1.73 sq M.predicted [Volume Rate/Area] in Serum, Plasma or Blood by Creatinine-based formula (CKD-EPI) 06/11/2023 05:07:00 87 >=60 (mL/min) Final eGFR is calculated based on the CKD-EPI 2020 equation SODIUM 06/11/2023 05:07:00 141 135-146 (m mol/L) Final Potassium 06/11/2023 05:07:00 3.3 Below low normal 3.5 -5.1 (mmol/L) Final Cl 06/11/2023 05:07:00 103 98-107 (mm ol/L) Final CO2 06/11/2023 05:07:00 28 22-32 (mmo l/L) Final Anion gap 06/11/2023 05:07:00 10 7-15 (mmol /L) Final Glucose 06/11/2023 05:07:00 92 70-120 (mg /dL) Final Calcium 06/11/2023 05:07:00 7.8 Below low normal 8.4 -10.2 (mg/dL) Final Performing Location [facility] - [address] [place] [address]
--- OUTSIDE RECORDS SUMMARY | 2023-07-04 20:38 | External Medical Summary ---
Author Name Unknown Address Unknown Organization K01:LABORATORY [facility] - [address] [place] [address] Laboratory Report Ordering Provider Test Date Status RAMONITA FARR 06/10/2023 16:58:24 Final Observation Date Value Abnormality Reference (Units ) Status Bacteria identified in Specimen by Culture 06/10/2023 16:58:24 [id number]^ENTEROC OCCUS SPECIES Abnormal Final >100,000 colonies/mL Enteroc occus species Performing Location LABORATORY [facility] - [address] [place] [address] Ordering Provider Test Date Status RAMONITA FARR 06/10/2023 16:58:24 Final Observation Date Value Abnormality Reference (Units ) Status Ampicillin 06/10/2023 16:58:24 <=2 Susceptible Final Nitrofurantoin susceptibility 06/10/2023 16:58:24 <=16 Susceptible Final Tetracyclinesusceptibility 06/10/2023 16:58:24 >=16 Resistant Final Vancomycinsusceptibility 06/10/2023 16:58:24 <=0.5 Susceptible Final Test: Culture, Urine, Quanti tative
Specimen Source: Urine, Clean Catch
Specimen Type: Urine
Specimen Date: 06/10/2023 4:58 PM
Result Date: 06/13/2023 10:02 AM
Result Status: Final result
Abnormal: Yes
Resulting Lab: LABORATORY [facility]
[address]
[place] [address]

CULTURE

>100,000 colonies/mL Enterococcus species (Abnormal)

SUSCEPTIBILITY

Enterococcus
species
METHOD MICROBROTH
DILUTIONS

AMPICILLIN <=2 Susceptible
NITROFURANTOIN <=16 Susceptible
TETRACYCLINE >=16 Resistant
VANCOMYCIN <=0.5 Susceptible

null Performing Location LABORATORY [facility] - [address] [facility] [address]
--- OUTSIDE RECORDS SUMMARY | 2023-07-04 20:38 | External Medical Summary ---
Author Name Unknown Address Unknown Organization K1F:LABORATORY [facility] - [address] [place] [address] Laboratory Report Ordering Provider Test Date Status RAMONITA FARR 06/11/2023 05:07:00 Final Observation Date Value Abnormality Reference (Units ) Status Magnesium 06/11/2023 05:07:00 2.2 1.5-2.6 (m g/dL) Final Performing Location [facility] - [address] [place] [address]
--- OUTSIDE RECORDS SUMMARY | 2023-07-04 20:38 | External Medical Summary ---
Author Name Unknown Address Unknown Organization K1F:LABORATORY [facility] - [address] [place] [address] Laboratory Report Ordering Provider Test Date Status JEAN-PAUL HINOJOSA 06/13/2023 05:31:00 Final Observation Date Value Abnormality Reference (Units ) Status WBC, Total 06/13/2023 05:31:00 7.89 4.00-10.80 (K/uL) Final RBC 06/13/2023 05:31:00 4.37 4.50-5.25 (M/uL) Final Hemoglobin 06/13/2023 05:31:00 13.7 Below low normal 14.0-16.8 (g/dL) Final HCT 06/13/2023 05:31:00 40.0 40.0-48.4 (%) Final MCV 06/13/2023 05:31:00 91.5 82.0-99.5 (fL) Final MCH 06/13/2023 05:31:00 31.4 27.0-34.0 (pg) Final MCHC 06/13/2023 05:31:00 34.3 32.0-36.0 (g/dL) Final RDW 06/13/2023 05:31:00 13.4 11.5-15.5 (%) Final Platelets 06/13/2023 05:31:00 150 140-400 (K/uL) Final MPV 06/13/2023 05:31:00 11.8 6.6-11.1 (fL) Final Nucleated erythrocytes/100 leukocytes [Ratio] in Blood by Automated count 06/13/2023 05:31:00 0 <=0 (/100 WBCs) Final Performing Location LABORATORY [facility] - [address] [place] [address]
--- OUTSIDE RECORDS SUMMARY | 2023-07-04 20:38 | External Medical Summary ---
Author Name Unknown Address Unknown Organization K1F:LABORATORY [facility] - [address] [place] [address] Laboratory Report Ordering Provider Test Date Status SALVADOR ROOT 06/12/2023 06:10:00 Final Observation Date Value Abnormality Reference (Units ) Status WBC, Total 06/12/2023 06:10:00 7.06 4.00-10.80 (K/uL) Final RBC 06/12/2023 06:10:00 4.46 4.50-5.25 (M/uL) Final Hemoglobin 06/12/2023 06:10:00 13.2 Below low normal 14.0-16.8 (g/dL) Final HCT 06/12/2023 06:10:00 40.7 40.0-48.4 (%) Final MCV 06/12/2023 06:10:00 91.3 82.0-99.5 (fL) Final MCH 06/12/2023 06:10:00 29.6 27.0-34.0 (pg) Final MCHC 06/12/2023 06:10:00 32.4 32.0-36.0 (g/dL) Final RDW 06/12/2023 06:10:00 13.6 11.5-15.5 (%) Final Platelets 06/12/2023 06:10:00 141 140-400 (K/uL) Final MPV 06/12/2023 06:10:00 11.4 6.6-11.1 (fL) Final Nucleated erythrocytes/100 leukocytes [Ratio] in Blood by Automated count 06/12/2023 06:10:00 0 <=0 (/100 WBCs) Final Performing Location LABORATORY [facility] - [address] [place] [address]
--- OUTSIDE RECORDS SUMMARY | 2023-07-04 20:38 | External Medical Summary | Summary of Care ---
Author Name Unknown Organization [facility] Address [address] [place] [address] Phone [phone] Care Team Providers Care Quality Control Analyst Name Role Phone Everardo SHAFER MD, Mirza Zeng Primary Care Provider [phone] Reason for Visit * Reason Onset Date Comments [facility]: Maintenance 06/13/2023 Encounter Details Date Type Department Care Team (Late st Contact Info) Description 06/13/2023 Telephone [facility], [facility] [address] [place] [id number] [facility], Nurse [facility] [address] [place] [id number] [facility]: Maintenance Allergies Active Allergy Reactions Criticality Noted Date Comments Amoxicillin Rash 09/27/2005 At time of knee replacement Oxycodone Other (Please comment) 10/11/2012 Severe mental change Oxycodone-Acetaminophe n Other (Please comment) 03/15/2010 Severe mental change documented as of this encounter (statuses as of 06/13/2023) Medications Medication Sig Dispensed Refills Start Date End Date Status PRESERVISION AREDS 2 PO CAPS one by mouth twice a day 0 Active DIURETIC TITRATION PLAN If no improvement on day 3, contact heart failure managing provider or [facility] insurance case manager 1 Each 0 9 Active aspirin enteric coated 81 MG TBECIndications:H TN, goal below 140/90 Take one pill daily [...] by mouth daily. 0 Active oxygen IN GASIndications:Ch ronic respiratory failure with hypoxia (HCC),PHT (pulmonary hypertension) (HCC) 1.5 lpm bled into CPAP and with activity/exertio n 1 Each 1 Active Potassium Chloride ER 10 MEQ Oral Tablet Extended Release Take 3 Tablets by mouth in the morning. 0 Active Spironolactone 25 MG Oral Tablet (Aldactone)Indica tions:HTN, goal below 140/90,Chronic diastolic heart failure (HCC) Take 1/2 tablet daily 45 Tablet 3 3 Active Prolia 60 MG/ML Subcutaneous Solution Prefilled Syringe (Denosumab) INJECT 60 MG (1 SYRINGE) UNDER THE SKIN EVERY 6 MONTHS 1 mL 1 3 10/07/19 24 Active Benzonatate 100 MG Oral CapsuleIndication s:Bronchitis, complicated,Viral URI with cough Take 1-2 capsules three times daily as needed for cough. Do not cut, crush, or chew. 40 Capsule 1 3 Active Albuterol Sulfate HFA 108 (90 Base) MCG/ACT Inhalation Aerosol SolutionIndicatio ns:Acute bronchitis, antibiotics not indicated Inhale 2 Puffs by mouth every 4 hours as needed for Wheezing. 18 g 3 3 Active Fluticasone Furoate-Vilantero l 100-25 MCG/ACT Inhalation Aerosol Powder Breath Activated (BREO ellipta)Indicatio ns:Restrictive lung disease INHALE ONE PUFF BY MOUTH [...] 24 Active Finasteride 5 MG Oral Tablet (Proscar)Indicati ons:BPH with obstruction/lower urinary tract symptoms TAKE ONE TABLET BY MOUTH EVERY MORNING 90 Tablet 3 3 08/12/19 24 Active Atenolol 50 MG Oral Tablet (Tenormin)Indicat ions:HTN, goal below 140/90,PVC (premature ventricular contraction) TAKE ONE TABLET BY MOUTH EVERY MORNING AND TAKE ONE-HALF TABLET IN THE EVENING 135 Tablet 3 3 02/08/20 24 Active Diclofenac Sodium 1 % External Gel (Voltaren) APPLY 4 GRAMS TOPICALLY TO UPPER/LOWER BACK TWO TIMES A DAY NEEDED FOR PAIN 800 g 0 3 Active Ipratropium-Albut silvina 0.5-2.5 (3) MG/3ML Inhalation Solution (Duoneb)Indicatio ns:Wheezing,Bronc hitis, complicated INHALE 1 VIAL (3ml) IN NEBULIZER 4 TIMES A DAY. 1080 mL 1 3 Active Omeprazole 20 MG Oral Capsule Delayed Release (PriLOSEC) TAKE ONE CAPSULE BY MOUTH TWICE A DAY 180 Capsule 3 3 04/03/20 24 Active Fluticasone Propionate 50 MCG/ACT Nasal Suspension (Flonase) ADMINISTER TWO SPRAYS IN EACH NOSTRIL EVERY MORNING 48 g 2 3 04/14/20 24 Active amLODIPine Besylate 5 MG Oral Tablet (Norvasc)Indicati ons:HTN, goal below 140/90 TAKE ONE TABLET BY MOUTH EVERY DAY 100 Tablet 1 3 04/23/20 24 Active Furosemide 20 MG Oral Tablet (Lasix)Indication s:HTN, goal below 140/90,Chronic diastolic heart failure (HCC) TAKE ONE TABLET BY MOUTH EVERY MORNING. MAY TAKE ONE ADDITIONAL TABLET NEEDED FOR FLUID RETENTION, WEIGHT GAIN 100 Tablet 3 3 04/24/20 24 Active busPIRone HCl 5 MG Oral Tablet (Buspar) Take 1 Tablet by mouth in the morning and 1 Tablet before bedtime. 60 Tablet 6 10/30/202 3 Active predniSONE 5 MG Oral Tablet [...] Active traMADol HCl 50 MG Oral Tablet (Ultram)Indicatio ns:Prostate cancer metastatic to bone (HCC) Take 1 Tablet by mouth every 6 hours as needed for Pain, Severe. Take 1 tablet every 6 hours around the clock to control pain. 60 Tablet 0 3 Active Baclofen 5 MG Oral Tablet (Lioresal)Indicat ions:Metastases to the liver (HCC) Take 1 Tablet by mouth in the morning and 1 Tablet in the evening. 60 Tablet 3 3 Active Metoclopramide HCl 5 MG Oral Tablet (Reglan)Indicatio ns:Metastases to the liver (HCC) Take 1 or 2 tablets 3 times a day before meals to control nausea. 90 Tablet 3 3 Active Acetaminophen 325 MG Oral Tablet (Tylenol) Take 3 Tablets by mouth in the morning and 3 Tablets at noon and 3 Tablets before bedtime. Do all this for 10 days. 90 Tablet 0 3 06/13/20 23 Discontinued documented as of this encounter (statuses as of 06/13/2023) Active Problems Problem Noted Date Diagnosed Date Hypophosphatemia 06/10/2023 UTI (urinary tract infection) 06/10/2023 Intractable nausea and vomiting 05/21/2023 Uncontrolled pain 05/21/2023 Degenerative lumbar spinal stenosis 05/21/2023 DNR (do not resuscitate) 05/21/2023 Constipation 05/21/2023 [place] (hard of hearing) 05/21/2023 Poor vision 05/21/2023 [...] as of this encounter (statuses as of 06/13/2023) Resolved Problems Problem Noted Date Diagnosed Date [...] lower extremities 11/24/2008 09/22/2015 Overview: seen at [facility] Anemia 05/13/2008 03/21/2017 Osteoarthritis of [...] as of this encounter (statuses as of 06/13/2023) Immunizations Name Administration Dates Next Due COVID-19 mRNA, LNP-s, No Pre serve, 2-Dose Series (Smore) 08/30/2020,08/02/2020 Pneumococcal Conjugate Vacc, 13 Valent (Prevnar) [...] encounter Miscellaneous Notes * Telephone Encounter - Anyi Thacker LPN - 06/13/2023 11:47 AM EST TT from Katelynn Goetz pt needs to rescheduled missed [facility] visit with Nadine Moreno Scheduled pt for New HOMERO 06/14 10:00 am Jus [place] and 06/23 9:00 am Nadine Moreno Call to pt at home and cell number No answer at either number. Left detailed VM on both with appointment information Requested a call back to [facility] to confirm appointments documented in this encounter Plan of Treatment Upcoming Encounters Date Type Department Care Team (Late st Contact Info) Description 06/14/2023 10:00 AM EST [facility] Visit [facility] [place], [facility] [address] [facility] [place] [address] Emeli Toledo RN [address] [place] [address] 06/15/2023 9:00 AM EST Hospital Encounter OR GL, Operating Room, [facility] - 4th Floor [address] [place] [address] [facility], In And Out Surgery [address] [place] [address] 06/15/2023 9:00 AM EST Appointment Radiology, [facility] [address] [place] [address] 06/15/2023 9:00 AM EST - 06/15/2023 10:00 AM EST Surgery OR [facility], Operating Room, [facility] - 4th Floor [address] [place] [address] [facility], In And Out Surgery [address] [place] [address] PRE / POST CARE 06/20/2023 11:00 AM EST Office Visit Family Practice [facility] [address] [place] [address] Mirza Mcgee III, MD [address] [facility] [address] 06/23/2023 9:00 AM EST [facility] Visit [facility] [address] [facility] [place] [address] Amador Moreno PA-C [address] [place] [address] 06/28/2023 1:00 PM EST Office Visit Palliative Medicine [facility] [address] [place] [address] Valeria Nath MD [address] [place] [address] 07/06/2023 12:40 PM EST Office Visit Podiatry [facility] [address] [place] [address] Felicita Copeland DPM [address] [place] [address] 07/27/2023 12:40 PM EST Office Visit Gastroenterology, [facility] [address] [facility] [phone] Trina Plaza DO [address] [place] [address] 08/03/2023 1:30 PM EST Office Visit Urology [facility] [place] [address] [facility] [place] [address] [place] [address] Ryan Cunningham MD 27 [facility] [place] [address] [place] [address] 09/11/2023 2:00 PM EDT Appointment Radiology, [facility] [address] [facility] [place] [phone] 09/11/2023 2:30 PM EDT [facility] [place] [address] [place] [address] [place], [facility] [address] [place] [address] 09/11/2023 3:00 PM EDT Office Visit Pulmonary Medicine [facility] [place] [address] [place] [phone] Saul Moscoso MD [address] [place] [address] 10/25/2023 2:40 PM EDT Office Visit [facility] [place] 200 [facility] [place], [place] [address] Mirza Mcgee III, MD 200 [facility] [place], [place] [address] 05/02/2024 1:00 PM EST Office Visit Sleep Disorders, [facility] [address] [place] [address] Alesha John MD [address] [place] [address] Scheduled Procedures Name Priority Associated Diagnoses [...] Screening 02/03/2024 02/02/2023 CKD PHOS USE SMARTSET 53045 06/12/202405/26, 06/11/2023, 06/10/2023, Additional history exists O2 ASSESSMENT COMPLETED IN PAST YEAR FOR COPD 06/12/2024 06/13/2023 CKD HGB USE SMARTSET 88888 06/13/202406/13, 06/13/2023, 06/12/2023, Additional history exists Pneumococcal Vaccine: 65+ Years Completed 09/22/2015, 08/21/2001 VITAMIN D LEVEL ONCE IN A LIFETIME-USE SMARTSET# 53867 Completed 10/26/2022, 10/11/2021, 01/01/2019, Additional history exists Influenza Vaccine (FLU shot) Completed , 03/31/2022, 03/23/2021, Additional history exists GARDASIL-HPV IMMUNIZATION SERIES Aged Out No longer eligible based on patient's age to complete this topic MENINGOCOCCAL (MENACTRA/MENVEO) Aged Out No longer eligible based on patient's age to complete this topic documented as of this encounter Medical Devices Implanted Type Area Machine Wiper Device Identifier Shelf Expiration Date Model / Serial / Lot Femur Nexgn E Right - [id number] Implanted:Qty: 1 on 05/12/2008 at OR [facility] Right: Knee [employer] 02/24/2018 [id number] / / [id number] Femur Nexgn E Left - [id number] Implanted:Qty: 1 on 11/19/2008 at OR [facility] Left: Knee [employer] [id number] / / [id number] Sut Steel 6 M654g - [id number] Implanted:Qty: 6 on 07/11/2011 at OR [facility] N/A: Chest DO NOT USE 01/09/2016 / / [id number] [employer] Micro Incision Lens [id number] Implanted:Qty: 1 on 11/07/2013 at OR [facility] Right: Eye 06/25/2016 [id number] / [id number] / [id number] documented as of this encounter Advance Directives Latest Code Status on File Code Status Date Activated Date Inactivated Comments No Code 06/10/2023 4:43 PM This orde r reflects the patients [...] the patient have Health Care Power of Store Person? No Healthcare Agents on File Name Relationship Healthcare Agent Relationship Communication Soledad Peters Spouse Health Care Agen t (per Health Care Power of Store Person document) [email or web address] Huma Hernández Adult Child First Alternate Health Care Agent (per Health Care Power of Store Person document) [email or web address] Care Teams Quality Control Analyst Relationship Specialty Start Date End Date Mirza Mcgee III, MD [address] [place] [address] PCP - General Family Medicine 08/11/18 documented as of this encounter
--- OUTSIDE RECORDS SUMMARY | 2023-07-04 20:38 | External Medical Summary | Summary of Care ---
Author Name Unknown Organization [facility] Address [address] [place] [address] Phone [phone] Care Team Providers Care Ict Customer Support Officer Name Role Phone Everardo SHAFER MD, Mirza Zeng Primary Care Provider [phone] Reason for Visit * Reason Onset Date Comments [facility]: Maintenance 06/12/2023 Encounter Details Date Type Department Care Team (Late st Contact Info) Description 06/12/2023 Telephone [facility], [facility] [place] [address] [facility] [place] [address] [facility], Nurse [facility] [address] [facility] [place] [address] [facility]: Maintenance Allergies Active Allergy Reactions Criticality Noted Date Comments Amoxicillin Rash 09/27/2005 At time of knee replacement Oxycodone Other (Please comment) 10/11/2012 Severe mental change Oxycodone-Acetaminophe n Other (Please comment) 03/15/2010 Severe mental change documented as of this encounter (statuses as of 06/12/2023) Medications Medication Sig Dispensed Refills Start Date End Date Status PRESERVISION AREDS 2 PO CAPS one by mouth twice a day 0 Suspended DIURETIC TITRATION PLAN If no improvement on day 3, contact heart failure managing provider or [facility] disease case manager rn 1 Each 0 01/30/2019 Suspended Additional Information aspirin enteric coated 81 MG TBECIndications:HT N, goal below 140/90 Take one pill daily 100 Tab 3 11/22/2019 Suspended Additional Information Patient taking differently:, Take one pill daily,Indications: blood pressure, Reported on 05/02/2022 zinc gluconate 50 MG Tablet Take 1 Tablet by mouth in the morning. 0 Suspended Magnesium 250 MG Tablet Take 1 Tablet by mouth in the morning. 0 Suspended Calcium 200 MG Tablet Take 200 mg by mouth daily. 0 Suspended oxygen IN GASIndications:Chr onic respiratory failure with hypoxia (HCC),PHT (pulmonary hypertension) (HCC) 1.5 lpm bled into CPAP and with activity/exertio n 1 Each 03/31/2021 Suspended Additional Information Potassium Chloride ER 10 MEQ Oral Tablet Extended Release Take 3 Tablets by mouth in the morning. 0 Suspended Spironolactone 25 MG Oral Tablet (Aldactone)Indicat ions:HTN, goal below 140/90,Chronic diastolic heart failure (HCC) Take 1/2 tablet daily 45 Tablet 3 09/30/2022 Suspended Additional Information Prolia 60 MG/ML Subcutaneous Solution Prefilled Syringe (Denosumab) INJECT 60 MG (1 SYRINGE) UNDER THE SKIN EVERY 6 MONTHS 1 mL 1 10/07/2022 4 Suspended Additional Information Benzonatate 100 MG Oral CapsuleIndications :Bronchitis, complicated,Viral [...] EVERY DAY 180 Each 3 11/01/2022 4 Suspended Additional Information Gabapentin 400 MG Oral Capsule (Neurontin) TAKE ONE CAPSULE BY MOUTH FOUR TIMES A DAY 400 Capsule 3 10/13/2022 4 Suspended Additional Information Benazepril HCl 40 MG Oral Tablet TAKE ONE TABLET BY MOUTH EVERY DAY 90 Tablet 3 09/04/2022 4 Suspended Additional Information Atorvastatin Calcium 20 MG Oral Tablet (Lipitor) TAKE ONE TABLET BY MOUTH EVERY DAY 90 Tablet 3 08/22/2022 4 Suspended Additional Information Doxazosin Mesylate 8 MG Oral Tablet TAKE ONE TABLET BY MOUTH AT BEDTIME 90 Tablet 3 08/01/2022 4 Suspended Additional Information Finasteride 5 MG Oral Tablet (Proscar)Indicatio ns:BPH with obstruction/lower urinary tract symptoms TAKE ONE TABLET BY MOUTH EVERY MORNING 90 Tablet 3 08/01/2022 4 Suspended Additional Information Atenolol 50 MG Oral Tablet (Tenormin)Indicati ons:HTN, goal below 140/90,PVC (premature ventricular contraction) TAKE ONE TABLET BY MOUTH EVERY MORNING AND TAKE ONE-HALF TABLET IN THE EVENING 135 Tablet 3 02/08/2023 4 Suspended Additional Information Diclofenac Sodium 1 % External Gel (Voltaren) APPLY 4 GRAMS TOPICALLY TO UPPER/LOWER BACK TWO TIMES A DAY NEEDED FOR PAIN 800 g 0 02/24/2023 Suspended Additional Information Ipratropium-Albute rol 0.5-2.5 (3) MG/3ML Inhalation Solution (Duoneb)Indication s:Wheezing,Bronchi tis, complicated INHALE 1 VIAL (3ml) IN NEBULIZER 4 TIMES A DAY. 1080 mL 1 03/08/2023 Suspended Additional Information Omeprazole 20 MG Oral Capsule Delayed Release (PriLOSEC) TAKE ONE CAPSULE BY MOUTH TWICE A DAY 180 Capsule 3 04/04/2023 4 Suspended Additional Information Fluticasone Propionate 50 MCG/ACT Nasal Suspension (Flonase) ADMINISTER TWO SPRAYS IN EACH NOSTRIL EVERY MORNING 48 g 2 04/15/2023 4 Suspended Additional Information amLODIPine Besylate 5 MG Oral Tablet (Norvasc)Indicatio ns:HTN, goal below 140/90 TAKE ONE TABLET BY MOUTH EVERY DAY 100 Tablet 1 04/24/2023 4 Suspended Additional Information Furosemide 20 MG Oral Tablet (Lasix)Indications :HTN, goal below 140/90,Chronic diastolic heart failure (HCC) TAKE ONE TABLET BY MOUTH EVERY MORNING. MAY TAKE ONE ADDITIONAL TABLET NEEDED FOR FLUID RETENTION, WEIGHT GAIN 100 Tablet 3 04/25/2023 4 Suspended Additional Information busPIRone HCl 5 MG Oral Tablet (Buspar) Take 1 Tablet by mouth in the morning and 1 Tablet before bedtime. 60 Tablet 6 04/24/2023 Suspended Additional Information predniSONE 5 MG Oral Tablet (Deltasone) TAKE ONE TABLET BY MOUTH DAILY 100 Tablet 0 04/26/2023 4 Suspended Additional Information CPAP 10 cm every [...] Information traMADol HCl 50 MG Oral Tablet (Ultram)Indication s:Prostate cancer metastatic to bone (HCC) Take 1 Tablet by mouth every 6 hours as needed for Pain, Severe. Take 1 tablet every 6 hours around the clock to control pain. 60 Tablet 0 06/08/2023 Suspended Additional Information Baclofen 5 MG Oral Tablet (Lioresal)Indicati ons:Metastases to the liver (HCC) Take 1 Tablet by mouth in the morning and 1 Tablet in the evening. 60 Tablet 3 06/08/2023 Suspended Additional Information Metoclopramide HCl 5 MG Oral Tablet (Reglan)Indication s:Metastases to the liver (HCC) Take 1 or 2 tablets 3 times a day before meals to control nausea. 90 Tablet 3 06/08/2023 Suspended Additional Information documented as of this encounter (statuses as of 06/12/2023) Active Problems Problem Noted Date Diagnosed Date Hypophosphatemia 06/10/2023 UTI (urinary tract infection) 06/10/2023 Intractable nausea and vomiting 05/21/2023 Uncontrolled pain 05/21/2023 Degenerative lumbar spinal stenosis 05/21/2023 DNR (do not resuscitate) 05/21/2023 Constipation 05/21/2023 [place] (hard of hearing) 05/21/2023 Poor vision 05/21/2023 [...] 10/18/2012 [facility] current use of systemic steroids 10/18 History [...] as of this encounter (statuses as of 06/12/2023) Resolved Problems Problem Noted Date Diagnosed Date [...] lower extremities 11/24/2008 09/22/2015 Overview: seen at [facility] ER Anemia 05/13/2008 03/21/2017 Osteoarthritis of [...] as of this encounter (statuses as of 06/12/2023) Immunizations Name Administration Dates Next Due COVID-19 mRNA, LNP-s, No Pre serve, 2-Dose Series (FreedomPay) 08/30/2020,08/02/2020 Pneumococcal Conjugate Vacc, 13 Valent (Prevnar) [...] encounter Miscellaneous Notes * Telephone Encounter - Rae Monge RN - 06/12/2023 8:13 AM EST [facility] [place] [facility] [employer] Notification Date: 06/12/2023 Time: 8:13 AM [facility] Subprogram: No data was found [facility] Episode Start Date: No linked episodes [facility] Enrollment Status: Not Yet Enrolled Action Taken on [employer] Alert and Outcome of ED Visit: Review ONLY: Admitted to Inpatient Rae Monge RN documented in this encounter Plan of Treatment Upcoming Encounters Date Type Department Care Team (Late st Contact Info) Description 06/15/2023 9:00 AM EST Hospital Encounter OR [facility], Operating Room, [facility] - 4th Floor [address] [place] [address] [facility], In And Out Surgery [address] [place] [address] 06/15/2023 9:00 AM EST Appointment Radiology, [facility] [address] [place] [address] 06/15/2023 9:00 AM EST - 06/15/2023 10:00 AM EST Surgery OR [facility], Operating Room, [facility] - 4th Floor [address] [place] [address] [facility], [facility] 400 [facility] [address] PRE / POST CARE 06/23/2023 12:30 PM EST Home Visit [facility] [address] [place] [address] Emeli Toledo, RN [address] [place] [address] 07/06/2023 12:40 PM EST Office Visit Podiatry [facility] [address] [place] [address] Felicita Copeland DPM [address] [place] [address] 07/27/2023 12:40 PM EST Office Visit Gastroenterology, [facility] [address] [place] [phone] Trina Plaza DO [address] [place] [address] 08/03/2023 1:30 PM EST Office Visit Urology [place] [address] [place] [place] [address] Ryan Cunningham MD [address] [place] [address] [place] [address] 09/11/2023 2:00 PM EDT Appointment Radiology, [facility] [address] [place] [phone] 09/11/2023 2:30 PM EDT PulmDiagnostic Pulmonary Function Lab Harry Rowley Lena [address] [place] [address] [place], [place] [address] [place] [address] 09/11/2023 3:00 PM EDT [facility] [address] [place] [phone] Saul Moscoso MD [address] [place] [address] 10/25/2023 2:40 PM EDT Office Visit Family Practice [facility] 200 [facility], [place] [address] Mirza Mcgee III, MD 200 [facility] [place], [place] [address] 05/02/2024 1:00 PM EST Office Visit Sleep Disorders, [facility] [address] [place] [address] Alesha John MD [address] [place] [address] Scheduled Procedures Name Priority Associated Diagnoses Date/Ti [...] history exists Reveles's Esophagus Surveilance 05/21/2022 05/21/2019, 04/25/2018 DTaP,Tdap,and Td Vaccines (2 - Td or Tdap) 10/04/2022 10/04/2012, 05/30/2003 Diabetic Eye Exam 10/11/2022 10/11/2021, , 07/14/2021, Additional history exists *BISPHONATE OR OTHER ACCEPTABLE MEDICATION NEEDED FOR OSTEOPOROSIS (REFER TO SMARTSET #1146) 06/01/2023 HbA1c 10/14/2023 04/14/2023, 08/2022, 06/10/2022, Additional history exists Albumin/Creatinine Ratio 10/27/2023 10/26/2022, 02/25 DXA Scan 11/03/2023 11/02/2021, 07/27, 04/11/2017, Additional history exists Depression Screening 02/03/2024 02/02/2023 CKD HGB USE SMARTSET 52055 06/12/202406/12, 06/11/2023, 06/10/2023, Additional history exists CKD PHOS USE SMARTSET 03155 06/12/202405/26, 06/11/2023, 06/10/2023, Additional history exists O2 ASSESSMENT COMPLETED IN PAST YEAR FOR COPD 06/12/2024 06/12/2023 Pneumococcal Vaccine: 65+ Years Completed 09/22/2015, 08/21/2001 VITAMIN D LEVEL ONCE IN A LIFETIME-USE SMARTSET# 39807 Completed 10/26/2022, 10/11/2021, 01/01/2019, Additional history exists Influenza Vaccine (FLU shot) Completed , 03/31/2022, 03/23/2021, Additional history exists GARDASIL-HPV IMMUNIZATION SERIES Aged Out No longer eligible based on patient's age to complete this topic MENINGOCOCCAL (MENACTRA/MENVEO) Aged Out No longer eligible based on patient's age to complete this topic documented as of this encounter Medical Devices Implanted Type Area Faculty Administrator Device Identifier Shelf Expiration Date Model / Serial / Lot Femur Nexgn E Right - [id number] Implanted:Qty: 1 on 05/12/2008 at OR [facility] Right: Knee [employer] 02/24/2018 [id number] / / [id number] Femur Nexgn E Left - [id number] Implanted:Qty: 1 on 11/19/2008 at OR [facility] Left: Knee [employer] [id number] / / [id number] Sut Steel 6 M654g - [id number] Implanted:Qty: 6 on 07/11/2011 at OR [facility] N/A: Chest DO NOT USE 01/09/2016 / / [id number] Akrod Ao Micro Incision Lens [id number] Implanted:Qty: 1 on 11/07/2013 at OR [facility] Right: Eye 06/25/2016 [id number] / [id number] / [id number] documented as of this encounter Advance Directives [...] the patient have Health Care Power of Promotions Associate? No Healthcare Agents on File Name Relationship Healthcare Agent Relationship Communication Soledad Peters Spouse Health Care Agen t (per Health Care Power of Promotions Associate document) [email or web address] Huma Hernández Adult Child First Alternate Health Care Agent (per Health Care Power of Promotions Associate document) Care Teams Ict Customer Support Officer Relationship Specialty Start Date End Date Mirza Mcgee III, MD 200 [facility] [place] [address] PCP - General Family Medicine 08/11/18 documented as of this encounter
--- OUTSIDE RECORDS SUMMARY | 2023-07-04 20:38 | External Medical Summary ---
Author Name Unknown Address Unknown Organization K1F:LABORATORY [facility] - [address] [place] [address] Laboratory Report Ordering Provider Test Date Status JEAN-PAUL HINOJOSA 06/13/2023 05:31:00 Final Observation Date Value Abnormality Reference (Units ) Status Magnesium 06/13/2023 05:31:00 2.2 1.5-2.6 (m g/dL) Final Performing Location [facility] - [address] [place] [address]
--- OUTSIDE RECORDS SUMMARY | 2023-07-04 20:38 | External Medical Summary | Summary of Care ---
Author Name Unknown Organization [facility] Address [address] [place] [address] Phone [phone] Care Team Providers Care Technical Expert Name Role Phone Everardo SHAFER MD, Mirza Zeng Primary Care Provider [phone] Reason for Visit * Reason Onset Date Comments [facility]: Maintenance 06/13/2023 Encounter Details Date Type Department Care Team (Late st Contact Info) Description 06/13/2023 Telephone [facility], [facility] [address] [place] [phone] [facility], Nurse [facility] [address] [place] [phone] [facility]: Maintenance Allergies Active Allergy [...] failure managing provider or [facility] protective services case worker 1 Each 0 9 Active aspirin enteric [...] DNR (do not resuscitate) 05/21/2023 Constipation 05/21/2023 [place] (hard of hearing) 05/21/2023 Poor vision 05/21/2023 [...] vein thrombosis) 09/22/2015 PMR (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) 10/18/2012 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 current use of systemic steroids 10/18 History [...] seen at [facility] ER Anemia 05/13/2008 03/21/2017 Osteoarthritis of knee [...] mRNA, LNP-s, No Pre serve, 2-Dose Series (nexTune) 08/30/2020,08/02/2020 Pneumococcal Conjugate Vacc, 13 Valent (Prevnar) [...] Miscellaneous Notes * Telephone Encounter - Anyi Thcaker LPN - 06/13/2023 3:40 PM EST Call to pt spoke with his Soledad she is aware and agreeable to [facility] visits as scheduled * Telephone Encounter - Anyi Thacker LPN - 06/13/2023 11:47 AM EST TT from Katelynn Goetz pt needs to rescheduled missed [facility] visit with Nadine Moreno Scheduled pt for New HOMERO 06/14 10:00 am Jus Toledo and 06/23 9:00 am Nadine Moreno Call to pt at home and cell number No answer at either number. Left detailed VM on both with appointment information Requested a call back to [facility] to confirm appointments documented in this encounter Plan of Treatment Upcoming Encounters Date Type Department Care Team (Late st Contact Info) Description 06/14/2023 11:00 AM EST Home Visit [facility], [facility] [address] [place] [address] Emeli Toledo, RN [address] [place] [address] 06/15/2023 9:00 AM EST Hospital Encounter OR [facility], Operating Room, [facility] - 4th Floor [address] [address] [place] [address] [facility], In And Out Surgery [address] [place] [address] 06/15/2023 9:00 AM EST Appointment Radiology, [facility] 400 [facility] [address] 06/15/2023 9:00 AM EST - 06/15/2023 10:00 AM EST Surgery OR [facility], Operating Room, [facility] - 4th Floor [address] [address] [facility], In And Out Surgery 400 [facility] [address] PRE / POST CARE 06/20/2023 11:00 AM EST Office Visit Family Practice [facility] 200 [facility] [address] Mirza Mcgee III, MD 200 [facility], [place] [address] 06/23/2023 9:00 AM EST Home Visit [facility], [facility] [address] [place] [address] Amador Moreno PA-C [address] [place] [address] 06/28/2023 1:00 PM EST Office Visit Palliative Medicine [facility] 200 [facility], [place] [address] Valeria Nath MD [address] [facility] [place] [address] 07/06/2023 12:40 PM EST Office Visit Podiatry [facility] [address] [facility] [place] [address] Felicita Copeland, JOSÉ MANUELM [address] [facility] [place] [address] 07/27/2023 12:40 PM EST Office Visit Gastroenterology, [facility] [address] [facility] [place] [phone] Trina Plaza DO [address] [place] [address] 08/03/2023 1:30 PM EST Office Visit Urology [place] 27 [facility] [place] [address] [place] [address] Ryan Cunningham MD 27 [facility] [place] [address] [place] [address] 09/11/2023 2:00 PM EDT Appointment Radiology, [facility] 400 [facility] [place]AV[place]ES[place] [phone] 09/11/2023 2:30 PM EDT PulmDiagnostic Pulmonary Function Lab [facility] [place] [address] [place] [address] [place], [place] [address] [place] [address] 09/11/2023 3:00 PM EDT Office Visit Pulmonary Medicine [place] [address] [place] [phone] Saul Moscoso MD [address] [place] [address] 10/25/2023 2:40 PM EDT Office Visit Family Practice [facility] [place] 200 [facility] [place], [place] [address] Mirza Mcgee III, MD 200 [facility] [place], [place] [address] 05/02/2024 1:00 PM EST Office Visit Sleep Disorders, [facility] 400 [place] [address] Alesha John MD 400 [place] [address] Scheduled Procedures Name Priority Associated Diagnoses [...] Screening 02/03/2024 02/02/2023 CKD PHOS USE SMARTSET 24455 06/12/202405/26, 06/11/2023, 06/10/2023, Additional history exists O2 ASSESSMENT COMPLETED IN PAST YEAR FOR COPD 06/12/2024 06/13/2023 CKD HGB USE SMARTSET 73740 06/13/202406/13, 06/13/2023, 06/12/2023, Additional history exists Pneumococcal Vaccine: 65+ Years Completed 09/22/2015, 08/21/2001 VITAMIN D LEVEL ONCE IN A LIFETIME-USE SMARTSET# 82509 Completed 10/26/2022, 10/11/2021, 01/01/2019, Additional history exists Influenza Vaccine (FLU shot) Completed , 03/31/2022, 03/23/2021, Additional history exists GARDASIL-HPV IMMUNIZATION SERIES Aged Out No longer eligible based on patient's age to complete this topic MENINGOCOCCAL (MENACTRA/MENVEO) Aged Out No longer eligible based on patient's age to complete this topic documented as of this encounter Medical Devices Implanted Type Area Shop Tech Device Identifier Shelf Expiration Date Model / Serial / Lot Femur Nexgn E Right - [id number] Implanted:Q[place]: 1 [place]12/2008 [place] [facility] [place]: Knee [employer] 02/24/2018 [id number] -[id number] / / [id number] Femur Nexgn E Left - [id number] Implanted:Qty: 1 on 11/19/2008 [place] [facility] [place]: Knee [employer] [id number] -[id number] / / [id number] Sut Steel 6 M654g - [id number] Implanted:Qty: 6 on 07/11/2011 [place] [facility] [place] N/A: Chest DO NOT USE 01/09/2016 / / [id number] Akreos Ao Micro Incision Lens Mi60l Implanted:Qty: 1 on 11/07/2013 at OR [facility] Right: Eye 06/25/2016 [id number] / [id number] / [id number] documented as of this encounter Advance Directives [...] the patient have Health Care Power of Photographic Equipment Mechanic? No Healthcare Agents on File Name Relationship Healthcare Agent Relationship Communication Soledad Peters Spouse Health Care Agen t (per Health Care Power of Photographic Equipment Mechanic document) [email or web address] [email or web address] Hernández Adult Child First Alternate Health Care Agent (per Health Care Power of Photographic Equipment Mechanic document) [email or web address] Care Teams Technical Expert Relationship Specialty Start Date End Date Everardo SHAFER, Mirza Zeng MD [address] [place] [address] PCP - General Family Medicine 08/11/18 documented as of this encounter
--- OUTSIDE RECORDS SUMMARY | 2023-07-04 20:38 | External Medical Summary ---
Author Name Unknown Address Unknown Organization K1F:LABORATORY [facility] - [address] [place] [address] Laboratory Report Ordering Provider Test Date Status VIRGINIA ROOTSHANNAN 06/10/2023 22:56:00 Final Observation Date Value Abnormality Reference (Units ) Status Phosphate 06/10/2023 22:56:00 2.4 Below low normal 2.5 -4.8 (mg/dL) Final Performing Location LAB[facility] - [address] [place] [address]
--- OUTSIDE RECORDS SUMMARY | 2023-07-04 20:38 | External Medical Summary ---
Author Name Unknown Address Unknown Organization K1F:LABORATORY [facility] - [address] [place] [address] Laboratory Report Ordering Provider Test Date Status IVETTVIRGINIASHANNAN 06/12/2023 06:10:00 Final Observation Date Value Abnormality Reference (Units ) Status Magnesium 06/12/2023 06:10:00 2.2 1.5-2.6 (m g/dL) Final Performing Location [facility] - [address] [place] [address]
--- OUTSIDE RECORDS SUMMARY | 2023-07-04 20:38 | External Medical Summary ---
Author Name Unknown Address Unknown Organization K1F:LABORATORY [facility] - [address] [facility] [place] [address] Laboratory Report Ordering Provider Test Date Status JEAN-PAUL HINOJOSA 06/13/2023 05:31:00 Final Observation Date Value Abnormality Reference (Units ) Status SYNC LEUKOCYTES IN BLOOD BY AUTOMATED COUNT 06/13/2023 05:31:00 7.89 4.00-10.80 (K/uL) Final Segs 06/13/2023 05:31:00 73.9 40.0-75.0 (%) Final Lymphs % 06/13/2023 05:31:00 10.6 Below low normal 18.0-42.0 (%) Final Monos 06/13/2023 05:31:00 13.2 Above high normal 1.0-11.0 (%) Final Eosinophils 06/13/2023 05:31:00 1.5 0.0-6.0 (%) Final Basos 06/13/2023 05:31:00 0.3 0.0-2.0 (%) Final Immature Granulocyte, Percent 06/13/2023 05:31:00 0.5 0.0-2.0 (%) Final Absolute Segs 06/13/2023 05:31:00 5.83 1.80-7.70 (K/uL) Final Lymphs, absolute 06/13/2023 05:31:00 0.84 Below low normal 1.00-4.80 (K/ul) Final Monos, Abs 06/13/2023 05:31:00 1.04 0.00-1.10 (K/uL) Final Eos, Abs 06/13/2023 05:31:00 0.12 0.00-0.70 (K/uL) Final Basos, Abs 06/13/2023 05:31:00 0.02 0.00-0.20 (K/uL) Final Immature Granulocytes, Number 06/13/2023 05:31:00 0.04 0.00-0.20 (K/uL) Final Performing Location LABORATORY [facility] - [address] [place] [address]
--- OUTSIDE RECORDS SUMMARY | 2023-07-04 20:38 | External Medical Summary ---
Author Name Unknown Address Unknown Organization K1F:LABORATORY [facility] - [address] [place] [address] Laboratory Report Ordering Provider Test Date Status RAMONITA FARR 06/11/2023 05:07:00 Final Observation Date Value Abnormality Reference (Units ) Status Albumin 06/11/2023 05:07:00 3.0 Below low normal 3.8-5.0 (g/dL) Final AST (Aspartate aminotransferase) 06/11/2023 05:07:00 52 Above high normal 10-50 (U/L) Final Alk Phos 06/11/2023 05:07:00 142 Above high normal 35-130 (U/L) Final ALT (Alanine aminotransferase) 06/11/2023 05:07:00 44 10-50 (U/L) Final Bilirubin, Total 06/11/2023 05:07:00 0.9 <=1.2 (mg/dL) Final Bilirubin, Direct 06/11/2023 05:07:00 0.4 Above high normal 0.0-0.3 (mg/dL) Final Protein 06/11/2023 05:07:00 5.7 Below low normal 6.0-8.3 (g/dL) Final Performing Location LABORATORY [facility] - [address] [place] [address]
--- OUTSIDE RECORDS SUMMARY | 2023-07-04 20:38 | External Medical Summary | Summary of Care ---
Author Name Unknown Organization [facility] Address [address] [place] [address] Phone [phone] Care Team Providers Care Physician Coding Specialist Name Role Phone Everardo SHAFER MD, El Zeng Primary Care Provider [phone] Reason for Visit * Reason Comments Vomiting * Auth/Cert Specialty Diagnoses / Procedures Referred By Raul t Referred To Contact Referral ID Status Reason Start Date Expiration Date Visits Re quested Visits Authorized [id number] Encounter Details Date Type Department Care Team (Latest Contact Info) Description 06/10/2023 11:12 AM EST - 06/13/2023 1:45 PM [facility] Hospital Encounter 4B [facility] 4th Floor [address] [place], [place] [id number] Tremayne Leavitt DO [address] [place] [address] Anton Duff MD [address] [place], [place] [address] [place] [address] Margarito Biggs MD [address] [place] [id number] EKG Report Discharge Disposition: Home with Services Allergies Active Allergy Reactions Criticality Noted Date [...] failure managing provider or [facility] at home mental health case manager 1 Each 0 9 Active [...] by mouth daily. 0 Active oxygen IN GASIndications:C D Reactor Operator laura respiratory failure with hypoxia (HCC),PHT (pulmonary [...] 3 Active Baclofen 5 MG Oral Tablet (Lioresal)Indicatio ns:Metastases [...] with food. 8 Capsule 0 3 06/17/20 Active Sennosides-Docusate Sodium 8.6-50 MG Oral Tablet (Senokot-S) Take 1 Tablet by mouth daily as needed for Constipation. 30 Tablet 0 3 Active Acetaminophen 325 MG Oral Tablet (Tylenol) Take 3 Tablets by mouth in the morning and 3 Tablets at noon and 3 Tablets before bedtime. Do all this for 10 days. 90 Tablet 0 3 06/13/20 Discontinued Hospital, Clinic, or Other Facility Administered [...] DNR (do not resuscitate) 05/21/2023 Constipation 05/21/2023 TUNICA-BILOXI (hard of hearing) 05/21/2023 Poor vision 05/21/2023 [...] vein thrombosis) 09/22/2015 PMR (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) 10/18/2012 nursing home current use of systemic steroids 10/18 History [...] lower extremities 11/24/2008 09/22/2015 Overview: seen at [facility] ER Anemia 05/13/2008 03/21/2017 Osteoarthritis of [...] Sign Reading Time Taken Comments Blood Pressure 136/70 06/13/2023 7:48 AM EST Pulse 62 06/13/2023 10:39 AM EST Temperature 36.5 C (97.7 F) 06/13/2023 7:48 AM ES T Respiratory Rate 16 06/13/2023 7:48 AM EST Oxygen Saturation 96% 06/13/2023 8:09 AM EST Inhaled Oxygen Concentration - - Weight 96.8 kg (213 lb 6.4 oz) 06/12/2023 6:00 A M EST Height 172.7 cm (5' 8") 06/10/2023 5:33 PM EST Body Mass Index 32.45 06/10/2023 5:33 PM EST documented in this encounter Functional [...] Yes 06/10/2023 documented as of this encounter Discharge Summaries * Margarito Biggs MD - 06/13/2023 1:45 PM EST [facility] [id number] Admission Date: 06/10/2023 Discharge Date: 06/13/2023 RECOMMENDED TO DO FOR NEXT PROVIDER(S): Follow-up with IR for liver biopsy Follow-up with oncology Follow-up with palliative Care for pain management. REASON(S) FOR MEDICATION CHANGE(S): Macrobid course for UTI Zofran p.r.n. and Compazine p.r.n. to help with nausea and vomiting. Colace and miralax prn for constipation DISPOSITION ON DISCHARGE: Home with Services ([facility])home Active Hospital Problems Diagnosis *Principal Diagnosis - Intractable nausea and vomiting Hypophosphatemia UTI (urinary tract infection) TUNICA-BILOXI (hard of hearing) DNR (do not resuscitate) COPD, group C, by GOLD 2017 classification (HCC) 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) Chronic respiratory failure with hypoxia (HCC) SANJEEV (obstructive sleep apnea) Hypokalemia Prostate cancer metastatic to bone (HCC) 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 Reviewed previous medical records. Patient was last admitted here 05/21/2023 and 05/27/2023 for uncontrolled pain, N/V. He was having constipation at that time, which was management w/laxatives. For his back pain, he was discharged on tramadol and baclofen. Heart: regular rate & rhythm and no murmur appreciated Lungs: no respiratory distress, CTA, without wheeze, rhonchi or crackles Abdomen: + BS, soft, +mild periumbilical tenderness, nondistended, no rebound tenderness or guarding Lower Extremities: +1 pitting edema but his legs appear shriveled (family reports swelling has [place] a lot), no calf tenderness, + stasis changes noted HOSPITAL COURSE (focused): 88 y/o M patient with Hodgkin's disease (Jun 2011), Prostate cancer Stage 4 (Jun 2020 treated with depo-luporn) , GERD, Schtzki ring , Osteoporosis, PMR presented to the ER with intractable nausea, vomiting ; inability to tolerate anything PO . Labs showed hypokalemia,hypophosphotemia,mild transaminitis. UA positive for UTI. Patient was treated with IV antibiotics and electrolytes were replaced. Patient's nausea improved and was able to tolerate p.o. GI was consulted- recommended bowel regimen; anti nausea meds. Palliative care consulted for pain management. PT OT was consulted - home health PT was recommended. Patient is discharged in stable condition. Operations & Procedures: none Complications: none significant Significant Lab and Imaging Results: As mentioned above Results Pending at Discharge: Lab Results Pending at Discharge: CBC WITH WBC DIFFERENTIAL Routine BASIC METABOLIC PANEL Routine MEDICATION UPDATES AT DISCHARGE START taking these medications INSTRUCTIONS Nitrofurantoin Monohydrate Macrocrystals 100 MG Capsule Commonly known as: Macrobid Take 1 Capsule by mouth in the morning and 1 Capsule before bedtime - do all this for 4 days - takewith food. ondansetron ODT 4 MG Tbdp Commonly known as: Zofran Dissolve 1 Tablet on tongue every 8 hours as needed for Nausea. prochlorperazine 10 MG Tablet Commonly known as: Compazine Notes to patient: Nausea Take 1 Tablet by mouth every 6 hours as needed for Nausea. Senna Plus 8.6-50 MG per tablet Generic drug: senna-docusate Notes to patient: Constipation Take 1 Tablet by mouth daily as needed for Constipation. CONTINUE taking these medications INSTRUCTIONS albuterol HFA 108 (90 BASE) MCG/ACT inhaler Notes to patient: Wheezing Inhale 2 Puffs by mouth every 4 hours as needed for Wheezing. albuterol-ipratropium 2.5-0.5 MG/3ML nebulizer solution Commonly known as: Duoneb Notes to patient: Shortness of breath, wheezing INHALE 1 VIAL (3ml) IN NEBULIZER 4 TIMES A DAY. amLODIPine 5 MG Tablet Commonly known as: Norvasc Notes to patient: Blood pressure TAKE ONE TABLET BY MOUTH EVERY DAY aspirin enteric coated 81 MG Tbec Notes to patient: Stroke prevention/circulation Take one pill daily Atenolol 50 MG Tablet Commonly known as: Tenormin Notes to patient: Heart rate and blood pressure control TAKE ONE TABLET BY MOUTH EVERY MORNING AND TAKE ONE-HALF TABLET IN THE EVENING atorvaSTATin 20 MG Tablet Commonly known as: Lipitor Notes to patient: Cholesterol TAKE ONE TABLET BY MOUTH EVERY DAY Baclofen 5 MG Tabs Commonly known as: Lioresal Notes to patient: Muscle relaxer Take 1 Tablet by mouth in the morning and 1 Tablet in the evening. Benazepril HCl 40 MG Tablet Notes to patient: Blood pressure TAKE ONE TABLET BY MOUTH EVERY DAY Benzonatate 100 MG Capsule Commonly known as: Tessheryl Wilcox Notes to patient: Cough Take 1-2 capsules three times daily as needed for cough. Do not cut, crush, or chew. BREO ellipta 100-25 MCG/ACT Aepb Generic drug: fluticasone furoate-vilanterol Notes to patient: Improves breathing INHALE ONE PUFF BY MOUTH EVERY DAY busPIRone 5 MG Tablet Commonly known as: Buspar Notes to patient: Anxiety Take 1 Tablet by mouth in the morning and 1 Tablet before bedtime. Calcium 200 MG Tablet Notes to patient: Supplement Take 200 mg by mouth daily. CPAP 10 cm every night at bedtime. W/oxygen 1.5 lpm bled into cpap Diclofenac 1 % Gel Commonly known as: Voltaren Notes to patient: Pain APPLY 4 GRAMS TOPICALLY TO UPPER/LOWER BACK TWO TIMES A DAY NEEDED FOR PAIN DIURETIC TITRATION PLAN Notes to patient: Heart failure management If no improvement on day 3, contact heart failure managing provider or [facility] at home mental health case manager Docusate Sodium 100 MG Capsule Commonly known as: Colace Notes to patient: Constipation Take 1 Capsule by mouth in the morning and 1 Capsule before bedtime. Doxazosin Mesylate 8 MG Tablet TAKE ONE TABLET BY MOUTH AT BEDTIME Finasteride 5 MG Tablet Commonly known as: Proscar Notes to patient: Urine flow TAKE ONE TABLET BY MOUTH EVERY MORNING fluticasone 50 MCG/ACT nasal spray Commonly known as: Flonase Notes to patient: Nasal congestion ADMINISTER TWO SPRAYS IN EACH NOSTRIL EVERY MORNING Furosemide 20 MG Tablet Commonly known as: Lasix Notes to patient: Water pill/swelling TAKE ONE TABLET BY MOUTH EVERY MORNING. MAY TAKE ONE ADDITIONAL TABLET NEEDED FOR FLUID RETENTION, WEIGHT GAIN Gabapentin 400 MG Capsule Commonly known as: Neurontin Notes to patient: Neuropathy TAKE ONE CAPSULE BY MOUTH FOUR TIMES A DAY Magnesium 250 MG Tablet Notes to patient: Supplement Take 1 Tablet by mouth in the morning. metoclopramide 5 MG Tablet Commonly known as: Reglan Notes to patient: Nausea Take 1 or 2 tablets 3 times a day before meals to control nausea. omeprazole 20 MG Cpdr Commonly known as: PriLOSEC Notes to patient: Heartburn TAKE ONE CAPSULE BY MOUTH TWICE A DAY oxygen Gas 1.5 lpm bled into CPAP and with activity/exertion Polyethylene Glycol 3350 packet Commonly known as: Miralax Notes to patient: Constipation Take 1 Packet by mouth in the morning. potassium chloride ER 10 MEQ Tbcr Notes to patient: Supplement Take 3 Tablets by mouth in the morning. predniSONE 5 MG Tabs Commonly known as: Deltasone Notes to patient: Decrease inflammation TAKE ONE TABLET BY MOUTH DAILY PreserVision AREDS 2 Capsule Notes to patient: Supplement one by mouth twice a day Prolia 60 MG/ML injection Generic drug: Denosumab INJECT 60 MG (1 SYRINGE) UNDER THE SKIN EVERY 6 MONTHS Spironolactone 25 MG Tablet Commonly known as: Aldactone Notes to patient: Water pill Take 1/2 tablet daily traMADol 50 MG Tablet Commonly known as: Ultram Notes to patient: Pain Take 1 Tablet by mouth every 6 hours as needed for Pain, Severe. Take 1 tablet every 6 hours aroundthe clock to control pain. zinc 50 MG Tablet Notes to patient: Supplement Take 1 Tablet by mouth in the morning. STOP taking these medications Acetaminophen 325 MG Tablet Commonly known as: Tylenol SCHEDULED FOLLOW-UP: Future Appointments Appt Date/Time Provider Department 06/14/2023 11:00 AM Emeli Toledo RN [facility] 06/15/2023 9:00 AM CT1 [facility] Radiology, [facility] 06/20/2023 11:00 AM El Mcgee III, MD Family Practice [facility] 06/23/2023 9:00 AM Amador Moreno PA-C [facility] 06/28/2023 1:00 PM Valeria Nath MD Palliative Medicine [facility] 07/06/2023 12:40 PM Felicita Copeland DPM Podiatry [facility] 07/27/2023 12:40 PM Trina Plaza DO Gastroenterology, [facility] 08/03/2023 1:30 PM Ryan Cunningham MD [facility] 09/11/2023 2:00 PM XR1 [facility] Radiology, [facility] 09/11/2023 2:30 PM [place], [facility] Pulmonary Function Lab [facility] 09/11/2023 3:00 PM Saul Moscoso MD Pulmonary Medicine [facility] 10/25/2023 2:40 PM El Mcgee III, MD [facility] 05/02/2024 1:00 PM Alesha John MD Sleep Disorders, [facility] Other Information Indwelling Devices: LINES ALL Duration Peripheral Line Left;Lower;Posterior Arm 20 Gauge <1 day Vital Signs (last recorded): Most Recent Systolic BP: 136 mmHg (06/13/23 0748) Most Recent Diastolic BP: 70 mmHg (06/13/23 0748) Pulse: 62 (06/13/23 1039) Resp: 16 (06/13/23 0748) Most Recent Temperature: 36.5 C (06/13/23 0748) Weight: 96.8 kg (213 lb 6.4 oz) (06/12/23 0600) SpO2: 96 % (06/13/23 0809) O2 flow rate: 1.5 L/MIN (06/13/23 0809) Allergies: Amoxicillin, Oxycodone, and Percocet [oxycodone-acetaminophen] Activity: as tolerated Diet: age appropriate diet Code status (this admission): No Code Discussion of adv directives occurred with - adult: Patient Condition on Discharge: stable Isolation status: None Cognition: normal HOSPITAL CONSULTS ORDERED: GASTROENTEROLOGY CONSULT IP ADULT PHYSICAL THERAPY CONSULT IP ADULT OCCUPATIONAL THERAPY CONSULT IP PALLIATIVE MEDICINE CONSULT IP NUTRITION SERVICES (DIETITIAN) CONSULT IP REFERRING PHYSICIAN: Ref: [id number] NO STREET ADDRESS AVAILABLE None (office) None (fax) PRIMARY CARE PROVIDER: PCP: El Mcgee III, MD [address] [place] [address] / [place] [address] (office) [phone] (fax) Note: To contact a physician responsible for this patients hospital care, please call [facility] [phone]. I certify this patient is confined to the home and needs intermittent long term care, physical therapy and/or speech therapy, or continues to need occupational therapy. The patient is under my care and I have authorized services on this plan of care. The clinical findings of decrease in functional mobility secondary to decreased strength, decreased balance, and decreased endurance due to recent hospitalization and overall medical condition support the need for home health, and the patientdemonstrates a considerable and taxing effort when attempting to leave the home. The patient had a luff-ij-kysu encounter with an allowed provider type on 06/13/2023 and the encounter was related to the primary reason for home health care. Under situations in whichI am an acute/post acute facility physician who will not be following the patient's plan of care, Iauthorized services on this plan of care and I transfer the patient for plan of care certification to the primary care physician named below who will follow the patient and update the plan of care. Primary care physician El Mcgee III, MD I spent a total of 45 minutes coordinating, documenting, and providing care for this patient excluding time spent in the performance of separately billed services. documented in this encounter Discharge Instructions * Appointments* Akiko Valiente [facility] - 06/13/2023 8:42 AM EST Clinical Projection Camera Operator-Office will call with an appointment * Discharge Instr - AVS* Margarito Biggs MD - 06/13/2023 12:18 PM EST Discharge Date: 06/13/2023 The information below provides you with the instructions and the list of medications you need to betaking following discharge from the hospital. If you have any questions, please ask before leaving. If you have questions after leaving, you can reach us at the numbers below. YOUR HOSPITAL PROVIDERS: Discharging Provider: Margarito Biggs MD Provider Department: Hospital Medicine To reach this Provider Monday through Monday (8:00 AM to 4:30 PM) for any questions or test results: Call [phone] For after-hours concerns: Call [phone] and have your provider paged, or the provider quality liaison for the Department of Hospital Medicine paged. Please note, the discharging provider will not be able to provide you with any medications refills.Please discuss these with your primary care provider. Worsening Symptoms: If you have new symptoms, or your symptoms get worse, please contact your Discharge Provider or Primary Care Provider (PCP). If these providers are not available, you can go to your local [facility] or Urgent Care Clinic during their business hours. In an EMERGENCY situation: Call 911 or go to the nearest emergency room. A BRIEF SUMMARY OF YOUR HOSPITAL STAY: You came to the hospital with: nausea ,vomiting Your main diagnosis at discharge was: Urinary tract infection, Electrolyte abnormalities Operations & Procedures performed: none Complications: none significant Inpatient test results that are pending at discharge: none Advance Directive Documented: Advance Directive Does the Patient have an Advance Directive? No YOUR FOLLOW UP APPOINTMENTS: Primary Care Provider Information: PCP: El Mcgee III, MD [address] [place] [address] / [facility] [address] (office) [phone] (fax) An appointment was requested with your PCP (El Mcgee III, MD) within 7 days. (Please take this form to this visit with your primary care physician.) You need the following studies in the future: none INSTRUCTIONS: Diet: Heart healthy diet Activity: As tolerated Additional Instructions: - Complete the course of antibiotics as prescribed - Please followup for your liver biopsy appointment on 06/15 - Please followup with PCP, Oncology, Palliative care appointments documented in this encounter Progress Notes * Kely Burns RPh - 06/13/2023 12:22 PM EST PHARMACY DISCHARGE MEDICATION RECONCILIATION REVIEW [facility] [place] [id number] Name: Dedrick Peters Location: [facility] [id number] Date: 06/13/2023 Time: 12:22 PM This discharge medication reconciliation was reviewed by a pharmacist and no corrections or interventions were required. * Olamide Lloyd MD - 06/12/2023 12:08 PM EST Images from the original note were not included. [facility] 4B-[id number]/D HPI: 88-year-old male with PMH of NHL(11 years ago), prostate cancer with bone Mets, diastolic heart failure, diabetes, PMR on chronic steroids, chronic hypoxic respiratory failure(1.5-2 L per minute oxygen via NC at home), Reveles's esophagus with history of stricture in the past, SANJEEV on CPAP, spinal stenosis presented with intractable nausea vomiting. INTERVAL HISTORY: Denies any nausea vomiting today morning. Patient is NPO for a possible EGD today. Afebrile overnight. On 1.5 L/M oxygen which is his baseline. Objective Physical Exam Most Recent Vital Signs: BP: 166 mmHg/70 mmHg (06/12/23803) Pulse: 63 (06/12/23803) Temp: 36.5 C (06/12/23803) Resp: 20 (06/12/23803) SpO2: 95 % (06/12/23803) Physical Exam Vitals and nursing note reviewed. Constitutional: General: He is not in acute distress. Appearance: He is obese. Cardiovascular: Rate and Rhythm: Normal rate and regular rhythm. Pulmonary: Effort: Pulmonary effort is normal. No respiratory distress. Breath sounds: Normal breath sounds. No wheezing. Chest: Chest wall: Tenderness present. Abdominal: Palpations: Abdomen is soft. Tenderness: There is abdominal tenderness. Comments: Epigastric tenderness ++ Musculoskeletal: Right lower leg: Edema present. Left lower leg: Edema present. Skin: General: Skin is warm and dry. Capillary Refill: Capillary refill takes less than 2 seconds. Neurological: General: No focal deficit present. Mental Status: He is alert and oriented to person, place, and time. Psychiatric: Mood and Affect: Mood normal. Peripheral Line Lower;Right Arm 20 Gauge (Active) Number of days: 2 STUDIES: Encounter Orders Labs and other studies reviewed with pertinent findings noted below: Lab results within last 7 days (see chart for full results) Units 06/12/23 0610 06/11/23 0507 06/10/23 2256 Sodium mmol/L 141 141 138 Potassium mmol/L 3.4* 3.3* 3.6 Chloride mmol/L 103 103 101 CO2 mmol/L 29 28 27 BUN mg/dL 10 10 12 Creatinine mg/dL 0.8 0.8 0.8 Lab results within last 7 days (see chart for full results) Units 06/12/23 0610 06/11/23 0507 06/10/23 1204 HGB g/dL 13.2* 13.3* 15.3 HCT % 40.7 39.7* 46.0 WBC K/uL 7.06 9.39 9.72 PLT K/uL 141 155 172 Neutrophils % % -- -- 88.1* Monocytes % % -- -- 7.6 Eosinophils % % -- -- 0.0 Lab results within last 7 days (see chart for full results) Units 06/11/23 0507 06/10/23 1204 Protein g/dL 5.7* 6.8 Bilirubin, Total mg/dL 0.9 1.1 Alkaline Phosphatase U/L 142* 165* AST U/L 52* 63* ALT U/L 44 48 Lab results within last 7 days (see chart for full results) Units 06/10/23 1204 Lactate mmol/L 1.7 Lab results within last 7 days (see chart for full results) Units 06/10/23 1342 06/10/23 1204 Troponin T, High Sensitivity ng/L 28* 30* Latest Reference Range & Units 06/10/23 12:04 D-Dimer <0.50 ug/mL FEU 1.46 (H) Recent Cultures (2 Weeks) 06/10/2023 05/21/2023 06/10/2022 08/11/2018 02/27/2018 02/26/2018 02/26/2018 02/26/2018 4:58 PM 4:41 AM 12:04 PM 1:28 PM 11:25 AM 3:45 AM 1:41 AM 1:30 AM SPECIMEN DESCRIPTION -- -- -- CLEAN CATCH URINE SPUTUM CLEAN CATCH URINE BLOOD BLOOD CULTURE -- -- -- LESS THAN 10,000 COLONIES/ML MIXED NORMAL TRICIA -- LESS THAN 1,000 COLONIES/ML (NOGROWTH) NO GROWTH NO GROWTH BLOOD CULTURE GROWTH -- No growth -- -- -- -- -- -- No growth QUANT URINE CULTURE GROWTH >100,000 colonies/mL Enterococcus species -- 10,000 to 100,000 colonies/mL Enterococcus species -- -- -- -- -- CT ABD/PELVIS WO IV/ORAL CONTRAST Result Date: 06/10/2023 IMPRESSION: 1. No evidence of bowel obstruction. 2. New inflammatory changes surrounding the anterior portion of the distal rectum, immediately superior to the area of the prostate, etiology unknown;see discussion above. Likely acute focal colitis. 3. Evidence of liver lesions and likely bony metastasis as described above, not significantly changed. 4. Multiple other abnormalities as described above. THIS DOCUMENT HAS BEEN ELECTRONICALLY SIGNED BY TERRELL THOMPSON MD CT PULMONARY EMBOLUS W CONTRAST Result Date: 06/10/2023 IMPRESSION: 1. Limited quality exam shows no evidence of large central pulmonary embolism. 2. Scattered nonspecific pulmonary opacities consistent with areas of parenchymal scar/atelectasis and paramediastinal fibrotic changes likely related to prior radiation therapy. 8 mm pleural-based left lowerlobe pulmonary nodule, stable from prior. 3. Moderate cardiomegaly and atherosclerotic aorta. 4. Re-demonstration of multiple liver lesions consistent with metastatic disease. See report from recent CT PET exam of 06/02/2023 for further discussion. 5. Mild superior endplate compression at T11 with sclerotic changes in the vertebral body and hypermetabolism on recent CT PET consistent with metastatic disease. 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 * DIFFERENTIAL AND PLAN: 88-year-old male with PMH of NHL (11 years ago), prostate cancer with bone Mets, diastolic heart failure, diabetes, PMR on chronic steroids, chronic hypoxic respiratory failure (1.5-2 L per minute oxygen via [place] at home), Reveles's esophagus with history of stricture in the past, SANJEEV on CPAP, spinalstenosis presented with intractable nausea vomiting. Multiple liver lesions and epigastric peritoneal soft tissue mass noted on the abdominal imaging and they will be biopsied during the EGD today. D-dimer was elevated at presentation and CT PE ruled out pulmonary embolism. UA is positive for nitrite, esterase and bacteria. Urine Culture has grown Enterococcus and sensitivities awaited. Patient is at his baseline oxygen requirement. Nausea, Vomiting- cause unclear - Zofran 4 mg iv PRN - Compazine 10 mg iv PRN Urinary tract infection - Vitals Q shift/pulse oximetry/telemetry - IO charting - Continue Rocephin 1 g Q 24 H for 5 days - follow-up urine culture results-Enterococcus susceptibility - Metastatic prostate cancer, PMH of NHL - patient is NPO for EGD and EUS liver biopsy - Isolyte infusion at 50 mL/hour IV - Palliative medicine consult tomorrow for pain management Diastolic CHF /hypertension/HLD - Continue Lasix, Norvasc, Lotensin, aspirin, atenolol, Lipitor as per MAR - potassium chloride 30mEq daily, magnesium chloride 128 mg daily Diabetes mellitus - Blood sugars ACHS - Insulin as per SS Chronic hypoxic respiratory failure, SANJEEV - CPAP HS - Oxygen at 1.5- 2 L/m via NC - Maintain SpO2> 90% - Breo Ellipta 1 puff daily - Duoneb prn Polymyalgia rheumatica/chronic pain - Continue Prednisone 5 mg daily - continue gabapentin, baclofen Discharge planning - PT/ OT/ CM PHARMACOLOGIC VTE PROPHYLAXIS: Enoxaparin CODE STATUS: No Code EXPECTED DISCHARGE DATE: 06/13/2023 Patient was seen, was examined, and was discussed with Dr Kalyan MD. Associated attestation - Margarito Biggs MD - 06/12/2023 3:42 PM EST I saw and evaluated the patient today. I have reviewed the trainee note and agree. I spent a total of 55 minutes coordinating, documenting, and providing care for this patient excluding time spent in the performance of separately billed services. 88 y/o M patient with Hodgkin's disease (Jun 2011), Prostate cancer Stage 4 (Jun 2020 treated with depo-luporn) , GERD, Schtzki ring , Osteoporosis, PMR presented to the ER with intractable nausea, vomiting ; inability to tolerate anything PO . Labs showed hypokalemia,hypophosphotemia,mild transaminitis. UA positive for UTI Today, his nausea improved. Tolerating diet Plan: - GI consulted regarding n/v - no EGD planned, recommend liver biopsy on 06/15 - Advance diet to easy to chew - Resume lasix - Palliative consult for pain management - PT/OT - Anticipate discharge tomorrow * Margarito Biggs MD - 06/11/2023 1:51 PM EST PROGRESS NOTE - Hospitalist [facility] Name:Dedrick Peters SEX: male AGE: [id number] year old Date: 06/11/2023 88 y/o M patient with Hodgkin's disease (Jun 2011), Prostate cancer Stage 4 (Jun 2020 treated with depo-luporn) , GERD, Schtzki ring , Osteoporosis, PMR presented to the ER with intractable nausea, vomiting ; inability to tolerate anything PO . Patient presented to the ER 05/09 with right sided back pain. Imaging revealed epigastric mass , hepatic lesions concerning for metastatic process. Patient is scheduled for Liver biopsy on 06/14/2023with IR. Patient had an admission recently for constipation 06/20 to 05/27/2023. Labs showed hypokalemia,hypophosphotemia,mild transaminitis. UA positive for UTI CT abd/pelvis showed no evidence of bowel obstruction; inflammatory changes in rectum concerning for acute focal colitis SUBJECTIVE: Patient's nausea and vomiting improved today. He is willing to try full liquid diet. He denies any pain today at bedside - states that he has been in extreme pain ; she was unable to give him any pills due to extreme nausea. His constipation has resolved. OBJECTIVE: VITALS: BP 149/80 | Pulse 60 | Temp 36.4 C (97.5 F) (Temporal Artery) | Resp 16 | Ht 1.727 m (5' 8") | Wt 97.1 kg (214 lb 1.1 oz) | SpO2 95% | BMI 32.55 kg/m | BSA 2.16 m Intake/Output Summary (Last 24 hours) at 06/11/2023 1351 Last data filed at 06/11/2023 1300 Gross per 24 hour Intake 2722.02 ml Output -- Net 2722.02 ml PHYSICAL EXAMINATION: Constitutional: Alert, awake, no acute distress. HEENT: normocephalic, atraumatic; no masses, tenderness, or adenopathy Eyes: PERRLA, conjunctiva no pallor, sclera anicteric. Neck: supple, no mass, JVD or thyromegaly CV: normal rate and rhythm, no murmur, gallops or rub. Peripheral pulses normal. Lungs: Clear to auscultate bilateral, no wheezing, rhonchi, crackles. Abdomen: Soft, non tender non distended, BS+, No organomegaly. Extremities: no edema, otherwise grossly normal, warm, and dry. Skin: warm, dry, No rash or Ulcer. Neuro: alert, oriented x3, cranial nerves intact, sensory/motor within normal range. Psych: normal mood and affect. LABS: Recent Results (from the past 24 hour(s)) URINALYSIS, REFLEX TO MICROSCOPIC Collection Time: 06/10/23 3:42 PM Result Value Ref Range Color, Urine Yellow Light Yellow, Yellow, Dark Yellow Clarity, Urine Clear Clear Glucose, Urine Negative Negative mg/dL Bilirubin, Urine Negative Negative Ketone, Urine 15 (A) Negative mg/dL Specific [place], Urine 1.043 (H) 1.003 - 1.030 Blood, Urine Trace (A) Negative pH, Urine 6.0 5.0 - 7.5 Units Protein, Urine 30 (A) Negative mg/dL Urobilinogen, Urine 1.0 0.2, 1.0 mg/dL Nitrite, Urine Positive (A) Negative Esterase, Urine Trace (A) Negative MICROSCOPIC EXAM, URINE Collection Time: 06/10/23 3:42 PM Result Value Ref Range RBC, Urine 0-2 0 - 2 /HPF WBC, Urine 50+ (A) 0 - 2 /HPF Bacteria, Urine >200 (A) 0 - 25 /HPF Mucus, Urine Many (A) None /HPF Yeast, Urine Present (A) None /HPF BASIC METABOLIC PANEL Collection Time: 06/10/23 10:56 PM Result Value Ref Range BUN 12 6 - 20 mg/dL Creatinine 0.8 0.6 - 1.2 mg/dL Estimated Glomerular Filtration Rate 87 >=60 mL/min Sodium 138 135 - 146 mmol/L Potassium 3.6 3.5 - 5.1 mmol/L Chloride 101 98 - 107 mmol/L CO2 27 22 - 32 mmol/L Anion Gap 10 7 - 15 mmol/L Glucose 106 70 - 120 mg/dL Calcium 7.9 (L) 8.4 - 10.2 mg/dL MAGNESIUM Collection Time: 06/10/23 10:56 PM Result Value Ref Range Magnesium 2.1 1.5 - 2.6 mg/dL PHOSPHORUS Collection Time: 06/10/23 10:56 PM Result Value Ref Range Phosphorus 2.4 (L) 2.5 - 4.8 mg/dL MAGNESIUM Collection Time: 06/11/23 5:07 AM Result Value Ref Range Magnesium 2.2 1.5 - 2.6 mg/dL PHOSPHORUS Collection Time: 06/11/23 5:07 AM Result Value Ref Range Phosphorus 2.9 2.5 - 4.8 mg/dL HEPATIC FUNCTION PANEL Collection Time: 06/11/23 5:07 AM Result Value Ref Range Albumin 3.0 (L) 3.8 - 5.0 g/dL AST 52 (H) 10 - 50 U/L Alkaline Phosphatase 142 (H) 35 - 130 U/L ALT 44 10 - 50 U/L Bilirubin, Total 0.9 <=1.2 mg/dL Bilirubin, Direct 0.4 (H) 0.0 - 0.3 mg/dL Protein 5.7 (L) 6.0 - 8.3 g/dL BASIC METABOLIC PANEL Collection Time: 06/11/23 5:07 AM Result Value Ref Range BUN 10 6 - 20 mg/dL Creatinine 0.8 0.6 - 1.2 mg/dL Estimated Glomerular Filtration Rate 87 >=60 mL/min Sodium 141 135 - 146 mmol/L Potassium 3.3 (L) 3.5 - 5.1 mmol/L Chloride 103 98 - 107 mmol/L CO2 28 22 - 32 mmol/L Anion Gap 10 7 - 15 mmol/L Glucose 92 70 - 120 mg/dL Calcium 7.8 (L) 8.4 - 10.2 mg/dL CBC Collection Time: 06/11/23 5:07 AM Result Value Ref Range WBC 9.39 4.00 - 10.80 K/uL RBC 4.42 4.50 - 5.25 M/uL HGB 13.3 (L) 14.0 - 16.8 g/dL HCT 39.7 (L) 40.0 - 48.4 % MCV 89.8 82.0 - 99.5 fL MCH 30.1 27.0 - 34.0 pg MCHC 33.5 32.0 - 36.0 g/dL RDW 13.5 11.5 - 15.5 % PLT 155 140 - 400 K/uL MPV 11.1 6.6 - 11.1 fL nRBCs 0 <=0 /100 WBCs IMPRESSION AND PLAN: Principal Problem: Intractable nausea and vomiting Active Problems: HTN, goal below 140/90 PMR (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) (HCC) nursing home current use of systemic steroids Prostate cancer metastatic to bone (HCC) Hypokalemia SANJEEV (obstructive sleep apnea) Chronic respiratory failure with hypoxia ([facility]) Hypertensive heart and kidney disease with chronic diastolic congestive heart failure and stage 3a chronic kidney disease ([facility]) COPD, group C, by GOLD 2017 classification ([facility]) DNR (do not resuscitate) [place] (hard of hearing) Hypophosphatemia UTI (urinary tract infection) Resolved Problems: * No resolved hospital problems. * Plan: - Keep NPO after midnight for GI eval tomorrow. Cause of nausea, vomiting unclear as patient has noobstruction. ? Schtzki ring ? Mass effect from epigastric lesion - Iv ceftriaxone for UTI - Replace K and recheck later today - Stop fluids - Follow urine cx - PT/OT - CM consult Diet : HHD Activity :OOB DVT Prophylaxis: heparin SQ 55 minutes were spent in the care of this patient. More than half of my time was spent counseling the patient or family, coordinating care for the patient on the floor, and chart review . This chart was completed in part utilizing [employer] Voice Recognition Software. Grammatical errors, random word insertions, prounoun erros, and incomplete sentences are an occasional consequence of this system due to software limitations, ambient noise, and hardware issues. Any formal questions or concerns about the content, text, or information contained within the body of this dictation should be directly addressed to the provider for clarification. Note: To contact a physician responsible for this patients hospital care, please call [employer] [phone]. documented in this encounter H&P Notes * Luciana Greenberg PA-C - 06/10/2023 3:57 PM EST Images from the original note were not included. 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 Reviewed previous medical records. Patient was last admitted here 05/21/2023 and 05/27/2023 for uncontrolled pain, N/V. He was having constipation at that time, which was management w/laxatives. For his back pain, he was discharged on tramadol and baclofen. Patient felt better transiently after discharge home. But really since then, he hasn't been able tokeep hardly any food or drink down. He has abdominal pains. Bowel movements have been regular, lastone was yesterday. No fevers or chills. Outpatient doctor tried him on reglan, feels like it made his symptoms worse. He is just continually vomiting and last night was especially rough, so theybrought patient back to the ED for evaluation last night. Of note, patient had PET CT w/multiple areas of mets (including liver) - patient is to have biopsy of liver lesion soon and then is to followup w/oncology a week later to find out treatment options. Patient isn't on any kind of cancer treatment at this time. He denies any issues w/his urination. Work up in the ED significant for potassium 2.5 (he was given 10meq IV potassium x 1 dose in the ED) and phos 2.0. UA looks positive for infection. D-dimer was elevated therefore CT PE study was ordered and is currently pending. No abdominal imaging done yet today. Subjective Patient's past history, medications, and allergies were reviewed. Objective Physical Exam Most Recent Vital Signs: BP: 196 mmHg/98 mmHg (06/10/23 1530) Pulse: 73 (06/10/23 1530) Temp: 36.72 C (06/10/23 1108) Resp: 19 (06/10/23 1530) SpO2: 96 % (06/10/23 1430) General: Pt in bed, alert, in no acute distress, + T[place]-BILOXI Head: Normocephalic, No masses, lesions, tenderness or abnormalities Oropharynx: mucous membranes moist without erythema or exudates Neck: supple, nontender, no cervical adenopathy palpable Heart: regular rate & rhythm and no murmur appreciated Lungs: no respiratory distress, CTA, without wheeze, rhonchi or crackles Abdomen: + BS, soft, +mild periumbilical tenderness, nondistended, no rebound tenderness or guarding Lower Extremities: +1 pitting edema but his legs appear shriveled (family reports swelling has [place] a lot), no calf tenderness, + stasis changes noted STUDIES: Encounter Orders Labs and other studies reviewed with pertinent findings noted below: Recent Results (from the past 24 hour(s)) COMPREHENSIVE METABOLIC PANEL Collection Time: 06/10/23 12:04 PM Result Value Ref Range BUN 14 6 - 20 mg/dL Creatinine 0.7 0.6 - 1.2 mg/dL Estimated Glomerular Filtration Rate 88 >=60 mL/min Sodium 137 135 - 146 mmol/L Potassium 2.5 (L) 3.5 - 5.1 mmol/L Chloride 93 (L) 98 - 107 mmol/L CO2 29 22 - 32 mmol/L Anion Gap 15 7 - 15 mmol/L Glucose 138 (H) 70 - 120 mg/dL Albumin 3.6 (L) 3.8 - 5.0 g/dL AST 63 (H) 10 - 50 U/L Alkaline Phosphatase 165 (H) 35 - 130 U/L Bilirubin, Total 1.1 <=1.2 mg/dL Calcium 8.6 8.4 - 10.2 mg/dL Protein 6.8 6.0 - 8.3 g/dL ALT 48 10 - 50 U/L LIPASE Collection Time: 06/10/23 12:04 PM Result Value Ref Range Lipase 32 13 - 60 U/L LACTATE Collection Time: 06/10/23 12:04 PM Result Value Ref Range Lactate 1.7 0.4 - 2.0 mmol/L CBC Collection Time: 06/10/23 12:04 PM Result Value Ref Range WBC 9.72 4.00 - 10.80 K/uL RBC 5.20 4.50 - 5.25 M/uL HGB 15.3 14.0 - 16.8 g/dL HCT 46.0 40.0 - 48.4 % MCV 88.5 82.0 - 99.5 fL MCH 29.4 27.0 - 34.0 pg MCHC 33.3 32.0 - 36.0 g/dL RDW 13.2 11.5 - 15.5 % PLT 172 140 - 400 K/uL MPV 11.1 6.6 - 11.1 fL nRBCs 0 <=0 /100 WBCs DIFFERENTIAL, AUTOMATED Collection Time: 06/10/23 12:04 PM Result Value Ref Range WBC 9.72 4.00 - 10.80 K/uL Neutrophils % 88.1 (H) 40.0 - 75.0 % Lymphocytes % 3.8 (L) 18.0 - 42.0 % Monocytes % 7.6 1.0 - 11.0 % Eosinophils % 0.0 0.0 - 6.0 % Basophils % 0.1 0.0 - 2.0 % Immature Granulocytes % 0.4 0.0 - 2.0 % Absolute Neutrophils 8.56 (H) 1.80 - 7.70 K/uL Absolute Lymphocytes 0.37 (L) 1.00 - 4.80 K/ul Absolute Monocytes 0.74 0.00 - 1.10 K/uL Absolute Eosinophils 0.00 0.00 - 0.70 K/uL Absolute Basophils 0.01 0.00 - 0.20 K/uL Absolute Immature Granulocytes 0.04 0.00 - 0.20 K/uL D-DIMER Collection Time: 06/10/23 12:04 PM Result Value Ref Range D-Dimer 1.46 (H) <0.50 ug/mL FEU TROPONIN T, HIGH SENSITIVITY Collection Time: 06/10/23 12:04 PM Result Value Ref Range Troponin T, High Sensitivity 30 (H) <=22 ng/L BNP, NT-PRO Collection Time: 06/10/23 12:04 PM Result Value Ref Range BNP, NT-Pro 1,302 (H) <300 pg/mL MAGNESIUM Collection Time: 06/10/23 12:04 PM Result Value Ref Range Magnesium 2.1 1.5 - 2.6 mg/dL PHOSPHORUS Collection Time: 06/10/23 12:04 PM Result Value Ref Range Phosphorus 2.0 (L) 2.5 - 4.8 mg/dL RESPIRATORY PATHOGEN PANEL, PCR Collection Time: 06/10/23 12:50 PM Result Value Ref Range Adenovirus by PCR [...] Negative Bordetella parapertussis by PCR Negative Negative TROPONIN T, HIGH SENSITIVITY Collection Time: 06/10/23 1:42 PM Result Value Ref Range Troponin T, High Sensitivity 28 (H) <=22 ng/L URINALYSIS, REFLEX TO MICROSCOPIC Collection Time: 06/10/23 3:42 PM Result Value Ref Range Color, Urine Yellow Light Yellow, Yellow, Dark Yellow Clarity, Urine Clear Clear Glucose, Urine Negative Negative mg/dL Bilirubin, Urine Negative Negative Ketone, Urine 15 (A) Negative mg/dL Specific [place], Urine 1.043 (H) 1.003 - 1.030 Blood, Urine Trace (A) Negative pH, Urine 6.0 5.0 - 7.5 Units Protein, Urine 30 (A) Negative mg/dL Urobilinogen, Urine 1.0 0.2, 1.0 mg/dL Nitrite, Urine Positive (A) Negative Esterase, Urine Trace (A) Negative XR CHEST 2 VIEWS Final Result PROCEDURE INFORMATION: Exam: XR Chest Exam date and time: 06/10/2023 12:58 PM Age: 88 years old Clinical indication: Other: Cough TECHNIQUE: Imaging protocol: Radiologic exam of the chest. Views: 2 views. COMPARISON: DX XR ABDOMEN OBSTRUCT SERIES W CHEST 1 VIEW 05/26/2023 1:07 PM FINDINGS: Lungs: Elevation of the right hemidiaphragm is seen due to an anterior focal eventration. No new focal consolidation is seen. There is prominence of the right hilum due to chronic atelectasis Pleural spaces: There is no pleural effusion Heart/Mediastinum: The heart is not enlarged Bones/joints: There has been a sternotomy IMPRESSION IMPRESSION: Chronic change THIS DOCUMENT HAS BEEN ELECTRONICALLY SIGNED BY NASRIN SPEARS MD CT PULMONARY EMBOLUS W CONTRAST (Results Pending) CT ABD/PELVIS WO IV/ORAL CONTRAST (Results Pending) EKG tracing from today reviewed and per my interpretation appears like sinus rhythm w/possible U waves noted Assessment and Plan IMPRESSION/PLAN: Principal Problem: Intractable nausea and vomiting Active Problems: HTN, goal below 140/90 PMR (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) (HCC) nursing home current use of systemic steroids Prostate cancer metastatic to bone (HCC) Hypokalemia SANJEEV (obstructive sleep apnea) Chronic respiratory failure with hypoxia (HCC) 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) COPD, group C, by GOLD 2017 classification ([facility]) DNR (do not resuscitate) [place] (hard of hearing) Hypophosphatemia UTI (urinary tract infection) Resolved Problems: * No resolved hospital problems. * Intractable nausea and vomiting leading to electrolyte abnormalities (hypokalemia and hypophosphatemia) Admit to tele floor CT abd/pelvis now STAT to rule out any obstruction Anti-emetics, will try zofran and if that's ineffective will try compazine Reglan wasn't helping at home so hold for now Replace electrolytes: 2 packets of phos-nak ordered, 10 meq IV potassium x 3, 40 meq PO liquid potassium and will do gentle iv hydration w/IV isolyte w/40meq k 50 cc/hr for a total of 20 hours (1000 cc) Resume home potassium supplement tomorrow Recheck potassium at midnight and again in the AM Recheck phos in AM Hold home lasix x 2 days (monitor volume status considering chronic CHF dx) Hold home spironolactone Resume other home anti-htn meds Rocephin for possible UTI, check urine culture Patient is supposed to have biopsy of liver lesion outpatient to find primary source of mets PHARMACOLOGIC VTE PROPHYLAXIS:Enoxaparin CODE STATUS: No Code EXPECTED DISCHARGE DATE: No information available I spent a total of 78 minutes coordinating, documenting, and providing care for this patient excluding time spent in the performance of separately billed services. Patient seen along with Dr. Duff and we discussed the case and plan of care. Luciana Greenberg PA-C 06/10/2023 3:58 PM Associated attestation - Anton Duff MD - 06/10/2023 5:28 PM EST I have reviewed the advanced practitioner documentation and agree. I saw and evaluated the patient on date of service referenced in note and have performed the following medically appropriate historyand/or exam. documented in this encounter Procedure Notes * Jacob Carmona DO - 06/10/2023 11:29 AM ESTAssociated Order(s): EKG REASON FOR STUDY: VOMIT CONCLUSIONS: Atrial rhythm undetermined Left axis deviation Left ventricular hypertrophy with secondary QRS widening Abnormal ECG When compared with ECG of 21-MAY-2023 04:23, Warning: interpretation of this ECG, although attempted, may be adversely affected by data quality Suggest repeat tracing with better attention to quality of tracing Ventricular Rate: 67 Atrial Rate: 326 QRS Duration: 122 QT/QTc: 438/462 ms P-R-T Mead: 0 : -46 : -2 degrees documented in this encounter Consult Notes * Courtney Musa OT - 06/13/2023 10:13 AM ESTAssociated Order(s): ADULT OCCUPATIONAL THERAPY CONSULT IP GENERAL EVALUATION - Occupational Therapy [facility] [id number] Name: Dedrick Peters Location: [facility] [id number] Date: 06/13/2023 Time: 1013 Dedrick Peters is a 88 year old male. Per H&P "Patient w/PMH of NHL (11 years ago), prostate cancer w/bone mets, chronic diastolic CHF, DM, PMR, on chronic steroids (prednisone 5 mg daily), chronic hypoxic respiratory failure (on 1.5-2 L oxygen via NC), Reveles's esophagus w/history of stricture in the past, SANJEEV on CPAP, spinal stenosis presents to the ED today for nausea and vomiting, can't keep anything down. Reviewed previous medical records. Patient was last admitted here 05/21/2023 and 05/27/2023 for uncontrolled pain, N/V.He was having constipation at that time, which was management w/laxatives. For his back pain, he was discharged on tramadol and baclofen. Patient felt better transiently after discharge home. But really since then, he hasn't been able tokeep hardly any food or drink down. He has abdominal pains. Bowel movements have been regular, last one was yesterday. No fevers or chills. Outpatient doctor tried him on reglan, feels like it made his symptoms worse. He is just continually vomiting and last night was especially rough, so they brought patient back to the ED for evaluation last night. Of note, patient had PET CT w/multiple areas of mets (including liver) - patient is to have biopsy of liver lesion soon and then is to follow up w/oncology a week later to find out treatment options. Patient isn't on any kind of cancer treatment at this time. He denies any issues w/his urination. Work up in the ED significant for potassium 2.5 (he was given 10meq IV potassium x 1 dose in the ED) and phos 2.0. UA looks positive for infection. D-dimer was elevated therefore CT PE study was ordered and is currently pending. No abdominal imaging done yet today." Patient Status: Inpatient Insurance: Payor: [facility] [employer] Plan: [facility] [employer] CLASSIC 1 PART D - Product Type: *No Product type* Patient Seen: at bedside, nursing cleared patient for therapy Patient Identified By: Name, ID Band and Date Diagnosis: decreased endurance, ADL deficits, (06/13/23 1013) Status of treatment: Evaluation completed (06/13/23 1038) Orders: OT evaluation and treatment (06/13/23 1013) Weight Bearing Status: Weight bearing as tolerated (06/13/23 1013) Precautions: Alarms;Falls;Safety;Oxygen (06/13/23 1013) Total Treatment Time: 25 (06/13/23 1038) Past Medical History: Past Medical History: Diagnosis Date ADVANCE DIRECTIVE [...] 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 Hodgkin lymphoma ([facility]) Jun 2011 Hodgkin lymphoma, unspecified, unspecified site (HCC) 03/21/2017 HTN, goal below 140/90 HYPERTROP PROSTATE W/O URIN OB 12/22/2003 Irritable bowel syndrome KNEE JOINT REPLACEMENT STATUS, R and L 11/28/2008 Lens replaced by other means OU nursing home current use of systemic steroids 10/18/2012 Mediastinal mass 06/16/2011 Nodular prostate without urinary obstruction 10/04/2001 Noise-induced hearing loss Osteoarthrosis Osteoarthrosis, unspecified whether generalized or localized, other specified sites Other visual distortions and entoptic phenomena 03/07/02 os Phlebitis and thrombophlebitis of other deep vessels of lower extremities 11/24/08 [facility] ER. LLE s/p TKA:3-6M coumadin Pneumonia Prostate cancer (HCC) 01/11/2016 Pulmonary arterial hypertension ([facility]) Retinal edema 04/01/2010 Sleep apnea, obstructive SPINAL STENOSIS Mild L4-5 11/28/2007 Vitreous degeneration 03/07/02 os Past Surgical History: Past Surgical History: Procedure Laterality Date ARTHROPLASTY KNEE TOTAL 05/12/2008 ARTHROPLASTY KNEE TOTAL performed by KOSTAS YEBOAH at [place] [facility] ARTHROPLASTY KNEE TOTAL 11/19/2008 ARTHROPLASTY KNEE TOTAL performed by KOSTAS YEBOAH at [facility] ARTHROPLASTY KNEE TOTAL bilateral BRONCHOSCOPY, DIAGNOSTIC 06/22/2011 BRONCHOSCOPY DIAGNOSTIC WITH OR WITHOUT WASHING performed by PAM PRATT at ENDOSCOPY [facility] COLONOSCOPY W/ BIOPSY (RECTUM) 04/05/2007 hyperplastic polyps--repeat 5 years COLONOSCOPY W/ LESION REMOVAL, SNARE 04/05/2007 path pending COLONOSCOPY W/ SUBMUCOUS INJ 04/05/2007 COLONOSCOPY, DIAGNOSTIC (RECTUM) 12/20/2013 COLONOSCOPY FLEXIBLE PROXIMAL DIAGNOSTIC performed by Arnoldo Oseguera MD at ENDOSCOPY [facility] EGD, FLEXIBLE, DIAGNOSTIC N/A 04/25/2018 hiatal hernia/moderate Schatzki ring, dilated/biopsies show Reveles's esophagitis/recall 1 year/ESOPHAGOGASTRODUODENOSCOPY (EGD), FLEXIBLE, TRANSORAL, DIAGNOSTIC performed by Ulices Chaney MD at OR [facility] EGD, FLEXIBLE, DIAGNOSTIC N/A 05/21/2019 mild schatzki ring, dilated/small hiatal hernia/multiple gastric polyps/biopsies from esophagus andstomach show inflammatory changes/ESOPHAGOGASTRODUODENOSCOPY (EGD), FLEXIBLE, TRANSORAL, DIAGNOSTICperformed by Trina Plaza DO at OR [facility] FLUORO UPPER GI W AIR WO KUB 01/2010 small-mod HH w some reflux INJECT DX/THER SUBSTANCE INTERLAMINAR LUMBAR/SACRAL W IMAGE GUIDE 01/30/2017 INJECTION SPINE LUMBAR OR SACRAL performed by John Ware DO at OR [facility] INJECT DX/THER SUBSTANCE INTERLAMINAR LUMBAR/SACRAL W IMAGE GUIDE 02/16/2017 INJECTION SPINE LUMBAR OR SACRAL performed by John Ware DO at OR [facility] INJECTION OF EYE DRUG 04/01/2010 #1 [...] 01/23/2013 #2 Lucentis 0.5mg OS, Dr. Shafer ([facility]# [id number]) INJECTION OF EYE DRUG 02/27/2013 #3 LUCENTIS 0.5mg OS, Dr. Shafer ([facility]:[id number]) INJECTION OF EYE DRUG 04/10/2013 #4 Lucentis 0.5mg OS, Dr. Shafer INJECTION OF EYE DRUG 05/08/2013 #5 Lucentis 0.5mg OS, [facility]#[id number] INJECTION OF EYE DRUG 06/12/2013 #6 Lucentis 0.5mg OS, Dr. Shafer INJECTION OF EYE DRUG 08/02/2013 #7 Lucentis 0.5mg OS, Dr. Shafer INJECTION OF EYE DRUG 09/17/2013 #8 Lucentis 0.5mg OS, Dr. Shafer INJECTION OF EYE DRUG 11/11/2013 #9 Lucentis 0.5mg OS, Dr. Shafer ([facility]: [id number]) INJECTION OF EYE DRUG 02/07/2014 #10 Lucentis 0.5mg OS, Dr. Shafer ([facility]: [id number]) INJECTION OF EYE DRUG 03/28/2014 #11 Lucentis [...] DRUG Right 06/13/2022 #31 Lucentis 0.5 OD HOLLIS INJECTION OF EYE DRUG Right 07/28/2022 # [...] OD; Dr Shafer INTERSTITIAL RADIATION APPLICATION, COMPLEX MISCELLANEOUS ORDER ([facility] ONLY) 09/07/2010 Consent signed-Avastin OS, Dr. Shafer MISCELLANEOUS ORDER ([facility] ONLY) 09/13/2011-09/12/2012 Avastin consent signed OS;Dr.Cessna ZULUAGA ORDER ([facility] ONLY) 11/14/2011-11/13/2012 EYLEA CONSENT SIGNED OS; DR SHAFER MISCELLANEOUS ORDER ([facility] ONLY) 11/23/2012-11/23/2013 Eylea OS Consent signed, Dr.Cessna URRUTIACELLANEOUS ORDER ([facility] ONLY) 11/23/2012-11/23/2013 Lucentis 0.5mg OS, consent signed, MISCELLANEOUS ORDER ([facility] ONLY) 06/2011 Port placement MISCELLANEOUS ORDER ([facility] ONLY) 11/11/2013-11/11/2014 LUCENTIS 0.5MG CONSENT OS SIGNED;DR HOLLIS URRUTIACELLVALERIANO ORDER ([facility] ONLY) Left 12/23/2014-12/24/2015 LUCENTIS 0.5MG CONSENT SIGNED OS; DR HOLLIS URRUTIACELLANEOUS ORDER ([facility] ONLY) Bilateral 06/27/2018-06/27/2019 LUCENTIS CONSENT [...] performed by Jaya Velazquez MD at OR [facility] RESECTION OF CHEST TUMOR 07/11/2011 EXCISION OF MEDIASTINAL TUMOR performed by PAM KRISHNAMURTHY at [facility] STRESS NUCLEAR (PHARM) 03/2008 normal, EF 71% Social History/Disposition Lives with: Spouse (06/13/231012) Assistance available: Yes (06/13/231012) Dwelling type: Single story home (06/13/23 101) Entry steps: None (06/13/231012) Inside steps: None (06/13/231012) Bedroom location: 1st floor (06/13/231012) Bath location: 1st floor shower (06/13/231012) Prior Level of Function Reported by: Patient (06/13/231012) Ambulation: Ambulatory with device (06/13/231012) Ambulatory Device: Rollator (06/13/231012) Grooming: Independent (06/13/231012) Bathing: Assistance (06/13/231012) Dressing: Assistance (06/13/231012) Feeding: Independent (06/13/231012) Toileting: Independent (06/13/231012) Meal Prep: Dependent (06/13/231012) Homemaking: Dependent (06/13/231012) Shopping: Dependent (06/13/231012) Medication Management: Dependent (06/13/231012) Money Management: Dependent (06/13/231012) Occupation/Leisure Skills: (Audiobooks, sports) (06/13/23 101) Driving: No (06/13/231012) Durable Medical Equipment at home: Hospital bed;Rolling walker;Shower chair;Grab bars;Bedside commode;Rollator (06/13/231012) Subjective: Pt without significant comment and agreeable to participate in therapy. Pain: Patient has complaints of pain. Pain located in back. [address] AWAY DRIVER notified Observations Consciousness: Alert (06/13/23 101) Orientation: Oriented times 4 (06/13/231012) Cognitive Limitations: (none noted on OT eval) (06/13/231012) Visual Deficits: (blindness) (06/13/231012) Sitting posture: Forward head;Rounded shoulders (06/13/231012) Standing posture: Forward head;Rounded shoulders (06/13/231012) Safety awareness: The Patient verbalizes insight of current deficits.;The Patient demonstrates carryover of insight during functional tasks.;Needs cueing supervision. (06/13/231012) Other Findings Light touch sensation: LUE;RUE;Intact (06/13/231012) Coordination: LUE;RUE;Fine motor;Gross motor;Impaired (06/13/231012) Current Functional Status: Bilateral Upper Extremity Range of Motion: WFL (06/13/231012) Strength Assessment: Deficits noted (06/13/231012) LUE: Shoulder;Elbow;Wrist;Grasp;4/5 (06/13/231012) RUE: Shoulder;Elbow;Wrist;Grasp;4/5 (06/13/231012) Self Care Able to provide self care: Yes (06/13/231012) Feeding: Supervision (Please comment) (06/13/231012) Grooming: Supervision (Please comment) (06/13/231012) Toileting: Minimal Assistance (06/13/231012) Dressing Upper Body: Minimal Assistance (06/13/231012) Lower Body: Minimal Assistance (06/13/231012) Bathing Upper Body: Minimal Assistance (06/13/231012) Lower Body: Minimal Assistance (06/13/231012) Functional Ambulation Assistive Device: Rolling walker (06/13/231012) Distance in feet:: 30 (06/13/231012) Level of Assistance: Supervision (Please Comment) (06/13/231012) OT Transfers Sit-Stand: Supervision (Please comment) (06/13/231012) Stand-Sit: Supervision (Please comment) (06/13/231012) Toilet: Contact Guard (06/13/231012) Balance Sit (Static): Good (06/13/231012) Sit (Dynamic): Good (06/13/231012) Stand (Static): Fair (06/13/231012) Stand (Dynamic): Fair (06/13/231012) Alarm Status Patient positioned in: Chair (06/13/231012) With: Pressure pad alarm intact and functioning and call palomo in reach (06/13/231012) Patient and Family Goals: to get well and to return home Patient Education Education Topic: Role of OT;Plan of care goals (06/13/231012) Review of Precautions: Safety;Fall (06/13/231012) Method of Education: Verbalized to patient (06/13/231012) Education Provided to: Patient (06/13/231012) Response to Education: Receptive and agreeable to education (06/13/231012) Barriers to learning: Medical status (06/13/231012) Treatment Provided: Therapeutic Activity: 12 minutes Evaluation Moderate Complexity 13 minutes - 30087: Patient was cooperative and pleasant during treatment session. Moderate complexity evaluation performed and 3-5 activity limitations were identified, including ADL deficit, functional mobility deficit, decreased strength, decreased endurance, and impaired balance. Minimal or moderate modification of the functional task was necessary to complete the evaluation. Deficits Requiring O.T. Treatment: Deficits requiring O.T. treatment needs: ADL/self-care;Endurance;Balance;Fine motor coordination;Functional mobility;IADL;Safety;Upper extremity strength;Upper extremity range of motion;Weakness (06/13/231012) Goals: Bathing: Upper: supervision. Lower: minimal assistance (pt does 75%) Dressing: Upper: supervision. Lower: minimal assistance (pt does 75%). Transfers with: Sit to Stand: modified independent (with device or slow) Toilet: modified independent (with device or slow) Bed to Chair/Wheelchair: modified independent (with device or slow). Demonstrates ability to tolerate 3/3 meals OOB for 2 consecutive days in a row. Demonstrates Grooming at modified independent (100% with device and additional time). Demonstrates toileting at modified independent (100% with device and additional time) Goal Time Frame: Within 1-10 treatment sessions Assessment: Pt tolerated OT session well. Pt was A&Ox4 and able to answer all prior functional level questions without assist. Pt demonstrated B UE ROM WFL but has significantly decreased B UE strength needed for engagement indaily activities. Pt performed ambulatory chair <> toilet transfer using the RW for stability with SPV for safety while ambulating and CG for sit <> stand from the chair. Discussed low vision strategies and home setup with family in order to address fall risks and educate family. Pt and family verbalized understanding of educated provided. Pt was positioned for comfort in chair with pressure pad alarm intact and functioning and call bellin reach. OT AM-PAC: 18 Pt requires assist with grooming, bathing, dressing , and toileting. As such, Would consider post-acute care services which may include home health, long term, outpatient therapy,or inpatient rehab. The level of care will be determined in collaboration with the patient, family/caregiver, and care team members. Skilled OT services warranted here at [facility] to address deficits in ADLs and functional mobility. Treatment Plan: Energy Conservation, Safety, Homemaking Skills, Bed mobility training, Functional Ambulation, Transfer training, Coordination Tasks, ROM exercises, Upper extremity strengthening, Balance activities, ADL training, and Endurance Anticipated Frequency (on eval): 1 to 3 times per week (06/13/23 101) AM-PAC Help From Another Person Eating Meals: A little (06/13/23 1013) Help From Another Person Taking Care of Personal Grooming: A little (06/13/23 101) Help From Another Person To Put On/Take Off Upper Body Clothing: A little (06/13/231012) Help From Another Person To Put On/Take Off Lower Body Clothing: A little (06/13/23 1013) Help From Another Person Toileting: A little (06/13/23 101) Help From Another Person Bathing: A little (06/13/23 1013) OT AM-PAC Score: 18 (06/13/23 1013) OT AM-PAC t-Scale Score: 38.66 (06/13/23 1013) JH HLM (Highest Level of Mobility) Goal: Level 6 walk 10 steps or more (06/13/23 1100) * Valeria Nath MD - 06/13/2023 9:31 AM ESTAssociated Order(s): PALLIATIVE MEDICINE CONSULT IP Palliative Medicine Inpatient Consult Note [facility] [id number] Name: Dedrick Peters [address]: [address] Date: 06/13/2023 Time: 9:31 AM Requesting Service General Internal Medicine Reason for Consult: Goals of care and symptom management HPI: Dedrick Peters is a 88 year old male who was admitted 06/10/2023 for uncontrolled pain/nausea/vomiting, with underlying diagnosis of NHL, prostate CA, hx of Schatzki ring, GERD, and others as below. He was in the ER on 05/09 with severe back pain and workup showed suspected lesions in the liver and peritoneal cavity, plan was for a biopsy which was planned for 06/15. He has been dealing with constipation as well as back pain. Palliative consulted for symptom management. Met with patient and his Soledad this morning. He describes his pain as mainly in his back, it moves location but is mostly paraspinal and spinal regions. It does not radiate. At its worst it is 7-8/10 severity, at best is 1-2. He previously had radiation to the area when he had treatment for lymphoma. He has been taking Tylenol and baclofen while in the hospital and gabapentin as well which has been helpful. Past Medical History: Diagnosis Date ADVANCE DIRECTIVE [...] 11/28/2008 Lens replaced by other means [facility] current use of systemic steroids 10/18/2012 Mediastinal mass 06/16/2011 Nodular prostate without urinary obstruction 10/04/2001 Noise-induced hearing loss Osteoarthrosis Osteoarthrosis, unspecified whether generalized or localized, other specified sites Other visual distortions and entoptic phenomena 03/07/02 os Phlebitis and thrombophlebitis of other deep vessels of lower extremities 11/24/08 [facility] ER. LLE s/p TKA:3-6M coumadin Pneumonia Prostate cancer (HCC) 01/11/2016 Pulmonary arterial hypertension (HCC) Retinal edema 04/01/2010 Sleep apnea, obstructive SPINAL STENOSIS Mild L4-5 11/28/2007 Vitreous degeneration 03/07/02 os Past Surgical History: Procedure Laterality Date ARTHROPLASTY KNEE TOTAL 05/12/2008 ARTHROPLASTY KNEE TOTAL performed by KOSTAS YEBOAH at [facility] ARTHROPLASTY KNEE TOTAL 11/19/2008 ARTHROPLASTY KNEE TOTAL performed by OKSTAS YEBOAH at [facility] ARTHROPLASTY KNEE TOTAL bilateral BRONCHOSCOPY, DIAGNOSTIC 06/22/2011 BRONCHOSCOPY DIAGNOSTIC WITH OR WITHOUT WASHING performed by PAM PRATT at ENDOSCOPY [facility] COLONOSCOPY W/ BIOPSY (RECTUM) 04/05/2007 hyperplastic polyps--repeat 5 years COLONOSCOPY W/ LESION REMOVAL, SNARE 04/05/2007 path pending COLONOSCOPY W/ SUBMUCOUS INJ 04/05/2007 COLONOSCOPY, DIAGNOSTIC (RECTUM) 12/20/2013 COLONOSCOPY FLEXIBLE PROXIMAL DIAGNOSTIC performed by Arnoldo Oseguera MD at ENDOSCOPY [facility] EGD, FLEXIBLE, DIAGNOSTIC N/A 04/25/2018 hiatal hernia/moderate Schatzki ring, dilated/biopsies show Reveles's esophagitis/recall 1 year/ESOPHAGOGASTRODUODENOSCOPY (EGD), FLEXIBLE, TRANSORAL, DIAGNOSTIC performed by Ulices Chaney MD at OR [facility] EGD, FLEXIBLE, DIAGNOSTIC N/A 05/21/2019 mild schatzki ring, dilated/small hiatal hernia/multiple gastric polyps/biopsies from esophagus andstomach show inflammatory changes/ESOPHAGOGASTRODUODENOSCOPY (EGD), FLEXIBLE, TRANSORAL, DIAGNOSTICperformed by Trina Plaza DO at OR [facility] FLUORO UPPER GI W AIR WO KUB 01/2010 small-mod HH w some reflux INJECT DX/THER SUBSTANCE INTERLAMINAR LUMBAR/SACRAL W IMAGE GUIDE 01/30/2017 INJECTION SPINE LUMBAR OR SACRAL performed by John Ware DO at OR [facility] INJECT DX/THER SUBSTANCE INTERLAMINAR LUMBAR/SACRAL W IMAGE GUIDE 02/16/2017 INJECTION SPINE LUMBAR OR SACRAL performed by John Ware DO at OR [facility] INJECTION OF EYE DRUG 04/01/2010 #1 Avastin [...] 01/23/2013 #2 Lucentis 0.5mg OS, Dr. Shafer ([facility]# [id number]) INJECTION OF EYE DRUG 02/27/2013 #3 LUCENTIS 0.5mg OS, Dr. Shafer ([facility]:[id number]) INJECTION OF EYE DRUG 04/10/2013 #4 Lucentis 0.5mg OS, Dr. Shafer INJECTION OF EYE DRUG 05/08/2013 #5 Lucentis 0.5mg OS, [facility]#[id number] INJECTION OF EYE DRUG 06/12/2013 #6 Lucentis 0.5mg OS, Dr. Shafer INJECTION OF EYE DRUG 08/02/2013 #7 Lucentis 0.5mg OS, Dr. Shafer INJECTION OF EYE DRUG 09/17/2013 #8 Lucentis 0.5mg OS, Dr. Shafer INJECTION OF EYE DRUG 11/11/2013 #9 Lucentis 0.5mg OS, Dr. Shafer ([facility]: [id number]) INJECTION OF EYE DRUG 02/07/2014 #10 Lucentis 0.5mg OS, Dr. Shafer ([facility]: [id number]) INJECTION OF EYE DRUG 03/28/2014 #11 Lucentis [...] DRUG Right 06/13/2022 #31 Lucentis 0.5 OD HOLLIS INJECTION OF EYE DRUG Right 07/28/2022 # [...] OD; Dr Shafer INTERSTITIAL RADIATION APPLICATION, COMPLEX MISCELLANEOUS ORDER ([facility] ONLY) 09/07/2010 Consent signed-Avastin OS, Dr. Shafer MISCELLANEOUS ORDER ([facility] ONLY) 09/13/2011-09/12/2012 Avastin consent signed OS;Dr.Cessna URRUTIACELLANEOUS ORDER ([facility] ONLY) 11/14/2011-11/13/2012 EYLEA CONSENT SIGNED OS; DR HOLLIS URRUTIACELLANEOUS ORDER ([facility] ONLY) 11/23/2012-11/23/2013 Eylea OS Consent signed, Dr.Cessna URRUTIACELLANEOUS ORDER ([facility] ONLY) 11/23/2012-11/23/2013 Lucentis 0.5mg OS, consent signed, Dr.Cessna URRUTIACELLANEOUS ORDER ([facility] ONLY) 06/2011 Port placement MISCELLANEOUS ORDER ([facility] ONLY) 11/11/2013-11/11/2014 LUCENTIS 0.5MG CONSENT OS SIGNED;DR HOLLIS FONTANEZANEOUS ORDER ([facility] ONLY) Left 12/23/2014-12/24/2015 LUCENTIS 0.5MG CONSENT SIGNED OS; DR HOLLIS URRUTIACELLANEOUS ORDER ([facility] ONLY) Bilateral 06/27/2018-06/27/2019 LUCENTIS CONSENT OU SIGNED, Dr. Cessna MISCELLANEOUS ORDER ([facility] ONLY) ACT 112 signed, 09/11/2018 MISCELLANEOUS ORDER ([facility] ONLY) Right 08/22/2019-08/22/2020 LUCENTIS 0.5MG CONSENT OU [...] performed by Jaya Velazquez MD at OR [facility] RESECTION OF CHEST TUMOR 07/11/2011 EXCISION OF MEDIASTINAL TUMOR performed by PAM KRIHSNAMURTHY at OR [facility] STRESS NUCLEAR (PHARM) 03/2008 normal, EF 71% Family History Problem Relation Age of Onset Stroke Mother age 77 Hypertension Mother Alzheimer's disease Mother Diabetes Mother Arthritis Mother Cancer Mother Bladder Stroke Brother Hypertension Brother Heart disease Brother h/o CABG Cancer Brother Bladder, age 89 Hypertension Father Stroke Father age 71 COPD Father Emphysema Father Lung Disorder Father 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 Allergies: Amoxicillin, Oxycodone, and Percocet [oxycodone-acetaminophen] Objective: Physical Exam: BP 136/70 | Pulse 58 | Temp 36.5 C (97.7 F) (Tympanic) | Resp 16 | Ht 1.727 m (5' 8") | Wt 96.8kg (213 lb 6.4 oz) | SpO2 96% | BMI 32.45 kg/m | BSA 2.15 m Constitutional: no acute distress, chronically ill HENT: normocephalic, atraumatic. Neck: no stridor Chest: normal respiratory effort Abdominal: nondistended Extremities: no edema External notes reviewed: Hospitalist and GI notes reviewed Lab / Imaging Results: Reviewed, pertinent findings: Cr 0.9, normal, Hb 13.7, normal vHistory obtained from: Patient and Discussion with other team members: Discussed with Hospitalist, Nursing Decision-making Capacity: Does Patient have Decisional Capacity? Yes Does Patient have a Healthcare Agent? Yes, Advanced Care Planning (ACP) Tab Review: Living Will in EMR: yes from 2006, designates , daughter and son as POA Prior POLST in EMR: No Discussion with Patient/Family: Met with patient and at bedside. Introduced role of Inpatient Palliative Medicine team and reviewed symptoms as above. Reviewed patient's/family's understanding of current medical situation. They know that the lesions found on the scans could be cancerous, they are waiting for the biopsy on . He has been anxious about what this could mean but overall does not want very aggressive care. We reviewed the POLST form and completed for DNR/limited/antibiotics for comfort/no artificial nutrition. ASSESSMENT/RECOMMENDATIONS: Dedrick Peters is a/an 88 year old male with the primary diagnosis of likely metastatic CA, admitted for nausea/vomiting/severe pain. Palliative Impression: Severe back pain, improved with Tylenol, gabapentin and baclofen Nausea/vomiting, improved Hx of NHL Hx of prostate CA with bone mets Metastases pending biopsy on 06/15 Goals of care - obtain biopsy, hear tx options Code status: DNR/DNI Recommendations: Regarding pain, will plan to continue current regimen as he is feeling well. Could try Tylenol TID scheduled and if pain persistent, will add a PRN medication such as Percocet or Vicodin PRN Will plan to follow patient as an outpatient - will have Katlyn call him on Mon to check in Regarding anxiety, continue Buspar, can try mirtazapine if needed F/u next week I appreciate your consult and the opportunity to assist in the care of your patient. Please do not hesitate to call or TigerText with additional questions or concerns. I will continue to follow. I spent a total of 82 minutes coordinating, documenting, and providing care for this patient excluding time spent in the performance of separately billed services. Valeria Nath MD Palliative Medicine Physician [facility] Office: [phone] 06/13/2023 * Miguelina Archuleta RDN - 06/13/2023 9:24 AM ESTAssociated Order(s): NUTRITION SERVICES (DIETITIAN) CONSULT IP CLINICAL NUTRITION CONSULT/PROGRESS NOTE [facility] [id number] Name: Dedrick Peters Location: [facility] [id number]-[id number]/D Date: 06/13/2023 Time: 9:25 AM How patient was identified (select 2): date and Name Discussed in interdisciplinary rounds: No Dedrick Peters is a 88 year old male being seen for consult by provider, reduced dietary intake, and significant unintentional weight loss Primary Diagnosis: Intractable nausea and vomiting Other pertinent information: Patient seen with , Soledad at bedside. Patient and report pt has had decreased appetite and PO intakes for about 5 weeks now, accompanied with weight loss, nausea and vomiting. Since admission, pt's nausea and vomiting now under control, and pt's appetite is improving, and eating most of his meals. Patient is also enjoying mighty shakes, ordered for increased PO intakes. Patient allowed me to perform a nutrition focused physical exam today, and presents with mild fat and muscle wasting. Patient meets criteria at for moderate chronic malnutrition. Provided education to pt and as well - regarding nausea/vomiting nutrition therapy and high calorie/high protein nut rition therapy. Answered all questions at time of visit, however provided business card for furtherquestions. Encouraged pt also follow/see out patient nutrition - pended a referral for discharge. NUTRITION ASSESSMENT: Past medical/surgical history and medications reviewed. Food/Nutrition-Related History Diet: Easy to Chew Previously followed diet: NPO Food Allergies/Intolerances: None Adult Energy Intake: Less than 75% of estimated energy requirement for greater than 1 month (moderate/severe, chronic illness). Oral Nutrition Supplement (ONS): Supplement Shake (1/2 cup provides 200 calories, 6 grams protein, 34 grams carbohydrate) TID Pertinent medications/vitamins/minerals/supplements: Colace, lasix, deltasone Pertinent Biochemical Data: Latest Reference Range & Units 06/10/23 22:56 06/11/23 05:07 06/12/23 06:10 06/13/23 05:31 Potassium 3.5 - 5.1 mmol/L 3.6 3.3 (L) 3.4 (L) 3.2 (L) (L): Data is abnormally low Potassium depleted, receiving replacement. Nutrition-Focused Physical Findings: Appearance: Ill-appearing Respiratory support: Supplemental O2 Delivery: Nasal Cannula Nasal/Oral: No issues identified Digestive: Appetite fair Last Bowel Movement: 06/12/23 (states he had loose small sm today) (06/12/232005) Cognition: Awake, alert and Oriented Skin: Intact Nutrition Focused Physical Exam: NFPE completed on 06/13/2023 Subcutaneous Fat Loss: Orbital fat pads: Mild Buccal fat: WNL Tricep: Mild Rib: WNL Muscle Loss: Temples: Mild Clavicles: Mild Shoulders: Mild Scapula: Mild Interosseous: Mild Quadriceps: Mild Calves: Mild Micronutrient Exam: Eyes: noted some arcos spots Mouth (Oral Mucosa): dry Lips: dry Gums: WNL Tongue: Red, beefy, dry Edema Location: Lower extremities;Both (06/12/232005) Edema Assessment: +2 - Description (06/12/232005) Anthropometrics Measurements Height: 172.7 cm (5' 8") (06/10/23 173) Admission weight: 96.8 kg Weight: 96.8 kg (213 lb 6.4 oz) (06/12/23 0600) BMI: 32.55 (06/10/23 1733) Usual Body Weight: 110.3 kg [place] weight: 74.3 kg [place] Weight Based on BMI: 24.9 Adjusted ideal weight: 79.8 kg Interpretation of Weight Change Prior to Admission: Greater than 7.5% weight loss in 3 months (Severe) Weight Changes Since Admission: Stable Nutrition Prescription: Energy needs: 25-30 Kcal/kg Kcal/day: 4152-1223 Based on adjusted ideal weight (79.8 kg) Protein needs: 1.2-1.3 gm/kg Protein: 96-104 Based on adjusted ideal weight Fluid needs: 25 ml/kg Fluid: 2000 ml/day Based on adjusted ideal weight Malnutrition: Malnutrition Present: Yes (06/13/23937) Adult Malnutrition Classification: Moderate (06/13/23937) Malnutrition Characteristics: Fat loss;Muscle loss;Inadequate energy intake;Weight loss (06/13/23937) Malnutrition Care Plan: Patient meets ASPEN/AND criteria for moderate malnutrition. Plan to meet 100% of estimated calorie and 100% of estimated protein requirements via therapeutic diet and a nutrition intervention of oral nutrition supplements. If patient unable to achieve estimated requirements over next 7 days, will need to consider enteral nutrition. NUTRITION DIAGNOSIS: Increased nutrient needs energy/protein related to cancer Dx as evidenced by catabolic nature of disease. Malnutrition moderate related to chronic illness as evidenced by patient consuming less than 75% ofestimated energy requirements x 1 month, greater than 7.5% weight loss x 3 months, mild fat loss, and mild muscle loss. Goals: Patient to consume greater than 75 % of daily meals and 7% of daily supplements within 7 days. NUTRITION INTERVENTION/PLAN: Orders: Oral nutrition supplement continued Supplement Shake (1/2 cup provides 200 calories, 6 grams protein, 34 grams carbohydrate) TID Education provided: Patient verbalized understanding and Other Education Material: [employer] Nutrition Care Manual Handout Nausea/vomiting nutrition therapy, High calorie/High protein nutrition therapy Pended OP nutrition referral Clinical Nutrition Recommendations: Diet: Continue current nutrition plan NUTRITION MONITORING AND EVALUATION: Nursing documentation flowsheets for percent meal intake Tolerance of supplement per patient/nursing report Lab values warranting change with MNT Weight for trends Plan follow-up: Will follow and adjust nutrition plan of care as medical condition requires. Please contact for change(s) in patient condition requiring earlier intervention. Miguelina Archuleta MS, RDN, LDN Clinical Dietitian [facility] Available via [employer] Text [phone] * Alex Durham, PT - 06/12/2023 4:44 PM ESTAssociated Order(s): ADULT PHYSICAL THERAPY CONSULT IP GENERAL EVALUATION - Physical Therapy [address] [address] Name: Dedrick Peters Location: [facility] [id number]/D Date: 06/12/2023 Time: 1643 Dedrick Peters is a/an 88 year old male. Patient Status: Inpatient Insurance: Payor: [facility] VivaRay Plan: Stylefie CLASSIC 1 PART D -LD Product Type: *No Product type* Patient Seen: at bedside, nursing cleared patient for therapy Patient Identified By: Name, ID Band and Date Diagnosis: Gait dysfunction, weakness, Intractable nausea and vomiting and UTI (06/12/231643) Status of treatment: Evaluation completed (06/12/231643) Orders: PT evaluation and treatment (06/12/231643) Weight Bearing Status: Weight bearing as tolerated;RUE;LUE;RLE;LLE (06/12/231643) Precautions: Falls;Safety;Oxygen (06/12/231643) Total Treatment Time--free text: 28 minutes (06/12/231643) HPI: Per chart review: "Patient w/PMH of 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 Reviewed previous medical records. Patient was last admitted here 05/21/2023 and 05/27/2023 for uncontrolledpain, N/V. He was having constipation at that time, which was management w/laxatives. For his back pain, he was discharged on tramadol and baclofen. Patient felt better transiently after discharge home. But really since then, he hasn't been able tokeep hardly any food or drink down. He has abdominal pains. Bowel movements have been regular, lastone was yesterday. No fevers or chills. Outpatient doctor tried him on reglan, feels like it made his symptoms worse. He is just continually vomiting and last night was especially rough, so theybrought patient back to the ED for evaluation last night. Of note, patient had PET CT w/multiple areas of mets (including liver) - patient is to have biopsy of liver lesion soon and then is to followup w/oncology a week later to find out treatment options. Patient isn't on any kind of cancer treatment at this time. He denies any issues w/his urination. Work up in the ED significant for potassium 2.5 (he was given 10meq IV potassium x 1 dose in the ED) and phos 2.0. UA looks positive for infection. D-dimer was elevated therefore CT PE study was ordered and is currently pending. No abdominal imaging done yet today." Past Medical History: Past Medical History: Diagnosis Date ADVANCE DIRECTIVE [...] 11/28/2008 Lens replaced by other means [facility] current use of systemic steroids 10/18/2012 Mediastinal mass 06/16/2011 Nodular prostate without urinary obstruction 10/04/2001 Noise-induced hearing loss Osteoarthrosis Osteoarthrosis, unspecified whether generalized or localized, other specified sites Other visual distortions and entoptic phenomena 03/07/02 os Phlebitis and thrombophlebitis of other deep vessels of lower extremities 11/24/08 [facility] ER. LLE s/p TKA:3-6M coumadin Pneumonia Prostate cancer (HCC) 01/11/2016 Pulmonary arterial hypertension (HCC) Retinal edema 04/01/2010 Sleep apnea, obstructive SPINAL STENOSIS Mild L4-5 11/28/2007 Vitreous degeneration 03/07/02 os Past Surgical History: Past Surgical History: Procedure Laterality Date ARTHROPLASTY KNEE TOTAL 05/12/2008 ARTHROPLASTY KNEE TOTAL performed by KOSTAS YEBOAH at [facility] ARTHROPLASTY KNEE TOTAL 11/19/2008 ARTHROPLASTY KNEE TOTAL performed by KOSTAS YEBOAH at [facility] ARTHROPLASTY KNEE TOTAL bilateral BRONCHOSCOPY, DIAGNOSTIC 06/22/2011 BRONCHOSCOPY DIAGNOSTIC WITH OR WITHOUT WASHING performed by PAM PRATT at [facility] COLONOSCOPY W/ BIOPSY (RECTUM) 04/05/2007 hyperplastic polyps--repeat 5 years COLONOSCOPY W/ LESION REMOVAL, SNARE 04/05/2007 path pending COLONOSCOPY W/ SUBMUCOUS INJ 04/05/2007 COLONOSCOPY, DIAGNOSTIC (RECTUM) 12/20/2013 COLONOSCOPY FLEXIBLE PROXIMAL DIAGNOSTIC performed by Arnoldo Oseguera MD at ENDOSCOPY [facility] EGD, FLEXIBLE, DIAGNOSTIC N/A 04/25/2018 hiatal hernia/moderate Schatzki ring, dilated/biopsies show Reveles's esophagitis/recall 1 year/ESOPHAGOGASTRODUODENOSCOPY (EGD), FLEXIBLE, TRANSORAL, DIAGNOSTIC performed by Ulices Chaney MD at OR [facility] EGD, FLEXIBLE, DIAGNOSTIC N/A 05/21/2019 mild schatzki ring, dilated/small hiatal hernia/multiple gastric polyps/biopsies from esophagus andstomach show inflammatory changes/ESOPHAGOGASTRODUODENOSCOPY (EGD), FLEXIBLE, TRANSORAL, DIAGNOSTICperformed by Trina Plaza, DO at OR [facility] FLUORO UPPER GI W AIR WO KUB 01/2010 small-mod HH w some reflux INJECT DX/THER SUBSTANCE INTERLAMINAR LUMBAR/SACRAL W IMAGE GUIDE 01/30/2017 INJECTION SPINE LUMBAR OR SACRAL performed by John Ware, at OR [facility] INJECT DX/THER SUBSTANCE INTERLAMINAR LUMBAR/SACRAL W IMAGE GUIDE 02/16/2017 INJECTION SPINE LUMBAR OR SACRAL performed by John Ware, DO at OR [facility] INJECTION OF EYE DRUG 04/01/2010 #1 Avastin [...] 01/23/2013 #2 Lucentis 0.5mg OS, Dr. Shafer ([facility]# [id number]) INJECTION OF EYE DRUG 02/27/2013 #3 LUCENTIS 0.5mg OS, Dr. Shafer ([facility]:[id number]) INJECTION OF EYE DRUG 04/10/2013 #4 Lucentis 0.5mg OS, Dr. Shafer INJECTION OF EYE DRUG 05/08/2013 #5 Lucentis 0.5mg OS, [facility]#[id number] INJECTION OF EYE DRUG 06/12/2013 #6 Lucentis 0.5mg OS, Dr. Shafer INJECTION OF EYE DRUG 08/02/2013 #7 Lucentis 0.5mg OS, Dr. Shafer INJECTION OF EYE DRUG 09/17/2013 #8 Lucentis 0.5mg OS, Dr. Shafer INJECTION OF EYE DRUG 11/11/2013 #9 Lucentis 0.5mg OS, Dr. Shafer ([facility]: [id number]) INJECTION OF EYE DRUG 02/07/2014 #10 Lucentis 0.5mg OS, Dr. Shafer ([facility]: [id number]) INJECTION OF EYE DRUG 03/28/2014 #11 Lucentis [...] DRUG Right 06/13/2022 #31 Lucentis 0.5 OD HOLLIS INJECTION OF EYE DRUG Right 07/28/2022 # [...] OD; Dr Shafer INTERSTITIAL RADIATION APPLICATION, COMPLEX MISCELLANEOUS ORDER ([facility] ONLY) 09/07/2010 Consent signed-Avastin OS, Dr. Shafer MISCELLANEOUS ORDER ([facility] ONLY) 09/13/2011-09/12/2012 Avastin consent signed OS;Dr.Cessna URRUTIACELLANEOUS ORDER ([facility] ONLY) 11/14/2011-11/13/2012 EYLEA CONSENT SIGNED OS; DR HOLLIS URRUTIACELLANEOUS ORDER ([facility] ONLY) 11/23/2012-11/23/2013 Eylea OS Consent signed, Dr.Cessna URRUTIACELLANEOUS ORDER ([facility] ONLY) 11/23/2012-11/23/2013 Lucentis 0.5mg OS, consent signed, Dr.Cessna URRUTIACELLANEOUS ORDER ([facility] ONLY) 06/2011 Port placement MISCELLANEOUS ORDER ([facility] ONLY) 11/11/2013-11/11/2014 LUCENTIS 0.5MG CONSENT OS SIGNED;DR HOLLIS ZULUAGA ORDER ([facility] ONLY) Left 12/23/2014-12/24/2015 LUCENTIS 0.5MG CONSENT SIGNED OS; DR HOLLIS ZULUAGA ORDER ([facility] ONLY) Bilateral 06/27/2018-06/27/2019 LUCENTIS CONSENT OU SIGNED, Dr. Hollis APARICIO ([facility] ONLY) ACT 112 signed, 09/11/2018 MISCELLANEOUS [...] performed by Jaya Velazquez MD at OR [facility] RESECTION OF CHEST TUMOR 07/11/2011 EXCISION OF MEDIASTINAL TUMOR performed by PAM KRISHNAMURTHY at OR [facility] STRESS NUCLEAR (PHARM) 03/2008 normal, EF 71% Subjective: Pt expressed willingness to participate in PT consult. Social History/Disposition Lives with: Spouse (06/12/231643) Assistance available: Yes (06/12/231643) Dwelling type: Single story home (06/12/231643) Entry steps: None (06/12/231643) Inside steps: None (06/12/231643) Bedroom location: 1st floor (06/12/231643) Bath location: 1st floor shower (06/12/231643) Pt has been sleeping in recliner at home but hopes to sleep in hospital bed at home when dischargedhome. Prior Level of Function Reported by: Patient;Family (spouse and daughter) (06/12/231643) Ambulation: Ambulatory with device (06/12/231643) Ambulatory Device: Rollator (06/12/231643) Devices at home: Rolling walker;Rollator;Grab bars;Shower chair;Bedside commode;Other - describe;Hospital bed (comfort height toilet) (06/12/231643) Observations Consciousness: Alert (06/12/231643) Orientation: Oriented times 4 (06/12/231643) Psychosocial: Patient can communicate basic needs;Patient can converse in a social setting (06/12/231643) Other Findings: Yes (06/12/231643) Findings: Light touch sensation;Coordination;Tone (06/12/231643) Light Touch Sensation Results: Intact;LLE;RLE (06/12/231643) Coordination Results: Intact;LLE;RLE (06/12/231643) Tone Results: Intact;LLE;RLE (06/12/231643) Sitting Posture: Forward head;Rounded shoulders (06/12/231643) Standing Posture: Forward head;Rounded shoulders (06/12/231643) Pain: No complaints of pain Range of Motion Range of Motion: WFL (B LE; see OT for B UE) (06/12/231643) Strength Assessment Strength Assessment: Deficits noted (06/12/231643) WNL, except: LLE;RLE (06/12/231643) LLE: 4+/5;Hip;Knee;Ankle (06/12/231643) RLE: 4+/5;Hip;Knee;Ankle (06/12/231643) Transfers Sit-Stand: Modified Independent (06/12/231643) Stand-Sit: Modified Independent (06/12/231643) W/C-Bed/Mat: Modified Independent (sitting <> sitting) (06/12/231643) Ambulation: Distance ambulated (feet): 84 Assistive Device: Rolling walker and O2 1.5L/min nc Assist: Modified Independent Gait Characteristics: Decreased speed, Decreased step length, but steady gait w/ no loss of balancefor forward amb, turning 180 degrees in each direction and backing up to sit w/ rolling walker and pt able to manage O2 tubing independently although w/ visual impairment, clear tubing at [facility] is more difficult for pt to see than green tubing at home. Balance Sit (Static): Good (06/12/231643) Sit (Dynamic): Good (06/12/231643) Stand (Static): Fair (06/12/231643) Stand (Dynamic): Fair (06/12/231643) Patient and or Family Goal(s): to get well and to return home Patient Education Review of Precautions: Safety;Fall (no amb or transfers at [facility] w/o nursing assist) (06/12/231643) Safety Awareness: Patient verbalizes insight of current deficits;Patient demonstrates carryover of insight during functional tasks;Patient can communicate basic needs (06/12/231643) Preferred learning method: Combination (06/12/231643) Barriers to learning: Medical Status;Visual impairments (06/12/231643) Method of Education: Verbalized to patient;Verbalized to family/caregiver;Demonstrated to patient;Written information provided to patient;Patient demonstrated task (spouse and daughter present t/o PTsession; fall prevention kit issued to pt) (06/12/231643) Topic of Education: Safety with mobility, Goals/plan of care, Use of assistive device, and Fall prevention and instructed pt, spouse and daughter that at current level of function if discharged home, pt is to use a rollator or rolling walker at all times for amb and transfers Method of Education: Written information provided to pt, spouse and daughter: verbalized understanding and or agreement of this information and demonstrated the exercise and or task Verbal discussion and explanation provided to pt, spouse and daughter: verbalized understanding andor agreement of this information and demonstrated the exercise and or task Demonstrated the above task to pt, spouse and daughter: verbalized understanding and or agreement of this information and demonstrated the exercise and or task Treatment Provided: Gait Training 13 minutes: gait training with rolling walker and O2 1.5L/min nc Evaluation Moderate Complexity 15 minutes - [id number]: Patient was cooperative, pleasant, motivated, and alert during treatment session. Moderate complexity evaluation performed and 1-2 personal factors or comorbidities were identified that will impact plan of care, including visual deficits and cardiac history. Patient presents with limitations in strength, transfers, gait, balance, endurance, and safety, which will impact plan of care. These limitations will be addressed by the goals set for thispatient. Alarm Status Patient positioned in: Chair (recliner, foot rest down, brakes locked, spouse and daughter w/ pt, O2 1.5L/min nc on pt) (06/12/231643) With: Call palomo in reach (06/12/231643) Treatment Status: Treatment at bedside (06/12/231643) Goals: Demonstrate Transfers with: Sit to stand: modified independent (with device or slow) Stand to sit: modified independent (with device or slow) Demonstrate Ambulation: assistive device: rolling walker distance in feet: 100 or greater level of assistance on level surface: modified independent (with device or slow) Increase Safety: w/ functional mobility Time Frame: 1-10 sessions Assessment: O2 saturation as follows on 1.5L/min O2 via nc: start of PT session 97% w/ heart rate of 64 bpm and after gait training 84 feet 95% w/ heart rate of 67 bpm. Pt presents w/ deficits in strength, balance, functional mobility and endurance but pt demonstratedmodified independence for transfers and amb w/ rolling walker, AM PAC 20. At discharge would consider post acute services which may include out patient therapy or home health. The level of care will be determined in collaboration with the patient, family/caregiver and careteam members. Skilled PT at [facility] is warranted to address deficits in strength, endurance, balance and functional mobility and to continue to assess discharge needs. Deficits requiring P.T. treatment needs: Safety;Mobility;Balance;Weakness;Endurance (06/12/231643) Equipment Needs: Equipment needs: Rollator (06/12/231643) Treatment Plan: Transfer training, Gait training, Strengthening exercises: B LE, Balance activities, and Educate on safety with functional mobility Anticipated Frequency (on eval): 3 to 5 times per week (06/12/231643) AM PAC Score with Stairs: 20 * Shanice Gastelum PA-C - 06/12/2023 4:09 PM ESTAssociated Order(s): GASTROENTEROLOGY CONSULT IP CONSULT - Gastroenterology [facility] [address] Name: Dedrick Peters Location: [facility] [id number]-4014/D Date: 06/12/2023 Time: 4:09 PM REQUESTING SERVICE: Medicine REASON FOR CONSULT: intractable nausea, vomiting ; hepatic lesions, unknown malignancy HPI: Dedrick Peters is a 88 year old male with PMHx of history of prostate cancer as well as non-Hodgkin's lymphoma. Schatzki ring, GERD, dysphagia. Recently was in the ER 05/09 with severe back pain; CTAP showing suspected neoplastic/metastatic findings in the liver and peritoneal cavity just below the sternum. Recommendations were for the pt to see IR however he was referred to GI; I saw him in clinic 05/10 and recommended he be seen by IR and PCP BLADIMIR and have his abd pain better controlled. Unfortunately was admitted 05/21->05/27 with uncontrolled pain, constipation. Plan is for IR-guided FNA as outpt on 06/15. Recent PET scan 06/02 with liver, portacaval/celiac, retroperitoneal hazel, and osseous metastases. Pt now admitted w/ intractable nausea vomiting abdominal pain. On arrival, had hypokalemia, hypophosphatemia and positive for UTI. CTAP suggested no change in metastatic findings, did suggest possible inflammatory changes along the distal rectum, in the setting of constipation. Patient states he was having issues with constipation previously with his pain medication, however,this has greatly improved. Now having abundant amount of stool, with MiraLax twice daily. Had a large bowel movement earlier today. No black or bloody stool. Denies vomiting, hematemesis, melena, hematochezia, jaundice, fever, trouble breathing. PET CT 06/02/23: 1. Multiple hypermetabolic liver foci concerning for metastasis. 2. Portacaval/celiac and retroperitoneal hazel metastases. 3. Hypermetabolic osseous metastases in T11, L2, and the left pelvis. CTAP 05/09/23: 1. Numeral small lesions throughout the liver, [...] heterogeneous prostate 6. Other chronic changes as above. US ABD 05/09/23: 1. Multiple solid lesions in the liver suspicious for neoplastic / metastatic disease, especially given patient's history 2. Substernal mass in the subcutaneous tissue of the anterior midline 3. Small gallstone or polyp in the gallbladder but no gross inflammatory change identified 4. Recommend CT to further evaluate the above findings in the liver and in the subcutaneous tissue HISTORY: Past Medical History: Past Medical History: Diagnosis Date ADVANCE DIRECTIVE [...] 11/28/2008 Lens replaced by other means [facility] current use of systemic steroids 10/18/2012 Mediastinal mass 06/16/2011 Nodular prostate without urinary obstruction 10/04/2001 Noise-induced hearing loss Osteoarthrosis Osteoarthrosis, unspecified whether generalized or localized, other specified sites Other visual distortions and entoptic phenomena 03/07/02 os Phlebitis and thrombophlebitis of other deep vessels of lower extremities 11/24/08 [facility] ER. LLE s/p TKA:3-6M coumadin Pneumonia Prostate cancer (HCC) 01/11/2016 Pulmonary arterial hypertension (HCC) Retinal edema 04/01/2010 Sleep apnea, obstructive SPINAL STENOSIS Mild L4-5 11/28/2007 Vitreous degeneration 03/07/02 os Past Surgical History: Past Surgical History: Procedure Laterality Date ARTHROPLASTY KNEE TOTAL 05/12/2008 ARTHROPLASTY KNEE TOTAL performed by KOSTAS YEBOAH at [facility] ARTHROPLASTY KNEE TOTAL 11/19/2008 ARTHROPLASTY KNEE TOTAL performed by KOSTAS YEBOAH at [facility] ARTHROPLASTY KNEE TOTAL bilateral BRONCHOSCOPY, DIAGNOSTIC 06/22/2011 BRONCHOSCOPY DIAGNOSTIC WITH OR WITHOUT WASHING performed by PAM PRATT at [facility]COPY [facility] COLONOSCOPY W/ BIOPSY (RECTUM) 04/05/2007 hyperplastic polyps--repeat 5 years COLONOSCOPY W/ LESION REMOVAL, SNARE 04/05/2007 path pending COLONOSCOPY W/ SUBMUCOUS INJ 04/05/2007 COLONOSCOPY, DIAGNOSTIC (RECTUM) 12/20/2013 COLONOSCOPY FLEXIBLE PROXIMAL DIAGNOSTIC performed by Arnoldo Oseguera MD at ENDOSCOPY [facility] EGD, FLEXIBLE, DIAGNOSTIC N/A 04/25/2018 hiatal hernia/moderate Schatzki ring, dilated/biopsies show Reveles's esophagitis/recall 1 year/ESOPHAGOGASTRODUODENOSCOPY (EGD), FLEXIBLE, TRANSORAL, DIAGNOSTIC performed by Ulices Chaney MD at OR [facility] EGD, FLEXIBLE, DIAGNOSTIC N/A 05/21/2019 mild schatzki ring, dilated/small hiatal hernia/multiple gastric polyps/biopsies from esophagus andstomach show inflammatory changes/ESOPHAGOGASTRODUODENOSCOPY (EGD), FLEXIBLE, TRANSORAL, DIAGNOSTICperformed by Trina Plaza DO at OR [facility] FLUORO UPPER GI W AIR WO KUB 01/2010 small-mod HH w some reflux INJECT DX/THER SUBSTANCE INTERLAMINAR LUMBAR/SACRAL W IMAGE GUIDE 01/30/2017 INJECTION SPINE LUMBAR OR SACRAL performed by John Ware DO at OR [facility] INJECT DX/THER SUBSTANCE INTERLAMINAR LUMBAR/SACRAL W IMAGE GUIDE 02/16/2017 INJECTION SPINE LUMBAR OR SACRAL performed by John Ware DO at OR [facility] INJECTION OF EYE DRUG 04/01/2010 #1 Avastin OS; Dr. Shafer INJECTION OF EYE DRUG 04/30/2010 #2 Avastin OS; Dr. Shafer INJECTION OF EYE DRUG 06/01/2010 #3 Avastin OS; Dr. Shafer INJECTION OF EYE DRUG 06/29/2010 #4 Avastin OS; Dr. Shafer INJECTION OF EYE DRUG 08/10/2010 #5 Avastin OS; Dr. Cessna INJECTION OF EYE DRUG 11/02/2010 #6 Avastin OS, Dr. Shafer INJECTION OF EYE DRUG 11/26/2010 #7 Avastin OS, Dr. Shafer INJECTION OF EYE DRUG 01/10/2011 #8 Avastin OS, Dr. Shafer INJECTION OF EYE DRUG 03/08/2011 #9 Avastin OS, Dr. Shafer INJECTION OF EYE DRUG 04/06/2011 #10 Avastin OS, Dr. Shafer INJECTION OF EYE DRUG 05/24/2011 #11 Avastin OS, Dr. Shaefr INJECTION OF EYE DRUG 08/02/2011 #12 Avastin [...] 01/23/2013 #2 Lucentis 0.5mg OS, Dr. Shafer ([facility]# [id number]) INJECTION OF EYE DRUG 02/27/2013 #3 LUCENTIS 0.5mg OS, Dr. Shafer ([facility]:[id number]) INJECTION OF EYE DRUG 04/10/2013 #4 Lucentis 0.5mg OS, Dr. Shafer INJECTION OF EYE DRUG 05/08/2013 #5 Lucentis 0.5mg OS, [facility]#[id number] INJECTION OF EYE DRUG 06/12/2013 #6 Lucentis 0.5mg OS, Dr. Shafer INJECTION OF EYE DRUG 08/02/2013 #7 Lucentis 0.5mg OS, Dr. Shafer INJECTION OF EYE DRUG 09/17/2013 #8 Lucentis 0.5mg OS, Dr. Shafer INJECTION OF EYE DRUG 11/11/2013 #9 Lucentis 0.5mg OS, Dr. Shafer ([facility]: [id number]) INJECTION OF EYE DRUG 02/07/2014 #10 Lucentis 0.5mg OS, Dr. Shafer ([facility]: [id number]) INJECTION OF EYE DRUG 03/28/2014 #11 Lucentis [...] OD; Dr Shafer INTERSTITIAL RADIATION APPLICATION, COMPLEX MISCELLANEOUS ORDER ([facility] ONLY) 09/07/2010 Consent signed-Avastin OS, Dr. Shafer MISCELLANEOUS ORDER ([facility] ONLY) 09/13/2011-09/12/2012 Avastin consent signed OS;Dr.Cessna URRUTIACELLANEOUS ORDER ([facility] ONLY) 11/14/2011-11/13/2012 EYLEA CONSENT SIGNED OS; DR HOLLIS URRUTIACELLANEOUS ORDER ([facility] ONLY) 11/23/2012-11/23/2013 Eylea OS Consent signed, MISCELLANEOUS ORDER ([facility] ONLY) 11/23/2012-11/23/2013 Lucentis 0.5mg OS, consent signed, MISCELLANEOUS ORDER ([facility] ONLY) 06/2011 Port placement MISCELLANEOUS ORDER ([facility] ONLY) 11/11/2013-11/11/2014 LUCENTIS 0.5MG CONSENT OS SIGNED;DR SHAFER MISCELLANEOUS ORDER ([facility] ONLY) Left 12/23/2014-12/24/2015 LUCENTIS 0.5MG CONSENT SIGNED OS; DR HOLLIS URRUTIACELLANEOUS ORDER ([facility] ONLY) Bilateral 06/27/2018-06/27/2019 LUCENTIS CONSENT OU SIGNED, Dr. Shafer MISCELLANEOUS ORDER ([facility] ONLY) ACT 112 signed, 09/11/2018 [...] performed by Jaya Velazquez MD at OR [facility] RESECTION OF CHEST TUMOR 07/11/2011 EXCISION OF MEDIASTINAL TUMOR performed by PAM KRISHNAMURTHY at OR [facility] STRESS NUCLEAR (PHARM) 03/2008 normal, EF 71% Social History: Social History Tobacco Use Smoking status: Never Smokeless tobacco: Never Vaping Use Vaping Use: Never used Substance Use Topics Alcohol use: No Drug use: No Family History: Family History Problem Relation Age of Onset Stroke Mother age 77 Hypertension Mother Alzheimer's disease Mother Diabetes Mother Arthritis Mother Cancer Mother Bladder Stroke Brother Hypertension Brother Heart disease Brother h/o CABG Cancer Brother Bladder, age 89 Hypertension Father Stroke Father age 71 COPD Father Emphysema Father Lung Disorder Father 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 Other (Other) Other no known family hx of skin disorders or skin ca Allergies: Amoxicillin, Oxycodone, and Percocet [oxycodone-acetaminophen] ROS: .compros PHYSICAL EXAMINATION: Most Recent Vital Signs: BP: 166 mmHg/70 mmHg (06/12/23 0804) Pulse: 63 (06/12/23 0804) Temp: 36.5 C (06/12/23 08) Resp: 20 (06/12/23 0804) SpO2: 95 % (06/12/23 0804) Vital Signs Last 24 Hours: Systolic BP: Most Recent Systolic BP Av mmHg Min: 152 mmHg Max: 166 mmHg Temperature: Most Recent Temperature Av.4 C Min: 36.22 C Max: 36.5 C Pulse: Pulse Av Min: 57 Max: 66 Respirations: Resp Av Min: 16 Max: 20 SpO2: SpO2 Av.5 % Min: 94 % Max: 97 % Constitutional: no acute distress, chronically ill HEENT: normal: normocephalic, atraumatic Eyes: no scleral icterus, redness, or injection Neck: supple, normal range of motion CV: normal rate and rhythm, no murmur, gallops or rub Chest: normal respiratory effort Abdomen: normal: soft, bowel sounds normal, no masses, tenderness Skin: warm and dry, no rashes Neuro: follows commands Psych: normal mood and affect, memory normal LABS: Labs reviewed. Recent Results (from the past 24 hour(s)) CBC Collection Time: 06/12/23 6:10 AM Result Value Ref Range WBC 7.06 4.00 - 10.80 K/uL RBC 4.46 4.50 - 5.25 M/uL HGB 13.2 (L) 14.0 - 16.8 g/dL HCT 40.7 40.0 - 48.4 % MCV 91.3 82.0 - 99.5 fL MCH 29.6 27.0 - 34.0 pg MCHC 32.4 32.0 - 36.0 g/dL RDW 13.6 11.5 - 15.5 % PLT 141 140 - 400 K/uL MPV 11.4 6.6 - 11.1 fL nRBCs 0 <=0 /100 WBCs BASIC METABOLIC PANEL Collection Time: 06/12/23 6:10 AM Result Value Ref Range BUN 10 6 - 20 mg/dL Creatinine 0.8 0.6 - 1.2 mg/dL Estimated Glomerular Filtration Rate 85 >=60 mL/min Sodium 141 135 - 146 mmol/L Potassium 3.4 (L) 3.5 - 5.1 mmol/L Chloride 103 98 - 107 mmol/L CO2 29 22 - 32 mmol/L Anion Gap 9 7 - 15 mmol/L Glucose 101 70 - 120 mg/dL Calcium 8.2 (L) 8.4 - 10.2 mg/dL MAGNESIUM Collection Time: 06/12/23 6:10 AM Result Value Ref Range Magnesium 2.2 1.5 - 2.6 mg/dL PHOSPHORUS Collection Time: 06/12/23 6:10 AM Result Value Ref Range Phosphorus 3.1 2.5 - 4.8 mg/dL IMAGING: CT ABD/PELVIS WO IV/ORAL CONTRAST Final Result PROCEDURE INFORMATION: Exam: CT Abdomen And Pelvis Without Contrast Exam date and time: 06/10/2023 5:06 PM Age: 88 years old Sex (administrative): male Clinical indication: Nausea; Additional info: N/v cant keep anything down, please evaluate for obstruction. Other procedure information: History of Hodgkin's lymphoma and prostate cancer. Previously shown liver metastasis and hypermetabolic osseous metastasis in T11, L2 and the left pelvis. TECHNIQUE: Imaging protocol: Computed tomography of the abdomen and pelvis without contrast. Total images: 1115. Radiation optimization: All CT scans at this facility use at least one of these dose optimization techniques: automated exposure control; mA and/or kV adjustment per patient size (includes targeted exams where dose is matched to clinical indication); or iterative reconstruction. REPORTING DATA: Count of CT and Cardiac NM exams in prior 12 months: This patient has received 4 known CTs and 0 known cardiac nuclear medicine studies in the 12 months prior to the current study. COMPARISON: 1. CT PET^[facility]) 06/02/2023 11:40 AM. 2. CTA the of the chest of 06/10/2023. 3. CT scan of abdomen and pelvis of 05/21/2023. FINDINGS: Lungs: Chronic fibrotic changes in the medial portion of the visualized right lower lung. Platelike atelectasis in the left lower lung. Heart: Cardiomegaly. Heavy calcification of the inferolateral aspect of the mitral valve ring. Minimal calcific coronary artery disease. Normal pericardium. Diaphragm: Moderate-sized hiatal hernia. In3 Relative elevation of the left hemidiaphragm. Liver: Diffuse fatty infiltration of the liver. Multiple hypodense liver lesions consistent with metastasis as previously noted. No intrahepatic biliary dilation. Normal-sized liver. Gallbladder and bile ducts: Mildly distended, similar to was seen on prior studies. No calcified stones. No ductal dilation. Pancreas: Normal. No ductal dilation. Spleen: Spleen size at upper limits of normal. Subcapsular calcifications along the lateral anterior portion of the spleen, unchanged . Adrenal glands: Normal. No mass. Kidneys and ureters: Minimal bilateral perinephric stranding. No hydronephrosis. No renal masses. Stomach and bowel: Moderate amount of stool is noted throughout the transverse colon. Descending colon is partially collapsed. Inflammatory changes surrounding the anterior portion of the distal rectum immediately superior to the area of prostate (image 77, series 2); this was not present on the prior CT scan of 05/21/2023; question acute inflammatory change possibly related to epiploic appendagitis , and less likely diverticulitis, or other etiology. Small rectosigmoid diverticuli without any other evidence of significant associated diverticulitis. The stomach and duodenum appear within normal limits. The remaining portion of the colon and small bowel appear within normal limits. No evidence of bowel obstruction. Appendix: Focal densities are noted in the proximal appendix and also in the adjacent portion of the cecum; question dense food particles or other contrast and less likely appendicolith. There is no surrounding inflammatory change. This was not seen on the prior study. The appendix is partially air-filled and otherwise appears within normal limits.. Intraperitoneal space: There is unchanged soft tissue mass in the midline anterior upper abdomen, possibly representing a peritoneal mass, measuring 2.9 x 2.8 x 2.3 cm (image 29, series 2; and sagittal image 109, series 602). This is an epigastric region mass concerning for possible metastasis. There is also large periportal lymph node between the caudate lobe and the head of the pancreas, unchanged prior studies (image 30, series 2). A new cluster of small calcified structures is noted immediately posterior to the distal transverse colon in the left anterior abdomen (image 45, series 2; question diverticuli versus less likely calcified lymph nodes versus other etiology. Not clearly appreciated on the prior studies. Vasculature: There is mild diffuse calcific atherosclerosis within the distal abdominal aorta and iliac arteries. No abdominal aortic aneurysm. Pelvic phleboliths. Lymph nodes: Unremarkable. No enlarged lymph nodes. Urinary bladder: Normal appearance of the bladder. Mild protrusion of the prostate into the lower portion of the bladder. Reproductive: . The prostate measures 4.7 x 3.6 x 3.7 cm corresponding to a volume of 33 cc, mildly increased in size. Bones/joints: Moderately severity degenerative changes in the lumbar spine with multiple levels with vacuum disc phenomena, mild sclerosis and disc space narrowing. Mild compression deformity of T11, with sclerotic changes, as previously noted. Sternotomy wires. Mild S-shaped thoracolumbar scoliosis. Focal hypodense lesion, possibly lytic lesion, in the right lateral aspect of the L2 vertebra. No evidence of other sclerotic bony lesions. The abnormality noted in the left superior acetabulum on the recent PET-CT scan is not appreciated on today's CT scan. Soft tissues: Small fat containing umbilical hernia. Small bilateral fat containing inguinal hernias. IMPRESSION IMPRESSION: 1. No evidence of bowel obstruction. 2. New inflammatory changes surrounding the anterior portion of the distal rectum, immediately superior to the area of the prostate, etiology unknown; see discussion above. Likely acute focal colitis. 3. Evidence of liver lesions and likely bony metastasis as described above, not significantly changed. 4. Multiple other abnormalities as described above. THIS DOCUMENT HAS BEEN ELECTRONICALLY SIGNED BY TERRELL THOMPSON MD CT PULMONARY EMBOLUS W CONTRAST Final Result PROCEDURE INFORMATION: Exam: CTA Chest With Contrast Exam date and time: 06/10/2023 3:01 PM Age: 88 years old Clinical indication: Other: SOB; Additional info: Positive d-dimer, mild shortness of breath, positive cancer history TECHNIQUE: Imaging protocol: Computed tomographic angiography of the chest with contrast. Exam focused on the arteries. 3D rendering (Not supervised by radiologist): MIP and/or 3D reconstructed images were created by the technologist. Radiation optimization: All CT scans at this facility use at least one of these dose optimization techniques: automated exposure control; mA and/or kV adjustment per patient size (includes targeted exams where dose is matched to clinical indication); or iterative reconstruction. Contrast material: OPTIRAY 350; Contrast volume: 100 ml; Contrast route: INTRAVENOUS (IV); REPORTING DATA: Count of CT and Cardiac NM exams in prior 12 months: This patient has received 4 known CTs and 0 known cardiac nuclear medicine studies in the 12 months prior to the current study. COMPARISON: [facility]. [facility] 06/02/2023 11:[address] CHEST W CONTRAST 05/09/2023 1:05 PM FINDINGS: Pulmonary arteries: Pulmonary artery evaluation is limited by suboptimal timing of the contrast bolus as well as cardiac motion and streak artifact. With this limitation in mind there is no evidence of large central pulmonary embolism. Segmental and smaller pulmonary artery branches are not opacified well enough for comment. Aorta: Moderate soft and calcified plaque throughout the thoracic aorta. No evidence of aneurysm. Evaluation of the ascending aorta is limited by motion and streak artifact. Lungs: Scattered nonspecific opacities in the upper and lower lobes. Paramediastinal fibrotic changes likely related to prior radiation treatment. 8 mm pleural-based superior segment left lower lobe pulmonary nodule, image 88 series 2, stable from 05/09/2023 exam. Pleural spaces: No pleural effusion or pneumothorax. Heart: Moderate cardiomegaly. Moderate coronary artery calcification. No pericardial effusion. Lymph nodes: 1.3 cm right lower paratracheal lymph node, stable from prior. No bulky or necrotic lymphadenopathy. Liver: Re-demonstration of multiple hypodensities in the liver, hypermetabolic on recent PET-CT, consistent with metastatic disease. Bones/joints: Partial compression deformity of a lower thoracic vertebra, most likely T11, with mottled sclerosis. Post sternotomy changes with multiple sternal suture wires. Soft tissues: Soft tissues are unremarkable as visualized. IMPRESSION IMPRESSION: 1. Limited quality exam shows no evidence of large central pulmonary embolism. 2. Scattered nonspecific pulmonary opacities consistent with areas of parenchymal scar/atelectasis and paramediastinal fibrotic changes likely related to prior radiation therapy. 8 mm pleural-based left lower lobe pulmonary nodule, stable from prior. 3. Moderate cardiomegaly and atherosclerotic aorta. 4. Re-demonstration of multiple liver lesions consistent with metastatic disease. See report from recent CT PET exam of 06/02/2023 for further discussion. 5. Mild superior endplate compression at T11 with sclerotic changes in the vertebral body and hypermetabolism on recent CT PET consistent with metastatic disease. THIS DOCUMENT HAS BEEN ELECTRONICALLY SIGNED BY MANOHAR SMALLS MD XR CHEST 2 VIEWS Final Result PROCEDURE INFORMATION: Exam: XR Chest Exam date and time: 06/10/2023 12:58 PM Age: 88 years old Clinical indication: Other: Cough TECHNIQUE: Imaging protocol: Radiologic exam of the chest. Views: 2 views. COMPARISON: DX XR ABDOMEN OBSTRUCT SERIES W CHEST 1 VIEW 05/26/2023 1:07 PM FINDINGS: Lungs: Elevation of the right hemidiaphragm is seen due to an anterior focal eventration. No new focal consolidation is seen. There is prominence of the right hilum due to chronic atelectasis Pleural spaces: There is no pleural effusion Heart/Mediastinum: The heart is not enlarged Bones/joints: There has been a sternotomy IMPRESSION IMPRESSION: Chronic change THIS DOCUMENT HAS BEEN ELECTRONICALLY SIGNED BY NASRIN SPEARS MD IMPRESSION: Dedrick Peters is a(n) 88 year old male who presents with history of prostate cancer as well as non-Hodgkin's lymphoma. Recently developed back pain; CTAP showing suspected neoplastic/metastatic findings in the liver and peritoneal cavity just below the sternum. He was referred to IR and FNA panned for 06/15. Unfortunately he is now admitted due to intractable symptoms of nausea vomiting abdominal pain. He did have constipation but this is improved. With current symptomatic treatment, he is actually feeling much better. Abdominal pain is improved,and nausea is much improved, he actually feels like eating. When I was in the room they did bring his tray and he was actually eating mashed potatoes green beans and liquids without any trouble. RECOMMENDATIONS/PLAN: - Pt should have f/u with IR bx as planned on 06/15, and f/u heme/onc thereafter - Would encouraged him to meet w/ nutrition/supervisor files for meal planning - I placed a consult order - Would encourage him to establish with palliative care to better control his symptoms - Would continue antiemetics, analgesia as he has had in the hospital as he has responded quite well to it - Bowel regimen daily with Miralax BID - GI will sign off, please call with questions I have discussed the case with my attending, Dr Plaza. Associated attestation - Trina Plaza DO - 06/13/2023 8:39 AM EST I have reviewed the advanced practitioner documentation and agree. I saw and evaluated the patient on date of service referenced in note and have performed the following medically appropriate historyand/or exam. The patient presents with a history of abdominal discomfort, review of the patient's CT upon admission does showed a large amount of stool within the distal colon and rectum. The patientis to have a biopsy performed by Interventional Radiology at some point in the near future. The patient's abdominal pain could be related to 1 of his medications perhaps persistent constipation. Would recommend use of a bowel regimen, please give the patient 2 enemas today and begin MiraLax 17 g twi ce daily in addition to Colace 200 mg per day please call with any additional questions or concerns, GI to sign off. documented in this encounter Nursing Notes * Bryon Wills LPN - 06/13/2023 1:45 PM EST Pt given d/c instructions. All questions and concerns answered. PIV and tele removed. Pt dressed with assist, ambulated to wheelchair. Pt taken to hospital exit via wheelchair. All belongings sent with pt * Padmini Patel RN - 06/12/2023 8:18 PM EST Pt alert and verbal with needs. Pt states he is having some discomfort in back but is tolerable. Ptrates pain a 2/10. Pt states he just received his baclofen a little while ago and that usually helps. Pt oriented x4. Denies n/v, diarrhea, chest pain. States he had a small incontinent episode todayof bm. Daughter was present at bedside with assessment. +2 pitting edema noted to BLE. Call palomo in reach. No voiced concerns from pt at this time. * Lindsay Lilly RN - 06/11/2023 9:56 PM EST 2129 Pt awake and cooperative with assessment, see flowsheets for complete details. Reported 5/10 back pain. BLE +2 edema. Denied nausea and vomiting. Abd rounded, and tender. Reported loose stools, colace held per pt request. Respirations even and unlabored. NC on at 1.5 L. Call palomo in reach. 2145 Tylenol administered as ordered for pain. * Tete Tavera RN - 06/10/2023 7:02 PM EST Pt arrived to floor via wheelchair. Pt on 2L O2 when arrived. Pt complains of 6/10 back pain that is chronic and did not want anything for it. and daughter at bedside to help answer admission questions. Pt is A&Ox4. Assessment completed. 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 Lungs clear, no complaints of SOB. Skin assessment completed. IV intact. Meds given to pt by Gracie Talbert RN per AUG. Call palomo inreach. Dual Licensed Skin Assessment completed by Jose Tavera RN and Jose Talbert RN. The patient is/has a N/A Skin Breakdown (includes non blanchable erythema): No * Sofy Escobar RN - 06/10/2023 5:11 PM EST 1704 - Received report from Marky MCCOLLUM ED staff by phone. Verbal report given to Tete Rene RN. documented in this encounter ED Notes * Tremayne Leavitt, - 06/10/2023 12:28 PM EST HISTORY OF PRESENT ILLNESS Dedrick Peters is a 88 year old male who presents to the ED for evaluation of Vomiting. The patient was seen at 06/10/23 1212. 88-year-old male with a recent diagnosis cancer and bone metastasis presenting to the emergency department presenting to the emergency department with persistent abdominal pain. He also reports nausea and vomiting. He has had limited stool output. He complains of generalized weakness. The reports it is significantly worsening. She is having difficulty getting him around because of how weak he is. He has not tolerated essentially any oral intake this week and it hasbeen overall poor for weeks. They were told by their doctor to come into the emergency department be cause of his declining status. He denies any urinary symptoms. He reports persistent abdominal painthat is not worse than usual. He has not been able to get comfortable though. He also reports some shortness of breath. 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 The patient's allergies, past history, and medications were reviewed. PHYSICAL EXAM Initial Vitals (see all): BP 166/99 | Pulse 73 | Resp 28 | Temp 98.1 | O2 97 %, Room Air, None | Weight 103.87 kg | Height 172.7 cm | BMI 34.82 kg/m2 Initial Pain Assessment (see all): 0 (no pain)/10 ([facility] Scale 0-10) Physical Exam Vitals and nursing note reviewed. Constitutional: General: He is not in acute distress. Appearance: Normal appearance. He is ill-appearing. HENT: Head: Normocephalic and atraumatic. Nose: Nose normal. Mouth/Throat: Mouth: Mucous membranes are moist. Pharynx: Oropharynx is clear. Eyes: Extraocular Movements: Extraocular movements intact. Pupils: Pupils are equal, round, and reactive to light. Cardiovascular: Rate and Rhythm: Normal rate and regular rhythm. Pulmonary: Effort: Pulmonary effort is normal. No respiratory distress. Breath sounds: Normal breath sounds. No wheezing, rhonchi or rales. Abdominal: General: Abdomen is flat. There is no distension. Palpations: Abdomen is soft. Tenderness: There is abdominal tenderness in the right upper quadrant. There is no guarding. Musculoskeletal: Cervical back: Normal range of motion. Right lower leg: Edema (mild) present. Left lower leg: Edema (mild) present. Skin: General: Skin is warm and dry. Neurological: General: No focal deficit present. Mental Status: He is alert. Psychiatric: Mood and Affect: Mood normal. Behavior: Behavior normal. PROCEDURES AND TREATMENTS ED Orders | ED Results MEDICAL DECISION MAKING Nursing notes and vital signs were reviewed. ED Course as of 06/10/23 1630 Sat Jun 10, 2023 1336 Patient's D-dimer is positive and I will send him for PE scan. He does have significant electrolyte abnormalities with a low phosphorus and very low potassium. Trace elevation in AST compared tolabs obtained prior. Troponin is 30 and I have ordered repeat. BNP is elevated. X-ray is without acute abnormality. [AT] 1630 Patient has been accepted by the hospitalist team for further care. PE study is pending still.[AT] ED Course User Index [AT] Tremayne Leavitt DO Differential Diagnoses Based on my history, physical exam, and evaluation, the differential includes, but is not limited, to the following diagnoses: Weakness, dehydration, electrolyte abnormality, bowel obstruction less likely, metastatic cancer, deconditioning, pancreatitis, cholecystitis, PE, ACS less likely, CHF exace rbation. 88-year-old male presenting with weakness. He does appear ill. He is hypertensive. His other vitalsare reassuring. He does report some shortness of breath and with his cancer I am sending a D-dimer.EKG on my independent review shows an intraventricular conduction delay. There is significant amount of artifact in this EKG therefore hard to determine the rhythm but it does look regular and his rate is 67. I am sending a troponin. Patient's abdominal pain is not worse than it has been therefore I am not going to repeat any scans as he has had multiple scans done recently and is supposed to have a biopsy done next week. Amount and/or Complexity of Data Reviewed Labs: ordered. Radiology: ordered. Risk Prescription drug management. Decision regarding hospitalization. Clinical Impressions Electrolyte abnormality Disposition Admitted. I discussed the management of this patient with the admitting provider and I made a decision to admit the patient. Admission Order Ordered Status . 06/10/23 1630 Admit for Inpatient Services (incl ZPO) ONCE Ordered Tremayne Leavitt * Madeline Klein, RN - 06/10/2023 11:10 AM EST Patient sent by the hem/onc providers for nausea, vomiting, diarrhea and decrease oral intake for the last three weeks. Is due for a biopsy this week and then treatment is to start in approx 2 weeks per family. Called this morning for a new nausea pill as the family states since starting "Reglan" everything has "shut down." Patient denies pain at this time but appears uncomfortable. documented in this encounter Miscellaneous Notes * Ancillary Progress Note - Altagracia Goetz RN - 06/13/2023 1:45 PM EST CARE MANAGEMENT - ADULT DISCHARGE NOTE [facility] [address] Name: Dedrick Peters Location: [facility] [id number] Date: 06/13/2023 Time: 3:43 PM The following coordination of care and discharge plan has been coordinated with the care team, patient, family and/or caregiver according to the patients needs and preferences. Discharge Discharge Was Caregiver/Family/Facility contacted regarding discharge: Yes (06/13/23 1500) Discharge Transportation: Family/Friends drive (06/13/23 1500) Date of scheduled discharge transportation: 06/13/23 (06/13/23 1500) Time of scheduled discharge transportation: 1300 (06/13/23 1500) Patient declined post-hospital transition of care recommendation: N/A (06/13/23 1500) Final Discharge Plan (Complete only at time of Discharge): Home with Services ([facility]) (06/13/23 1500) Home Medical Care - Discharged on 06/13/2023 Admission date: 06/10/2023 - Discharge disposition: Home with Services Service Provider Selected Services Address Phone Fax Patient Preferred Last Updated [facility] [address] [facility], [facility] [address] [phone] -- Altagracia Goetz, RN 06/13/2023 1543 Home Medical Care - Episodes Includes Home Medical Care providers with selected services from the active episodes listed below [facility] Episode start date: 05/10/2023 There are no active outsourced providers for this episode. Non-Specialty Episode start date: 07/19/2019 There are no active outsourced providers for this episode. Narrative: Patient discharged to home with [facility] resumption of services and [facility]. * Ancillary Progress Note - Altagracia Goetz RN - 06/13/2023 9:20 AM EST HOME HEALTH/HOSPICE REFERRAL FORM CARE MANAGEMENT [facility] [address] Referred By: Altagracia Goetz RN Admission Date: 06/10/2023 Discharge Date: 06/13 Discharge Time: 1500 Start Date: Within 48 hours Agency Referred To: [facility] PATIENT INFORMATION: Name: Dedrick Peters [address]: [address] [place] [id number] : 1935 (home) SSN: [id number] County: [place] Caregiver Name: Soledad Relationship: Emergency Contacts: Extended Emergency Contact Information Primary Emergency Contact: FranSoledad J [address]: [address] [place] [id number] [facility] Relation: Spouse Preferred language: Mauritian Telephone Maintainer needed? No Secondary Emergency Contact: Huma Hernández Address: [address] [place] [phone] [place] Mobile Relation: Adult Child Preferred language: Mauritian Telephone Maintainer needed? No MEDICAL INFORMATION: Principal Diagnosis: Electrolyte Abnormality Other Diagnosis: See attached History and Physical Surgery and Dates: Past Surgical History: Procedure Laterality Date ARTHROPLASTY KNEE TOTAL 05/12/2008 ARTHROPLASTY KNEE TOTAL performed by KOSTAS YEBOAH at [facility] ARTHROPLASTY KNEE TOTAL 11/19/2008 ARTHROPLASTY KNEE TOTAL performed by KOSTAS YEBOAH at [facility] ARTHROPLASTY KNEE TOTAL bilateral BRONCHOSCOPY, DIAGNOSTIC 06/22/2011 BRONCHOSCOPY DIAGNOSTIC WITH OR WITHOUT WASHING performed by PAM PRATT at [facility]OSCOPY [facility] COLONOSCOPY W/ BIOPSY (RECTUM) 04/05/2007 hyperplastic polyps--repeat 5 years COLONOSCOPY W/ LESION REMOVAL, SNARE 04/05/2007 path pending COLONOSCOPY W/ SUBMUCOUS INJ 04/05/2007 COLONOSCOPY, DIAGNOSTIC (RECTUM) 12/20/2013 COLONOSCOPY FLEXIBLE PROXIMAL DIAGNOSTIC performed by Arnoldo Oseguera MD at ENDOSCOPY [facility] EGD, FLEXIBLE, DIAGNOSTIC N/A 04/25/2018 hiatal hernia/moderate Schatzki ring, dilated/biopsies show Reveles's esophagitis/recall 1 year/ESOPHAGOGASTRODUODENOSCOPY (EGD), FLEXIBLE, TRANSORAL, DIAGNOSTIC performed by Ulices Chaney MD at OR [facility] EGD, FLEXIBLE, DIAGNOSTIC N/A 05/21/2019 mild schatzki ring, dilated/small hiatal hernia/multiple gastric polyps/biopsies from esophagus andstomach show inflammatory changes/ESOPHAGOGASTRODUODENOSCOPY (EGD), FLEXIBLE, TRANSORAL, DIAGNOSTICperformed by Trina Plaza DO at OR [facility] FLUORO UPPER GI W AIR WO KUB 01/2010 small-mod HH w some reflux INJECT DX/THER SUBSTANCE INTERLAMINAR LUMBAR/SACRAL W IMAGE GUIDE 01/30/2017 INJECTION SPINE LUMBAR OR SACRAL performed by John Ware DO at OR [facility] INJECT DX/THER SUBSTANCE INTERLAMINAR LUMBAR/SACRAL W IMAGE GUIDE 02/16/2017 INJECTION SPINE LUMBAR OR SACRAL performed by John Ware DO at OR [facility] INJECTION OF EYE DRUG 04/01/2010 #1 [...] 01/23/2013 #2 Lucentis 0.5mg OS, Dr. Shafer ([facility]# [id number]) INJECTION OF EYE DRUG 02/27/2013 #3 LUCENTIS 0.5mg OS, Dr. Shafer ([facility]:[id number]) INJECTION OF EYE DRUG 04/10/2013 #4 Lucentis 0.5mg OS, Dr. Shafer INJECTION OF EYE DRUG 05/08/2013 #5 Lucentis 0.5mg OS, [facility]#[id number] INJECTION OF EYE DRUG 06/12/2013 #6 Lucentis 0.5mg OS, Dr. Shafer INJECTION OF EYE DRUG 08/02/2013 #7 Lucentis 0.5mg OS, Dr. Shafer INJECTION OF EYE DRUG 09/17/2013 #8 Lucentis 0.5mg OS, Dr. Shafer INJECTION OF EYE DRUG 11/11/2013 #9 Lucentis 0.5mg OS, Dr. Shafer ([facility]: [id number]) INJECTION OF EYE DRUG 02/07/2014 #10 Lucentis 0.5mg OS, Dr. Shafer ([facility]: [id number]) INJECTION OF EYE DRUG 03/28/2014 #11 Lucentis [...] DRUG Right 06/13/2022 #31 Lucentis 0.5 OD HOLLIS INJECTION OF EYE DRUG Right 07/28/2022 # [...] OD; Dr Shafer INTERSTITIAL RADIATION APPLICATION, COMPLEX MISCELLANEOUS ORDER ([facility] ONLY) 09/07/2010 Consent signed-Avastin OS, Dr. Shafer MISCELLANEOUS ORDER ([facility] ONLY) 09/13/2011-09/12/2012 Avastin consent signed OS;Dr.Cessna FONTANEZANEOUS ORDER ([facility] ONLY) 11/14/2011-11/13/2012 EYLEA CONSENT SIGNED OS; DR HOLLIS URRUTIACELLANEOUS ORDER ([facility] ONLY) 11/23/2012-11/23/2013 Eylea OS Consent signed, MISCELLANEOUS ORDER ([facility] ONLY) 11/23/2012-11/23/2013 Lucentis 0.5mg OS, consent signed, MISCELLANEOUS ORDER ([facility] ONLY) 06/2011 Port placement MISCELLANEOUS ORDER ([facility] ONLY) 11/11/2013-11/11/2014 LUCENTIS 0.5MG CONSENT OS SIGNED;DR HOLLIS FONTANEZANEOUS ORDER ([facility] ONLY) Left 12/23/2014-12/24/2015 LUCENTIS 0.5MG CONSENT SIGNED OS; DR HOLLIS URRUTIACELLANEOUS ORDER ([facility] ONLY) Bilateral 06/27/2018-06/27/2019 LUCENTIS CONSENT [...] (INFORMATION) Right LUCENTIS 0.5MG OD CONSENT DR. MANSFIELD EXP. 08/27/22 OTHER (INFORMATION) LUCENTIS OU CONSENT SIGNED Dr. Mansfield (exp 09-16-23) RADIATION THERAPY MANAGEMENT 12/21/2011 radiation treatments x 17 (chest) Oncologist Dr. Izquierdo REMOVE CATARACT, INSERT LENS PROSTH 01/02/2013 OS-Dr. Velazquez REMOVE CATARACT, INSERT LENS PROSTH 11/07/2013 EXTRACAPSULAR CATARACT REMOVAL WITH INTRAOCULAR LENS performed by Jaya Velazquez MD at OR [facility] RESECTION OF CHEST TUMOR 07/11/2011 EXCISION OF MEDIASTINAL TUMOR performed by PAM KRISHNAMURTHY at OR [facility] STRESS NUCLEAR (PHARM) 03/2008 normal, EF 71% Diet: Adults: As tolerated Allergies: Amoxicillin, Oxycodone, and Percocet [oxycodone-acetaminophen] Isolation Type: None Activity Restrictions: Activity as tolerated Isolation For: None HOME CARE ORDERS: (Discipline and Frequency): SN, PT and OT Medications Dose, Frequency, & Route: Refer to Physician's Discharge Instructions See patient copy of discharge instructions Equipment and Supplies: N/A Ordering Physician and Contact Information: Dr. Biggs Comments: Resumption of all previous services PCP: PCP: [place] [address] [phone] D/C Physician: Dr. Biggs Insurance: See attached facesheet. * Ancillary Progress Note - Altagracia Goetz, RN - 06/13/2023 7:51 AM EST Patient anticipated to discharge to home with resumption of care from [facility]. [phone] Family will transport to home. Will follow until discharge for any additional needs. * Care Plan - Gail Vences RN - 06/12/2023 6:58 PM EST Clinical Goal(s): patient will tolerate meals this shift (06/12/23 0700) Possible barriers to meeting goal(s)/advancing plan of care: npo Stability of the patient: Moderately stable - low risk of patient condition declining or worsening Summary regarding today's goal(s): Met: increased diet and tolerated meals this shift Recommendations: monitor * Ancillary Progress Note - Debbie Watts RDN - 06/12/2023 3:23 PM EST CLINICAL NUTRITION ADULT RISK ASSESSMENT [facility] [address] Name: Dedrick Peters Location: [facility] 4B-4014/D Date: 06/12/2023 Time: 3:23 PM This documentation was completed by talking to the patient and or by chart review the patient was not visually of physically seen. 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 (POA: Yes) Prostate cancer metastatic to bone (HCC) (POA: Yes) Hypokalemia (POA: Yes) SANJEEV (obstructive sleep apnea) (POA: Yes) Chronic respiratory failure with hypoxia (HCC) (POA: Yes) 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 EGD Unable to reach - several attempts.After procedure Progressed to Easy to chew for lunch this day. Consult ordered- will follow up 06/13. Anthropometrics Measurements Admission weight (for dietitians): 213 lb 6.4 oz Height: 172.7 cm (5' 8") (06/10/23 1733) Weight: 96.8 kg (213 lb 6.4 oz) (06/12/23 0600) BMI: 32.55 (06/10/23 1733) Usual Body Weight or EDW for Dialysis Patients: 229 lb 9 oz Diet: Easy to Chew- NPO this am for EGD Previously followed diet: Regular Food Allergies/Intolerances: None Oral Nutrition Supplement (ONS): none Pertinent medications/vitamins/minerals/supplements: Medications reviewed RISK FACTORS: Adult Energy Intake: Less than 75% of estimated energy requirement for greater than 7 days (moderate, acute illness). Interpretation of Weight Change: Greater than 2% weight loss in 1 week (Severe)- likely due to emesis x week Skin: Intact- per skin integumentary - 06/13 NUTRITION RISK CATEGORY: Nutrition Risk Category: High (2 or more factors) weight loss, reduced intake Clinical Nutrition Recommendations: Diet: Continue current nutrition plan NUTRITION INTERVENTION/PLAN: Orders: Oral nutrition supplement added Supplement Shake (1/2 cup provides 200 calories, 6 grams protein, 34 grams carbohydrate) TID Continue current care plan- consult ordered to follow up 06/13 Will follow and adjust nutritional plan as medical condition requires. Please contact for change(s)in patient condition requiring earlier intervention. Debbie Watts RDN,LDN Clinical Dietitian II [facility] * Ancillary Progress Note - Jacklyn Steiner OT - 06/12/2023 10:57 AM EST OT consult noted and attempted, but was not successful at this time as the pt was off the floor at this time. Will re-attempt as allowed by the pt's tolerance/ availability and OT's schedule. * Ancillary Progress Note - Altagracia Goetz RN - 06/12/2023 8:41 AM EST CARE MANAGEMENT - ADULT INITIAL SCREENING [address] [address] Name: Dedrick Peters Location: [facility] 4B-4014/D Date: 06/12/2023 Time: 8:42 AM Discussed patient with the interdisciplinary care team. This Medical Historian performed a chart review and met with patient and spouse at bedside to complete admission screen and assessed needs for transition planning. The health care social worker role and services were explained and emotional support was provided. Chief Complaint: Vomiting Prior Living Arrangements What was your living situation prior to admission/observation?: With Spouse (06/12/23799) Living Quarters: House (06/12/23799) Number of steps to enter living quarters:: 1 (06/12/23799) Do you have serious difficulty walking or climbing stairs? (5 years old or older): No (06/10/231732) History of falling: No (06/11/232129) Prior Level of Functioning Describe the patient's ability prior to admission/observation to perform ADLs: Requires assistance (06/12/23799) Requires assistance with: Dressing;Bathing (06/12/23799) Describe the patient's mobility status prior to admission: Patient requires assistance with ambulation;Patient can sit up in bed;Patient unable to assist with mobility (06/12/23799) Patient uses assistive device: Yes (06/12/23799) If yes, choose:: Walker (06/12/23799) Caregiver Information Patient Contacts Name Relation Home Work Mobile Soledad Peters Spouse [phone] Huma Hernández Adult Child [phone] Risk Stratification/Psychosocial/Care Gaps Risk Stratification Psycho Social / Medical Concerns Identified: Adjustment to illness/injury (06/12/23799) Accessed Neighborly to connect patients to social care resources: No (06/12/23799) OBRA or OPTIONS needed for placement: No (06/12/23799) Readmission Risk Score: 39.68 (06/12/23 08) AM-PAC Score With Stairs : 17 (06/11/232129) Prior to Admission Services Services Prior to Admission AIR ROUTE TRAFFIC CONTROLLER Services (Services received within the last 30 days with exception, Psych within last two years): Durable Medical Equipment;Home Health;[facility] (06/12/23799) AIR ROUTE TRAFFIC CONTROLLER Durable Medical Equipment (DME) in home: Bedside commode;CPAP/BiPAP/Home Vent;Grab bars/Rails;Nebulizer;Oxygen (name) - Comment;Pulse Oximeter;Raised toilet seat;Shower chair/bench;Walker Rolling;Other - Comment (rollator) (06/12/23799) DME Name: [facility] (06/12/23799) [place] Dept[place] of A[place] (PDA) Waiver Program: N/A (06/12/23799) AIR ROUTE TRAFFIC CONTROLLER Transportation (Services received within the last 30 days): Family/Friends Personal Vehicle (06/12/23799) Outpatient Medical Historian: Patient Care Team: Jayleen Montez RN as Help Desk Supervisor (Registered Nurse) Emeli Toledo RN as Help Desk Supervisor ([facility]) Patient/Family Expectations: return to home with [facility] and [facility] Patient is from home with in a one-story home with 1 step to enter. AIR ROUTE TRAFFIC CONTROLLER, patient was requiringhelp with ADLS and was using a rollator and rolling walker for ambulation. helps with dressingand bathing and is his source for transportation. Patient has a cpap and oxygen from [facility]. At last discharge from [facility], patient was enrolled with [facility] and [facility] services. Goal is for patient to return to home with and family support. They are requesting a resumption of care with [facility] and [facility]. Will follow for any additional needs. [facility] 17 For further screening information, please refer to the Care Management flow document. * Care Plan - Rita Siu RN - 06/11/2023 6:30 AM EST Clinical Goal(s): Pt will be without falls this shift. (06/10/232014) Possible barriers to meeting goal(s)/advancing plan of care: Recent weakeness/ambulatory dysfunction related to acute process causing weakness and electrolyte imbalance. Stability of the patient: Moderately stable - low risk of patient condition declining or worsening Summary regarding today's goal(s): Met: Pt has had improvements in electrolyte imbalance according to labs and has been getting up regularly with assistance to go to the BR with supervision. Recommendations: Continue to correct pt's electrolytes gently and assist pt to and from BR. * ED Cloth Finishing Range Operator Note - Madeline Klein RN - 06/10/2023 5:04 PM EST 1704: report called to 4B RN. * Medical Necessity - Gail Winslow RN - 06/10/2023 3:33 PM EST AdmissionCare Guideline: Vomiting - INPT, [...] feculent, bilious, coffee ground, bloody). Additional Information: 88-year-old male presenting with weakness. He does appear ill. He is hypertensive. His other vitals are reassuring. He does report some shortness of breath and with his cancerI am sending a D-dimer. EKG on review shows an intraventricular conduction delay. AdmissionCare documentation entered by: Gail Winslow [facility] [employer], 27th edition, Copyright 2022 [facility] [employer] All Rights Reserved. [id number] Solely for purpose of utilization review and payment; not a diagnostic tool * ED Cloth Finishing Range Operator Note - Crystal Klein RN - 06/10/2023 11:36 AM EST Pt sent in by oncology. Has not been eating or drinking well for the last 3 weeks. reports pt was recently admitted for the same complaints. Has not been able to tolerate PO intake. States everything he tries to eat or drink "comes right back up." denies noting any blood in his emesis or stool. reports pt has been very weak and fatigued recently d/t this. Denies any falls. Did havea PET scan recently that showed he had "multiple spots all over his abdomen." reports he is scheduled or a biopsy this Monday. Has not started treatment for this yet. States he was started aaron nausea medication but this has not provided any relief and just "shut everything down." Pt deniesany chest pain, shortness of breath, fevers or chills. Respirations even and unlabored. Lungs clearbilaterally. Heart sounds are normal. Does feel abdomen is more distended than normal. Diffuse tenderness upon palpation to abdomen. at bedside. Call palomo within reach. documented in this encounter Plan of Treatment Upcoming Encounters Date Type Department Care Team (Late st Contact Info) Description 06/14/2023 11:00 AM EST Home Visit [facility] at [facility] [address] [facility] [address] [facility] [place] [address] Emeli Toledo RN [address] [facility] [place] [address] 06/15/2023 9:00 AM EST Hospital Encounter OR GL, Operating Room, [facility] - 4th Floor [address] [address] [facility], In And Out Surgery [address] [address] 06/15/2023 9:00 AM EST Appointment Radiology, [facility] [address] [place] [address] 06/15/2023 9:00 AM EST - 06/15/2023 10:00 AM EST Surgery OR [facility], Operating Room, [facility] - 4th Floor [address] [place] [address] [facility], In And Out Surgery [address] [place] [address] PRE / POST CARE 06/20/2023 11:00 AM EST Office Visit Family Practice [facility] [address] [place] [address] El Mcgee III, MD [address] [facility] [address] 06/23/2023 9:00 AM EST Home Visit [facility] at [facility] [address] [facility] [place] [address] Amador Moreno PA-C [facility] [place] [address] 06/28/2023 1:00 PM EST Office Visit Palliative Medicine [facility] [address] [place], [place] [address] Valeria Nath MD [address] [place] [address] 07/06/2023 12:40 PM EST Office Visit Podiatry [facility] [address] [facility] [place] [address] Felicita Copeland DPM [address] [facility] [place] [address] 07/27/2023 12:40 PM EST Office Visit Gastroenterology, [place] [address] [facility] [place] [phone] Trina Plaza DO [address] [place] [address] 08/03/2023 1:30 PM EST Office Visit Urology Nora Pugh [address] [place] [address] [place] [address] Ryan Cunningham MD [address] [place] [address] [facility] [place] [address] 09/11/2023 2:00 PM EDT Appointment Radiology, [facility] [address] [place] [phone] 09/11/2023 2:30 PM EDT PulmDiagnostic Pulmonary Function Lab [facility] [address] [facility] [place] [address] [place], [address] [place] [address] 09/11/2023 3:00 PM EDT Office Visit Pulmonary Medicine [facility] [address] [facility] [place] [phone] Saul Moscoso MD [address] [place] [facility] [place] [address] 10/25/2023 2:40 PM EDT Office Visit Family Practice [facility] [address] [place] [address] El Mcgee III, MD [address] [place] [address] 05/02/2024 1:00 PM EST Office Visit Sleep Disorders, [facility] [address] [facility] [place] [address] Alesha John MD [address] [place] [address] Scheduled Procedures Name Priority Associated Diagnoses Date/Ti [...] Screening 02/03/2024 02/02/2023 CKD PHOS USE SMARTSET 02979 06/12/202405/26, 06/11/2023, 06/10/2023, Additional history exists O2 ASSESSMENT COMPLETED IN PAST YEAR FOR COPD 06/12/2024 06/13/2023 CKD HGB USE SMARTSET 60715 06/13/202406/13, 06/13/2023, 06/12/2023, Additional history exists Pneumococcal Vaccine: 65+ Years Completed 09/22/2015, 08/21/2001 VITAMIN D LEVEL ONCE IN A LIFETIME-USE SMARTSET# 93500 Completed 10/26/2022, 10/11/2021, 01/01/2019, Additional history exists Influenza Vaccine (FLU shot) Completed , 03/31/2022, 03/23/2021, Additional history exists GARDASIL-HPV IMMUNIZATION SERIES Aged Out No longer eligible based on patient's age to complete this topic MENINGOCOCCAL (MENACTRA/MENVEO) Aged Out No longer eligible based on patient's age to complete this topic documented as of this encounter Medical Devices Implanted Type Area Renewable Energy Trader Device Identifier Shelf Expiration Date Model / Serial / Lot Femur Nexgn E Right - [id number] Implanted:Qty: 1 on 05/12/2008 at OR [facility] Right: Knee [employer] 02/24/2018 [id number] / / [id number] Femur Nexgn E Left - [id number] Implanted:Qty: 1 on 11/19/2008 at OR [facility] Left: Knee [employer] [id number] / / [id number] Sut Steel 6 M654g - [id number] Implanted:Qty: 6 on 07/11/2011 at OR [facility] N/A: Chest DO NOT USE 01/09/2016 / / [id number] [employer]re[employer] Ao Micro Incision Lens [id number] Implanted:Qty: 1 on 11/07/2013 at OR [facility] Right: Eye 06/25/2016 [id number] / [id number] / [id number] documented as of this encounter Procedures Procedure Name Priority Date/Time Associated Diagnosis Comments DIFFERENTIAL, AUTOMATED Routine 06/13/2023 5:31 AM EST BASIC METABOLIC PANEL Routine 06/13/2023 5:31 AM EST CBC Routine 06/13/2023 5:31 AM EST CBC Routine 06/13/2023 5:31 AM EST MAGNESIUM Routine 06/13/2023 5:31 AM EST BASIC METABOLIC PANEL Routine 06/12/2023 6:10 AM EST PHOSPHORUS Routine 06/12/2023 6:10 AM EST CBC Routine 06/12/2023 6:10 AM EST MAGNESIUM Routine 06/12/2023 6:10 AM EST HEPATIC FUNCTION PANEL Routine 5:07 AM EST BASIC METABOLIC PANEL Routine 06/11/2023 5:07 AM EST PHOSPHORUS Routine 06/11/2023 5:07 AM EST CBC Routine 06/11/2023 5:07 AM EST MAGNESIUM Routine 06/11/2023 5:07 AM EST BASIC METABOLIC PANEL Routine 06/10/2023 10:56 PM EST PHOSPHORUS Add-on 06/10/2023 10:56 PM EST MAGNESIUM Add-on 06/10/2023 10:[address] ABD/PELVIS WO IV/ORAL CONTRAST STAT 06/10/2023 5:12 PM EST CULTURE, URINE, QUANTITATIVE STAT 06/10/2023 4:58 PM EST MICROSCOPIC EXAM, URINE STAT 06/10/2023 3:42 PM EST URINALYSIS, REFLEX TO MICROSCOPIC STAT 06/10/2023 3:[address] PULMONARY EMBOLUS W CONTRAST STAT 06/10/2023 3:09 PM EST TROPONIN T, HIGH SENSITIVITY STAT 06/10/2023 1:42 PM EST XR CHEST 2 VIEWS STAT 06/10/2023 1:12 PM EST RESPIRATORY PATHOGEN PANEL, PCR STAT 06/10/2023 12:50 PM EST EXTRA LIGHT BLUE TOP STAT 06/10/2023 12:04 PM EST DIFFERENTIAL, AUTOMATED STAT 06/10/2023 12:04 PM EST TROPONIN T, HIGH SENSITIVITY Add-on 06/10/2023 12:04 PM EST BNP (NT-PROBNP) Add-on 06/10/2023 12:04 PM EST COMPREHENSIVE METABOLIC PANEL STAT 06/10/2023 12:04 PM EST D-DIMER Add-on 06/10/2023 12:04 PM EST CBC STAT 06/10/2023 12:04 PM EST PHOSPHORUS Add-on 06/10/2023 12:04 PM EST LIPASE STAT 06/10/2023 12:04 PM EST LACTATE Routine 06/10/2023 12:04 PM EST CBC STAT 06/10/2023 12:04 PM EST MAGNESIUM Add-on 06/10/2023 12:04 PM EST HC ECG TRACING ONLY STAT 06/10/2023 1 1:29 AM EST Vomiting documented in this encounter Results * (ABNORMAL) DIFFERENTIAL, AUTOMATED (06/13/2023 5:31 AM EST) WBC 7.89 4.00 - 10.80 K/uL 06/13/2023 6:26 AM EST LABORATORY [facility] Neutrophils % 73.9 40.0 - 75.0 % 06/13/2023 6:26 AM EST LAB[facility]ATORY [facility] Lymphocytes % 10.6(L) 18.0 - 42.0 % 06/13/2023 6:26 AM EST LAB[facility]ATORY [facility] Monocytes % 13.2(H) 1.0 - 11.0 % 06/13/2023 6:26 AM EST LAB[facility]ATORY [facility] Eosinophils % 1.5 0.0 - 6.0 % 06/13/2023 6:26 AM EST LAB[facility] Basophils % 0.3 0.0 - 2.0 % 06/13/2023 6:26 AM EST LAB[facility]ATORY [facility] Immature Granulocytes % 0.5 0.0 - 2.0 % 06/13/2023 6:26 AM EST LABORATORY GL Absolute Neutrophils 5.83 1.80 - 7.70 K/uL 06/13/2023 6:26 AM EST LABORATORY GL Absolute Lymphocytes 0.84(L) 1.00 - 4.80 K/ul 06/13/2023 6:26 AM EST LABORATORY GL Absolute Monocytes 1.04 0.00 - 1.10 K/uL 06/13/2023 6:26 AM EST LABORATORY [facility] Absolute Eosinophils 0.12 0.00 - 0.70 K/uL 06/13/2023 6:26 AM EST LABORATORY [facility] Absolute Basophils 0.02 0.00 - 0.20 K/uL 06/13/2023 6:26 AM EST LABORATORY GL Absolute Immature Granulocytes 0.04 0.00 - 0.20 K/uL 06/13/2023 6:26 AM EST LABORATORY GL Blood Venous blood specimen / Unknown Venipuncture / Unknown 06/13/2023 5:31 AM EST 06/13/2023 6:08 AM EST Olamide Lloyd MD LAB BLOOD ORDERABLES Performing Organization Address City/State/[facility] Co de Phone Number LABORATORY [address] [address] * (ABNORMAL) CBC (06/13/2023 5:31 AM EST) WBC 7.89 4.00 - 10.80 K/uL 06/13/2023 6:26 AM EST LABORATORY GL RBC 4.37 4.50 - 5.25 M/uL 06/13/2023 6:26 AM EST LABORATORY GL HGB 13.7(L) 14.0 - 16.8 g/dL 06/13/2023 6:26 AM EST LABORATORY GL HCT 40.0 40.0 - 48.4 % 06/13/2023 6:26 AM EST LABORATORY GL MCV 91.5 82.0 - 99.5 fL 06/13/2023 6:26 AM EST LABORATORY GL MCH 31.4 27.0 - 34.0 pg 06/13/2023 6:26 AM EST LABORATORY GL[facility] MCHC 34.3 32.0 - 36.0 g/dL 06/13/2023 6:26 AM EST LABORATORY GL RDW 13.4 11.5 - 15.5 % 06/13/2023 6:26 AM EST LABORATORY GL PLT 150 140 - 400 K/uL 06/13/2023 6:26 AM EST LABORATORY GL MPV 11.8 6.6 - 11.1 fL 06/13/2023 6:26 AM EST LABORATORY GL nRBCs 0 <=0 /100 WBCs 06/13/2023 6:26 AM EST LABORATORY GL Blood Venous blood specimen / Unknown Venipuncture / Unknown 06/13/2023 5:31 AM EST 06/13/2023 6:08 AM EST Olamide Lloyd MD LAB BLOOD ORDERABLES Performing Organization Address City/State/[facility] Co de Phone Number LABORATORY [address] [address] * (ABNORMAL) BASIC METABOLIC PANEL (06/13/2023 5:31 AM EST) BUN 13 6 - 20 mg/dL 06/13/2023 6:42 AM EST LABORATORY GL Creatinine 0.9 0.6 - 1.2 mg/dL 06/13/2023 6:42 AM EST LABORATORY [facility] Estimated Glomerular Filtration Rate 84 >=60 mL/min 06/13/2023 6:42 AM EST LAB[facility]ATORY [facility] Comment:eGFR is calculated b ased on the CKD-EPI 2020 equation Sodium 140 135 - 146 mmol/L 06/13/2023 6:42 AM EST LAB[facility]ATORY [facility] Potassium 3.2(L) 3.5 - 5.1 mmol/L 06/13/2023 6:42 AM EST LAB[facility]ATORY [facility] Chloride 102 98 - 107 mmol/L 06/13/2023 6:42 AM EST LAB[facility]ATORY [facility] CO2 30 22 - 32 mmol/L 06/13/2023 6:42 AM EST LAB[facility]ATORY [facility] Anion Gap 8 7 - 15 mmol/L 06/13/2023 6:42 AM EST LAB[facility]ATORY [facility] Glucose 100 70 - 120 mg/dL 06/13/2023 6:42 AM EST LABORATORY [facility] Calcium 8.4 8.4 - 10.2 mg/dL 06/13/2023 6:42 AM EST LABORATORY GL Blood Venous blood specimen / Unknown Venipuncture / Unknown 06/13/2023 5:31 AM EST 06/13/2023 6:07 AM EST Olamide Lloyd MD LAB BLOOD ORDERABLES Performing Organization Address City/[facility]/ZIP Co de Phone Number LABORATORY [address] [address] * MAGNESIUM (06/13/2023 5:31 AM EST) Magnesium 2.2 1.5 - 2.6 mg/dL 06/13/2023 6:42 AM EST LABORATORY [facility] Blood Venous blood specimen / Unknown Venipuncture / Unknown 06/13/2023 5:31 AM EST 06/13/2023 6:07 AM EST Olamide Lloyd MD LAB BLOOD ORDERABLES Performing Organization Address City/[facility]/ZIP Co de Phone Number LABORATORY [address] [phone] * PHOSPHORUS (06/12/2023 6:10 AM EST) Phosphorus 3.1 2.5 - 4.8 mg/dL 06/12/2023 7:01 AM EST LABORATORY [facility] Blood Venous blood specimen / Unknown Venipuncture / Unknown 06/12/2023 6:10 AM EST 06/12/2023 6:36 AM EST Margarito Biggs MD LAB BLOOD ORDERABLE S Performing Organization Address City/[facility] Co de Phone Number LABORATORY [address] [address] * MAGNESIUM (06/12/2023 6:10 AM EST) Magnesium 2.2 1.5 - 2.6 mg/dL 06/12/2023 7:01 AM EST LABORATORY [facility] Blood Venous blood specimen / Unknown Venipuncture / Unknown 06/12/2023 6:10 AM EST 06/12/2023 6:36 AM EST Margarito Biggs MD LAB BLOOD ORDERABLE S LABORATORY [address] [address] * (ABNORMAL) BASIC METABOLIC PANEL (06/12/2023 6:10 AM EST) BUN 10 6 - 20 mg/dL 06/12/2023 7:01 AM EST LABORATORY GL Creatinine 0.8 0.6 - 1.2 mg/dL 06/12/2023 7:01 AM EST LABORATORY [facility] Estimated Glomerular Filtration Rate 85 >=60 mL/min 06/12/2023 7:01 AM EST LABORATORY [facility] Comment:eGFR is calculated b ased on the CKD-EPI 2020 equation Sodium 141 135 - 146 mmol/L 06/12/2023 7:01 AM EST LABORATORY [facility] Potassium 3.4(L) 3.5 - 5.1 mmol/L 06/12/2023 7:01 AM EST LABORATORY [facility] Chloride 103 98 - 107 mmol/L 06/12/2023 7:01 AM EST LABORATORY [facility] CO2 29 22 - 32 mmol/L 06/12/2023 7:01 AM EST LABORATORY [facility] Anion Gap 9 7 - 15 mmol/L 06/12/2023 7:01 AM EST LABORATORY [facility] Glucose 101 70 - 120 mg/dL 06/12/2023 7:01 AM EST LABORATORY [facility] Calcium 8.2(L) 8.4 - 10.2 mg/dL 06/12/2023 7:01 AM EST LABORATORY [facility] Blood Venous blood specimen / Unknown Venipuncture / Unknown 06/12/2023 6:10 AM EST 06/12/2023 6:36 AM EST Margarito Biggs MD LAB BLOOD ORDERABLE S Performing Organization Address City/[facility]/ZIP Co de Phone Number LABORATORY [address] [address] * (ABNORMAL) CBC (06/12/2023 6:10 AM EST) WBC 7.06 4.00 - 10.80 K/uL 06/12/2023 6:43 AM EST LABORATORY GL RBC 4.46 4.50 - 5.25 M/uL 06/12/2023 6:43 AM EST LABORATORY GL HGB 13.2(L) 14.0 - 16.8 g/dL 06/12/2023 6:43 AM EST LABORATORY [facility] HCT 40.7 40.0 - 48.4 % 06/12/2023 6:43 AM EST LABORATORY [facility] MCV 91.3 82.0 - 99.5 fL 06/12/2023 6:43 AM EST LABORATORY GL MCH 29.6 27.0 - 34.0 pg 06/12/2023 6:43 AM EST LABORATORY GL MCHC 32.4 32.0 - 36.0 g/dL 06/12/2023 6:43 AM EST LABORATORY GL RDW 13.6 11.5 - 15.5 % 06/12/2023 6:43 AM EST LABORATORY GL PLT 141 140 - 400 K/uL 06/12/2023 6:43 AM EST LABORATORY GL MPV 11.4 6.6 - 11.1 fL 06/12/2023 6:43 AM EST LABORATORY GL nRBCs 0 <=0 /100 WBCs 06/12/2023 6:43 AM EST LABORATORY GL Blood Venous blood specimen / Unknown Venipuncture / Unknown 06/12/2023 6:10 AM EST 06/12/2023 6:35 AM EST Margarito Biggs MD LAB BLOOD ORDERABLE S LABORATORY [facility] [address] [place] [address] * (ABNORMAL) CBC (06/11/2023 5:07 AM EST) WBC 9.39 4.00 - 10.80 K/uL 06/11/2023 5:38 AM EST LABORATORY [facility] RBC 4.42 4.50 - 5.25 M/uL 06/11/2023 5:38 AM EST LABORATORY GL HGB 13.3(L) 14.0 - 16.8 g/dL 06/11/2023 5:38 AM EST LABORATORY [facility] HCT 39.7(L) 40.0 - 48.4 % 06/11/2023 5:38 AM EST LABORATORY [facility] MCV 89.8 82.0 - 99.5 fL 06/11/2023 5:38 AM EST LABORATORY [facility] MCH 30.1 27.0 - 34.0 pg 06/11/2023 5:38 AM EST LABORATORY GL MCHC 33.5 32.0 - 36.0 g/dL 06/11/2023 5:38 AM EST LABORATORY GL RDW 13.5 11.5 - 15.5 % 06/11/2023 5:38 AM EST LABORATORY GL PLT 155 140 - 400 K/uL 06/11/2023 5:38 AM EST LABORATORY GL MPV 11.1 6.6 - 11.1 fL 06/11/2023 5:38 AM EST LABORATORY GL nRBCs 0 <=0 /100 WBCs 06/11/2023 5:38 AM EST LABORATORY GL Blood Venous blood specimen / Unknown Venipuncture / Unknown 06/11/2023 5:07 AM EST 06/11/2023 5:32 AM EST Luciana Greenberg PA-C LAB BLOOD ORDERABLES LABORATORY [facility] [address] [place] [address] * (ABNORMAL) BASIC METABOLIC PANEL (06/11/2023 5:07 AM EST) BUN 10 6 - 20 mg/dL 06/11/2023 6:14 AM EST LABORATORY [facility] Creatinine 0.8 0.6 - 1.2 mg/dL 06/11/2023 6:14 AM EST LABORATORY [facility] Estimated Glomerular Filtration Rate 87 >=60 mL/min 06/11/2023 6:14 AM EST LABORATORY [facility] Comment:eGFR is calculated b ased on the CKD-EPI 2020 equation Sodium 141 135 - 146 mmol/L 06/11/2023 6:14 AM EST LABORATORY [facility] Potassium 3.3(L) 3.5 - 5.1 mmol/L 06/11/2023 6:14 AM EST LABORATORY [facility] Chloride 103 98 - 107 mmol/L 06/11/2023 6:14 AM EST LABORATORY [facility] CO2 28 22 - 32 mmol/L 06/11/2023 6:14 AM EST LABORATORY [facility] Anion Gap 10 7 - 15 mmol/L 06/11/2023 6:14 AM EST LABORATORY [facility] Glucose 92 70 - 120 mg/dL 06/11/2023 6:14 AM EST LABORATORY [facility] Calcium 7.8(L) 8.4 - 10.2 mg/dL 06/11/2023 6:14 AM EST LABORATORY [facility] Blood Venous blood specimen / Unknown Venipuncture / Unknown 06/11/2023 5:07 AM EST 06/11/2023 5:31 AM EST Luciana Greenberg PA-C LAB BLOOD ORDERABLES LABORATORY [address] [address] * (ABNORMAL) HEPATIC FUNCTION PANEL (06/11/2023 5:07 AM EST) Pathologist [facility] Albumin 3.0(L) 3.8 - 5.0 g/dL 06/11/2023 6:14 AM EST LABORATORY [facility] AST 52(H) 10 - 50 U/L 06/11/2023 6:14 AM EST LABORATORY [facility] Alkaline Phosphatase 142(H) 35 - 130 U/L 06/11/2023 6:14 AM EST LABORATORY [facility] ALT 44 10 - 50 U/L 06/11/2023 6:14 AM EST LABORATORY [facility] Bilirubin, Total 0.9 <=1.2 mg/dL 06/11/2023 6:14 AM EST LABORATORY [facility] Bilirubin, Direct 0.4(H) 0.0 - 0.3 mg/dL 06/11/2023 6:14 AM EST LABORATORY [facility] Protein 5.7(L) 6.0 - 8.3 g/dL 06/11/2023 6:14 AM EST LABORATORY [facility] Blood Venous blood specimen / Unknown Venipuncture / Unknown 06/11/2023 5:07 AM EST 06/11/2023 5:31 AM EST Luciana Felix Dionicio MENDEZShaRyan LAB BLOOD ORDERABLES Performing Organization Address City/[facility]/ZIP Co de Phone Number LABORATORY [address] [phone] * PHOSPHORUS (06/11/2023 5:07 AM EST) Phosphorus 2.9 2.5 - 4.8 mg/dL 06/11/2023 6:14 AM EST LABORATORY [facility] Blood Venous blood specimen / Unknown Venipuncture / Unknown 06/11/2023 5:07 AM EST 06/11/2023 5:31 AM EST Luciana Felix Dionicio MENDEZShaRyan LAB BLOOD ORDERABLES Performing Organization Address [facility] de Phone Number LABORATORY [address] [id number] * MAGNESIUM (06/11/2023 5:07 AM EST) Magnesium 2.2 1.5 - 2.6 mg/dL 06/11/2023 6:14 AM EST LABORATORY [facility] Blood Venous blood specimen / Unknown Venipuncture / Unknown 06/11/2023 5:07 AM EST 06/11/2023 5:31 AM EST Luciana Felix Dionicio MENDEZShaRyan LAB BLOOD ORDERABLES LABORATORY [address] [address] * (ABNORMAL) PHOSPHORUS (06/10/2023 10:56 PM EST) Phosphorus 2.4(L) 2.5 - 4.8 mg/dL 06/11/2023 8:54 AM EST LABORATORY [facility] Blood Venous blood specimen / Unknown Venipuncture / Unknown 06/10/2023 10:56 PM EST 06/10/2023 10:59 PM EST Margarito Biggs MD LAB BLOOD ORDERABLE S LABORATORY [address] [address] * MAGNESIUM (06/10/2023 10:56 PM EST) Magnesium 2.1 1.5 - 2.6 mg/dL 06/11/2023 8:54 AM EST LABORATORY [facility] Blood Venous blood specimen / Unknown Venipuncture / Unknown 06/10/2023 10:56 PM EST 06/10/2023 10:59 PM EST Margarito Biggs MD LAB BLOOD ORDERABLE S Performing Organization Address City/[facility]/ZIP Co de Phone Number LABORATORY [address] [phone] * (ABNORMAL) BASIC METABOLIC PANEL (06/10/2023 10:56 PM EST) BUN 12 6 - 20 mg/dL 06/10/2023 11:37 PM EST LABORATORY [facility] Creatinine 0.8 0.6 - 1.2 mg/dL 06/10/2023 11:37 PM EST LABORATORY [facility] Estimated Glomerular Filtration Rate 87 >=60 mL/min 06/10/2023 11:37 PM EST LABORATORY [facility] Comment:eGFR is calculated b ased on the CKD-EPI 2020 equation Sodium 138 135 - 146 mmol/L 06/10/2023 11:37 PM EST LABORATORY [facility] Potassium 3.6 3.5 - 5.1 mmol/L 06/10/2023 11:37 PM EST LABORATORY [facility] Chloride 101 98 - 107 mmol/L 06/10/2023 11:37 PM EST LABORATORY [facility] CO2 27 22 - 32 mmol/L 06/10/2023 11:37 PM EST LABORATORY [facility] Anion Gap 10 7 - 15 mmol/L 06/10/2023 11:37 PM EST LABORATORY [facility] Glucose 106 70 - 120 mg/dL 06/10/2023 11:37 PM EST LABORATORY [facility] Calcium 7.9(L) 8.4 - 10.2 mg/dL 06/10/2023 11:37 PM EST LABORATORY [facility] Blood Venous blood specimen / Unknown Venipuncture / Unknown 06/10/2023 10:56 PM EST 06/10/2023 10:59 PM EST Luciana Elvira Greenberg PA-C LAB BLOOD ORDERABLES LABORATORY [facility] [address] [place] [address] * CT ABD/PELVIS WO IV/ORAL CONTRAST (06/10/2023 5:12 PM EST) Anatomical Region Laterality Modality Body, Abdomen, Pelvis Computed T omography 06/10/2023 5:06 PM EST Impressions 06/10/2023 6:38 PM EST IMPRESSION: 1. No evidence of bowel obstruction. 2. New inflammatory changes surrounding the anterior portion of the distal rectum, immediately superior to the area of the prostate, etiology unknown; see discussion above. Likely acute focal colitis. 3. Evidence of liver lesions and likely bony metastasis as described above, not significantly changed. 4. Multiple other abnormalities as described above. THIS DOCUMENT HAS BEEN ELECTRONICALLY SIGNED BY TERRELL THOMPSON MD Narrative 06/10/2023 6:38 PM EST PROCEDURE INFORMATION: Exam: CT Abdomen And Pelvis Without Contrast Exam date and time: 06/10/2023 5:06 PM Age: 88 years old Sex (administrative): male Clinical indication: Nausea; Additional info: N/v cant keep anything down, please evaluate for obstruction. Other procedure information: History of Hodgkin's lymphoma and prostate cancer. Previously shown liver metastasis and hypermetabolic osseous metastasis in T11, L2 and the left pelvis. TECHNIQUE: Imaging protocol: Computed tomography of the abdomen and pelvis without contrast. Total images: 1115. Radiation optimization: All CT scans at this facility use at least one of these dose optimization techniques: automated exposure control; mA and/or kV adjustment per patient size (includes targeted exams where dose is matched to clinical indication); or iterative reconstruction. REPORTING DATA: Count of CT and Cardiac NM exams in prior 12 months: This patient has received 4 known CTs and 0 known cardiac nuclear medicine studies in the 12 months prior to the current study. COMPARISON: [facility]. [facility] 06/02/2023 11:40 AM. 2. CTA the of the chest of 06/10/2023. 3. CT scan of abdomen and pelvis of 05/21/2023. FINDINGS: Lungs: Chronic fibrotic changes in the medial portion of the visualized right lower lung. Platelike atelectasis in the left lower lung. Heart: Cardiomegaly. Heavy calcification of the inferolateral aspect of the mitral valve ring. Minimal calcific coronary artery disease. Normal pericardium. Diaphragm: Moderate-sized hiatal hernia. In3 Relative elevation of the left hemidiaphragm. Liver: Diffuse fatty infiltration of the liver. Multiple hypodense liver lesions consistent with metastasis as previously noted. No intrahepatic biliary dilation. Normal-sized liver. Gallbladder and bile ducts: Mildly distended, similar to was seen on prior studies. No calcified stones. No ductal dilation. Pancreas: Normal. No ductal dilation. Spleen: Spleen size at upper limits of normal. Subcapsular calcifications along the lateral anterior portion of the spleen, unchanged . Adrenal glands: Normal. No mass. Kidneys and ureters: Minimal bilateral perinephric stranding. No hydronephrosis. No renal masses. Stomach and bowel: Moderate amount of stool is noted throughout the transverse colon. Descending colon is partially collapsed. Inflammatory changes surrounding the anterior portion of the distal rectum immediately superior to the area of prostate (image 77, series 2); this was not present on the prior CT scan of 05/21/2023; question acute inflammatory change possibly related to epiploic appendagitis , and less likely diverticulitis, or other etiology. Small rectosigmoid diverticuli without any other evidence of significant associated diverticulitis. The stomach and duodenum appear within normal limits. The remaining portion of the colon and small bowel appear within normal limits. No evidence of bowel obstruction. Appendix: Focal densities are noted in the proximal appendix and also in the adjacent portion of the cecum; question dense food particles or other contrast and less likely appendicolith. There is no surrounding inflammatory change. This was not seen on the prior study. The appendix is partially air-filled and otherwise appears within normal limits.. Intraperitoneal space: There is unchanged soft tissue mass in the midline anterior upper abdomen, possibly representing a peritoneal mass, measuring 2.9 x 2.8 x 2.3 cm (image 29, series 2; and sagittal image 109, series 602). This is an epigastric region mass concerning for possible metastasis. There is also large periportal lymph node between the caudate lobe and the head of the pancreas, unchanged prior studies (image 30, series 2). A new cluster of small calcified structures is noted immediately posterior to the distal transverse colon in the left anterior abdomen (image 45, series 2; question diverticuli versus less likely calcified lymph nodes versus other etiology. Not clearly appreciated on the prior studies. Vasculature: There is mild diffuse calcific atherosclerosis within the distal abdominal aorta and iliac arteries. No abdominal aortic aneurysm. Pelvic phleboliths. Lymph nodes: Unremarkable. No enlarged lymph nodes. Urinary bladder: Normal appearance of the bladder. Mild protrusion of the prostate into the lower portion of the bladder. Reproductive: . The prostate measures 4.7 x 3.6 x 3.7 cm corresponding to a volume of 33 cc, mildly increased in size. Bones/joints: Moderately severity degenerative changes in the lumbar spine with multiple levels with vacuum disc phenomena, mild sclerosis and disc space narrowing. Mild compression deformity of T11, with sclerotic changes, as previously noted. Sternotomy wires. Mild S-shaped thoracolumbar scoliosis. Focal hypodense lesion, possibly lytic lesion, in the right lateral aspect of the L2 vertebra. No evidence of other sclerotic bony lesions. The abnormality noted in the left superior acetabulum on the recent PET-CT scan is not appreciated on today's CT scan. Soft tissues: Small fat containing umbilical hernia. Small bilateral fat containing inguinal hernias. Procedure Note Terrell Thompson MD - 06/10/2023 PROCEDURE INFORMATION: Exam: CT Abdomen And Pelvis Without Contrast Exam date and time: 06/10/2023 5:06 PM Age: 88 years old Sex (administrative): male Clinical indication: Nausea; Additional info: N/v cant keep anything down, please evaluate for obstruction. Other procedure information: History of Hodgkin's lymphoma and prostatecancer. Previously shown liver metastasis and hypermetabolic osseous metastasis inT11, L2 and the left pelvis. TECHNIQUE: Imaging protocol: Computed tomography of the abdomen and pelvis without contrast. Total images: 1115. Radiation optimization: All CT scans at this facility use at least one ofthese dose optimization techniques: automated exposure control; mA and/or kV adjustment per patient size (includes targeted exams where dose is matchedto clinical indication); or iterative reconstruction. REPORTING DATA: Count of CT and Cardiac NM exams in prior 12 months: This patient hasreceived 4 known CTs and 0 known cardiac nuclear medicine studies in the 12 monthsprior to the current study. COMPARISON: 1. CT PET^[facility] (Adult) 06/02/2023 11:40 AM. 2. CTA the of the chest of 06/10/2023. 3. CT scan of abdomen and pelvis of 05/21/2023. FINDINGS: Lungs: Chronic fibrotic changes in the medial portion of the visualizedright lower lung. Platelike atelectasis in the left lower lung. Heart: Cardiomegaly. Heavy calcification of the inferolateral aspect ofthe mitral valve ring. Minimal calcific coronary artery disease. Normal pericardium. Diaphragm: Moderate-sized hiatal hernia. In3 Relative elevation of theleft hemidiaphragm. Liver: Diffuse fatty infiltration of the liver. Multiple hypodense liver lesions consistent with metastasis as previously noted. No intrahepatic biliary dilation. Normal-sized liver. Gallbladder and bile ducts: Mildly distended, similar to was seen onprior studies. No calcified stones. No ductal dilation. Pancreas: Normal. No ductal dilation. Spleen: Spleen size at upper limits of normal. Subcapsular calcificationsalong the lateral anterior portion of the spleen, unchanged . Adrenal glands: Normal. No mass. Kidneys and ureters: Minimal bilateral perinephric stranding. No hydronephrosis. No renal masses. Stomach and bowel: Moderate amount of stool is noted throughout the transverse colon.Descending colon is partially collapsed. Inflammatory changes surrounding the anterior portion of the distal rectum immediately superior to the area of prostate (image 77, series 2); thiswas not present on the prior CT scan of 05/21/2023; question acute inflammatorychange possibly related to epiploic appendagitis , and less likelydiverticulitis, or other etiology. Small rectosigmoid diverticuli without any other evidence of significant associated diverticulitis. The stomach and duodenum appear within normal limits. The remaining portion of the colon and small bowel appear within normallimits. No evidence of bowel obstruction. Appendix: Focal densities are noted in the proximal appendix and also inthe adjacent portion of the cecum; question dense food particles or othercontrast and less likely appendicolith. There is no surrounding inflammatorychange. This was not seen on the prior study. The appendix is partiallyair-filled and otherwise appears within normal limits.. Intraperitoneal space: There is unchanged soft tissue mass in the midline anterior upper abdomen, possibly representing a peritoneal mass, measuring2.9 x 2.8 x 2.3 cm (image 29, series 2; and sagittal image 109, series 602).This is an epigastric region mass concerning for possible metastasis. There is also large periportal lymph node between the caudate lobe and thehead of the pancreas, unchanged prior studies (image 30, series 2). A new cluster of small calcified structures is noted immediately posteriorto the distal transverse colon in the left anterior abdomen (image 45, series2; question diverticuli versus less likely calcified lymph nodes versus other etiology. Not clearly appreciated on the prior studies. Vasculature: There is mild diffuse calcific atherosclerosis within thedistal abdominal aorta and iliac arteries. No abdominal aortic aneurysm. Pelvic phleboliths. Lymph nodes: Unremarkable. No enlarged lymph nodes. Urinary bladder: Normal appearance of the bladder. Mild protrusion of the prostate into the lower portion of the bladder. Reproductive: . The prostate measures 4.7 x 3.6 x 3.7 cm corresponding toa volume of 33 cc, mildly increased in size. Bones/joints: Moderately severity degenerative changes in the lumbar spinewith multiple levels with vacuum disc phenomena, mild sclerosis and disc space narrowing. Mild compression deformity of T11, with sclerotic changes, as previouslynoted. Sternotomy wires. Mild S-shaped thoracolumbar scoliosis. Focal hypodense lesion, possibly lytic lesion, in the right lateral aspectof the L2 vertebra. No evidence of other sclerotic bony lesions. The abnormality noted in the left superior acetabulum on the recent PET-CTscan is not appreciated on today's CT scan. Soft tissues: Small fat containing umbilical hernia. Small bilateral fat containing inguinal hernias. IMPRESSION IMPRESSION: 1. No evidence of bowel obstruction. 2. New inflammatory changes surrounding the anterior portion of thedistal rectum, immediately superior to the area of the prostate, etiologyunknown; see discussion above. Likely acute focal colitis. 3. Evidence of liver lesions and likely bony metastasis as describedabove, not significantly changed. 4. Multiple other abnormalities as described above. THIS DOCUMENT HAS BEEN ELECTRONICALLY SIGNED BY TERRELL THOMPSON MD Luciana Greenberg PA-C RAD CT * (ABNORMAL) CULTURE, URINE, QUANTITATIVE (06/10/2023 4:58 PM EST) Culture Growth >100,000 colonies/mL Enterococcus species(A) MICROBROTH DILUTIONS 06/13/2023 10:02 AM EST LABORATORY [facility] Urine Urine specimen obtained by clean catch procedure / Unknown Non-blood Collection / Unknown 06/10/2023 4:58 PM EST 06/10/2023 5:00 PM EST Narrative Organism Antibiotic Method Susceptibility Enterococcus species Ampicillin MICROBROTH DILUTIONS <=2: Susceptible Enterococcus species Nitrofurantoin MICROBROTH DILUTIO NS <=16: Susceptible Enterococcus species Tetracycline MICROBROTH DILUTIONS >=16: Resistant Enterococcus species Vancomycin MICROBROTH DILUTIONS <=0.5: Susceptible Luciana Greenberg PA-C LAB MICRO - GENERAL ORDERABLES Performing Organization Address City/[facility]/ZIP Co de Phone Number LABORATORY [facility] [address] [place] [address] * (ABNORMAL) MICROSCOPIC EXAM, URINE (06/10/2023 3:42 PM EST) RBC, Urine 0-2 0 - 2 /HPF 06/10/2023 4:03 PM EST LABORATORY [facility] WBC, Urine 50+(A) 0 - 2 /HPF 06/10/2023 4:03 PM EST LABORATORY [facility] Bacteria, Urine >200(A) 0 - 25 /HPF 06/10/2023 4:03 PM EST LABORATORY [facility] Mucus, Urine Many(A) None /HPF 06/10/2023 4:03 PM EST LABORATORY [facility] Yeast, Urine Present(A) None /HPF 06/10/2023 4:03 PM EST LABORATORY GL Urine Urine specimen obtained by clean catch procedure / Unknown Non-blood Collection / Unknown 06/10/2023 3:42 PM EST 06/10/2023 3:51 PM EST Tremayne Leavitt DO LAB URINE ORDERABLE S LABORATORY [facility] [address] [place] [address] * (ABNORMAL) URINALYSIS, REFLEX TO MICROSCOPIC (06/10/2023 3:42 PM EST) Color, Urine Yellow Light Yellow, Yellow, Dark Yellow 06/10/2023 3:56 PM EST LABORATORY [facility] Clarity, Urine Clear Clear 06/10/2023 3:56 PM EST LABORATORY [facility] Glucose, Urine Negative Negative mg/dL 06/10/2023 3:56 PM EST LABORATORY [facility] Bilirubin, Urine Negative Negative 06/10/2023 3:56 PM EST LABORATORY [facility] Ketone, Urine 15(A) Negative mg/dL 06/10/2023 3:56 PM EST LABORATORY [facility] Specific [place], Urine 1.043(H) 1.003 - 1.030 06/10/2023 3:56 PM EST LABORATORY [facility] Blood, Urine Trace(A) Negative 06/10/2023 3:56 PM EST LABORATORY [facility] pH, Urine 6.0 5.0 - 7.5 Units 06/10/2023 3:56 PM EST LABORATORY [facility] Protein, Urine 30(A) Negative mg/dL 06/10/2023 3:56 PM EST LABORATORY [facility] Urobilinogen, Urine 1.0 0.2, 1.0 mg/dL 06/10/2023 3:56 PM EST LABORATORY [facility] Nitrite, Urine Positive(A) Negative 06/10/2023 3:56 PM EST LABORATORY [facility] Esterase, Urine Trace(A) Negative 06/10/2023 3:56 PM EST LABORATORY [facility] Urine Urine specimen obtained by clean catch procedure / Unknown Non-blood Collection / Unknown 06/10/2023 3:42 PM EST 06/10/2023 3:51 PM EST [facility] LAB URINE ORDERABLE S LABORATORY [facility] [address] [place] [address] * CT PULMONARY EMBOLUS W CONTRAST (06/10/2023 3:09 PM EST) Anatomical Region Laterality Modality Chest, Cardio, Body Computed Bassem ography 06/10/2023 3:01 PM EST Impressions 06/10/2023 4:52 PM EST IMPRESSION: 1. Limited quality exam shows no evidence of large central pulmonary embolism. 2. Scattered nonspecific pulmonary opacities consistent with areas of parenchymal scar/atelectasis and paramediastinal fibrotic changes likely related to prior radiation therapy. 8 mm pleural-based left lower lobe pulmonary nodule, stable from prior. 3. Moderate cardiomegaly and atherosclerotic aorta. 4. Re-demonstration of multiple liver lesions consistent with metastatic disease. See report from recent CT PET exam of 06/02/2023 for further discussion. 5. Mild superior endplate compression at T11 with sclerotic changes in the vertebral body and hypermetabolism on recent CT PET consistent with metastatic disease. THIS DOCUMENT HAS BEEN ELECTRONICALLY SIGNED BY MANOHAR SMALLS MD Narrative 06/10/2023 4:52 PM EST PROCEDURE INFORMATION: Exam: CTA Chest With Contrast Exam date and time: 06/10/2023 3:01 PM Age: 88 years old Clinical indication: Other: SOB; Additional info: Positive d-dimer, mild shortness of breath, positive cancer history TECHNIQUE: Imaging protocol: Computed tomographic angiography of the chest with contrast. Exam focused on the arteries. 3D rendering (Not supervised by radiologist): MIP and/or 3D reconstructed images were created by the technologist. Radiation optimization: All CT scans at this facility use at least one of these dose optimization techniques: automated exposure control; mA and/or kV adjustment per patient size (includes targeted exams where dose is matched to clinical indication); or iterative reconstruction. Contrast material: OPTIRAY 350; Contrast volume: 100 ml; Contrast route: INTRAVENOUS (IV); REPORTING DATA: Count of CT and Cardiac NM exams in prior 12 months: This patient has received 4 known CTs and 0 known cardiac nuclear medicine studies in the 12 months prior to the current study. COMPAR[facility] 06/02/2023 11:[address] CHEST W CONTRAST 05/09/2023 1:05 PM FINDINGS: Pulmonary arteries: Pulmonary artery evaluation is limited by suboptimal timing of the contrast bolus as well as cardiac motion and streak artifact. With this limitation in mind there is no evidence of large central pulmonary embolism. Segmental and smaller pulmonary artery branches are not opacified well enough for comment. Aorta: Moderate soft and calcified plaque throughout the thoracic aorta. No evidence of aneurysm. Evaluation of the ascending aorta is limited by motion and streak artifact. Lungs: Scattered nonspecific opacities in the upper and lower lobes. Paramediastinal fibrotic changes likely related to prior radiation treatment. 8 mm pleural-based superior segment left lower lobe pulmonary nodule, image 88 series 2, stable from 05/09/2023 exam. Pleural spaces: No pleural effusion or pneumothorax. Heart: Moderate cardiomegaly. Moderate coronary artery calcification. No pericardial effusion. Lymph nodes: 1.3 cm right lower paratracheal lymph node, stable from prior. No bulky or necrotic lymphadenopathy. Liver: Re-demonstration of multiple hypodensities in the liver, hypermetabolic on recent PET-CT, consistent with metastatic disease. Bones/joints: Partial compression deformity of a lower thoracic vertebra, most likely T11, with mottled sclerosis. Post sternotomy changes with multiple sternal suture wires. Soft tissues: Soft tissues are unremarkable as visualized. Procedure Note Manohar Smalls MD - 06/10/2023 PROCEDURE INFORMATION: Exam: CTA Chest With Contrast Exam date and time: 06/10/2023 3:01 PM Age: 88 years old Clinical indication: Other: SOB; Additional info: Positive d-dimer, mild shortness of breath, positive cancer history TECHNIQUE: Imaging protocol: Computed tomographic angiography of the chest withcontrast. Exam focused on the arteries. 3D rendering (Not supervised by radiologist): MIP and/or 3D reconstructed images were created by the technologist. Radiation optimization: All CT scans at this facility use at least one ofthese dose optimization techniques: automated exposure control; mA and/or kV adjustment per patient size (includes targeted exams where dose is matchedto clinical indication); or iterative reconstruction. Contrast material: OPTIRAY 350; Contrast volume: 100 ml; Contrast route: INTRAVENOUS (IV); REPORTING DATA: Count of CT and Cardiac NM exams in prior 12 months: This patient hasreceived 4 known CTs and 0 known cardiac nuclear medicine studies in the 12 monthsprior to the current study. COMPARISON: [facility]. [facility] 06/02/2023 11:[address] CHEST W CONTRAST 05/09/2023 1:05 PM FINDINGS: Pulmonary arteries: Pulmonary artery evaluation is limited by suboptimaltiming of the contrast bolus as well as cardiac motion and streak artifact. Withthis limitation in mind there is no evidence of large central pulmonaryembolism. Segmental and smaller pulmonary artery branches are not opacified wellenough for comment. Aorta: Moderate soft and calcified plaque throughout the thoracic aorta.No evidence of aneurysm. Evaluation of the ascending aorta is limited bymotion and streak artifact. Lungs: Scattered nonspecific opacities in the upper and lower lobes. Paramediastinal fibrotic changes likely related to prior radiationtreatment. 8 mm pleural-based superior segment left lower lobe pulmonary nodule, image88 series 2, stable from 05/09/2023 exam. Pleural spaces: No pleural effusion or pneumothorax. Heart: Moderate cardiomegaly. Moderate coronary artery calcification. No pericardial effusion. Lymph nodes: 1.3 cm right lower paratracheal lymph node, stable fromprior. No bulky or necrotic lymphadenopathy. Liver: Re-demonstration of multiple hypodensities in the liver,hypermetabolic on recent PET-CT, consistent with metastatic disease. Bones/joints: Partial compression deformity of a lower thoracic vertebra,most likely T11, with mottled sclerosis. Post sternotomy changes with multiple sternal suture wires. Soft tissues: Soft tissues are unremarkable as visualized. IMPRESSION IMPRESSION: 1. Limited quality exam shows no evidence of large central pulmonary embolism. 2. Scattered nonspecific pulmonary opacities consistent with areas of parenchymal scar/atelectasis and paramediastinal fibrotic changes likely related to prior radiation therapy. 8 mm pleural-based left lower lobe pulmonary nodule, stable from prior. 3. Moderate cardiomegaly and atherosclerotic aorta. 4. Re-demonstration of multiple liver lesions consistent with metastatic disease. See report from recent CT PET exam of 06/02/2023 for further discussion. 5. Mild superior endplate compression at T11 with sclerotic changes inthe vertebral body and hypermetabolism on recent CT PET consistent withmetastatic disease. THIS DOCUMENT HAS BEEN ELECTRONICALLY SIGNED BY MANOHAR SMALLS MD [facility] CT * (ABNORMAL) TROPONIN T, HIGH SENSITIVITY (06/10/2023 1:42 PM EST) Troponin T, High Sensitivity 28(H) <=22 ng/L 06/10/2023 2:07 PM EST LABORATORY [facility] Blood Venous blood specimen / Unknown Venipuncture / Unknown 06/10/2023 1:42 PM EST 06/10/2023 1:46 PM EST Tremayne Leavitt DO LAB BLOOD ORDERABLE S [address] [address] * XR CHEST 2 VIEWS (06/10/2023 1:12 PM EST) Anatomical Region Laterality Modality Chest Digital Radiogra phy 06/10/2023 12:5 8 PM EST Impressions 06/10/2023 1:33 PM EST IMPRESSION: Chronic change THIS DOCUMENT HAS BEEN ELECTRONICALLY SIGNED BY NASRIN SPEARS MD Narrative 06/10/2023 1:33 PM EST PROCEDURE INFORMATION: Exam: XR Chest Exam date and time: 06/10/2023 12:58 PM Age: 88 years old Clinical indication: Other: Cough TECHNIQUE: Imaging protocol: Radiologic exam of the chest. Views: 2 views. COMPARISON: DX XR ABDOMEN OBSTRUCT SERIES W CHEST 1 VIEW 05/26/2023 1:07 PM FINDINGS: Lungs: Elevation of the right hemidiaphragm is seen due to an anterior focal eventration. No new focal consolidation is seen. There is prominence of the right hilum due to chronic atelectasis Pleural spaces: There is no pleural effusion Heart/Mediastinum: The heart is not enlarged Bones/joints: There has been a sternotomy Procedure Note Nasrin Spears MD - 06/10/2023 PROCEDURE INFORMATION: Exam: XR Chest Exam date and time: 06/10/2023 12:58 PM Age: 88 years old Clinical indication: Other: Cough TECHNIQUE: Imaging protocol: Radiologic exam of the chest. Views: 2 views. COMPARISON: DX XR ABDOMEN OBSTRUCT SERIES W CHEST 1 VIEW 05/26/2023 1:07 PM FINDINGS: Lungs: Elevation of the right hemidiaphragm is seen due to an anteriorfocal eventration. No new focal consolidation is seen. There is prominence ofthe right hilum due to chronic atelectasis Pleural spaces: There is no pleural effusion Heart/Mediastinum: The heart is not enlarged Bones/joints: There has been a sternotomy IMPRESSION IMPRESSION: Chronic change THIS DOCUMENT HAS BEEN ELECTRONICALLY SIGNED BY NASRIN SPEARS [facility]RAD GENE RAL[facility] * RESPIRATORY PATHOGEN PANEL, PCR (06/10/2023 12:50 PM EST) Adenovirus by PCR Negative Negative 023 1:50 PM EST LABORATORY [facility] Coronavirus 229E by PCR Negative Negative 06/10/2023 1:50 PM EST LABORATORY [facility] Coronavirus HKU1 by PCR Negative Negative 06/10/2023 1:50 PM EST LABORATORY [facility] Coronavirus NL63 by PCR Negative Negative 06/10/2023 1:50 PM EST LABORATORY [facility] Coronavirus OC43 by PCR Negative Negative 06/10/2023 1:50 PM EST LABORATORY GL Coronavirus SARS-CoV-2 by PCR Negative Negative 06/10/2023 1:50 PM EST LABORATORY [facility] Human Metapneumovirus by PCR Negative Negative 06/10/2023 1:50 PM EST LABORATORY [facility] Rhinovirus/Enterovi alfredo by PCR Negative Negative 06/10/2023 1:50 PM EST LABORATORY [facility] Influenza A Virus by PCR Negative Negative 06/10/2023 1:50 PM EST LABORATORY [facility] Influenza B Virus by PCR Negative Negative 06/10/2023 1:50 PM EST LABORATORY [facility] Parainfluenza Virus 1 by PCR Negative Negative 06/10/2023 1:50 PM EST LABORATORY [facility] Parainfluenza Virus 2 by PCR Negative Negative 06/10/2023 1:50 PM EST LABORATORY [facility] Parainfluenza Virus 3 by PCR Negative Negative 06/10/2023 1:50 PM EST LABORATORY [facility] Parainfluenza Virus 4 by PCR Negative Negative 06/10/2023 1:50 PM EST LABORATORY [facility] Respiratory Syncytial Virus by PCR Negative Negative 06/10/2023 1:50 PM EST LABORATORY GL Bordetella pertussis by PCR Negative Negative 06/10/2023 1:50 PM EST LABORATORY GL Chlamydia pneumoniae by PCR Negative Negative 06/10/2023 1:50 PM EST LABORATORY GL Mycoplasma pneumoniae by PCR Negative Negative 06/10/2023 1:50 PM EST LABORATORY GL Bordetella parapertussis by PCR Negative Negative 06/10/2023 1:50 PM EST LABORATORY [facility] Comment: The primers that detect Rhinovirus may cross react with some Enterorviruses. The validation of bronchial specimens, tracheal aspirates, and throats for this assay was developed and performance characteristics determined by [employer]. The validation of alternate specimen types has not been cleared or approved by the U.S. Food and Drug Administration (FDA). It has been determined that such clearance or approval is not necessary. Upper Respiratory Mid-turbinate nasal swab / Unknown Non-blood Collection / Unknown 06/10/2023 12:50 PM EST 06/10/2023 12:53 PM EST [facility] MICRO - GENERAL ORDERABLES Performing Organization Address [facility] Co de Phone Number LABORATORY [address] [address] * (ABNORMAL) PHOSPHORUS (06/10/2023 12:04 PM EST) Phosphorus 2.0(L) 2.5 - 4.8 mg/dL 06/10/2023 1:02 PM EST LABORATORY [facility] Blood Venous blood specimen / Unknown Venipuncture / Unknown 06/10/2023 12:04 PM EST 06/10/2023 12:08 PM EST [facility] BLOOD ORDERABLE S Performing Organization Address [facility] Co de Phone Number LABORATORY [address] [address] * MAGNESIUM (06/10/2023 12:04 PM EST) Magnesium 2.1 1.5 - 2.6 mg/dL 06/10/2023 1:02 PM EST LABORATORY [facility] Blood Venous blood specimen / Unknown Venipuncture / Unknown 06/10/2023 12:04 PM EST 06/10/2023 12:08 PM EST [facility] BLOOD ORDERABLE S Performing Organization Address City/[facility] Co de Phone Number LABORATORY [address] [phone] * (ABNORMAL) BNP, NT-PRO (06/10/2023 12:04 PM EST) Pathologist [facility] BNP, NT-Pro 1,302(H) <300 pg/mL 06/10/2023 1:02 PM EST LABORATORY [facility] Blood Venous blood specimen / Unknown Venipuncture / Unknown 06/10/2023 12:04 PM EST 06/10/2023 12:08 PM EST Narrative LABORATORY [facility] - 06/10/2023 1:02 PM EST Exclude Heart Failure: <300 pg/mL Diagnose Heart Failure: Age <50 yr: >450 pg/mL 50-75 yr: >900 pg/mL >75 yr: >1800 pg/mL GFR is 30-59 mL/min: >1200 pg/mL or Age-adjusted values GFR <30 mL/min: do not use, not reliable Prognostic threshold: 1000 pg/mL [facility] LAB BLOOD ORDERABLE S Performing Organization Address [facility]/ZIP Co de Phone Number LABORATORY [address] [phone] * (ABNORMAL) TROPONIN T, HIGH SENSITIVITY (06/10/2023 12:04 PM EST) Pathologist [facility] Troponin T, High Sensitivity 30(H) <=22 ng/L 06/10/2023 1:02 PM EST LABORATORY [facility] Blood Venous blood specimen / Unknown Venipuncture / Unknown 06/10/2023 12:04 PM EST 06/10/2023 12:08 PM EST [facility] LAB BLOOD ORDERABLE S LABORATORY [address] [address] * (ABNORMAL) D-DIMER (06/10/2023 12:04 PM EST) [facility] D-Dimer 1.46(H) <0.50 ug/mL FEU 06/10/2023 12:32 PM EST LABORATORY [facility] Blood Venous blood specimen / Unknown Venipuncture / Unknown 06/10/2023 12:04 PM EST 06/10/2023 12:08 PM EST [facility] LABORATORY [facility] - 06/10/2023 12:32 PM EST Rheumatoid factor at a level above 50 IU/mL may lead to an overestimation of the D-dimer level. A normal D-dimer result (<0.50 ug/mL FEU) has a negative predictive value of approximately 95% for the exclusion of acute pulmonary embolism (PE) or deep vein thrombosis when there is low or moderate pretest PE probability. Increased D-dimer values are abnormal but do not indicate a specific disease state and the D-dimer increase does not definitively correlate with clinical severity of disease. Tremayne Leavitt LAB BLOOD ORDERABLE S LABORATORY [facility] [address] [place] [address] * (ABNORMAL) DIFFERENTIAL, AUTOMATED (06/10/2023 12:04 PM EST) WBC 9.72 4.00 - 10.80 K/uL 06/10/2023 12:17 PM EST LABORATORY [facility] Neutrophils % 88.1(H) 40.0 - 75.0 % 06/10/2023 12:17 PM EST LABORATORY [facility] Lymphocytes % 3.8(L) 18.0 - 42.0 % 06/10/2023 12:17 PM EST LABORATORY [facility] Monocytes % 7.6 1.0 - 11.0 % 06/10/2023 12:17 PM EST LAB[facility]ORY [facility] Eosinophils % 0.0 0.0 - 6.0 % 06/10/2023 12:17 PM EST LAB[facility] Basophils % 0.1 0.0 - 2.0 % 06/10/2023 12:17 PM EST LABORATORY GL Immature Granulocytes % 0.4 0.0 - 2.0 % 06/10/2023 12:17 PM EST LABORATORY GL Absolute Neutrophils 8.56(H) 1.80 - 7.70 K/uL 06/10/2023 12:17 PM EST LABORATORY [facility] Absolute Lymphocytes 0.37(L) 1.00 - 4.80 K/ul 06/10/2023 12:17 PM EST LABORATORY GL Absolute Monocytes 0.74 0.00 - 1.10 K/uL 06/10/2023 12:17 PM EST LABORATORY GL Absolute Eosinophils 0.00 0.00 - 0.70 K/uL 06/10/2023 12:17 PM EST LABORATORY GL Absolute Basophils 0.01 0.00 - 0.20 K/uL 06/10/2023 12:17 PM EST LABORATORY GL Absolute Immature Granulocytes 0.04 0.00 - 0.20 K/uL 06/10/2023 12:17 PM EST LABORATORY [facility] Blood Venous blood specimen / Unknown Venipuncture / Unknown 06/10/2023 12:04 PM EST 06/10/2023 12:08 PM EST [facility] LAB[facility] [address] [place] [address] * CBC (06/10/2023 12:04 PM EST) WBC 9.72 4.00 - 10.80 K/uL 06/10/2023 12:17 PM EST LABORATORY GL RBC 5.20 4.50 - 5.25 M/uL 06/10/2023 12:17 PM EST LABORATORY [facility] HGB 15.3 14.0 - 16.8 g/dL 06/10/2023 12:17 PM EST LABORATORY [facility] HCT 46.0 40.0 - 48.4 % 06/10/2023 12:17 PM EST LABORATORY [facility] MCV 88.5 82.0 - 99.5 fL 06/10/2023 12:17 PM EST LABORATORY GL MCH 29.4 27.0 - 34.0 pg 06/10/2023 12:17 PM EST LABORATORY GL MCHC 33.3 32.0 - 36.0 g/dL 06/10/2023 12:17 PM EST LABORATORY [facility] RDW 13.2 11.5 - 15.5 % 06/10/2023 12:17 PM EST LABORATORY GL PLT 172 140 - 400 K/uL 06/10/2023 12:17 PM EST LABORATORY GL MPV 11.1 6.6 - 11.1 fL 06/10/2023 12:17 PM EST LABORATORY GL nRBCs 0 <=0 /100 WBCs 06/10/2023 12:17 PM EST LABORATORY [facility] Blood Venous blood specimen / Unknown Venipuncture / Unknown 06/10/2023 12:04 PM EST 06/10/2023 12:08 PM EST Tremayne Wymanney DO LAB BLOOD ORDERABLE S Performing Organization Address City/[facility]/ZIP Co de Phone Number LABORATORY [address] [address] * LACTATE (06/10/2023 12:04 PM EST) Lactate 1.7 0.4 - 2.0 mmol/L 06/10/2023 12:26 PM EST LABORATORY [facility] Blood Venous blood specimen / Unknown Venipuncture / Unknown 06/10/2023 12:04 PM EST 06/10/2023 12:08 PM EST [facility] S Performing Organization Address City/[facility]/ZIP Co de Phone Number LABORATORY [address] [address] * EXTRA LIGHT BLUE TOP (06/10/2023 12:04 PM EST) Blood Venous blood specimen / Unknown Venipuncture / Unknown 06/10/2023 12:04 PM EST 06/10/2023 12:08 PM EST Tremayne Leavitt LAB BLOOD ORDERABLE S Performing Organization Address City/[facility]/ZIP Co de Phone Number LABORATORY [address] [address] * LIPASE (06/10/2023 12:04 PM EST) Lipase 32 13 - 60 U/L 06/10/2023 12:36 PM EST LABORATORY [facility] Blood Venous blood specimen / Unknown Venipuncture / Unknown 06/10/2023 12:04 PM EST 06/10/2023 12:08 PM EST Tremayne Wymanney DO LAB BLOOD ORDERABLE S LAB[facility]ATORY [facility] [address] [place] [address] * (ABNORMAL) COMPREHENSIVE METABOLIC PANEL (06/10/2023 12:04 PM EST) BUN 14 6 - 20 mg/dL 06/10/2023 12:36 PM EST LAB[facility] Creatinine 0.7 0.6 - 1.2 mg/dL 06/10/2023 12:36 PM EST LAB[facility] Estimated Glomerular Filtration Rate 88 >=60 mL/min 06/10/2023 12:36 PM EST LAB[facility]ORY [facility] Comment:eGFR is calculated b ased on the CKD-EPI 2020 equation Sodium 137 135 - 146 mmol/L 06/10/2023 12:36 PM EST LAB[facility]ORY [facility] Potassium 2.5(L) 3.5 - 5.1 mmol/L 06/10/2023 12:36 PM EST LAB[facility] Chloride 93(L) 98 - 107 mmol/L 06/10/2023 12:36 PM EST LAB[facility] CO2 29 22 - 32 mmol/L 06/10/2023 12:36 PM EST [facility] Anion Gap 15 7 - 15 mmol/L 06/10/2023 12:36 PM EST [facility] Glucose 138(H) 70 - 120 mg/dL 06/10/2023 12:36 PM EST LAB[facility] Albumin 3.6(L) 3.8 - 5.0 g/dL 06/10/2023 12:36 PM EST [facility] AST 63(H) 10 - 50 U/L 06/10/2023 12:36 PM EST LAB[facility] Alkaline Phosphatase 165(H) 35 - 130 U/L 06/10/2023 12:36 PM EST LAB[facility] Bilirubin, Total 1.1 <=1.2 mg/dL 06/10/2023 12:36 PM EST LAB[facility] Calcium 8.6 8.4 - 10.2 mg/dL 06/10/2023 12:36 PM EST [facility] Protein 6.8 6.0 - 8.3 g/dL 06/10/2023 12:36 PM EST [facility] ALT 48 10 - 50 U/L 06/10/2023 12:36 PM EST [facility] Blood Venous blood specimen / Unknown Venipuncture / Unknown 06/10/2023 12:04 PM EST 06/10/2023 12:08 PM EST Tremayne Leavitt DO LAB [place]LOOD [place] [address] * EKG (06/10/2023 11:29 AM EST) 06/10/2023 11:2 9 AM EST Narrative Procedure Note Jacob Carmona DO - 06/10/2023 11:29 AM EST REASON FOR STUDY: VOMIT CONCLUSIONS: Atrial rhythm undetermined Left axis deviation Left ventricular hypertrophy with secondary QRS widening Abnormal ECG When compared with ECG of 21-MAY-2023 04:23, Warning: interpretation of this ECG, although attempted, may be adverselyaffected by data quality Suggest repeat tracing with better attention to quality of tracing Ventricular Rate: 67 Atrial Rate: 326 QRS Duration: 122 QT/QTc: 438/462 ms P-R-T [place]: 0 : -46 : -2 degrees [place] UGALDE EKG Performing Organization Address City/[facility]/ZIP Co de Phone Number CAT CARDIOLOGY documented in this encounter Visit Diagnoses Diagnosis Intractable nausea and vomiting- Primary Persistent vomiting Vomiting Vomiting alone Electrolyte abnormality Electrolyte and fluid disorders not elsewhere classified nursing home current use of systemic steroids Encounter for long-term (current) use of steroids SANJEEV (obstructive sleep apnea) Obstructive sleep apnea (adult) (pediatric) 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) HTN, goal below 140/90 Unspecified essential hypertension PMR (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) (HCC) Polymyalgia rheumatica Prostate cancer metastatic to bone (HCC) [place] (hard of hearing) Unspecified hearing loss DNR (do not resuscitate) Do not resuscitate status COPD, group C, by GOLD 2017 classification (HCC) Chronic respiratory failure with hypoxia (HCC) Chronic respiratory failure Hypokalemia Hypopotassemia Hypophosphatemia Disorders of phosphorus metabolism UTI (urinary tract infection) Urinary tract infection, site not specified Metastases to the liver (HCC) Secondary malignant neoplasm of liver documented in this encounter Administered Medications Inactive Administered Medications - up to 3 most recent administrations Medication Order MAR Action Action Date Dose Rate Site Acetaminophen (Ofirmev) inj 1,000 mg 1,000 mg, Intravenous, ONCE, 1 dose, On 06/10/23 at 1300, Administer over 15 Minutes, Administer undiluted over 15 minutes! NOTE: Maximum of 4000 mg per 24 hours of acetaminophen from all acetaminophen containing products., Indication: Patient is experiencing severe nausea and vomiting New Bag 06/10/2023 12:48 PM EST 1,000 mg 400 mL/hr Acetaminophen (Tylenol) tab 975 mg 975 mg, Oral, TID(AM/NOON/HS), First dose on 06/10/23 at 2200, Until Discontinued, Maximum of 4 grams (4000 mg) per day. Given 06/13/2023 11:10 AM EST 975 mg Given 06/13/2023 7:01 AM EST 975 mg Given 06/12/2023 9:52 PM EST 975 mg albuterol-ipratropium (Duoneb) inhalation solution 3 mL 3 mL, Nebulizer, RESPQID, First dose on 06/10/23 at 1900, Until Discontinued, 3 mL = 0.5 mg ipratropium/ 2.5 mg albuterol Given 06/10/2023 8:11 PM EST 3 mL albuterol-ipratropium (Duoneb) inhalation solution 3 mL 3 mL, Nebulizer, Q4H PRN Dyspnea, Starting on 06/10/23 at 2030, Until 06/13/23 at 1745, 3 mL = 0.5 mg ipratropium/ 2.5 mg albuterol amLODIPine (Norvasc) tab 5 mg 5 mg, Oral, Daily(AM), First dose on 06/11/23 at 0900, Until Discontinued, Hold for SBP < 120 Given 06/13/2023 10:39 AM EST 5 mg Given 06/12/2023 9:25 AM EST 5 mg Given 06/11/2023 8:52 AM EST 5 mg aspirin enteric coated tab 81 mg 81 mg, Oral, Daily(AM), First dose on 06/11/23 at 0900, Until Discontinued, This med should NOT be Crushed or Chewed Given 06/13/2023 10:39 AM EST 81 mg Given 06/11/2023 8:51 AM EST 81 mg Atenolol (Tenormin) tab 50 mg 50 mg, Oral, Daily(AM), First dose on 06/11/23 at 0900, Until Discontinued, Hold for HR less than 60 or SBP below 100 and notify service if dose is held Given 06/13/2023 10:38 AM EST 50 mg Given 06/12/2023 9:24 AM EST 50 mg Given 06/11/2023 8:51 AM EST 50 mg Atenolol (Tenormin) tab 75 mg 75 mg, Oral, HS, First dose on 06/10/23 at 2200, Until Discontinued, Hold for HR less than 60 or SBP below 100 and notify service if dose is held Given 06/12/2023 9:52 PM EST 75 mg Given 06/11/2023 9:46 PM EST 75 mg Given 06/10/2023 10:04 PM EST 75 mg atorvaSTATin (Lipitor) tab 20 mg 20 mg, Oral, Q1700, First dose on 06/10/23 at 1730, Until Discontinued Given 06/12/2023 5:32 PM EST 20 mg Given 06/11/2023 5:44 PM EST 20 mg Given 06/10/2023 7:29 PM EST 20 mg Baclofen (Lioresal) tab 5 mg 5 mg, Oral, BID (0700,1900), First dose on 06/10/23 at 1900, Until Discontinued Given 06/13/2023 7:01 AM EST 5 mg Given 06/12/2023 6:23 PM EST 5 mg Given 06/12/2023 6:23 AM EST 5 mg benazepril (Lotensin) tab 40 mg 40 mg, Oral, Daily(AM), First dose on 06/11/23 at 0900, Until Discontinued, Hold for SBP < 120 Given 06/13/2023 10:47 AM EST 40 mg Given 06/12/2023 9:38 AM EST 40 mg Given 06/11/2023 8:50 AM EST 40 mg busPIRone (Buspar) tab 5 mg 5 mg, Oral, BID (.AM/PM), First dose on 06/10/23 at 2100, Until Discontinued Given 06/13/2023 10:39 AM EST 5 mg Given 06/12/2023 9:52 PM EST 5 mg Given 06/12/2023 9:25 AM EST 5 mg cefTRIAXone in dextrose (Rocephin) IVPB 1 g IV Piggyback, 1 g, Q24H, 5 doses, First dose on 06/10/23 at 1715, Last dose on 06/14/23 at 1715, Administer over 30 Minutes New Bag 06/12/2023 5:36 PM EST 1 g 100 mL/hr New Bag 06/11/2023 5:44 PM EST 1 g 100 mL/hr New Bag 06/10/2023 6:19 PM EST 1 g 100 mL/hr Docusate Sodium (Colace) cap 100 mg 100 mg, Oral, BID (.AM/PM), First dose on 06/10/23 at 2100, Until Discontinued, For oral administration ONLY, if route of administration is other than oral and alternative product must be ordered. Given 06/13/2023 10:39 AM EST 100 mg Given 06/12/2023 9:52 PM EST 100 mg doxazosin (Cardura) tab 8 mg 8 mg, Oral, HS, First dose on 06/10/23 at 2200, Until Discontinued Given 06/12/2023 10:00 PM EST 8 mg Given 06/11/2023 9:46 PM EST 8 mg Given 06/10/2023 10:04 PM EST 8 mg Enoxaparin (Lovenox) inj 40 mg 40 mg, Subcutaneous, Daily(AM), First dose on 06/11/23 at 0900, Until Discontinued, If patient is on warfarin, inform provider if daily INR value is 2 or greater! Given 06/13/2023 10:39 AM EST 40 mg Abdo men Left Lower Given 06/11/2023 8:50 AM EST 40 mg Ab domen Right Lower Finasteride (Proscar) tab 5 mg 5 mg, Oral, Daily(AM), First dose on 06/11/23 at 0900, Until Discontinued Given 06/13/2023 10:39 AM EST 5 mg Given 06/12/2023 9:25 AM EST 5 mg Given 06/11/2023 8:51 AM EST 5 mg fluticasone (Flonase) nasal inhaler 2 Garland 2 Garland, Each Nostril, Daily(AM), First dose on Mon06/11/23 at 0900, Until Discontinued, 50 mcg / Actuation Given 06/11/2023 8:49 AM EST 2 Sprays fluticasone furoate-vilanterol (BREO ellipta) 100-25 MCG/ACT inhaler 1 Puff 1 Puff, Inhalation, RESPDAILY, First dose on Mon06/11/23 at 0700, Until Discontinued Given 06/13/2023 8:[address] 1 Puff Given 06/12/2023 7:55 AM EST 1 Puff Given 06/11/2023 6:25 AM EST 1 Puff Furosemide (Lasix) inj 60 mg 60 mg, IV Push, ONCE, On Mon06/13/23 at 1130, For 1 dose Given 06/13/2023 11:10 AM EST 60 mg Furosemide (Lasix) tab 20 mg 20 mg, Oral, Daily(AM), First dose on Mon06/13/23 at 0900, Until Discontinued Given 06/13/2023 10:39 AM EST 20 mg Furosemide (Lasix) tab 20 mg 20 mg, Oral, ONCE, On Mon06/12/23 at 1015, For 1 dose Given 06/12/2023 10:38 AM EST 20 mg Gabapentin (Neurontin) cap 400 mg 400 mg, Oral, QID(AM/NOON/PM/HS), First dose on Mon06/10/23 at 1800, Until Discontinued Given 06/13/2023 11:10 AM EST 400 mg Given 06/13/2023 7:01 AM EST 400 mg Given 06/12/2023 9:52 PM EST 400 mg guaiFENesin-dm (Robitussin DM) oral syrup 10 mL 10 mL, Oral, Q6H PRN Cough, Starting on Mon06/10/23 at 1640, Until Mon06/13/23 at 1745 HYDROmorphone (Dilaudid) inj 0.25 mg 0.25 mg, IV Push, Q30 MIN PRN Pain, Severe, Pain, Breakthrough, Starting on Mon06/10/23 at 1222, Until Mon06/13/23 at 1745, For 3 doses Ioversol (Optiray 320) inj 100 mL 100 mL, Intravenous, ONCE, On 06/10/23 at 1545, For 1 dose, Radiology Medication Routing (Non-IR) Given 06/10/2023 3:45 PM EST 100 mL isolyte-S PH 7.4 1,000 mL with potassium chloride 40 mEq INFUSION Intravenous, at 54.25 mL/hr Administer over 20 Hours, Stop after 1 L total (20 hours), CONTINUOUS, Starting on Mon06/10/23 at 1715, Until Mon06/11/23 at 1013 Rate Verify 06/11/2023 6:42 AM EST 54.25 mL/hr Rate Verify 06/11/2023 1:58 AM EST 54.25 mL/hr New Bag 06/10/2023 6:16 PM EST 54.25 mL/hr isolyte-S pH 7.4 infusion Intravenous, at 50 mL/hr, Plasma-LYTE 148, isolyte-S, and isolyte-S pH 7.4 are considered equivalent - including for MAR barcode scanning., CONTINUOUS, Starting on Mon06/12/23 at 0845, Until Mon06/12/23 at 1340 New Bag 06/12/2023 9:47 AM EST 50 m L/hr LORAzepam (Ativan) tab 0.5 mg 0.5 mg, Oral, Q12H PRN Anxiety, Starting on Mon06/10/23 at 1639, Until Mon06/13/23 at 1745 Given 06/10/2023 6:05 PM EST 0.5 mg magnesium chloride ER (Mag-64) tab 128 mg 128 mg, Oral, Daily(AM), First dose on Mon06/11/23 at 0900, Until Discontinued, Each tablet contains 64 mg elemental Magnesium Due to various manufacturers, tablets labeled 70mg are considered to be equivalent Given 06/13/2023 10:38 AM EST 128 mg Given 06/12/2023 9:25 AM EST 128 mg Given 06/11/2023 8:51 AM EST 128 mg melatonin tab 3 mg 3 mg, Oral, HS PRN Insomnia, Starting on Mon06/10/23 at 1640, Until Mon06/13/23 at 1745 Given 06/11/2023 9:47 PM EST 3 mg NSS 0.9% 1,000 mL bolus infusion Peripheral IV, at 1,000 mL/hr Administer over 60 Minutes, Administer entire volume within 60 minutes or less., ONCE, 1 dose, On 06/10/23 at 1300 New Bag 06/10/2023 12:45 PM EST 1,000 mL 1000 mL/hr omeprazole (PriLOSEC) cap 20 mg 20 mg, Oral, BID (.AM/PM), First dose on 06/10/23 at 2100, Until Discontinued, This med should NOT be Crushed or Chewed Given 06/13/2023 10:39 AM EST 20 mg Given 06/12/2023 9:52 PM EST 20 mg Given 06/12/2023 9:25 AM EST 20 mg ondansetron (Zofran) inj 4 mg 4 mg, IV Push, ONCE, On 06/10/23 at 1300, For 1 dose Given 06/10/2023 12:46 PM EST 4 mg ondansetron (Zofran) inj 4 mg 4 mg, IV Push, Q6H PRN Nausea, Vomiting, Starting on 06/10/23 at 1638, Until 06/13/23 at 1745 oxygen GAS Inhalation, OXYGEN, First dose on 06/10/23 at 1730, Until Discontinued, Device/Managed by: Low Flow Device, Goal SPO2 (%): 88-94, Starting Device: Nasal Cannula, Initial Flow Rate (LPM): 2, Lowest Support: Nasal Cannula: Flow 0-6 LPM. Titrate up/down by 1 LPM., Titration Interval: Q2 minutes and as needed., Notify Provider: For sudden DECREASE in resting SPO2 to less than 85% and when escalating delivery device., 1.5 L to 2 L oxygen continuously (chronic oxygen) Oxygen On 06/13/2023 8:00 AM EST 1.5 L/min(Oxygen) Oxygen On 06/13/2023 12:00 AM EST Oxygen On 06/12/2023 4:00 PM EST Polyethylene Glycol 3350 (Miralax) oral powder 17 g 17 g, Oral, Daily(AM), First dose on 06/10/23 at 1730, Until Discontinued, Mix in 8 oz of water, juice, soda, coffee, or tea. Given 06/11/2023 8:49 AM EST 17 g Given 06/10/2023 7:29 PM EST 17 g potassium and sodium phosphate (Phos-Nak) oral powder 2 Packet 2 Packet, Oral, ONCE, On 06/10/23 at 1630, For 1 dose, Mix 1 packet in 2.5 ounces (75 mL) of water, stir well and administer promptly. 1 packet contains Phosphorus 250 mg (~8 mMoles) + potassium 280 mg (~7.125 mEq) + sodium 160mg (~7.125 mEq) Given 06/10/2023 6:06 PM EST 2 Packets potassium chloride 10 mEq in 100 mL ivpb LOCKED DOSE 10 mEq, Peripheral IV, ONCE, 1 dose, On 06/10/23 at 1400, Administer over 60 Minutes, Standard infusion duration is 60 minutes. New Bag 06/10/2023 1:42 PM EST 10 mEq 100 mL/hr potassium chloride 10 mEq in 100 mL ivpb LOCKED DOSE 10 mEq, Peripheral IV, Q1H, 3 doses, First dose on Mon06/10/23 at 1700, Last dose on Mon06/10/23 at 1900, Administer over 60 Minutes, Standard infusion duration is 60 minutes. New Bag 06/10/2023 8:36 PM EST 10 mEq 100 mL/hr New Bag 06/10/2023 7:29 PM EST 10 mEq 100 mL/hr New Bag 06/10/2023 6:20 PM EST 10 mEq 100 mL/hr potassium chloride 10 mEq in 100 mL ivpb LOCKED DOSE 10 mEq, Peripheral IV, Q1H, 2 doses, First dose on Mon06/11/23 at 0900, Last dose on Mon06/11/23 at 1000, Administer over 60 Minutes, Standard infusion duration is 60 minutes. New Bag 06/11/2023 10:07 AM EST 10 mEq 100 mL /hr New Bag 06/11/2023 8:47 AM EST 10 mEq 100 mL/hr potassium chloride 10 mEq in 100 mL ivpb LOCKED DOSE 10 mEq, Peripheral IV, Q1H, 1 dose, First dose on Mon06/12/23 at 0900, Administer over 60 Minutes, Standard infusion duration is 60 minutes. New Bag 06/12/2023 9:51 AM EST 10 mEq 100 mL/ hr potassium chloride ER tab 30 mEq 30 mEq, Oral, Daily(AM), First dose on Mon06/11/23 at 0900, Until Discontinued Given 06/13/2023 10:38 AM EST 30 mEq Given 06/12/2023 9:26 AM EST 30 mEq Given 06/11/2023 8:51 AM EST 30 mEq potassium CHLORide liquid 40 mEq 40 mEq, Oral, ONCE, On 06/10/23 at 1700, For 1 dose, To avoid GI irritation, must further diilute 15 ml in 3 ounces H2O or other fluid Given 06/10/2023 6:06 PM EST 40 mEq predniSONE (Deltasone) tab 5 mg 5 mg, Oral, Daily(AM), First dose on 06/11/23 at 0900, Until Discontinued Given 06/13/2023 10:38 AM EST 5 mg Given 06/12/2023 9:25 AM EST 5 mg Given 06/11/2023 8:50 AM EST 5 mg prochlorperazine (Compazine) inj 10 mg 10 mg, IV Push, Q6H PRN Nausea, Vomiting, use if zofran ineffective, Starting on 06/10/23 at 1638, Until Mon06/13/23 at 1745 prochlorperazine (Compazine) inj 5 mg 5 mg, IV Push, ONCE, On 06/10/23 at 1715, For 1 dose Given 06/10/2023 6:05 PM EST 5 mg senna-docusate (Senokot-S) 1 Tablet 1 Tablet, Oral, DAILY PRN Constipation, Starting on 06/10/23 at 1640, Until Mon06/13/23 at 1745 sodium chloride 0.9 % flush peripheral piotr 3 mL 3 mL, IV Push, QSHIFT, First dose on 06/10/23 at 1715, Until Discontinued, Do not flush if lock, PICC, or central line not in place; IV infusing or unable to flush. Given 06/13/2023 8:00 AM EST 3 mL Given 06/13/2023 12:00 AM EST 3 mL Given 06/12/2023 4:00 PM EST 3 mL documented in this encounter Active and Recently Administered Medications Times are shown in EST. Scheduled Medication Order 06/11/2023 06/12/2023 06/13/2023 Acetaminophen (Tylenol) tab 975 mg 975 mg, Oral, TID(AM/NOON/HS), First dose on 06/10/23 at 2200, Until Discontinued, Maximum of 4 grams (4000 mg) per day. 0525 (Given - Provider: Rita Siu RN)1246 (Given - Provider: Tete Tavera RN)214 (Given - Provider: Lindsay Lilly, RN) 06 (Given - Provider: Lindsay Lilly RN)124 (Given - Provider: Gail Vences, RN)215 (Given - Provider: Padmini Patel, RN) 07 (Given - Provider: Jessica Langston, RN)1110 (Given - Provider: Sandie Pickett RN) amLODIPine (Norvasc) tab 5 mg 5 mg, Oral, Daily(AM), First dose on 06/11/23 at 0900, Until Discontinued, Hold for SBP < 120 0852 (Given - Provider: Tete Tavera RN) 0925 (Given - Provider: Gail Vences RN) 1039 (Given - Provider: Bryon Wills LPN) aspirin enteric coated tab 81 mg 81 mg, Oral, Daily(AM), First dose on 06/11/23 at 0900, Until Discontinued, This med should NOT be Crushed or Chewed 0851 (Given - Provider: Tete Tavera RN) 0900 (Not Given - Provider: Gail Vences RN - Reason: Clinician Judgement-Notify Provider) 1039 (Given - Provider: Bryon Wills LPN) Atenolol (Tenormin) tab 50 mg 50 mg, Oral, Daily(AM), First dose on 06/11/23 at 0900, Until Discontinued, Hold for HR less than 60 or SBP below 100 and notify service if dose is held 0851 (Given - Provider: Tete Tavera RN) 0924 (Given - Provider: Gail Vences RN) 1038 (Given - Provider: Bryon Wills LPN) Atenolol (Tenormin) tab 75 mg 75 mg, Oral, HS, First dose on 06/10/23 at 2200, Until Discontinued, Hold for HR less than 60 or SBP below 100 and notify service if dose is held 2145 (Given - Provider: Lindsay Lilly RN) 215 (Given - Provider: Padmini Patel, VEDA) atorvaSTATin (Lipitor) tab 20 mg 20 mg, Oral, Q1700, First dose on Mon06/10/23 at 1730, Until Discontinued 174 (Given - Provider: Tete Tavera RN) 173 (Given - Provider: Gail Vences RN) Baclofen (Lioresal) tab 5 mg 5 mg, Oral, BID (0700,1900), First dose on Mon06/10/23 at 1900, Until Discontinued 0525 (Given - Provider: Rita Siu RN)181 (Given - Provider: Tete Tavera RN) 0623 (Given - Provider: Lindsay Lilly RN)182 (Given - Provider: Gail Vences, VEDA) 0701 (Given - Provider: Jessica Langston RN) benazepril (Lotensin) tab 40 mg 40 mg, Oral, Daily(AM), First dose on Mon06/11/23 at 0900, Until Discontinued, Hold for SBP < 120 0850 (Given - Provider: Tete Tavera RN) 0938 (Given - Provider: Gail Vences RN) 1047 (Given - Provider: Bryon Wills LPN) busPIRone (Buspar) tab 5 mg 5 mg, Oral, BID (.AM/PM), First dose on Mon06/10/23 at 2100, Until Discontinued 0852 (Given - Provider: Tete Tavera RN)2146 (Given - Provider: Lindsay Lilly RN) 09 (Given - Provider: Gail Vences RN)215 (Given - Provider: Padmini Patel RN) 1039 (Given - Provider: Bryon Wills LPN) cefTRIAXone in dextrose (Rocephin) IVPB 1 g IV Piggyback, 1 g, Q24H, 5 doses, First dose on Mon06/10/23 at 1715, Last dose on Mon06/14/23 at 1715, Administer over 30 Minutes 174 (New Bag - Provider: Tete Tavera RN)1813 (Stopped - Provider: Lindsay Lilly RN) 1735 (New Bag - Provider: Gail Vences RN) 1744 (Due: Stopped) Docusate Sodium (Colace) cap 100 mg 100 mg, Oral, BID (.AM/PM), First dose on Mon06/10/23 at 2100, Until Discontinued, For oral administration ONLY, if route of administration is other than oral and alternative product must be ordered. 0900 (Not Given - Provider: Tete Tavera RN - Reason: Refused-Notify Provider)2100 (Not Given - Provider: Lindsay Lilly RN - Reason: Refused-Notify Provider - Comment: pt repoted loose stools today) 0900 (Not Given - Provider: Gail Vences RN - Reason: Refused-Notify Provider)2151 (Given - Provider: Padmini Patel RN) 103 (Given - Provider: Bryon Wills LPN) doxazosin (Cardura) tab 8 mg 8 mg, Oral, HS, First dose on 06/10/23 at 2200, Until Discontinued 2145 (Given - Provider: Lindsay Lilly RN) 2199 (Given - Provider: Padmini Patel RN) Enoxaparin (Lovenox) inj 40 mg 40 mg, Subcutaneous, Daily(AM), First dose on 06/11/23 at 0900, Until Discontinued, If patient is on warfarin, inform provider if daily INR value is 2 or greater! 0850 (Given - Provider: Tete Tavera RN) 0900 (Not Given - Provider: Gail Vences RN - Reason: Clinician Judgement-Notify Provider) 103 (Given - Provider: Bryon Wills LPN) Finasteride (Proscar) tab 5 mg 5 mg, Oral, Daily(AM), First dose on 06/11/23 at 0900, Until Discontinued 0851 (Given - Provider: Tete Tavera RN) 0925 (Given - Provider: Gail Vences RN) 1039 (Given - Provider: Bryon Wills LPN) fluticasone (Flonase) nasal inhaler 2 Garland 2 Garland, Each Nostril, Daily(AM), First dose on 06/11/23 at 0900, Until Discontinued, 50 mcg / Actuation 0849 (Given - Provider: Tete Tavera RN) 0900 (Not Given - Provider: Gail Vences RN - Reason: Refused-Notify Provider) 0900 (Not Given - Provider: Bryon Wills LPN - Reason: Refused-Notify Provider) fluticasone furoate-vilanterol (BREO ellipta) 100-25 MCG/ACT inhaler 1 Puff 1 Puff, Inhalation, RESPDAILY, First dose on Mon06/11/23 at 0700, Until Discontinued 0625 (Given - Provider: Robert Rankin, NET WPF DEVELOPER) 0755 (Given - Provider: Donna Bañuelos, CATERPILLAR OPERATOR) 0808 (Given - Provider: Rosibel Houston, NET WPF DEVELOPER) Furosemide (Lasix) inj 60 mg (COMPLETED) 60 mg, IV Push, ONCE, On Mon06/13/23 at 1130, For 1 dose 1110 (Given - Provider: Sandie Pickett, VEDA) Furosemide (Lasix) tab 20 mg 20 mg, Oral, Daily(AM), First dose on Mon06/13/23 at 0900, Until Discontinued 1039 (Given - Provider: Bryon Wills LPN) Furosemide (Lasix) tab 20 mg (COMPLETED) 20 mg, Oral, ONCE, On Mon06/12/23 at 1015, For 1 dose 1038 (Given - Provider: Gail Vences RN) Gabapentin (Neurontin) cap 400 mg 400 mg, Oral, QID(AM/NOON/PM/HS), First dose on Mon06/10/23 at 1800, Until Discontinued 0525 (Given - Provider: Rita Siu RN)1246 (Given - Provider: Tete Tavera RN)1744 (Given - Provider: Tete Tavera RN)2147 (Given - Provider: Lindsay Lilly RN) 0623 (Given - Provider: Lindsay Lilly RN)1247 (Given - Provider: Gail Vences RN)1731 (Given - Provider: Gail Vences RN)2152 (Given - Provider: Padmini Patel, VEDA) 0701 (Given - Provider: Jessica Langston, VEDA)1110 (Given - Provider: Sandie Pickett, VEDA) magnesium chloride ER (Mag-64) tab 128 mg 128 mg, Oral, Daily(AM), First dose on Mon06/11/23 at 0900, Until Discontinued, Each tablet contains 64 mg elemental Magnesium Due to various manufacturers, tablets labeled 70mg are considered to be equivalent 0851 (Given - Provider: Tete Tavera RN) 0925 (Given - Provider: Gail Vences RN) 1038 (Given - Provider: Bryon Wills LPN) omeprazole (PriLOSEC) cap 20 mg 20 mg, Oral, BID (.AM/PM), First dose on 06/10/23 at 2100, Until Discontinued, This med should NOT be Crushed or Chewed 0852 (Given - Provider: Tete Tavera RN)2146 (Given - Provider: Lindsay Lilly RN) 0925 (Given - Provider: Gail Vences RN)215 (Given - Provider: Padmini Patel RN) 1039 (Given - Provider: Bryon Wills LPN) oxygen GAS Inhalation, OXYGEN, First dose on 06/10/23 at 1730, Until Discontinued, Device/Managed by: Low Flow Device, Goal SPO2 (%): 88-94, Starting Device: Nasal Cannula, Initial Flow Rate (LPM): 2, Lowest Support: Nasal Cannula: Flow 0-6 LPM. Titrate up/down by 1 LPM., Titration Interval: Q2 minutes and as needed., Notify Provider: For sudden DECREASE in resting SPO2 to less than 85% and when escalating delivery device., 1.5 L to 2 L oxygen continuously (chronic oxygen) 0000 (Oxygen On - Provider: Rita Siu RN)0800 (Oxygen On - Provider: Tete Tavera RN)1600 (Oxygen On - Provider: Tete Tavera RN) 0000 (Oxygen On - Provider: Lindsay Lilly RN)0800 (Oxygen On - Provider: Gail Vences RN)1600 (Oxygen On - Provider: Gail Vences RN) 0000 (Oxygen On - Provider: Padmini Patel RN)0800 (Oxygen On - Provider: Bryon Wills LPN) Polyethylene Glycol 3350 (Miralax) oral powder 17 g 17 g, Oral, Daily(AM), First dose on 06/10/23 at 1730, Until Discontinued, Mix in 8 oz of water, juice, soda, coffee, or tea. 0849 (Given - Provider: Tete Tavera RN) 0900 (Not Given - Provider: Gail Vences RN - Reason: Refused-Notify Provider) 0900 (Not Given - Provider: Bryon Wills LPN - Reason: Refused-Notify Provider) potassium chloride 10 mEq in 100 mL ivpb LOCKED DOSE (COMPLETED) 10 mEq, Peripheral IV, Q1H, 2 doses, First dose on 06/11/23 at 0900, Last dose on 06/11/23 at 1000, Administer over 60 Minutes, Standard infusion duration is 60 minutes. 0847 (New Bag - Provider: Tete Tavera RN)0947 (Stopped - Provider: Lindsay Lilly RN)1007 (New Bag - Provider: Bryon Wills LPN)1107 (Stopped - Provider: Lindsay Lilly RN) potassium chloride 10 mEq in 100 mL ivpb LOCKED DOSE (COMPLETED) 10 mEq, Peripheral IV, Q1H, 1 dose, First dose on 06/12/23 at 0900, Administer over 60 Minutes, Standard infusion duration is 60 minutes. 0951 (New Bag - Provider: Gail Vences RN) potassium chloride ER tab 30 mEq 30 mEq, Oral, Daily(AM), First dose on 06/11/23 at 0900, Until Discontinued 0851 (Given - Provider: Tete Tavera RN) 0926 (Given - Provider: Gail Vences RN) 1038 (Given - Provider: Bryon Wills LPN) predniSONE (Deltasone) tab 5 mg 5 mg, Oral, Daily(AM), First dose on 06/11/23 at 0900, Until Discontinued 0850 (Given - Provider: Tete Tavera RN) 0925 (Given - Provider: Gail Vences RN) 1038 (Given - Provider: Bryon Wills LPN) sodium chloride 0.9 % flush peripheral piotr 3 mL 3 mL, IV Push, QSHIFT, First dose on 06/10/23 at 1715, Until Discontinued, Do not flush if lock, PICC, or central line not in place; IV infusing or unable to flush. 0000 (Given - Provider: Rita Siu RN)0800 (Not Given - Provider: Tete Tavera RN - Reason: Parameter(s) Not Met - Comment: fluids infusing)1600 (Given - Provider: Tete Tavera RN) 0000 (Given - Provider: Lindsay Lilly RN)0800 (Given - Provider: Gail Vences RN)1600 (Given - Provider: Gail Vences RN) 0000 (Given - Provider: Padmini Patel RN)0800 (Given - Provider: Bryon Wills LPN) Continuous Medication Order 06/11/2023 06/12/2023 06/13/2023 isolyte-S PH 7.4 1,000 mL with potassium chloride 40 mEq INFUSION (CANCELED) Intravenous, at 54.25 mL/hr Administer over 20 Hours, Stop after 1 L total (20 hours), CONTINUOUS, Starting on Mon06/10/23 at 1715, Until Mon06/11/23 at 1013 0158 (Rate Verify - Provider: Rita Siu RN)0642 (Rate Verify - Provider: Rita Siu RN)1013 (Stopped - Provider: Tete Tavera RN) isolyte-S pH 7.4 infusion (CANCELED) Intravenous, at 50 mL/hr, Plasma-LYTE 148, isolyte-S, and isolyte-S pH 7.4 are considered equivalent - including for MAR barcode scanning., CONTINUOUS, Starting on Mon06/12/23 at 0845, Until Mon06/12/23 at 1340 0947 (New Bag - Provider: Gail Vences RN)1340 (Stopped - Provider: Gail Vences RN) PRN Medication Order 06/11/2023 06/12/2023 06/13/2023 albuterol-ipratropium (Duoneb) inhalation solution 3 mL 3 mL, Nebulizer, Q4H PRN Dyspnea, Starting on Mon06/10/23 at 2030, Until Mon06/13/23 at 1745, 3 mL = 0.5 mg ipratropium/ 2.5 mg albuterol guaiFENesin-dm (Robitussin DM) oral syrup 10 mL 10 mL, Oral, Q6H PRN Cough, Starting on Mon06/10/23 at 1640, Until Mon06/13/23 at 1745 HYDROmorphone (Dilaudid) inj 0.25 mg 0.25 mg, IV Push, Q30 MIN PRN Pain, Severe, Pain, Breakthrough, Starting on 06/10/23 at 1222, Until Mon06/13/23 at 1745, For 3 doses LORAzepam (Ativan) tab 0.5 mg 0.5 mg, Oral, Q12H PRN Anxiety, Starting on 06/10/23 at 1639, Until Mon06/13/23 at 1745 melatonin tab 3 mg 3 mg, Oral, HS PRN Insomnia, Starting on 06/10/23 at 1640, Until Mon06/13/23 at 1745 2147 (Given - Provider: Lindsay Lilly RN) ondansetron (Zofran) inj 4 mg 4 mg, IV Push, Q6H PRN Nausea, Vomiting, Starting on 06/10/23 at 1638, Until Mon06/13/23 at 1745 prochlorperazine (Compazine) inj 10 mg 10 mg, IV Push, Q6H PRN Nausea, Vomiting, use if zofran ineffective, Starting on 06/10/23 at 1638, Until Mon06/13/23 at 1745 senna-docusate (Senokot-S) 1 Tablet 1 Tablet, Oral, DAILY PRN Constipation, Starting on 06/10/23 at 1640, Until Mon06/13/23 at 1745 documented in this encounter Additional Health Concerns Infection Onset Date Last Indicated Resolved Time Respiratory Rule-Out 06/10/2023 06/10/2023 023 1:50 PM EST COVID-19 Rule-Out 06/10/2023 06/10/2023 06/10/2023 1:50 PM EST documented as of this encounter Advance [...] the patient have Health Care Power of Dipper Operator? No Healthcare Agents on File Name Relationship Healthcare Agent Relationship Communication Soledad Peters Spouse Health Care Agen t (per Health Care Power of Dipper Operator document) [email or web address] Huma Hernández Adult Child First Alternate Health Care Agent (per Health Care Power of Dipper Operator document) [email or web address] Care Teams Physician Coding Specialist Relationship Specialty Start Date End Date El Mcgee III, MD [address] [place] [address] PCP - General Family Medicine 08/11/18 documented as of this encounter
--- OUTSIDE RECORDS SUMMARY | 2023-07-04 20:38 | External Medical Summary ---
Author Name Unknown Address Unknown Organization [facility] [address] [place] [id number] Laboratory Report Ordering Provider Test Date Status RAMONITA FARR 06/10/2023 22:56:00 Final Observation Date Value Abnormality Reference (Units ) Status BUN 06/10/2023 22:56:00 12 6-20 (mg/dL) Final Creatinine 06/10/2023 22:56:00 0.8 0.6-1.2 (mg/dL) Final Glomerular filtration rate/1.73 sq M.predicted [Volume Rate/Area] in Serum, Plasma or Blood by Creatinine-based formula (CKD-EPI) 06/10/2023 22:56:00 87 >=60 (mL/min) Final eGFR is calculated based on the CKD-EPI 2020 equation SODIUM 06/10/2023 22:56:00 138 135-146 (m mol/L) Final Potassium 06/10/2023 22:56:00 3.6 3.5-5.1 (m mol/L) Final Cl 06/10/2023 22:56:00 101 98-107 (mm ol/L) Final CO2 06/10/2023 22:56:00 27 22-32 (mmo l/L) Final Anion gap 06/10/2023 22:56:00 10 7-15 (mmol /L) Final Glucose 06/10/2023 22:56:00 106 70-120 (mg /dL) Final Calcium 06/10/2023 22:56:00 7.9 Below low normal 8.4 -10.2 (mg/dL) Final Performing Location [facility] [address] [place] [id number]
--- OUTSIDE RECORDS SUMMARY | 2023-07-04 20:38 | External Medical Summary | Summary of Care ---
Author Name Unknown Organization [facility] Address [address] [place] [address] Phone [phone] Care Team Providers Care Service Crew Supervisor Name Role Phone Everardo SHAFER MD, Mirza Zeng Primary Care Provider [phone] Reason for Visit * Reason Onset Date Comments [facility]: Maintenance 06/13/2023 Encounter Details Date Type Department Care Team (Late st Contact Info) Description 06/13/2023 Telephone [facility], [facility] [address] [place] [address] [facility], Nurse [facility] [address] [place] [phone] [facility]: Maintenance Allergies Active Allergy [...] failure managing provider or [facility] community case manager 1 Each 0 9 Suspended Additional Information aspirin enteric coated 81 MG TBECIndications:H TN, goal below 140/90 Take one pill daily 100 Tab 3 0 Suspended Additional Information Patient taking differently:, Take one pill daily,Indications: blood pressure, Reported on 05/02/2022 zinc gluconate 50 MG Tablet Take 1 Tablet by mouth in the morning. 0 Suspended Magnesium 250 MG Tablet Take 1 Tablet by mouth in the morning. 0 Suspended Calcium 200 MG Tablet Take 200 mg by mouth daily. 0 Suspended oxygen IN GASIndications:Ch ronic respiratory failure with hypoxia (HCC),PHT (pulmonary hypertension) (HCC) 1.5 lpm bled into CPAP and with activity/exertio n 1 Each 1 Suspended Additional Information Potassium Chloride ER 10 MEQ Oral Tablet Extended Release Take 3 Tablets by mouth in the morning. 0 Suspended Spironolactone 25 MG Oral Tablet (Aldactone)Indica tions:HTN, goal below 140/90,Chronic diastolic heart failure (HCC) Take 1/2 tablet daily 45 Tablet 3 3 Suspended Additional Information Prolia 60 MG/ML Subcutaneous Solution Prefilled Syringe (Denosumab) INJECT 60 MG (1 SYRINGE) UNDER THE SKIN EVERY 6 MONTHS 1 mL 1 3 10/07/19 24 Suspended Additional Information Benzonatate 100 MG Oral CapsuleIndication s:Bronchitis, complicated,Viral URI with cough Take 1-2 capsules three times daily as needed for cough. Do not cut, crush, or chew. 40 Capsule 1 3 Suspended Additional Information Albuterol Sulfate HFA 108 (90 Base) MCG/ACT Inhalation Aerosol SolutionIndicatio ns:Acute bronchitis, antibiotics not indicated Inhale 2 Puffs by mouth every 4 hours as needed for Wheezing. 18 g 3 3 Suspended Additional Information Fluticasone Furoate-Vilantero l 100-25 MCG/ACT Inhalation Aerosol Powder Breath Activated (BREO ellipta)Indicatio ns:Restrictive lung disease INHALE ONE PUFF BY MOUTH EVERY DAY 180 Each 3 3 11/01/19 24 Suspended Additional Information Gabapentin 400 MG Oral Capsule (Neurontin) TAKE ONE CAPSULE BY MOUTH FOUR TIMES A DAY 400 Capsule 3 3 10/13/19 24 Suspended Additional Information Benazepril HCl 40 MG Oral Tablet TAKE ONE TABLET BY MOUTH EVERY DAY 90 Tablet 3 3 09/04/19 24 Suspended Additional Information Atorvastatin Calcium 20 MG Oral Tablet (Lipitor) TAKE ONE TABLET BY MOUTH EVERY DAY 90 Tablet 3 3 09/10/19 24 Suspended Additional Information Doxazosin Mesylate 8 MG Oral Tablet TAKE ONE TABLET BY MOUTH AT BEDTIME 90 Tablet 3 3 08/12/19 24 Suspended Additional Information Finasteride 5 MG Oral Tablet (Proscar)Indicati ons:BPH with obstruction/lower urinary tract symptoms TAKE ONE TABLET BY MOUTH EVERY MORNING 90 Tablet 3 3 08/12/19 24 Suspended Additional Information Atenolol 50 MG Oral Tablet (Tenormin)Indicat ions:HTN, goal below 140/90,PVC (premature ventricular contraction) TAKE ONE TABLET BY MOUTH EVERY MORNING AND TAKE ONE-HALF TABLET IN THE EVENING 135 Tablet 3 3 02/08/20 24 Suspended Additional Information Diclofenac Sodium 1 % External Gel (Voltaren) APPLY 4 GRAMS TOPICALLY TO UPPER/LOWER BACK TWO TIMES A DAY NEEDED FOR PAIN 800 g 0 3 Suspended Additional Information Ipratropium-Albut silvina 0.5-2.5 (3) MG/3ML Inhalation Solution (Duoneb)Indicatio ns:Wheezing,Bronc hitis, complicated INHALE 1 VIAL (3ml) IN NEBULIZER 4 TIMES A DAY. 1080 mL 1 3 Suspended Additional Information Omeprazole 20 MG Oral Capsule Delayed Release (PriLOSEC) TAKE ONE CAPSULE BY MOUTH TWICE A DAY 180 Capsule 3 3 04/03/20 24 Suspended Additional Information Fluticasone Propionate 50 MCG/ACT Nasal Suspension (Flonase) ADMINISTER TWO SPRAYS IN EACH NOSTRIL EVERY MORNING 48 g 2 3 04/14/20 24 Suspended Additional Information amLODIPine Besylate 5 MG Oral Tablet (Norvasc)Indicati ons:HTN, goal below 140/90 TAKE ONE TABLET BY MOUTH EVERY DAY 100 Tablet 1 3 04/23/20 24 Suspended Additional Information Furosemide 20 MG Oral Tablet (Lasix)Indication s:HTN, goal below 140/90,Chronic diastolic heart failure (HCC) TAKE ONE TABLET BY MOUTH EVERY MORNING. MAY TAKE ONE ADDITIONAL TABLET NEEDED FOR FLUID RETENTION, WEIGHT GAIN 100 Tablet 3 3 04/24/20 24 Suspended Additional Information busPIRone HCl 5 MG Oral Tablet (Buspar) Take 1 Tablet by mouth in the morning and 1 Tablet before bedtime. 60 Tablet 6 3 Suspended Additional Information predniSONE 5 MG Oral Tablet (Deltasone) TAKE ONE TABLET BY MOUTH DAILY 100 Tablet 0 3 04/25/20 24 Suspended Additional Information CPAP 10 cm every night at bedtime. W/oxygen 1.5 lpm bled into cpap 0 Suspended Acetaminophen 325 MG Oral Tablet (Tylenol) Take 3 Tablets by mouth in the morning and 3 Tablets at noon and 3 Tablets before bedtime. Do all this for 10 days. 90 Tablet 0 3 06/13/20 23 Discontinued Docusate Sodium 100 MG Oral Capsule (Colace) Take 1 Capsule by mouth in the morning and 1 Capsule before bedtime. 30 Capsule 0 3 Suspended Additional Information Polyethylene Glycol 3350 17 GM Oral Packet (Miralax) Take 1 Packet by mouth in the morning. 14 Each 0 3 Suspended Additional Information traMADol HCl 50 MG Oral Tablet (Ultram)Indicatio ns:Prostate cancer metastatic to bone (HCC) Take 1 Tablet by mouth every 6 hours as needed for Pain, Severe. Take 1 tablet every 6 hours around the clock to control pain. 60 Tablet 0 3 Suspended Additional Information Baclofen 5 MG Oral Tablet (Lioresal)Indicat ions:Metastases to the liver (HCC) Take 1 Tablet by mouth in the morning and 1 Tablet in the evening. 60 Tablet 3 3 Suspended Additional Information Metoclopramide HCl 5 MG Oral Tablet (Reglan)Indicatio ns:Metastases to the liver (HCC) Take 1 or 2 tablets 3 times a day before meals to control nausea. 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 10/18 History [...] lower extremities 11/24/2008 09/22/2015 Overview: seen at [facility] ER Anemia 05/13/2008 03/21/2017 Osteoarthritis of [...] mRNA, LNP-s, No Pre serve, 2-Dose Series (Archsy) 08/30/2020,08/02/2020 Pneumococcal Conjugate Vacc, 13 Valent (Prevnar) [...] Katelynn Goetz pt needs to rescheduled missed [facility] visit with Nadine Moreno Pt is scheduled for 06/23 12:30 pm with Jus Toledo Scheduled Barbara Moreno for 06/29 9:00 am documented in this encounter Plan of Treatment Upcoming Encounters Date Type Department Care Team (Late st Contact Info) Description 06/15/2023 9:00 AM EST Hospital Encounter OR [facility], Operating Room, [facility] - 4th Floor [address] [place] [address] [facility], In And Out Surgery [address] [place] [address] 06/15/2023 9:00 AM EST Appointment Radiology, [facility] [address] [place] [address] 06/15/2023 9:00 AM EST - 06/15/2023 10:00 AM EST Surgery OR [facility], Operating Room, [facility] - 4th Floor [address] [place] [address] [facility], In And Out Surgery [address] [place] [address] PRE / POST CARE 06/20/2023 11:00 AM EST Office Visit Family Practice [facility] [address] [place], [place] [address] Mirza Mcgee III, MD [address] [place] [address] 06/23/2023 12:30 PM EST [facility] Visit [facility] [address] [place] [address] Emeli Toledo RN [address] [place] [address] 06/28/2023 1:00 PM EST Office Visit Palliative Medicine [facility] [address] [place], [place] [address] Valeria Nath MD [address] [place] [address] 06/29/2023 9:00 AM EST [facility] Visit [facility] [address] [place] [address] Amador Moreno PA-C [address] [place] [address] 07/06/2023 12:40 PM EST Office Visit Podiatry [facility] [address] [place] [address] Felicita Copeland DPM [address] [place] [address] 07/27/2023 12:40 PM EST Office Visit Gastroenterology, [facility] [address] [place] [phone] Trina Plaza DO [address] [place] [address] 08/03/2023 1:30 PM EST Office Visit Urology [facility] [place] [address] [place] [address] [place] [address] Ryan Cunningham MD [address] [place] [address] 09/11/2023 2:00 PM EDT Appointment Radiology, [address] [phone] 09/11/2023 2:30 PM EDT PulmDiagnostic Pulmonary Function Lab [facility] [address] [facility] [place] [address] [place], [address] [place] [address] 09/11/2023 3:00 PM EDT Office Visit Pulmonary Medicine [facility] [address] [place] [phone] Saul Moscoso MD [address] [facility] [place] [address] 10/25/2023 2:40 PM EDT Office Visit Family Practice [facility] [address] [facility] [place] [address] Mirza Mcgee III, MD [address] [facility] [place] [address] 05/02/2024 1:00 PM EST Office Visit Sleep Disorders, [address] [place] [address] Alesha John MD [address] [facility] [address] Scheduled Procedures Name Priority Associated [...] Screening 02/03/2024 02/02/2023 CKD PHOS USE SMARTSET 51072 06/12/202405/26, 06/11/2023, 06/10/2023, Additional history exists O2 ASSESSMENT COMPLETED IN PAST YEAR FOR COPD 06/12/2024 06/13/2023 CKD HGB USE SMARTSET 64826 06/13/202406/13, 06/13/2023, 06/12/2023, Additional history exists Pneumococcal Vaccine: 65+ Years Completed 09/22/2015, 08/21/2001 VITAMIN D LEVEL ONCE IN A LIFETIME-USE SMARTSET# 57348 Completed 10/26/2022, 10/11/2021, 01/01/2019, Additional history exists Influenza Vaccine (FLU shot) Completed , 03/31/2022, 03/23/2021, Additional history exists GARDASIL-HPV IMMUNIZATION SERIES Aged Out No longer eligible based on patient's age to complete this topic MENINGOCOCCAL (MENACTRA/MENVEO) Aged Out No longer eligible based on patient's age to complete this topic documented as of this encounter Medical Devices Implanted Type Area Diesel Mechanic Helper Device Identifier Shelf Expiration Date Model / Serial / Lot Femur Nexgn E Right - [id number] Implanted:Qty: 1 on 05/12/2008 [place] [facility] [place]: Knee [employer] 02/24/2018 [id number] [id number] / / [id number] Femur Nexgn E Left - [id number] Implanted:Qty: 1 on 11/19/2008 [place] [facility] [place]: Knee [employer] [id number] -[id number] / / [id number] Sut Steel 6 M654g - [id number] Implanted:Qty: 6 on 07/11/2011 at [place] [facility] N/A: Chest DO NOT USE 01/09/2016 / / [id number] Akre[employer] A[employer] Micro Incision Lens Mi60l Implanted:Qty: 1 on 11/07/2013 at OR [facility] Right: Eye 06/25/2016 [id number] / [id number] / [id number] documented as of this encounter Advance Directives [...] the patient have Health Care Power of Repair Order Clerk? No Healthcare Agents on File Name Relationship Healthcare Agent Relationship Communication Soledad Peters Spouse Health Care Agen t (per Health Care Power of Repair Order Clerk document) [email or web address] Huma Hernández Adult Child First Alternate Health Care Agent (per Health Care Power of Repair Order Clerk document) [email or web address] Care Teams Service Crew Supervisor Relationship Specialty Start Date End Date Mirza Mcgee III, MD [address] [facility] [place] [address] PCP - General Family Medicine 08/11/18 documented as of this encounter
--- OUTSIDE RECORDS SUMMARY | 2023-07-04 20:38 | External Medical Summary ---
Author Name Unknown Address Unknown Organization K1F:LABORATORY [facility] - [address] [place] [address] Laboratory Report Ordering Provider Test Date Status RAMONITA FARR 06/11/2023 05:07:00 Final Observation Date Value Abnormality Reference (Units ) Status WBC, Total 06/11/2023 05:07:00 9.39 4.00-10.80 (K/uL) Final RBC 06/11/2023 05:07:00 4.42 4.50-5.25 (M/uL) Final Hemoglobin 06/11/2023 05:07:00 13.3 Below low normal 14.0-16.8 (g/dL) Final HCT 06/11/2023 05:07:00 39.7 Below low normal 40.0-48.4 (%) Final MCV 06/11/2023 05:07:00 89.8 82.0-99.5 (fL) Final MCH 06/11/2023 05:07:00 30.1 27.0-34.0 (pg) Final MCHC 06/11/2023 05:07:00 33.5 32.0-36.0 (g/dL) Final RDW 06/11/2023 05:07:00 13.5 11.5-15.5 (%) Final Platelets 06/11/2023 05:07:00 155 140-400 (K/uL) Final MPV 06/11/2023 05:07:00 11.1 6.6-11.1 (fL) Final Nucleated erythrocytes/100 leukocytes [Ratio] in Blood by Automated count 06/11/2023 05:07:00 0 <=0 (/100 WBCs) Final Performing Location LABORATORY [facility] - [address] [place] [address]
--- OUTSIDE RECORDS SUMMARY | 2023-07-04 20:38 | External Medical Summary ---
Author Name Unknown Address Unknown Organization K1F:LABORATORY [facility] - [address] [place] [address] Laboratory Report Ordering Provider Test Date Status IVETTSALVADOR 06/12/2023 06:10:00 Final Observation Date Value Abnormality Reference (Units ) Status Phosphate 06/12/2023 06:10:00 3.1 2.5-4.8 (m g/dL) Final Performing Location LABORATORY [facility] - [address] [place] [address]
--- OUTSIDE RECORDS SUMMARY | 2023-07-04 20:38 | External Medical Summary ---
Author Name Unknown Address Unknown Organization K1F:LABORATORY [facility] - [address] [place] [address] Laboratory Report Ordering Provider Test Date Status RAMONITA FARR 06/11/2023 05:07:00 Final Observation Date Value Abnormality Reference (Units ) Status Phosphate 06/11/2023 05:07:00 2.9 2.5-4.8 (m g/dL) Final Performing Location LABORATORY [facility] - [address] [place] [address]
--- OUTSIDE RECORDS SUMMARY | 2023-07-04 20:38 | External Medical Summary | Summary of Care ---
Author Name Unknown Organization [facility] Address [address] [place] [address] Phone [phone] Care Team Providers Care Telemetry Registered Nurse Name Role Phone Everardo SHAFER MD, Mirza Zeng Primary Care Provider [phone] Reason for Visit * Reason Onset Date Comments [facility]: Maintenance 06/13/2023 Encounter Details Date Type Department Care Team (Late st Contact Info) Description 06/13/2023 Telephone [facility], [facility] [address] [place] [phone] [facility], Nurse [facility] [address] [place] [phone] [facility]: Maintenance Allergies Active Allergy [...] managing provider or [facility] case folder 1 Each 0 01/30/2019 Suspended Additional Information [...] DNR (do not resuscitate) 05/21/2023 Constipation 05/21/2023 [place] (hard of hearing) 05/21/2023 Poor vision 05/21/2023 [...] vein thrombosis) 09/22/2015 PMR (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) 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 10/18 History [...] mRNA, LNP-s, No Pre serve, 2-Dose Series (Hightail) 08/30/2020,08/02/2020 Pneumococcal Conjugate Vacc, 13 Valent (Prevnar) [...] Katelynn Goetz pt needs to rescheduled missed [facility] visit with Nadine Moreno Pt is scheduled for 06/23 12:30 pm with Jus Toledo Scheduled Barbara Moreno for 06/29 9:00 am documented in this encounter Plan of Treatment Upcoming Encounters Date Type Department Care Team (Late st Contact Info) Description 06/15/2023 9:00 AM EST Hospital Encounter [facility], Operating Room, [facility] - 4th Floor [address] [place] [address] [address] [facility], In And Out Surgery [address] [place] [address] 06/15/2023 9:00 AM EST Appointment Radiology, [facility] [address] [place] [place] [address] 06/15/2023 9:00 AM EST - 06/15/2023 10:00 AM EST Surgery OR [facility], Operating Room, [facility] - 4th Floor [address] [place] [address] [facility], In And Out Surgery [address] [place] [address] PRE / POST CARE 06/23/2023 12:30 PM EST Home Visit [facility] [place], [facility] [address] [place] [address] Emeli Toledo, RN [address] [place] [address] 06/29/2023 9:00 AM EST [facility], [facility] [address] [place] [address] Amador Moreno PA-C [address] [place] [address] 07/06/2023 12:40 PM EST Office [facility] [place] [address] Felicita Copeland DPM [address] [place] [address] 07/27/2023 12:40 PM EST [facility] [address] [facility] [phone] Trina Plaza DO [address] [place] [address] 08/03/2023 1:30 PM EST Office Visit Urology [place] [address] [place] [address] Ryan Cunningham MD [address] [place] [address] 09/11/2023 2:00 PM EDT Appointment Radiology, [facility] [address] [place] [place] [phone] 09/11/2023 2:30 PM EDT PulmDiagnostic Pulmonary Function Lab [facility] [place] [address] [place] [address] [place], [address] [place] [address] 09/11/2023 3:00 PM EDT Office Visit Pulmonary Medicine [facility] [place] [address] [place] [phone] Saul Moscoso MD [address] [place] [address] 10/25/2023 2:40 PM EDT Office Visit Family Practice [facility] [address] [place] [address] Mirza Mcgee III, MD [address] [facility] [place] [address] 05/02/2024 1:00 PM EST Office Visit Sleep Disorders, [facility] [address] [facility] [place] [address] Alesha John MD 400 [place] [address] Scheduled Procedures Name Priority Associated Diagnoses Date/Ti [...] Screening 02/03/2024 02/02/2023 CKD PHOS USE SMARTSET 30545 06/12/202405/26, 06/11/2023, 06/10/2023, Additional history exists O2 ASSESSMENT COMPLETED IN PAST YEAR FOR COPD 06/12/2024 06/13/2023 CKD HGB USE SMARTSET 98238 06/13/202406/13, 06/13/2023, 06/12/2023, Additional history exists Pneumococcal Vaccine: 65+ Years Completed 09/22/2015, 08/21/2001 VITAMIN D LEVEL ONCE IN A LIFETIME-USE SMARTSET# 77416 Completed 10/26/2022, 10/11/2021, 01/01/2019, Additional history exists Influenza Vaccine (FLU shot) Completed , 03/31/2022, 03/23/2021, Additional history exists GARDASIL-HPV IMMUNIZATION SERIES Aged Out No longer eligible based on patient's age to complete this topic MENINGOCOCCAL (MENACTRA/MENVEO) Aged Out No longer eligible based on patient's age to complete this topic documented as of this encounter Medical Devices Implanted Type Area Metalworker Device Identifier Shelf Expiration Date Model / Serial / Lot Femur Nexgn E Right - [id number] Implanted:Qty: 1 on 05/12/2008 at [place] [facility] Right: Knee [employer] 02/24/2018 [id number] -[id number] / / [id number] Femur Nexgn E Left - [id number] Implanted:Qty: 1 on 11/19/2008 at [place] [facility] Left: Knee [employer] 00-5996-015 -[id number] / / [id number] Sut Steel 6 M654g - [id number] Implanted:Qty: 6 on 07/11/2011 at [place] [facility] N/A: Chest DO NOT USE 01/09/2016 / / [id number] Akre[employer] A[employer] Micro Incision Lens Mi60l Implanted:Qty: 1 on 11/07/2013 at OR [facility] Right: Eye 06/25/2016 [id number] / [id number] / [id number] documented as of this encounter Advance Directives [...] the patient have Health Care Power of Crane Chaser? No Healthcare Agents on File Name Relationship Healthcare Agent Relationship Communication Soledad Peters Spouse Health Care Agen t (per Health Care Power of Crane Chaser document) [email or web address] [email or web address] Adult Child First Alternate Health Care Agent (per Health Care Power of Crane Chaser document) [email or web address] Care Teams Telemetry Registered Nurse Relationship Specialty Start Date End Date Mirza Mcgee III, MD [address] [place] [address] PCP - General Family Medicine 08/11/18 documented as of this encounter
--- OUTSIDE RECORDS SUMMARY | 2023-07-04 20:38 | External Medical Summary ---
Author Name Unknown Address Unknown Organization K1F:LABORATORY [facility] - [address] [place] [address] Laboratory Report Ordering Provider Test Date Status JEAN-PAUL HINOJOSA 06/13/2023 05:31:00 Final Observation Date Value Abnormality Reference (Units ) Status BUN 06/13/2023 05:31:00 13 6-20 (mg/dL) Final Creatinine 06/13/2023 05:31:00 0.9 0.6-1.2 (mg/dL) Final Glomerular filtration rate/1.73 sq M.predicted [Volume Rate/Area] in Serum, Plasma or Blood by Creatinine-based formula (CKD-EPI) 06/13/2023 05:31:00 84 >=60 (mL/min) Final eGFR is calculated based on the CKD-EPI 2020 equation SODIUM 06/13/2023 05:31:00 140 135-146 (m mol/L) Final Potassium 06/13/2023 05:31:00 3.2 Below low normal 3.5 -5.1 (mmol/L) Final Cl 06/13/2023 05:31:00 102 98-107 (mm ol/L) Final CO2 06/13/2023 05:31:00 30 22-32 (mmo l/L) Final Anion gap 06/13/2023 05:31:00 8 7-15 (mmol /L) Final Glucose 06/13/2023 05:31:00 100 70-120 (mg /dL) Final Calcium 06/13/2023 05:31:00 8.4 8.4-10.2 ( mg/dL) Final Performing Location LABORATORY [facility] - [address] [place] [address]
--- OUTSIDE RECORDS SUMMARY | 2023-07-04 20:39 | External Medical Summary ---
Author Name Unknown Address Unknown Organization K1F:LABORATORY [facility] - [address] [place] [address] Laboratory Report Ordering Provider Test Date Status BEAU SMITH 06/10/2023 12:04:46 Final Observation Date Value Abnormality Reference (Units ) Status WBC, Total 06/10/2023 12:04:46 9.72 4.00-10.80 (K/uL) Final RBC 06/10/2023 12:04:46 5.20 4.50-5.25 (M/uL) Final Hemoglobin 06/10/2023 12:04:46 15.3 14.0-16.8 (g/dL) Final HCT 06/10/2023 12:04:46 46.0 40.0-48.4 (%) Final MCV 06/10/2023 12:04:46 88.5 82.0-99.5 (fL) Final MCH 06/10/2023 12:04:46 29.4 27.0-34.0 (pg) Final MCHC 06/10/2023 12:04:46 33.3 32.0-36.0 (g/dL) Final RDW 06/10/2023 12:04:46 13.2 11.5-15.5 (%) Final Platelets 06/10/2023 12:04:46 172 140-400 (K/uL) Final MPV 06/10/2023 12:04:46 11.1 6.6-11.1 (fL) Final Nucleated erythrocytes/100 leukocytes [Ratio] in Blood by Automated count 06/10/2023 12:04:46 0 <=0 (/100 WBCs) Final Performing Location LABORATORY [facility] - [address] [place] [address]
--- OUTSIDE RECORDS SUMMARY | 2023-07-04 20:39 | External Medical Summary ---
Author Name Unknown Address Unknown Organization K1F:LABORATORY [facility] - [address] [place] [address] Laboratory Report Ordering Provider Test Date Status BEAU SMITH 06/10/2023 12:04:46 Final Observation Date Value Abnormality Reference (Units ) Status Magnesium 06/10/2023 12:04:46 2.1 1.5-2.6 (m g/dL) Final Performing Location LABORATORY [facility] - [address] [address]
--- OUTSIDE RECORDS SUMMARY | 2023-07-04 20:39 | External Medical Summary | Summary of Care ---
Author Name Unknown Organization [facility] Address [address] [place] [address] Phone [phone] Care Team Providers Care Bioinformatics Specialist Name Role Phone Everardo SHAFER MD, Mirza Zeng Primary Care Provider [phone] Reason for Visit * Reason Comments Follow Up Encounter Details Date Type Department Care Team (Late st Contact Info) Description 06/08/2023 1:30 PM EST Telemedicine Hematology/Oncology, [facility] [address] [place] [address] Cayden Sandoval MD [address] [place] [address] Metastases to the liver (HCC)*; Prostate cancer metastatic to bone (HCC) Allergies Active Allergy Reactions Criticality Noted Date Comments Amoxicillin Rash 09/27/2005 At time of knee replacement Oxycodone Other (Please comment) 10/11/2012 Severe mental change Oxycodone-Acetaminophe n Other (Please comment) 03/15/2010 Severe mental change documented as of this encounter (statuses as of 06/08/2023) Medications Medication Sig Dispensed Refills Start Date End Date Status PRESERVISION AREDS 2 PO CAPS one by mouth twice a day 0 Active DIURETIC TITRATION PLAN If no improvement on day 3, contact heart failure managing provider or [facility] at home test case developer 1 Each 0 01/30/2019 Active aspirin enteric coated 81 MG TBECIndications:H [...] and with activity/exertio n 1 Each 03/31/2021 Active Potassium Chloride ER [...] 10/07/2022 4 Active Benzonatate 100 MG Oral CapsuleIndication s:Bronchitis, [...] Wheezing. 18 g 3 12/26/2022 Active Fluticasone Furoate-Vilantero l 100-25 MCG/ACT Inhalation [...] 4 Active Finasteride 5 MG Oral Tablet (Proscar)Indicati ons:BPH with obstruction/lower urinary tract symptoms TAKE ONE TABLET BY MOUTH EVERY MORNING 90 Tablet 3 08/01/2022 4 Active Atenolol 50 MG Oral Tablet (Tenormin)Indicat ions:HTN, goal below 140/90,PVC (premature ventricular contraction) TAKE ONE TABLET BY MOUTH EVERY MORNING AND TAKE ONE-HALF TABLET IN THE EVENING 135 Tablet 3 02/08/2023 4 Active Diclofenac Sodium 1 % External Gel (Voltaren) APPLY 4 GRAMS TOPICALLY TO UPPER/LOWER BACK TWO TIMES A DAY NEEDED FOR PAIN 800 g 0 02/24/2023 Active Ipratropium-Albut silvina 0.5-2.5 (3) MG/3ML Inhalation [...] 4 Active Furosemide 20 MG Oral Tablet (Lasix)Indication [...] 06/08/2023 Active Baclofen 5 MG Oral Tablet (Lioresal)Indicat ions:Metastases to the liver (HCC) Take 1 Tablet by mouth in the morning and 1 Tablet in the evening. 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 90 Tablet 3 06/08/2023 Active Baclofen 5 MG Oral Tablet (Lioresal) Take 1 Tablet by mouth in the morning and 1 Tablet in the evening. 30 Tablet 0 05/27/2023 3 Discontinue d(Refill) traMADol HCl 50 MG Oral Tablet (Ultram)Indicatio ns:Prostate cancer metastatic to bone (HCC) Take 1 Tablet by mouth every 8 hours as needed for Pain, Severe. 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 11/14/2017 Senile osteoporosis 06/28/2017 Prostate cancer metastatic to bone 01/11/2016 History of DVT (deep vein thrombosis) 09/22/2015 PMR (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) 10/18/2012 USP current use of systemic steroids 10/18 History [...] as of this encounter (statuses as of 06/08/2023) Resolved Problems Problem Noted Date Diagnosed Date [...] 03/07/2018 Bilateral leg edema 02/26/2018 04/14/20 23 Hypokalemia 02/26/2018 10/09/2018 Chronic nonspecific lung disease 08/16/2017 02/13/2018 Hodgkin [...] lower extremities 11/24/2008 09/22/2015 Overview: seen at [facility] ER Anemia 05/13/2008 03/21/2017 Osteoarthritis of [...] obstruction 2 08/23/2018 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 [facility] 02/2019 Overview: knees documented as of this encounter (statuses as of 06/08/2023) Immunizations Name Administration Dates Next Due COVID-19 mRNA, LNP-s, No Pre serve, 2-Dose Series (Interview Master) 08/30/2020,08/02/2020 Pneumococcal Conjugate Vacc, 13 Valent (Prevnar) [...] Information Value Date Recorded Sex Assigned at Not on file Gender Identity Not on file Sexual Orientation Not on file Job Start Date Occupation Industry Not on [...] (15 years old or older) Yes 05/21/20 Cognitive Status Response Date of Assessm ent Because of a physical, menta l, or emotional condition, do you have serious difficulty concentrating, remembering, or making decisions? (5 years old or older) No 05/21/2023 documented as of this encounter Progress Notes * Cayden Sandoval MD - 06/08/2023 1:30 PM EST Images from the original note were not included. MEDICAL ONCOLOGY TELEPHONE NOTE PATIENT NAME: Seferino Morales Date of Call: 06/07/2023 Consent: After connecting to the patient via telephone, the patient was identified by name and date of . Patient was then informed that this was a telephone call only visit. The patient agreed to participate. This is an established patient evaluated in my specialty within the past three years yes Visit Disposition: Routine follow-up Total call duration was 22 minutes. HPI: 88-year-old white male called for followup after discovery of abnormal CT scan of the abdomen to discuss PET scan done 06/02/2023. 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 On 01/04/2016 patient was diagnosed by TRUS with carcinoma of the prostate, 4 of 12 cores positive,Atkinson score 3+3=6, diagnosed with bone metastases in June 2020 treat with Depo-Lupron, last injection about 18 months prior to this visit. Patient is primary problem recently has been increasing discomfort involving the right lateral backwhich improves with postural changes. He denies worsening abdominal swelling and has suffered with easy satiety and weight loss of about 10 lb over the previous 1 month. He denies nausea, vomiting, diarrhea, fever, or night sweats. Patient denies urinary frequency, nocturia, or urinary hesitancy. Patient also denies melena, hematochezia, hematuria, epistaxis, hemoptysis, or dark-colored urine. Hewas recently treated with Diflucan for esophagitis secondary to Sameera. Per telephone call today, patient is not eating or drinking and was seen in the hospital recently for fecal impaction. He continues on gabapentin and was started on baclofen and tramadol with improvement in pain. He still feels nauseated without fever, night sweats, lower extremity swelling or redness, chest pain, PND, orthopnea, or palpitations. 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 LLE s/p TKA:3-6M coumadin Pneumonia Prostate cancer (HCC) 01/11/2016 Pulmonary arterial hypertension (HCC) Retinal edema 04/01/2010 Sleep apnea, obstructive SPINAL STENOSIS Mild L4-5 11/28/2007 Vitreous degeneration 03/07/02 os Current Outpatient Medications Medication Sig Dispense Refill PRESERVISION AREDS 2 PO CAPS one by mouth twice a day DIURETIC TITRATION PLAN If no improvement on day 3, contact heart failure managing provider or [facility] at home test case developer 1 Each 0 aspirin enteric coated 81 MG TBEC Take one pill daily (Patient taking differently: Take one pill daily) 100 Tab 3 zinc gluconate 50 MG Tablet Take 1 Tablet by mouth in the morning. Magnesium 250 MG Tablet Take 1 Tablet by mouth in the morning. Calcium 200 MG Tablet Take 200 mg by mouth daily. oxygen IN GAS 1.5 lpm bled into CPAP and with activity/exertion 1 Each 99 Potassium Chloride ER 10 MEQ Oral Tablet Extended Release Take 3 Tablets by mouth in the morning. Spironolactone 25 MG Oral Tablet (Aldactone) Take 1/2 tablet daily 45 Tablet 3 Prolia 60 MG/ML Subcutaneous Solution Prefilled Syringe (Denosumab) INJECT 60 MG (1 SYRINGE) UNDER THE SKIN EVERY 6 MONTHS 1 mL 1 Benzonatate 100 MG Oral Capsule Take 1-2 capsules three times daily as needed for cough. Do not cut, crush, or chew. 40 Capsule 1 Albuterol Sulfate HFA 108 (90 Base) MCG/ACT Inhalation Aerosol Solution Inhale 2 Puffs by mouth every 4 hours as needed for Wheezing. 18 g 3 Fluticasone Furoate-Vilanterol 100-25 MCG/ACT Inhalation Aerosol Powder Breath Activated (BREO ellipta) INHALE ONE PUFF BY MOUTH EVERY DAY 180 Each 3 Gabapentin 400 MG Oral Capsule (Neurontin) TAKE ONE CAPSULE BY MOUTH FOUR TIMES A DAY 400 Capsule 3 Benazepril HCl 40 MG Oral Tablet TAKE ONE TABLET BY MOUTH EVERY DAY 90 Tablet 3 Atorvastatin Calcium 20 MG Oral Tablet (Lipitor) TAKE ONE TABLET BY MOUTH EVERY DAY 90 Tablet 3 Doxazosin Mesylate 8 MG Oral Tablet TAKE ONE TABLET BY MOUTH AT BEDTIME 90 Tablet 3 Finasteride 5 MG Oral Tablet (Proscar) TAKE ONE TABLET BY MOUTH EVERY MORNING 90 Tablet 3 Atenolol 50 MG Oral Tablet (Tenormin) TAKE ONE TABLET BY MOUTH EVERY MORNING AND TAKE ONE-HALF TABLET IN THE EVENING 135 Tablet 3 Diclofenac Sodium 1 % External Gel (Voltaren) APPLY 4 GRAMS TOPICALLY TO UPPER/LOWER BACK TWO TIMESA DAY NEEDED FOR PAIN 800 g 0 Ipratropium-Albuterol 0.5-2.5 (3) MG/3ML Inhalation Solution (Duoneb) INHALE 1 VIAL (3ml) IN NEBULIZER 4 TIMES A DAY. 1080 mL 1 Omeprazole 20 MG Oral Capsule Delayed Release (PriLOSEC) TAKE ONE CAPSULE BY MOUTH TWICE A DAY 180 Capsule 3 Fluticasone Propionate 50 MCG/ACT Nasal Suspension (Flonase) ADMINISTER TWO SPRAYS IN EACH NOSTRIL EVERY MORNING 48 g 2 amLODIPine Besylate 5 MG Oral Tablet (Norvasc) TAKE ONE TABLET BY MOUTH EVERY DAY 100 Tablet 1 Furosemide 20 MG Oral Tablet (Lasix) TAKE ONE TABLET BY MOUTH EVERY MORNING. MAY TAKE ONE ADDITIONAL TABLET NEEDED FOR FLUID RETENTION, WEIGHT GAIN 100 Tablet 3 busPIRone HCl 5 MG Oral Tablet (Buspar) Take 1 Tablet by mouth in the morning and 1 Tablet before bedtime. 60 Tablet 6 predniSONE 5 MG Oral Tablet (Deltasone) TAKE ONE TABLET BY MOUTH DAILY 100 Tablet 0 CPAP 10 cm every night at bedtime. W/oxygen 1.5 lpm bled into cpap Acetaminophen 325 MG Oral Tablet (Tylenol) Take 3 Tablets by mouth in the morning and 3 Tablets at noon and 3 Tablets before bedtime. Do all this for 10 days. 90 Tablet 0 Baclofen 5 MG Oral Tablet (Lioresal) Take 1 Tablet by mouth in the morning and 1 Tablet in the evening. 30 Tablet 0 Docusate Sodium 100 MG Oral Capsule (Colace) Take 1 Capsule by mouth in the morning and 1 Capsule before bedtime. 30 Capsule 0 Polyethylene Glycol 3350 17 GM Oral Packet (Miralax) Take 1 Packet by mouth in the morning. 14 Each0 traMADol HCl 50 MG Oral Tablet (Ultram) Take 1 Tablet by mouth every 8 hours as needed for Pain, Severe. Current Facility-Administered Medications Medication Dose Route Frequency Provider Last Rate Last Admin Albuterol Sulfate (Proventil) (2.5 MG/3ML) 0.083% inhalation solution 2.5 mg 2.5 mg Nebulizer PRN Saul Moscoso MD Albuterol Sulfate (Proventil) (5 MG/ML) 0.5% *conc* inhalation solution 2.5 mg 2.5 mg Nebulizer Saul Cuenca MD Ranibizumab (Lucentis) intravitreal inj SOSY 0.5 mg 0.5 mg Intravitreal PRN Toney Davis DO 0.5 mg at 03/27/23 1344 ROPivacaine (Naropin) inj 1.5 mg 1.5 mg Injection PRN Toney Davis DO 1.5 mg at 03/27/23 1343 Social History Socioeconomic History Marital status: Spouse name: Soledad Number of children: 3 Years of education: 12 Highest education level: Not on file Occupational History 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 10 lb weight loss in last month HEENT: No change in visual acuity, blurred or double vision. No epistaxis, facial pain, nasal discharge or change in hearing. Denies dysphagia, no muscosal ulceration, or sores noted. Cardiovascular: No chest pain, GROVES, or palpitations Respiratory: No shortness of breath, cough, hemoptysis, or pleuritic chest pain Gastrointestinal: No abdominal pain, nausea, vomiting, diarrhea, rectal pain or bleeding. easy satiety Genitourinary: Denies Hematuria or dysuria. No significant nocturia or urinary hesitancy Musculoskeletal: Spinal stenosis L4-5. Thoracic spine bone Mets 2020 Skin: No skin rash or lesions noted Neurologic: No numbness, weakness, neuropathic pain or change in cognitive function Psychiatric: No vegetative signs of depression Endocrine: No symptoms of hypothyroidism or hyperglycemia Hematologic: No bleeding or lymph nodes noted. No history of ecchymoses or thromboses. As mentioned above, all other systems were reviewed in full and are unremarkable. Review of patient's allergies indicates: Allergen Reactions Amoxicillin Rash At time of knee replacement Oxycodone Other (Please comment) Severe mental change Percocet [Oxycodone-Acetaminophen] Other (Please comment) Severe mental change PHYSICAL EXAMINATION: From 05/12/2023 General Appearance: Healthy appearing patient in no acute distress, alert and oriented x3 There were no vitals taken for this visit.nasal oxygen in place Vitals were reviewed. HEENT: No oral or pharyngeal masses, ulceration or thrush noted, no sinus tenderness. Neck is supple with no thyromegaly or JVD noted. Lymph Nodes: No lymphadenopathy noted in the occipital, pre and post auricular, cervical, supra andinfraclavicular, axillary, epitrochlear, inguinal, and popliteal region. Breasts: Bilateral gynecomastia Lungs/Thorax: Bilateral basilar crepitations without dullness percussion Heart: Regular rate and rhythm, normal S1, S2, no appreciable murmurs, rubs, gallops Abdomen: Soft, obese, unable to palpate any internal organs or abdominal masses Extremities: Good pulses bilaterally, no peripheral edema cyanosis, or clubbing.. Skin: Normal skin tone with no rash, petechiae, ecchymosis noted. Musculoskeletal: No pain on palpation over bony prominence, no edema, no evidence of gout, no jointor bony deformity Neurologic: Lower extremity hyperreflexia LABS: Results for orders placed or performed during the hospital encounter of 05/09/23 CBC Result Value Ref Range WBC 9.61 4.00 - 10.80 K/uL RBC 4.70 4.50 - 5.25 M/uL HGB 13.9 (L) 14.0 - 16.8 g/dL HCT 42.8 40.0 - 48.4 % MCV 91.1 82.0 - 99.5 fL MCH 29.6 27.0 - 34.0 pg MCHC 32.5 32.0 - 36.0 g/dL RDW 14.0 11.5 - 15.5 % PLT 152 140 - 400 K/uL MPV 11.1 6.6 - 11.1 fL nRBCs 0 <=0 /100 WBCs Results for orders placed or performed during the hospital encounter of 05/09/23 DIFFERENTIAL, AUTOMATED Result Value Ref Range WBC 9.61 4.00 - 10.80 K/uL Neutrophils % 90.0 (H) 40.0 - 75.0 % Lymphocytes % 4.1 (L) 18.0 - 42.0 % Monocytes % 5.4 1.0 - 11.0 % Eosinophils % 0.0 0.0 - 6.0 % Basophils % 0.1 0.0 - 2.0 % Immature Granulocytes % 0.4 0.0 - 2.0 % Absolute Neutrophils 8.65 (H) 1.80 - 7.70 K/uL Absolute Lymphocytes 0.39 (L) 1.00 - 4.80 K/ul Absolute Monocytes 0.52 0.00 - 1.10 K/uL Absolute Eosinophils 0.00 0.00 - 0.70 K/uL Absolute Basophils 0.01 0.00 - 0.20 K/uL Absolute Immature Granulocytes 0.04 0.00 - 0.20 K/uL Results for orders placed or performed during the hospital encounter of 05/09/23 COMPREHENSIVE METABOLIC PANEL Result Value Ref Range BUN 16 6 - 20 mg/dL Creatinine 0.9 0.6 - 1.2 mg/dL Estimated Glomerular Filtration Rate 83 >=60 mL/min Sodium 141 135 - 146 mmol/L Potassium 4.0 3.5 - 5.1 mmol/L Chloride 105 98 - 107 mmol/L CO2 26 22 - 32 mmol/L Anion Gap 10 7 - 15 mmol/L Glucose 192 (H) 70 - 120 mg/dL Albumin 3.8 3.8 - 5.0 g/dL AST 38 10 - 50 U/L Alkaline Phosphatase 101 35 - 130 U/L Bilirubin, Total 0.5 <=1.2 mg/dL Calcium 8.4 8.4 - 10.2 mg/dL Protein 6.4 6.0 - 8.3 g/dL ALT 23 10 - 50 U/L Latest Reference Range & Units 01/26/21 10:45 02/18/21 15:41 06/04/21 08:53 10/11/21 13:07 02/21/22 15:03 06/10/22 12:51 01/02/23 11:18 04/14/23 12:55 PSA <4.10 ng/mL 0.15 0.15 0.06 0.03 0.08 0.28 1.03 1.79 RADIOLOGY: IMPRESSION: PET scan 06/02/2023 1. Multiple hypermetabolic liver foci concerning for metastasis. 2. Portacaval/celiac and retroperitoneal hazel metastases. 3. Hypermetabolic osseous metastases in T11, L2, and the left pelvis. IMPRESSION: CT chest abdomen pelvis 05/21/2023 1. Prominent fecal debris throughout the proximal and mid colon. 2. No mechanical obstruction. 3. Epigastric peritoneal soft tissue mass most likely metastatic lesion, unchanged from most recent study and 02/03/2022. 4. Hepatic hypodensities concerning for metastatic disease. 5. Stable osseous structures. 6. Enlarged prostate gland. IMPRESSION: Ultrasound abdomen 05/09/2023 1. Multiple solid lesions in the liver suspicious for neoplastic / metastatic disease, especially given patient's history 2. Substernal mass in the subcutaneous tissue of the anterior midline 3. Small gallstone or polyp in the gallbladder but no gross inflammatory change identified 4. Recommend CT to further evaluate the above findings in the liver and in the subcutaneous tissue IMPRESSION: CT chest 05/09/2023 1. Extensive fibrotic [...] prostate 6. Other chronic changes as above IMPRESSION: Bone scan 07/20/2020 1. Findings suspicious for osseous metastasis is noted in regions of the T1 and L3 vertebral bodies. 2. Focal radiotracer uptake within the left glenohumeral joint is likely degenerative changes basedoff of CT chest from 08/28/2018. Attention on follow- up is recommended and/or a left shoulder radiograph can be obtained for further evaluation IMPRESSION: PET scan 11/29/2017 1. 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 2. There is now only background level FDG activity within small mediastinal lymph nodes, which could be reactive and unrelated to lymphoma. This could also represent treated lymphoma. Duncan classification 2 PATHOLOGY: Name: SEFERINO MORALES OSVALDO (AGE) Sex: 1935 (83) M Billing #: [id number] MRN (Client MRN): [id number] Order #: [id number] Client Information Specimen Information Location: ORG Collected Date: 04/25/2018 04/07/2018 A. Esophageal biopsy: Squamocolumnar cell junctional mucosa with chronic inflammation, reactive epithelial change and focal intestinal metaplasia, consistent with Barretts esophagus, negative for dysplasia. Name: SEFERINO MORALES (AGE) Sex: 1935 (76) M Billing #: [id number] MRN (Client MRN): [id number] Order #: Client Information Specimen Information Location: DISCHARGE Collected Date: 07/11/2011 07/11/2011 A. Left internal mammary lymph node, excision: Hodgkin lymphoma, nodular sclerosis type. B. Left pleural nodule, excision: Hodgkin lymphoma, nodular sclerosis type. C. Anterior mediastinal contents, excision: Hodgkin lymphoma, nodular sclerosis type. D. Right internal mammary lymph node: Negative for malignancy. E. Left internal mammary lymph node: Hodgkin lymphoma, nodular sclerosis type. . Name: SEFERINO MORALES (AGE) Sex: 1935 (76) M Billing #: [id number] MRN (Client MRN): [id number] Order #: Client Information Specimen Information Location: SP Collected Date: 08/11/2011 08/11/2011 Copy To: Accession Date: 08/12/2011 Client Case #: Outside Client.: Reported Date: 08/15/2011 Report Type: Final Report Submittin - Seferino Soto MD Procedures/Addenda Present BONE MARROW INTERPRETATION Electronically Signed Out: Mel Zeng Colt BRADLEY. Bone marrow biopsy (left and right), aspirate, and peripheral smear: Hypercellular bone marrow with trilineage hematopoiesis No morphologic evidence of Hodgkin lymphoma . Name: SEFERINO MORALES OSVALDO (AGE) Sex: 1935 (76) M Billing #: [id number] MRN (Client MRN): [id number] Order #: [id number] Client Information Specimen Information Location: [facility] Collected Date: 06/22/2011 06/22/2011 A. Right hilar 10R lymph node, FNA: Benign Benign reactive lymph node Adequately cellular specimen Cellblock: The cell block preparation is hypocellular. Comment: There is a mixed population of large and small lymphocytes, and histiocytes, compatible with a benign reactive lymph node. B. Subcarina 7 lymph node, FNA: Benign Benign reactive lymph node Adequately cellular specimen Cellblock: The cellblock preparation shows similar findings. Special studies: Special stains for fungus and acid fast bacteria are negative Comment: There is a mixed population of large and small lymphocytes, histiocytes and occasional multinucleated giant cells, compatible with a benign reactive lymph node. C. Left hilar 10L lymph node, FNA: Benign Mixed lymphocytes, pigment-containing histiocytes, and fibrous tissue Adequately cellular specimen Cellblock: The cell block preparation demonstrates similar findings. Special studies: Special stains for fungus and acid fast bacteria are negative Comment: There are scattered mixed lymphocytes. Also present are fragments of fibrous tissue, and anthracotic pigment-containing histiocytes. ASSESSMENT: . 1. Abnormal CT scan of the abdomen, PET scan 06/02/2023 consistent with metastatic disease, histology? 2. History of Hodgkin's lymphoma, stage I-A, diagnosed 07/11/2011, treated with 4 infusions of ABVDlast on 09/30/2011, poorly tolerated, treated thereafter with 15 fractions of involved field radiotherapy ending at or about February 2012 3. Stage IV prostate cancer with bone metastases documented by bone scan 07/20/2020, original diagnosis made on 01/04/2016, status post TRUS with 4 cores positive, pT2a, Atkinson score 3+3=6, treated with Lupron until about 18 months ago. 4. Reveles's esophagus with history of stricture in the past.. 5. History of colon polyps. 6. Spinal stenosis L4-L5, treated with nerve block in the past. 7. 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 8. Obstructive sleep apnea syndrome, on CPAP. PLAN: 1. IR liver biopsy for histology and NGS. 2. Call back in 1 week regarding symptoms. 3. Metoclopramide 5-10 mg 3 times a day before meals for nausea 4. Office visit 6 weeks to discuss results of biopsy and to plan therapeutic strategy. I appreciate the opportunity of sharing in his care. The above was dictated using voice recognition software. Errors may have inadvertently been overlooked after review. Cayden Sandoval MD documented in this encounter Plan of Treatment Upcoming Encounters Date Type Department Care Team (Late st Contact Info) Description 06/12/2023 1:00 PM EST Home Visit [facility] [address] [id number] Amador Moreno PA-C [address] [id number] 06/23/2023 12:30 PM EST Home Visit [facility] at [place], [facility] [address] [place], [place] [address] Emeli Toledo, RN [address] [place], [place] [phone] 07/06/2023 12:40 PM EST Office Visit Podiatry [facility] [address] [place] [place] [address] Felicita Copeland DPM [address] [place] [id number] 07/27/2023 12:40 PM EST Office Visit Gastroenterology, [address] [place] [address] Trina Plaza DO [address] [address] [place] [address] 08/03/2023 1:30 PM EST Office Visit Urology [place] 27 [facility] [place] [address] [address] [address] Ryan Cunningham MD [address] [place] [address] [place] [address] 09/11/2023 2:00 PM EDT Appointment Radiology, [address] [place] [phone] 09/11/2023 2:30 PM EDT PulmDiagnostic Pulmonary Function Lab Harry Halley [place] [address] [address] [address], [address] [facility] [place] [address] 09/11/2023 3:00 PM EDT Office Visit Pulmonary Medicine [place] [address] [phone] Saul Moscoso MD [address] [place] [address] 10/25/2023 2:40 PM EDT Office Visit Family Practice [facility] [place] 200 [facility] [place] [address] Mirza Mcgee III, MD 200 [facility] [place] [address] 05/02/2024 1:00 PM EST Office Visit Sleep Disorders, [facility] [address] [place] [address] Alesha John MD 400 [place], [place] [phone] Scheduled Orders Name Type Priority Associated Diagnoses Orde r Schedule IR BIOPSY Medical Imaging Routine Metastases to the liver (HCC) Ordered: 06/07/2023 Health Maintenance Due Date Last Done Comments [...] Screening 02/03/2024 02/02/2023 CKD PHOS USE SMARTSET 27873 05/22/202404/27, 10/26/2022, 03/17/2022, Additional history exists CKD HGB USE SMARTSET 16395 05/30/202405/30, 05/30/2023, 05/27/2023, Additional history exists O2 ASSESSMENT COMPLETED IN PAST YEAR FOR COPD 05/30/2024 05/30/2023 Pneumococcal Vaccine: 65+ Years Completed 09/22/2015, 08/21/2001 VITAMIN D LEVEL ONCE IN A LIFETIME-USE SMARTSET# 86057 Completed 10/26/2022, 10/11/2021, 01/01/2019, Additional history exists Influenza Vaccine (FLU shot) Completed , 03/31/2022, 03/23/2021, Additional history exists GARDASIL-HPV IMMUNIZATION SERIES Aged Out No longer eligible based on patient's age to complete this topic MENINGOCOCCAL (MENACTRA/MENVEO) Aged Out No longer eligible based on patient's age to complete this topic documented as of this encounter Medical Devices Implanted Type Area Local Sales Associate Device Identifier Shelf Expiration Date Model / Serial / Lot Femur Nexgn E Right - [id number] Implanted:Qty: 1 on 05/12/2008 [place] [facility] [place]: Knee [employer] 02/24/2018 [id number] / / [id number] Femur Nexgn E Left - [id number] Implanted:Qty: 1 on 11/19/2008 [place] [facility] [place]: Knee [employer] [id number] -[id number] / / [id number] Sut Steel 6 M654g - [id number] Implanted:Qty: 6 on 07/11/2011 at [place] [facility] N/A: Chest DO NOT USE 01/09/2016 / / [id number] Akreos Ao Micro Incision Lens Mi60l Implanted:Qty: 1 on 11/07/2013 at OR [facility] Right: Eye 06/25/2016 [id number] / [id number] documented as of this encounter Visit Diagnoses Diagnosis Metastases to the liver (HCC)- Primary 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 Question Answer Comments Discussion of Advance Directives occurred with: Patient Code Status History Code Status Date Activated Date Inactivated Comments Full Code 05/21/2019 3:50 PM 05/21/2019 8:54 [...] the patient have Health Care Power of Instructional Interventionist? No Full Code 11/07/2013 9:36 AM 11/07/2013 1:54 PM This order reflects the patients wishes and were consensually agreed upon. Healthcare Agents on File Name Relationship Healthcare Agent Relationship Communication Soledad Morales Spouse Health Care Agen t (per Health Care Power of Instructional Interventionist document) [email or web address] Huma Hernández Adult Child First Alternate Health Care Agent (per Health Care Power of Instructional Interventionist document) [email or web address] Care Teams Bioinformatics Specialist Relationship Specialty Start Date End Date Miraz Mcgee III, MD [address] [place] [address], [place] [address] PCP - General Family Medicine 08/11/18 documented as of this encounter
--- OUTSIDE RECORDS SUMMARY | 2023-07-04 20:39 | External Medical Summary ---
Author Name Unknown Address Unknown Organization K1F:LABORATORY [facility] - [address] [place] [address] Ave. [place] [place] [address] Laboratory Report Ordering Provider Test Date Status BEAU SMITH 06/10/2023 12:04:46 Final Rheumatoid factor at a level above 50 [...] definitively correlate with clinical severity of disease. Observation Date Value Abnormality Reference (Units ) Status Fibrin D-dimer FEU [Mass/volume] in Platelet poor plasma by Immunoassay 06/10/2023 12:04:46 1.46 Above high normal <0.50 (ug/mL FEU) Final Performing Location LABORATORY [facility] - [address] [place] [address]
--- OUTSIDE RECORDS SUMMARY | 2023-07-04 20:39 | External Medical Summary ---
Author Name Unknown Address Unknown Organization K1F:LABORATORY [facility] - [address] [place] [address] Laboratory Report Ordering Provider Test Date Status BEAU SMITH 06/10/2023 12:04:46 Final Observation Date Value Abnormality Reference (Units ) Status Phosphate 06/10/2023 12:04:46 2.0 Below low normal 2.5 -4.8 (mg/dL) Final Performing Location LABORATORY [facility] - [address] [place] [address]
--- OUTSIDE RECORDS SUMMARY | 2023-07-04 20:39 | External Medical Summary ---
Author Name Unknown Address Unknown Organization K1F:LABORATORY [facility] - [address] [place] [address] Laboratory Report Ordering Provider Test Date Status BEAU SMITH 06/10/2023 12:04:46 Final Observation Date Value Abnormality Reference (Units ) Status Lactic Acid 06/10/2023 12:04:46 1.7 0.4-2.0 (mmol/L) Final Performing Location LABORATORY [facility] - [address] [place] [address]
--- OUTSIDE RECORDS SUMMARY | 2023-07-04 20:39 | External Medical Summary ---
Author Name Unknown Address Unknown Organization K1F:LABORATORY [facility] - [address] [place] [address] Laboratory Report Ordering Provider Test Date Status BEAU SMITH 06/10/2023 12:04:46 Final Exclude Heart Failure: <300 pg/mL
Diagnose Heart Failure:
Age <50 yr: >450 pg/mL
50-75 yr: >900 pg/mL
>75 yr: >1800 pg/mL
GFR is 30-59 mL/min: >1200 pg/mL or Age- adjusted values
GFR <30 mL/min: do not use, not reliable

Prognostic threshold: 1000 pg/mL Observation Date Value Abnormality Reference (Units ) Status BNP, Pro-hormone 06/10/2023 12:04:46 1302 Above high no rmal <300 (pg/mL) Final Performing Location LABORATORY [facility] - [address] [place] [address]
--- OUTSIDE RECORDS SUMMARY | 2023-07-04 20:39 | External Medical Summary ---
Author Name Unknown Address Unknown Organization K1F:LABORATORY [facility] - 400 [facility] [place] [address] Laboratory Report Ordering Provider Test Date Status BEAU SMITH 06/10/2023 12:50:18 Final ADMITTED patient Observation Date Value Abnormality Reference (Units ) Status Adenovirus DNA [Presence] in Nasopharynx by RICHARD with non-probe detection 06/10/2023 12:50:18 Negative Negative Final Human coronavirus 229E RNA [Presence] in Nasopharynx by RICHARD with non-probe detection 06/10/2023 12:50:18 Negative Negative Final Human coronavirus HKU1 RNA [Presence] in Nasopharynx by RICHARD with non-probe detection 06/10/2023 12:50:18 Negative Negative Final Human coronavirus NL63 RNA [Presence] in Nasopharynx by RICHARD with non-probe detection 06/10/2023 12:50:18 Negative Negative Final Human coronavirus OC43 RNA [Presence] in Nasopharynx by RICHARD with non-probe detection 06/10/2023 12:50:18 Negative Negative Final SARS-CoV-2 (COVID-19) RNA [Presence] in Nasopharynx by RICHARD with non-probe detection 06/10/2023 12:50:18 Negative Negative Final Human metapneumovirus RNA [Presence] in Nasopharynx by RICHARD with non-probe detection 06/10/2023 12:50:18 Negative Negative Final Rhinovirus+Enterovirus RNA [Presence] in Nasopharynx by RICHARD with non-probe detection 06/10/2023 12:50:18 Negative Negative Final Influenza virus A RNA [Presence] in Nasopharynx by RICHARD with non-probe detection 06/10/2023 12:50:18 Negative Negative Final Influenza virus B RNA [Presence] in Nasopharynx by RICHARD with non-probe detection 06/10/2023 12:50:18 Negative Negative Final Parainfluenza virus 1 RNA [Presence] in Nasopharynx by RICHARD with non-probe detection 06/10/2023 12:50:18 Negative Negative Final Parainfluenza virus 2 RNA [Presence] in Nasopharynx by RICHARD with non-probe detection 06/10/2023 12:50:18 Negative Negative Final Parainfluenza virus 3 RNA [Presence] in Nasopharynx by RICHARD with non-probe detection 06/10/2023 12:50:18 Negative Negative Final Parainfluenza virus 4 RNA [Presence] in Nasopharynx by RICHARD with non-probe detection 06/10/2023 12:50:18 Negative Negative Final Respiratory syncytial virus RNA [Presence] in Nasopharynx by RICHARD with non-probe detection 06/10/2023 12:50:18 Negative Negative Final Bordetella pertussis.pertussis toxin promoter region [Presence] in Nasopharynx by RICHARD with non-probe detection 06/10/2023 12:50:18 Negative Negative Final Chlamydophila pneumoniae DNA [Presence] in Nasopharynx by RICHARD with non-probe detection 06/10/2023 12:50:18 Negative Negative Final Mycoplasma pneumoniae DNA [Presence] in Nasopharynx by RICHARD with non-probe detection 06/10/2023 12:50:18 Negative Negative Final Bordetella parapertussis [id number] DNA [Presence] in Nasopharynx by RICHARD with non-probe detection 06/10/2023 12:50:18 Negative Negative Final
The primers that detect Rhinovirus may cross react with some Enterorviruses. The validation of bronchial specimens, tracheal aspirates, and throats for this assay was developed and performance characteristics determined by [facility]. The validation of alternate specimen types has not been cleared or approved by the U.S. Food and Drug Administration (FDA). It has been determined that such clearance or approval is not necessary. [address] [facility] [facility] [address]
--- OUTSIDE RECORDS SUMMARY | 2023-07-04 20:39 | External Medical Summary ---
Author Name Unknown Address Unknown Organization K1F:LABORATORY [facility] - [address] [place] [address] [place] [address] Laboratory Report Ordering Provider Test Date Status BEAU SMITH 06/10/2023 15:42:47 Final Observation Date Value Abnormality Reference (Units ) Status Color of Urine by Auto 06/10/2023 15:42:47 Yellow Light Yellow, Yellow, Dark Yellow Final Clarity, Urine 06/10/2023 15:42:47 Clear Clear Final Glucose [Mass/volume] in Urine by Automated test strip 06/10/2023 15:42:47 Negative Negative (mg/dL) Final Bilirubin.total [Presence] in Urine by Automated test strip 06/10/2023 15:42:47 Negative Negative Final Ketones [Mass/volume] in Urine by Automated test strip 06/10/2023 15:42:47 15 Abnormal Negative (mg/dL) Final Specific gravity, Urine 06/10/2023 15:42:47 1.043 Above high normal 1.003-1.030 Final Hemoglobin [Presence] in Urine by Automated test strip 06/10/2023 15:42:47 Trace Abnormal Negative Final pH, Urine 06/10/2023 15:42:47 6.0 5.0-7.5 (Units) Final Protein [Mass/volume] in Urine by Automated test strip 06/10/2023 15:42:47 30 Abnormal Negative (mg/dL) Final Urobilinogen [Mass/volume] in Urine by Automated test strip 06/10/2023 15:42:47 1.0 0.2, 1.0 (mg/dL) Final Nitrite [Presence] in Urine by Automated test strip 06/10/2023 15:42:47 Positive Abnormal Negative Final Leukocyte esterase [Presence] in Urine by Automated test strip 06/10/2023 15:42:47 Trace Abnormal Negative Final Performing Location LABORATORY [facility] - [address] [facility] [address] [place] [address]
--- OUTSIDE RECORDS SUMMARY | 2023-07-04 20:39 | External Medical Summary ---
Author Name Unknown Address Unknown Organization K1F:LABORATORY [facility] - Michelle [place] [address] Laboratory Report Ordering Provider Test Date Status BEAU SMITH 06/10/2023 13:42:00 Final Observation Date Value Abnormality Reference (Units ) Status Troponin T 06/10/2023 13:42:00 28 Above high normal < =22 (ng/L) Final Performing Location LABORATORY [facility] - [address] [place] [address]
--- OUTSIDE RECORDS SUMMARY | 2023-07-04 20:39 | External Medical Summary ---
Author Name Unknown Address Unknown Organization K1F:LABORATORY [facility] - [address] [place] [address] Laboratory Report Ordering Provider Test Date Status BEAU SMITH 06/10/2023 12:04:46 Final Observation Date Value Abnormality Reference (Units ) Status Lipase 06/10/2023 12:04:46 32 13-60 (U/L ) Final Performing Location LABORATORY [facility] - [address] [place] [address]
--- OUTSIDE RECORDS SUMMARY | 2023-07-04 20:39 | External Medical Summary ---
Author Name Unknown Address Unknown Organization K1F:LABORATORY [facility] - [address] [place] [address] Laboratory Report Ordering Provider Test Date Status BEAU SMITH 06/10/2023 12:04:46 Final Observation Date Value Abnormality Reference (Units ) Status BUN 06/10/2023 12:04:46 14 6-20 (mg/dL) Final Creatinine 06/10/2023 12:04:46 0.7 0.6-1.2 (mg/dL) Final Glomerular filtration rate/1.73 sq M.predicted [Volume Rate/Area] in Serum, Plasma or Blood by Creatinine-based formula (CKD-EPI) 06/10/2023 12:04:46 88 >=60 (mL/min) Final eGFR is calculated based on the CKD-EPI 2020 equation SODIUM 06/10/2023 12:04:46 137 135-146 (m mol/L) Final Potassium 06/10/2023 12:04:46 2.5 Below low normal 3.5 -5.1 (mmol/L) Final Cl 06/10/2023 12:04:46 93 Below low normal 98- 107 (mmol/L) Final CO2 06/10/2023 12:04:46 29 22-32 (mmo l/L) Final Anion gap 06/10/2023 12:04:46 15 7-15 (mmol /L) Final Glucose 06/10/2023 12:04:46 138 Above high normal 70 -120 (mg/dL) Final Albumin 06/10/2023 12:04:46 3.6 Below low normal 3.8 -5.0 (g/dL) Final AST (Aspartate aminotransferase) 06/10/2023 12:04:46 63 Above high normal 10-50 (U/L) Final Alk Phos 06/10/2023 12:04:46 165 Above high normal 35 -130 (U/L) Final Bilirubin, Total 06/10/2023 12:04:46 1.1 <=1 .2 (mg/dL) Final Calcium 06/10/2023 12:04:46 8.6 8.4-10.2 ( mg/dL) Final Protein 06/10/2023 12:04:46 6.8 6.0-8.3 (g /dL) Final ALT (Alanine aminotransferase) 06/10/2023 12:04:46 48 10-50 (U/L) Peter simons Performing Location LABORATORY [facility] - [address] [place], [place] [address]. [place] [address]
--- OUTSIDE RECORDS SUMMARY | 2023-07-04 20:39 | External Medical Summary ---
Author Name Unknown Address Unknown Organization K1F:LABORATORY [facility] - [address] [facility] [place] [address] Laboratory Report Ordering Provider Test Date Status BEAU SMITH 06/10/2023 12:04:46 Final Observation Date Value Abnormality Reference (Units ) Status SYNC LEUKOCYTES IN BLOOD BY AUTOMATED COUNT 06/10/2023 12:04:46 9.72 4.00-10.80 (K/uL) Final Segs 06/10/2023 12:04:46 88.1 Above high normal 40.0-75.0 (%) Final Lymphs % 06/10/2023 12:04:46 3.8 Below low normal 18.0-42.0 (%) Final Monos 06/10/2023 12:04:46 7.6 1.0-11.0 (%) Final Eosinophils 06/10/2023 12:04:46 0.0 0.0-6.0 (%) Final Basos 06/10/2023 12:04:46 0.1 0.0-2.0 (%) Final Immature Granulocyte, Percent 06/10/2023 12:04:46 0.4 0.0-2.0 (%) Final Absolute Segs 06/10/2023 12:04:46 8.56 Above high normal 1.80-7.70 (K/uL) Final Lymphs, absolute 06/10/2023 12:04:46 0.37 Below low normal 1.00-4.80 (K/ul) Final Monos, Abs 06/10/2023 12:04:46 0.74 0.00-1.10 (K/uL) Final Eos, Abs 06/10/2023 12:04:46 0.00 0.00-0.70 (K/uL) Final Basos, Abs 06/10/2023 12:04:46 0.01 0.00-0.20 (K/uL) Final Immature Granulocytes, Number 06/10/2023 12:04:46 0.04 0.00-0.20 (K/uL) Final Performing Location LABORATORY [facility] - [facility] [address] [place] [address]
--- OUTSIDE RECORDS SUMMARY | 2023-07-04 20:39 | External Medical Summary | Summary of Care ---
Author Name Unknown Organization [facility] Address [address] [place] [address] Phone [phone] Care Team Providers Care Chemistry Technical Officer Name Role Phone Everardo SHAFER MD, Mirza Zeng Primary Care Provider [phone] Reason for Visit * Reason Onset Date Comments Scheduling 06/08/2023 Liver biopsy Encounter Details Date Type Department Care Team ([facility] st Contact Info) Description 06/08/2023 Telephone Radiology, [facility] [address] [place] [address] Li Ortega I, VEDA Scheduling (Liver biopsy) Allergies Active Allergy Reactions Criticality Noted Date [...] 3, contact heart failure managing provider or [facility] 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 Eating, drinking, and check in instructions reviewed with daughter. Daughter also made awarethat patient needs lab work done before the procedure and has decided to bring patient in early to have drawn. Patient identified by: name/birthdate Person taught: Patient and Name Maile Finn Daughter METHOD: Lecture-telephone interview Patient Preferred Learning Methods: Lecture-Telephone interview PATIENT EDUCATION SCREENING Education Screening: Patient and Other: Daughter Motivation Level: Asks Questions and Eager to Learn Language Barrier: no Physical Barrier: N/A LEARNING NEED: Health history interview completed, pre op information given, and questions answeredvia telephone interview. OUTCOME: State / Describe / Explain PATIENT INSTRUCTIONS GIVEN: - Medication Instructions Reviewed - NPO Instructions Reviewed, pt to stop eating 8 hours prior to procedure and stop drinking 2 hoursprior to procedure. -Interventional Cardiologist required Location and check-in instructions - Obtain blood work as ordered Verbalizes understanding of education: Yes Procedure date at time of Imaging Encounter: 06-15 at 0900 What procedure is patient having? Liver lesion biopsy Laterality confirmed as N/a Does the patient have a yellow bar? Did not The Daughter was given the opportunity to ask questions concerning the procedure. Signature: Li Ortega RN 06/08/2023 * Telephone Encounter - Li Ortega RN - 06/08/2023 11:21 AM EST Called patient to schedule liver mass biopsy. Daughter answered phone and wanted to speak with the doctor at appointment today before scheduling. Waiting for a call back documented in this encounter Plan of Treatment Upcoming Encounters Date Type Department Care Team (Late st Contact Info) Description 06/12/2023 1:00 PM EST Home Visit [facility] [address] [address] Amador Moreno PA-C [address] [address] 06/23/2023 12:30 PM EST Home Visit [facility] [address] [address] Emeli Toledo RN [address] [address] 07/06/2023 12:40 PM EST Office Visit Podiatry [facility] [address] [place] [address] Felicita Copeland DPM [address] [place] [address] 07/27/2023 12:40 PM EST Office Visit Gastroenterology, [facility] [address] [facility] [place] [phone] Trina Plaza DO [address] [place] [address] 08/03/2023 1:30 PM EST Office Visit Urology [place] [address] [place] [address] [place] [address] Ryan Cunningham MD [address] [place] [address] [place] [address] 09/11/2023 2:00 PM EDT Appointment Radiology, [facility] 400 [facility] [place] [phone] 09/11/2023 2:30 PM EDT PulmDiagnostic Pulmonary Function Lab Harry [place] [address] [address] [address], [address] [place] [address] 09/11/2023 3:00 PM EDT Office Visit Pulmonary Medicine [place] [address] [place] [phone] Saul Moscoso MD [address] [place] [address] 10/25/2023 2:40 PM EDT Office Visit [facility] 200 [facility] [place] [address] Mirza Mcgee III, MD [address] [place] [address] 05/02/2024 1:00 PM EST Office Visit Sleep Disorders, [facility] [address] [place] [address] Alesha John MD 400 [place] [address] Scheduled Orders Name Type Priority Associated Diagnoses Orde r Schedule PT INR Lab STAT Liver lesion Expected: 06/09/2023, Expires: Health Maintenance Due Date Last Done Comments [...] Screening 02/03/2024 02/02/2023 CKD PHOS USE SMARTSET 52453 05/22/202404/27, 10/26/2022, 03/17/2022, Additional history exists CKD HGB USE SMARTSET 99874 05/30/202405/30, 05/30/2023, 05/27/2023, Additional history exists O2 ASSESSMENT COMPLETED IN PAST YEAR FOR COPD 05/30/2024 05/30/2023 Pneumococcal Vaccine: 65+ Years Completed 09/22/2015, 08/21/2001 VITAMIN D LEVEL ONCE IN A LIFETIME-USE SMARTSET# 40555 Completed 10/26/2022, 10/11/2021, 01/01/2019, Additional history exists Influenza Vaccine (FLU shot) Completed , 03/31/2022, 03/23/2021, Additional history exists GARDASIL-HPV IMMUNIZATION SERIES Aged Out No longer eligible based on patient's age to complete this topic MENINGOCOCCAL (MENACTRA/MENVEO) Aged Out No longer eligible based on patient's age to complete this topic documented as of this encounter Medical Devices Implanted Type Area Blasting Entryman Device Identifier Shelf Expiration Date Model / Serial / Lot Femur Nexgn E Right - [id number] Implanted:Qty: 1 on 05/12/2008 at [place] [facility] Right: Knee [employer] 02/24/2018 [id number] [id number] / / [id number] Femur Nexgn E Left - [id number] Implanted:Qty: 1 on 11/19/2008 at OR [facility] Left: Knee [employer] 00-5996-015 -[id number] / / [id number] Sut Steel 6 M654g - [id number] Implanted:Qty: 6 on 07/11/2011 at OR [facility] N/A: Chest DO NOT USE 01/09/2016 / / [id number] Akre[employer] Ao Micro Incision Lens Mi60l Implanted:Qty: 1 on 11/07/2013 at OR [facility] Right: Eye 06/25/2016 [id number] / [id number] / [id number] documented as of this encounter Visit Diagnoses Diagnosis Liver lesion- Primary Other specified disorders of liver documented in [...] the patient have Health Care Power of Felt Dyeing Machine Tender? No Full Code 11/07/2013 9:36 AM 11/07/2013 1:54 PM This order reflects the patients wishes and were consensually agreed upon. Healthcare Agents on File Name Relationship Healthcare Agent Relationship Communication Soledad Peters Spouse Health Care Agen t (per Health Care Power of Felt Dyeing Machine Tender document) [email or web address] Huma Hernández Adult Child First Alternate Health Care Agent (per Health Care Power of Felt Dyeing Machine Tender document) [email or web address] Teams Chemistry Technical Officer Relationship Specialty Start Date End Date Mirza Mcgee III, MD 200 [place] [address] PCP - General Family Medicine 08/11/18 documented as of this encounter
--- OUTSIDE RECORDS SUMMARY | 2023-07-04 20:39 | External Medical Summary ---
Author Name Unknown Address Unknown Organization K1F:LABORATORY [facility] - [facility] Sarah Beth [place] [address] Laboratory Report Ordering Provider Test Date Status BEAU SMITH 06/10/2023 15:42:47 Final Observation Date Value Abnormality Reference (Units ) Status RBC, Urine 06/10/2023 15:42:47 0-2 0-2 (/HPF) Final WBC, Urine 06/10/2023 15:42:47 50+ Abnormal 0-2 (/HPF) Final Bacteria [#/area] in Urine sediment by Microscopy high power field 06/10/2023 15:42:47 >200 Abnormal 0-25 (/HPF) Final Mucus, Urine 06/10/2023 15:42:47 Many Abnormal None (/HPF) Final Yeast [#/area] in Urine sediment by Microscopy high power field 06/10/2023 15:42:47 Present Abnormal None (/HPF) Final Performing Location LABORATORY [facility] - [address] [place] [address]
--- OUTSIDE RECORDS SUMMARY | 2023-07-04 20:39 | External Medical Summary ---
Author Name Unknown Address Unknown Organization K1F:LABORATORY [facility] - Michelle [place] [address] Laboratory Report Ordering Provider Test Date Status BEAU SMITH 06/10/2023 12:04:46 Final Observation Date Value Abnormality Reference (Units ) Status Troponin T 06/10/2023 12:04:46 30 Above high normal < =22 (ng/L) Final Performing Location LABORATORY [facility] - [address] [place] [address]
--- OUTSIDE RECORDS SUMMARY | 2023-07-04 20:40 | External Medical Summary | Summary of Care ---
Author Name Unknown Organization [facility] Address [address] [place] [address] Phone [phone] Care Team Providers Care Pulp Roller Name Role Phone Everardo SHAFER MD, Mirza Zeng Primary Care Provider [phone] Reason for Visit * Reason Onset Date Comments Advice 05/25/2023 Prolia Delivery Encounter Details Date Type Department Care Team (Late st Contact Info) Description 05/25/2023 Telephone Rheumatology [facility] [address] [place] [address] Poncho Smith MD [address] [facility] [place] [address] Advice (Prolia Delivery) Allergies Active Allergy Reactions Criticality Noted Date Comments Amoxicillin Rash 09/27/2005 At time of knee replacement Oxycodone Other (Please comment) 10/11/2012 Severe mental change Oxycodone-Acetaminophe n Other (Please comment) 03/15/2010 Severe mental change documented as of this encounter (statuses as of 06/07/2023) Medications Medication Sig Dispensed Refills Start Date End Date Status PRESERVISION AREDS 2 PO CAPS one by mouth twice a day 0 Active DIURETIC TITRATION PLAN If no improvement on day 3, contact heart failure managing provider or [facility] at home assistant case manager 1 Each 0 01/30/2019 Active [...] 1.5 lpm bled into cpap 0 Active Robitussin Cough+Chest Fidel DM 20-200 MG/20ML Oral Liquid (Dextromethorphan -guaiFENesin) Take by mouth . 0 3 Discontinue d(Medicatio n List Clean Up) traMADol HCl 50 MG Oral Tablet (Ultram)Indicatio ns:Cancer (HCC) Take 1 Tablet by mouth every 6 hours as needed for Pain, Moderate or Pain, Severe. 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 use of systemic steroids 10/18 History [...] as of this encounter (statuses as of 06/07/2023) Resolved Problems Problem Noted Date Diagnosed Date [...] seen at [facility] ER Anemia 05/13/2008 03/21/2017 Osteoarthritis of knee [...] obstruction 2 08/23/2018 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 [facility] 02[facility]2019 Overview: knees documented as of this encounter (statuses as of 06/07/2023) Immunizations Name Administration Dates Next Due COVID-19 [...] encounter Miscellaneous Notes * Telephone Encounter - Poncho Smith MD - 06/07/2023 11:16 AM EST I spoke with [facility] . Will hold on prolia for now given metastatic cancer. Will be seeing Oncology this week to discuss. * Telephone Encounter - Ezio Alicea LPN - 06/05/2023 8:53 AM EST Spoke with , "pt not doing well, was diagnosed with liver cancer, " * Telephone Encounter - Poncho Smith MD - 05/29/2023 4:52 PM EST No he cannot get it. His value is low. Please contact patient to find out how much calcium he is taking currently * Telephone Encounter - Jossie Potter LPN - 05/29/2023 11:09 AM EST Is pt ok to continue Prolia? Calcium level was 8.1 on 05/27, looks like he was just discharged from [facility] on Monday * Telephone Encounter - Martha Li OSA - 05/25/2023 3:31 PM EST [place] - Patient Related Communication Reason for Call: Medication question/side effect (Physician): received call from Allen in regards to scheduling delivery of pts Prolia to the office. Please call pharmacy- [facility] SANJEEV Martinez documented in this encounter Plan of Treatment Upcoming Encounters Date Type Department Care Team (Late st Contact Info) Description 06/08/2023 1:30 PM EST Telemedicine Hematology/Oncology, [facility] [address] [place] [address] Cayden Sandoval [facility] [address] 06/12/2023 1:00 PM EST Home Visit [facility] at [place], [facility] [address] [facility] [place] [address] Amador Moreno PA-C [address] [place] [address] 06/23/2023 12:30 PM EST Home Visit [facility] at [facility] [address] [facility] [place] [address] Emeli Toledo, RN [address] [facility] [place] [address] 07/06/2023 12:40 PM EST Office Visit Podiatry [facility] [address] [facility] [place] [address] Felicita Copeland DPM [address] [facility] [place] [address] 07/27/2023 12:40 PM EST Office Visit Gastroenterology, [facility] [place] [address] [place] [phone] Trina Plaza DO [address] [place] [address] 08/03/2023 1:30 PM EST Office Visit Urology Nora Pugh [address] [facility] [address] [place] [address] Ryan Cunningham MD 27 [facility] [place] [address] [place] [address] 09/11/2023 2:00 PM EDT Appointment Radiology, [facility] [address] [place] [phone] 09/11/2023 2:30 PM EDT PulmDiagnostic Pulmonary Function Lab [facility] [address] [facility] [place] [address] [place], [address] [place] [address] 09/11/2023 3:00 PM EDT Office Visit Pulmonary Medicine [facility] [address] [facility] [place] [phone] Saul Moscoso MD [address] [place] [facility] [place] [address] 10/25/2023 2:40 PM EDT Office Visit Family Practice [facility] [address] [place] [place] [address] Mirza Mcgee III, MD 200 [facility] [place] [address] 05/02/2024 1:00 PM EST Office Visit Sleep Disorders, [address] [place] [address] Alesha John MD 400 [facility] [place] [address] Health Maintenance Due Date Last Done Comments [...] Screening 02/03/2024 02/02/2023 CKD PHOS USE SMARTSET 65527 05/22/202404/27, 10/26/2022, 03/17/2022, Additional history exists CKD HGB USE SMARTSET 21553 05/30/202405/30, 05/30/2023, 05/27/2023, Additional history exists O2 ASSESSMENT COMPLETED IN PAST YEAR FOR COPD 05/30/2024 05/30/2023 Pneumococcal Vaccine: 65+ Years Completed 09/22/2015, 08/21/2001 VITAMIN D LEVEL ONCE IN A LIFETIME-USE SMARTSET# 57909 Completed 10/26/2022, 10/11/2021, 01/01/2019, Additional history exists Influenza Vaccine (FLU shot) Completed , 03/31/2022, 03/23/2021, Additional history exists GARDASIL-HPV IMMUNIZATION SERIES Aged Out No longer eligible based on patient's age to complete this topic MENINGOCOCCAL (MENACTRA/MENVEO) Aged Out No longer eligible based on patient's age to complete this topic documented as of this encounter Medical Devices Implanted Type Area Head Athletic Trainer Device Identifier Shelf Expiration Date Model / Serial / Lot Femur Nexgn E Right - [id number] Implanted:Qty: 1 on 05/12/2008 at OR [facility] Right: Knee [employer] 02/24/2018 00-5996-015 -[id number] / / [id number] Femur Nexgn E Left - [id number] Implanted:Qty: 1 on 11/19/2008 at OR [facility] Left: Knee [employer] 00-5996-015 -[id number] / / [id number] Sut Steel 6 M654g - [id number] Implanted:Qty: 6 on 07/11/2011 at OR [facility] N/A: Chest DO NOT USE 01/09/2016 / / [id number] Akreos Ao Micro Incision Lens Mi60l Implanted:Qty: 1 on 11/07/2013 at OR [facility] Right: Eye 06/25/2016 [id number] / [id number] / [id number] documented as of this encounter Advance Directives [...] the patient have Health Care Power of Turner And Former Automatic? No Full Code 11/07/2013 9:36 AM 11/07/2013 1:54 PM This order reflects the patients wishes and were consensually agreed upon. Healthcare Agents on File Name Relationship Healthcare Agent Relationship Communication Soledad Peters Spouse Health Care Agen t (per Health Care Power of Turner And Former Automatic document) [email or web address] Huma Hernández Adult Child First Alternate Health Care Agent (per Health Care Power of Turner And Former Automatic document) [email or web address] Care Teams Pulp Roller Relationship Specialty Start Date End Date Mirza Mcgee III, MD [address] [facility] [place] [address] PCP - General Family Medicine 08/11/18 documented as of this encounter
--- OUTSIDE RECORDS SUMMARY | 2023-07-04 20:40 | External Medical Summary | Summary of Care ---
Author Name Unknown Organization [facility] Address [address] [place] [address] Phone [phone] Care Team Providers Care Chief Pilot Name Role Phone Everardo SHAFER MD, Mirza Zeng Primary Care Provider [phone] Reason for Visit * Reason Onset Date Comments Scheduling 06/08/2023 Liver biopsy Encounter Details Date Type Department Care Team ([facility] st Contact Info) Description 06/08/2023 Telephone Radiology, [facility] [address] [place] [address] Li Ortega I, VEDA Scheduling [...] 3, contact heart failure managing provider or [facility] at home keycase assembler 1 Each 0 01/30/2019 Active aspirin [...] by mouth daily. 0 Active oxygen IN GASIndications:Chr onic respiratory failure with [...] TWICE A DAY 180 Capsule 3 04/04/2023 04/03/2024 Active Fluticasone Propionate 50 MCG/ACT Nasal Suspension (Flonase) ADMINISTER TWO SPRAYS IN EACH NOSTRIL EVERY MORNING 48 g 2 04/15/2023 04/14/2024 Active amLODIPine Besylate 5 MG Oral Tablet (Norvasc)Indicatio ns:HTN, goal below 140/90 TAKE ONE TABLET BY MOUTH EVERY DAY 100 Tablet 1 04/24/2023 04/23/2024 Active Furosemide 20 MG Oral Tablet (Lasix)Indications :HTN, goal below 140/90,Chronic diastolic heart failure (HCC) TAKE ONE TABLET BY MOUTH EVERY MORNING. MAY TAKE ONE ADDITIONAL TABLET NEEDED FOR FLUID RETENTION, WEIGHT GAIN 100 Tablet 3 04/25/2023 04/24/2024 Active busPIRone HCl 5 MG Oral Tablet (Buspar) Take 1 Tablet by mouth in the morning and 1 Tablet before bedtime. 60 Tablet 6 04/24/2023 Active predniSONE 5 MG Oral Tablet (Deltasone) TAKE ONE TABLET BY MOUTH DAILY 100 Tablet 0 04/26/2023 04/25/2024 Active CPAP 10 cm every night at bedtime. W/oxygen 1.5 lpm bled into cpap 0 Active Baclofen 5 MG Oral Tablet (Lioresal) Take 1 Tablet by mouth in the morning and 1 Tablet in the evening. 30 Tablet 0 05/27/2023 Active Docusate Sodium 100 MG Oral Capsule [...] as needed for Pain, Severe. 0 05/30/2023 Active Hospital, Clinic, or Other Facility Administered [...] DNR (do not resuscitate) 05/21/2023 Constipation 05/21/2023 [place] (hard of hearing) 05/21/2023 Poor vision 05/21/2023 [...] vein thrombosis) 09/22/2015 PMR (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) 10/18/2012 snf current use of systemic steroids 10/18 History [...] mRNA, LNP-s, No Pre serve, 2-Dose Series ([employer]) 08/30/2020,08/02/2020 Pneumococcal Conjugate Vacc, 13 Valent (Prevnar) [...] encounter Miscellaneous Notes * Telephone Encounter - Li Ortega I RN - 06/08/2023 11:21 AM EST Called patient to schedule liver mass biopsy. Daughter answered phone and wanted to speak with the doctor at appointment today before scheduling. Waiting for a call back documented in this encounter Plan of Treatment Upcoming Encounters Date Type Department Care Team (Late st Contact Info) Description 06/08/2023 1:30 PM EST Telemedicine Hematology/Oncology , [facility] [address] [place] [address] Cayden Sandoval MD 400 [facility] [place] [address] Metastases to the liver (HCC)* 06/12/2023 1:00 PM EST Home Visit [facility] [place] [address] Amador Moreno PA-C [address] [place] [address] 06/23/2023 12:30 PM EST Home Visit [facility] at [facility] [address] [place] [address] Emeli Toledo, RN [address] [place] [address] 07/06/2023 12:40 PM EST Office Visit Podiatry [facility] [address] [place] [address] Felicita Copeland DPM [address] [facility] [place] [address] 07/27/2023 12:40 PM EST Office Visit Gastroenterology, [facility] [address] [place] [phone] rTina Plaza DO [address] [place] [address] 08/03/2023 1:30 PM EST Office Visit Urology [facility] [address] [facility] [place] [place] [address] Ryan Cunningham MD [address] [facility] [address] [place] [address] 09/11/2023 2:00 PM EDT Appointment Radiology, [facility] [address] [facility] [place] [phone] 09/11/2023 2:30 PM EDT Pul[facility]Diagnostic [facility] [address] [facility] [place] [address] [address], [address] [place] [address] 09/11/2023 3:00 PM EDT Office Visit Pulmonary Medicine [facility] [address] [place] [phone] Saul Moscoso MD [address] [place] [address] 10/25/2023 2:40 PM EDT Office Visit [facility] [address] [place] [address] Mirza Mcgee III, MD 200 [place] [address] 05/02/2024 1:00 PM EST Office Visit Sleep Disorders, [facility] [address] [place] [address] Alesha John MD [address] [place] [address] Health Maintenance Due Date Last Done [...] Screening 02/03/2024 02/02/2023 CKD PHOS USE SMARTSET 18764 05/22/202404/27, 10/26/2022, 03/17/2022, Additional history exists CKD HGB USE SMARTSET 07572 05/30/202405/30, 05/30/2023, 05/27/2023, Additional history exists O2 ASSESSMENT COMPLETED IN PAST YEAR FOR COPD 05/30/2024 05/30/2023 Pneumococcal Vaccine: 65+ Years Completed 09/22/2015, 08/21/2001 VITAMIN D LEVEL ONCE IN A LIFETIME-USE SMARTSET# 73602 Completed 10/26/2022, 10/11/2021, 01/01/2019, Additional history exists Influenza Vaccine (FLU shot) Completed , 03/31/2022, 03/23/2021, Additional history exists GARDASIL-HPV IMMUNIZATION SERIES Aged Out No longer eligible based on patient's age to complete this topic MENINGOCOCCAL (MENACTRA/MENVEO) Aged Out No longer eligible based on patient's age to complete this topic documented as of this encounter Medical Devices Implanted Type Area Seismology Teacher Device Identifier Shelf Expiration Date Model / Serial / Lot Femur Nexgn E Right - [id number] Implanted:Qty: 1 on 05/12/2008 at [place] [facility] Right: Knee [employer] 02/24/2018 00-5996-015 -[id number] / / [id number] Femur Nexgn E Left - [id number] Implanted:Qty: 1 on 11/19/2008 at [place] [facility] Left: Knee [employer] 00-5996-015 -51 / / [id number] Sut Steel 6 M654g - [id number] Implanted:Qty: 6 on 07/11/2011 at [place] [facility] N/A: Chest DO NOT USE 01/09/2016 / / [id number] Akreos Ao Micro Incision Lens Mi60l Implanted:Qty: 1 on 11/07/2013 at OR [facility] Right: Eye 06/25/2016 [id number] / [id number] / [id number] documented as of this encounter Advance Directives [...] the patient have Health Care Power of Director Of Employee Development? No Full Code 11/07/2013 9:36 AM 11/07/2013 1:54 PM This order reflects the patients wishes and were consensually agreed upon. Healthcare Agents on File Name Relationship Healthcare Agent Relationship Communication Soledad Peters Spouse Health Care Agen t (per Health Care Power of Director Of Employee Development document) [email or web address] Huma Hernández Adult Child First Alternate Health Care Agent (per Health Care Power of Director Of Employee Development document) [email or web address] Care Teams Chief Pilot Relationship Specialty Start Date End Date Mirza Mcgee III, MD [address] [place] [address] PCP - General Family Medicine 08/11/18 documented as of this encounter
--- OUTSIDE RECORDS SUMMARY | 2023-07-04 20:40 | External Medical Summary ---
Author Name Unknown Address Unknown Organization K09:[facility] [place] [address] Laboratory Report Ordering Provider Test Date Status GARLAND LUCERO 05/30/2023 14:56:16 Final Observation Date Value Abnormality Reference (Units ) Status WBC, Total 05/30/2023 14:56:16 9.80 4.00-10.8 0 (K/uL) Final RBC 05/30/2023 14:56:16 4.77 4.50-5.25 (M/uL) Final Hemoglobin 05/30/2023 14:56:16 14.4 14.0-16.8 (g/dL) Final HCT 05/30/2023 14:56:16 44.0 40.0-48.4 (%) Final MCV 05/30/2023 14:56:16 92.2 82.0-99.5 (fL) Final MCH 05/30/2023 14:56:16 30.2 27.0-34.0 (pg) Final MCHC 05/30/2023 14:56:16 32.7 32.0-36.0 (g/dL) Final RDW 05/30/2023 14:56:16 14.2 11.5-15.5 (%) Final Platelets 05/30/2023 14:56:16 182 140-400 (K /uL) Final MPV 05/30/2023 14:56:16 11.0 6.6-11.1 ( fL) Final Performing Location [facility] [place] [address]
--- OUTSIDE RECORDS SUMMARY | 2023-07-04 20:40 | External Medical Summary ---
Author Name Unknown Address Unknown Organization K09:[facility] [place] [address] Laboratory Report Ordering Provider Test Date Status GARLAND LUCERO 05/30/2023 14:56:16 Final Observation Date Value Abnormality Reference (Units ) Status SYNC LEUKOCYTES IN BLOOD BY AUTOMATED COUNT 05/30/2023 14:56:16 9.80 4.00-10.80 (K/uL) Final Segs 05/30/2023 14:56:16 78.3 Above high normal 40.0-75.0 (%) Final Lymphs % 05/30/2023 14:56:16 8.3 Below low normal 18.0-42.0 (%) Final Monos 05/30/2023 14:56:16 11.2 Above high normal 1.0-11.0 (%) Final Eosinophils 05/30/2023 14:56:16 2.0 0.0-6.0 (%) Final Basos 05/30/2023 14:56:16 0.2 0.0-2.0 (%) Final Absolute Segs 05/30/2023 14:56:16 7.67 1.80-7.70 (K/uL) Final Lymphs, absolute 05/30/2023 14:56:16 0.81 Below low normal 1.00-4.80 (K/ul) Final Monos, Abs 05/30/2023 14:56:16 1.10 0.00-1.10 (K/uL) Final Eos, Abs 05/30/2023 14:56:16 0.20 0.00-0.70 (K/uL) Final Basos, Abs 05/30/2023 14:56:16 0.02 0.00-0.20 (K/uL) Final Performing Location [facility] [place] [address]
--- OUTSIDE RECORDS SUMMARY | 2023-07-04 20:40 | External Medical Summary | Summary of Care ---
Author Name Unknown Organization [facility] Address [address] [place] [address] Phone [phone] Care Team Providers Care Wastewater Analyst Name Role Phone Everardo SHAFER MD, Mirza Zeng Primary Care Provider [phone] Reason for Visit * Reason Onset Date Comments Advice 02/28/2023 Encounter Details Date Type Department Care Team (Late st Contact Info) Description 02/28/[address] [facility] [address] [place] [address] Mirza Mcgee III, MD [address] [place] [address] Advice Allergies Active Allergy Reactions Criticality Noted Date Comments Amoxicillin Rash 09/27/2005 At time of knee replacement Oxycodone Other (Please comment) 10/11/2012 Severe mental change Oxycodone-Acetaminophe n Other (Please comment) 03/15/2010 Severe mental change documented as of this encounter (statuses as of 05/30/2023) Medications Medication Sig Dispensed Refills Start Date End Date Status PRESERVISION AREDS 2 PO CAPS one by mouth twice a day 0 Active DIURETIC TITRATION PLAN If no improvement on day 3, contact heart failure managing provider or [facility] at home case briefer 1 Each 0 9 Active aspirin enteric coated 81 MG TBECIndications: HTN, goal below 140/90 Take one pill daily [...] mouth daily. 0 Active oxygen IN GASIndications:C hronic respiratory failure with hypoxia (HCC),PHT (pulmonary hypertension) (HCC) 1.5 lpm bled into CPAP and with activity/exerti on 1 Each 1 Active Potassium Chloride ER 10 MEQ Oral Tablet Extended Release Take 3 Tablets by mouth in the morning. 0 Active Spironolactone 25 MG Oral Tablet (Aldactone)Indic ations:HTN, goal below 140/90,Chronic diastolic heart failure (HCC) Take 1/2 tablet daily 45 Tablet 3 3 Active Prolia 60 MG/ML Subcutaneous Solution Prefilled Syringe (Denosumab) INJECT 60 MG (1 SYRINGE) UNDER THE SKIN EVERY 6 MONTHS 1 mL 1 3 10/07/19 24 Active Benzonatate 100 MG Oral CapsuleIndicatio ns:Bronchitis, complicated,Daija l URI with cough Take 1-2 capsules three times daily as needed for cough. Do not cut, crush, or chew. 40 Capsule 1 3 Active Albuterol Sulfate HFA 108 (90 Base) MCG/ACT Inhalation Aerosol SolutionIndicati ons:Acute bronchitis, antibiotics not indicated Inhale 2 Puffs by mouth every 4 hours as needed for Wheezing. 18 g 3 3 Active Fluticasone Furoate-Vilanter ol 100-25 MCG/ACT Inhalation Aerosol Powder Breath Activated (BREO ellipta)Indicati ons:Restrictive lung disease INHALE ONE PUFF BY MOUTH [...] MOUTH EVERY DAY 90 Tablet 3 3 08/22/19 24 Active Doxazosin Mesylate 8 MG Oral Tablet TAKE ONE TABLET BY MOUTH AT BEDTIME 90 Tablet 3 3 08/12/19 24 Active Finasteride 5 MG Oral Tablet (Proscar)Indicat ions:BPH with obstruction/lowe r urinary tract symptoms TAKE ONE TABLET BY MOUTH EVERY MORNING 90 Tablet 3 3 08/12/19 24 Active Atenolol 50 MG Oral Tablet (Tenormin)Indica tions:HTN, goal below 140/90,PVC (premature ventricular contraction) TAKE ONE TABLET BY MOUTH EVERY MORNING AND TAKE ONE-HALF TABLET IN THE EVENING 135 Tablet 3 3 02/08/20 24 Active Diclofenac Sodium 1 % External Gel (Voltaren) APPLY 4 GRAMS TOPICALLY TO UPPER/LOWER BACK TWO TIMES A DAY NEEDED FOR PAIN 800 g 0 3 Active CPAP every night at bedtime. 10 cm at bedtime daily 0 05/02/20 23 Discontinued(Med ication List Clean Up) Acetaminophen 500 MG Oral TabletIndication s:pain Take 1 Tablet by mouth every 6 hours as needed. 0 05/21/20 23 Discontinued Robitussin Cough+Chest Fidel DM 20-200 MG/20ML Oral Liquid (Dextromethorpha n-guaiFENesin) Take by mouth . 0 05/30/20 23 Discontinued(Med ication List Clean Up) predniSONE 5 MG Oral Tablet (Deltasone) TAKE ONE TABLET BY MOUTH DAILY 100 Tablet 0 3 04/25/20 23 Discontinued(Ref ill) amLODIPine Besylate 5 MG Oral Tablet (Norvasc)Indicat ions:HTN, goal below 140/90 TAKE ONE TABLET BY MOUTH EVERY DAY 100 Tablet 1 3 04/24/20 23 Discontinued(Ref ill) Fluticasone Propionate 50 MCG/ACT Nasal Suspension (Flonase) ADMINISTER TWO SPRAYS IN EACH NOSTRIL EVERY MORNING 48 g 1 3 04/15/20 23 Discontinued(Ref ill) Furosemide 20 MG Oral Tablet (Lasix) TAKE ONE TABLET BY MOUTH EVERY MORNING. 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 ER Anemia 05/13/2008 [...] obstruction 2 08/23/2018 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 [facility] S[facility] 02/2019 Overview: knees documented as of this encounter (statuses as of 05/30/2023) Immunizations Name Administration Dates Next Due COVID-19 mRNA, LNP-s, No Pre serve, 2-Dose Series (yWorld) 08/30/2020,08/02/2020 Pneumococcal Conjugate Vacc, 13 Valent (Prevnar) 09/22/2015 SEASONAL INFLUENZA, PF, 6 M & Above, IM , (FLULAVAL or FLUZONE) 03/01/2019,03/20/2018,05/16/2017 Season Influenza, Quad, PF, Adjuvanted, 65+ Yrs, IM (FLUAD) 03/06/2020 Seasonal Influenza Virus Vac cine, Unspecified Formulation 03/06/2020,03/01/2019,03/20/2018,2016,03/24/2016,03/16/2015,03/10/2014,1 ,04/02/2012,04/29/2011, 010,03/17/2009,04/04/2008,05/02/2007,,05/10/2005,05/30/2003,07/12/19 01 Seasonal Influenza, Quadriva lent Hd (Fluzone Hd) [...] encounter Miscellaneous Notes * Telephone Encounter - Soledad Key OSA - 02/28/2023 8:50 AM EDT Reason for patient's call: PT's is calling in regards to wanting to speak with a case briefer. Caller was transferred to Jayleen at the nurse line. documented in this encounter Plan of Treatment Upcoming Encounters Date Type Department Care Team (Late st Contact Info) Description 06/02/2023 10:45 AM EST Imaging Radiology, [place] [address] [address] [place] [address] 06/07/2023 8:00 AM EST Office Visit Ophthalmology, [facility] [address] [place] [address] Toney Davis DO [address] [place] [address] 06/08/2023 1:30 PM EST Telemedicine Hematology/Oncology, [facility] [address] Cayden Sandoval MD [address] [place] [address] 06/12/2023 1:00 PM EST Home Visit [facility] [place], [facility] [address] [place] [address] Amador oMreno PA-C [address] [place] [address] 06/23/2023 12:30 PM EST Home Visit [facility] [place], [facility] [address] [place] [address] Emeli Toledo, RN [address] [place], [place] [address] 07/06/2023 12:40 PM EST Office Visit Podiatry [facility] [address] [place] [address] Felicita Copeland DPM [address] [facility] [place], [place] [address] 07/27/2023 12:40 PM EST Office Visit Gastroenterology, [facility] [address] [facility] [phone] Trina Plaza DO [address] [place] [address] 08/03/2023 1:30 PM EST Office Visit Urology [facility] [place] [address] [facility] [place] [address] [place] [address] Ryan Cunningham MD 27 [facility] [address] [address] 09/11/2023 2:00 PM EDT Appointment Radiology, [facility] [address] [facility] [place] [phone] 09/11/2023 2:30 PM EDT PulmDiagnostic Pulmonary Function Lab [facility] [address] [place] [address] [place], [address] [facility] [place] [address] 09/11/2023 3:00 PM EDT [facility] [place] [address] [place] [phone] Saul Moscoso MD [address] [place] [address] 10/25/2023 2:40 PM EDT Office Visit Family [facility] [place] [address] [facility] [address] Mirza Mcgee III, MD [address] [facility] [place] [address] 05/02/2024 1:00 PM EST Office Visit Sleep Disorders, [facility] [address] [place] [address] Alesha John MD [address] [place] [address] Health Maintenance Due Date Last [...] 10/11/2022 10/11/2021, , 07/14/2021, Additional history exists *NEPHROLOGY REFERRAL DUE TO RESISTANT HTN 05/14/2023 HbA1c 10/14/2023 04/14/2023, 0508/2022, 06/10/2022, Additional history exists Albumin/Creatinine Ratio 10/27/2023 10/26/2022, 02/25 DXA Scan 11/03/2023 11/02/2021, 07/27, 04/11/2017, Additional history exists Depression Screening 02/03/2024 02/02/2023 CKD PHOS USE SMARTSET 03480 05/22/202404/27, 10/26/2022, 03/17/2022, Additional history exists O2 ASSESSMENT COMPLETED IN PAST YEAR FOR COPD 05/27/2024 05/30/2023 CKD HGB USE SMARTSET 13875 05/30/202405/30, 05/30/2023, 05/27/2023, Additional history exists Pneumococcal Vaccine: 65+ Years Completed 09/22/2015, 08/21/2001 VITAMIN D LEVEL ONCE IN A LIFETIME-USE SMARTSET# 56190 Completed 10/26/2022, 10/11/2021, 01/01/2019, Additional history exists Influenza Vaccine (FLU shot) Completed , 03/31/2022, 03/23/2021, Additional history exists GARDASIL-HPV IMMUNIZATION SERIES Aged Out No longer eligible based on patient's age to complete this topic MENINGOCOCCAL (MENACTRA/MENVEO) Aged Out No longer eligible based on patient's age to complete this topic documented as of this encounter Medical Devices Implanted Type Area Drag Down Device Identifier Shelf Expiration Date Model / Serial / Lot Femur Nexgn E Right - [id number] Implanted:Qty: 1 on 05/12/2008 at OR [facility] Right: Knee [employer] 02/24/2018 [id number] / / [id number] Femur Nexgn E Left - [id number] Implanted:Qty: 1 on 11/19/2008 at OR [facility] Left: Knee [employer] [id number] / / [id number] Sut Steel 6 M654g - [id number] Implanted:Qty: 6 on 07/11/2011 at OR [facility] N/A: Chest DO NOT USE 01/09/2016 / / [id number] [employer]ision Lens [id number] Implanted:Qty: 1 on 11/07/2013 at OR [facility] Right: Eye 06/25/2016 [id number] / [id number] / [id number] documented as of this encounter Advance Directives [...] the patient have Health Care Power of Market Asset Protection Manager? No Full Code 11/07/2013 9:36 AM 11/07/2013 1:54 PM This order reflects the patients wishes and were consensually agreed upon. Healthcare Agents on File Name Relationship Healthcare Agent Relationship Communication Soledad Peters Spouse Health Care Agen t (per Health Care Power of Market Asset Protection Manager document) [email or web address] Huma Hernández Adult Child First Alternate Health Care Agent (per Health Care Power of Market Asset Protection Manager document) [email or web address].Dialective Care Teams Wastewater Analyst Relationship Specialty Start Date End Date Mirza Mcgee III, MD [address] [place] [id number] PCP - General Family Medicine 08/11/18 documented as of this encounter
--- OUTSIDE RECORDS SUMMARY | 2023-07-04 20:40 | External Medical Summary ---
Author Name Unknown Address Unknown Organization [facility] [place] [address] Laboratory Report Ordering Provider Test Date Status GARLAND LUCERO 05/30/2023 14:56:16 Final Observation Date Value Abnormality Reference (Units ) Status BUN 05/30/2023 14:56:16 12 6-20 (mg/dL) Final Creatinine 05/30/2023 14:56:16 0.8 0.6-1.2 (mg/dL) Final Glomerular filtration rate/1.73 sq M.predicted [Volume Rate/Area] in Serum, Plasma or Blood by Creatinine-based formula (CKD-EPI) 05/30/2023 14:56:16 84 >=60 (mL/min) Final eGFR is calculated based on the CKD-EPI 2020 equation SODIUM 05/30/2023 14:56:16 141 135-146 (m mol/L) Final Potassium 05/30/2023 14:56:16 3.7 3.5-5.1 (m mol/L) Final Cl 05/30/2023 14:56:16 102 98-107 (mm ol/L) Final CO2 05/30/2023 14:56:16 27 22-32 (mmo l/L) Final Anion gap 05/30/2023 14:56:16 12 7-15 (mmol /L) Final Glucose 05/30/2023 14:56:16 117 70-120 (mg /dL) Final Calcium 05/30/2023 14:56:16 8.5 8.4-10.2 ( mg/dL) Final Performing Location [facility] [place] [address]
--- OUTSIDE RECORDS SUMMARY | 2023-07-04 20:40 | External Medical Summary | Summary of Care ---
Author Name Unknown Organization [facility] Address [address] [place] [address] Phone [phone] Care Team Providers Care Pipe Roller Name Role Phone Everardo SHAFER MD, Mirza Zeng Primary Care Provider [phone] Reason for Referral * Evaluate & Treat - Unlimited Visits (Within 10 days (routine)) - Authorized Specialty Diagnoses / Procedures Referred By Contac t Referred To Contact Hospice and Palliative Medicine / Palliative Medicine Diagnoses Prostate cancer metastatic to bone (HCC) Charmaine Lira MD [address] [place] [id number] Referral ID Status Reason Start Date Expiration Date Visits Requested Visits Authorized [id number] Authorized Specialty Services Required 05/30/[phone] Question Answer Referral Priority Within 10 days (routine) Where should this appointment be scheduled? [facility] Reason for Referral: Cancer Palliative Medicine To Address: Pain & Symptom Management Is this referral for [facility] Palliative service? ([facility] Insurance Only) No Comments Metastatic prostate cancer, significant back pain. Thanks. Reason for Visit * Reason Onset Date Comments Hospital Follow-Up Pt here for a hospital f/u 05/21/23 for vomiting and constipation for just over 2 weeks Hospital Follow-Up 05/30/2023 Encounter Details Date Type Department Care Team ([facility] st Contact Info) Description 05/30/2023 2:00 PM EST Office Visit General Internal Medicine [facility] [address] [place], [place] [address] Charmaine Lira MD [address] [facility] [place], [place] [address] Slow transit constipation*; Prostate cancer metastatic to bone (HCC); Senile osteoporosis; Hospital discharge follow-up; DNR (do not resuscitate); History of Hodgkin's disease Allergies Active Allergy Reactions Criticality Noted Date [...] managing provider or [facility] at [facility] case maker 1 Each 0 01/30/2019 Active aspirin enteric [...] 1.5 lpm bled into cpap 0 Active Acetaminophen 325 MG Oral Tablet (Tylenol) Take 3 Tablets by mouth in the morning and 3 Tablets at noon and 3 Tablets before bedtime. Do all this for 10 days. 90 Tablet 0 05/27/2023 3 Active Baclofen 5 MG Oral Tablet (Lioresal) [...] needed for Pain, Severe. 0 05/30/2023 Active Robitussin Cough+Chest Fidel DM 20-200 MG/20ML [...] Up) traMADol HCl 50 MG Oral Tablet (Ultram) Take 1 Tablet by mouth every 8 hours as needed for Pain, Severe. 10 Tablet 0 05/27/2023 3 Discontinue d(Medicatio n List Clean Up) Hospital, Clinic, or Other Facility Administered Medication [...] DNR (do not resuscitate) 05/21/2023 Constipation 05/21/2023 [place] (hard of hearing) 05/21/2023 Poor vision 05/21/2023 [...] thrombosis) 09/22/2015 PMR (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) 10/18/2012 senior care current use of systemic steroids 10/18 History [...] obstruction 2 08/23/2018 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 [facility] SITE 02/2019 Overview: knees documented as [...] Never Smokeless Tobacco: Never Tobacco Cessation:Counseling Given: Not Answered Alcohol Use Standard Drinks/Week Comments No 0 [...] Sign Reading Time Taken Comments Blood Pressure 138/62 05/30/2023 1:53 PM EST Pulse 68 05/30/2023 1:53 PM EST Temperature 36.4 C (97.5 F) 05/30/2023 1:53 PM ES T Respiratory Rate 16 05/30/2023 1:53 PM EST Oxygen Saturation 92% 05/30/2023 1:53 PM EST Inhaled Oxygen Concentration - - Weight 104.1 kg (229 lb 9.6 oz) 05/30/2023 1:53 PM EST Height 172.7 cm (5' 8") 05/30/2023 1:53 PM EST Body Mass Index 34.91 05/30/2023 1:53 PM EST documented in this encounter Functional [...] as of this encounter Progress Notes * Charmaine Lira MD - 05/30/2023 1:48 PM EST HPI: Dedrick Peters is a 88 year old male who presents with: Chief Complaint Patient presents with Hospital Follow-Up Pt here for a hospital f/u 05/21/23 for vomiting and constipation for just over 2 weeks Hospital Follow-Up Pt is here for the hospital follow up. Chart reviewed from the hospital including admission note, Hand P, consult notes, labs, EKG, imaging and discharge note including discharge meds. Patient states she is feeling better since went back home. Pt was admitted to the hospital on 05/21/23 and was discharged on 05/27/23 . Admission Diagnosis : severe or uncontrolled pain secondary to metastatic prostate cancer. Pt has been followed up by case maker and specialists. 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 Of note he was recently in ED 05/09 with severe back pain-CTAP showed suspected neoplastic/metastatic findings in the liver and peritoneal cavity just below the sternum. He was seen by GI and referred to hem/onc. PET scan scheduled for 06/02/23. Daughter is present during exam. Lives at home with his . Reports not feeling well for about a week with continued severe back pain. Reports he does not tolerate oxycodone. Was given tramadol for pain by PCP without relief. Reports no bowel movement for a week. Significant nausea with vomiting when he tries to eat. Generalized abdominal pain for days with abdominal distention. Denies any recent fevers chills, chest pain, shortness on breath, headache. Reports occasional slight cough. In ED, labs unremarkable, UA with ketones. Chest x-ray showed stable peribronchial opacity in the right hilar region-unchanged since 10/09/2022. CT A/P showed fecal debris throughout proximal and midcolon without mechanical obstruction. Again noted epigastric peritoneal soft tissue mass most likely metastatic lesion, hepatic hypodensities concerning for metastatic disease. He was given morphine and Zofran in the ED with some improvement of his pain and nausea. Also [id number] saline bolus. Admission requested for further management and monitoring. Seems like patient was admitted and monitored, given IV hydration initially as well as meds for nausea, vomiting. Gradually patient started Patient also has issue with the back pain which he had flare-up while in the hospital. While in thehospital at the discharge was started on low dose baclofen which he tolerated and was advised to continue for as needed back spasm and follow up with PCP who can gradually increase the dosage if needed. Patient was discharged home on p.r.n. tramadol. Patient did do PT, OT and ambulated well in the hallway with a walker and assistance. CT abdomen showed CT abdomen showed CT abdomen showed IMPRESSION: 1. Prominent fecal debris throughout the proximal and mid colon. 2. No mechanical obstruction. 3. Epigastric peritoneal soft tissue mass most likely metastatic lesion, unchanged from most recent study and 02/03/2022. 4. Hepatic hypodensities concerning for metastatic disease. 5. Stable osseous structures. 6. Enlarged prostate gland. Medication at the discharge were Tylenol 325 mg tablet 3 pills 3 times a day as needed for pain Docusate sodium 100 mg 1 capsule twice a day. Baclofen 5 mg tablet 1 tablet in the morning and 1 in the evening as needed for muscle spasm. MiraLax 1 packet once a day in the morning. Patient was advised to continue all the other current regular medications. Patient was also advised to get repeat blood work at the hospital discharge follow-up as an outpatient which is today. Has worsening lower backpain. Stats Tramadol has helped but was giving constipation for which he daniela more meds, stool softner. We discussed all OTC meds including colace three times daily, Miralax twice daily, adding senna with miralax and if needed, add metamucil with water and dulcolax just as needed. Patient Active Problem List Diagnosis Code Dyslipidemia, goal LDL below 70 E78.5 BPH without obstruction/lower urinary tract symptoms N40.0 ADVANCE DIRECTIVE INFORMATION HTN, goal below 140/90 I10 HEARING LOSS D-T NOISE H83.3X9 Disorder of intervertebral disc M51.9 Irritable bowel syndrome K58.9 SPINAL STENOSIS Mild L4-5 M48.00 KNEE JOINT REPLACEMENT STATUS, R and L Z96.659 Gastroesophageal reflux disease without esophagitis K21.9 History of Hodgkin's disease Z85.71 PMR (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) (HCC) M35.3 senior care current use of systemic steroids Z79.52 History of DVT (deep vein thrombosis) Z86.718 Prostate cancer metastatic to bone ([facility]) C61, C79.51 Senile osteoporosis M81.0 Type 2 diabetes mellitus with hemoglobin A1c goal of less than 8.0% ([facility]) E11.9 Exudative age-related macular degeneration of left eye with inactive scar ([facility]) H35.3223 Dysphagia R13.10 Type 2 diabetes mellitus with diabetic polyneuropathy ([facility]) E11.42 Chronic diastolic heart failure ([facility]) I50.32 Schatzki's ring K22.2 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, 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.0X5A Barretts esophagus K22.70 PVC (premature ventricular contraction) I49.3 Generalized osteoarthritis M15.9 SANJEEV (obstructive sleep apnea) G47.33 Chronic respiratory failure with hypoxia ([facility]) J96.11 Type 2 diabetes mellitus with stage 3a chronic kidney disease, without long-term current use of insulin ([facility]) E11.22, N18.31 Hypertensive heart and kidney disease with chronic diastolic congestive heart failure and stage 3a chronic kidney disease ([facility]) I13.0, I50.32, N18.31 Sacroiliitis ([facility]) M46.1 Exudative age-related macular degeneration, bilateral, with active choroidal neovascularization ([facility]) H35.3231 COPD, group C, by GOLD 2017 classification ([facility]) J44.9 Intractable nausea and vomiting R11.2 Uncontrolled pain R52 Degenerative lumbar spinal stenosis M48.061 DNR (do not resuscitate) Z66 Constipation K59.00 [place] (hard of hearing) H91.90 Poor vision H54.7 Current Outpatient Medications Medication Sig Dispense Refill PRESERVISION AREDS 2 PO CAPS one by mouth twice a day aspirin enteric coated 81 MG TBEC Take [...] Take 1/2 tablet daily 45 Tablet 3 Benzonatate 100 MG Oral Capsule Take 1-2 [...] FOUR TIMES A DAY 400 Capsule 3 Atorvastatin Calcium 20 MG Oral Tablet [...] this for 10 days. 90 Tablet 0 Docusate Sodium 100 MG Oral Capsule (Colace) Take 1 Capsule by mouth in the morning and 1 Capsule before bedtime. 30 Capsule 0 Polyethylene Glycol 3350 17 GM Oral Packet (Miralax) Take 1 Packet by mouth in the morning. 14 Each0 DIURETIC TITRATION PLAN If no improvement on day 3, contact heart failure managing provider or [facility] at home case maker 1 Each 0 Prolia 60 MG/ML Subcutaneous Solution Prefilled Syringe (Denosumab) INJECT 60 MG (1 SYRINGE) UNDER THE SKIN EVERY 6 MONTHS 1 mL 1 Benazepril HCl 40 MG Oral Tablet TAKE ONE TABLET BY MOUTH EVERY DAY 90 Tablet 3 Baclofen 5 MG Oral Tablet (Lioresal) Take 1 Tablet by mouth in the morning and 1 Tablet in the evening. 30 Tablet 0 Current Facility-Administered Medications Medication Dose Route Frequency Provider Last Rate Last Admin Albuterol Sulfate (Proventil) (2.5 MG/3ML) 0.083% inhalation solution 2.5 mg 2.5 mg Nebulizer PRN Saul Moscoso MD Albuterol Sulfate (Proventil) (5 MG/ML) 0.5% *conc* inhalation solution 2.5 mg 2.5 mg Nebulizer Saul Cuenca MD Ranibizumab (Lucentis) intravitreal inj SOSY 0.5 mg 0.5 mg Intravitreal PRN Toney Davis, DO 0.5 mg at 03/27/23 1344 ROPivacaine (Naropin) inj 1.5 mg 1.5 mg Injection PRN Toney Davis, DO 1.5 mg at 03/27/23 1343 The patient's medication list was reviewed and updated as needed. 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 Social Determinants of Health Food Insecurity: No Food Insecurity (05/29/2023) Hunger Vital Sign Worried About Running Out of Food in the Last Year: Never true Ran Out of Food in the Last Year: Never true Family History Problem Relation Age of Onset Stroke Mother age 77 Hypertension Mother Alzheimer's disease Mother Diabetes Mother Arthritis Mother Cancer Mother Bladder Stroke Brother Hypertension Brother Heart disease Brother h/o CABG Cancer Brother Bladder, age 89 Hypertension Father Stroke Father age 71 COPD Father Emphysema Father Lung Disorder Father Silicosis-brick sawmill or timber yard worker Other (Other) Other no known family hx of skin disorders or skin ca All system negative except as per hpi. OBJECTIVE: Blood pressure 138/62, pulse 68, temperature 36.4 C (97.5 F), temperature source Tympanic, resp. rate 16, height 1.727 m (5' 8"), weight 104.1 kg (229 lb 9.6 oz), SpO2 92%. PHYSICAL EXAM: HEENT: PERRLA, EOMI, anicteric sclera, b/l tympanic membrane is pearly white, no erythema, no pharyngeal erythema, no lymphadenopathy, neck supple CVS: RRR, no murmurs, rubs or gallops, s1 s 2normal. RESP: clear to auscultation, no wheezing or crackles ABD: soft, NT/ND EXT: Bl trace edema. No large joint swelling, no redness, range of motion normal. Skin normal. Gait normal. Mood sadness from pain. No focal weakness ASSESSMENT AND PLAN: Slow transit constipation (Primary) - BASIC METABOLIC PANEL; Future; Expected date: 05/30/2023 Continue high-fiber diet, hydration, current dose of docusate, MiraLax. Advised senna daily. Add colace to three times daily, Miralax with senna twice daily, hydration, Metamucil and dulcolax. Prostate cancer metastatic to bone (HCC) - CBC WITH WBC DIFFERENTIAL; Future; Expected date: 05/30/2023 - BASIC METABOLIC PANEL; Future; Expected date: 05/30/2023 Continue tramadol as needed along with Tylenol as needed. Discussed palliative care management consultation. Senile osteoporosis Fall precautions advised. Hospital discharge follow-up - DISCH MED RECON CUR MED LIS DNR (do not resuscitate) History of Hodgkin's disease Charmaine Lira MD documented in this encounter Plan of Treatment Upcoming Encounters Date Type Department Care Team (Late st Contact Info) Description 06/02/2023 10:45 AM EST Imaging Radiology, [place] [address] [address] [place] [address] 06/07/2023 8:00 AM EST Office Visit Ophthalmology, [facility] [address] [facility] [place] [address] Toney Davis, DO [address] [place] [address] 06/08/2023 1:30 PM EST Telemedicine Hematology/Oncology, [facility] [address] [facility] [place] [address] Cayden Sandoval MD [address] [facility] [address] 06/12/2023 1:00 PM EST [facility] Visit [facility] [place], [facility] [address] [facility] [place] [address] Amador Moreno PA-C [address] [place] [address] 06/23/2023 12:30 PM EST Home Visit [facility] [place], [facility] [address] [facility] [place] [address] Emeli Toledo, RN [address] [place] [address] 07/06/2023 12:40 PM EST Office Visit Podiatry [facility] [address] [facility] [place] [address] Felicita Copeland DPM [address] [place] [address] 07/27/2023 12:40 PM EST Office Visit Gastroenterology, [facility] [address] [place] [phone] Trina Plaza, DO [address] [place] [address] 08/03/2023 1:30 PM EST Office [place] [address] [place] [address] [place] [address] Ryan Cunningham MD [address] [place] [address] [place] [address] 09/11/2023 2:00 PM EDT Appointment Radiology, [facility] [address] [facility] [place] [phone] 09/11/2023 2:30 PM EDT PulmDiagnostic Pulmonary Function Lab Harry [facility] [place] [address] [place] [address] [place], [address] [facility] [place] [address] 09/11/2023 3:00 PM EDT Office Visit Pulmonary Medicine [place] [address] [place] [phone] Saul Moscoso MD [address] [place] [address] 10/25/2023 2:40 PM EDT Office Visit Family Practice [facility] [address] [facility] [place], [place] [address] Mirza Mcgee III, MD [address] [facility] [place], [place] [address] 05/02/2024 1:00 PM EST Office Visit Sleep Disorders, [address] [place] [address] Alesha John MD [address] [facility] [place] [address] Pending Results Name Type Priority Associated Diagnoses Date /Time CBC WITH WBC DIFFERENTIAL Lab Routine Prostate cancer metastatic to bone (HCC) 05/30/2023 2:56 PM EST BASIC METABOLIC PANEL Lab Routine Prostate cancer metastatic to bone (HCC) Slow transit constipation 05/30/2023 2:56 PM EST Scheduled Orders Name Type Priority Associated Diagnoses Orde r Schedule CBC WITH WBC DIFFERENTIAL Lab Routine Prostate cancer metastatic to bone (HCC) Expected: 05/30/2023 (Approximate), Expires: 05/30/2024 BASIC METABOLIC PANEL Lab Routine Prostate cancer metastatic to bone (HCC) Slow transit constipation Expected: 05/30/2023 (Approximate), Expires: 05/29/2024 Scheduled Referrals Name Type Priority Associated Diagnoses Orde r Schedule PALLIATIVE CARE REFERRAL OP Referral Within 10 days (routine) Prostate cancer metastatic to bone (HCC) Ordered: 05/30/2023 Health Maintenance Due Date Last Done Comments [...] TO RESISTANT HTN 05/14/2023 HbA1c 10/14/2023 04/14/2023, 05/0 08/2022, 06/10/2022, Additional history exists Albumin/Creatinine Ratio 10/27/2023 10/26/2022, 02/25 DXA Scan 11/03/2023 11/02/2021, 07/27, 04/11/2017, Additional history exists Depression Screening 02/03/2024 02/02/2023 CKD PHOS USE SMARTSET 14794 05/22/202404/27, 10/26/2022, 03/17/2022, Additional history exists CKD HGB USE SMARTSET 97142 05/27/202405/27, 05/26/2023, 05/25/2023, Additional history exists O2 ASSESSMENT COMPLETED IN PAST YEAR FOR COPD 05/27/2024 05/30/2023 Pneumococcal Vaccine: 65+ Years Completed 09/22/2015, 08/21/2001 VITAMIN D LEVEL ONCE IN A LIFETIME-USE SMARTSET# [id number] Completed 10/26/2022, 10/11/2021, 01/01/2019, Additional history exists Influenza Vaccine (FLU shot) Completed , 03/31/2022, 03/23/2021, Additional history exists GARDASIL-HPV IMMUNIZATION SERIES Aged Out No longer eligible based on patient's age to complete this topic MENINGOCOCCAL (MENACTRA/MENVEO) Aged Out No longer eligible based on patient's age to complete this topic documented as of this encounter Medical Devices Implanted Type Area Graphic Pre Press Trades Worker Device Identifier Shelf Expiration Date Model / Serial / Lot Femur Nexgn E Right - [id number] Implanted:Qty: 1 on 05/12/2008 at [place] [facility] Right: Knee [employer] 02/24/2018 [id number] / / [id number] Femur Nexgn E Left - [id number] Implanted:Qty: 1 on 11/19/2008 at OR [facility] Left: Knee [employer] [id number] / / [id number] Sut Steel 6 M654g - [id number] Implanted:Qty: 6 on 07/11/2011 at [place] [facility] [place] [facility] N/A: Chest DO NOT USE 01/09/2016 / / [id number] [employer] A[employer] Micro Incision Lens [id number] Implanted:Qty: 1 on 11/07/2013 at OR [facility] Right: Eye 06/25/2016 [id number] / [id number] / [id number] documented as of this encounter Visit Diagnoses Diagnosis Slow transit constipation- Primary 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 No Full Code 11/07/2013 9:36 AM 11/07/2013 1:54 PM This order reflects the patients wishes and were consensually agreed upon. Healthcare Agents on File Name Relationship Healthcare Agent Relationship Communication Soledad Peters Spouse Health Care Agen t (per Health Care Power of Sample Coordinator document) [email or web address] Huma Hernández Adult Child First Alternate Health Care Agent (per Health Care Power of Sample Coordinator document) [email or web address] Care Teams Pipe Roller Relationship Specialty Start Date End Date Everardo SHAFER, Mirza Zeng MD [address] [facility] [address] PCP - General Family Medicine 08/11/18 documented as of this encounter
--- OUTSIDE RECORDS SUMMARY | 2023-07-04 20:40 | External Medical Summary | Summary of Care ---
Author Name Unknown Organization [facility] Address [address] [place] [address] Phone [phone] Care Team Providers Care Statistical Modeler Name Role Phone Everardo SHAFER MD, Mirza Zeng Primary Care Provider [phone] Reason for Visit * Reason Onset Date Comments Test Results 05/31/2023 Encounter Details Date Type Department Care Team (Late st Contact Info) Description 05/31/2023 Telephone Family Practice [facility] [address] [place] [address] Mirza Mcgee III, MD [address] [place] [address] Test Results Allergies Active Allergy Reactions Criticality Noted Date Comments Amoxicillin Rash 09/27/2005 At time of knee replacement Oxycodone Other (Please comment) 10/11/2012 Severe mental change Oxycodone-Acetaminophe n Other (Please comment) 03/15/2010 Severe mental change documented as of this encounter (statuses as of 05/31/2023) Medications Medication Sig Dispensed Refills Start Date End Date Status PRESERVISION AREDS 2 PO CAPS one by mouth twice a day 0 Active DIURETIC TITRATION PLAN If no improvement on day 3, contact heart failure managing provider or [facility] dependency case manager 1 Each 0 01/30/2019 Active [...] MOUTH EVERY DAY 90 Tablet 3 08/22/2022 08/22/2023 Active Doxazosin Mesylate 8 MG Oral Tablet [...] for 10 days. 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 current use of systemic steroids 10/18 [...] as of this encounter (statuses as of 05/31/2023) Resolved Problems Problem Noted Date Diagnosed Date [...] 02/26/2018 03/07/2018 Bilateral leg edema 02/26/2018 04/14/20 Hypokalemia 02/26/2018 10/09/2018 Chronic nonspecific lung disease [...] lower extremities 11/24/2008 09/22/2015 Overview: seen at [facility] Anemia 05/13/2008 03/21/2017 Osteoarthritis of knee [...] as of this encounter (statuses as of 05/31/2023) Immunizations Name Administration Dates Next Due COVID-19 [...] encounter Miscellaneous Notes * Telephone Encounter - Naida Linder CMA - 05/31/2023 11:14 AM EST Patient aware and verbalized understanding * Telephone Encounter - Naida Linder CMA - 05/31/2023 11:11 AM EST ----- Message from Charmaine Lira MD sent at 05/31/2023 9:02 AM EST ----- Please let pt and know, labs from yesterday are stable. documented in this encounter Plan of Treatment Upcoming Encounters Date Type Department Care Team (Late st Contact Info) Description 06/02/2023 10:45 AM EST Imaging Radiology, [facility] [address] [place] [phone] 06/07/2023 8:00 AM EST Office Visit Ophthalmology, [facility] 132 [facility] [place] [address] Toney Davsi DO 132 [facility] [place] [address] 06/08/2023 1:30 PM EST Telemedicine Hematology/Oncology, [facility] 400 [facility] [place] [address] Cayden Sandoval MD 400 [place] [address] 06/12/2023 1:00 PM EST [facility] Visit [facility], [facility] 132 [facility] [place] [address] Amador Moreno PA-C 132 [facility] [place] [address] 06/23/2023 12:30 PM EST [facility] Visit [facility] [place], [facility] 132 [facility] [place] [address] Emeli Toledo RN 132 [facility] [place] [address] 07/06/2023 12:40 PM EST Office Visit Podiatry [facility] 132 [facility] [place] [address] Felicita Copeland DPM 132 [facility] [place] [address] 07/27/2023 12:40 PM EST Office Visit Gastroenterology, [address] [place] [address] Trina Plaza DO [facility] [place] [address] 08/03/2023 1:30 PM EST Office Visit Urology [facility] [place] [address] [facility] [place] [address] [place] [address] Ryan Cunningham MD 27 [facility] 270 [place] [address] 09/11/2023 2:00 PM EDT Appointment Radiology, [address] [phone] 09/11/2023 2:30 PM EDT PulmDiagnostic Pulmonary Function Lab [facility] [address] [place] [address] [address], [address] [place] [address] 09/11/2023 3:00 PM EDT Office Visit [facility]monary [facility] [place] [address] [place] [phone] Saul Moscoso MD [address] [facility] [place] [address] 10/25/2023 2:40 PM EDT Office Visit Family Practice [facility] 200 [facility] [place] [address] Mirza Mcgee III, MD 200 [facility] [place] [address] 05/02/2024 1:00 PM EST Office Visit Sleep Disorders, [address] [address] Alesha John MD [address] [place] [address] Health Maintenance Due Date Last Done Comments [...] Screening 02/03/2024 02/02/2023 CKD PHOS USE SMARTSET 85779 05/22/202404/27, 10/26/2022, 03/17/2022, Additional history exists CKD HGB USE SMARTSET 35176 05/30/202405/30, 05/30/2023, 05/27/2023, Additional history exists O2 ASSESSMENT COMPLETED IN PAST YEAR FOR COPD 05/30/2024 05/30/2023 Pneumococcal Vaccine: 65+ Years Completed 09/22/2015, 08/21/2001 VITAMIN D LEVEL ONCE IN A LIFETIME-USE SMARTSET# 45218 Completed 10/26/2022, 10/11/2021, 01/01/2019, Additional history exists Influenza Vaccine (FLU shot) Completed , 03/31/2022, 03/23/2021, Additional history exists GARDASIL-HPV IMMUNIZATION SERIES Aged Out No longer eligible based on patient's age to complete this topic MENINGOCOCCAL (MENACTRA/MENVEO) Aged Out No longer eligible based on patient's age to complete this topic documented as of this encounter Medical Devices Implanted Type Area Coal Equipment Operator Device Identifier Shelf Expiration Date Model / Serial / Lot Femur Nexgn E Right - [id number] Implanted:Qty: 1 on 05/12/2008 at OR [facility] Right: Knee [employer] 02/24/2018 00-5996-015 -[id number] / / [id number] Femur Nexgn E Left - [id number] Implanted:Qty: 1 on 11/19/2008 at OR [facility] Left: Knee [employer] 00-5996-015 -51 / / [id number] Sut Steel 6 M654g - [id number] Implanted:Qty: 6 on 07/11/2011 at OR [facility] N/A: Chest DO NOT USE 01/09/2016 / / [id number] Akreos Ao Micro Incision Lens Mi60l Implanted:Qty: 1 on 11/07/2013 at OR [facility] Right: Eye 06/25/2016 [id number] / [id number] / [id number] documented as of this encounter Advance Directives [...] the patient have Health Care Power of Financial Analyst? No Full Code 11/07/2013 9:36 AM 11/07/2013 1:54 PM This order reflects the patients wishes and were consensually agreed upon. Healthcare Agents on File Name Relationship Healthcare Agent Relationship Communication Soledad Peters Spouse Health Care Agen t (per Health Care Power of Financial Analyst document) [email or web address] Huma Hernández Adult Child First Alternate Health Care Agent (per Health Care Power of Financial Analyst document) [email or web address] Care Teams Statistical Modeler Relationship Specialty Start Date End Date Mirza Mcgee III, MD [address] [place] [address] PCP - General Family Medicine 08/11/18 documented as of this encounter
--- OUTSIDE RECORDS SUMMARY | 2023-07-04 20:40 | External Medical Summary | Summary of Care ---
Author Name Unknown Organization [facility] Address [address] [place] [address] Phone [phone] Care Team Providers Care Investigations Director Name Role Phone Everardo SHAFER MD, Mirza Zeng Primary Care Provider [phone] Reason for Visit * Reason Onset Date Comments Advice 05/25/2023 Prolia Delivery Encounter Details Date Type Department Care Team (Late st Contact Info) Description 05/25/2023 Telephone Rheumatology [facility] [address] [place] [address] Poncho Smith MD [address] [facility] [place] [address] Advice (Prolia Delivery) Allergies Active Allergy [...] failure managing provider or [facility] high risk case manager 1 Each 0 01/30/2019 Active [...] DNR (do not resuscitate) 05/21/2023 Constipation 05/21/2023 [place] (hard of hearing) 05/21/2023 Poor vision 05/21/2023 [...] thrombosis) 09/22/2015 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 (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 10/18 History [...] lower extremities 11/24/2008 09/22/2015 Overview: seen at [facility] Anemia 05/13/2008 03/21/2017 Osteoarthritis of [...] obstruction 2 08/23/2018 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 OSTEOARTHRO NOS-COX BRANSON SITE 02/2019 Overview: knees documented as of [...] looks like he was just discharged from [facility] on Monday * Telephone Encounter - Martha Li OSA - 05/25/2023 3:31 PM EST [place] - Patient Related Communication Reason for Call: Medication question/side effect (Physician): received call from Allen in regards to scheduling delivery of pts Prolia to the office. Please call pharmacy- [facility] SANJEEV Martinez documented in this encounter Plan of Treatment Upcoming Encounters Date Type Department Care Team (Late st Contact Info) Description 06/08/2023 1:30 PM EST Telemedicine Hematology/Oncology, [facility] [address] [place] [address] Cayden Sandoval MD 400 [facility] [address] 06/12/2023 1:00 PM EST Home Visit [facility], [facility] [address] [facility] [place] [address] Amador Moreno PA-C [address] [place] [address] 06/23/2023 12:30 PM EST Home Visit [facility] [address] [facility] [place] [address] Emeli Toledo, RN [address] [facility] [place] [address] 07/06/2023 12:40 PM EST Office Visit Podiatry [facility] [address] [facility] [place] [address] Felicita Copeland DPM [address] [facility] [place] [address] 07/27/2023 12:40 PM EST Office Visit Gastroenterology, [address] [place] [address] [place] [phone] Trina Plaza DO [address] [place] [address] 08/03/2023 1:30 PM EST Office Visit Urology Nora Pugh 27 [facility] 270 [place] [address] Ryan Cunningham MD 27 [facility] [place] 270 [place] [address] 09/11/2023 2:00 PM EDT Appointment Radiology, [facility] 400 [place] [phone] 09/11/2023 2:30 PM EDT PulmDiagnostic Pulmonary Function Lab [facility] [address] [facility] [place] [address] West, [address] [place] [address] 09/11/2023 3:00 PM EDT Office Visit Pulmonary Medicine [facility] [address] [facility] [place] [phone] Saul Moscoso MD 217 [place] [facility] [place] [address] 10/25/2023 2:40 PM EDT Office Visit Family Practice [facility] 200 [place] [address] Mirza Mcgee III, MD 200 [place] [address] 05/02/2024 1:00 PM EST Office Visit Sleep Disorders, [address] [place] [address] Alesha John MD 400 [place] [address] Health Maintenance Due Date Last Done Comments [...] Screening 02/03/2024 02/02/2023 CKD PHOS USE SMARTSET 41829 05/22/202404/27, 10/26/2022, 03/17/2022, Additional history exists CKD HGB USE SMARTSET 98213 05/30/202405/30, 05/30/2023, 05/27/2023, Additional history exists O2 ASSESSMENT COMPLETED IN PAST YEAR FOR COPD 05/30/2024 05/30/2023 Pneumococcal Vaccine: 65+ Years Completed 09/22/2015, 08/21/2001 VITAMIN D LEVEL ONCE IN A LIFETIME-USE SMARTSET# 80930 Completed 10/26/2022, 10/11/2021, 01/01/2019, Additional history exists Influenza Vaccine (FLU shot) Completed , 03/31/2022, 03/23/2021, Additional history exists GARDASIL-HPV IMMUNIZATION SERIES Aged Out No longer eligible based on patient's age to complete this topic MENINGOCOCCAL (MENACTRA/MENVEO) Aged Out No longer eligible based on patient's age to complete this topic documented as of this encounter Medical Devices Implanted Type Area Gastroenterology Professor Device Identifier Shelf Expiration Date Model / Serial / Lot Femur Nexgn E Right - [id number] Implanted:Qty: 1 on 05/12/2008 [place] [facility] Right: Knee [employer] 02/24/2018 00-5996-015 -52 / / [id number] Femur Nexgn E Left - [id number] Implanted:Qty: 1 on 11/19/2008 at [place] [facility] Left: Knee [employer] 00-5996-015 -51 / / [id number] Sut Steel 6 M654g - [id number] Implanted:Qty: 6 on 07/11/2011 at [place] [facility] N/A: Chest DO NOT USE 01/09/2016 / / [id number] Akreos Ao Micro Incision Lens Mi60l Implanted:Qty: 1 on 11/07/2013 at OR [facility] Right: Eye 06/25/2016 [id number] / [id number] / [id number] documented as of this encounter Advance Directives [...] the patient have Health Care Power of Orchestrator? No Full Code 11/07/2013 9:36 AM 11/07/2013 1:54 PM This order reflects the patients wishes and were consensually agreed upon. Healthcare Agents on File Name Relationship Healthcare Agent Relationship Communication Soledad Peters Spouse Health Care Agen t (per Health Care Power of Orchestrator document) [employer] Huma Hernández Adult Child First Alternate Health Care Agent (per Health Care Power of Orchestrator document) [email or web address] Care Teams Investigations Director Relationship Specialty Start Date End Date Mirza Mcgee III, MD 200 [place] [address] PCP - General Family Medicine 08/11/18 documented as of this encounter
--- OUTSIDE RECORDS SUMMARY | 2023-07-04 20:40 | External Medical Summary | Summary of Care ---
Author Name Unknown Organization [facility] Address [address] [place] [address] Phone [phone] Care Team Providers Care Rail Track Layer Name Role Phone Everardo SHAFER MD, Mirza Zeng Primary Care Provider [phone] Reason for Visit * Reason Onset Date Comments Appointment 05/29/2023 Encounter Details Date Type Department Care Team ([facility] st Contact Info) Description 05/29/2023 Telephone [facility] [place] [address] [place] [address] Services, Scheduling [address] [place] [address] Appointment (//) Allergies Active Allergy Reactions Criticality Noted Date Comments Amoxicillin Rash 09/27/2005 At time of knee replacement Oxycodone Other (Please comment) 10/11/2012 Severe mental change Oxycodone-Acetaminophe n Other (Please comment) 03/15/2010 Severe mental change documented as of this encounter (statuses as of 05/29/2023) Medications Medication Sig Dispensed Refills Start Date End Date Status PRESERVISION AREDS 2 PO CAPS one by mouth twice a day 0 Active DIURETIC TITRATION PLAN If no improvement on day 3, contact heart failure managing provider or [facility] pillowcase cleaner 1 Each 0 01/30/2019 Active aspirin enteric [...] and with activity/exertion 1 Each 03/31/2021 Active Robitussin Cough+Chest Fidel DM 20-200 MG/20ML Oral Liquid (Dextromethorphan- guaiFENesin) Take by mouth . 0 Active Potassium Chloride ER 10 MEQ Oral [...] 1.5 lpm bled into cpap 0 Active traMADol HCl 50 MG Oral Tablet (Ultram)Indication s:Cancer (HCC) Take 1 Tablet by mouth every 6 hours as needed for Pain, Moderate or Pain, Severe. 30 Tablet 0 05/11/2023 Active Acetaminophen 325 MG Oral Tablet (Tylenol) [...] Active traMADol HCl 50 MG Oral Tablet (Ultram) Take 1 Tablet by mouth every 8 hours as needed for Pain, Severe. 10 Tablet 0 05/27/2023 Active Hospital, Clinic, or Other Facility Administered [...] as of this encounter (statuses as of 05/29/2023) Active Problems Problem Noted Date Diagnosed Date Intractable nausea and vomiting 05/21/2023 Uncontrolled pain 05/21/2023 Degenerative lumbar spinal stenosis 05/21/2023 DNR (do not resuscitate) 05/21/2023 Constipation 05/21/2023 [place] (hard of hearing) 05/21/2023 Poor vision 05/21/2023 COPD, group C, by GOLD 2017 classification 05/08 Overview: Per COPD GOLD Classification Exudative age-related macula r degeneration, bilateral, with active choroidal neovascularization 10/13/2022 Sacroiliitis 09/07/2021 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 09/04/2020 Diabetes mellitus with stage 3 chronic kidney di sease 05/04/2020 Overview: Per CKD protocol Chronic respiratory [...] vein thrombosis) 09/22/2015 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 (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 10/18 [...] as of this encounter (statuses as of 05/29/2023) Resolved Problems Problem Noted Date Diagnosed Date [...] as of this encounter (statuses as of 05/29/2023) Immunizations Name Administration Dates Next Due COVID-19 [...] encounter Miscellaneous Notes * Telephone Encounter - J Luis Brown OSA - 05/29/2023 2:16 PM EST [facility] Engagement Attempt Engagement: Engagement Attempt 1: Contacted - Agreed to home-based services Scheduled appointment information: spoke to spouse agreed to [facility] enrollment: 06/12-AP, 06/23 RNCM, asked to have enrollments visit start after stops Home Information: No data was found Advance Care Planning (ACP): No data was found Has Living Will or Advance Directive: No data was found Anticipated Sub-Program: Focused Care Management (3-9 months) Confirmation of Sub-Program Type (by care steam and power supervisor): No data was found Handoff Information: Current care team notified via: No data was found Current telemonitoring equipment: No data was found documented in this encounter Plan of Treatment Upcoming Encounters Date Type Department Care Team (Late st Contact Info) Description 05/30/2023 2:00 PM EST Office Visit General Internal Medicine [facility] 200 [facility] [place] [address] Charmaine Lira MD 200 [facility] [place] [address] 06/02/2023 10:45 AM EST Imaging Radiology, [address] [place] [address] 06/07/2023 8:00 AM EST Office Visit Ophthalmology, [facility] [address] [place] [address] Toney Davis DO [address] [place] [address] 06/08/2023 1:30 PM EST Telemedicine Hematology/Oncology, [address] [address] Cayden Sandoval MD [address] [place] [address] 06/12/2023 1:00 PM EST [facility] Visit [facility] [place], [facility] [address] [place] [address] Amador Moreno PA-C [address] [place] [address] 06/23/2023 12:30 PM EST Home Visit [facility] [place], [facility] [address] [place] [address] Emeli Toledo RN [address] [place] [address] 07/06/2023 12:40 PM EST Office Visit Podiatry [facility] [address] [place] [address] Felicita Copeland, DPM [address] [place] [address] 07/27/2023 12:40 PM EST Office Visit Gastroenterology, [facility] [address] [facility] [phone] Trina Plaza DO [address] [place] [address] 08/03/2023 1:30 PM EST Office Visit Urology [facility] [place] [address] [place] [address] [place] [address] Ryan Cunningham MD [address] [place] [address] [place] [address] 09/11/2023 2:00 PM EDT Appointment Radiology, [address] [place] [address] 09/11/2023 2:30 PM EDT PulmDiagnostic Pulmonary Function Lab Harry Halley [place] [address] [place] [address] West, [address] [place] [address] 09/11/2023 3:00 PM EDT Office Visit Pulmonary Medicine [facility] [place] [address] [place] [phone] Saul Moscoso MD [address] [place] [address] 10/25/2023 2:40 PM EDT Office Visit Family Practice [facility] [place] [address] [place], [place] [address] Mirza Mcgee III, MD [address] [place], [place] [address] 05/02/2024 1:00 PM EST Office Visit Sleep Disorders, [facility] [address] [place] [address] Alesha John MD 400 [facility] [place] [address] Health Maintenance Due Date Last Done [...] Screening 02/03/2024 02/02/2023 CKD PHOS USE SMARTSET 19081 05/22/202404/27, 10/26/2022, 03/17/2022, Additional history exists CKD HGB USE SMARTSET 73666 05/27/202405/27, 05/26/2023, 05/25/2023, Additional history exists O2 ASSESSMENT COMPLETED IN PAST YEAR FOR COPD 05/27/2024 05/27/2023 Pneumococcal Vaccine: 65+ Years Completed 09/22/2015, 08/21/2001 VITAMIN D LEVEL ONCE IN A LIFETIME-USE SMARTSET# 37230 Completed 10/26/2022, 10/11/2021, 01/01/2019, Additional history exists Influenza Vaccine (FLU shot) Completed , 03/31/2022, 03/23/2021, Additional history exists GARDASIL-HPV IMMUNIZATION SERIES Aged Out No longer eligible based on patient's age to complete this topic MENINGOCOCCAL (MENACTRA/MENVEO) Aged Out No longer eligible based on patient's age to complete this topic documented as of this encounter Medical Devices Implanted Type Area Financial Business Analyst Device Identifier Shelf Expiration Date Model / Serial / Lot Femur Nexgn E Right - [id number] Implanted:Qty: 1 on 05/12/2008 at OR [facility] Right: Knee [employer] 02/24/2018 00-5996-015 -52 / / [id number] Femur Nexgn E Left - [id number] Implanted:Qty: 1 on 11/19/2008 at OR [facility] Left: Knee [employer] 00-5996-015 -51 / / [id number] Sut Steel 6 M654g - [id number] Implanted:Qty: 6 on 07/11/2011 at OR [facility] N/A: Chest DO NOT USE 01/09/2016 / / [id number] Akreos Ao Micro Incision Lens Mi60l Implanted:Qty: 1 on 11/07/2013 at OR [facility] Right: Eye 06/25/2016 [id number] / [id number] / [id number] documented as of this encounter Advance Directives [...] the patient have Health Care Power of Wedding Transportation Driver? No Full Code 11/07/2013 9:36 AM 11/07/2013 1:54 PM This order reflects the patients wishes and were consensually agreed upon. Healthcare Agents on File Name Relationship Healthcare Agent Relationship Communication Soledad Peters Spouse Health Care Agen t (per Health Care Power of Wedding Transportation Driver document) [email or web address] Huma Hernández Adult Child First Alternate Health Care Agent (per Health Care Power of Wedding Transportation Driver document) [email or web address] Care Teams Rail Track Layer Relationship Specialty Start Date End Date Mirza Mcgee III, MD [address] [place] [address] PCP - General Family Medicine 08/11/18 documented as of this encounter
--- OUTSIDE RECORDS SUMMARY | 2023-07-04 20:40 | External Medical Summary | Summary of Care ---
Author Name Unknown Organization [facility] Address [address] [place] [address] Phone [phone] Care Team Providers Care Overhead Cleaner Name Role Phone Everardo SHAFER MD, Mirza Zeng Primary Care Provider [phone] Reason for Visit * Reason Comments Outpatient Testing Encounter Details Date Type Department Care Team (Late st Contact Info) Description 05/30/2023 3:00 PM EST Laboratory Laboratory [facility] [address] [place] [phone] [facility] Scene [address] [place] [address] Prostate cancer metastatic to bone (HCC); Slow transit constipation Allergies Active Allergy Reactions Criticality Noted Date [...] failure managing provider or [facility] supportive employment case manager 1 Each 0 01/30/2019 Active [...] DNR (do not resuscitate) 05/21/2023 Constipation 05/21/2023 [place] (hard of hearing) 05/21/2023 Poor vision 05/21/2023 [...] Unspecified Formulation 03/06/2020,03/01/2019,03/20/2018,2016,03/24/2016,03/16/2015,03/10/2014,1 ,04/02/2012,04/29/2011, 010,03/17/2009,04/04/2008,05/02/2007,,05/10/2005,05/30/2003,07/12/19 Seasonal Influenza, Quadriva lent Hd (Fluzone Hd) [...] No 05/21/2023 documented as of this encounter Plan of Treatment Upcoming Encounters Date Type Department Care Team (Late st Contact Info) Description 06/02/2023 10:45 AM EST Imaging Radiology, [address] [place] [address] 06/07/2023 8:00 AM EST Office Visit Ophthal[facility], [facility] [address] [place] [address] Toney Davis, DO 132 [place] [address] 06/08/2023 1:30 PM EST Telemedicine Hematology/Oncology, [place] [address] [place] [address] Cayden Sandoval MD 400 [facility] [place] [address] 06/12/2023 1:00 PM EST [facility] Visit [facility] 132 [facility] [place], [place] [address] Amador Moreno PA-C [address] [facility] [place] [address] 06/23/2023 12:30 PM EST Home Visit [facility], [facility] 132 [facility] [place] [address] Emeli Toledo RN [address] [facility] [place] [address] 07/06/2023 12:40 PM EST Office Visit [facility] 132 [facility] [place], [place] [address] Felicita Copeland DPM [facility] [place] [address] 07/27/2023 12:40 PM EST Office Visit Gastroenterology, [facility] [address] [place] [phone] Trina Plaza DO [address] [facility] [place] [address] 08/03/2023 1:30 PM EST Office Visit Urology [facility] [place] [address] [facility] [address] [place] [address] Ryan Cunningham MD 27 [facility] 270 [place] [address] 09/11/2023 2:00 PM EDT Appointment Radiology, [facility] [address] [facility] [place] [phone] 09/11/2023 2:30 PM EDT PulmDiagnostic Pulmonary Function Lab [facility] [address] [place] [address] [address], [address] [place] [address] 09/11/2023 3:00 PM EDT Office Visit Pulmonary Medicine [place] [address] [place] [address] [place] [phone] Saul Moscoso MD [address] [place] [address] 10/25/2023 2:40 PM EDT Office Visit [facility] 200 [facility] [place] [address] Mirza Mcgee III, MD 200 [place] [address] 05/02/2024 1:00 PM EST Office Visit Sleep Disorders, [facility] [address] [facility] [place] [address] Alesha John MD 400 [place] [address] Pending Results Name Type Priority Associated Diagnoses Date /Time BASIC METABOLIC PANEL Lab Routine Prostate cancer metastatic to bone (HCC) Slow transit constipation 05/30/2023 2:56 PM EST Health Maintenance Due Date Last [...] Screening 02/03/2024 02/02/2023 CKD PHOS USE SMARTSET 54809 05/22/202404/27, 10/26/2022, 03/17/2022, Additional history exists CKD HGB USE SMARTSET 76658 05/27/202405/30, 05/30/2023, 05/27/2023, Additional history exists O2 ASSESSMENT COMPLETED IN PAST YEAR FOR COPD 05/27/2024 05/30/2023 Pneumococcal Vaccine: 65+ Years Completed 09/22/2015, 08/21/2001 VITAMIN D LEVEL ONCE IN A LIFETIME-USE SMARTSET# 53860 Completed 10/26/2022, 10/11/2021, 01/01/2019, Additional history exists Influenza Vaccine (FLU shot) Completed , 03/31/2022, 03/23/2021, Additional history exists GARDASIL-HPV IMMUNIZATION SERIES Aged Out No longer eligible based on patient's age to complete this topic MENINGOCOCCAL (MENACTRA/MENVEO) Aged Out No longer eligible based on patient's age to complete this topic documented as of this encounter Medical Devices Implanted Type Area Nuclear Unit Operator Device Identifier Shelf Expiration Date Model / Serial / Lot Femur Nexgn E Right - [id number] Implanted:Qty: 1 on 05/12/2008 at [place] [facility] [place]: Knee [employer] 02/24/2018 [id number] -[id number] / / [id number] Femur Nexgn E Left - [id number] Implanted:Qty: 1 on 11/19/2008 at [place] [facility] Left: Knee [employer] [id number] -[id number] / / [id number] Sut Steel 6 M654g - [id number] Implanted:Qty: 6 on 07/11/2011 at [place] [facility] N/A: Chest DO NOT USE 01/09/2016 / / [id number] Akreos Ao Micro Incision Lens Mi60l Implanted:Qty: 1 on 11/07/2013 at OR [facility] Right: Eye 06/25/2016 [id number] / [id number] / [id number] documented as of this encounter Procedures Procedure Name Priority Date/Time Associated Diagnosis Comments DIFFERENTIAL, AUTOMATED Routine 05/30/2023 2:56 PM EST Prostate cancer metastatic to bone (HCC) CBC Routine 05/30/2023 2:56 PM EST Prostate cancer metastatic to bone (HCC) CBC Routine 05/30/2023 2:56 PM EST Prostate cancer metastatic to bone (HCC) documented in this encounter Results * (ABNORMAL) DIFFERENTIAL, AUTOMATED (05/30/2023 2:56 PM EST) WBC 9.80 4.00 - 10.80 K/uL 05/30/2023 3:06 PM EST [facility] [place] 56-02 Neutrophils % 78.3(H) 40.0 - 75.0 % 05/30/2023 3:06 PM EST [facility] [place] 56-02 Lymphocytes % 8.3(L) 18.0 - 42.0 % 05/30/2023 3:06 PM EST [facility] 56-02 Monocytes % 11.2(H) 1.0 - 11.0 % 05/30/2023 3:06 PM EST [facility] 56-02 Eosinophils % 2.0 0.0 - 6.0 % 05/30/2023 3:06 PM EST [facility] [place] 56-02 Basophils % 0.2 0.0 - 2.0 % 05/30/2023 3:06 PM EST [facility] 56-02 Absolute Neutrophils 7.67 1.80 - 7.70 K/uL 05/30/2023 3:06 PM [facility] 56 Absolute Lymphocytes 0.81(L) 1.00 - 4.80 K/ul 05/30/2023 3:06 PM [facility] 56 Absolute Monocytes 1.10 0.00 - 1.10 K/uL 05/30/2023 3:06 PM [facility] 56 Absolute Eosinophils 0.20 0.00 - 0.70 K/uL 05/30/2023 3:06 PM [facility] 56 Absolute Basophils 0.02 0.00 - 0.20 K/uL 05/30/2023 3:06 PM [facility] 56 Blood Venous blood specimen / Unknown Venipuncture / Unknown 05/30/2023 2:56 PM EST 05/30/2023 2:56 PM EST Charmaine Lira MD LAB BLOOD ORDERA BLES [facility] [address] [place] [address] * CBC (05/30/2023 2:56 PM EST) WBC 9.80 4.00 - 10.80 K/uL 05/30/2023 3:06 PM [facility] RBC 4.77 4.50 - 5.25 M/uL 05/30/2023 3:06 PM [facility] 56 HGB 14.4 14.0 - 16.8 g/dL 05/30/2023 3:06 PM [facility] 56 HCT 44.0 40.0 - 48.4 % 05/30/2023 3:06 PM [facility] 56 MCV 92.2 82.0 - 99.5 fL 05/30/2023 3:06 PM [facility] 56 MCH 30.2 27.0 - 34.0 pg 05/30/2023 3:06 PM [facility] 56 MCHC 32.7 32.0 - 36.0 g/dL 05/30/2023 3:06 PM [facility] 56 RDW 14.2 11.5 - 15.5 % 05/30/2023 3:06 PM EST [facility] 56 PLT 182 140 - 400 K/uL 05/30/2023 3:06 PM EST [facility] 56 MPV 11.0 6.6 - 11.1 fL 05/30/2023 3:06 PM EST [facility] 56 Blood Venous blood specimen / Unknown Venipuncture / Unknown 05/30/2023 2:56 PM EST 05/30/2023 2:56 PM EST Charmaine Lira MD LAB BLOOD ORDERA BLES [address] [place] [address] documented in this encounter Visit Diagnoses Diagnosis Prostate cancer metastatic to bone (HCC) Slow transit constipation documented in this encounter Advance Directives Latest [...] the patient have Health Care Power of Vocational Nursing Instructor? No Full Code 11/07/2013 9:36 AM 11/07/2013 1:54 PM This order reflects the patients wishes and were consensually agreed upon. Healthcare Agents on File Name Relationship Healthcare Agent Relationship Communication Soledad Peters Spouse Health Care Agen t (per Health Care Power of Vocational Nursing Instructor document) [email or web address] Huma Hernández Adult Child First Alternate Health Care Agent (per Health Care Power of Vocational Nursing Instructor document) [email or web address] Care Teams Overhead Cleaner Relationship Specialty Start Date End Date Mirza Mcgee III, MD [address] [place] [id number] PCP - General Family Medicine 08/11/18 documented as of this encounter
--- OUTSIDE RECORDS SUMMARY | 2023-07-04 20:41 | External Medical Summary | Summary of Care ---
Author Name Unknown Organization [facility] Address [address] [place] [address] Phone [phone] Care Team Providers Care Boat Engine Mechanic Name Role Phone Everardo SHAFER MD, Mirza Zeng Primary Care Provider [phone] Reason for Visit * Reason Onset Date Comments Appointment 05/29/2023 Encounter Details Date Type Department Care Team ([facility] st Contact Info) Description 05/29/2023 Telephone [facility] [place] [address] [place] [address] Services, Scheduling [address] [place] [address] Appointment (/) Allergies Active Allergy Reactions Criticality Noted Date [...] failure managing provider or [facility] major case detective 1 Each 0 01/30/2019 Active aspirin enteric [...] DNR (do not resuscitate) 05/21/2023 Constipation 05/21/2023 [place] (hard of hearing) 05/21/2023 Poor vision 05/21/2023 [...] vein thrombosis) 09/22/2015 PMR (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) 10/18/2012 [facility] current use of systemic steroids 10/18 History [...] extremities 11/24/2008 09/22/2015 Overview: seen at [facility] ER Anemia 05/13/2008 03/21/2017 Osteoarthritis [...] - J Luis Brown OSA - 05/29/2023 11:20 AM EST Call to son, who answered phone, asked for a CB later today, will call back at that point documented in this encounter Plan of Treatment Upcoming Encounters Date Type Department Care Team (Late st Contact Info) Description 05/30/2023 2:00 PM EST Office Visit General Internal Medicine [facility] [address] [place] [address] [place], [place] [phone] Charmaine [facility]ira MD 200 [facility] [address] 06/02/2023 10:45 AM EST Imaging Radiology, [address] [place] [address] 06/07/2023 8:00 AM EST Office Visit Ophthalmology, [facility] 132 [facility] [place] [address] Toney Davis, DO 132 [facility] [place] [address] 06/08/2023 1:30 PM EST Telemedicine Hematology/Oncology, [facility] 400 [facility] [place] [address] Cayden Sandoval MD 400 [place] [address] 07/06/2023 12:40 PM EST Office Visit Podiatry [facility] 132 [facility] [place] [address] Felicita Copeland DPM 132 [facility] [address] 07/27/2023 12:40 PM EST Office Visit Gastroenterology, [facility] 310 [facility] [place] [phone] Trina Plaza, DO [facility] [place] [address] 08/03/2023 1:30 PM EST Office Visit Urology [place] [address] [facility] 270 [place] [address] Ryan Cunningham MD 27 [facility] 270 [place] [address] 09/11/2023 2:00 PM EDT Appointment Radiology, [facility] 400 [facility] [place] [phone] 09/11/2023 2:30 PM EDT PulmDiagnostic Pulmonary Function Lab [facility] [address] [place] [address] [address], [address] [place] [address] 09/11/2023 3:00 PM EDT Office Visit Pulmonary Medicine [facility] [address] [facility] [place] [phone] Saul Moscoso MD 217 [address] [facility] [place] [address] 10/25/2023 2:40 PM EDT Office Visit Family [facility] 200 [place] [address] Mirza Mcgee III, MD 200 [facility] [place], [place] [address] 05/02/2024 1:00 PM EST Office Visit Sleep Disorders, [address] [place] [address] Alesha John MD 400 [place] [address] Health Maintenance Due Date Last Done Comments [...] Screening 02/03/2024 02/02/2023 CKD PHOS USE SMARTSET 47239 05/22/202404/27, 10/26/2022, 03/17/2022, Additional history exists CKD HGB USE SMARTSET 96838 05/27/202405/27, 05/26/2023, 05/25/2023, Additional history exists O2 ASSESSMENT COMPLETED IN PAST YEAR FOR COPD 05/27/2024 05/27/2023 Pneumococcal Vaccine: 65+ Years Completed 09/22/2015, 08/21/2001 VITAMIN D LEVEL ONCE IN A LIFETIME-USE SMARTSET# 94962 Completed 10/26/2022, 10/11/2021, 01/01/2019, Additional history exists Influenza Vaccine (FLU shot) Completed , 03/31/2022, 03/23/2021, Additional history exists GARDASIL-HPV IMMUNIZATION SERIES Aged Out No longer eligible based on patient's age to complete this topic MENINGOCOCCAL (MENACTRA/MENVEO) Aged Out No longer eligible based on patient's age to complete this topic documented as of this encounter Medical Devices Implanted Type Area Paralegal Specialist Device Identifier Shelf Expiration Date Model / Serial / Lot Femur Nexgn E Right - [id number] Implanted:Qty: 1 on 05/12/2008 at [place] [facility] Right: Knee [employer] 02/24/2018 00-5996-015 -[id number] / / [id number] Femur Nexgn E Left - [id number] Implanted:Qty: 1 on 11/19/2008 at [place] [facility] Left: Knee [employer] 00-5996-015 -51 / / [id number] Sut Steel 6 M654g - [id number] Implanted:Qty: 6 on 07/11/2011 at [place] [facility] N/A: Chest DO NOT USE 01/09/2016 / / [id number] Akreos Ao Micro Incision Lens Mi60l Implanted:Qty: 1 on 11/07/2013 at OR [facility] Right: Eye 06/25/2016 [id number] / [id number] / [id number] documented as of this encounter Advance Directives [...] the patient have Health Care Power of Hat And Cap Parts Cutter Hand? No Full Code 11/07/2013 9:36 AM 11/07/2013 1:54 PM This order reflects the patients wishes and were consensually agreed upon. Healthcare Agents on File Name Relationship Healthcare Agent Relationship Communication Soledad Peters Spouse Health Care Agen t (per Health Care Power of Hat And Cap Parts Cutter Hand document) [email or web address] Huma Hernández Adult Child First Alternate Health Care Agent (per Health Care Power of Hat And Cap Parts Cutter Hand document) [email or web address] Care Teams Boat Engine Mechanic Relationship Specialty Start Date End Date Mirza Mcgee III, MD 200 [place] [address] PCP - General Family Medicine 08/11/18 documented as of this encounter
--- OUTSIDE RECORDS SUMMARY | 2023-07-04 20:41 | External Medical Summary ---
Author Name Unknown Address Unknown Organization : Laboratory Report Ordering Provider Test Date Status BREONNA GARCIA 05/24/2023 21:19:17 Final Observation Date Value Abnormality Reference (Units ) Status Glucose Point of Care 05/24/2023 21:19:17 88 70-120 (mg/dL) Final Performing Location
--- OUTSIDE RECORDS SUMMARY | 2023-07-04 20:41 | External Medical Summary ---
Author Name Unknown Address Unknown Organization K1F:LABORATORY [facility] - [address] [place] [address] Laboratory Report Ordering Provider Test Date Status CARLEE EDOUARD 05/24/2023 06:24:00 Final Observation Date Value Abnormality Reference (Units ) Status WBC, Total 05/24/2023 06:24:00 5.93 4.00-10.80 (K/uL) Final RBC 05/24/2023 06:24:00 4.60 4.50-5.25 (M/uL) Final Hemoglobin 05/24/2023 06:24:00 13.9 Below low normal 14.0-16.8 (g/dL) Final HCT 05/24/2023 06:24:00 41.5 40.0-48.4 (%) Final MCV 05/24/2023 06:24:00 90.2 82.0-99.5 (fL) Final MCH 05/24/2023 06:24:00 30.2 27.0-34.0 (pg) Final MCHC 05/24/2023 06:24:00 33.5 32.0-36.0 (g/dL) Final RDW 05/24/2023 06:24:00 13.4 11.5-15.5 (%) Final Platelets 05/24/2023 06:24:00 166 140-400 (K/uL) Final MPV 05/24/2023 06:24:00 11.2 6.6-11.1 (fL) Final Nucleated erythrocytes/100 leukocytes [Ratio] in Blood by Automated count 05/24/2023 06:24:00 0 <=0 (/100 WBCs) Final Performing Location LABORATORY [facility] - [address] [place] [address]
--- OUTSIDE RECORDS SUMMARY | 2023-07-04 20:41 | External Medical Summary ---
Author Name Unknown Address Unknown Organization K1F:LABORATORY [facility] - [address] [place] [address] Laboratory Report Ordering Provider Test Date Status BREONNA GARCIA 05/26/2023 05:05:00 Final Observation Date Value Abnormality Reference (Units ) Status WBC, Total 05/26/2023 05:05:00 5.95 4.00-10.80 (K/uL) Final RBC 05/26/2023 05:05:00 4.63 4.50-5.25 (M/uL) Final Hemoglobin 05/26/2023 05:05:00 13.9 Below low normal 14.0-16.8 (g/dL) Final HCT 05/26/2023 05:05:00 42.7 40.0-48.4 (%) Final MCV 05/26/2023 05:05:00 92.2 82.0-99.5 (fL) Final MCH 05/26/2023 05:05:00 30.0 27.0-34.0 (pg) Final MCHC 05/26/2023 05:05:00 32.6 32.0-36.0 (g/dL) Final RDW 05/26/2023 05:05:00 13.5 11.5-15.5 (%) Final Platelets 05/26/2023 05:05:00 184 140-400 (K/uL) Final MPV 05/26/2023 05:05:00 10.8 6.6-11.1 (fL) Final Nucleated erythrocytes/100 leukocytes [Ratio] in Blood by Automated count 05/26/2023 05:05:00 0 <=0 (/100 WBCs) Final Performing Location LAB[facility]ATORY [facility] - [address] [place] [address]
--- OUTSIDE RECORDS SUMMARY | 2023-07-04 20:41 | External Medical Summary ---
Author Name Unknown Address Unknown Organization K1F:LABORATORY [facility] - [address] [place] [address] Laboratory Report Ordering Provider Test Date Status BREONNA GARCIA 05/27/2023 07:12:00 Final Observation Date Value Abnormality Reference (Units ) Status BUN 05/27/2023 07:12:00 12 6-20 (mg/dL) Final Creatinine 05/27/2023 07:12:00 0.8 0.6-1.2 (mg/dL) Final Glomerular filtration rate/1.73 sq M.predicted [Volume Rate/Area] in Serum, Plasma or Blood by Creatinine-based formula (CKD-EPI) 05/27/2023 07:12:00 86 >=60 (mL/min) Final eGFR is calculated based on the CKD-EPI 2020 equation SODIUM 05/27/2023 07:12:00 139 135-146 (m mol/L) Final Potassium 05/27/2023 07:12:00 3.6 3.5-5.1 (m mol/L) Final Cl 05/27/2023 07:12:00 104 98-107 (mm ol/L) Final CO2 05/27/2023 07:12:00 23 22-32 (mmo l/L) Final Anion gap 05/27/2023 07:12:00 12 7-15 (mmol /L) Final Glucose 05/27/2023 07:12:00 112 70-120 (mg /dL) Final Calcium 05/27/2023 07:12:00 8.1 Below low normal 8.4 -10.2 (mg/dL) Final Performing Location LABORATORY [facility] - [address] [place] [address]
--- OUTSIDE RECORDS SUMMARY | 2023-07-04 20:41 | External Medical Summary ---
Author Name Unknown Address Unknown Organization : Laboratory Report Ordering Provider Test Date Status BREONNA GARCIA 05/25/2023 11:42:58 Final Observation Date Value Abnormality Reference (Units ) Status Glucose Point of Care 05/25/2023 11:42:58 107 70-120 (mg/dL) Final Performing Location
--- OUTSIDE RECORDS SUMMARY | 2023-07-04 20:41 | External Medical Summary ---
Author Name Unknown Address Unknown Organization : Laboratory Report Ordering Provider Test Date Status BREONNA GARCIA 05/23/2023 21:26:55 Final Observation Date Value Abnormality Reference (Units ) Status Glucose Point of Care 05/23/2023 21:26:55 129 Above high normal 70-120 (mg/dL) Final Performing Location
--- OUTSIDE RECORDS SUMMARY | 2023-07-04 20:41 | External Medical Summary ---
Author Name Unknown Address Unknown Organization K1F:LABORATORY [facility] - [address] [place] [address] Laboratory Report Ordering Provider Test Date Status BREONNA GARCIA 05/25/2023 07:04:00 Final Observation Date Value Abnormality Reference (Units ) Status WBC, Total 05/25/2023 07:04:00 5.85 4.00-10.80 (K/uL) Final RBC 05/25/2023 07:04:00 4.63 4.50-5.25 (M/uL) Final Hemoglobin 05/25/2023 07:04:00 14.1 14.0-16.8 (g/dL) Final HCT 05/25/2023 07:04:00 42.2 40.0-48.4 (%) Final MCV 05/25/2023 07:04:00 91.1 82.0-99.5 (fL) Final MCH 05/25/2023 07:04:00 30.5 27.0-34.0 (pg) Final MCHC 05/25/2023 07:04:00 33.4 32.0-36.0 (g/dL) Final RDW 05/25/2023 07:04:00 13.3 11.5-15.5 (%) Final Platelets 05/25/2023 07:04:00 175 140-400 (K/uL) Final MPV 05/25/2023 07:04:00 11.3 6.6-11.1 (fL) Final Nucleated erythrocytes/100 leukocytes [Ratio] in Blood by Automated count 05/25/2023 07:04:00 0 <=0 (/100 WBCs) Final Performing Location LABORATORY [facility] - [address] [place] [address]
--- OUTSIDE RECORDS SUMMARY | 2023-07-04 20:41 | External Medical Summary ---
Author Name Unknown Address Unknown Organization K1F:LABORATORY [facility] - [address] [place] [address] Laboratory Report Ordering Provider Test Date Status CARLEE EDOUARD 05/24/2023 06:24:00 Final Observation Date Value Abnormality Reference (Units ) Status BUN 05/24/2023 06:24:00 19 6-20 (mg/dL) Final Creatinine 05/24/2023 06:24:00 1.0 0.6-1.2 (mg/dL) Final Glomerular filtration rate/1.73 sq M.predicted [Volume Rate/Area] in Serum, Plasma or Blood by Creatinine-based formula (CKD-EPI) 05/24/2023 06:24:00 72 >=60 (mL/min) Final eGFR is calculated based on the CKD-EPI 2020 equation SODIUM 05/24/2023 06:24:00 139 135-146 (m mol/L) Final Potassium 05/24/2023 06:24:00 3.2 Below low normal 3.5 -5.1 (mmol/L) Final Cl 05/24/2023 06:24:00 100 98-107 (mm ol/L) Final CO2 05/24/2023 06:24:00 27 22-32 (mmo l/L) Final Anion gap 05/24/2023 06:24:00 12 7-15 (mmol /L) Final Glucose 05/24/2023 06:24:00 107 70-120 (mg /dL) Final Calcium 05/24/2023 06:24:00 7.9 Below low normal 8.4 -10.2 (mg/dL) Final Performing Location LABORATORY [facility] - [address] [place] [address]
--- OUTSIDE RECORDS SUMMARY | 2023-07-04 20:41 | External Medical Summary ---
Author Name Unknown Address Unknown Organization : Laboratory Report Ordering Provider Test Date Status BREONNA GARCIA 05/24/2023 07:21:32 Final Observation Date Value Abnormality Reference (Units ) Status Glucose Point of Care 05/24/2023 07:21:32 98 70-120 (mg/dL) Final Performing Location
--- OUTSIDE RECORDS SUMMARY | 2023-07-04 20:41 | External Medical Summary ---
Author Name Unknown Address Unknown Organization K1F:LABORATORY [facility] - [address] [place] [address] Laboratory Report Ordering Provider Test Date Status BREONNA GARCIA 05/26/2023 05:05:00 Final Observation Date Value Abnormality Reference (Units ) Status BUN 05/26/2023 05:05:00 18 6-20 (mg/dL) Final Creatinine 05/26/2023 05:05:00 1.1 0.6-1.2 (mg/dL) Final Glomerular filtration rate/1.73 sq M.predicted [Volume Rate/Area] in Serum, Plasma or Blood by Creatinine-based formula (CKD-EPI) 05/26/2023 05:05:00 66 >=60 (mL/min) Final eGFR is calculated based on the CKD-EPI 2020 equation SODIUM 05/26/2023 05:05:00 142 135-146 (m mol/L) Final Potassium 05/26/2023 05:05:00 3.8 3.5-5.1 (m mol/L) Final Cl 05/26/2023 05:05:00 105 98-107 (mm ol/L) Final CO2 05/26/2023 05:05:00 27 22-32 (mmo l/L) Final Anion gap 05/26/2023 05:05:00 10 7-15 (mmol /L) Final Glucose 05/26/2023 05:05:00 93 70-120 (mg /dL) Final Calcium 05/26/2023 05:05:00 8.4 8.4-10.2 ( mg/dL) Final Performing Location LABORATORY [facility] - [address] [place] [address]
--- OUTSIDE RECORDS SUMMARY | 2023-07-04 20:41 | External Medical Summary | Summary of Care ---
Author Name Unknown Organization [facility] Address [address] [place] [address] Phone [phone] Care Team Providers Care Poultry Vaccinator Name Role Phone Everardo SHAFER MD, Mirza Zeng Primary Care Provider [phone] Reason for Visit * Reason Comments Vomiting * Auth/Cert Specialty Diagnoses / Procedures Referred By Raul t Referred To Contact Referral ID Status Reason Start Date Expiration Date Visits Re quested Visits Authorized [id number] Encounter Details Date Type Department Care Team (Late st Contact Info) Description 05/21/2023 3:55 AM EST - 05/27/2023 1:44 PM EST Hospital Encounter 3B [facility] 3rd Floor [address] [place] [address] [phone] Brenna Elena MD [address] [place] [phone] Augustina Giron MD [address] [place], [place] [address], [place] [id number] Bismark Stewart MD [address] [place] [address] [phone] Kaden Baumann MD [address] [place] [address] [phone] Various: EKG,KRAVS Discharge Disposition: Home with Services Allergies Active Allergy Reactions Criticality Noted Date Comments Amoxicillin Rash 09/27/2005 At time of knee replacement Oxycodone Other (Please comment) 10/11/2012 Severe mental change Oxycodone-Acetaminophe n Other (Please comment) 03/15/2010 Severe mental change documented as of this encounter (statuses as of 05/28/2023) Medications Medication Sig Dispensed Refills Start Date End Date Status PRESERVISION AREDS 2 PO CAPS one by mouth twice a day 0 Active DIURETIC TITRATION PLAN If no improvement on day 3, contact heart failure managing provider or [facility] at home mattress spring encaser 1 Each 0 9 Active aspirin enteric [...] by mouth daily. 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 0 Active Potassium [...] traMADol HCl 50 MG Oral Tablet (Ultram)Indications :Cancer (HCC) Take 1 Tablet by mouth every 6 hours as needed for Pain, Moderate or Pain, Severe. 30 Tablet 0 3 Active Acetaminophen 325 MG Oral Tablet (Tylenol) Take 3 Tablets by mouth in the morning and 3 Tablets at noon and 3 Tablets before bedtime. Do all this for 10 days. 90 Tablet 0 3 06/06/20 23 Active Baclofen 5 MG Oral Tablet (Lioresal) Take 1 Tablet by mouth in the morning and 1 Tablet in the evening. 30 Tablet 0 3 Active Docusate Sodium 100 MG Oral Capsule [...] needed for Pain, Severe. 10 Tablet 0 3 Active Acetaminophen 500 MG Oral TabletIndications:p ain Take 1 Tablet by mouth every 6 hours as needed. 0 05/21/20 23 Discontinued predniSONE 20 MG Oral Tablet (Deltasone)Indicati ons:Acute cough,COPD exacerbation (HCC) Take 2 Tablets by mouth in the morning for 5 days. 10 Tablet 0 3 05/27/20 23 Discontinued Doxycycline Hyclate 100 MG Oral CapsuleIndications: Acute cough,COPD exacerbation (HCC) Take 1 Capsule by mouth in the morning and 1 Capsule before bedtime. Do all this for 10 days. Until gone.. 20 Capsule 0 3 05/27/20 23 Discontinued Cefdinir 300 MG Oral Capsule (Omnicef)Indication s:Pneumonia of right lower lobe due to infectious organism,COPD, group C, by GOLD 2017 classification (HCC) Take 1 Capsule by mouth in the morning and 1 Capsule before bedtime. Do all this for 10 days. (Aware allergy to amox-rash).. 20 Capsule 0 3 05/27/20 23 Discontinued Fluconazole 100 MG Oral Tablet (Diflucan) Take 1 Tablet by mouth in the morning. 2 for 1 day, then 1 .. 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 Never true 03/01/20 Within the past 12 months, t he food you bought just didn't last and you didn't have money to get more. Never true 03/01/2023 Sex and Gender Information Value Date Recorded Sex Assigned at Not on file Gender Identity Not on file Sexual Orientation Not on file Job Start Date Occupation Industry Not on file Not on file Not on file documented as of this encounter Last Filed Vital Signs Vital Sign Reading Time Taken Comments Blood Pressure 143/65 05/27/2023 7:32 AM EST Pulse 65 05/27/2023 9:12 AM EST Temperature 36.7 C (98.1 F) 05/27/2023 7:32 AM ES T Respiratory Rate 18 05/27/2023 8:07 AM EST Oxygen Saturation 91% 05/27/2023 8:07 AM EST Inhaled Oxygen Concentration - - Weight 103.7 kg (228 lb 9.6 oz) 05/26/2023 5:48 AM EST Height 172.7 cm (5' 8") 05/21/2023 9:47 AM EST Body Mass Index 34.76 05/21/2023 9:47 AM EST documented in this encounter Functional [...] 05/21/2023 documented as of this encounter Discharge Summaries * Kaden Baumann MD - 05/27/2023 12:33 PM EST Images from the original note were not included. [address] [address] Admission Date: 05/21/2023 Discharge Date: 05/27/2023 RECOMMENDED TO DO FOR NEXT PROVIDER(S): Cbc and bmp in 3-5 days. To be ordered and followed up by PCP. REASON(S) FOR MEDICATION CHANGE(S): - laxative regimen adjusted. - pain regimen adjusted. DISPOSITION ON DISCHARGE: home with health services Active Hospital Problems Diagnosis *Principal Diagnosis - Uncontrolled pain Intractable nausea and vomiting Degenerative lumbar spinal stenosis DNR (do not resuscitate) Constipation TUNUNAK (hard of hearing) Poor vision COPD, group C, by GOLD 2017 classification ([facility]) 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) Chronic respiratory failure with hypoxia (HCC) SANJEEV (obstructive sleep apnea) Barretts esophagus Type 2 diabetes mellitus with diabetic polyneuropathy (HCC) Chronic diastolic heart failure (HCC) Prostate cancer metastatic to bone (HCC) PMR (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) (HCC) History of Hodgkin's disease Resolved Hospital Problems No resolved problems to display. 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 Also [id number] saline bolus. Admission requested for further management and monitoring. 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 * DIFFERENTIAL AND PLAN: Admit med-surg observation Uncontrolled pain- --Tylenol 975mg q 8 hrs --ketorolac 15mg IV q 8 hrs mild pain --Morphine 2mg IV q 3 hr mod/severe pain --monitor therapeutic response and adjust accordingly Constipation --give dulcolax supp now and then daily prn. --Miralax daily Nausea/vomiting --zofran 4mg IV q 4 hours prn --Given 2L fluids in ED, will encourage oral fluid intake and monitor. H/o CHF with mild pitting edema on exam today HTN/CHF --Slightly dry d/t N/V and poor intake. --hold PROMOTIONS SPECIALIST lasix, potassium and spironolactone for now. Monitor close for restart. --monitor I&O and daily wt --continue amlodipine, atenolol, benazepril Prostate cancer with mets to bone --keep follow up PET 06/02 --continue doxazosin, finasteride PMR --continue daily prednisone 5mg Colorado's esophagus --continue omeprazole DM-(hgba1c 04/14/23--6.5) --Sliding scale coverage qac and qhs COPD- --stable --continue breo and prn duoneb for shortness of breath SANJEEV --CPAP qhs Chronic resp failure --titrate oxygen to maintain SpO2 >90% PHARMACOLOGIC VTE PROPHYLAXIS: Enoxaparin CODE STATUS: No Code HOSPITAL COURSE (focused): Patient was admitted and monitored in med tele unit. He was given iv hydration initially as well asmedications for nausea and vomiting. He slowly started to tolerate oral diet well. However, he was not having BMs. He was placed on a bowel regimen. This was changed over the course of his stay. Eventually after scheduling oral laxative multiple times a day, he had multiple large BMs. This gave parish lot of relief. Of note, he also has been having issues with his back pain. I did start him on low dose baclofen, which he tolerated well and did help some with his back spasm. This dose can be further up-titrated by his PCP on an outpatient basis. He was receiving prn morphine for severe pain, but this was changed to prn tramadol on discharge. Of note, he ambulated well in the hallway with walker and assistance. Care mx did see patient and speak to family. Home health was set up on discharge. On day of discharge, vitals and PE were stable BP 143/65 | Pulse 65 | Temp 36.7 C (98.1 F) (Temporal Artery) | Resp 18 | Ht 1.727 m (5' 8") | Wt 103.7 kg (228 lb 9.6 oz) | SpO2 91% | BMI 34.76 kg/m | BSA 2.23 m He was discharged in a stable condition. Detailed discharge instructions provided to patient and family. Both and daughter updated in detail at bedside regarding his condition and plan of care. Operations & Procedures: none Complications: none significant Significant Lab and Imaging Results: Results for orders placed or performed during the hospital encounter of 05/21/23 BASIC METABOLIC PANEL Result Value Ref Range BUN 11 6 - 20 mg/dL Creatinine 0.8 0.6 - 1.2 mg/dL Estimated Glomerular Filtration Rate 86 >=60 mL/min Sodium 135 135 - 146 mmol/L Potassium 3.8 3.5 - 5.1 mmol/L Chloride 98 98 - 107 mmol/L CO2 23 22 - 32 mmol/L Anion Gap 14 7 - 15 mmol/L Glucose 117 70 - 120 mg/dL Calcium 8.7 8.4 - 10.2 mg/dL CULTURE, BLOOD Result Value Ref Range Blood Culture Growth No growth CULTURE, BLOOD Result Value Ref Range Blood Culture Growth No growth LACTATE Result Value Ref Range Lactate 1.7 0.4 - 2.0 mmol/L URINALYSIS, REFLEX TO MICROSCOPIC Result Value Ref Range Color, Urine Yellow Light Yellow, Yellow, Dark Yellow Clarity, Urine Clear Clear Glucose, Urine Negative Negative mg/dL Bilirubin, Urine Negative Negative Ketone, Urine 40 (A) Negative mg/dL Specific [place], Urine 1.011 1.003 - 1.030 Blood, Urine Negative Negative pH, Urine 8.0 (H) 5.0 - 7.5 Units Protein, Urine Trace (A) Negative mg/dL Urobilinogen, Urine 1.0 0.2, 1.0 mg/dL Nitrite, Urine Negative Negative Esterase, Urine Negative Negative Comment, Urine LIPASE Result Value Ref Range Lipase 28 13 - 60 U/L HEPATIC FUNCTION PANEL Result Value Ref Range Albumin 3.7 (L) 3.8 - 5.0 g/dL AST 51 (H) 10 - 50 U/L Alkaline Phosphatase 120 35 - 130 U/L ALT 24 10 - 50 U/L Bilirubin, Total 0.9 <=1.2 mg/dL Bilirubin, Direct 0.2 0.0 - 0.3 mg/dL Protein 7.2 6.0 - 8.3 g/dL BLOOD GAS, VENOUS Result Value Ref Range Temperature 37.0 C pH, Venous 7.496 (H) 7.320 - 7.430 units pCO2, Venous 34.5 (L) 40.0 - 60.0 mmHg pO2, Venous 46.6 25.0 - 50.0 mmHg Base Excess, Venous 3.8 (H) -2.0 - 2.0 mmol/L Hemoglobin, Whole Blood 15.4 14.0 - 16.8 g/dL Oxyhemoglobin, Venous 80.6 40.0 - 85.0 % total Hgb Carboxyhemoglobin, Whole Blood 1.5 <=1.5 % total Hgb Methemoglobin, Whole Blood 0.3 <=1.5 % total Hgb Reduced Hemoglobin, Venous 17.6 % total Hgb O2 Content, Venous 17.4 7.0 - 18.0 %vol Bicarbonate, Whole Blood 26.4 23.0 - 31.0 mmol/L CBC Result Value Ref Range WBC 6.57 4.00 - 10.80 K/uL RBC 4.95 4.50 - 5.25 M/uL HGB 15.1 14.0 - 16.8 g/dL HCT 44.5 40.0 - 48.4 % MCV 89.9 82.0 - 99.5 fL MCH 30.5 27.0 - 34.0 pg MCHC 33.9 32.0 - 36.0 g/dL RDW 13.4 11.5 - 15.5 % PLT 151 140 - 400 K/uL MPV 11.3 6.6 - 11.1 fL nRBCs 0 <=0 /100 WBCs DIFFERENTIAL, AUTOMATED Result Value Ref Range WBC 6.57 4.00 - 10.80 K/uL Neutrophils % 80.6 (H) 40.0 - 75.0 % Lymphocytes % 7.6 (L) 18.0 - 42.0 % Monocytes % 10.7 1.0 - 11.0 % Eosinophils % 0.6 0.0 - 6.0 % Basophils % 0.2 0.0 - 2.0 % Immature Granulocytes % 0.3 0.0 - 2.0 % Absolute Neutrophils 5.30 1.80 - 7.70 K/uL Absolute Lymphocytes 0.50 (L) 1.00 - 4.80 K/ul Absolute Monocytes 0.70 0.00 - 1.10 K/uL Absolute Eosinophils 0.04 0.00 - 0.70 K/uL Absolute Basophils 0.01 0.00 - 0.20 K/uL Absolute Immature Granulocytes 0.02 0.00 - 0.20 K/uL COMPREHENSIVE METABOLIC PANEL Result Value Ref Range BUN 12 6 - 20 mg/dL Creatinine 0.8 0.6 - 1.2 mg/dL Estimated Glomerular Filtration Rate 86 >=60 mL/min Sodium 135 135 - 146 mmol/L Potassium Chloride 100 98 - 107 mmol/L CO2 22 22 - 32 mmol/L Anion Gap 13 7 - 15 mmol/L Glucose 117 70 - 120 mg/dL Albumin 3.6 (L) 3.8 - 5.0 g/dL AST Alkaline Phosphatase 107 35 - 130 U/L Bilirubin, Total 0.9 <=1.2 mg/dL Calcium 8.1 (L) 8.4 - 10.2 mg/dL Protein 6.9 6.0 - 8.3 g/dL ALT 23 10 - 50 U/L CBC Result Value Ref Range WBC 6.30 4.00 - 10.80 K/uL RBC 4.68 4.50 - 5.25 M/uL HGB 14.5 14.0 - 16.8 g/dL HCT 42.6 40.0 - 48.4 % MCV 91.0 82.0 - 99.5 fL MCH 31.0 27.0 - 34.0 pg MCHC 34.0 32.0 - 36.0 g/dL RDW 13.5 11.5 - 15.5 % PLT 195 140 - 400 K/uL MPV 11.5 6.6 - 11.1 fL nRBCs 0 <=0 /100 WBCs MAGNESIUM Result Value Ref Range Magnesium 2.4 1.5 - 2.6 mg/dL PHOSPHORUS Result Value Ref Range Phosphorus 2.9 2.5 - 4.8 mg/dL CBC Result Value Ref Range WBC 5.55 4.00 - 10.80 K/uL RBC 4.53 4.50 - 5.25 M/uL HGB 13.3 (L) 14.0 - 16.8 g/dL HCT 40.7 40.0 - 48.4 % MCV 89.8 82.0 - 99.5 fL MCH 29.4 27.0 - 34.0 pg MCHC 32.7 32.0 - 36.0 g/dL RDW 13.2 11.5 - 15.5 % PLT 148 140 - 400 K/uL MPV 11.0 6.6 - 11.1 fL nRBCs 0 <=0 /100 WBCs BASIC METABOLIC PANEL Result Value Ref Range BUN 15 6 - 20 mg/dL Creatinine 0.9 0.6 - 1.2 mg/dL Estimated Glomerular Filtration Rate 83 >=60 mL/min Sodium 138 135 - 146 mmol/L Potassium 3.2 (L) 3.5 - 5.1 mmol/L Chloride 100 98 - 107 mmol/L CO2 25 22 - 32 mmol/L Anion Gap 13 7 - 15 mmol/L Glucose 98 70 - 120 mg/dL Calcium 7.7 (L) 8.4 - 10.2 mg/dL CBC Result Value Ref Range WBC 5.93 4.00 - 10.80 K/uL RBC 4.60 4.50 - 5.25 M/uL HGB 13.9 (L) 14.0 - 16.8 g/dL HCT 41.5 40.0 - 48.4 % MCV 90.2 82.0 - 99.5 fL MCH 30.2 27.0 - 34.0 pg MCHC 33.5 32.0 - 36.0 g/dL RDW 13.4 11.5 - 15.5 % PLT 166 140 - 400 K/uL MPV 11.2 6.6 - 11.1 fL nRBCs 0 <=0 /100 WBCs BASIC METABOLIC PANEL Result Value Ref Range BUN 19 6 - 20 mg/dL Creatinine 1.0 0.6 - 1.2 mg/dL Estimated Glomerular Filtration Rate 72 >=60 mL/min Sodium 139 135 - 146 mmol/L Potassium 3.2 (L) 3.5 - 5.1 mmol/L Chloride 100 98 - 107 mmol/L CO2 27 22 - 32 mmol/L Anion Gap 12 7 - 15 mmol/L Glucose 107 70 - 120 mg/dL Calcium 7.9 (L) 8.4 - 10.2 mg/dL CBC Result Value Ref Range WBC 5.85 4.00 - 10.80 K/uL RBC 4.63 4.50 - 5.25 M/uL HGB 14.1 14.0 - 16.8 g/dL HCT 42.2 40.0 - 48.4 % MCV 91.1 82.0 - 99.5 fL MCH 30.5 27.0 - 34.0 pg MCHC 33.4 32.0 - 36.0 g/dL RDW 13.3 11.5 - 15.5 % PLT 175 140 - 400 K/uL MPV 11.3 6.6 - 11.1 fL nRBCs 0 <=0 /100 WBCs BASIC METABOLIC PANEL Result Value Ref Range BUN 17 6 - 20 mg/dL Creatinine 0.9 0.6 - 1.2 mg/dL Estimated Glomerular Filtration Rate 79 >=60 mL/min Sodium 141 135 - 146 mmol/L Potassium 3.4 (L) 3.5 - 5.1 mmol/L Chloride 103 98 - 107 mmol/L CO2 28 22 - 32 mmol/L Anion Gap 10 7 - 15 mmol/L Glucose 100 70 - 120 mg/dL Calcium 8.0 (L) 8.4 - 10.2 mg/dL CBC Result Value Ref Range WBC 5.95 4.00 - 10.80 K/uL RBC 4.63 4.50 - 5.25 M/uL HGB 13.9 (L) 14.0 - 16.8 g/dL HCT 42.7 40.0 - 48.4 % MCV 92.2 82.0 - 99.5 fL MCH 30.0 27.0 - 34.0 pg MCHC 32.6 32.0 - 36.0 g/dL RDW 13.5 11.5 - 15.5 % PLT 184 140 - 400 K/uL MPV 10.8 6.6 - 11.1 fL nRBCs 0 <=0 /100 WBCs BASIC METABOLIC PANEL Result Value Ref Range BUN 18 6 - 20 mg/dL Creatinine 1.1 0.6 - 1.2 mg/dL Estimated Glomerular Filtration Rate 66 >=60 mL/min Sodium 142 135 - 146 mmol/L Potassium 3.8 3.5 - 5.1 mmol/L Chloride 105 98 - 107 mmol/L CO2 27 22 - 32 mmol/L Anion Gap 10 7 - 15 mmol/L Glucose 93 70 - 120 mg/dL Calcium 8.4 8.4 - 10.2 mg/dL CBC Result Value Ref Range WBC 6.13 4.00 - 10.80 K/uL RBC 4.71 4.50 - 5.25 M/uL HGB 14.0 14.0 - 16.8 g/dL HCT 43.6 40.0 - 48.4 % MCV 92.6 82.0 - 99.5 fL MCH 29.7 27.0 - 34.0 pg MCHC 32.1 32.0 - 36.0 g/dL RDW 13.2 11.5 - 15.5 % PLT 183 140 - 400 K/uL MPV 11.2 6.6 - 11.1 fL nRBCs 0 <=0 /100 WBCs BASIC METABOLIC PANEL Result Value Ref Range BUN 12 6 - 20 mg/dL Creatinine 0.8 0.6 - 1.2 mg/dL Estimated Glomerular Filtration Rate 86 >=60 mL/min Sodium 139 135 - 146 mmol/L Potassium 3.6 3.5 - 5.1 mmol/L Chloride 104 98 - 107 mmol/L CO2 23 22 - 32 mmol/L Anion Gap 12 7 - 15 mmol/L Glucose 112 70 - 120 mg/dL Calcium 8.1 (L) 8.4 - 10.2 mg/dL GLUCOSE METER, POINT OF CARE Result Value Ref Range Glucose Meter 126 (H) 70 - 120 mg/dL GLUCOSE METER, POINT OF CARE Result Value Ref Range Glucose Meter 122 (H) 70 - 120 mg/dL GLUCOSE METER, POINT OF CARE Result Value Ref Range Glucose Meter 121 (H) 70 - 120 mg/dL GLUCOSE METER, POINT OF CARE Result Value Ref Range Glucose Meter 120 70 - 120 mg/dL GLUCOSE METER, POINT OF CARE Result Value Ref Range Glucose Meter 124 (H) 70 - 120 mg/dL GLUCOSE METER, POINT OF CARE Result Value Ref Range Glucose Meter 134 (H) 70 - 120 mg/dL GLUCOSE METER, POINT OF CARE Result Value Ref Range Glucose Meter 124 (H) 70 - 120 mg/dL GLUCOSE METER, POINT OF CARE Result Value Ref Range Glucose Meter 105 70 - 120 mg/dL GLUCOSE METER, POINT OF CARE Result Value Ref Range Glucose Meter 101 70 - 120 mg/dL GLUCOSE METER, POINT OF CARE Result Value Ref Range Glucose Meter 126 (H) 70 - 120 mg/dL GLUCOSE METER, POINT OF CARE Result Value Ref Range Glucose Meter 129 (H) 70 - 120 mg/dL GLUCOSE METER, POINT OF CARE Result Value Ref Range Glucose Meter 98 70 - 120 mg/dL GLUCOSE METER, POINT OF CARE Result Value Ref Range Glucose Meter 119 70 - 120 mg/dL GLUCOSE METER, POINT OF CARE Result Value Ref Range Glucose Meter 88 70 - 120 mg/dL GLUCOSE METER, POINT OF CARE Result Value Ref Range Glucose Meter 98 70 - 120 mg/dL GLUCOSE METER, POINT OF CARE Result Value Ref Range Glucose Meter 143 (H) 70 - 120 mg/dL GLUCOSE METER, POINT OF CARE Result Value Ref Range Glucose Meter 107 70 - 120 mg/dL GLUCOSE METER, POINT OF CARE Result Value Ref Range Glucose Meter 111 70 - 120 mg/dL *Note: Due to a large number of results and/or encounters for the requested time period, some results have not been displayed. A complete set of results can be found in Results Review. XR ABDOMEN OBSTRUCT SERIES W CHEST 1 VIEW Final Result PROCEDURE INFORMATION: Exam: XR Complete Acute Abdomen Series Including Chest Exam date and time: 05/26/2023 1:07 PM Age: 88 years old Clinical indication: Other: Vomiting, last bm was 1 week ago; Additional info: Worsening abd distention and nausea and vomiting again today. TECHNIQUE: Imaging protocol: Radiologic exam. Complete acute abdomen series, including 2 or more views of the abdomen and a single view chest. COMPARISON: CT ABD/PELVIS WO IV/ORAL CONTRAST 05/21/2023 5:18 AM FINDINGS: Lungs: No air bronchograms or focal consolidation identified. Pleural spaces: Normal. No pleural effusions. No pneumothorax. Heart/Mediastinum: The heart is enlarged. Gastrointestinal tract: Scattered gas-filled loops of bowel. Moderate constipation. There is gas present distally in the colon. Intraperitoneal space: Normal. No free air. Vasculature: The vasculature demonstrates diffuse moderate atherosclerotic calcification. Bones/joints: There are sternal wires consistent with previous sternotomy incision. Soft tissues: Normal. IMPRESSION IMPRESSION: Nonspecific bowel gas pattern. Large amount of stool in the colon. THIS DOCUMENT HAS BEEN ELECTRONICALLY SIGNED BY RAINE PITT MD CT ABD/PELVIS WO IV/ORAL CONTRAST Final Result PROCEDURE INFORMATION: Exam: CT Abdomen And Pelvis Without Contrast Exam date and time: 05/21/2023 5:18 AM Age: 88 years old Clinical indication: Abdominal pain; Generalized; Additional info: Severe abdominal pain, distention, vomiting, no bowel movement for a week. Recent diagnosis of liver lesions, history of prostate cancer TECHNIQUE: Imaging protocol: Computed tomography of the abdomen and pelvis without contrast. Total images: 2 Radiation optimization: All CT scans at this facility use at least one of these dose optimization techniques: automated exposure control; mA and/or kV adjustment per patient size (includes targeted exams where dose is matched to clinical indication); or iterative reconstruction. REPORTING DATA: Count of CT and Cardiac NM exams in prior 12 months: This patient has received [address] and 0 known cardiac nuclear medicine studies in the 12 months prior to the current study. COMPARISON: CT CHEST W CONTRAST 05/09/2023 1:05 PM FINDINGS: Lungs: Calcific pleural plaque in the right lung base unchanged. Emphysematous and fibrotic changes in the lung bases appear similar to 05/09/2023. Diaphragm: Small volume hiatal hernia. Unchanged. Liver: Hypodense nodules scattered throughout the liver are better seen on enhance study 05/09/2023. Splenic capsular calcification again noted along the anterolateral margin unchanged. Gallbladder and bile ducts: Normal. No calcified stones. No ductal dilation. Pancreas: Normal. No ductal dilation. Spleen: See "Liver" finding. Adrenal glands: Normal. No mass. Kidneys and ureters: Normal. No hydronephrosis. Stomach and bowel: Prominent fecal pattern and BS in the colon. No mechanical obstruction. Sigmoid diverticulosis with no acute diverticular inflammation. Appendix: No evidence of appendicitis. Intraperitoneal space: 3.3 cm soft tissue mass in the epigastric region not significantly changed from 05/09/2023 concerning for metastatic focus. Vasculature: Atherosclerotic tortuous thoracic aorta. No aneurysm. Lymph nodes: Linear density adjacent to the origin of the celiac trunk to the left of midline is noted with adjacent infiltration of retroperitoneal adipose tissue, unchanged most likely retracted lymph node. Urinary bladder: Unremarkable as visualized. Reproductive: Stable appearance of the prostate gland. Bones/joints: Small sclerotic lesion in the right femoral head, unchanged. Osseous demineralization and degenerative changes. Soft tissues: Unremarkable. IMPRESSION IMPRESSION: 1. Prominent fecal debris throughout the proximal and mid colon. 2. No mechanical obstruction. 3. Epigastric peritoneal soft tissue mass most likely metastatic lesion, unchanged from most recent study and 02/03/2022. 4. Hepatic hypodensities concerning for metastatic disease. 5. Stable osseous structures. 6. Enlarged prostate gland. THIS DOCUMENT HAS BEEN ELECTRONICALLY SIGNED BY ANNETTE MELISSA DO XR CHEST 1 VIEW Final Result PROCEDURE INFORMATION: Exam: XR Chest Exam date and time: 05/21/2023 4:17 AM Age: 88 years old Clinical indication: Other: SOB and abdominal pain; Additional info: Severe abdominal pain TECHNIQUE: Imaging protocol: Radiologic exam of the chest. Views: 1 view. COMPARISON: CT CHEST W CONTRAST 05/09/2023 1:05 PM CXR 10/09/2022 FINDINGS: Lungs: Stable peribronchial opacity in the right hilar region, unchanged since 10/09/2022. No consolidation. Pleural spaces: Unremarkable. No pleural effusion. No pneumothorax. Heart/Mediastinum: Stable mild cardiomegaly. Bones/joints: Unremarkable. IMPRESSION IMPRESSION: Stable peribronchial opacity in the right hilar region. THIS DOCUMENT HAS BEEN ELECTRONICALLY SIGNED BY GRISELDA KANG MD Results Pending at Discharge: Lab Results Pending at Discharge: None MEDICATION UPDATES AT DISCHARGE START taking these medications INSTRUCTIONS Acetaminophen 325 MG Tablet Commonly known as: Tylenol Notes to patient: Used to ease pain and fever Take 3 Tablets by mouth in the morning and 3 Tablets at noon and 3 Tablets before bedtime. Do all this for 10 days. Baclofen 5 MG Tabs Commonly known as: Lioresal Notes to patient: Used to treat spasms in patients with MS (multiple sclerosis) or spinal cord problems Take 1 Tablet by mouth in the morning and 1 Tablet in the evening. Docusate Sodium 100 MG Capsule Commonly known as: Colace Notes to patient: Used to treat constipation Take 1 Capsule by mouth in the morning and 1 Capsule before bedtime. Polyethylene Glycol 3350 packet Commonly known as: Miralax Notes to patient: Used to treat constipation Take 1 Packet by mouth in the morning. CHANGE how you take these medications INSTRUCTIONS predniSONE 5 MG Tabs Commonly known as: Deltasone What changed: Another medication with the same name was removed. Continue taking this medication, and follow the directions you see here. Notes to patient: Used for many health problems like allergy signs, asthma, adrenal gland problems,blood problems, skin rashes, or swelling problems TAKE ONE TABLET BY MOUTH DAILY * traMADol 50 MG Tablet Commonly known as: Ultram What changed: Another medication with the same name was added. Make sure you understand how and when to take each. Take 1 Tablet by mouth every 6 hours as needed for Pain, Moderate or Pain, Severe. * traMADol 50 MG Tablet Commonly known as: Ultram What changed: You were already taking a medication with the same name, and this prescription was added. Make sure you understand how and when to take each. Take 1 Tablet by mouth every 8 hours as needed for Pain, Severe. * This list has 2 medication(s) that are the same as other medications prescribed for you. Read thedirections carefully, and ask your doctor or other care provider to review them with you. CONTINUE taking these medications INSTRUCTIONS albuterol HFA [...] pressure TAKE ONE TABLET BY MOUTH EVERY MORNING [...] failure managing provider or [facility] at home mattress spring encaser Doxazosin Mesylate 8 MG Tablet Notes to [...] Commonly known as: Flonase Notes to patient: Used to ease allergy signs and treat certain nose and sinus problems with nasal polyps ADMINISTER TWO SPRAYS IN EACH NOSTRIL EVERY [...] Magnesium 250 MG Tablet Notes to patient: Used to treat or prevent low magnesium levels Take 1 Tablet by mouth in the morning. omeprazole 20 MG Cpdr Commonly known as: PriLOSEC Notes to patient: Used to treat or prevent GI (gastrointestinal) ulcers, gastroesophageal reflux (GERD, acid reflux), and heartburn TAKE ONE CAPSULE BY MOUTH TWICE A DAY oxygen Gas 1.5 lpm bled into CPAP and with activity/exertion potassium chloride ER 10 MEQ Tbcr Notes to patient: Used to treat or prevent low potassium levels Take 3 Tablets by mouth in the morning. PreserVision AREDS 2 Capsule Notes to patient: Supplement one by mouth twice a day Prolia 60 MG/ML injection Generic drug: Denosumab Notes to patient: Used to treat soft, brittle bones (osteoporosis), high calcium levels in patientswith cancer, and for bone growth INJECT 60 MG (1 SYRINGE) UNDER THE SKIN EVERY 6 MONTHS Robitussin Cough+Chest Fidel DM 20-200 MG/20ML Liqd Generic drug: Dextromethorphan-guaiFENesin Notes to patient: Used to ease cough Take by mouth . Spironolactone 25 MG Tablet Commonly known as: Aldactone Notes to patient: Used to get rid of extra fluid and treat heart failure (weak heart), high blood pressure, high aldosterone levels, and kidney problems Take 1/2 tablet daily zinc 50 MG Tablet Notes to patient: Used to help growth and good health Take 1 Tablet by mouth in the morning. STOP taking these medications Cefdinir 300 MG Capsule Commonly known as: Omnicef doxycycline hyclate 100 MG Capsule Fluconazole 100 MG Tablet Commonly known as: Diflucan SCHEDULED FOLLOW-UP: Future Appointments Appt Date/Time Provider Department 06/02/2023 10:45 AM PET1 [facility] [place] Radiology, [facility] 06/07/2023 8:00 AM Toney Shafer DO Ophthalmology, [facility] 06/08/2023 1:30 PM Cayden Sandoval MD Hematology/Oncology, [facility] 07/06/2023 12:40 PM Felicita Copeland DPM Podiatry [facility] 07/27/2023 12:40 PM Trina Plaza [facility] 08/03/2023 1:30 PM Ryan Cunningham MD Urology [facility] 09/11/2023 2:00 PM XR1 [facility] Radiology, [facility] 09/11/2023 2:30 PM Trey Pft Pulmonary Function Lab [facility] 09/11/2023 3:00 PM Saul Moscoso MD Pulmonary Medicine [facility] 10/25/2023 2:40 PM Mirza Mcgee III, MD [facility] 05/02/2024 1:00 PM Alesha John MD Sleep Disorders, [facility] Other Information Indwelling Devices: LINES ALL Duration Peripheral Line Right Hand 20 Gauge -- days Vital Signs (last recorded): Most Recent Systolic BP: 143 mmHg (05/27/23 0732) Most Recent Diastolic BP: 65 mmHg (05/27/23 0732) Pulse: 65 (05/27/23 0912) Resp: 18 (05/27/23 0807) Most Recent Temperature: 36.72 C (05/27/23 07) Weight: 103.7 kg (228 lb 9.6 oz) (05/26/23 0548) SpO2: 91 % (05/27/23 0807) O2 flow rate: 1 L/MIN (05/26/23 1502) Allergies: Amoxicillin, Oxycodone, and Percocet [oxycodone-acetaminophen] Activity: as tolerated Diet: cardiac diet Code status (this admission): No Code Discussion of adv directives occurred with - adult: Patient Condition on Discharge: stable Isolation status: None Cognition: normal HOSPITAL CONSULTS ORDERED: ADULT PHYSICAL THERAPY CONSULT IP ADULT OCCUPATIONAL THERAPY CONSULT IP REFERRING PHYSICIAN: Ref: [id number]] NO STREET ADDRESS AVAILABLE None (office) None (fax) PRIMARY CARE PROVIDER: PCP: Mirza Mcgee III, MD [address] [facility] / [facility] [id number] (office) [phone] (fax) Note: To contact a physician responsible for this patients hospital care, please call [employer] [phone]. I certify this patient is confined to the home and needs intermittent senior living care, physical therapy and/or speech therapy, or [...] leave the home. The patient had a exlu-re-grvy encounter with an allowed provider type on 05/27/2023 and the encounter was related to the primary reason for home health care. Under situations in which I am an acute/post acute facility physician who will not be following the patient's plan of care, I authorized services on this plan of care and I transfer the patient for plan of care certification to the primary care physician margie who will follow the patient and update the plan of care. Primary care physician Mirza Mcgee III, MD I spent a total of 45 minutes coordinating, documenting, and providing care for this patient excluding time spent in the performance of separately billed services. documented in this encounter Discharge Instructions * Discharge Instr - AVS* Kaden Baumann MD - 05/27/2023 12:22 PM EST Discharge Date: 05/27/2023 The information below provides you with the instructions and the list of medications you need to betaking following discharge from the hospital. If you have any questions, please ask before leaving. If you have questions after leaving, you can reach us at the numbers below. YOUR HOSPITAL PROVIDERS: Discharging Provider: Kaden Baumann MD Provider Department: Hospital Medicine To reach this Provider Monday through Monday (8:00 AM to 4:30 PM) for any questions or test results: Call [phone] For after-hours concerns: Call [phone] and have your provider paged, or the provider push button switch assembler for the Department of Hospital Medicine paged. [...] available, you can go to your local [facility] or [facility] during their business hours. In an EMERGENCY situation: Call [phone] or go to the nearest emergency room. A BRIEF SUMMARY OF YOUR HOSPITAL STAY: You came to the hospital with: complaint of abd pain, nausea, vomiting, poor po intake. Your main diagnosis at discharge was: Severe Constipation. Intractable back pain. Operations & Procedures performed: none Complications: none significant Inpatient test results that are pending at discharge: none Advance Directive Documented: Advance Directive Does the Patient have an Advance Directive? Yes YOUR FOLLOW UP APPOINTMENTS: Primary Care Provider Information: PCP: Mirza Mcgee III, MD [address] [place] [address] / [facility] [phone] (office) [phone] (fax) An appointment was requested with your PCP (Mirza Mcgee III, MD) within 3 days. (Please take this form to this visit with your primary care physician.) You need the following studies in the future: BMP: date - in 3-5 days and CBC: date - in 3-5 days. To be ordered and followed up by PCP. INSTRUCTIONS: Diet: Heart healthy diet Activity: As tolerated, No strenuous activity for 2 weeks, and No lifting or pushing or pulling more than 10 lbs for 2 weeks. For Constipation: - Please take miralax and colace as ordered daily for now. If you start having more than 2 BMs (Bowel Movements) a day regularly, please cut back to as needed or PRN. - If you are having no bowel movements for atleast 2 days, Please increase miralax to 2 times a dayand colace to 200mg two times a day for atleast 1-2 days. - In-spite of increasing the regimen to above for atleast 2 days/48 hours, if you do not have any more bowel movements, please call your Primary Care Physician's office for additional recommendations. - At any time, if you start having worsening abdominal distention, pain, nausea, vomiting or poor oral intake, please report to the Emergency Room for evaluation. For Fluid intake: - Please consider drinking around 64 ounces of fluids/water a day. No more than 72 ounces. As you do have risk for volume overload/heart failure. - Please consider eating home cooked meals and meals high in fiber. Please avoid ultra-processed foods. For Pain control: - continue pain regimen as ordered. (Gabapentin, tylenol, tramadol and baclofen) - ok to take baclofen 5mg twice a day as ordered for now. You have room to increase the dose, however, please speak to your primary care doctor about it and DO NOT increase it by yourself without discussing it with your doctor first. Additional Instructions: - Call your primary care physician or seek medical attention if you have worsening fevers, chills, nausea, vomiting, shortness of breath, chest pain, abd pain, back pain, lightheadedness or dizziness. - Do not use alcohol products in anyway! - Use caution when standing or walking since you are at an increased risk for falls - Do not take ihrk-ufr-pfgavty NSAIDs (nonsteroid anti-inflammatory medications); ie. Advil, Motrin, Ibuprofen, etc. documented in this encounter Progress Notes * Kaden Baumann MD - 05/26/2023 7:33 PM EST Images from the original note were not included. 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 Seen and evaluated earlier this morning. Notes feeling ok, but abd remains distended and he continues to have issues with lower back pain. He is appearing frustrated that he has not been able to havea BM yet. Objective Physical Exam Most Recent Vital Signs: BP: 150 mmHg/84 mmHg (05/26/231924) Pulse: 72 (05/26/231924) Temp: 36.78 C (05/26/231924) Resp: 16 (05/26/231924) SpO2: 93 % (05/26/231924) Constitutional: mild distress HEENT: normocephalic, atraumatic; no masses, tenderness, or adenopathy, has b/l hearing aids. CV: normal rate and rhythm, no murmur, gallops or rub Chest: normal respiratory effort, breath sounds normal, chest wall normal Abdomen: soft, normal bowel sounds, no mass, no tenderness Musculoskeletal: lower back tenderness yessica paraspinal. Extremities: no clubbing, no cyanosis, some edema noted in both lower extremities. Around one plus.[place]ton wraps in place. Peripheral Line Right Hand 20 Gauge (Active) Number of days: STUDIES: Encounter Orders Labs and other studies reviewed with pertinent findings noted below: Recent Results (from the past 24 hour(s)) CBC Collection Time: 05/26/23 5:05 AM Result Value Ref Range WBC 5.95 4.00 - 10.80 K/uL RBC 4.63 4.50 - 5.25 M/uL HGB 13.9 (L) 14.0 - 16.8 g/dL HCT 42.7 40.0 - 48.4 % MCV 92.2 82.0 - 99.5 fL MCH 30.0 27.0 - 34.0 pg MCHC 32.6 32.0 - 36.0 g/dL RDW 13.5 11.5 - 15.5 % PLT 184 140 - 400 K/uL MPV 10.8 6.6 - 11.1 fL nRBCs 0 <=0 /100 WBCs BASIC METABOLIC PANEL Collection Time: 05/26/23 5:05 AM Result Value Ref Range BUN 18 6 - 20 mg/dL Creatinine 1.1 0.6 - 1.2 mg/dL Estimated Glomerular Filtration Rate 66 >=60 mL/min Sodium 142 135 - 146 mmol/L Potassium 3.8 3.5 - 5.1 mmol/L Chloride 105 98 - 107 mmol/L CO2 27 22 - 32 mmol/L Anion Gap 10 7 - 15 mmol/L Glucose 93 70 - 120 mg/dL Calcium 8.4 8.4 - 10.2 mg/dL Assessment and Plan IMPRESSION : Principal Problem: Uncontrolled pain Active Problems: History of Hodgkin's disease PMR (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) (HCC) 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 * DIFFERENTIAL AND PLAN: - pain control somewhat ok. I added tramadol today. Continue baclofen and gabapentin as well. - severe constipation. Multiple agents given. Was planning to start lactulose today. One dose giventhis aftn, which he threw up. Xray for obstruction done of abd. Reviewed by me, only shows significant stool burden with normal bowel gas pattern. Of note, later this aftn, he started to have multiple large BMs, 3 large and 2 small. - lactulose discontinued. - monitor potassium levels on po supplementation. - encourage ambulation as tolerated with PT and OT. Appreciate their inputs. [facility] is 18. - care mx on board as well. Plan for home with home health services when ready. - updated and grand daughter at bedside as well. PHARMACOLOGIC VTE PROPHYLAXIS: Enoxaparin CODE STATUS: No Code EXPECTED DISCHARGE DATE: 05/28/2023 I spent a total of 45 minutes coordinating, documenting, and providing care for this patient excluding time spent in the performance of separately billed services. * Kaden Baumann MD - 05/25/2023 6:21 PM EST Images from the original note were not included. 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 Seen and evaluated earlier this aftn. Having lunch. at bedside. BM yesterday was small. So today, still feeling quite bloated and constipated. Continues to have lower back pain. Baclofen seems to have helped. Objective Physical Exam Most Recent Vital Signs: BP: 139 mmHg/67 mmHg (05/25/23 1545) Pulse: 64 (05/25/23 1545) Temp: 36.72 C (05/25/23 1545) Resp: 17 (05/25/23 1545) SpO2: 95 % (05/25/23 1545) Constitutional: mild distress HEENT: normocephalic, atraumatic; no masses, tenderness, or adenopathy, has b/l hearing aids. CV: normal rate and rhythm, no murmur, gallops or rub Chest: normal respiratory effort, breath sounds normal, chest wall normal Abdomen: soft, normal bowel sounds, no mass, no tenderness Musculoskeletal: lower back tenderness yessica paraspinal. Extremities: no clubbing, no cyanosis, some edema noted in both lower extremities. Around one plus. Peripheral Line Right Hand 20 Gauge (Active) Number of days: STUDIES: Encounter Orders Labs and other studies reviewed with pertinent findings noted below: Recent Results (from the past 24 hour(s)) GLUCOSE METER, POINT OF CARE Collection Time: 05/24/23 9:19 PM Result Value Ref Range Glucose Meter 88 70 - 120 mg/dL CBC Collection Time: 05/25/23 7:04 AM Result Value Ref Range WBC 5.85 4.00 - 10.80 K/uL RBC 4.63 4.50 - 5.25 M/uL HGB 14.1 14.0 - 16.8 g/dL HCT 42.2 40.0 - 48.4 % MCV 91.1 82.0 - 99.5 fL MCH 30.5 27.0 - 34.0 pg MCHC 33.4 32.0 - 36.0 g/dL RDW 13.3 11.5 - 15.5 % PLT 175 140 - 400 K/uL MPV 11.3 6.6 - 11.1 fL nRBCs 0 <=0 /100 WBCs BASIC METABOLIC PANEL Collection Time: 05/25/23 7:04 AM Result Value Ref Range BUN 17 6 - 20 mg/dL Creatinine 0.9 0.6 - 1.2 mg/dL Estimated Glomerular Filtration Rate 79 >=60 mL/min Sodium 141 135 - 146 mmol/L Potassium 3.4 (L) 3.5 - 5.1 mmol/L Chloride 103 98 - 107 mmol/L CO2 28 22 - 32 mmol/L Anion Gap 10 7 - 15 mmol/L Glucose 100 70 - 120 mg/dL Calcium 8.0 (L) 8.4 - 10.2 mg/dL GLUCOSE METER, POINT OF CARE Collection Time: 05/25/23 7:53 AM Result Value Ref Range Glucose Meter 98 70 - 120 mg/dL GLUCOSE METER, POINT OF CARE Collection Time: 05/25/23 11:42 AM Result Value Ref Range Glucose Meter 107 70 - 120 mg/dL GLUCOSE METER, POINT OF CARE Collection Time: 05/25/23 4:50 PM Result Value Ref Range Glucose Meter 111 70 - 120 mg/dL Assessment and Plan IMPRESSION : Principal Problem: Uncontrolled pain Active Problems: History of Hodgkin's disease PMR (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) ([facility]) Prostate cancer metastatic to bone ([facility]) Type 2 diabetes mellitus with diabetic polyneuropathy ([facility]) Chronic diastolic heart failure ([facility]) Barretts esophagus SANJEEV (obstructive sleep apnea) Chronic respiratory failure with hypoxia ([facility]) 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) COPD, group C, by GOLD 2017 classification ([facility]) Intractable nausea and vomiting Degenerative lumbar spinal stenosis DNR (do not resuscitate) Constipation TUNUNAK (hard of hearing) Poor vision Resolved Problems: * No resolved hospital problems. * DIFFERENTIAL AND PLAN: - continues to have issues with pain. But making steady improvement. Continue baclofen. Same dose for now. Continue other medications for pain control as well. - gave him SMOG enema today. Not much benefit. Increased miralax dose as well as started on high dose colace. - he does have some LE edema. Will monitor for now. Continue po lasix as current. If needed will give higher dose or iv dose in next 1-2 days. - low potassium levels. Continue po potassium supplementation daily. - encourage ambulation as tolerated with PT and OT. Appreciate their inputs. [facility] is 18. - care mx on board as well. Plan for home with home health services when ready. - updated at bedside as well. PHARMACOLOGIC VTE PROPHYLAXIS: Enoxaparin CODE STATUS: No Code EXPECTED DISCHARGE DATE: 05/27/2023 I spent a total of 45 minutes coordinating, documenting, and providing care for this patient excluding time spent in the performance of separately billed services. * Kaden Baumann MD - 05/24/2023 6:21 PM EST Images from the original note were not included. 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 Patient was seen and evaluated earlier this morning. Sitting on chair at bedside. Notes he had a BMtoday, feels well form that stand point. He however continues to have worsening lower back pain andhas not had good control of the same. Objective Physical Exam Most Recent Vital Signs: BP: 159 mmHg/69 mmHg (05/24/23 1530) Pulse: 61 (05/24/23 1530) Temp: 36.78 C (05/24/23 1530) Resp: 20 (05/24/23 1530) SpO2: 98 % (05/24/23 153) Constitutional: mild to moderate distress HEENT: normal: normocephalic, atraumatic; no masses, tenderness, or adenopathy, has b/l hearing aids. CV: normal rate and rhythm, no murmur, gallops or rub Chest: normal respiratory effort, breath sounds normal, chest wall normal Abdomen: soft, normal bowel sounds, no mass, no tenderness Musculoskeletal: lower back tenderness yessica paraspinal. Extremities: no clubbing, no cyanosis, . Peripheral Line Right Hand 20 Gauge (Active) Number of days: STUDIES: Encounter Orders Labs and other studies reviewed by me personally with pertinent findings noted below: Recent Results (from the past 24 hour(s)) GLUCOSE METER, POINT OF CARE Collection Time: 05/23/23 9:26 PM Result Value Ref Range Glucose Meter 129 (H) 70 - 120 mg/dL CBC Collection Time: 05/24/23 6:24 AM Result Value Ref Range WBC 5.93 4.00 - 10.80 K/uL RBC 4.60 4.50 - 5.25 M/uL HGB 13.9 (L) 14.0 - 16.8 g/dL HCT 41.5 40.0 - 48.4 % MCV 90.2 82.0 - 99.5 fL MCH 30.2 27.0 - 34.0 pg MCHC 33.5 32.0 - 36.0 g/dL RDW 13.4 11.5 - 15.5 % PLT 166 140 - 400 K/uL MPV 11.2 6.6 - 11.1 fL nRBCs 0 <=0 /100 WBCs BASIC METABOLIC PANEL Collection Time: 05/24/23 6:24 AM Result Value Ref Range BUN 19 6 - 20 mg/dL Creatinine 1.0 0.6 - 1.2 mg/dL Estimated Glomerular Filtration Rate 72 >=60 mL/min Sodium 139 135 - 146 mmol/L Potassium 3.2 (L) 3.5 - 5.1 mmol/L Chloride 100 98 - 107 mmol/L CO2 27 22 - 32 mmol/L Anion Gap 12 7 - 15 mmol/L Glucose 107 70 - 120 mg/dL Calcium 7.9 (L) 8.4 - 10.2 mg/dL GLUCOSE METER, POINT OF CARE Collection Time: 05/24/23 7:21 AM Result Value Ref Range Glucose Meter 98 70 - 120 mg/dL GLUCOSE METER, POINT OF CARE Collection Time: 05/24/23 4:23 PM Result Value Ref Range Glucose Meter 119 70 - 120 mg/dL Assessment and Plan IMPRESSION : Principal Problem: Uncontrolled pain Active Problems: History of Hodgkin's disease PMR (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) (HCC) 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 * DIFFERENTIAL AND PLAN: - overall patient continues to have significant pain issues. - start on po baclofen low dose. 5mg BID. - continue pain control regimen as ordered before - PT consulted. Appreciate input. Care mx working on home health services. - continue laxative regimen. He has started to move his bowels. - DC in 1-2 days based on clinical stability. - continue other home meds as ordered - po potassium one time dose ordered today for hypokalemia. - updated also at bedside. PHARMACOLOGIC VTE PROPHYLAXIS: Enoxaparin CODE STATUS: No Code EXPECTED DISCHARGE DATE: 05/26/2023 I spent a total of 45 minutes coordinating, documenting, and providing care for this patient excluding time spent in the performance of separately billed services. * Bismark Stewart MD - 05/23/2023 4:22 PM EST Images from the original note were not included. 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 INTERVAL HISTORY: Still not BM. Planned for enema today. Once BM complete we can monitor on [employer]. Objective Physical Exam Most Recent Vital Signs: BP: 143 mmHg/73 mmHg (05/23/23 1422) Pulse: 70 (05/23/23 1422) Temp: 37.06 C (05/23/23 1422) Resp: 20 (05/23/23 1422) SpO2: 95 % (05/23/23 142) Physical Exam Vitals reviewed. Constitutional: Appearance: He is not ill-appearing or toxic-appearing. Cardiovascular: Rate and Rhythm: Normal rate. Heart sounds: No friction rub. No gallop. Pulmonary: Effort: Pulmonary effort is normal. Breath sounds: No wheezing, rhonchi or rales. Abdominal: General: Bowel sounds are normal. There is distension. Tenderness: There is no abdominal tenderness. There is no guarding. Musculoskeletal: Right lower leg: No edema. Left lower leg: No edema. Neurological: Mental Status: He is alert. Peripheral Line Right Hand 20 Gauge (Active) Number of days: STUDIES: Encounter Orders Labs and other studies reviewed with pertinent findings noted below: Lab results within last 7 days (see chart for full results) Units 05/23/23 0615 05/22/23 0539 05/21/23 0441 HGB g/dL 13.3* 14.5 15.1 HCT % 40.7 42.6 44.5 WBC K/uL 5.55 6.30 6.57 PLT K/uL 148 195 151 Lab results within last 7 days (see chart for full results) Units 05/23/23 0615 05/22/23 0539 05/21/23 0441 Sodium mmol/L 138 135 135 Potassium mmol/L 3.2* -- 3.8 Chloride mmol/L 100 100 98 CO2 mmol/L 25 22 23 BUN mg/dL 15 12 11 Creatinine mg/dL 0.9 0.8 0.8 Lab results within last 7 days (see chart for full results) Units 05/22/23 0539 Magnesium mg/dL 2.4 ] Lab results within last 7 days (see chart for full results) Units 05/22/23 0539 05/21/23 0441 Protein g/dL 6.9 7.2 Bilirubin, Total mg/dL 0.9 0.9 Alkaline Phosphatase U/L 107 120 AST U/L -- 51* ALT U/L 23 24 Lab results within last 7 days (see chart for full results) Units 05/21/23 0441 Lactate mmol/L 1.7 Recent Cultures (2 Weeks) 05/21/2023 06/10/2022 08/11/2018 02/27/2018 02/26/2018 02/26/2018 02/26/2018 10/04/2012 4:41 AM 12:04 PM 1:28 PM 11:25 AM 3:45 AM 1:41 AM 1:30 AM 9:56 AM SPECIMEN DESCRIPTION -- -- CLEAN CATCH URINE SPUTUM CLEAN CATCH URINE BLOOD BLOOD CLEAN CATCH URINE CULTURE -- -- LESS THAN 10,000 COLONIES/ML MIXED NORMAL TRICIA -- LESS THAN 1,000 COLONIES/ML (NO GROWTH) NO GROWTH NO GROWTH LESS THAN 1,000 COLONIES/ML (NO GROWTH) BLOOD CULTURE GROWTH No growth to date -- -- -- -- -- -- -- No growth to date QUANT URINE CULTURE GROWTH -- 10,000 to 100,000 colonies/mL Enterococcus species -- -- -- -- -- -- Assessment and Plan IMPRESSION : Principal Problem: Uncontrolled pain Active Problems: History of Hodgkin's disease PMR (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) (HCC) 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 * DIFFERENTIAL AND PLAN: Continue current bowel regimen. Symptomatic care Monitor for BM Continue current pain management. 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 Replenish electrolytes as needed Orders Placed This Encounter Procedures Heart Healthy Diet : Sodium: 2 gm --- Fluid Restriction (ml): None PHARMACOLOGIC VTE PROPHYLAXIS: Enoxaparin CODE STATUS: No Code EXPECTED DISCHARGE DATE: 05/24/2023 I spent a total of 35 minutes coordinating, documenting, and providing care for this patient excluding time spent in the performance of separately billed services. * Bismark Stewart MD - 05/22/2023 11:45 AM EST Images from the original note were not included. [facility] 3B-[id number]/W 88 YO M with nodular sclerosis Hodgkin disease (2011) with prior RT to chest, chronic diastolic (echo 02/18/21-EF 53%)DM, PMR, COPD, chronic resp failure, Stage IV prostate cancer with bone metastasis, [place]'s esophagus with history of stricture in the past, spinal stenosis L4 through L5, macular degeneration, SANJEEV on CPAP who was admitted with ileus in setting of constipation. INTERVAL HISTORY: Doing okay. Pain better controlled. No BM yet. Not nauseous at this time. Tolerated miralax this AM. Objective Physical Exam Most Recent Vital Signs: BP: 159 mmHg/83 mmHg (05/22/23724) Pulse: 77 (05/22/23 075) Temp: 36.83 C (05/22/23724) Resp: 20 (05/22/23724) SpO2: 97 % (05/22/23753) Physical Exam Vitals reviewed. Constitutional: Appearance: He is not ill-appearing or toxic-appearing. Cardiovascular: Rate and Rhythm: Normal rate. Heart sounds: No friction rub. No gallop. Pulmonary: Effort: Pulmonary effort is normal. Breath sounds: No wheezing, rhonchi or rales. Abdominal: General: Bowel sounds are normal. There is distension. Tenderness: There is no abdominal tenderness. There is no guarding. Musculoskeletal: Right lower leg: No edema. Left lower leg: No edema. Neurological: Mental Status: He is alert. Peripheral Line Right Hand 20 Gauge (Active) Number of days: STUDIES: Encounter Orders Labs and other studies reviewed with pertinent findings noted below: Lab results within last 7 days (see chart for full results) Units 05/22/23 0539 05/21/23 0441 HGB g/dL 14.5 15.1 HCT % 42.6 44.5 WBC K/uL 6.30 6.57 PLT K/uL 195 151 Lab results within last 7 days (see chart for full results) Units 05/22/23 0539 05/21/23 0441 Sodium mmol/L 135 135 Potassium mmol/L -- 3.8 Chloride mmol/L 100 98 CO2 mmol/L 22 23 BUN mg/dL 12 11 Creatinine mg/dL 0.8 0.8 Lab results within last 7 days (see chart for full results) Units 05/22/23 0539 Magnesium mg/dL 2.4 ] Lab results within last 7 days (see chart for full results) Units 05/22/23 0539 05/21/23 0441 Protein g/dL 6.9 7.2 Bilirubin, Total mg/dL 0.9 0.9 Alkaline Phosphatase U/L 107 120 AST U/L -- 51* ALT U/L 23 24 Lab results within last 7 days (see chart for full results) Units 05/21/23 0441 Lactate mmol/L 1.7 Recent Cultures (2 Weeks) 05/21/2023 06/10/2022 08/11/2018 02/27/2018 02/26/2018 02/26/2018 02/26/2018 10/04/2012 4:41 AM 12:04 PM 1:28 PM 11:25 AM 3:45 AM 1:41 AM 1:30 AM 9:56 AM SPECIMEN DESCRIPTION -- -- CLEAN CATCH URINE SPUTUM CLEAN CATCH URINE BLOOD BLOOD CLEAN CATCH URINE CULTURE -- -- LESS THAN 10,000 COLONIES/ML MIXED NORMAL TRICIA -- LESS THAN 1,000 COLONIES/ML (NO GROWTH) NO GROWTH NO GROWTH LESS THAN 1,000 COLONIES/ML (NO GROWTH) BLOOD CULTURE GROWTH No growth to date -- -- -- -- -- -- -- No growth to date QUANT URINE CULTURE GROWTH -- 10,000 to 100,000 colonies/mL Enterococcus species -- -- -- -- -- -- Assessment and Plan IMPRESSION : Principal Problem: Uncontrolled pain Active Problems: History of Hodgkin's disease PMR (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) (HCC) 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 * DIFFERENTIAL AND PLAN: Continue current bowel regimen. Symptomatic care Monitor for BM Continue current pain management. 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 Replenish electrolytes as needed PHARMACOLOGIC VTE PROPHYLAXIS: Enoxaparin CODE STATUS: No Code EXPECTED DISCHARGE DATE: 05/24/2023 I spent a total of 50 minutes coordinating, documenting, and providing care for this patient excluding time spent in the performance of separately billed services. documented in this encounter H&P Notes * Ana Ahmadi CRNP - 05/21/2023 10:07 AM EST Images from the original note were not included. [facility] 3B-3019/W PRESENTING PROBLEM: Nausea and vomiting HPI: 88-year-old male with PMHx-nodular sclerosis Hodgkin disease (2011) with prior RT to chest, chronic diastolic (echo 02/18/21-EF 53%)DM, PMR, COPD, chronic resp failure, Stage IV prostate cancer with bone metastasis, [place]'s esophagus with history of stricture in the [...] improvement of his pain and nausea. Also [id number] saline bolus. Admission requested for further management and monitoring. Subjective Patient's past history, medications, and allergies were reviewed. Objective Physical Exam Most Recent Vital Signs: BP: 160 mmHg/85 mmHg (05/21/23946) Pulse: 87 (05/21/23946) Temp: 37.11 C (05/21/23946) Resp: 26 (05/21/23946) SpO2: 97 % (05/21/23946) Physical Exam Vitals and nursing note reviewed. Constitutional: Appearance: He is ill-appearing. Comments: Elderly, TUNUNAK HENT: Head: Normocephalic. Mouth/Throat: Mouth: Mucous membranes are dry. Eyes: Conjunctiva/sclera: Conjunctivae normal. Cardiovascular: Rate and Rhythm: Normal rate and regular rhythm. Heart sounds: No murmur heard. Comments: Trace pitting edema BLE/ankles Pulmonary: Effort: Pulmonary effort is normal. No respiratory distress. Breath sounds: Normal breath sounds. Abdominal: General: Bowel sounds are normal. There is distension. Tenderness: There is abdominal tenderness (mild generalized). Skin: General: Skin is warm and dry. Coloration: Skin is not pale. Neurological: General: No focal deficit present. Mental Status: He is alert and oriented to person, place, and time. Psychiatric: Mood and Affect: Mood normal. Behavior: Behavior normal. Thought Content: Thought content normal. Judgment: Judgment normal. Peripheral Line Right Hand 20 Gauge (Active) Number of days: STUDIES: Encounter Orders Labs and other studies reviewed with pertinent findings noted below: Results for orders placed or performed during the hospital encounter of 05/21/23 BASIC METABOLIC PANEL Result Value Ref Range BUN 11 6 - 20 mg/dL Creatinine 0.8 0.6 - 1.2 mg/dL Estimated Glomerular Filtration Rate 86 >=60 mL/min Sodium 135 135 - 146 mmol/L Potassium 3.8 3.5 - 5.1 mmol/L Chloride 98 98 - 107 mmol/L CO2 23 22 - 32 mmol/L Anion Gap 14 7 - 15 mmol/L Glucose 117 70 - 120 mg/dL Calcium 8.7 8.4 - 10.2 mg/dL LACTATE Result Value Ref Range Lactate 1.7 0.4 - 2.0 mmol/L URINALYSIS, REFLEX TO MICROSCOPIC Result Value Ref Range Color, Urine Yellow Light Yellow, Yellow, Dark Yellow Clarity, Urine Clear Clear Glucose, Urine Negative Negative mg/dL Bilirubin, Urine Negative Negative Ketone, Urine 40 (A) Negative mg/dL Specific [place], Urine 1.011 1.003 - 1.030 Blood, Urine Negative Negative pH, Urine 8.0 (H) 5.0 - 7.5 Units Protein, Urine Trace (A) Negative mg/dL Urobilinogen, Urine 1.0 0.2, 1.0 mg/dL Nitrite, Urine Negative Negative Esterase, Urine Negative Negative Comment, Urine LIPASE Result Value Ref Range Lipase 28 13 - 60 U/L HEPATIC FUNCTION PANEL Result Value Ref Range Albumin 3.7 (L) 3.8 - 5.0 g/dL AST 51 (H) 10 - 50 U/L Alkaline Phosphatase 120 35 - 130 U/L ALT 24 10 - 50 U/L Bilirubin, Total 0.9 <=1.2 mg/dL Bilirubin, Direct 0.2 0.0 - 0.3 mg/dL Protein 7.2 6.0 - 8.3 g/dL BLOOD GAS, VENOUS Result Value Ref Range Temperature 37.0 C pH, Venous 7.496 (H) 7.320 - 7.430 units pCO2, Venous 34.5 (L) 40.0 - 60.0 mmHg pO2, Venous 46.6 25.0 - 50.0 mmHg Base Excess, Venous 3.8 (H) -2.0 - 2.0 mmol/L Hemoglobin, Whole Blood 15.4 14.0 - 16.8 g/dL Oxyhemoglobin, Venous 80.6 40.0 - 85.0 % total Hgb Carboxyhemoglobin, Whole Blood 1.5 <=1.5 % total Hgb Methemoglobin, Whole Blood 0.3 <=1.5 % total Hgb Reduced Hemoglobin, Venous 17.6 % total Hgb O2 Content, Venous 17.4 7.0 - 18.0 %vol Bicarbonate, Whole Blood 26.4 23.0 - 31.0 mmol/L CBC Result Value Ref Range WBC 6.57 4.00 - 10.80 K/uL RBC 4.95 4.50 - 5.25 M/uL HGB 15.1 14.0 - 16.8 g/dL HCT 44.5 40.0 - 48.4 % MCV 89.9 82.0 - 99.5 fL MCH 30.5 27.0 - 34.0 pg MCHC 33.9 32.0 - 36.0 g/dL RDW 13.4 11.5 - 15.5 % PLT 151 140 - 400 K/uL MPV 11.3 6.6 - 11.1 fL nRBCs 0 <=0 /100 WBCs DIFFERENTIAL, AUTOMATED Result Value Ref Range WBC 6.57 4.00 - 10.80 K/uL Neutrophils % 80.6 (H) 40.0 - 75.0 % Lymphocytes % 7.6 (L) 18.0 - 42.0 % Monocytes % 10.7 1.0 - 11.0 % Eosinophils % 0.6 0.0 - 6.0 % Basophils % 0.2 0.0 - 2.0 % Immature Granulocytes % 0.3 0.0 - 2.0 % Absolute Neutrophils 5.30 1.80 - 7.70 K/uL Absolute Lymphocytes 0.50 (L) 1.00 - 4.80 K/ul Absolute Monocytes 0.70 0.00 - 1.10 K/uL Absolute Eosinophils 0.04 0.00 - 0.70 K/uL Absolute Basophils 0.01 0.00 - 0.20 K/uL Absolute Immature Granulocytes 0.02 0.00 - 0.20 K/uL *Note: Due to a large number of results and/or encounters for the requested time period, some results have not been displayed. A complete set of results can be found in Results Review. CT ABD/PELVIS WO IV/ORAL CONTRAST Final Result PROCEDURE INFORMATION: Exam: CT Abdomen And Pelvis Without Contrast Exam date and time: 05/21/2023 5:18 AM Age: 88 years old Clinical indication: Abdominal pain; Generalized; Additional info: Severe abdominal pain, distention, vomiting, no bowel movement for a week. Recent diagnosis of liver lesions, history of prostate cancer TECHNIQUE: Imaging protocol: Computed tomography of the abdomen and pelvis without contrast. Total images: 2 Radiation optimization: All CT scans at this facility use at least one of these dose optimization techniques: automated exposure control; mA and/or kV adjustment per patient size (includes targeted exams where dose is matched to clinical indication); or iterative reconstruction. REPORTING DATA: Count of CT and Cardiac NM exams in prior 12 months: This patient has received [address] and 0 known cardiac nuclear medicine studies in the 12 months prior to the current study. COMPARISON: CT CHEST W CONTRAST 05/09/2023 1:05 PM FINDINGS: Lungs: Calcific pleural plaque in the right lung base unchanged. Emphysematous and fibrotic changes in the lung bases appear similar to 05/09/2023. Diaphragm: Small volume hiatal hernia. Unchanged. Liver: Hypodense nodules scattered throughout the liver are better seen on enhance study 05/09/2023. Splenic capsular calcification again noted along the anterolateral margin unchanged. Gallbladder and bile ducts: Normal. No calcified stones. No ductal dilation. Pancreas: Normal. No ductal dilation. Spleen: See "Liver" finding. Adrenal glands: Normal. No mass. Kidneys and ureters: Normal. No hydronephrosis. Stomach and bowel: Prominent fecal pattern and BS in the colon. No mechanical obstruction. Sigmoid diverticulosis with no acute diverticular inflammation. Appendix: No evidence of appendicitis. Intraperitoneal space: 3.3 cm soft tissue mass in the epigastric region not significantly changed from 05/09/2023 concerning for metastatic focus. Vasculature: Atherosclerotic tortuous thoracic aorta. No aneurysm. Lymph nodes: Linear density adjacent to the origin of the celiac trunk to the left of midline is noted with adjacent infiltration of retroperitoneal adipose tissue, unchanged most likely retracted lymph node. Urinary bladder: Unremarkable as visualized. Reproductive: Stable appearance of the prostate gland. Bones/joints: Small sclerotic lesion in the right femoral head, unchanged. Osseous demineralization and degenerative changes. Soft tissues: Unremarkable. IMPRESSION IMPRESSION: 1. Prominent fecal debris throughout the proximal and mid colon. 2. No mechanical obstruction. 3. Epigastric peritoneal soft tissue mass most likely metastatic lesion, unchanged from most recent study and 02/03/2022. 4. Hepatic hypodensities concerning for metastatic disease. 5. Stable osseous structures. 6. Enlarged prostate gland. THIS DOCUMENT HAS BEEN ELECTRONICALLY SIGNED BY ANNETTE MELISSA DO XR CHEST 1 VIEW Final Result PROCEDURE INFORMATION: Exam: XR Chest Exam date and time: 05/21/2023 4:17 AM Age: 88 years old Clinical indication: Other: SOB and abdominal pain; Additional info: Severe abdominal pain TECHNIQUE: Imaging protocol: Radiologic exam of the chest. Views: 1 view. COMPARISON: CT CHEST W CONTRAST 05/09/2023 1:05 PM CXR 10/09/2022 FINDINGS: Lungs: Stable peribronchial opacity in the right hilar region, unchanged since 10/09/2022. No consolidation. Pleural spaces: Unremarkable. No pleural effusion. No pneumothorax. Heart/Mediastinum: Stable mild cardiomegaly. Bones/joints: Unremarkable. IMPRESSION IMPRESSION: Stable peribronchial opacity in the right hilar region. 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 * DIFFERENTIAL AND PLAN: Admit med-surg observation Uncontrolled pain- --Tylenol 975mg q 8 hrs --ketorolac 15mg IV q 8 hrs mild pain --Morphine 2mg IV q 3 hr mod/severe pain --monitor therapeutic response and adjust accordingly Constipation --give dulcolax supp now and then daily prn. --Miralax daily Nausea/vomiting --zofran 4mg IV q 4 hours prn --Given 2L fluids in ED, will encourage oral fluid intake and monitor. H/o CHF with mild pitting edema on exam today HTN/CHF --Slightly dry d/t N/V and poor intake. --hold PROMOTIONS SPECIALIST lasix, potassium and spironolactone for now. Monitor close for restart. --monitor I&O and daily wt --continue amlodipine, atenolol, benazepril Prostate cancer with mets to bone --keep follow up PET 06/02 --continue doxazosin, finasteride PMR --continue daily prednisone 5mg [place]'s esophagus --continue omeprazole DM-(hgba1c 04/14/23--6.5) --Sliding scale coverage qac and qhs COPD- --stable --continue breo and prn duoneb for shortness of breath SANJEEV --CPAP qhs Chronic resp failure --titrate oxygen to maintain SpO2 >90% PHARMACOLOGIC VTE PROPHYLAXIS: Enoxaparin CODE STATUS: No Code EXPECTED DISCHARGE DATE: 24-48 hrs 75 minutes spent on admission of this patient which include review of EHR, evaluation and discussion of care with patient/family, coordination of care with ED, coordination of care with nursing, coordination of care with admitting hospitalist Dr. Giron. AFTAB Renee Associated attestation - Augustina Giron MD - 05/21/2023 11:04 AM EST I have reviewed the advanced practitioner documentation and agree. I saw and evaluated the patient on date of service referenced in note and have performed the following medically appropriate historyand/or exam: Reports worsening of back pain, generalized abd pain, persistent nausea/vomiting, anorexia, constipation over the past week. Exam notable for dry oral mucosa, abd distention, mild abd tenderness, visual deficits, hearing deficits, trace pedal edema CT abdomen pelvis noted prominent fecal debris throughout proximal and mid colon, no mechanical obstruction, epigastric peritoneal soft tissue mass most likely metastatic lesion unchanged from prior study, hepatic hypodensities, enlarged prostate gland. Intractable nausea and vomiting Ileus Constipation Continue pain control. Tramadol not controlling pain at home Family reported patient does not tolerate oxycodone well. Reported he tolerated morphine better Pain improved with morphine in ER Aggressive bowel regimen Antiemetics Gentle IVF until oral intake improves Hold off home diuretics/potassium for now . documented in this encounter Procedure Notes * Jacob Carmona DO - 05/21/2023 4:23 AM ESTAssociated Order(s): EKG REASON FOR STUDY: SOB (shortness of breath) CONCLUSIONS: Normal sinus rhythm Left axis deviation Left ventricular hypertrophy with secondary QRS widening Abnormal ECG When compared with ECG of 09-MAY-2023 09:19, No significant change was found Ventricular Rate: 84 Atrial Rate: 84 PA Interval: 194 QRS Duration: 124 QT/QTc: 402/475 ms P-R-T [place]: 21 : -44 : 35 degrees documented in this encounter Consult Notes * Jacklyn Steiner, OT - 05/25/2023 1:19 PM ESTAssociated Order(s): ADULT OCCUPATIONAL THERAPY CONSULT IP GENERAL EVALUATION - Occupational Therapy [address] [id number] Name: Dedrick Peters Location: [facility] [id number]-[id number] Date: 05/25/2023 Time: 1:19 PM Dedrick Peters is a 88 year old male. Patient Status: Inpatient Insurance: Payor: B[employer]llium Plan: Bery[employer]ium CLASSIC 1 PART D [facility]-LD Product Type: *No Product type* Patient Seen: at bedside Patient Identified By: Name, ID Band and Date Diagnosis: decreased balance, decreased functional skills (05/25/231318) Status of treatment: OOB evaluation completed (05/25/231318) Orders: OT evaluation and treatment (05/25/231318) Weight Bearing Status: Weight bearing as tolerated (05/25/231318) Precautions: Alarms;Falls;Safety (05/25/231318) Total Treatment Time: 31 (05/25/231318) Past Medical History: Past Medical History: Diagnosis [...] 11/28/2008 Lens replaced by other means OU half-way current use of systemic steroids 10/18/2012 Mediastinal mass 06/16/2011 Nodular prostate without urinary obstruction 10/04/2001 Noise-induced hearing loss Osteoarthrosis Osteoarthrosis, unspecified whether generalized or localized, other specified sites Other visual distortions and entoptic phenomena 03/07/02 os Phlebitis and thrombophlebitis of other deep vessels of lower extremities 11/24/08 [facility] [address] ER. LLE s/p TKA:3-6M coumadin Pneumonia Prostate cancer (HCC) 01/11/2016 Pulmonary arterial hypertension (HCC) Retinal edema 04/01/2010 Sleep apnea, obstructive SPINAL STENOSIS Mild L4-5 11/28/2007 Vitreous degeneration 03/07/02 os Past Surgical History: Past Surgical History: Procedure Laterality Date ARTHROPLASTY KNEE TOTAL 05/12/2008 ARTHROPLASTY KNEE TOTAL performed by KOSTAS YEBOAH at [facility] ARTHROPLASTY KNEE TOTAL 11/19/2008 ARTHROPLASTY KNEE TOTAL performed by OKSTAS YEBOAH at [facility] ARTHROPLASTY KNEE TOTAL bilateral BRONCHOSCOPY, DIAGNOSTIC 06/22/2011 BRONCHOSCOPY DIAGNOSTIC WITH OR WITHOUT WASHING performed by PAM PRATT [place] [facility]ONOSCOPY W/ BIOPSY (RECTUM) 04/05/2007 hyperplastic polyps--repeat 5 years COLONOSCOPY W/ LESION REMOVAL, SNARE 04/05/2007 path pending COLONOSCOPY W/ SUBMUCOUS INJ 04/05/2007 COLONOSCOPY, DIAGNOSTIC (RECTUM) 12/20/2013 COLONOSCOPY FLEXIBLE PROXIMAL DIAGNOSTIC performed by Arnoldo Oseguera MD at [facility]COPY [facility] EGD, FLEXIBLE, DIAGNOSTIC N/A 04/25/2018 hiatal hernia/moderate Schatzki ring, dilated/biopsies show [place]'s esophagitis/recall 1 year/ESOPHAGOGASTRODUODENOSCOPY (EGD), FLEXIBLE, TRANSORAL, DIAGNOSTIC performed by Ulices Chaney MD at OR [facility] EGD, FLEXIBLE, DIAGNOSTIC N/A 05/21/2019 mild schatzki ring, dilated/small hiatal hernia/multiple gastric polyps/biopsies from esophagus andstomach show inflammatory changes/ESOPHAGOGASTRODUODENOSCOPY (EGD), FLEXIBLE, TRANSORAL, DIAGNOSTICperformed by Trina Plaza DO at OR [facility] FLUORO UPPER GI W AIR WO [...] 01/23/2013 #2 Lucentis 0.5mg OS, Dr. Shafer ([facility]# [id number]) INJECTION OF EYE DRUG 02/27/2013 #3 LUCENTIS 0.5mg OS, Dr. Shafer ([facility]:[id number]) INJECTION OF EYE DRUG 04/10/2013 #4 Lucentis 0.5mg OS, Dr. Shafer INJECTION OF EYE DRUG 05/08/2013 #5 Lucentis 0.5mg OS, [facility]#[id number] INJECTION OF EYE DRUG 06/12/2013 #6 Lucentis 0.5mg OS, Dr. Shafer INJECTION OF EYE DRUG 08/02/2013 #7 Lucentis 0.5mg OS, Dr. Shafer INJECTION OF EYE DRUG 09/17/2013 #8 Lucentis 0.5mg OS, Dr. Shafer INJECTION OF EYE DRUG 11/11/2013 #9 Lucentis 0.5mg OS, Dr. Shafer ([facility]: [id number]) INJECTION OF EYE DRUG 02/07/2014 #10 Lucentis 0.5mg OS, Dr. Shafer ([facility]: [id number]) INJECTION OF EYE DRUG 03/28/2014 #11 Lucentis [...] DRUG Right 11/29/2021 #27 Lucentis OD, Dr Sahfer INJECTION OF EYE DRUG Right 01/17/2022 # [...] OF EYE DRUG Right 03/27/2023 #36 Lucentis .05mg; Dr Shafer INTERSTITIAL RADIATION APPLICATION, COMPLEX MISCELLANEOUS [...] LUCENTIS 0.5MG CONSENT SIGNED OS; DR HOLLIS FONTANEZANEOUS ORDER ([facility] ONLY) Bilateral 06/27/2018-06/27/2019 LUCENTIS CONSENT [...] performed by Jaya Velazquez MD at OR [facility] RESECTION OF CHEST TUMOR 07/11/2011 EXCISION OF MEDIASTINAL TUMOR performed by PAM KRISHNAMURTHY [place] [facility] [place]PHARM) 03/2008 normal, EF 71% Social History/Disposition Lives with: Spouse (05/25/231318) Assistance available: Yes (05/25/231318) Dwelling type: Single story home (05/25/231318) Entry steps: None (05/25/231318) Inside steps: None (05/25/231318) Bedroom location: 1st floor (05/25/231318) Bath location: 1st floor full bath (05/25/231318) Prior Level of Function Reported by: Patient;Family;Chart review (05/25/231318) Ambulation: Ambulatory with device (05/25/231318) Ambulatory Device: Rollator (uses RW at night) (05/25/231318) Grooming: Independent (05/25/231318) Bathing: Assistance (05/25/231318) Dressing: Assistance (05/25/231318) Feeding: Independent (05/25/231318) Toileting: Independent (05/25/231318) Meal Prep: Assistance (pt gets selfs drinks, ceral, snacks) (05/25/231318) Homemaking: Assistance (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 Pain: Patient has complaints of pain. Pain located back and abdomen pre session 10 post session back pain 12/03. Pt's care nurse notified post session. Observations Consciousness: Alert (05/25/231318) Orientation: Oriented times 4 (05/25/231318) Psychosocial: Patient can communicate basic needs;Patient can converse in a social setting (hard ofhearing) (05/25/231318) Visual Deficits: (blind left eye. limited vision right eye) (05/25/231318) Safety awareness: The Patient verbalizes insight of current deficits.;The Patient demonstrates carryover of insight during functional tasks. (05/25/231318) Other Findings Light touch sensation: LUE;RUE;Intact (per pt) (05/25/231318) Current Functional Status: Bilateral Upper Extremity Hand Dominance: Right (05/25/231318) Range of Motion: WFL, except (05/25/231318) LUE: Shoulder (flexion ~165) (05/25/231318) Strength Assessment: (at least 3+/5 throughout (with exception of left shoulder)) (05/25/231318) Dressing Upper Body: Minimal Assistance (05/25/231318) Lower Body: Dependent (requires A at baseline) (05/25/231318) Functional Ambulation Assistive Device: Rolling walker (05/25/231318) Distance in feet:: 308 (05/25/231318) Level of Assistance: Supervision (Please Comment) (05/25/231318) OT Transfers Sit-Stand: Supervision (Please comment) (05/25/231318) Stand-Sit: Supervision (Please comment) (05/25/231318) Alarm Status Patient positioned in: Chair (05/25/231318) With: (nurse present) (05/25/231318) Patient and Family Goals: to get well and to return home Patient Education Education Topic: Plan of care goals;Role of OT;Energy conservation (05/25/231318) Review of Precautions: Safety;Fall (05/25/231318) Education Provided to: Patient;Family (05/25/231318) Response to Education: Receptive and agreeable to education (05/25/231318) Barriers to learning: Visual impairments (05/25/231318) Preferred learning method: Auditory;Tactile (05/25/231318) Treatment Provided: Therapeutic Activity: 16 minutes Evaluation Moderate Complexity 15 minutes - 15054: Patient was cooperative, pleasant, motivated, and alert during treatment session. Moderate complexity evaluation performed and 3-5 activity limitations were identified, including ADL deficit, functional mobility deficit, decreased endurance, impaired balance, and decreased activity tolerance. Minimal or moderate modification of the functional task was necessary to complete the evaluation. Deficits Requiring O.T. Treatment: Deficits requiring O.T. treatment needs: ADL/self-care;Balance;Endurance;Functional mobility;Visual deficits (activity tolerance) (05/25/231318) Goals: Bathing: Upper: minimal assistance (pt does 75%). Lower: moderate assistance (pt does 50%) Transfers with: Toilet: supervision (with cues). Demonstrates toileting at supervision Demonstrates ability to tolerate out of bed mobility at least 3 times a day for 2 consecutive days. Goal Time Frame: Within 10 treatment sessions. Assessment: The patient tolerated OT well. He required minimal assistance with upper-body dressing.He completed functional transfers with close supervision. He ambulated 308' with the RW and supervision. He requires assistance with lower- body dressing and bathing at baseline. OT AM-PAC score is 15. Would consider home with post-acute care services which may include outpatient therapy or home health. The level of care will be determined in collaboration with the patient, family/caregiver, and care team members. OT will follow and treat at [facility] to maximize the patient's functional skills while at the acute care level. Treatment Plan: Visual Compensatory Strategies, Energy Conservation, Safety, Bed mobility training,Functional Ambulation, Transfer training, Upper extremity strengthening, Balance activities, ADL training, and Endurance Anticipated Frequency (on eval): 1 to 3 times per week (05/25/231318) AM-PAC Help From Another Person Eating Meals: A little (05/25/231318) Help From Another Person Taking Care of Personal Grooming: A little (05/25/231318) Help From Another Person To Put On/Take Off Upper Body Clothing: A little (05/25/231318) Help From Another Person To Put On/Take Off Lower Body Clothing: Total (05/25/231318) Help From Another Person Toileting: A little (05/25/231318) Help From Another Person Bathing: A lot (05/25/231318) OT AM-PAC Score: 15 (05/25/231318) OT AM-PAC t-Scale Score: 34.69 (05/25/231318) HLM (Highest Level of Mobility) Goal: Level 6 walk 10 steps or more (05/25/23 1019) * Diana Gautam PT - 05/24/2023 2:35 PM ESTAssociated Order(s): ADULT PHYSICAL THERAPY CONSULT IP GENERAL EVALUATION - Physical Therapy [facility]-[address] [address] Name: Dedrick Peters Location: [facility] [id number] Date: 05/24/2023 Time: 2:35 PM Dedrick Peters is a/an 88 year old male. "88 YO M with nodular sclerosis Hodgkin disease (2011) with prior RT to chest, chronic diastolic (echo 02/18/21-EF 53%)DM, PMR, COPD, chronic resp failure, Stage IV prostate cancer with bone metastasis, [place]'s esophagus with history of stricture in the past, spinal stenosis L4 through L5, maculardegeneration, SANJEEV on CPAP who was admitted with ileus in setting of constipation. " Patient Status: Inpatient Insurance: Payor: [employer]av[employer] Plan: Beryllium CLASSIC 1 PART D MC-LD Product Type: *No Product type* Patient Seen: at bedside, nursing cleared patient for therapy Patient Identified By: Name, ID Band and Date Diagnosis: Gait dysfunction, pain, ileus, constipation, prostate cancer with bone mets (05/24/231434) Status of treatment: OOB evaluation completed (05/24/231434) Orders: PT evaluation and treatment (05/24/231434) Weight Bearing Status: Weight bearing as tolerated (05/24/231434) Precautions: Alarms;Falls;Oxygen;Safety (05/24/231434) Total Treatment Time--free text: 42 min (05/24/231434) Past Medical History: Past Medical History: Diagnosis [...] 11/28/2008 Lens replaced by other means OU half-way current use of systemic steroids 10/18/2012 Mediastinal mass 06/16/2011 Nodular prostate without urinary obstruction 10/04/2001 Noise-induced hearing loss Osteoarthrosis Osteoarthrosis, unspecified whether generalized or localized, other specified sites Other visual distortions and entoptic phenomena 03/07/02 os Phlebitis and thrombophlebitis of other deep vessels of lower extremities 11/24/08 [facility] [address] [facility]. LLE s/p TKA:3-6M coumadin Pneumonia Prostate cancer (HCC) 01/11/2016 Pulmonary arterial hypertension (HCC) Retinal edema 04/01/2010 Sleep apnea, obstructive SPINAL STENOSIS Mild L4-5 11/28/2007 Vitreous degeneration 03/07/02 os Past Surgical History: Past Surgical History: Procedure Laterality Date ARTHROPLASTY KNEE TOTAL 05/12/2008 ARTHROPLASTY KNEE TOTAL performed by KOSTAS YEBOAH at [facility] ARTHROPLASTY KNEE TOTAL 11/19/2008 ARTHROPLASTY KNEE TOTAL performed by KOSTAS YEBOAH at [facility] ARTHROPLASTY KNEE TOTAL bilateral BRONCHOSCOPY, DIAGNOSTIC 06/22/2011 BRONCHOSCOPY DIAGNOSTIC WITH OR WITHOUT WASHING performed by PAM PRATT [place] [facility] COLONOSCOPY W/ BIOPSY (RECTUM) 04/05/2007 hyperplastic polyps--repeat 5 years COLONOSCOPY W/ LESION REMOVAL, SNARE 04/05/2007 path pending COLONOSCOPY W/ SUBMUCOUS INJ 04/05/2007 COLONOSCOPY, DIAGNOSTIC (RECTUM) 12/20/2013 COLONOSCOPY FLEXIBLE PROXIMAL DIAGNOSTIC performed by Arnoldo Oseguera MD at ENDOSCOPY [facility] EGD, FLEXIBLE, DIAGNOSTIC N/A 04/25/2018 hiatal hernia/moderate Schatzki ring, dilated/biopsies show [place]'s esophagitis/recall 1 year/ESOPHAGOGASTRODUODENOSCOPY (EGD), FLEXIBLE, TRANSORAL, DIAGNOSTIC performed by Ulices Chaney MD at OR [facility] EGD, FLEXIBLE, DIAGNOSTIC N/A 05/21/2019 mild schatzki ring, dilated/small hiatal hernia/multiple gastric polyps/biopsies from esophagus andstomach show inflammatory changes/ESOPHAGOGASTRODUODENOSCOPY (EGD), FLEXIBLE, TRANSORAL, DIAGNOSTICperformed by Trina Plaza DO at OR [facility] FLUORO UPPER GI W AIR WO KUB 01/2010 small-mod HH w some reflux INJECT DX/THER SUBSTANCE INTERLAMINAR LUMBAR/SACRAL W IMAGE GUIDE 01/30/2017 INJECTION SPINE LUMBAR OR SACRAL performed by John Ware DO at OR [facility] INJECT DX/THER SUBSTANCE INTERLAMINAR LUMBAR/SACRAL W IMAGE GUIDE 02/16/2017 INJECTION SPINE LUMBAR OR SACRAL performed by John Ware DO at OR [facility] INJECTION OF EYE DRUG 04/01/2010 #1 [...] 01/23/2013 #2 Lucentis 0.5mg OS, Dr. Shafer ([facility]# [id number]) INJECTION OF EYE DRUG 02/27/2013 #3 LUCENTIS 0.5mg OS, Dr. Shafer ([facility]:[id number]) INJECTION OF EYE DRUG 04/10/2013 #4 Lucentis 0.5mg OS, Dr. Shafer INJECTION OF EYE DRUG 05/08/2013 #5 Lucentis 0.5mg OS, [facility]#[id number] INJECTION OF EYE DRUG 06/12/2013 #6 Lucentis 0.5mg OS, Dr. Shafer INJECTION OF EYE DRUG 08/02/2013 #7 Lucentis 0.5mg OS, Dr. Shafer INJECTION OF EYE DRUG 09/17/2013 #8 Lucentis 0.5mg OS, Dr. Shafer INJECTION OF EYE DRUG 11/11/2013 #9 Lucentis 0.5mg OS, Dr. Shafer ([facility]: [id number]) INJECTION OF EYE DRUG 02/07/2014 #10 Lucentis 0.5mg OS, Dr. Shafer ([facility]: [id number]) INJECTION OF EYE DRUG 03/28/2014 #11 Lucentis [...] OF EYE DRUG Right 03/27/2023 #36 Lucentis .05mg; Dr Shafer INTERSTITIAL RADIATION APPLICATION, COMPLEX MISCELLANEOUS [...] 11/11/2013-11/11/2014 LUCENTIS 0.5MG CONSENT OS SIGNED;DR HOLLIS ZUULAGA ORDER ([facility] ONLY) Left 12/23/2014-12/24/2015 LUCENTIS 0.5MG [...] (INFORMATION) Right LUCENTIS 0.5MG OD CONSENT DR. SHAFRE/ELLEN EXP. 08/27/22 OTHER (INFORMATION) LUCENTIS OU CONSENT SIGNED Dr. Araiza (exp 09-16-23) RADIATION THERAPY MANAGEMENT 12/21/2011 radiation treatments x 17 (chest) Oncologist Dr. Izquierdo REMOVE CATARACT, INSERT LENS PROSTH 01/02/2013 OS-Dr[address] Velazquez REMOVE CATARACT, INSERT LENS PROSTH 11/07/2013 EXTRACAPSULAR CATARACT REMOVAL WITH INTRAOCULAR LENS performed by Jaya Velazquez MD at OR [facility] RESECTION OF CHEST TUMOR 07/11/2011 EXCISION OF MEDIASTINAL TUMOR performed by PAM KRISHNAMURTHY [place] [facility] [place] [place]ARM) 03/2008 normal, EF 71% Subjective: "This (walking) is what I need to do more of at home." Social History/Disposition Lives with: Spouse (05/24/231434) Assistance available: Yes (05/24/231434) Dwelling type: Single story home (05/24/231434) Entry steps: None (05/24/231434) Inside steps: None (05/24/231434) Bedroom location: 1st floor (05/24/231434) Bath location: 1st floor full bath (05/24/231434) Prior Level of Function Reported by: Patient;Family (05/24/231434) Ambulation: Ambulatory with device (05/24/231434) Ambulatory Device: Rollator (05/24/231434) Observations Consciousness: Alert (05/24/231434) Orientation: Oriented times 4 (05/24/231434) Psychosocial: Patient can communicate basic needs;Patient can converse in a social setting (05/24/231434) Other Findings: Yes (05/24/231434) Findings: Light touch sensation;Edema (05/24/231434) Light Touch Sensation Results: Intact;LLE;RLE (05/24/231434) Edema Results: Impaired;LLE;RLE (05/24/231434) Sitting Posture: Forward head;Rounded shoulders (05/24/231434) Standing Posture: Forward head;Rounded shoulders (05/24/231434) Pain: Patient has complaints of pain. Pain located back 10. Strength Assessment Strength Assessment: (BLE strength grossly 4/5 to 4+/5) (05/24/231434) Transfers Sit-Stand: Contact Guard (to supervision) (05/24/231434) Stand-Sit: Contact Guard (to supervision) (05/24/231434) Ambulation: Distance ambulated (feet): 300 ft Assistive Device: Rolling walker Assist: Contact Guard to supervision Balance Sit (Static): Good (05/24/231434) Sit (Dynamic): Good (05/24/231434) Stand (Static): Fair (05/24/231434) Stand (Dynamic): Fair (05/24/231434) Patient and or Family Goal(s): to get well and to return home Patient Education Review of Precautions: Safety;Fall (05/24/231434) Safety Awareness: Patient verbalizes insight of current deficits;Patient demonstrates carryover of insight during functional tasks (05/24/231434) Preferred learning method: Combination (05/24/231434) Barriers to learning: Visual impairments;Hearing;Medical Status (blind left eye, limited vision right eye) (05/24/231434) Topic of Education: Safety with mobility, Goals/plan of care, Use of assistive device, and Fall prevention Method of Education: Verbal discussion and explanation provided to patient and spouse: verbalized understanding and or agreement of this information Treatment Provided: Therapeutic Activities 12 minutes: transfer training toilet transfer training Gait Training 15 minutes: gait training with rolling walker Evaluation Moderate Complexity 15 minutes - 27212: Patient was cooperative, pleasant, motivated, and alert during treatment session. Moderate complexity evaluation performed and 1-2 personal factors or comorbidities were identified that will impact plan of care, including visual deficits, history of COPD, and metastatic cancer and evolving presentation. Patient presents with limitations in strength, transfers, gait, balance, and endurance, which will impact plan of care. These limitations will be addressed by the goals set for this patient. Alarm Status Patient positioned in: Chair (05/24/231434) With: Pressure pad alarm intact and functioning and call palomo in reach (05/24/231434) Goals: Demonstrate Transfers with: Sit to stand: modified independent (with device or slow) Bed to chair: modified independent (with device or slow) Demonstrate Ambulation: assistive device: 4-wheel walker distance in feet: 250 ft+ level of assistance on level surface: modified independent (with device or slow) Time Frame: 1-10 sessions Assessment: Dedrick Peters was able to transfer and ambulate 300 ft with rolling walker and contact guard to supervision assist. SpO2 90% and above on 2 L O2 via NC with activity. [facility] mobility score of 18. Will continue to follow while at [facility]. When medically ready for discharge, Would consider homewith post-acute care services which may include outpatient therapy or home health. The level of care will be determined in collaboration with the patient, family/caregiver, and care team members. Note: on entering room pt attempting to ambulate to bathroom with assist of spouse without device. Unsteadiness evident. Had pt sit back down and assisted to restroom with rolling walker. Advised pt and spouse that he is recommended to use rolling walker for all out of bed mobility and to ring for staff assistance. Verbalized understanding. Deficits requiring P.T. treatment needs: Mobility;Balance (05/24/231434) Equipment Needs: Equipment needs: Rollator (already owns and uses) (05/24/231434) Treatment Plan: Transfer training, Gait training, ROM exercises, Strengthening exercises, Balance activities, and Educate on safety with fall prevention. Anticipated Frequency (on eval): 3 to 5 times per week (05/24/231434) AM PAC Score with Stairs: 18 documented in this encounter Nursing Notes * Amanda Ibarra LPN - 05/23/2023 3:13 PM EST 1408 Dulcolax given as per Patient request. * Genevieve Montes RN - 05/22/2023 10:32 PM EST Clinical Goal(s): Pt will verbalize having adequate pain control throughout this shift (05/22/23 0700) Possible barriers to meeting goal(s)/advancing plan of care: admitting diagnosis Stability of the patient: Moderately stable - low risk of patient condition declining or worsening Summary regarding today's goal(s): Met: patient verbalized pain is more tolerable during this shift. Recommendations: continue plan of care. Frequent pain assessments, implement pain reduction interventions as indicated. * Jayleen Good RN - 05/22/2023 10:31 AM EST 0810 Pt A&Ox4, VS within pt's NL, BP elevated slightly elevated, c/o pain, see flowsheets and MAR. Asmt, non-PO meds given. Waiting for pain/nausea to subside before giving PO meds. Daughter at bedside. Call palomo within reach. 1015 Morning med pass complete. Held zinc, mag, tums, and lutein vitamin. Pt refused, states he is too nauseated to take more than necessary. * Keven Frias RN - 05/21/2023 2:46 PM EST Family is cleared with Nursing Ignition Expert to stay as long as the pt needs. Pt is [place] but has hearing aids here. Pt is also blind in L eye and has difficulty seeing with the other eye. Pt given pressure sensitive call palomo and has demonstrated appropriate use. Pt is very concerned about being "isolated" because he had COVID and had been isolated previously and was not allowed to have visitors at that time. * Bk Castillo RN - 05/21/2023 11:30 AM EST Patient given miralax per order in water. Patient drank 240cc water followed by a bout of emesis which appeared to be clear water. Patient denied lunch tray. Suppository and zofran administered IV with morphine for 8/10 back pain. Did speak with Dr Giron on phone regarding patient status. Order obtained for SMOG enema and low rate IVF for now. Attempted to call x2 to complete med rec. Will continue to try for completion. 1305: SMOG enema administered with patient right side lying. Patient had scant brown drainage. 1511: Patient has not had BM yet. Resting in chair at this time. * Bk Castillo RN - 05/21/2023 10:02 AM EST Patient arrived to room 3019W at 0945, transferred x1 assist from wheelchair to bed. Patient situated to room and touch call palomo provided d/t patient's visual impairment. Patient does endorse nauseaand back pain at this time. Daughter at bedside to assist with admission questions. Dual Licensed Skin Assessment completed by Barbara Castillo RN and Miguel Garcia RN. The patient is/has a N/A Skin Breakdown (includes non blanchable erythema): No documented in this encounter ED Notes * Brenna Elena MD - 05/21/2023 4:07 AM ESTAssociated Order(s): ECG Interpret HISTORY OF PRESENT ILLNESS Dedrick "Octavio" Karen Peters is a 88 year old male who presents to the ED for evaluation of Vomiting. The patient was seen at 05/21/23 0401. Severe back pain. No bowel movement for maybe a week. A lot of nausea and vomiting today. Not able to keep food down. Generalized abdominal pain for days, and his abdomen is also distended. No improvement with tramadol. The patient was seen here about a week ago. Apparently has been diagnosed with metastatic lesion. He is scheduled for PET scan on approximately June 01. He is now reporting dysuria The patient's walked into the room as history and exam were completed History provided by: patient History provided by comment: And daughter Vomiting Associated symptoms: abdominal pain Associated symptoms: no cough, no diarrhea, no fever, no headaches, no myalgias and no sore throat Review of Systems Constitutional: Negative for fever. HENT: Negative for congestion, ear pain, rhinorrhea and sore throat. Eyes: Positive for visual disturbance (Patient has blindness in 1 eye and very poor and only peripheral vision in the other eye). Respiratory: Negative for cough and shortness of breath. Cardiovascular: Negative for chest pain and leg swelling. Gastrointestinal: Positive for abdominal distention, abdominal pain, constipation, nausea and vomiting. Negative for diarrhea. Genitourinary: Positive for dysuria. Negative for frequency and hematuria. Musculoskeletal: Positive for back pain. Negative for myalgias. Skin: Negative for rash. Neurological: Negative for dizziness, weakness, light-headedness and headaches. All other systems reviewed and are negative. The patient's allergies, past history, and medications were reviewed. PHYSICAL EXAM Initial Vitals (see all): BP 182/89 | Pulse 86 | Resp 22 | Temp 97.2 | O2 96 %, Room Air, None | Weight 105.46 kg | Height 172.7 cm | BMI 35.35 kg/m2 Initial Pain Assessment (see all): 10 (severe pain)/10, Sharp, location: Abd ([facility] Adult Scale 0-10) Physical Exam Vitals and nursing note reviewed. Constitutional: General: He is in acute distress (Moderate to severe, breathless and tachypneic, gives little history). HENT: Head: Normocephalic and atraumatic. Neck: Thyroid: No thyromegaly. Trachea: No tracheal deviation. Cardiovascular: Rate and Rhythm: Regular rhythm. Tachycardia present. Pulses: Dorsalis pedis pulses are 2+ on the right side and 2+ on the left side. Heart sounds: No murmur heard. No gallop. Pulmonary: Effort: Pulmonary effort is normal. No respiratory distress. Breath sounds: Normal breath sounds. Abdominal: General: Bowel sounds are normal. There is distension. Palpations: Abdomen is soft. Tenderness: There is generalized abdominal tenderness. There is no guarding or rebound. Comments: Hyperactive bowel sounds right upper abdomen, somewhat diminished bowel sounds left upperabdomen. Normal bowel sounds bilateral lower abdomen Musculoskeletal: General: No swelling, tenderness or deformity. Normal range of motion. Cervical back: Normal range of motion and neck supple. No muscular tenderness. Right lower leg: No edema. Left lower leg: No edema. Lymphadenopathy: Cervical: No cervical adenopathy. Skin: General: Skin is warm and dry. Coloration: Skin is not cyanotic. Findings: No rash. Nails: There is no clubbing. Neurological: Mental Status: He is alert. He is confused. GCS: GCS eye subscore is 4. GCS verbal subscore is 5. GCS motor subscore is 6. Psychiatric: Mood and Affect: Mood normal. Speech: Speech normal. Behavior: Behavior normal. Behavior is cooperative. PROCEDURES AND TREATMENTS ED Orders | ED Results ECG Interpret Date/Time: 05/21/2023 4:54 AM Performed by: Brenna Elena MD Authorized by: Brenna Elena MD Previous ECG: Previous ECG: Compared to current Comments: Done at 04:23 shows normal sinus rhythm, rate 84, left axis deviation. Nonspecific intraventricularconduction delay.? LVH. Compared to prior EKG of 05/09/2023 done at 09:19, there is no significant change MEDICAL DECISION MAKING Nursing notes and vital signs were reviewed. ED Course as of 05/21/23 0850 Sun May 21, 2023 0454 One view chest x-ray: Tortuous aorta,? Right perihilar infiltrate. No free air. ED physician interpretation [DH] 0609 Per ED nursing staff pulse ox is currently 86% on room air. Not sure if this is due to morphine, patient also has received 1 L of a 2 L IV fluid bolus. Will discontinue the 2nd L of IV fluids. Nursing staff will apply nasal cannula the patient [DH] 0743 Reassessment: Patient is not sure if he feels he needs to stay in the hospital middle. No signs of obstruction on CT, does have right colon constipation. Family says tramadol at home has not been helping Will have nurse give p.o. fluid trial [DH] 0748 Per review of EMR patient has tolerated Dilaudid pills in the past. [DH] ED Course User Index [DH] Brenna Elena MD Differential Diagnoses Based on my history, physical exam, and evaluation, the differential includes, but is not limited, to the following diagnoses: Bowel obstruction, bowel perforation, sepsis, doubt pulmonary embolism. Metastatic cancer. Amount and/or Complexity of Data Reviewed Labs: ordered. Radiology: ordered. ECG/medicine tests: ordered and independent interpretation performed. Risk Prescription drug management. Decision regarding hospitalization. Clinical Impressions Uncontrolled pain Nausea and vomiting, unspecified vomiting type Metastatic malignant neoplasm, unspecified site (HCC) Disposition Admitted. I discussed the management of this patient with the admitting provider and I made a decision to admit the patient. Admission Order Ordered Status . 05/21/23 0839 Assign to Observation ONCE Ordered Brenna Elena This chart was completed in part utilizing [employer] Speech Voice Recognition Software. Grammatical errors, random word insertions, prounoun errors, and incomplete sentences are an occasional consequence of this system due to software limitations, ambient noise, and hardware issues. Any formal questions or concerns about the content, text, or information contained within the body of this dictation should be directly addressed to the provider for clarification. Brenna Elena MD 05/21/2023 8:51 AM * Michele Camarillo RN - 05/21/2023 3:57 AM EST Pt presents via ALS from home for evaluation of vomiting. Per EMS, pt has prostate CA and was told last week that he had mets to the liver. Pt has not been able to keep anything down for the past three days. Abd is firm and distended. 4 mg zofran and NSS fluids given enroute. documented in this encounter Miscellaneous Notes * Pt Handout (on AVS) - Brenna Mcfadden RN - 05/27/2023 12:29 PM EST Images from the original note were not included. [id number] Constipation (Adult) Constipation means that you have bowel movements that are less frequent than usual. Stools often become very hard and difficult to pass. Constipation is very common. At some point in life, it affects almost everyone. Since everyone's bowel habits are different, what is constipation to one person may not be to another. Your healthcare provider may do tests to diagnose constipation. It depends on what they find when evaluating you. Symptoms of constipation include: Abdominal pain Bloating Vomiting Painful bowel movements Itching, swelling, bleeding, or pain around the anus Causes Constipation can have many causes. These include: Diet low in fiber Too much dairy Not drinking enough liquids Lack of exercise or physical activity (especially true for older adults) Changes in lifestyle or daily routine, including , aging, work, and travel Frequent use or misuse of laxatives Ignoring the urge to have a bowel movement or delaying it until later Medicines, such as certain prescription pain medicines, iron supplements, antacids, certain antidepressants, and calcium supplements Diseases like irritable bowel syndrome, bowel obstructions, stroke, diabetes, thyroid disease, Parkinson disease, hemorrhoids, and colon cancer Complications Possible complications of constipation can include: Hemorrhoids Rectal bleeding from hemorrhoids or anal fissures (skin tears) Hernias Chronic constipation Fecal impaction, a severe form of constipation in which a large amount of hard stool is in your rectum that you can't pass Bowel obstruction or perforation Home care All treatment should be done after talking with your healthcare provider. This is especially true if you have another medical problem, are taking prescription medicines, or are an older adult. Treatment most often involves lifestyle changes. You may also need medicines. Your healthcare provider will tell you which will work best for you. Follow the advice below to help avoid this problem in the future. Lifestyle changes These lifestyle changes can help prevent constipation: Diet. Eat a high-fiber diet, with fresh fruit and vegetables, and reduce dairy intake, meats, and processed foods Fluids. It's important to get enough fluids each day. Drink plenty of water when you eat more fiber. If you are on diet that limits the amount of fluid you can have, talk about this with your healthcare provider. Regular exercise. Check with your healthcare provider first. Medicines Take any medicines as directed. Some laxatives are safe to use only every now and then. Others can be taken on a regular basis. While laxatives don't cause bowel dependence, they are treating the symptoms. So your constipation may return if you don't make other changes. Talk with your healthcare provider or pharmacist if you have questions. Prescription pain medicines can cause constipation. If you are taking this kind of medicine, ask your healthcare provider if you should also take a stool softener. Medicines you may take to treat constipation include: Fiber supplements Stool softeners Laxatives Enemas Rectal suppositories Follow-up care Follow up with your healthcare provider if symptoms don't get better in the next few days. You may need to have more tests or see a specialist. Call 911 Call 911 if any of these occur: Trouble breathing Stiff, rigid abdomen that is severely painful to touch Large amount of blood in the stool Confusion Fainting or loss of consciousness Rapid heart rate Chest pain When to seek medical advice Call your healthcare provider right away if any of these occur: Fever of 100.4F (38C) or higher, or as directed by your healthcare provider Failure to resume normal bowel movements Pain in your abdomen or back gets worse Nausea or vomiting Swelling in your abdomen Small amount of blood in the stool Black, tarry stool Involuntary weight loss Weakness Last Reviewed Date: 06/26/202119996642-2487 [employer]. All rights reserved. This information is not intended as a substitute for professional medical care. Always follow your healthcare professional's instructions. * Pt Handout (on AVS) - Brenna Mcfadden RN - 05/27/2023 12:28 PM EST Images from the original note were not included. [id number] Polyethylene Glycol 3350 Powder For Oral Solution Brands: ClearLax, Gavilax, GentleLax, HealthyLax, Miralax, PureLax Uses For bowel movement. Instructions Mix the medicine with 4-8 oz. (120-240 mL) of water or juice, then drink. Drink the medicine immediately after mixing. This medicine may be taken with or without food. Keep this medicine at room temperature. Protect from moisture and high humidity. Keep the medicine away from heat and light. Frequent or intermediate project manager use of laxatives can cause your bowels to depend on them. Do not use laxatives for more than one week unless directed by your doctor. To reduce constipation, eat high fiber foods, drink plenty of water and exercise. Tell your doctor and pharmacist about all your medicines. Include prescription and ojar-lyw-rqinaaldngizxjsp, vitamins, and herbal medicines. Tell your doctor if symptoms do not get better or if they get worse. Cautions Tell your doctor and pharmacist if you ever had an allergic reaction to a medicine. Do not use the medication any more than instructed. It is unknown if this medicine passes into breast milk. Ask your doctor before . During , this medicine should be used only when clearly needed. Talk to your doctor about the risks and benefits. Do not start or stop any other medicines without first speaking to your doctor or pharmacist. Side Effects The following is a list of some common side effects from this medicine. Please speak with your doctor about what you should do if you experience these or other side effects. bloating diarrhea excess gas nausea stomach upset or abdominal pain Call your doctor or get medical help right away if you notice any of these more serious side effects: severe or persistent abdominal pain severe, watery or bloody diarrhea stomach pain blood in stool A few people may have an allergic reaction to this medicine. Symptoms can include difficulty breathing, skin rash, itching, swelling, or severe dizziness. If you notice any of these symptoms, seek medical help quickly. Extra Please speak with your doctor, nurse, or pharmacist if you have any questions about this medicine. [email or web address]/[email or web address] IMPORTANT NOTE: This document tells you briefly how to take your medicine, but it does not tell youall there is to know about it. Your doctor or pharmacist may give you other documents about your medicine. Please talk to them if you have any questions. Always follow their advice. There is a more complete description of this medicine available in Hungarian. Scan this code on your smartphone or tablet or use the web address below. You can also ask your pharmacist for a printout. If you have any questions, please ask your pharmacist. The display and use of this drug information is subject to Terms of Use. Copyright(c) 2022 [employer]. 3214-0999 The [employer]. All rights reserved. This information is not intended as a substitute for professional medical care. Always follow your healthcare professional's instructions. * Pt Handout (on AVS) - Brenna Mcfadden RN - 05/27/2023 12:28 PM EST Images from the original note were not included. [id number] Docusate Oral Capsule Brands: Colace, Doculase, DOK, Kaopectate Stool Softener, Briones Stool Softener, Surfak Stool Softener Uses For bowel movement. Instructions Take the medicine with 250 mL (1 cup) of water. Keep the medicine at room temperature. Avoid heat and direct light. To reduce constipation, eat high fiber foods, drink plenty of water and exercise. If you forget to take a dose on time, take it as soon as you remember. If it is almost time for thenext dose, do not take the missed dose. Return to your normal schedule. Do not take 2 doses at one time. Tell your doctor and pharmacist about all your medicines. Include prescription and ixja-sak-lwhswftpueifydkc, vitamins, and herbal medicines. Tell your doctor if symptoms do not get better or if they get worse. Cautions Tell your doctor and pharmacist if you ever had an allergic reaction to a medicine. Do not use the medication any more than instructed. Tell the doctor or pharmacist if you are , planning to be , or . Side Effects The following is a list of some common side effects from this medicine. Please speak with your doctor about what you should do if you experience these or other side effects. abdominal cramps diarrhea stomach upset or abdominal pain Call your doctor or get medical help right away if you notice any of these more serious side effects: blood in stool A few people may have an allergic reaction to this medicine. Symptoms can include difficulty breathing, skin rash, itching, swelling, or severe dizziness. If you notice any of these symptoms, seek medical help quickly. Extra Please speak with your doctor, nurse, or pharmacist if you have any questions about this medicine. [email or web address]/fdbpem/9109 IMPORTANT NOTE: This document tells you briefly how to take your medicine, but it does not tell youall there is to know about it. Your doctor or pharmacist may give you other documents about your medicine. Please talk to them if you have any questions. Always follow their advice. There is a more complete description of this medicine available in Hungarian. Scan this code on your smartphone or tablet or use the web address below. You can also ask your pharmacist for a printout. If you have any questions, please ask your pharmacist. The display and use of this drug information is subject to Terms of Use. Copyright(c) 2022 [employer]. The [employer]. All rights reserved. This information is not intended as a substitute for professional medical care. Always follow your healthcare professional's instructions. * Pt Handout (on AVS) - Brenna Mcfadden RN - 05/27/2023 12:27 PM EST [id number] Baclofen Oral Tablet Uses For muscle spasms. Instructions This medicine may be taken with or without food. Store at room temperature away from heat, light, and moisture. Do not keep in the bathroom. If you forget to take a dose [...] about all medicines taken. Include prescription and dcoo-ejj-jsszsun medicines, vitamins, and herbal medicines. Speak with your doctor or pharmacist before starting or stopping any medicine. Tell your doctor if symptoms do not get better or if they get worse. If you need to stop this medicine, your doctor may wish to gradually reduce the dosage before stopping. Keep all appointments for medical exams and tests while on this medicine. Cautions Tell your doctor and pharmacist if you ever had an allergic reaction to a medicine. Some patients taking this medicine have experienced serious side effects. Please speak with your doctor to understand the risks and benefits associated with this medicine. Do not use the medication any more than instructed. If possible, avoid using with alcohol, marijuana, or other medicines that can cause dizziness or drowsiness. These include allergy/cold products, muscle relaxers, sleep aids, and pain relievers. Your ability to stay alert or to react quickly may be impaired by this medicine. Do not drive or operate machinery until you know how this medicine will affect you. This medicine passes into breast milk. Ask [...] you experience these or other side effects. constipation dizziness or drowsiness headaches nausea and vomiting increased urinary frequency weakness Call your doctor or get medical help right away if you notice any of these more serious side effects: confusion depression or feeling sad hallucinations (unusual thoughts, seeing or hearing things that are not real) mood changes A few people may have an allergic reaction to this medicine. Symptoms can include difficulty breathing, skin rash, itching, swelling, or severe dizziness. If you notice any of these symptoms, seek medical help quickly. Extra Please speak with your doctor, nurse, or pharmacist if you have any questions about this medicine. [email or web address]/[email or web address]/fdbpem/7087 IMPORTANT NOTE: This document tells you briefly how to take your medicine, but it does not tell youall there is to know about it. Your doctor or pharmacist may give you other documents about your medicine. Please talk to them if you have any questions. Always follow their advice. There is a more complete description of this medicine available in Hungarian. Scan this code on your smartphone or tablet or use the web address below. You can also ask your pharmacist for a printout. If you have any questions, please ask your pharmacist. The display and use of this drug information is subject to Terms of Use. Copyright(c) 2022 [employer]. 0380-5990 The [employer]. All rights reserved. This information is not intended as a substitute for professional medical care. Always follow your healthcare professional's instructions. * Pt Handout (on AVS) - Brenna Mcfadden RN - 05/27/2023 12:27 PM EST Images from the original note were not included. [id number] Acetaminophen Oral Tablet Brands: Anacin AF, Cetafen, CounterAct Pain, Mapap, Panadol, Pharbetol, Ringl, Tactinal, Tycolene, Tylenol Uses This medicine is used for the following purposes: fever pain Instructions This medicine may be taken with or without food. Store at room temperature away from heat, light, and moisture. Do not keep in the bathroom. Drug interactions can change how medicines work or increase risk for side effects. Tell your healthcare providers about all medicines taken. Include prescription and kexs-jyx-zxlwfsj medicines, vitamins, and herbal medicines. Speak with your doctor or pharmacist before starting or stopping any medicine. Tell your doctor if symptoms do not get better or if they get worse. You may stop using this medicine if you no longer have symptoms. Cautions Tell your doctor and pharmacist if you ever had an allergic reaction to a medicine. Do not use the medication any more than instructed. Do not drink beverages with alcohol while on this medicine. Tell the doctor or pharmacist if you are , planning to be , or . This medicine contains acetaminophen. There are many medicines with acetaminophen. Taking these medicines together can cause you to get too much acetaminophen. This can cause serious liver problems. Look carefully on the package of all your medicines to see if acetaminophen is included. Ask your pha rmacist which medicines you can take safely. Side Effects If you have any of the following side effects, you may be getting too much medicine. Please contactyour doctor to let them know about these side effects. signs of liver damage (such as yellowing of eye or skin, dark urine, or unusual tiredness) This medicine usually has no side effects. A few people may have an allergic reaction to this medicine. Symptoms can include difficulty breathing, skin rash, itching, swelling, or severe dizziness. If you notice any of these symptoms, seek medical help quickly. Extra Please speak with your doctor, nurse, or pharmacist if you have any questions about this medicine. [email or web address]/[email or web address]/fdbpem/9 IMPORTANT NOTE: This document tells you briefly how to take your medicine, but it does not tell youall there is to know about it. Your doctor or pharmacist may give you other documents about your medicine. Please talk to them if you have any questions. Always follow their advice. There is a more complete description of this medicine available in Hungarian. Scan this code on your smartphone or tablet or use the web address below. You can also ask your pharmacist for a printout. If you have any questions, please ask your pharmacist. The display and use of this drug information is subject to Terms of Use. Copyright(c) 2022 [employer]. 3666-9778 The [employer]. All rights reserved. This information is not intended as a substitute for professional medical care. Always follow your healthcare professional's instructions. * Care Plan - Alicia Dueñas RN - 05/27/2023 5:38 AM EST Clinical Goal(s): Pt will report controlled pain this shift. (05/26/23 2300) Possible barriers to meeting goal(s)/advancing plan of care: chronic back pain, metastatic CA Stability of the patient: Moderately stable - low risk of patient condition declining or worsening Summary regarding today's goal(s): Met: pt did not report uncontrolled pain Recommendations: continue with current treatment plan, hourly rounding and PRN medication * Ancillary Progress Note - Dinah Brown Small Engine Trainer - 05/26/2023 1:04 PM EST CARE MANAGEMENT - ADULT TRANSITION NOTE [facility]-[address] [address] Name: Dedrick Peters Location: [facility] [id number] Date: 05/26/2023 Time: 1:04 PM Risk Stratification Risk Stratification Psycho Social / Medical Concerns Identified: Adjustment to illness/injury;Cognitive/Functional limitations (05/23/23 1022) Accessed [employer] to connect patients to social care resources: No (05/23/23 1022) OBRA or OPTIONS needed for placement: No (05/23/23 1022) Readmission Risk Score: 26.77 (05/26/23 1200) AM-PAC Score With Stairs : 18 (05/26/23 0846) Caregiver Information Patient Contacts Name Relation Home Work Mobile Soledad Peters Spouse [phone] Huma Hernández Adult Child [phone] Transition of Care Checklist Narrative: Pt reviewed in IDT meeting. MARCELA will be an additional day to 2. CM [facility] and[facility] an update on pt's MARCELA. [facility] is going to move pt's STO to Monday05/29/23. Anticipated Transportation at Discharge: family Patient/Family Expectations: Return home with Transition Planning Additional Considerations: Care Management will continue to monitor and assist with discharge planning needs * Care Plan - Elsy Ness RN - 05/26/2023 6:09 AM EST Clinical Goal(s): Pt will have BM this shift (05/25/23 194) Possible barriers to meeting goal(s)/advancing plan of care: constipation Stability of the patient: Moderately stable - low risk of patient condition declining or worsening Summary regarding today's goal(s): Not Met: Pt did not have a BM this shift Recommendations: Continue with plan of care * Care Plan - Rita Bynum RN - 05/25/2023 6:46 PM EST Clinical Goal(s): Pt will have a bowel movement this shift (05/25/23 0700) Possible barriers to meeting goal(s)/advancing plan of care: Acuity of illness Stability of the patient: Moderately stable - low risk of patient condition declining or worsening Summary regarding today's goal(s): Not Met: No bowel movement this shift Recommendations: Continue bowel regimen * Ancillary Progress Note - Radha Bustamante RN - 05/25/2023 3:22 PM EST IDT completed- patient to return home with home health services. * Ancillary Progress Note - Jacklyn Steiner OT - 05/25/2023 10:48 AM EST OT consult noted, but could not be completed this AM. Pt's care nurse advised OT evaluation be deferred. Will re-attempt as allowed by pt's tolerance and OT's schedule. * Ancillary Progress Note - Trey Marin PTA - 05/25/2023 10:00 AM EST PROGRESS NOTE - Physical Therapy [facility]-[address] [address] Name: Dedrick Peters Location: [facility] [id number] Date: 05/25/2023 Time: 1:03 PM Dedrick Peters is a/an 88 year old male. Patient Status: Inpatient Insurance: Payor: [employer] Plan: [place] 1 PART D - Product Type: *No Product type* Patient Seen: at bedside, nursing cleared patient for therapy Patient Identified By: Name, ID Band and Date Diagnosis: Gait dysfunction, pain, ileus, constipation, prostate cancer with bone mets (05/24/231434) Status of treatment: Treatment completed (05/25/23999) Orders: PT evaluation and treatment (05/24/231434) Weight Bearing Status: Weight bearing as tolerated (05/25/23999) Precautions: Safety;Falls;Oxygen (05/25/23999) Total Treatment Time--free text: 40 mins (05/25/23999) Subjective: "Im feeling ok. I still can't move my bowels though" Pain: No complaints of pain Transfers Sit-Stand: Supervision (05/25/23999) Stand-Sit: Supervision (05/25/23999) W/C-Bed/Mat: Supervision (05/25/23999) Ambulation: Distance ambulated (feet): 450 Assistive Device: Rolling walker Assist: Supervision Balance Sit (Static): Good (05/24/231434) Sit (Dynamic): Good (05/24/231434) Stand (Static): Fair (05/24/231434) Stand (Dynamic): Fair (05/24/231434) Patient and or Family Goal(s): to get well and to return home Topic of Education: Safety with mobility, Use of assistive device, and Fall prevention Method of Education: Verbal discussion and explanation provided to pt: verbalized understanding andor agreement of this information and demonstrated the exercise and or task Treatment Provided: Therapeutic Activities 15 minutes: transfer training toilet transfer training Gait Training 25 minutes: gait training with rolling walker Alarm Status Patient positioned in: Chair (05/25/23 1000) With: Call palomo in reach (05/25/23999) Patient Education Review of Precautions: Safety;Fall (05/25/23999) Safety Awareness: Patient verbalizes insight of current deficits;Patient demonstrates carryover of insight during functional tasks;Patient can communicate basic needs (05/25/23 1000) Preferred learning method: Combination (05/24/231434) Barriers to learning: Visual impairments;Hearing;Medical Status (blind left eye, limited vision right eye) (05/24/23 143) Assessment: Pt tolerated tx fair with no reported pain or SOB post tx session. Pt did report feeling fatigued post tx session. Pt was given SBA and VC's for walker placement and sequencing. Pt is slow and slightly unsteady, but displayed no LOB during GT bout. Pt was able to ambulate 3 laps with several standing rest breaks in the hallway. Pt was returned sitting up in the chair post tx session. Pt's spouse in the room t/o the tx session. No needs post tx session. Pt instructed to not get up without assistance. Deficits requiring P.T. treatment needs: Mobility;Balance (05/24/231434) Equipment needs: Rollator (already owns and uses) (05/24/231434) Plan: Continue with current treatment plan established on evaluation. AM PAC Score with Stairs: 18 * Care Plan - Shahla De Souza RN - 05/25/2023 5:08 AM EST Clinical Goal(s): pt will rate pain <7 this shift (05/24/232001) Possible barriers to meeting goal(s)/advancing plan of care: acuity of illness Stability of the patient: Moderately stable - low risk of patient condition declining or worsening Summary regarding today's goal(s): Met: pt rated pain 5/10 this shift. Pt got tylenol. Recommendations: keep call palomo within reach * Care Plan - Teresita Baker RN - 05/24/2023 7:37 PM EST Clinical Goal(s): Patient will have a BM this shift (05/24/23 0830) Possible barriers to meeting goal(s)/advancing plan of care: Acuity of illness Stability of the patient: Moderately stable - low risk of patient condition declining or worsening Summary regarding today's goal(s): Not Met: Patient had a small BM, that really wasn't much to count Recommendations: PRN bowel regimen * Ancillary Progress Note - Dinah Brown Small Engine Trainer - 05/24/2023 4:10 PM EST CM called to Barbara at [facility] re: referral. Per Barbara pt was declined d/t not having PT. CM called to [facility] re: referral. CM spoke to [facility] and pt was accepted for services for a [facility] 05/25/2023. CM reviewed that MARCELA is 05/26/2023. Annabelle questioning time of discharge. If pt is discharged prior to noon the nurse may be able to do a same day visit. CM reviewed that someone from the casemanagement team can call and give them an update tomorrow if that may be a possibility. * Care Plan - Shahla De Souza RN - 05/24/2023 6:36 AM EST Clinical Goal(s): rate pain <7 this shift (05/23/231950) Possible barriers to meeting goal(s)/advancing plan of care: acuity of illness Stability of the patient: Moderately stable - low risk of patient condition declining or worsening Summary regarding today's goal(s): Not Met: pt rated 10/10 pain this shift. Pt c/o back pain. Pt received morphine per order. Recommendations: keep call palomo within reach, admin pain meds as ordered * Ancillary Progress Note - Stephanie, Dinah, Small Engine Trainer - 05/23/2023 10:22 AM EST CARE MANAGEMENT - ADULT INITIAL SCREENING [address] [address] Name: Dedrick Peters Location: [facility] [id number] Date: 05/23/2023 Time: 2:30 PM Discussed patient with the interdisciplinary care team. This Telephone Solicitor Supervisor performed a chart review and met with pt and pt's daughter at bedside to complete admission screen and assessed needs for transition planning. The care tech role and services were explained and emotional support was provided. Chief Complaint: Vomiting Prior Living Arrangements What was your living situation prior to admission/observation?: Independently;With Spouse ([phone]) Living Quarters: House (05/23/23 102) Number of steps to enter living quarters:: 0 (05/23/23 102) Do you have serious difficulty walking or climbing stairs? (5 years old or older): Yes (05/21/23946) History of falling: No (05/23/23732) Prior Level of Functioning Describe the patient's ability prior to admission/observation to perform ADLs: Performs independently (05/21/23946) Patient uses assistive device: Yes (05/23/231021) If yes, choose:: Walker (05/23/231021) Caregiver Information Patient Contacts Name Relation Home Work Mobile Soledad Peters Spouse [phone] Huma Hernández Adult Child [phone] Pt came to the ED on 05/21/2023 with complaints of vomiting. Pt was admitted for uncontrolled pain.Pt has a PMH of hodgkin's disease, PMH, prostate cancer metastatic to bone, DM2, CHF, colorado's esophagus, SANJEEV, respiratory failure with hypoxia, COPD, TUNUNAK, poor vision. Pt does not have any consults. Pt is insured by [facility] [employer]. Pt triggered in the workque for a readmission risk score of 25% or greater. Pt lives with his spouse in a single story home with no steps to enter. Pt is independent with ADL's (pt's spouse does need to assist pt in drying off when showering and helps with putting shoes and socks on) and is independent with ambulation with a rw. Pt has a walk-in shower, rw, cane, BSC, oxygen from [employer] at 1.5 L to 2L, CPAP, and nebulizer. Pt's spouse provides pt's transportation. Pt doesn't have any current in-home services, but he would like HH services upon discharge. Pt denies any alcohol or illicit substance use. Pt is able to afford medications, food, and utilities. Pt plans to return home with spouse and HH services. Risk Stratification/Psychosocial/Care Gaps Risk Stratification Psycho Social / Medical Concerns Identified: Adjustment to illness/injury;Cognitive/Functional limitations (05/23/23 102) [facility] to [facility] patients to [facility] care resources: No (05/23/231021) OBRA or OPTIONS needed for placement: No (05/23/231021) Readmission Risk Score: 32.16 (05/23/23 1200) AM-PAC Score With Stairs : 19 (05/23/23 0733) Prior to Admission Services Services Prior to Admission PROMOTIONS SPECIALIST Services (Services received within the last 30 days with exception, Psych within last two years): Durable Medical Equipment (05/23/23 102) PROMOTIONS SPECIALIST Durable Medical Equipment (DME) in home: Cane;Walker Rolling;Bedside commode;Oxygen (name) - Comment;CPAP/BiPAP/Home Vent;Nebulizer (05/23/23 102) DME Name: [employer] (05/23/23 102) [place] Dept[employer] of Aging (PDA) Waiver Program: N/A (05/23/231021) PROMOTIONS SPECIALIST Transportation (Services received within the last 30 days): Family/Friends Personal Vehicle (05/23/23 102) Outpatient Telephone Solicitor Supervisor: Patient Care Team: Jayleen Montez RN as Police Chief (Registered Nurse) Patient/Family Expectations: Return home with HH services For further screening information, please refer to the Care Management flow document. * Ancillary Progress Note - Dedrick Jaimes, INFORMATION RESOURCE CONSULTANT - 05/22/2023 10:29 PM EST Pt. Refused cpap. machine on standby * Care Plan - Lori Graham RN - 05/22/2023 5:52 AM EST Clinical Goal(s): Pt will verbalize adequate pain control this shift (05/21/232004) Possible barriers to meeting goal(s)/advancing plan of care: acuity of illness Stability of the patient: Moderately stable - low risk of patient condition declining or worsening Summary regarding today's goal(s): Met: Pt verbalized adequate pain control this shift Recommendations: continue plan of care, hourly rounding, monitor labs and vs * Ancillary Progress Note - Merlyn Reeder, BRACER - 05/22/2023 3:31 AM EST Patient off at 0300 rounds. * Care Plan - Bk Castillo RN - 05/21/2023 6:52 PM EST Clinical Goal(s): Patient will verbalize controlled pain this shift (05/21/23948) Possible barriers to meeting goal(s)/advancing plan of care: acuity of illness Stability of the patient: Moderately unstable - medium risk of patient condition declining or worsening Summary regarding today's goal(s): Met: Patient tolerated small bites of dinner after being given compazine and toradol. Patient unable to have BM successfully despite SMOG enema. Patient is having improved flatus. Recommendations: Continue to encourage ambulation and assess pain/nausea levels * Medical Necessity - Chantell Rodriguez RN - 05/21/2023 8:54 AM EST AdmissionCare Guideline: General Observation, Observation Based on the indications selected for the patient, the bed status of Admit to Observation was determined to be MET The following indications were selected as present at the time of evaluation of the patient: - Clinical care (eg, testing, monitoring, or treatment) needed beyond the usual emergency department time frame (eg, 3 to 4 hours) - Clinical care needed is not appropriate for a lower level of care (ie, discharge to outpatient setting not appropriate). Patient has clinical condition for which observation care is needed, as indicated by 1 or more of the following: - - Gastroenterologic condition or finding (eg, suspected ileus or obstruction, fecal impaction, constipation, gastroparesis, appendicitis or other abdominal infection, peptic ulcer disease without suspected bleeding, hepatitis) Additional Information: Presents to the ED for evaluation of Vomiting. Severe back pain. A lot of nausea and vomiting today. Not able to keep food down. Generalized abdominal pain for days, and his abdomen is also distended. No improvement with tramadol. Morphine IVP x 1 NSS IV bolus Zofran PVP AdmissionCare documentation entered by: Chantell Rodriguez [facility] [employer], 27th edition, Copyright 2022 [facility] [email or web address] All Rights Reserved. [id number]:00 Solely for purpose of utilization review and payment; not a diagnostic tool * ED Acting Teacher Note - Demetri Romero RN - 05/21/2023 8:19 AM EST Patient tolerated PO lamberto west but states "isn't feeling much better." Called report to Kriss on 3B. * ED Acting Teacher Note - Laina Quinn RN - 05/21/2023 6:12 AM EST Pt's spo2 found to be 86% on RA. Pt's respirations do not appear to be labored and he denies feeling SOB. Provider aware. IVF bolus stopped and 2L O2 applied via NC. Pt's spo2 improved to 95%. 0645 - reports that pt "is supposed to wear 1-1.5L of oxygen at home." * ED Acting Teacher Note - Laina Quinn RN - 05/21/2023 5:37 AM EST Pt's IV in the R lower arm came out. Dressing applied to site by VEDA Bautista. Bleeding controlled.IVF bolus connected to PIV in R hand. * ED Acting Teacher Note - Laina Quinn RN - 05/21/2023 5:17 AM EST Pt here from home with c/o abd pain, back pain, n/v, and constipation. Reports that he has not had a BM for approx 1 week. Says that he has not been able to eat or drink d/t nausea. Says that he has not been able to keep anything down. Reports that he has diffuse abd pain. Abd is firm, distended, and rounded. Hypoactive bowel sounds in all quadrants. says that pt tried miralax without relief. Also reports that pt has prostate CA that has metastasized. Denies CP, fever/chills. Pt is AOx4, respirations even and unlabored, heart regular, lungs clear. Pt resting on stretcher with call palomo in reach. documented in this encounter Plan of Treatment Upcoming Encounters Date Type Department Care Team (Late st Contact Info) Description 06/02/2023 10:45 AM EST Imaging Radiology, [place] [address] [place] [id number] 06/07/2023 8:00 AM EST Office Visit Ophthalmology, [facility] [address] [place] [address] Toney Shafer, DO [address] [place] [address] 06/08/2023 1:30 PM EST Telemedicine Hematology/Oncology, [address] [address] Cayden Sandoval MD [address] [facility] [place] [address] 07/06/2023 12:40 PM EST Office Visit Podiatry [facility] [address] [place] [address] Felicita Copeland, DPM [address] [place] [address] 07/27/2023 12:40 PM EST Office Visit Gastroenterology, [facility] [address] [place] [phone] Trina Plaza DO [address] [place] [address] 08/03/2023 1:30 PM EST Office Visit Urology [place] [address] [facility] [place] [address] [place] [address] Ryan Cunningham MD [address] [facility] [address] [place] [address] 09/11/2023 2:00 PM EDT Appointment Radiology, [facility] [address] [place] [phone] 09/11/2023 2:30 PM EDT PulmDiagnostic [facility] [place] [address] [place] [address] [place], [address] [facility] [place] [address] 09/11/2023 3:00 PM EDT Office Visit Pulmonary Medicine [address] [place] [address] [place] [phone] Saul Moscoso MD [address] [place] [address] 10/25/2023 2:40 PM EDT Office Visit Family Practice [employer] [address] [facility] [place], [place] [address] Mirza Mcgee III, MD [address] [facility] [place], [place] [address] 05/02/2024 1:00 PM EST Office Visit Sleep Disorders, [facility] [address] [place] [address] Alesha John MD [address] [facility] [place] [address] Health Maintenance Due Date Last Done Comments Alpha-1 Antitrypsin 1953 Zoster Vaccines (1 of 2) 1955 Hepatitis B (1 of 3 - Risk 3-dose series) 1996 COVID-19 Vaccine (3 - Pfizer risk series) 09/27/2020 08/30/2020, 08/02/2020 Diabetic Foot Exam 12/08/2021 12/08/2020, 0 03/06/2020, 03/04/2019, Additional history exists [place]'s Esophagus Surveilance 05/21/2022 05/21/2019, 04/25/2018 DTaP,Tdap,and Td Vaccines (2 - Td or Tdap) 10/04/2022 10/04/2012, 05/30/2003 Diabetic Eye Exam 10/11/2022 10/11/2021, , 07/14/2021, Additional history exists *NEPHROLOGY REFERRAL DUE TO RESISTANT HTN 05/14/2023 HbA1c 10/14/2023 04/14/2023, 0508/2022, 06/10/2022, Additional history exists Albumin/Creatinine Ratio 10/27/2023 10/26/2022, 02/25 DXA Scan 11/03/2023 11/02/2021, 07/27, 04/11/2017, Additional history exists Depression Screening 02/03/2024 02/02/2023 CKD PHOS USE SMARTSET 25868 05/22/202404/27, 10/26/2022, 03/17/2022, Additional history exists O2 ASSESSMENT COMPLETED IN PAST YEAR FOR COPD 05/26/2024 05/27/2023 CKD HGB USE SMARTSET 49337 05/27/202405/27, 05/26/2023, 05/25/2023, Additional history exists Pneumococcal Vaccine: 65+ Years Completed 09/22/2015, 08/21/2001 VITAMIN D LEVEL ONCE IN A LIFETIME-USE SMARTSET# 00351 Completed 10/26/2022, 10/11/2021, 01/01/2019, Additional history exists Influenza Vaccine (FLU shot) Completed , 03/31/2022, 03/23/2021, Additional history exists GARDASIL-HPV IMMUNIZATION SERIES Aged Out No longer eligible based on patient's age to complete this topic MENINGOCOCCAL (MENACTRA/MENVEO) Aged Out No longer eligible based on patient's age to complete this topic documented as of this encounter Medical Devices Implanted Type Area Parachute Officer Device Identifier Shelf Expiration Date Model / Serial / Lot Femur Nexgn E Right - [id number] [place]planted:Q[place] 1 [place] 05[place]12/2008 [place] [facility] [place]: Knee [employer] 02/24/2018 [id number] / / [id number] Femur Nexgn E Left - [id number] Implanted:Qty: 1 on 11/19/2008 [place] [facility] [place]: Knee [employer] [id number] / / [id number] Sut Steel 6 M654g - [id number] Implanted:Qty: 6 on 07/11/2011 [place] [facility] N/A: Chest DO NOT USE 01/09/2016 / / [id number] [employer] Lens [id number] Implanted:Qty: 1 on 11/07/2013 at OR [facility] Right: Eye 06/25/2016 [id number] / [id number] / [id number] documented as of this encounter Procedures Procedure Name Priority Date/Time Associated Diagnosis Comments BASIC METABOLIC PANEL Routine 05/27/2023 7:12 AM EST CBC Routine 05/27/2023 7:12 AM EST XR ABDOMEN OBSTRUCT SERIES W CHEST 1 VIEW STAT 05/26/2023 12:57 PM EST BASIC METABOLIC PANEL Routine 05/26/2023 5:05 AM EST CBC Routine 05/26/2023 5:05 AM EST GLUCOSE METER, POINT OF CARE [place] 05/25/2023 4:50 PM EST GLUCOSE METER, POINT OF CARE [place] 05/25/2023 11:42 AM EST GLUCOSE METER, POINT OF CARE [place] 05/25/2023 7:53 AM EST BASIC METABOLIC PANEL STAT 05/25/2023 7:04 AM EST CBC STAT 05/25/2023 7:04 AM EST GLUCOSE METER, POINT OF CARE [place] 05/24/2023 9:19 PM EST GLUCOSE METER, POINT OF CARE [place] 05/24/2023 4:23 PM EST GLUCOSE METER, POINT OF CARE [place] 05/24/2023 11:11 AM EST GLUCOSE METER, POINT OF CARE [place] 05/24/2023 7:21 AM EST BASIC METABOLIC PANEL Routine 05/24/2023 6:24 AM EST CBC Routine 05/24/2023 6:24 AM EST GLUCOSE METER, POINT OF CARE [place] 05/23/2023 9:26 PM EST GLUCOSE METER, POINT OF CARE [place] 05/23/2023 4:31 PM EST GLUCOSE METER, POINT OF CARE [place] 05/23/2023 12:23 PM EST GLUCOSE METER, POINT OF CARE [place] 05/23/2023 7:21 AM EST BASIC METABOLIC PANEL Routine 05/23/2023 6:15 AM EST CBC Routine 05/23/2023 6:15 AM EST GLUCOSE METER, POINT OF CARE [facility] 05/22/2023 9:26 PM EST GLUCOSE METER, POINT OF CARE [place] 05/22/2023 4:29 PM EST GLUCOSE METER, POINT OF CARE [facility] 05/22/2023 11:21 AM EST GLUCOSE METER, POINT OF CARE [facility] 05/22/2023 7:31 AM EST COMPREHENSIVE METABOLIC PANEL Routine 05/22/2023 5:39 AM EST PHOSPHORUS Routine 05/22/2023 5:39 AM EST CBC Routine 05/22/2023 5:39 AM EST MAGNESIUM Routine 05/22/2023 5:39 AM EST GLUCOSE METER, POINT OF CARE [facility] 05/21/2023 9:09 PM EST GLUCOSE METER, POINT OF CARE [place] 05/21/2023 4:48 PM EST GLUCOSE METER, POINT OF CARE [place] 05/21/2023 12:[address] ABD/PELVIS WO IV/ORAL CONTRAST STAT 05/21/2023 5:28 AM EST ECG INTERPRET Routine 05/21/2023 4:54 AM EST DIFFERENTIAL, AUTOMATED STAT 05/21/2023 4:41 AM EST BLOOD GAS, VENOUS STAT 05/21/2023 4:4 1 AM EST HEPATIC FUNCTION PANEL STAT 4:41 AM EST BASIC METABOLIC PANEL STAT 05/21/2023 4:41 AM EST CBC STAT 05/21/2023 4:41 AM EST LIPASE STAT 05/21/2023 4:41 AM EST LACTATE STAT 05/21/2023 4:41 AM EST CULTURE, BLOOD STAT 05/21/2023 4:41 AM EST CULTURE, BLOOD STAT 05/21/2023 4:41 AM EST CBC STAT 05/21/2023 4:41 AM EST XR CHEST 1 VIEW STAT 05/21/2023 4:24 AM EST HC ECG TRACING ONLY STAT 05/21/2023 4 :23 AM EST URINALYSIS, REFLEX TO MICROSCOPIC STAT 05/21/2023 4:21 AM EST documented in this encounter Results * (ABNORMAL) BASIC METABOLIC PANEL (05/27/2023 7:12 AM EST) BUN 12 6 - 20 mg/dL 05/27/2023 7:50 AM EST [facility] Creatinine 0.8 0.6 - 1.2 mg/dL 05/27/2023 7:50 AM EST [facility] Estimated Glomerular Filtration Rate 86 >=60 mL/min 05/27/2023 7:50 AM EST [facility] Comment:eGFR is calculated b ased on the CKD-EPI 2020 equation Sodium 139 135 - 146 mmol/L 05/27/2023 7:50 AM EST [facility] Potassium 3.6 3.5 - 5.1 mmol/L 05/27/2023 7:50 AM EST [facility] Chloride 104 98 - 107 mmol/L 05/27/2023 7:50 AM EST LABORATORY [facility] CO2 23 22 - 32 mmol/L 05/27/2023 7:50 AM EST LABORATORY [facility] Anion Gap 12 7 - 15 mmol/L 05/27/2023 7:50 AM EST LABORATORY [facility] Glucose 112 70 - 120 mg/dL 05/27/2023 7:50 AM EST LABORATORY [facility] Calcium 8.1(L) 8.4 - 10.2 mg/dL 05/27/2023 7:50 AM EST LABORATORY [facility] Blood Venous blood specimen / Unknown Venipuncture / Unknown 05/27/2023 7:12 AM EST 05/27/2023 7:16 AM EST Kaden Baumann MD LAB BLOOD ORDERABLES LABORATORY [address] [address] * CBC (05/27/2023 7:12 AM EST) WBC 6.13 4.00 - 10.80 K/uL 05/27/2023 8:21 AM EST LABORATORY [facility] RBC 4.71 4.50 - 5.25 M/uL 05/27/2023 8:21 AM EST LABORATORY [facility] HGB 14.0 14.0 - 16.8 g/dL 05/27/2023 8:21 AM EST LABORATORY [facility] HCT 43.6 40.0 - 48.4 % 05/27/2023 8:21 AM EST LABORATORY [facility] MCV 92.6 82.0 - 99.5 fL 05/27/2023 8:21 AM EST LABORATORY [facility] MCH 29.7 27.0 - 34.0 pg 05/27/2023 8:21 AM EST LABORATORY [facility] MCHC 32.1 32.0 - 36.0 g/dL 05/27/2023 8:21 AM EST LABORATORY [facility] RDW 13.2 11.5 - 15.5 % 05/27/2023 8:21 AM EST LABORATORY [facility] PLT 183 140 - 400 K/uL 05/27/2023 8:21 AM EST LABORATORY [facility] MPV 11.2 6.6 - 11.1 fL 05/27/2023 8:21 AM EST LABORATORY [facility] nRBCs 0 <=0 /100 WBCs 05/27/2023 8:21 AM EST LABORATORY [facility] Blood Venous blood specimen / Unknown Venipuncture / Unknown 05/27/2023 7:12 AM EST 05/27/2023 7:16 AM EST Kaden Baumann MD LAB BLOOD ORDERABLES LABORATORY [address] [address] * XR ABDOMEN OBSTRUCT SERIES W CHEST 1 VIEW (05/26/2023 12:57 PM EST) Anatomical Region Laterality Modality Abdomen, Pelvis Digital Radiogra phy 05/26/2023 1:07 PM EST Impressions 05/26/2023 1:17 PM EST IMPRESSION: Nonspecific bowel gas pattern. Large amount of stool in the colon. THIS DOCUMENT HAS BEEN ELECTRONICALLY SIGNED BY RAINE PITT MD Narrative 05/26/2023 1:17 PM EST PROCEDURE INFORMATION: Exam: XR Complete Acute Abdomen Series Including Chest Exam date and time: 05/26/2023 1:07 PM Age: 88 years old Clinical indication: Other: Vomiting, last bm was 1 week ago; Additional info: Worsening abd distention and nausea and vomiting again today. TECHNIQUE: Imaging protocol: Radiologic exam. Complete acute abdomen series, including 2 or more views of the abdomen and a single view chest. COMPARISON: CT ABD/PELVIS WO IV/ORAL CONTRAST 05/21/2023 5:18 AM FINDINGS: Lungs: No air bronchograms or focal consolidation identified. Pleural spaces: Normal. No pleural effusions. No pneumothorax. Heart/Mediastinum: The heart is enlarged. Gastrointestinal tract: Scattered gas-filled loops of bowel. Moderate constipation. There is gas present distally in the colon. Intraperitoneal space: Normal. No free air. Vasculature: The vasculature demonstrates diffuse moderate atherosclerotic calcification. Bones/joints: There are sternal wires consistent with previous sternotomy incision. Soft tissues: Normal. Procedure Note Raine Pitt MD - 05/26/2023 PROCEDURE INFORMATION: Exam: XR Complete Acute Abdomen Series Including Chest Exam date and time: 05/26/2023 1:07 PM Age: 88 years old Clinical indication: Other: Vomiting, last bm was 1 week ago; Additionalinfo: Worsening abd distention and nausea and vomiting again today. TECHNIQUE: Imaging protocol: Radiologic exam. Complete acute abdomen series,including 2 or more views of the abdomen and a single view chest. COMPARISON: CT ABD/PELVIS WO IV/ORAL CONTRAST 05/21/2023 5:18 AM FINDINGS: Lungs: No air bronchograms or focal consolidation identified. Pleural spaces: Normal. No pleural effusions. No pneumothorax. Heart/Mediastinum: The heart is enlarged. Gastrointestinal tract: Scattered gas-filled loops of bowel. Moderate constipation. There is gas present distally in the colon. Intraperitoneal space: Normal. No free air. Vasculature: The vasculature demonstrates diffuse moderate atherosclerotic calcification. Bones/joints: There are sternal wires consistent with previous sternotomy incision. Soft tissues: Normal. IMPRESSION IMPRESSION: Nonspecific bowel gas pattern. Large amount of stool in the colon. THIS DOCUMENT HAS BEEN ELECTRONICALLY SIGNED BY RAINE PITT MD Kaden Baumann MD RADIOLOGY (RAD GENER AL) * BASIC METABOLIC PANEL (05/26/2023 5:05 AM EST) BUN 18 6 - 20 mg/dL 05/26/2023 6:30 AM EST [facility] Creatinine 1.1 0.6 - 1.2 mg/dL 05/26/2023 6:30 AM EST [facility] Estimated Glomerular Filtration Rate 66 >=60 mL/min 05/26/2023 6:30 AM EST [facility] Comment:eGFR is calculated b ased on the CKD-EPI 2020 equation Sodium 142 135 - 146 mmol/L 05/26/2023 6:30 AM EST [facility]ORY [facility] Potassium 3.8 3.5 - 5.1 mmol/L 05/26/2023 6:30 AM EST [facility] Chloride 105 98 - 107 mmol/L 05/26/2023 6:30 AM EST LAB[facility] CO2 27 22 - 32 mmol/L 05/26/2023 6:30 AM EST [facility] Anion Gap 10 7 - 15 mmol/L 05/26/2023 6:30 AM EST LAB[facility]ATORY [facility] Glucose 93 70 - 120 mg/dL 05/26/2023 6:30 AM EST LABORATORY [facility] Calcium 8.4 8.4 - 10.2 mg/dL 05/26/2023 6:30 AM EST LABORATORY [facility] Blood Venous blood specimen / Unknown Venipuncture / Unknown 05/26/2023 5:05 AM EST 05/26/2023 6:01 AM EST Kaden Baumann MD LAB BLOOD ORDERABLES LABORATORY [address] [address] * (ABNORMAL) CBC (05/26/2023 5:05 AM EST) WBC 5.95 4.00 - 10.80 K/uL 05/26/2023 6:12 AM EST LABORATORY [facility] RBC 4.63 4.50 - 5.25 M/uL 05/26/2023 6:12 AM EST LABORATORY [facility] HGB 13.9(L) 14.0 - 16.8 g/dL 05/26/2023 6:12 AM EST LABORATORY [facility] HCT 42.7 40.0 - 48.4 % 05/26/2023 6:12 AM EST LABORATORY [facility] MCV 92.2 82.0 - 99.5 fL 05/26/2023 6:12 AM EST LABORATORY [facility] MCH 30.0 27.0 - 34.0 pg 05/26/2023 6:12 AM EST LABORATORY [facility] MCHC 32.6 32.0 - 36.0 g/dL 05/26/2023 6:12 AM EST LABORATORY [facility] RDW 13.5 11.5 - 15.5 % 05/26/2023 6:12 AM EST LABORATORY [facility] PLT 184 140 - 400 K/uL 05/26/2023 6:12 AM EST LABORATORY [facility] MPV 10.8 6.6 - 11.1 fL 05/26/2023 6:12 AM EST LABORATORY [facility] nRBCs 0 <=0 /100 WBCs 05/26/2023 6:12 AM EST LABORATORY [facility] Blood Venous blood specimen / Unknown Venipuncture / Unknown 05/26/2023 5:05 AM EST 05/26/2023 6:01 AM EST Kaden Baumann MD LAB BLOOD ORDERABLES Performing Organization Address City/[facility]/ZIP Co de Phone Number LABORATORY [address] [address] * GLUCOSE METER, POINT OF CARE (05/25/2023 4:50 PM EST) Glucose Meter 111 70 - 120 mg/dL 05/25/2023 4:55 PM EST [facility] Blood Whole blood specimen / Unknown 05/25/2023 4:50 PM EST 05/25/2023 4:55 PM EST Kaden Baumann MD LAB POINT OF CARE TE ST DOCKED DEVICE UNSOLICITED RESULTS Performing Organization Address [facility] Phone Number [facility] [address] [place] [phone] * GLUCOSE METER, POINT OF CARE (05/25/2023 11:42 AM EST) Glucose Meter 107 70 - 120 mg/dL 05/25/2023 12:32 PM EST [facility] Blood Whole blood specimen / Unknown 05/25/2023 11:42 AM EST 05/25/2023 12:32 PM EST Kaden Baumann MD LAB POINT OF CARE TE ST DOCKED DEVICE UNSOLICITED RESULTS Performing Organization Address [facility] Phone Number [facility] [address] [place] [phone] * GLUCOSE METER, POINT OF CARE (05/25/2023 7:53 AM EST) Glucose Meter 98 70 - 120 mg/dL 05/25/2023 8:20 AM EST [facility] Blood Whole blood specimen / Unknown 05/25/2023 7:53 AM EST 05/25/2023 8:20 AM EST Kaden Baumann MD LAB POINT OF CARE TE ST DOCKED DEVICE UNSOLICITED RESULTS [facility] [address] [facility] [place] [id number] * (ABNORMAL) BASIC METABOLIC PANEL (05/25/2023 7:04 AM EST) BUN 17 6 - 20 mg/dL 05/25/2023 7:31 AM EST LABORATORY GL Creatinine 0.9 0.6 - 1.2 mg/dL 05/25/2023 7:31 AM EST LAB[facility]ATORY [facility] Estimated Glomerular Filtration Rate 79 >=60 mL/min 05/25/2023 7:31 AM EST LAB[facility]ORY [facility] Comment:eGFR is calculated b ased on the CKD-EPI 2020 equation Sodium 141 135 - 146 mmol/L 05/25/2023 7:31 AM EST LABORATORY GL Potassium 3.4(L) 3.5 - 5.1 mmol/L 05/25/2023 7:31 AM EST [facility] Chloride 103 98 - 107 mmol/L 05/25/2023 7:31 AM EST LAB[facility] CO2 28 22 - 32 mmol/L 05/25/2023 7:31 AM EST LABORATORY GL Anion Gap 10 7 - 15 mmol/L 05/25/2023 7:31 AM EST LABORATORY GL Glucose 100 70 - 120 mg/dL 05/25/2023 7:31 AM EST LABORATORY GL Calcium 8.0(L) 8.4 - 10.2 mg/dL 05/25/2023 7:31 AM EST LABORATORY GL Blood Venous blood specimen / Unknown Venipuncture / Unknown 05/25/2023 7:04 AM EST 05/25/2023 7:13 AM EST Kaden Baumann MD LAB BLOOD ORDERABLES Performing Organization Address [facility]/ZIP Co de Phone Number LABORATORY GL [address] [facility] [place] [address] * CBC (05/25/2023 7:04 AM EST) WBC 5.85 4.00 - 10.80 K/uL 05/25/2023 8:07 AM EST LAB[facility] RBC 4.63 4.50 - 5.25 M/uL 05/25/2023 8:07 AM EST LABORATORY GL HGB 14.1 14.0 - 16.8 g/dL 05/25/2023 8:07 AM EST LAB[facility]ORY [facility] HCT 42.2 40.0 - 48.4 % 05/25/2023 8:07 AM EST LABORATORY GL MCV 91.1 82.0 - 99.5 fL 05/25/2023 8:07 AM EST LABORATORY GL MCH 30.5 27.0 - 34.0 pg 05/25/2023 8:07 AM EST LABORATORY GL MCHC 33.4 32.0 - 36.0 g/dL 05/25/2023 8:07 AM EST LABORATORY [facility] RDW 13.3 11.5 - 15.5 % 05/25/2023 8:07 AM EST LABORATORY GL PLT 175 140 - 400 K/uL 05/25/2023 8:07 AM EST LABORATORY [facility] MPV 11.3 6.6 - 11.1 fL 05/25/2023 8:07 AM EST LABORATORY [facility] nRBCs 0 <=0 /100 WBCs 05/25/2023 8:07 AM EST LABORATORY GL Blood Venous blood specimen / Unknown Venipuncture / Unknown 05/25/2023 7:04 AM EST 05/25/2023 7:13 AM EST Kaden Baumann MD LAB BLOOD ORDERABLES LABORATORY [address] [address] * GLUCOSE METER, POINT OF CARE (05/24/2023 9:19 PM EST) [facility] Glucose Meter 88 70 - 120 mg/dL 05/24/2023 9:27 PM EST [facility] Blood Whole blood specimen / Unknown 05/24/2023 9:19 PM EST 05/24/2023 9:27 PM EST Kaden Baumann MD LAB POINT OF CARE TE ST DOCKED DEVICE UNSOLICITED RESULTS [facility] [address] [place], [place] [address] [place] [address] * GLUCOSE METER, POINT OF CARE (05/24/2023 4:23 PM EST) Glucose Meter 119 70 - 120 mg/dL 05/24/2023 4:27 PM EST [facility] Blood Whole blood specimen / Unknown 05/24/2023 4:23 PM EST 05/24/2023 4:27 PM EST Kaden Baumann MD LAB POINT OF CARE TE ST DOCKED DEVICE UNSOLICITED RESULTS Performing Organization Address City/[facility]/ZIP Co de Phone Number [facility] [address] [place] [address] * (ABNORMAL) GLUCOSE METER, POINT OF CARE (05/24/2023 11:11 AM EST) Glucose Meter 143(H) 70 - 120 mg/dL 05/25/2023 8:56 AM EST [facility] Blood Whole blood specimen / Unknown 05/24/2023 11:11 AM EST 05/25/2023 8:56 AM EST Kaden Baumann MD LAB POINT OF CARE TE ST DOCKED DEVICE UNSOLICITED RESULTS Performing Organization Address City/[facility]/ZIP Co de Phone Number [facility] [address] [place] [address] * GLUCOSE METER, POINT OF CARE (05/24/2023 7:21 AM EST) Glucose Meter 98 70 - 120 mg/dL 05/24/2023 7:33 AM EST [facility] Blood Whole blood specimen / Unknown 05/24/2023 7:21 AM EST 05/24/2023 7:33 AM EST Kaden Baumann MD LAB POINT OF CARE TE ST DOCKED DEVICE UNSOLICITED RESULTS Performing Organization Address City/[facility]/ZIP Co de Phone Number [facility] [address] [place] [address] * (ABNORMAL) BASIC METABOLIC PANEL (05/24/2023 6:24 AM EST) BUN 19 6 - 20 mg/dL 05/24/2023 7:04 AM EST LABORATORY GL Creatinine 1.0 0.6 - 1.2 mg/dL 05/24/2023 7:04 AM EST LABORATORY GL Estimated Glomerular Filtration Rate 72 >=60 mL/min 05/24/2023 7:04 AM EST LABORATORY GL Comment:eGFR is calculated b ased on the CKD-EPI 2020 equation Sodium 139 135 - 146 mmol/L 05/24/2023 7:04 AM EST LABORATORY GL Potassium 3.2(L) 3.5 - 5.1 mmol/L 05/24/2023 7:04 AM EST LABORATORY GL Chloride 100 98 - 107 mmol/L 05/24/2023 7:04 AM EST LABORATORY GL CO2 27 22 - 32 mmol/L 05/24/2023 7:04 AM EST LABORATORY GL Anion Gap 12 7 - 15 mmol/L 05/24/2023 7:04 AM EST LABORATORY GL Glucose 107 70 - 120 mg/dL 05/24/2023 7:04 AM EST LABORATORY GL Calcium 7.9(L) 8.4 - 10.2 mg/dL 05/24/2023 7:04 AM EST LABORATORY GL Blood Venous blood specimen / Unknown Venipuncture / Unknown 05/24/2023 6:24 AM EST 05/24/2023 6:41 AM EST Bismark Stewart MD LAB BLOOD ORDERABLES Performing Organization Address City/State/[facility] Co de Phone Number LABORATORY [address] [address] * (ABNORMAL) CBC (05/24/2023 6:24 AM EST) WBC 5.93 4.00 - 10.80 K/uL 05/24/2023 7:26 AM EST LABORATORY GL RBC 4.60 4.50 - 5.25 M/uL 05/24/2023 7:26 AM EST LABORATORY GL HGB 13.9(L) 14.0 - 16.8 g/dL 05/24/2023 7:26 AM EST LABORATORY GL HCT 41.5 40.0 - 48.4 % 05/24/2023 7:26 AM EST LABORATORY [facility] MCV 90.2 82.0 - 99.5 fL 05/24/2023 7:26 AM EST LABORATORY [facility] MCH 30.2 27.0 - 34.0 pg 05/24/2023 7:26 AM EST LABORATORY [facility] MCHC 33.5 32.0 - 36.0 g/dL 05/24/2023 7:26 AM EST LABORATORY [facility] RDW 13.4 11.5 - 15.5 % 05/24/2023 7:26 AM EST LABORATORY [facility] PLT 166 140 - 400 K/uL 05/24/2023 7:26 AM EST LABORATORY [facility] MPV 11.2 6.6 - 11.1 fL 05/24/2023 7:26 AM EST LABORATORY [facility] nRBCs 0 <=0 /100 WBCs 05/24/2023 7:26 AM EST LABORATORY [facility] Blood Venous blood specimen / Unknown Venipuncture / Unknown 05/24/2023 6:24 AM EST 05/24/2023 6:41 AM EST Bismark Stewart MD LAB BLOOD ORDERABLES Performing Organization Address City/[facility]/ZIP Co de Phone Number LABORATORY [address] [address] * (ABNORMAL) GLUCOSE METER, POINT OF CARE (05/23/2023 9:26 PM EST) [facility] Glucose Meter 129(H) 70 - 120 mg/dL 05/23/2023 9:55 PM EST [facility] Blood Whole blood specimen / Unknown 05/23/2023 9:26 PM EST 05/23/2023 9:54 PM EST Kaden Baumann MD LAB POINT OF CARE TE ST DOCKED DEVICE UNSOLICITED RESULTS [facility] [address] [place] [phone] * (ABNORMAL) GLUCOSE METER, POINT OF CARE (05/23/2023 4:31 PM EST) Glucose Meter 126(H) 70 - 120 mg/dL 05/23/2023 4:39 PM EST [facility] Blood Whole blood specimen / Unknown 05/23/2023 4:31 PM EST 05/23/2023 4:39 PM EST Bismark Stewart MD LAB POINT OF CARE TE ST DOCKED DEVICE UNSOLICITED RESULTS Performing Organization Address [facility] Co de Phone Number [facility] [address] [place] [address] * GLUCOSE METER, POINT OF CARE (05/23/2023 12:23 PM EST) Glucose Meter 101 70 - 120 mg/dL 05/23/2023 12:34 PM EST [facility] Blood Whole blood specimen / Unknown 05/23/2023 12:23 PM EST 05/23/2023 12:34 PM EST Bismark Stewart MD LAB POINT OF CARE TE ST DOCKED DEVICE UNSOLICITED RESULTS Performing Organization Address [facility] Phone Number [facility] [address] [place] [address] * GLUCOSE METER, POINT OF CARE (05/23/2023 7:21 AM EST) Glucose Meter 105 70 - 120 mg/dL 05/23/2023 7:34 AM EST [facility] Blood Whole blood specimen / Unknown 05/23/2023 7:21 AM EST 05/23/2023 7:34 AM EST Bismark Stewart MD LAB POINT OF CARE TE ST DOCKED DEVICE UNSOLICITED RESULTS Performing Organization Address [facility] de Phone Number [facility] [address] [place] [address] * (ABNORMAL) BASIC METABOLIC PANEL (05/23/2023 6:15 AM EST) BUN 15 6 - 20 mg/dL 05/23/2023 7:02 AM EST LAB[facility]ATORY [facility] Creatinine 0.9 0.6 - 1.2 mg/dL 05/23/2023 7:02 AM EST LAB[facility]ATORY [facility] Estimated Glomerular Filtration Rate 83 >=60 mL/min 05/23/2023 7:02 AM EST LAB[facility]ATORY [facility] Comment:eGFR is calculated b ased on the CKD-EPI 2020 equation Sodium 138 135 - 146 mmol/L 05/23/2023 7:02 AM EST LAB[facility]ATORY [facility] Potassium 3.2(L) 3.5 - 5.1 mmol/L 05/23/2023 7:02 AM EST LAB[facility]ATORY [facility] Chloride 100 98 - 107 mmol/L 05/23/2023 7:02 AM EST LAB[facility]ATORY [facility] CO2 25 22 - 32 mmol/L 05/23/2023 7:02 AM EST LAB[facility]ATORY [facility] Anion Gap 13 7 - 15 mmol/L 05/23/2023 7:02 AM EST LAB[facility]ATORY [facility] Glucose 98 70 - 120 mg/dL 05/23/2023 7:02 AM EST LABORATORY GL Calcium 7.7(L) 8.4 - 10.2 mg/dL 05/23/2023 7:02 AM EST LABORATORY GL Blood Venous blood specimen / Unknown Venipuncture / Unknown 05/23/2023 6:15 AM EST 05/23/2023 6:40 AM EST Bismark Stewart MD LAB BLOOD ORDERABLES LABORATORY [address] [address] * (ABNORMAL) CBC (05/23/2023 6:15 AM EST) WBC 5.55 4.00 - 10.80 K/uL 05/23/2023 6:45 AM EST LABORATORY GL RBC 4.53 4.50 - 5.25 M/uL 05/23/2023 6:45 AM EST LABORATORY [facility] HGB 13.3(L) 14.0 - 16.8 g/dL 05/23/2023 6:45 AM EST LAB[facility]ATORY [facility] HCT 40.7 40.0 - 48.4 % 05/23/2023 6:45 AM EST LAB[facility]ATORY [facility] MCV 89.8 82.0 - 99.5 fL 05/23/2023 6:45 AM EST LABORATORY [facility] MCH 29.4 27.0 - 34.0 pg 05/23/2023 6:45 AM EST LABORATORY [facility] MCHC 32.7 32.0 - 36.0 g/dL 05/23/2023 6:45 AM EST LABORATORY [facility] RDW 13.2 11.5 - 15.5 % 05/23/2023 6:45 AM EST LABORATORY [facility] PLT 148 140 - 400 K/uL 05/23/2023 6:45 AM EST LABORATORY [facility] MPV 11.0 6.6 - 11.1 fL 05/23/2023 6:45 AM EST LABORATORY [facility] nRBCs 0 <=0 /100 WBCs 05/23/2023 6:45 AM EST LABORATORY [facility] Blood Venous blood specimen / Unknown Venipuncture / Unknown 05/23/2023 6:15 AM EST 05/23/2023 6:41 AM EST Bismark Stewart MD LAB BLOOD ORDERABLES LABORATORY [address] [address] * (ABNORMAL) GLUCOSE METER, POINT OF CARE (05/22/2023 9:26 PM EST) Glucose Meter 124(H) 70 - 120 mg/dL 05/22/2023 10:55 PM [facility] LAB[facility]ORY Blood Whole blood specimen / Unknown 05/22/2023 9:26 PM EST 05/22/2023 10:55 PM EST Bismark Stewart MD LAB POINT OF CARE TE ST DOCKED DEVICE UNSOLICITED RESULTS Performing Organization Address City/[facility]/ZIP Co de Phone Number [facility] [address] [place] [phone] * (ABNORMAL) GLUCOSE METER, POINT OF CARE (05/22/2023 4:29 PM EST) Glucose Meter 134(H) 70 - 120 mg/dL 05/22/2023 6:10 PM [facility] LAB[facility]ORY Blood Whole blood specimen / Unknown 05/22/2023 4:29 PM EST 05/22/2023 6:10 PM EST Bismark Stewart MD LAB POINT OF CARE TE ST DOCKED DEVICE UNSOLICITED RESULTS Performing Organization Address [facility] Co de Phone Number [facility] [address] [place] [address] * (ABNORMAL) GLUCOSE METER, POINT OF CARE (05/22/2023 11:21 AM EST) Glucose Meter 124(H) 70 - 120 mg/dL 05/22/2023 11:31 AM EST [facility] Blood Whole blood specimen / Unknown 05/22/2023 11:21 AM EST 05/22/2023 11:31 AM EST Bismark Stewart MD LAB POINT OF CARE TE ST DOCKED DEVICE UNSOLICITED RESULTS Performing Organization Address [facility] Co de Phone Number [facility] [address] [facility] [address] * GLUCOSE METER, POINT OF CARE (05/22/2023 7:31 AM EST) Glucose Meter 120 70 - 120 mg/dL 05/22/2023 8:16 AM EST [facility] Blood Whole blood specimen / Unknown 05/22/2023 7:31 AM EST 05/22/2023 8:16 AM EST Bismark Stewart MD LAB POINT OF CARE TE ST DOCKED DEVICE UNSOLICITED RESULTS Performing Organization Address City/[facility] Co de Phone Number [facility] [address] [facility] Hospital[facility] [place] [address] * PHOSPHORUS (05/22/2023 5:39 AM EST) Phosphorus 2.9 2.5 - 4.8 mg/dL 05/22/2023 6:59 AM EST LABORATORY [facility] Blood Venous blood specimen / Unknown Venipuncture / Unknown 05/22/2023 5:39 AM EST 05/22/2023 6:25 AM EST Ana Ahmadi AFTAB LAB BLOOD ORDERABLES Performing Organization Address City/[facility]/ZIP Co de Phone Number LABORATORY [address] [id number] * MAGNESIUM (05/22/2023 5:39 AM EST) Magnesium 2.4 1.5 - 2.6 mg/dL 05/22/2023 6:59 AM EST LABORATORY [facility] Blood Venous blood specimen / Unknown Venipuncture / Unknown 05/22/2023 5:39 AM EST 05/22/2023 6:25 AM EST Ana Ahmadi AFTAB LAB BLOOD ORDERABLES Performing Organization Address [facility] de Phone Number LABORATORY [address] [address] * CBC (05/22/2023 5:39 AM EST) WBC 6.30 4.00 - 10.80 K/uL 05/22/2023 6:32 AM EST LABORATORY [facility] RBC 4.68 4.50 - 5.25 M/uL 05/22/2023 6:32 AM EST LABORATORY [facility] HGB 14.5 14.0 - 16.8 g/dL 05/22/2023 6:32 AM EST LABORATORY [facility] HCT 42.6 40.0 - 48.4 % 05/22/2023 6:32 AM EST LABORATORY [facility] MCV 91.0 82.0 - 99.5 fL 05/22/2023 6:32 AM EST LABORATORY [facility] MCH 31.0 27.0 - 34.0 pg 05/22/2023 6:32 AM EST LABORATORY [facility] MCHC 34.0 32.0 - 36.0 g/dL 05/22/2023 6:32 AM EST LABORATORY [facility] RDW 13.5 11.5 - 15.5 % 05/22/2023 6:32 AM EST LABORATORY [facility] PLT 195 140 - 400 K/uL 05/22/2023 6:32 AM EST LABORATORY [facility] MPV 11.5 6.6 - 11.1 fL 05/22/2023 6:32 AM EST LABORATORY [facility] nRBCs 0 <=0 /100 WBCs 05/22/2023 6:32 AM EST LAB[facility]ATORY [facility] Blood Venous blood specimen / Unknown Venipuncture / Unknown 05/22/2023 5:39 AM EST 05/22/2023 6:25 AM EST Ana Jones Galdino UGALDE LAB BLOOD ORDERABLES LABORATORY [facility] [address] [place] [address] * (ABNORMAL) COMPREHENSIVE METABOLIC PANEL (05/22/2023 5:39 AM EST) BUN 12 6 - 20 mg/dL 05/22/2023 6:59 AM EST LABORATORY [facility] Creatinine 0.8 0.6 - 1.2 mg/dL 05/22/2023 6:59 AM EST LABORATORY [facility] Estimated Glomerular Filtration Rate 86 >=60 mL/min 05/22/2023 6:59 AM EST LABORATORY [facility] Comment:eGFR is calculated b ased on the CKD-EPI 2020 equation Sodium 135 135 - 146 mmol/L 05/22/2023 6:59 AM EST LABORATORY [facility] Potassium 05/22/2023 6:59 AM EST LABORATORY [facility] Comment:Specimen too hemolyz ed. Reorder if needed. Chloride 100 98 - 107 mmol/L 05/22/2023 6:59 AM EST LABORATORY [facility] CO2 22 22 - 32 mmol/L 05/22/2023 6:59 AM EST LABORATORY [facility] Anion Gap 13 7 - 15 mmol/L 05/22/2023 6:59 AM EST LAB[facility]ATORY [facility] Glucose 117 70 - 120 mg/dL 05/22/2023 6:59 AM EST LABORATORY [facility] Albumin 3.6(L) 3.8 - 5.0 g/dL 05/22/2023 6:59 AM EST LABORATORY [facility] AST 05/22/2023 6:59 AM EST LABORATORY [facility] Comment:Specimen too hemolyz ed. Reorder if needed. Alkaline Phosphatase 107 35 - 130 U/L 05/22/2023 6:59 AM EST LABORATORY [facility] Comment:Result may be falsel y elevated due to hemolysis. Bilirubin, Total 0.9 <=1.2 mg/dL 05/22/2023 6:59 AM EST LABORATORY [facility] Calcium 8.1(L) 8.4 - 10.2 mg/dL 05/22/2023 6:59 AM EST LABORATORY [facility] Protein 6.9 6.0 - 8.3 g/dL 05/22/2023 6:59 AM EST LABORATORY [facility] ALT 23 10 - 50 U/L 05/22/2023 6:59 AM EST LABORATORY [facility] Comment:Result may be falsel y elevated due to hemolysis. Blood Venous blood specimen / Unknown Venipuncture / Unknown 05/22/2023 5:39 AM EST 05/22/2023 6:25 AM EST Ana UGALDE LAB BLOOD ORDERABLES Performing Organization Address [facility] Co de Phone Number LABORATORY [facility] [address] [place] [address] * (ABNORMAL) GLUCOSE METER, POINT OF CARE (05/21/2023 9:09 PM EST) Glucose Meter 121(H) 70 - 120 mg/dL 05/22/2023 6:40 AM EST [facility] Blood Whole blood specimen / Unknown 05/21/2023 9:09 PM EST 05/22/2023 6:40 AM EST Augustina Grion MD LAB POINT OF CARE TEST DOCKED DEVICE UNSOLICITED RESULTS Performing Organization Address City/[facility]/ZIP Co de Phone Number [facility] [address] [place] [address] * (ABNORMAL) GLUCOSE METER, POINT OF CARE (05/21/2023 4:48 PM EST) Glucose Meter 122(H) 70 - 120 mg/dL 05/21/2023 5:03 PM EST [facility] Blood Whole blood specimen / Unknown 05/21/2023 4:48 PM EST 05/21/2023 5:03 PM EST Augustina Giron MD LAB POINT OF CARE TEST DOCKED DEVICE UNSOLICITED RESULTS Performing Organization Address [facility] Co de Phone Number [facility] [address] [place] [address] * (ABNORMAL) GLUCOSE METER, POINT OF CARE (05/21/2023 12:22 PM EST) Glucose Meter 126(H) 70 - 120 mg/dL 05/21/2023 12:55 PM EST [facility] Blood Whole blood specimen / Unknown 05/21/2023 12:22 PM EST 05/21/2023 12:55 PM EST Augustina Giron MD LAB POINT OF CARE TEST DOCKED DEVICE UNSOLICITED RESULTS Performing Organization Address [facility] de Phone Number [facility] [address] [place] [address] * CT ABD/PELVIS WO IV/ORAL CONTRAST (05/21/2023 5:28 AM EST) Anatomical Region Laterality Modality Body, Abdomen, Pelvis Computed T omography 05/21/2023 5:18 AM EST Impressions 05/21/2023 7:04 AM EST IMPRESSION: 1. Prominent fecal debris throughout the proximal and mid colon. 2. No mechanical obstruction. 3. Epigastric peritoneal soft tissue mass most likely metastatic lesion, unchanged from most recent study and 02/03/2022. 4. Hepatic hypodensities concerning for metastatic disease. 5. Stable osseous structures. 6. Enlarged prostate gland. THIS DOCUMENT HAS BEEN ELECTRONICALLY SIGNED BY ANNETTE MELISSA DO Narrative 05/21/2023 7:04 AM EST PROCEDURE INFORMATION: Exam: CT Abdomen And Pelvis Without Contrast Exam date and time: 05/21/2023 5:18 AM Age: 88 years old Clinical indication: Abdominal pain; Generalized; Additional info: Severe abdominal pain, distention, vomiting, no bowel movement for a week. Recent diagnosis of liver lesions, history of prostate cancer TECHNIQUE: Imaging protocol: Computed tomography of the abdomen and pelvis without contrast. Total images: 2 Radiation optimization: All CT scans at this facility use at least one of these dose optimization techniques: automated exposure control; mA and/or kV adjustment per patient size (includes targeted exams where dose is matched to clinical indication); or iterative reconstruction. REPORTING DATA: Count of CT and Cardiac NM exams in prior 12 months: This patient has received [address] and 0 known cardiac nuclear medicine studies in the 12 months prior to the current study. COMPARISON: CT CHEST W CONTRAST 05/09/2023 1:05 PM FINDINGS: Lungs: Calcific pleural plaque in the right lung base unchanged. Emphysematous and fibrotic changes in the lung bases appear similar to 05/09/2023. Diaphragm: Small volume hiatal hernia. Unchanged. Liver: Hypodense nodules scattered throughout the liver are better seen on enhance study 05/09/2023. Splenic capsular calcification again noted along the anterolateral margin unchanged. Gallbladder and bile ducts: Normal. No calcified stones. No ductal dilation. Pancreas: Normal. No ductal dilation. Spleen: See "Liver" finding. Adrenal glands: Normal. No mass. Kidneys and ureters: Normal. No hydronephrosis. Stomach and bowel: Prominent fecal pattern and BS in the colon. No mechanical obstruction. Sigmoid diverticulosis with no acute diverticular inflammation. Appendix: No evidence of appendicitis. Intraperitoneal space: 3.3 cm soft tissue mass in the epigastric region not significantly changed from 05/09/2023 concerning for metastatic focus. Vasculature: Atherosclerotic tortuous thoracic aorta. No aneurysm. Lymph nodes: Linear density adjacent to the origin of the celiac trunk to the left of midline is noted with adjacent infiltration of retroperitoneal adipose tissue, unchanged most likely retracted lymph node. Urinary bladder: Unremarkable as visualized. Reproductive: Stable appearance of the prostate gland. Bones/joints: Small sclerotic lesion in the right femoral head, unchanged. Osseous demineralization and degenerative changes. Soft tissues: Unremarkable. Procedure Note Annette Melissa DO - 05/21/2023 PROCEDURE INFORMATION: Exam: CT Abdomen And Pelvis Without Contrast Exam date and time: 05/21/2023 5:18 AM Age: 88 years old Clinical indication: Abdominal pain; Generalized; Additional info: Severe abdominal pain, distention, vomiting, no bowel movement for a week. Recent diagnosis of liver lesions, history of prostate cancer TECHNIQUE: Imaging protocol: Computed tomography of the abdomen and pelvis without contrast. Total images: 2 Radiation optimization: All CT scans at this facility use at least one ofthese dose optimization techniques: automated exposure control; mA and/or kV adjustment per patient size (includes targeted exams where dose is matchedto clinical indication); or iterative reconstruction. REPORTING DATA: Count of CT and Cardiac NM exams in prior 12 months: This patient hasreceived [address] and 0 known cardiac nuclear medicine studies in the 12 monthsprior to the current study. COMPARISON: CT CHEST W CONTRAST 05/09/2023 1:05 PM FINDINGS: Lungs: Calcific pleural plaque in the right lung base unchanged.Emphysematous and fibrotic changes in the lung bases appear similar to 05/09/2023. Diaphragm: Small volume hiatal hernia. Unchanged. Liver: Hypodense nodules scattered throughout the liver are better seen on enhance study 05/09/2023. Splenic capsular calcification again noted alongthe anterolateral margin unchanged. Gallbladder and bile ducts: Normal. No calcified stones. No ductaldilation. Pancreas: Normal. No ductal dilation. Spleen: See "Liver" finding. Adrenal glands: Normal. No mass. Kidneys and ureters: Normal. No hydronephrosis. Stomach and bowel: Prominent fecal pattern and BS in the colon. Nomechanical obstruction. Sigmoid diverticulosis with no acute diverticularinflammation. Appendix: No evidence of appendicitis. Intraperitoneal space: 3.3 cm soft tissue mass in the epigastric regionnot significantly changed from 05/09/2023 concerning for metastatic focus. Vasculature: Atherosclerotic tortuous thoracic aorta. No aneurysm. Lymph nodes: Linear density adjacent to the origin of the celiac trunk tothe left of midline is noted with adjacent infiltration of retroperitonealadipose tissue, unchanged most likely retracted lymph node. Urinary bladder: Unremarkable as visualized. Reproductive: Stable appearance of the prostate gland. Bones/joints: Small sclerotic lesion in the right femoral head, unchanged. Osseous demineralization and degenerative changes. Soft tissues: Unremarkable. IMPRESSION IMPRESSION: 1. Prominent fecal debris throughout the proximal and mid colon. 2. No mechanical obstruction. 3. Epigastric peritoneal soft tissue mass most likely metastatic lesion, unchanged from most recent study and 02/03/2022. 4. Hepatic hypodensities concerning for metastatic disease. 5. Stable osseous structures. 6. Enlarged prostate gland. THIS DOCUMENT HAS BEEN ELECTRONICALLY SIGNED BY ANNETTE MELISSA DO Brenna Elena MD RAD CT * ECG Interpret (05/21/2023 4:54 AM EST) Narrative Brenna Elena MD - 05/21/2023 4:54 AM EST Brenna Elena MD 05/21/2023 8:51 AM ECG Interpret Date/Time: 05/21/2023 4:54 AM Performed by: Brenna Elena MD Authorized by: Brenna Elena MD Previous ECG: Previous ECG: Compared to current Comments: Done at 04:23 shows normal sinus rhythm, rate 84, left axis deviation. Nonspecific intraventricular conduction delay.? LVH. Compared to prior EKG of 05/09/2023 done at 09:19, there is no significant change Brenna Elena MD PROCEDURE REPORT * (ABNORMAL) DIFFERENTIAL, AUTOMATED (05/21/2023 4:41 AM EST) WBC 6.57 4.00 - 10.80 K/uL 05/21/2023 4:49 AM EST [facility] Neutrophils % 80.6(H) 40.0 - 75.0 % 05/21/2023 4:49 AM EST [facility] Lymphocytes % 7.6(L) 18.0 - 42.0 % 05/21/2023 4:49 AM EST [facility] Monocytes % 10.7 1.0 - 11.0 % 05/21/2023 4:49 AM EST [facility] Eosinophils % 0.6 0.0 - 6.0 % 05/21/2023 4:49 AM EST [facility] Basophils % 0.2 0.0 - 2.0 % 05/21/2023 4:49 AM EST [facility] Immature Granulocytes % 0.3 0.0 - 2.0 % 05/21/2023 4:49 AM EST [facility] Absolute Neutrophils 5.30 1.80 - 7.70 K/uL 05/21/2023 4:49 AM EST [facility] Absolute Lymphocytes 0.50(L) 1.00 - 4.80 K/ul 05/21/2023 4:49 AM EST [facility] Absolute Monocytes 0.70 0.00 - 1.10 K/uL 05/21/2023 4:49 AM EST [facility] Absolute Eosinophils 0.04 0.00 - 0.70 K/uL 05/21/2023 4:49 AM EST [facility] Absolute Basophils 0.01 0.00 - 0.20 K/uL 05/21/2023 4:49 AM EST LABORATORY GL Absolute Immature Granulocytes 0.02 0.00 - 0.20 K/uL 05/21/2023 4:49 AM EST LABORATORY GL Blood Venous blood specimen / Unknown Venipuncture / Unknown 05/21/2023 4:41 AM EST 05/21/2023 4:46 AM EST Brenna Elena MD LAB BLOOD ORDERAB LES LABORATORY [facility] [address] [place] [address] * CBC (05/21/2023 4:41 AM EST) WBC 6.57 4.00 - 10.80 K/uL 05/21/2023 4:49 AM EST LABORATORY [facility] RBC 4.95 4.50 - 5.25 M/uL 05/21/2023 4:49 AM EST LAB[facility] HGB 15.1 14.0 - 16.8 g/dL 05/21/2023 4:49 AM EST LABORATORY GL HCT 44.5 40.0 - 48.4 % 05/21/2023 4:49 AM EST LABORATORY [facility] MCV 89.9 82.0 - 99.5 fL 05/21/2023 4:49 AM EST LAB[facility] MCH 30.5 27.0 - 34.0 pg 05/21/2023 4:49 AM EST LAB[facility]ATORY [facility] MCHC 33.9 32.0 - 36.0 g/dL 05/21/2023 4:49 AM EST LABORATORY GL RDW 13.4 11.5 - 15.5 % 05/21/2023 4:49 AM EST LABORATORY GL PLT 151 140 - 400 K/uL 05/21/2023 4:49 AM EST LABORATORY GL MPV 11.3 6.6 - 11.1 fL 05/21/2023 4:49 AM EST LABORATORY GL nRBCs 0 <=0 /100 WBCs 05/21/2023 4:49 AM EST LAB[facility] GL Blood Venous blood specimen / Unknown Venipuncture / Unknown 05/21/2023 4:41 AM EST 05/21/2023 4:46 AM EST Brenna Elena MD LAB BLOOD ORDERAB LES [facility] [address] [place] [address] * (ABNORMAL) BLOOD GAS, VENOUS (05/21/2023 4:41 AM EST) Temperature 37.0 C 05/21/2023 4:57 AM EST [facility] pH, Venous 7.496(H) 7.320 - 7.430 units 05/21/2023 4:57 AM EST [facility] pCO2, Venous 34.5(L) 40.0 - 60.0 mmHg 05/21/2023 4:57 AM EST [facility] pO2, Venous 46.6 25.0 - 50.0 mmHg 05/21/2023 4:57 AM EST [facility] Base Excess, Venous 3.8(H) -2.0 - 2.0 mmol/L 05/21/2023 4:57 AM EST [facility] Hemoglobin, Whole Blood 15.4 14.0 - 16.8 g/dL 05/21/2023 4:57 AM EST [facility] Oxyhemoglobin, Venous 80.6 40.0 - 85.0 % total Hgb 05/21/2023 4:57 AM EST [facility] Carboxyhemoglobi n, Whole Blood 1.5 <=1.5 % total Hgb 05/21/2023 4:57 AM EST [facility] Comment:Smokers: 0-9.0 % Methemoglobin, Whole Blood 0.3 <=1.5 % total Hgb 05/21/2023 4:57 AM EST [facility] Reduced Hemoglobin, Venous 17.6 % total Hgb 05/21/2023 4:57 AM EST [facility] O2 Content, Venous 17.4 7.0 - 18.0 %vol 05/21/2023 4:57 AM EST [facility] Bicarbonate, Whole Blood 26.4 23.0 - 31.0 mmol/L 05/21/2023 4:57 AM EST [facility] Blood Venous blood specimen / Unknown Venipuncture / Unknown 05/21/2023 4:41 AM EST 05/21/2023 4:46 AM EST Brenna Elena MD LAB BLOOD ORDERAB LES Performing Organization Address City/[facility] Co de Phone Number LABORATORY [address] [address] * (ABNORMAL) HEPATIC FUNCTION PANEL (05/21/2023 4:41 AM EST) Albumin 3.7(L) 3.8 - 5.0 g/dL 05/21/2023 5:15 AM EST [facility] AST 51(H) 10 - 50 U/L 05/21/2023 5:15 AM EST [facility] Comment:Result may be falsel y elevated due to hemolysis. Alkaline Phosphatase 120 35 - 130 U/L 05/21/2023 5:15 AM EST [facility] ALT 24 10 - 50 U/L 05/21/2023 5:15 AM EST [facility] Bilirubin, Total 0.9 <=1.2 mg/dL 05/21/2023 5:15 AM EST [facility] Bilirubin, Direct 0.2 0.0 - 0.3 mg/dL 05/21/2023 5:15 AM EST [facility] Comment:Result may be falsel y decreased due to hemolysis. Protein 7.2 6.0 - 8.3 g/dL 05/21/2023 5:15 AM EST [facility] Blood Venous blood specimen / Unknown Venipuncture / Unknown 05/21/2023 4:41 AM EST 05/21/2023 4:46 AM EST Brenna Elena MD LAB BLOOD ORDERAB LES LABORATORY [address] [address] * LIPASE (05/21/2023 4:41 AM EST) Lipase 28 13 - 60 U/L 05/21/2023 5:15 AM EST [facility] Blood Venous blood specimen / Unknown Venipuncture / Unknown 05/21/2023 4:41 AM EST 05/21/2023 4:46 AM EST Brenna Elena MD LAB BLOOD ORDERAB LES Performing Organization Address City/[facility] Co de Phone Number LABORATORY [address] [address] * LACTATE (05/21/2023 4:41 AM EST) Lactate 1.7 0.4 - 2.0 mmol/L 05/21/2023 5:08 AM EST LABORATORY [facility] Blood Venous blood specimen / Unknown Venipuncture / Unknown 05/21/2023 4:41 AM EST 05/21/2023 4:46 AM EST Brenna Elena MD LAB BLOOD ORDERAB LES Performing Organization Address [facility] Co de Phone Number LABORATORY [address] [address] * CULTURE, BLOOD (05/21/2023 4:41 AM EST) Blood Culture Growth No growth 05/26/2023 5:01 AM EST LAB[facility]ATORY [facility] Blood Venous blood specimen / Unknown Venipuncture / Unknown 05/21/2023 4:41 AM EST 05/21/2023 4:46 AM EST Brenna Elena MD LAB MICRO - GENER AL ORDERABLES Performing Organization Address City/[facility] Co de Phone Number LABORATORY [address] [phone] * CULTURE, BLOOD (05/21/2023 4:41 AM EST) Blood Culture Growth No growth 05/26/2023 5:01 AM EST LABORATORY [facility] Blood Venous blood specimen / Unknown Venipuncture / Unknown 05/21/2023 4:41 AM EST 05/21/2023 4:46 AM EST Brenna Elena MD LAB MICRO - GENER AL ORDERABLES LABORATORY [address] [address] * BASIC METABOLIC PANEL (05/21/2023 4:41 AM EST) BUN 11 6 - 20 mg/dL 05/21/2023 5:15 AM EST [facility] Creatinine 0.8 0.6 - 1.2 mg/dL 05/21/2023 5:15 AM EST [facility] Estimated Glomerular Filtration Rate 86 >=60 mL/min 05/21/2023 5:15 AM EST [facility] Comment:eGFR is calculated b ased on the CKD-EPI 2020 equation Sodium 135 135 - 146 mmol/L 05/21/2023 5:15 AM EST [facility] Potassium 3.8 3.5 - 5.1 mmol/L 05/21/2023 5:15 AM EST [facility] Chloride 98 98 - 107 mmol/L 05/21/2023 5:15 AM EST [facility] CO2 23 22 - 32 mmol/L 05/21/2023 5:15 AM EST [facility] Anion Gap 14 7 - 15 mmol/L 05/21/2023 5:15 AM EST [facility] Glucose 117 70 - 120 mg/dL 05/21/2023 5:15 AM EST [facility] Calcium 8.7 8.4 - 10.2 mg/dL 05/21/2023 5:15 AM EST [facility] Blood Venous blood specimen / Unknown Venipuncture / Unknown 05/21/2023 4:41 AM EST 05/21/2023 4:46 AM EST Brenna Elena MD LAB BLOOD ORDERAB LES LABORATORY [address] [address] * XR CHEST 1 VIEW (05/21/2023 4:24 AM EST) Anatomical Region Laterality Modality Chest Digital Radiogra phy 05/21/2023 4:17 AM EST Impressions 05/21/2023 5:39 AM EST IMPRESSION: Stable peribronchial opacity in the right hilar region. THIS DOCUMENT HAS BEEN ELECTRONICALLY SIGNED BY GRISELDA KANG MD Narrative 05/21/2023 5:39 AM EST PROCEDURE INFORMATION: Exam: XR Chest Exam date and time: 05/21/2023 4:17 AM Age: 88 years old Clinical indication: Other: SOB and abdominal pain; Additional info: Severe abdominal pain TECHNIQUE: Imaging protocol: Radiologic exam of the chest. Views: 1 view. COMPARISON: CT CHEST W CONTRAST 05/09/2023 1:05 PM CXR 10/09/2022 FINDINGS: Lungs: Stable peribronchial opacity in the right hilar region, unchanged since 10/09/2022. No consolidation. Pleural spaces: Unremarkable. No pleural effusion. No pneumothorax. Heart/Mediastinum: Stable mild cardiomegaly. Bones/joints: Unremarkable. Procedure Note Griselda Kang MD - 05/21/2023 PROCEDURE INFORMATION: Exam: XR Chest Exam date and time: 05/21/2023 4:17 AM Age: 88 years old Clinical indication: Other: SOB and abdominal pain; Additional info:Severe abdominal pain TECHNIQUE: Imaging protocol: Radiologic exam of the chest. Views: 1 view. COMPARISON: CT CHEST W CONTRAST 05/09/2023 1:05 PM CXR 10/09/2022 FINDINGS: Lungs: Stable peribronchial opacity in the right hilar region, unchangedsince 10/09/2022. No consolidation. Pleural spaces: Unremarkable. No pleural effusion. No pneumothorax. Heart/Mediastinum: Stable mild cardiomegaly. Bones/joints: Unremarkable. IMPRESSION IMPRESSION: Stable peribronchial opacity in the right hilar region. THIS DOCUMENT HAS BEEN ELECTRONICALLY SIGNED BY GRISELDA KANG MD Brenna Elena MD RADIOLOGY (RAD GE NERAL) * EKG (05/21/2023 4:23 AM EST) 05/21/2023 4:23 AM EST Narrative Procedure Note Jacob Carmona DO - 05/21/2023 4:23 AM EST REASON FOR STUDY: SOB (shortness of breath) CONCLUSIONS: Normal sinus rhythm Left axis deviation Left ventricular hypertrophy with secondary QRS widening Abnormal ECG When compared with ECG of 09-MAY-2023 09:19, No significant change was found Ventricular Rate: 84 Atrial Rate: 84 PA Interval: 194 QRS Duration: 124 QT/QTc: 402/475 ms P-R-T [place]: 21 : -44 : 35 degrees Brenna Elena MD EKG [facility] * (ABNORMAL) URINALYSIS, REFLEX TO MICROSCOPIC (05/21/2023 4:21 AM EST) Color, Urine Yellow Light Yellow, Yellow, Dark Yellow 05/21/2023 4:31 AM EST [facility] Clarity, Urine Clear Clear 05/21/2023 4:31 AM EST [facility] Glucose, Urine Negative Negative mg/dL 05/21/2023 4:31 AM EST [facility] Bilirubin, Urine Negative Negative 05/21/2023 4:31 AM EST [facility] Ketone, Urine 40(A) Negative mg/dL 05/21/2023 4:31 AM EST [facility] Specific [place], Urine 1.011 1.003 - 1.030 05/21/2023 4:31 AM EST [facility] Blood, Urine Negative Negative 05/21/2023 4:31 AM EST [facility] pH, Urine 8.0(H) 5.0 - 7.5 Units 05/21/2023 4:31 AM EST [facility] Protein, Urine Trace(A) Negative mg/dL 05/21/2023 4:31 AM EST [facility] Urobilinogen, Urine 1.0 0.2, 1.0 mg/dL 05/21/2023 4:31 AM EST [facility] Nitrite, Urine Negative Negative 05/21/2023 4:31 AM EST [facility] Esterase, Urine Negative Negative 4:31 AM EST [facility] Comment, Urine 05/21/2023 4:31 AM EST [facility] Comment:Screen negative - Mi croscopic not performed. Urine Urine specimen obtained by clean catch procedure / Unknown Non-blood Collection / Unknown 05/21/2023 4:21 AM EST 05/21/2023 4:26 AM EST Brenna Elena MD LAB URINE ORDERAB LES LABORATORY [facility] [address] [place] [address] documented in this encounter Visit Diagnoses Diagnosis Uncontrolled pain- Primary Generalized pain Uncontrolled pain Generalized pain Nausea and vomiting, unspecified vomiting type Metastatic malignant neoplasm, unspecified site (HCC) Disease of lung Other diseases of lung, not elsewhere classified Chest pain Chest pain, unspecified Acute cough COPD exacerbation (HCC) Obstructive chronic bronchitis with exacerbation Intractable nausea and vomiting Persistent vomiting PMR (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) (HCC) Polymyalgia rheumatica History of Hodgkin's disease Personal history of Hodgkin's disease 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 ([facility]) Type II or unspecified type diabetes mellitus with neurological manifestations, not stated as uncontrolled Chronic diastolic heart failure (HCC) Chronic diastolic heart failure SANJEEV (obstructive sleep apnea) Obstructive sleep apnea (adult) (pediatric) Chronic respiratory failure with hypoxia (HCC) Chronic respiratory failure Hypertensive heart and kidney disease with chronic diastolic congestive heart failure and stage 3a chronic kidney disease ([facility]) COPD, group C, by GOLD 2017 classification ([facility]) Barretts esophagus [place]'s esophagus Degenerative lumbar spinal stenosis Spinal stenosis, lumbar region, without neurogenic claudication DNR (do not resuscitate) Do not resuscitate status Constipation Unspecified constipation [place] (hard of hearing) Unspecified hearing loss Poor vision Unspecified visual loss documented in this encounter Administered Medications Inactive Administered Medications - up to 3 most recent administrations Medication Order MAR Action Action Date Dose Rate Site Acetaminophen (Tylenol) tab 975 mg 975 mg, Oral, Q8H, First dose on 05/21/23 at 1400, Until Discontinued, Maximum of 4 grams (4000 mg) per day. Given 05/27/2023 7:04 AM EST 975 mg Given 05/26/2023 9:46 PM EST 975 mg Given 05/26/2023 1:18 PM EST 975 mg amLODIPine (Norvasc) tab 5 mg 5 mg, Oral, Daily(AM), First dose on 05/21/23 at 1345, Until Discontinued Given 05/27/2023 9:12 AM EST 5 mg Given 05/26/2023 8:47 AM EST 5 mg Given 05/25/2023 8:31 AM EST 5 mg aspirin enteric coated tab 81 mg 81 mg, Oral, Daily(AM), First dose on 05/21/23 at 1345, Until Discontinued, This med should NOT be Crushed or Chewed Given 05/27/2023 9:12 AM EST 81 mg Given 05/26/2023 8:46 AM EST 81 mg Given 05/25/2023 8:31 AM EST 81 mg Atenolol (Tenormin) tab 25 mg 25 mg, Oral, QPM-1999, First dose on 05/21/23 at 2000, Until Discontinued, Hold for HR less than 60 or SBP below 100 and notify service if dose is held Given 05/26/2023 8:23 PM EST 25 mg Given 05/25/2023 9:35 PM EST 25 mg Given 05/24/2023 9:00 PM EST 25 mg Atenolol (Tenormin) tab 50 mg 50 mg, Oral, Daily(AM), First dose on 05/21/23 at 1345, Until Discontinued, Hold for HR less than 60 or SBP below 100 and notify service if dose is held Given 05/27/2023 9:10 AM EST 50 mg Given 05/26/2023 8:46 AM EST 50 mg Given 05/25/2023 8:32 AM EST 50 mg atorvaSTATin (Lipitor) tab 20 mg 20 mg, Oral, Q1700, First dose on 05/21/23 at 1700, Until Discontinued Given 05/26/2023 5:48 PM EST 20 mg Given 05/25/2023 6:11 PM EST 20 mg Given 05/24/2023 5:15 PM EST 20 mg Baclofen (Lioresal) tab 5 mg 5 mg, Oral, BID (0700,1900), First dose on Mon05/24/23 at 1200, Until Discontinued Given 05/27/2023 7:04 AM EST 5 mg Given 05/26/2023 5:48 PM EST 5 mg Given 05/26/2023 5:54 AM EST 5 mg benazepril (Lotensin) tab 40 mg 40 mg, Oral, Daily(AM), First dose on 05/21/23 at 1345, Until Discontinued Given 05/27/2023 9:14 AM EST 40 mg Given 05/26/2023 8:49 AM EST 40 mg Given 05/25/2023 8:31 AM EST 40 mg Bisacodyl (Dulcolax) supp 10 mg 10 mg, Rectal, ONCE, On 05/21/23 at 1000, For 1 dose Given 05/21/2023 10:40 AM EST 10 mg Bisacodyl (Dulcolax) supp 10 mg 10 mg, Rectal, DAILY PRN Constipation, Starting on 05/22/23 at 0000, Until 05/27/23 at 1745 Given 05/25/2023 10:39 AM EST 10 mg Given 05/23/2023 2:08 PM EST 10 mg Given 05/22/2023 2:03 PM EST 10 mg busPIRone (Buspar) tab 5 mg 5 mg, Oral, BID (.AM/PM), First dose on 05/21/23 at 1345, Until Discontinued Given 05/27/2023 9:12 AM EST 5 mg Given 05/26/2023 9:46 PM EST 5 mg Given 05/26/2023 8:47 AM EST 5 mg calcium CARBonate (Tums E-X) tab CHEW 750 mg 750 mg, Oral, Daily(AM), First dose on 05/21/23 at 1000, Until Discontinued Given 05/27/2023 9:13 AM EST 750 mg Given 05/26/2023 8:47 AM EST 750 mg Given 05/25/2023 8:31 AM EST 750 mg Docusate Sodium (Colace) cap 200 mg 200 mg, Oral, BID (.AM/PM), First dose on [place] 05/25/23 at 1515, Until Discontinued, For oral administration ONLY, if route of administration is other than oral and alternative product must be ordered. Given 05/27/2023 9:12 AM EST 200 mg Given 05/26/2023 9:46 PM EST 200 mg Given 05/26/2023 8:46 AM EST 200 mg doxazosin (Cardura) tab 8 mg 8 mg, Oral, QHS, First dose on 05/21/23 at 2200, Until Discontinued Given 05/26/2023 9:46 PM EST 8 mg Given 05/25/2023 9:35 PM EST 8 mg Given 05/24/2023 8:59 PM EST 8 mg Enoxaparin (Lovenox) inj 40 mg 40 mg, Subcutaneous, Daily(AM), First dose on Mon05/22/23 at 0900, Until Discontinued, If patient is on warfarin, inform provider if daily INR value is 2 or greater! Given 05/27/2023 9:13 AM EST 40 mg Abdom en Right Lower Given 05/26/2023 8:47 AM EST 40 mg Ab domen Left Upper Given 05/25/2023 8:32 AM EST 40 mg Ab domen Left Lower Finasteride (Proscar) tab 5 mg 5 mg, Oral, Daily(AM), First dose on Mon05/21/23 at 1345, Until Discontinued Given 05/27/2023 9:12 AM EST 5 mg Given 05/26/2023 8:47 AM EST 5 mg Given 05/25/2023 8:32 AM EST 5 mg fluticasone furoate-vilanterol (BREO ellipta) 100-25 MCG/ACT inhaler 1 Puff 1 Puff, Inhalation, RESPDAILY, First dose on Mon05/22/23 at 0700, Until Discontinued Given 05/27/2023 8:07 AM EST 1 P uff Given 05/26/2023 7:00 AM EST 1 Puff Given 05/25/2023 8:15 AM EST 1 Puff Furosemide (Lasix) tab 20 mg 20 mg, Oral, Daily(AM), First dose on Mon05/23/23 at 1700, Until Discontinued Given 05/27/2023 9:10 AM EST 20 mg Given 05/26/2023 8:47 AM EST 20 mg Given 05/25/2023 8:31 AM EST 20 mg Gabapentin (Neurontin) cap 400 mg 400 mg, Oral, QID(AM/NOON/PM/HS), First dose on Mon05/21/23 at 1345, Until Discontinued Given 05/27/2023 11:08 AM EST 400 mg Given 05/27/2023 7:04 AM EST 400 mg Given 05/26/2023 9:46 PM EST 400 mg hydrALAZINE (Apresoline) inj 5 mg 5 mg, Intravenous, Q8H PRN Other, BP >180/90 if patient does not tolerate po antihypertensives, Starting on Mon05/21/23 at 1322, Until 05/27/23 at 1745 ICaps Lutein & Zeaxanthin tab 1 Tablet 1 Tablet, Oral, Daily(AM), First dose on 05/21/23 at 1345, Until Discontinued Given 05/27/2023 9:12 AM EST 1 T ablet Given 05/26/2023 8:46 AM EST 1 Tablet Given 05/25/2023 8:32 AM EST 1 Tablet isolyte-S pH 7.4 infusion Intravenous, at 60 mL/hr, Plasma-LYTE 148, isolyte-S, and isolyte-S pH 7.4 are considered equivalent - including for MAR barcode scanning., CONTINUOUS, Starting on 05/21/23 at 1130, Until Mon05/23/23 at 1624 New Bag 05/23/2023 2:10 PM EST 60 mL/hr Nurse Change 05/23/2023 7:42 AM EST 60 mL/hr Rate Verify 05/22/2023 10:53 PM EST 60 mL/hr ketorolac (Toradol) 30 MG/ML inj 15 mg 15 mg, IV Push, Q8H PRN Pain, Mild, Starting on 05/21/23 at 0907, Until 05/22/23 at 0906, For 1 day Given 05/21/2023 5:20 PM EST 15 mg Lactulose (Constulose) oral soln 30 g 30 g, Oral, TID(AM/NOON/HS), First dose on Mon05/26/23 at 1230, Last dose on Mon05/28/23 at 0600, For 6 doses Given 05/26/2023 11:57 AM EST 30 g magnesium chloride ER (Mag-64) tab 128 mg 128 mg, Oral, Daily(AM), First dose on 05/21/23 at 1345, Until Discontinued, Each tablet contains 64 mg elemental Magnesium Due to various manufacturers, tablets labeled 70mg are considered to be equivalent Given 05/27/2023 9:12 AM EST 128 mg Given 05/26/2023 8:46 AM EST 128 mg Given 05/25/2023 8:31 AM EST 128 mg melatonin tab 3 mg 3 mg, Oral, HS PRN Insomnia, Starting on 05/21/23 at 0924, Until 05/27/23 at 1745 Given 05/25/2023 9:35 PM EST 3 mg Morphine Sulfate (PF) inj 3 mg 3 mg, IV Push, Q3H PRN Pain, Severe, Pain, Moderate, Starting on 05/21/23 at 0907, Until Mon05/26/23 at 1221 Given 05/25/2023 9:36 PM EST 3 mg Given 05/25/2023 4:11 PM EST 3 mg Given 05/23/2023 8:06 PM EST 3 mg Morphine Sulfate (PF) inj 3 mg 3 mg, IV Push, Q6H PRN Pain, Breakthrough, Starting on Mon05/26/23 at 1933, Until 05/27/23 at 1745 morphine sulfate inj 2 mg 2 mg, IV Push, ONCE, On 05/21/23 at 0445, For 1 dose Given 05/21/2023 5:01 AM EST 2 mg NSS 0.9% 2,000 mL bolus infusion IV Piggyback, at 2,000 mL/hr Administer over 60 Minutes, ONCE, 1 dose, On 05/21/23 at 0445 New Bag 05/21/2023 4:52 AM EST 2,000 mL 2000 mL/hr omeprazole (PriLOSEC) cap 20 mg 20 mg, Oral, BID (.AM/PM), First dose on 05/21/23 at 1000, Until Discontinued, This med should NOT be Crushed or Chewed Given 05/27/2023 9:13 AM EST 20 mg Given 05/26/2023 9:47 PM EST 20 mg Given 05/26/2023 8:47 AM EST 20 mg omeprazole (PriLOSEC) cap 20 mg 20 mg, Oral, BID (.AM/PM), First dose on Mon05/23/23 at 2100, Until Discontinued, This med should NOT be Crushed or Chewed Given 05/25/2023 8:32 AM EST 20 mg Given 05/24/2023 8:59 PM EST 20 mg Given 05/23/2023 9:17 PM EST 20 mg ondansetron (Zofran) inj 4 mg 4 mg, IV Push, ONCE, On 05/21/23 at 0445, For 1 dose Given 05/21/2023 4:57 AM EST 4 mg ondansetron (Zofran) inj 4 mg 4 mg, IV Push, Q6H PRN Nausea, Starting on 05/21/23 at 0924, Until Mon05/21/23 at 1720 Given 05/21/2023 10:40 AM EST 4 mg oxygen GAS Inhalation, OXYGEN, First dose on 05/21/23 at 0800, Until Discontinued, Device/Managed by: Low Flow Device, Goal SPO2 (%): 91-95, Starting Device: Nasal Cannula, Initial Flow Rate (LPM): 2, Lowest Support: Nasal Cannula: Flow 0-6 LPM. Titrate up/down by 1 LPM., Titration Interval: Q2 minutes and as needed., Notify Provider: For sudden DECREASE in resting SPO2 to less than 85% and when escalating delivery device., Wean patient off Oxygen when the oxygen saturation is greater than or equal to 93% Oxygen On 05/24/2023 4:00 PM EST Oxygen On 05/24/2023 8:00 AM EST Oxygen On 05/24/2023 12:00 AM EST Pantoprazole (Protonix) inj 40 mg 40 mg, IV Push, BEFORE BREAKFAST, First dose on 05/22/23 at 0745, Until Discontinued, IV push instructions: Flush I.V. Line before and after administration. In-line filter not required. 2-minute infusion: The volume of reconstituted solution (4mg/ml) to be injected may be administered intravenously over at least 2 minutes. ( Dilute each vial with 10 ml of 0.9% saline PF) Given 05/23/2023 6:33 AM EST 40 mg Given 05/22/2023 8:10 AM EST 40 mg Polyethylene Glycol 3350 (Miralax) oral powder 17 g 17 g (1 Packet), Oral, Daily(AM), First dose on [place] 05/21/23 at 1000, Until Discontinued, Mix in 8 oz of water, juice, soda, coffee, or tea. Given 05/25/2023 8: 33 AM EST 17 g Given 05/24/2023 8:49 AM EST 17 g Given 05/23/2023 9:10 AM EST 17 g Polyethylene Glycol 3350 (Miralax) oral powder 17 g 17 g (1 Packet), Oral, BID (0900,2100), First dose (after last modification) on [place] 05/25/23 at 1515, Until Discontinued, Mix in 8 oz of water, juice, soda, coffee, or tea. Given 05/27/2023 9:13 AM EST 17 g Given 05/26/2023 9:47 PM EST 17 g Given 05/26/2023 8:47 AM EST 17 g potassium chloride ER tab 40 mEq 40 mEq, Oral, ONCE, On Mon05/24/23 at 0845, For 1 dose, This med should NOT be Crushed or Chewed Given 05/24/2023 9:05 AM EST 40 mEq potassium chloride ER tab 40 mEq 40 mEq, Oral, ONCE, On [place] 05/25/23 at 0815, For 1 dose, This med should NOT be Crushed or Chewed Given 05/25/2023 8:31 AM EST 40 mEq potassium chloride ER tab 40 mEq 40 mEq, Oral, Daily(AM), First dose (after last reorder) on [place] 05/25/23 at 1900, Until Discontinued, This med should NOT be Crushed or Chewed Given 05/27/2023 9:12 AM EST 40 mEq Given 05/26/2023 8:46 AM EST 40 mEq Given 05/25/2023 6:49 PM EST 40 mEq predniSONE (Deltasone) tab 5 mg 5 mg, Oral, Daily(AM), First dose on 05/21/23 at 1345, Until Discontinued Given 05/27/2023 9:13 AM EST 5 mg Given 05/26/2023 8:46 AM EST 5 mg Given 05/25/2023 8:31 AM EST 5 mg prochlorperazine (Compazine) inj 10 mg 10 mg, IV Push, ONCE, On 05/21/23 at 1615, For 1 dose Given 05/21/2023 3:41 PM EST 10 mg prochlorperazine (Compazine) inj 10 mg 10 mg, IV Push, Q6H PRN Nausea, Vomiting, Starting on 05/21/23 at 1720, Until 05/27/23 at 1745 Given 05/26/2023 12:29 PM EST 10 mg Given 05/22/2023 5:35 AM EST 10 mg SMOG enema 300 mL, Rectal, ONCE, On 05/21/23 at 1130, For 1 dose Given 05/21/2023 1:01 PM EST 300 mL SMOG enema 300 mL, Rectal, ONCE, On [place] 05/25/23 at 1400, For 1 dose Given 05/25/2023 1:56 PM EST 300 mL sodium chloride 0.9 % flush peripheral piotr 3 mL 3 mL, IV Push, QSHIFT, First dose on 05/21/23 at 1000, Until Discontinued, Do not flush if lock, PICC, or central line not in place; IV infusing or unable to flush. Given 05/27/2023 8:00 AM EST 3 mL Given 05/27/2023 12:00 AM EST 3 mL Given 05/26/2023 4:00 PM EST 3 mL sodium chloride 0.9 % flush/inj 3 mL 3 mL, IV Push, PRN Other, Line Patency, Starting on 05/21/23 at 0922, Until 05/27/23 at 1745, Do not flush if lock, PICC, or central line not in place, IV infusing or unable to flush traMADol (Ultram) tab 50 mg 50 mg, Oral, Q6H PRN Pain, Severe, Starting on Mon05/26/23 at 1931, Until 05/27/23 at 1745 Given 05/26/2023 8: 24 PM EST 50 mg zinc gluconate tab 50 mg 50 mg, Oral, Daily(AM), First dose on 05/21/23 at 1345, Until Discontinued, 50 mg zinc gluconate = 7 mg elemental zinc Given 05/27/2023 9:13 AM EST 50 mg Given 05/26/2023 8:46 AM EST 50 mg Given 05/25/2023 8:32 AM EST 50 mg documented in this encounter Active and Recently Administered Medications Times are shown in EST. Scheduled Medication Order 05/25/2023 05/26/2023 05/27/2023 Acetaminophen (Tylenol) tab 975 mg 975 mg, Oral, Q8H, First dose on 05/21/23 at 1400, Until Discontinued, Maximum of 4 grams (4000 mg) per day. 4205 (Given - Provider: Shahla De Souza RN)4593 (Given - Provider: Rita Bynum RN)2895 (Given - Provider: Elsy Ness RN) 0554 (Given - Provider: Elsy Ness RN)1318 (Given - Provider: Nasrin Garcia RN)214 (Given - Provider: Alicia Dueñas RN) 0704 (Given - Provider: Alicia Dueñas, VEDA) amLODIPine (Norvasc) tab 5 mg 5 mg, Oral, Daily(AM), First dose on 05/21/23 at 1345, Until Discontinued 0831 (Given - Provider: Rita Bynum RN) 0847 (Given - Provider: Nasrin Garcia, VEDA) 0912 (Given - Provider: Nasrin Garcia, VEDA) aspirin enteric coated tab 81 mg 81 mg, Oral, Daily(AM), First dose on 05/21/23 at 1345, Until Discontinued, This med should NOT be Crushed or Chewed 0831 (Given - Provider: Rita Bynum RN) 0846 (Given - Provider: Nasrin Garcia RN) 0912 (Given - Provider: Nasrin Garcia RN) Atenolol (Tenormin) tab 25 mg 25 mg, Oral, QPM-1999, First dose on 05/21/23 at 2000, Until Discontinued, Hold for HR less than 60 or SBP below 100 and notify service if dose is held 2134 (Given - Provider: Elsy Ness RN) 2022 (Given - Provider: Alicia Dueñas, VEDA) Atenolol (Tenormin) tab 50 mg 50 mg, Oral, Daily(AM), First dose on 05/21/23 at 1345, Until Discontinued, Hold for HR less than 60 or SBP below 100 and notify service if dose is held 0832 (Given - Provider: Rita Bynum RN) 0846 (Given - Provider: Nasrin Garcia RN) 0910 (Given - Provider: Nasrin Garcia RN) atorvaSTATin (Lipitor) tab 20 mg 20 mg, Oral, Q1700, First dose on 05/21/23 at 1700, Until Discontinued 1810 (Given - Provider: Rita Bynum RN) 1747 (Given - Provider: Nasrin Garcia RN) Baclofen (Lioresal) tab 5 mg 5 mg, Oral, BID (0700,1900), First dose on Mon05/24/23 at 1200, Until Discontinued 05 (Given - Provider: Shahla De Souza RN)1811 (Given - Provider: Rita Bynum RN) 0554 (Given - Provider: Elsy Ness, VEDA)1748 (Given - Provider: Nasrin Garcia, VEDA) 0704 (Given - Provider: Alicia Dueñas, VEDA) benazepril (Lotensin) tab 40 mg 40 mg, Oral, Daily(AM), First dose on 05/21/23 at 1345, Until Discontinued 08 (Given - Provider: Rita Bynum RN) 0849 (Given - Provider: Nasrin Garcia RN) 0914 (Given - Provider: Nasrin Garcia RN) busPIRone (Buspar) tab 5 mg 5 mg, Oral, BID (.AM/PM), First dose on 05/21/23 at 1345, Until Discontinued 830 (Given - Provider: Rita Bynum RN)2134 (Given - Provider: Elsy Ness RN) 0847 (Given - Provider: Nasrin Garcia RN)2145 (Given - Provider: Alicia Dueñas RN) 09 (Given - Provider: Nasrin Garcia RN) calcium CARBonate (Tums E-X) tab CHEW 750 mg 750 mg, Oral, Daily(AM), First dose on 05/21/23 at 1000, Until Discontinued 830 (Given - Provider: Rita Bynum RN) 0847 (Given - Provider: Nasrin Garcia RN) 0913 (Given - Provider: Nasrin Garcia RN) Docusate Sodium (Colace) cap 200 mg 200 mg, Oral, BID (.AM/PM), First dose on [place] 05/25/23 at 1515, Until Discontinued, For oral administration ONLY, if route of administration is other than oral and alternative product must be ordered. 1605 (Given - Provider: Rita Bynum RN) 0846 (Given - Provider: Nasrin Garcia RN)2145 (Given - Provider: Alicia Dueñas, VEDA) 09 (Given - Provider: Nasrin Garcia, VEDA) doxazosin (Cardura) tab 8 mg 8 mg, Oral, QHS, First dose on 05/21/23 at 2200, Until Discontinued 2134 (Given - Provider: Elsy Ness, VEDA) 2145 (Given - Provider: Alicia Dueñas, VEDA) Enoxaparin (Lovenox) inj 40 mg 40 mg, Subcutaneous, Daily(AM), First dose on Mon05/22/23 at 0900, Until Discontinued, If patient is on warfarin, inform provider if daily INR value is 2 or greater! 0832 (Given - Provider: Rita Bynum RN) 0847 (Given - Provider: Nasrin Garcia, VEDA) 0913 (Given - Provider: Nasrin Garcia, VEDA) Finasteride (Proscar) tab 5 mg 5 mg, Oral, Daily(AM), First dose on Mon05/21/23 at 1345, Until Discontinued 0832 (Given - Provider: Rita Bynum RN) 0847 (Given - Provider: Nasrin Garcia, VEDA) 0912 (Given - Provider: Nasrin Garcia, VEDA) fluticasone furoate-vilanterol (BREO ellipta) 100-25 MCG/ACT inhaler 1 Puff 1 Puff, Inhalation, RESPDAILY, First dose on Mon05/22/23 at 0700, Until Discontinued 0815 (Given - Provider: Rosibel Houston, BRACER) 0700 (Given - Provider: Robert Rankin, ADELE) 0807 (Given - Provider: Krysta Seymour, ADELE) Furosemide (Lasix) tab 20 mg 20 mg, Oral, Daily(AM), First dose on Mon05/23/23 at 1700, Until Discontinued 0831 (Given - Provider: Rita Bynum RN) 0847 (Given - Provider: Nasrin Garcia RN) 0910 (Given - Provider: Nasrin Garcia, VEDA) Gabapentin (Neurontin) cap 400 mg 400 mg, Oral, QID(AM/NOON/PM/HS), First dose on Mon05/21/23 at 1345, Until Discontinued 526 (Given - Provider: Shahla De Souza, VEDA)1115 (Given - Provider: Rita Bynum RN)1811 (Given - Provider: Rita Bynum RN)2134 (Given - Provider: Elsy Ness RN) 0554 (Given - Provider: Elsy Ness RN)1156 (Given - Provider: Nasrin Garcia, VEDA)1748 (Given - Provider: Nasrin Garcia RN)214 (Given - Provider: Alicia Dueñas, VEDA) 0704 (Given - Provider: Alicia Dueñas, VEDA)1108 (Given - Provider: Nasrin Garcia, VEDA) ICaps Lutein & Zeaxanthin tab 1 Tablet 1 Tablet, Oral, Daily(AM), First dose on 05/21/23 at 1345, Until Discontinued 0832 (Given - Provider: Rita Bynum RN) 0846 (Given - Provider: Nasrin Garcia RN) 0912 (Given - Provider: Nasrin Garcia RN) Lactulose (Constulose) oral soln 30 g (CANCELED) 30 g, Oral, TID(AM/NOON/HS), First dose on Mon05/26/23 at 1230, Last dose on Mon05/28/23 at 0600, For 6 doses 1157 (Given - Provider: Nasrin Garcia RN) magnesium chloride ER (Mag-64) tab 128 mg 128 mg, Oral, Daily(AM), First dose on 05/21/23 at 1345, Until Discontinued, Each tablet contains 64 mg elemental Magnesium Due to various manufacturers, tablets labeled 70mg are considered to be equivalent 0831 (Given - Provider: Rita Bynum RN) 0846 (Given - Provider: Nasrin Garcia RN) 0912 (Given - Provider: Nasrin Garcia RN) omeprazole (PriLOSEC) cap 20 mg 20 mg, Oral, BID (.AM/PM), First dose on 05/21/23 at 1000, Until Discontinued, This med should NOT be Crushed or Chewed 0900 (Not Given - Provider: Rita Bynum RN - Reason: Order Clarified)2134 (Given - Provider: Elsy Ness RN) 0847 (Given - Provider: Nasrin Garcia RN)2147 (Given - Provider: Alicia Dueñas, VEDA) 0913 (Given - Provider: Nasrin Garcia RN) omeprazole (PriLOSEC) cap 20 mg (CANCELED) 20 mg, Oral, BID (.AM/PM), First dose on Mon05/23/23 at 2100, Until Discontinued, This med should NOT be Crushed or Chewed 0832 (Given - Provider: Rita Bynum RN) oxygen GAS Inhalation, OXYGEN, First dose on Mon05/21/23 at 0800, Until Discontinued, Device/Managed by: Low Flow Device, Goal SPO2 (%): 91-95, Starting Device: Nasal Cannula, Initial Flow Rate (LPM): 2, Lowest Support: Nasal Cannula: Flow 0-6 LPM. Titrate up/down by 1 LPM., Titration Interval: Q2 minutes and as needed., Notify Provider: For sudden DECREASE in resting SPO2 to less than 85% and when escalating delivery device., Wean patient off Oxygen when the oxygen saturation is greater than or equal to 93% 0000 (Oxygen Off - Provider: Shahla De Souza RN)0800 (Oxygen Off - Provider: Rita Bynum RN)1600 (Oxygen Off - Provider: Rita Bynum RN) 0000 (Oxygen Off - Provider: Elsy Ness RN)0800 (Oxygen Off - Provider: Nasrin Garcia, VEDA)1600 (Oxygen Off - Provider: Nasrin Garcia RN) 0000 (Oxygen Off - Provider: Alicia Dueñas RN)0800 (Oxygen Off - Provider: Nasrin Garcia RN) Polyethylene Glycol 3350 (Miralax) oral powder 17 g (CANCELED) 17 g (1 Packet), Oral, Daily(AM), First dose on Mon05/21/23 at 1000, Until Discontinued, Mix in 8 oz of water, juice, soda, coffee, or tea. 0833 (Given - Provider: Rita Bynum RN) Polyethylene Glycol 3350 (Miralax) oral powder 17 g 17 g (1 Packet), Oral, BID (0900,2100), First dose (after last modification) on Mon05/25/23 at 1515, Until Discontinued, Mix in 8 oz of water, juice, soda, coffee, or tea. 1605 (Given - Provider: Rita Bynum RN) 0847 (Given - Provider: Nasrin Garcia RN)2147 (Given - Provider: Alicia Dueñas, VEDA) 0913 (Given - Provider: Nasrin Garcia RN) potassium chloride ER tab 40 mEq (COMPLETED) 40 mEq, Oral, ONCE, On [place] 05/25/23 at 0815, For 1 dose, This med should NOT be Crushed or Chewed 0831 (Given - Provider: Rita Bynum RN) potassium chloride ER tab 40 mEq 40 mEq, Oral, Daily(AM), First dose (after last reorder) on [place] 05/25/23 at 1900, Until Discontinued, This med should NOT be Crushed or Chewed 1849 (Given - Provider: Rita Bynum RN) 0846 (Given - Provider: Nasrin Garcia RN) 0912 (Given - Provider: Nasrin Garcia RN) predniSONE (Deltasone) tab 5 mg 5 mg, Oral, Daily(AM), First dose on [place] 05/21/23 at 1345, Until Discontinued 0831 (Given - Provider: Rita Bynum RN) 0846 (Given - Provider: Nasrin Garcia RN) 0913 (Given - Provider: Nasrin Garcia RN) SMOG enema (COMPLETED) 300 mL, Rectal, ONCE, On [place] 05/25/23 at 1400, For 1 dose 1356 (Given - Provider: Rita Bynum RN) sodium chloride 0.9 % flush peripheral piotr 3 mL 3 mL, IV Push, QSHIFT, First dose on [place] 05/21/23 at 1000, Until Discontinued, Do not flush if lock, PICC, or central line not in place; IV infusing or unable to flush. 0000 (Given - Provider: Shahla De Souza, VEDA)0800 (Given - Provider: Rita Bynum RN)1600 (Given - Provider: Rita Bynum RN) 0000 (Given - Provider: Elsy Ness RN)0800 (Given - Provider: Nasrin Garcia RN)1600 (Given - Provider: Nasrin Garcia RN) 0000 (Given - Provider: Alicia Dueñas RN)0800 (Given - Provider: Nasrin Garcia RN) zinc gluconate tab 50 mg 50 mg, Oral, Daily(AM), First dose on 05/21/23 at 1345, Until Discontinued, 50 mg zinc gluconate = 7 mg elemental zinc 0832 (Given - Provider: Rita Bynum RN) 0846 (Given - Provider: Nasrin Garcia, RN) 0913 (Given - Provider: Nasrin Garcia, RN) PRN Medication Order 05/25/2023 05/26/2023 05/27/2023 albuterol-ipratropium (Duoneb) inhalation solution 3 mL 3 mL, Nebulizer, Q6H PRN Dyspnea, Starting on 05/21/23 at 0910, Until 05/27/23 at 1745, 3 mL = 0.5 mg ipratropium/ 2.5 mg albuterol Benzonatate (Tessalon Perles) cap 100 mg 100 mg, Oral, TID PRN Cough, Starting on 05/21/23 at 0913, Until 05/27/23 at 1745, This med should NOT be Crushed or Chewed Bisacodyl (Dulcolax) supp 10 mg 10 mg, Rectal, DAILY PRN Constipation, Starting on 05/22/23 at 0000, Until 05/27/23 at 1745 1039 (Given - Provider: Rita Bynum RN) hydrALAZINE (Apresoline) inj 5 mg 5 mg, Intravenous, Q8H PRN Other, BP >180/90 if patient does not tolerate po antihypertensives, Starting on 05/21/23 at 1322, Until 05/27/23 at 1745 melatonin tab 3 mg 3 mg, Oral, HS PRN Insomnia, Starting on 05/21/23 at 0924, Until 05/27/23 at 1745 2135 (Given - Provider: Elsy Ness, VEDA) Morphine Sulfate (PF) inj 3 mg (CANCELED) 3 mg, IV Push, Q3H PRN Pain, Severe, Pain, Moderate, Starting on 05/21/23 at 0907, Until 05/26/23 at 1221 1611 (Given - Provider: Rita Bynum RN)2136 (Given - Provider: Elsy Ness, VEDA) Morphine Sulfate (PF) inj 3 mg 3 mg, IV Push, Q6H PRN Pain, Breakthrough, Starting on Mon05/26/23 at 1933, Until 05/27/23 at 1745 prochlorperazine (Compazine) inj 10 mg 10 mg, IV Push, Q6H PRN Nausea, Vomiting, Starting on 05/21/23 at 1720, Until 05/27/23 at 1745 1229 (Given - Provider: Bk Castillo RN) sodium chloride 0.9 % flush/inj 3 mL 3 mL, IV Push, PRN Other, Line Patency, Starting on 05/21/23 at 0922, Until 05/27/23 at 1745, Do not flush if lock, PICC, or central line not in place, IV infusing or unable to flush traMADol (Ultram) tab 50 mg 50 mg, Oral, Q6H PRN Pain, Severe, Starting on Mon05/26/23 at 1931, Until 05/27/23 at 1745 202 (Given - Provider: Alicia Dueñas RN) documented in this encounter Advance Directives [...] the patient have Health Care Power of Animal Treatment Investigator? No Full Code 11/07/2013 9:36 AM 11/07/2013 1:54 PM This order reflects the patients wishes and were consensually agreed upon. Healthcare Agents on File Name Relationship Healthcare Agent Relationship Communication Soledad Peters Spouse Health Care Agen t (per Health Care Power of Animal Treatment Investigator document) [email or web address] [email or web address] Adult Child First Alternate Health Care Agent (per Health Care Power of Animal Treatment Investigator document) [email or web address] Poultry Vaccinator Relationship Specialty Start Date End Date Mirza Mcgee III, MD [address] [place] [address], [place] [address] PCP - General Family Medicine 08/11/18 documented as of this encounter
--- OUTSIDE RECORDS SUMMARY | 2023-07-04 20:41 | External Medical Summary | Summary of Care ---
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 Never true 03/01/20 23 Within the past 12 months, t [...] Description 06/02/2023 10:45 AM EST Imaging Radiology, [address] [place] [id number] 06/07/2023 8:00 AM EST Office Visit Ophthalmology, [facility] [address] [place] [address] Toney Davis, DO [address] [place] [address] 06/08/2023 1:30 PM EST Telemedicine Hematology/Oncology, [address] [address] Cayden Sand[facility] [address] [facility] [address] 07/06/2023 12:40 PM EST Office Visit Podiatry [facility] [address] [place] [address] Felicita Copeland DPM [address] [place] [address] 07/27/2023 12:40 PM EST Office Visit Gastroenterology, [facility] [address] [facility] [phone] Trina Plaza DO [address] [place] [address] 08/03/2023 1:30 PM EST Office Visit Urology [facility] [place] [address] [place] [address] Ryan Cunningham MD [address] [place] [address] 09/11/2023 2:00 PM EDT Appointment Radiology, [facility] [address] [facility] [place] [address] 09/11/2023 2:30 PM EDT Pul[facility]ostic [facility] [place] [address] [place] [address] [place], [address] [place] [address] 09/11/2023 3:00 PM EDT Office Visit Pulmonary Medicine Harry Rowley [place] [address] [place] [phone] Saul Moscoso MD [address] [place] [address] 10/25/2023 2:40 PM EDT Office Visit Family Practice [facility] [place] [address] [facility] [place], [place] [address] [place] Mirza SHAFER MD [address] [facility] [place], [place] [address] 05/02/2024 1:00 PM EST Office Visit Sleep Disorders, [facility] [address] [facility] [place] [address] Alesha John MD [address] [place] [address] Health Maintenance Due Date Last Done Comments [...] Screening 02/03/2024 02/02/2023 CKD PHOS USE SMARTSET 18053 05/22/202404/27, 10/26/2022, 03/17/2022, Additional history exists CKD HGB USE SMARTSET 43948 05/27/202405/27, 05/26/2023, 05/25/2023, Additional history exists O2 ASSESSMENT COMPLETED IN PAST YEAR FOR COPD 05/27/2024 05/27/2023 Pneumococcal Vaccine: 65+ Years Completed 09/22/2015, 08/21/2001 VITAMIN D LEVEL ONCE IN A LIFETIME-USE SMARTSET# [id number] Completed 10/26/2022, 10/11/2021, 01/01/2019, Additional history exists Influenza Vaccine (FLU shot) Completed , 03/31/2022, 03/23/2021, Additional history exists GARDASIL-HPV IMMUNIZATION SERIES Aged Out No longer eligible based on patient's age to complete this topic MENINGOCOCCAL (MENACTRA/MENVEO) Aged Out No longer eligible based on patient's age to complete this topic documented as of this encounter Medical Devices Implanted Type Area Laboratory Sample Carrier Device Identifier Shelf Expiration Date Model / Serial / Lot Femur Nexgn E Right - [id number] Implanted:Qty: 1 on 05/12/[address] [facility] Right: Knee [employer] 02/24/2018 [id number] / / [id number] Femur Nexgn E Left - [id number] Implanted:Qty: 1 on 11/19/[address] [facility] Left: Knee [employer] [id number] / / [id number] Sut Steel 6 [id number] - [id number] Implanted:Qty: 6 on 07/11/[address] [facility] N/A: Chest DO NOT USE 01/09/2016 / / [id number] [employer]re[employer] A[employer]ision Lens [id number] Implanted:Qty: 1 on 11/07/2013 at OR [facility] Right: Eye 06/25/2016 [id number] / [id number] / [id number] documented as of this encounter Advance Directives [...] the patient have Health Care Power of Construction Skills Teacher? No Full Code 11/07/2013 9:36 AM 11/07/2013 1:54 PM This order reflects the patients wishes and were consensually agreed upon. Healthcare Agents on File Name Relationship Healthcare Agent Relationship Communication Soledad Peters Spouse Health Care Agen t (per Health Care Power of Construction Skills Teacher document) [email or web address] [email or web address] Hernández Adult Child First Alternate Health Care Agent (per Health Care Power of Construction Skills Teacher document) [email or web address] Care Teams Forge Tender Relationship Specialty Start Date End Date Mirza Mcgee III, MD [facility] [address] PCP - General Family Medicine 08/11/18 documented as of this encounter
--- OUTSIDE RECORDS SUMMARY | 2023-07-04 20:41 | External Medical Summary ---
Author Name Unknown Address Unknown Organization K1F:LABORATORY [facility] - [address] [place] [address] Laboratory Report Ordering Provider Test Date Status BREONNA GARCIA 05/25/2023 07:04:00 Final Observation Date Value Abnormality Reference (Units ) Status BUN 05/25/2023 07:04:00 17 6-20 (mg/dL) Final Creatinine 05/25/2023 07:04:00 0.9 0.6-1.2 (mg/dL) Final Glomerular filtration rate/1.73 sq M.predicted [Volume Rate/Area] in Serum, Plasma or Blood by Creatinine-based formula (CKD-EPI) 05/25/2023 07:04:00 79 >=60 (mL/min) Final eGFR is calculated based on the CKD-EPI 2020 equation SODIUM 05/25/2023 07:04:00 141 135-146 (m mol/L) Final Potassium 05/25/2023 07:04:00 3.4 Below low normal 3.5 -5.1 (mmol/L) Final Cl 05/25/2023 07:04:00 103 98-107 (mm ol/L) Final CO2 05/25/2023 07:04:00 28 22-32 (mmo l/L) Final Anion gap 05/25/2023 07:04:00 10 7-15 (mmol /L) Final Glucose 05/25/2023 07:04:00 100 70-120 (mg /dL) Final Calcium 05/25/2023 07:04:00 8.0 Below low normal 8.4 -10.2 (mg/dL) Final Performing Location LAB[facility]ATORY [facility] - [address] [place] [address]
--- OUTSIDE RECORDS SUMMARY | 2023-07-04 20:41 | External Medical Summary ---
Author Name Unknown Address Unknown Organization : Laboratory Report Ordering Provider Test Date Status BREONNA GARCIA 05/24/2023 16:23:52 Final Observation Date Value Abnormality Reference (Units ) Status Glucose Point of Care 05/24/2023 16:23:52 119 70-120 (mg/dL) Final Performing Location
--- OUTSIDE RECORDS SUMMARY | 2023-07-04 20:41 | External Medical Summary ---
Author Name Unknown Address Unknown Organization : Laboratory Report Ordering Provider Test Date Status CARLEE EDOUARD 05/23/2023 16:31:44 Final Observation Date Value Abnormality Reference (Units ) Status Glucose Point of Care 05/23/2023 16:31:44 126 Above high normal 70-120 (mg/dL) Final Performing Location
--- OUTSIDE RECORDS SUMMARY | 2023-07-04 20:41 | External Medical Summary ---
Author Name Unknown Address Unknown Organization K1F:LABORATORY [facility] - [address] [place] [address] Laboratory Report Ordering Provider Test Date Status BREONNA GARCIA 05/27/2023 07:12:00 Final Observation Date Value Abnormality Reference (Units ) Status WBC, Total 05/27/2023 07:12:00 6.13 4.00-10.80 (K/uL) Final RBC 05/27/2023 07:12:00 4.71 4.50-5.25 (M/uL) Final Hemoglobin 05/27/2023 07:12:00 14.0 14.0-16.8 (g/dL) Final HCT 05/27/2023 07:12:00 43.6 40.0-48.4 (%) Final MCV 05/27/2023 07:12:00 92.6 82.0-99.5 (fL) Final MCH 05/27/2023 07:12:00 29.7 27.0-34.0 (pg) Final MCHC 05/27/2023 07:12:00 32.1 32.0-36.0 (g/dL) Final RDW 05/27/2023 07:12:00 13.2 11.5-15.5 (%) Final Platelets 05/27/2023 07:12:00 183 140-400 (K/uL) Final MPV 05/27/2023 07:12:00 11.2 6.6-11.1 (fL) Final Nucleated erythrocytes/100 leukocytes [Ratio] in Blood by Automated count 05/27/2023 07:12:00 0 <=0 (/100 WBCs) Final Performing Location LABORATORY [facility] - [address] [place] [address]
--- OUTSIDE RECORDS SUMMARY | 2023-07-04 20:41 | External Medical Summary ---
Author Name Unknown Address Unknown Organization : Laboratory Report Ordering Provider Test Date Status BREONNA GARCIA 05/25/2023 16:50:23 Final Observation Date Value Abnormality Reference (Units ) Status Glucose Point of Care 05/25/2023 16:50:23 111 70-120 (mg/dL) Final Performing Location
--- OUTSIDE RECORDS SUMMARY | 2023-07-04 20:42 | External Medical Summary ---
Author Name Unknown Address Unknown Organization K1F:LABORATORY [facility] - [address] [facility] [place] [address] Laboratory Report Ordering Provider Test Date Status RAIMUNDO GIBSON 05/21/2023 04:41:37 Final Observation Date Value Abnormality Reference (Units ) Status SYNC LEUKOCYTES IN BLOOD BY AUTOMATED COUNT 05/21/2023 04:41:37 6.57 4.00-10.80 (K/uL) Final Segs 05/21/2023 04:41:37 80.6 Above high normal 40.0-75.0 (%) Final Lymphs % 05/21/2023 04:41:37 7.6 Below low normal 18.0-42.0 (%) Final Monos 05/21/2023 04:41:37 10.7 1.0-11.0 (%) Final Eosinophils 05/21/2023 04:41:37 0.6 0.0-6.0 (%) Final Basos 05/21/2023 04:41:37 0.2 0.0-2.0 (%) Final Immature Granulocyte, Percent 05/21/2023 04:41:37 0.3 0.0-2.0 (%) Final Absolute Segs 05/21/2023 04:41:37 5.30 1.80-7.70 (K/uL) Final Lymphs, absolute 05/21/2023 04:41:37 0.50 Below low normal 1.00-4.80 (K/ul) Final Monos, Abs 05/21/2023 04:41:37 0.70 0.00-1.10 (K/uL) Final Eos, Abs 05/21/2023 04:41:37 0.04 0.00-0.70 (K/uL) Final Basos, Abs 05/21/2023 04:41:37 0.01 0.00-0.20 (K/uL) Final Immature Granulocytes, Number 05/21/2023 04:41:37 0.02 0.00-0.20 (K/uL) Final Performing Location LABORATORY [facility] - [address] [place] [address]
--- OUTSIDE RECORDS SUMMARY | 2023-07-04 20:42 | External Medical Summary ---
Author Name Unknown Address Unknown Organization K1F:LABORATORY [facility] - [address] [place], [place] [address]Kristina [place] [address] Laboratory Report Ordering Provider Test Date Status RAIMUNDO GIBSON 05/21/2023 04:41:37 Final Observation Date Value Abnormality Reference (Units ) Status Bacteria identified in Specimen by Culture 05/21/2023 04:41:37 No growth Final Test: Culture, Blood (Site 2)
Specimen Source: Blood, Venous
Specimen Type: Blood
Specimen Date: 05/21/2023 4:41 AM
Result Date: 05/26/2023 5:01 AM
Result Status: Final result
Resulting Lab: LABORATORY [facility]
[address] [place] [address]
[place] [address]

CULTURE

No growth

null Performing Location LABORATORY [facility] - [address] [place] [address] Ave. [place] [address]
--- OUTSIDE RECORDS SUMMARY | 2023-07-04 20:42 | External Medical Summary ---
Author Name Unknown Address Unknown Organization K1F:LABORATORY [facility] - [address] [place] [address] [place] [address] Laboratory Report Ordering Provider Test Date Status RAIMUNDO GIBSON 05/21/2023 04:41:37 Final Observation Date Value Abnormality Reference (Units ) Status Bacteria identified in Specimen by Culture 05/21/2023 04:41:37 No growth Final Test: Culture, Blood
Sp ecimen Source: Blood, Venous
Specimen Type: Blood
Specimen Date: 05/21/2023 4:41 AM
Result Date: 05/26/2023 5:01 AM
Result Status: Final result
Resulting Lab: LABORATORY [facility]
[address] [place] [address]
[place] [address]

CULTURE

No growth

null Performing Location LABORATORY [facility] - [address] [place], [place] [address]ai [place] [address]
--- OUTSIDE RECORDS SUMMARY | 2023-07-04 20:42 | External Medical Summary ---
Author Name Unknown Address Unknown Organization : Laboratory Report Ordering Provider Test Date Status CARLEE EDOUARD 05/22/2023 11:21:10 Final Observation Date Value Abnormality Reference (Units ) Status Glucose Point of Care 05/22/2023 11:21:10 124 Above high normal 70-120 (mg/dL) Final Performing Location
--- OUTSIDE RECORDS SUMMARY | 2023-07-04 20:42 | External Medical Summary ---
Author Name Unknown Address Unknown Organization K1F:LABORATORY [facility] - [address] [place] [address] Laboratory Report Ordering Provider Test Date Status GIALVAREZ 05/22/2023 05:39:00 Final Observation Date Value Abnormality Reference (Units ) Status Phosphate 05/22/2023 05:39:00 2.9 2.5-4.8 (m g/dL) Final Performing Location LABORATORY [facility] - [address] [place] [address]
--- OUTSIDE RECORDS SUMMARY | 2023-07-04 20:42 | External Medical Summary ---
Author Name Unknown Address Unknown Organization K1F:LABORATORY [facility] - [address] [place] [address] Laboratory Report Ordering Provider Test Date Status ANTONIO ANGELO 05/22/2023 05:39:00 Final Observation Date Value Abnormality Reference (Units ) Status BUN 05/22/2023 05:39:00 12 6-20 (mg/dL) Final Creatinine 05/22/2023 05:39:00 0.8 0.6-1.2 (mg/dL) Final Glomerular filtration rate/1.73 sq M.predicted [Volume Rate/Area] in Serum, Plasma or Blood by Creatinine-based formula (CKD-EPI) 05/22/2023 05:39:00 86 >=60 (mL/min) Final eGFR is calculated based on the CKD-EPI 2020 equation SODIUM 05/22/2023 05:39:00 135 135-146 (m mol/L) Final Potassium 05/22/2023 05:39:00 Final Specimen too hemolyzed. Reor bhavya if needed. Cl 05/22/2023 05:39:00 100 98-107 (mm ol/L) Final CO2 05/22/2023 05:39:00 22 22-32 (mmo l/L) Final Anion gap 05/22/2023 05:39:00 13 7-15 (mmol /L) Final Glucose 05/22/2023 05:39:00 117 70-120 (mg /dL) Final Albumin 05/22/2023 05:39:00 3.6 Below low normal 3.8 -5.0 (g/dL) Final AST (Aspartate aminotransferase) 05/22/2023 05:39:00 Fin al Specimen too hemolyzed. Reor bhavya if needed. Alk Phos 05/22/2023 05:39:00 107 35-130 (U/ L) Final Result may be falsely elevat ed due to hemolysis. Bilirubin, Total 05/22/2023 05:39:00 0.9 <=1 .2 (mg/dL) Final Calcium 05/22/2023 05:39:00 8.1 Below low normal 8.4 -10.2 (mg/dL) Final Protein 05/22/2023 05:39:00 6.9 6.0-8.3 (g /dL) Final ALT (Alanine aminotransferase) 05/22/2023 05:39:00 23 10-50 (U/L) Fin al Result may be falsely elevat ed due to hemolysis. Performing Location LABORATORY [facility] - [facility] [address] [place] [address]
--- OUTSIDE RECORDS SUMMARY | 2023-07-04 20:42 | External Medical Summary ---
Author Name Unknown Address Unknown Organization K1F:LABORATORY [facility] - [address] [place] [address] Laboratory Report Ordering Provider Test Date Status RAIMUNDO GIBSON 05/21/2023 04:21:52 Final Observation Date Value Abnormality Reference (Units ) Status Color of Urine by Auto 05/21/2023 04:21:52 Yellow Light Yellow, Yellow, Dark Yellow Final Clarity, Urine 05/21/2023 04:21:52 Clear Clear Final Glucose [Mass/volume] in Urine by Automated test strip 05/21/2023 04:21:52 Negative Negative (mg/dL) Final Bilirubin.total [Presence] in Urine by Automated test strip 05/21/2023 04:21:52 Negative Negative Final Ketones [Mass/volume] in Urine by Automated test strip 05/21/2023 04:21:52 40 Abnormal Negative (mg/dL) Final Specific gravity, Urine 05/21/2023 04:21:52 1.011 1.003-1.030 Final Hemoglobin [Presence] in Urine by Automated test strip 05/21/2023 04:21:52 Negative Negative Final pH, Urine 05/21/2023 04:21:52 8.0 Above high normal 5.0-7.5 (Units) Final Protein [Mass/volume] in Urine by Automated test strip 05/21/2023 04:21:52 Trace Abnormal Negative (mg/dL) Final Urobilinogen [Mass/volume] in Urine by Automated test strip 05/21/2023 04:21:52 1.0 0.2, 1.0 (mg/dL) Final Nitrite [Presence] in Urine by Automated test strip 05/21/2023 04:21:52 Negative Negative Final Leukocyte esterase [Presence] in Urine by Automated test strip 05/21/2023 04:21:52 Negative Negative Final Annotation Comment 05/21/2023 04:21:52 Final Screen negative - Microscopi c not performed. Performing Location LABORATORY [facility] - [address] [place] [address]
--- OUTSIDE RECORDS SUMMARY | 2023-07-04 20:42 | External Medical Summary ---
Author Name Unknown Address Unknown Organization K1F:LABORATORY [facility] - [address] [place] [address] Laboratory Report Ordering Provider Test Date Status CARLEE EDOUARD 05/23/2023 06:15:00 Final Observation Date Value Abnormality Reference (Units ) Status BUN 05/23/2023 06:15:00 15 6-20 (mg/dL) Final Creatinine 05/23/2023 06:15:00 0.9 0.6-1.2 (mg/dL) Final Glomerular filtration rate/1.73 sq M.predicted [Volume Rate/Area] in Serum, Plasma or Blood by Creatinine-based formula (CKD-EPI) 05/23/2023 06:15:00 83 >=60 (mL/min) Final eGFR is calculated based on the CKD-EPI 2020 equation SODIUM 05/23/2023 06:15:00 138 135-146 (m mol/L) Final Potassium 05/23/2023 06:15:00 3.2 Below low normal 3.5 -5.1 (mmol/L) Final Cl 05/23/2023 06:15:00 100 98-107 (mm ol/L) Final CO2 05/23/2023 06:15:00 25 22-32 (mmo l/L) Final Anion gap 05/23/2023 06:15:00 13 7-15 (mmol /L) Final Glucose 05/23/2023 06:15:00 98 70-120 (mg /dL) Final Calcium 05/23/2023 06:15:00 7.7 Below low normal 8.4 -10.2 (mg/dL) Final Performing Location LABORATORY [facility] - [address] [place] [address]
--- OUTSIDE RECORDS SUMMARY | 2023-07-04 20:42 | External Medical Summary ---
Author Name Unknown Address Unknown Organization K1F:LABORATORY [facility] - [address] [place] [address] Laboratory Report Ordering Provider Test Date Status CARLEE EDOUARD 05/23/2023 06:15:00 Final Observation Date Value Abnormality Reference (Units ) Status WBC, Total 05/23/2023 06:15:00 5.55 4.00-10.80 (K/uL) Final RBC 05/23/2023 06:15:00 4.53 4.50-5.25 (M/uL) Final Hemoglobin 05/23/2023 06:15:00 13.3 Below low normal 14.0-16.8 (g/dL) Final HCT 05/23/2023 06:15:00 40.7 40.0-48.4 (%) Final MCV 05/23/2023 06:15:00 89.8 82.0-99.5 (fL) Final MCH 05/23/2023 06:15:00 29.4 27.0-34.0 (pg) Final MCHC 05/23/2023 06:15:00 32.7 32.0-36.0 (g/dL) Final RDW 05/23/2023 06:15:00 13.2 11.5-15.5 (%) Final Platelets 05/23/2023 06:15:00 148 140-400 (K/uL) Final MPV 05/23/2023 06:15:00 11.0 6.6-11.1 (fL) Final Nucleated erythrocytes/100 leukocytes [Ratio] in Blood by Automated count 05/23/2023 06:15:00 0 <=0 (/100 WBCs) Final Performing Location LABORATORY [facility] - [address] [place] [address]
--- OUTSIDE RECORDS SUMMARY | 2023-07-04 20:42 | External Medical Summary ---
Author Name Unknown Address Unknown Organization K1F:LABORATORY [facility] - [address] [place] [address] Laboratory Report Ordering Provider Test Date Status RAIMUNDO GIBSON 05/21/2023 04:41:37 Final Observation Date Value Abnormality Reference (Units ) Status BUN 05/21/2023 04:41:37 11 6-20 (mg/dL) Final Creatinine 05/21/2023 04:41:37 0.8 0.6-1.2 (mg/dL) Final Glomerular filtration rate/1.73 sq M.predicted [Volume Rate/Area] in Serum, Plasma or Blood by Creatinine-based formula (CKD-EPI) 05/21/2023 04:41:37 86 >=60 (mL/min) Final eGFR is calculated based on the CKD-EPI 2020 equation SODIUM 05/21/2023 04:41:37 135 135-146 (m mol/L) Final Potassium 05/21/2023 04:41:37 3.8 3.5-5.1 (m mol/L) Final Cl 05/21/2023 04:41:37 98 98-107 (mm ol/L) Final CO2 05/21/2023 04:41:37 23 22-32 (mmo l/L) Final Anion gap 05/21/2023 04:41:37 14 7-15 (mmol /L) Final Glucose 05/21/2023 04:41:37 117 70-120 (mg /dL) Final Calcium 05/21/2023 04:41:37 8.7 8.4-10.2 ( mg/dL) Final Performing Location LABORATORY [facility] - [address] [place] [address]
--- OUTSIDE RECORDS SUMMARY | 2023-07-04 20:42 | External Medical Summary | Summary of Care ---
Author Name Unknown Organization [facility] Address [address] [place] [address] Phone [phone] Care Team Providers Care Front Attendant Name Role Phone Everardo SHAFER MD, Mirza Zeng Primary Care Provider [phone] Reason for Visit * Reason Onset Date Comments [facility]: Maintenance 05/22/2023 Encounter Details Date Type Department Care Team (Late st Contact Info) Description 05/22/2023 Telephone [facility], [facility] [address] [facility] [place] [address] [facility], Nurse [facility] [address] [place] [address] [facility]: Maintenance Allergies Active Allergy Reactions Criticality Noted Date Comments Amoxicillin Rash 09/27/2005 At time of knee replacement Oxycodone Other (Please comment) 10/11/2012 Severe mental change Oxycodone-Acetaminophe n Other (Please comment) 03/15/2010 Severe mental change documented as of this encounter (statuses as of 05/22/2023) Medications Medication Sig Dispensed Refills Start Date End Date Status PRESERVISION AREDS 2 PO CAPS one by mouth twice a day 0 Suspended DIURETIC TITRATION PLAN If no improvement on day 3, contact heart failure managing provider or [facility] patient case manager 1 Each 0 01/30/2019 Suspended Additional Information [...] n 1 Each 03/31/2021 Suspended Additional Information Robitussin Cough+Chest Fidel DM 20-200 MG/20ML Oral Liquid (Dextromethorphan- guaiFENesin) Take by mouth . 0 Suspend ed Potassium Chloride ER 10 MEQ Oral Tablet [...] 1.5 lpm bled into cpap 0 Suspended Fluconazole 100 MG Oral Tablet (Diflucan) Take 1 Tablet by mouth in the morning. 2 for 1 day, then 1 .. 11 Tablet 0 05/03/2023 Suspended Additional Information traMADol HCl 50 MG Oral Tablet (Ultram)Indication s:Cancer (HCC) Take 1 Tablet by mouth every 6 hours as needed for Pain, Moderate or Pain, Severe. 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 10/18 [...] as of this encounter (statuses as of 05/22/2023) Resolved Problems Problem Noted Date Diagnosed Date [...] lower extremities 11/24/2008 09/22/2015 Overview: seen at [facility] ER Anemia 05/13/2008 03/21/2017 Osteoarthritis of [...] 2 08/23/2018 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 [facility] SITE 02/2019 Overview: knees documented as of this encounter (statuses as of 05/22/2023) Immunizations Name Administration Dates Next Due COVID-19 mRNA, LNP-s, No Pre serve, 2-Dose Series ([employer]port[employer]) 08/30/2020,08/02/2020 Pneumococcal Conjugate Vacc, 13 Valent (Prevnar) [...] Telephone Encounter - Rae Monge RN - 05/22/2023 7:59 AM EST [facility] [employer] Notification Date: 05/22/2023 Time: 7:59 AM [facility] Subprogram: No data was found [facility] Episode Start Date: No linked episodes [facility] Enrollment Status: Not Yet Enrolled Action Taken on [employer] Alert and Outcome of ED Visit: Review ONLY: Admitted to Inpatient Rae Monge RN documented in this encounter Plan of Treatment Upcoming Encounters Date Type Department Care Team (Late st Contact Info) Description 05/22/2023 1:30 PM EST Office Visit Ophthalmology, [facility] [address] [place] [address] Toney Davis, [address] [place] [address] 05/26/2023 1:30 PM EST Office Visit Urology Nora Pugh [address] [place] [address] [place] [address] Ryan Cunningham MD [address] [place] [address] [place] [address] 06/02/2023 10:45 AM EST Appointment Radiology, [address] [place] [address] 06/08/2023 1:30 PM EST Telemedicine Hematology/Oncology, [address] [place] [address] Cayden Sandoval MD [address] [facility] [place] [address] 07/06/2023 12:40 PM EST Office Visit Podiatry [facility] [address] [place] [address] Felicita Copeland DPM [address] [place] [address] 07/27/2023 12:40 PM EST Office Visit Gastroenterology, [facility] [address] [place] [address] Trina Plaza DO [address] [place] [address] 09/11/2023 2:00 PM EDT Appointment Radiology, [address] [phone] 09/11/2023 2:30 PM EDT PulmDiagnostic Pulmonary Function Lab [facility] [address] [place] [address] [place], [address] [place] [address] 09/11/2023 3:00 PM EDT Office Visit Pulmonary Medicine [facility] [address] [place] [phone] Saul Moscoso MD [address] [place] [address] 10/25/2023 2:40 PM EDT Office Visit Family Practice [facility] [place] [address] [facility] [place] [address] Mirza Mcgee III, MD [address] [facility] [place] [address] 05/02/2024 1:00 PM EST Office Visit Sleep Disorders, [address] [place] [address] Alesha John MD [address] [facility] [place] [address] Health Maintenance Due Date Last [...] Screening 02/03/2024 02/02/2023 CKD HGB USE SMARTSET 51942 05/22/202405/22, 05/21/2023, 05/21/2023, Additional history exists CKD PHOS USE SMARTSET 27595 05/22/202404/27, 10/26/2022, 03/17/2022, Additional history exists O2 ASSESSMENT COMPLETED IN PAST YEAR FOR COPD 05/22/2024 05/22/2023 Pneumococcal Vaccine: 65+ Years Completed 09/22/2015, 08/21/2001 VITAMIN D LEVEL ONCE IN A LIFETIME-USE SMARTSET# [id number] Completed 10/26/2022, 10/11/2021, 01/01/2019, Additional history exists Influenza Vaccine (FLU shot) Completed , 03/31/2022, 03/23/2021, Additional history exists GARDASIL-HPV IMMUNIZATION SERIES Aged Out No longer eligible based on patient's age to complete this topic MENINGOCOCCAL (MENACTRA/MENVEO) Aged Out No longer eligible based on patient's age to complete this topic documented as of this encounter Medical Devices Implanted Type Area Curb Machine Operator Device Identifier Shelf Expiration Date Model / Serial / Lot Femur Nexgn E Right - [id number] Implanted:Qty: 1 on 05/12/2008 at [place] [facility] Right: Knee [employer] 02/24/2018 [id number] / / [id number] Femur Nexgn E Left - [id number] Implanted:Qty: 1 on 11/19/2008 at [place] [facility] Left: Knee [employer] [id number] / / [id number] Sut Steel 6 M654g - [id number] Implanted:Qty: 6 on 07/11/2011 at [place] [facility] [place] N/A: Chest DO NOT USE 01/09/2016 / / [id number] Akreos Ao Micro Incision Lens [id number] Implanted:Qty: 1 on 11/07/2013 at OR [facility] Right: Eye 06/25/2016 [id number] / [id number] / [id number] documented as of this encounter Advance Directives Latest Code Status on File Code Status Date Activated Date Inactivated Comments No Code 05/21/2023 9:24 AM This orde r reflects the patients wishes [...] patient have Health Care Power of Financial Brokers? No Full Code 11/07/2013 9:36 AM 11/07/2013 1:54 PM This order reflects the patients wishes and were consensually agreed upon. Healthcare Agents on File Name Relationship Healthcare Agent Relationship Communication Soledad Peters Spouse Health Care Agen t (per Health Care Power of Financial Brokers document) [email or web address] Adult Child First Alternate Health Care Agent (per Health Care Power of Financial Brokers document) [email or web address] Care Teams Front Attendant Relationship Specialty Start Date End Date Mirza Mcgee III, MD [address] [place] [address] PCP - General Family Medicine 08/11/18 documented as of this encounter
--- OUTSIDE RECORDS SUMMARY | 2023-07-04 20:42 | External Medical Summary ---
Author Name Unknown Address Unknown Organization : Laboratory Report Ordering Provider Test Date Status KEYANA FERNANDEZ 05/21/2023 16:48:46 Final Observation Date Value Abnormality Reference (Units ) Status Glucose Point of Care 05/21/2023 16:48:46 122 Above high normal 70-120 (mg/dL) Final Performing Location
--- OUTSIDE RECORDS SUMMARY | 2023-07-04 20:42 | External Medical Summary ---
Author Name Unknown Address Unknown Organization K1F:LABORATORY [facility] - [address] [place] [address] Laboratory Report Ordering Provider Test Date Status RAIMUNDO GIBSON 05/21/2023 04:41:37 Final Observation Date Value Abnormality Reference (Units ) Status Albumin 05/21/2023 04:41:37 3.7 Below low normal 3.8-5.0 (g/dL) Final AST (Aspartate aminotransferase) 05/21/2023 04:41:37 51 Above high normal 10-50 (U/L) Final Result may be falsely elevat ed due to hemolysis. Alk Phos 05/21/2023 04:41:37 120 35-130 (U/ L) Final ALT (Alanine aminotransferase) 05/21/2023 04:41:37 24 10-50 (U/L) Final Bilirubin, Total 05/21/2023 04:41:37 0.9 <=1 .2 (mg/dL) Final Bilirubin, Direct 05/21/2023 04:41:37 0.2 0. 0-0.3 (mg/dL) Final Result may be falsely decrea sed due to hemolysis. Protein 05/21/2023 04:41:37 7.2 6.0-8.3 (g /dL) Final Performing Location LABORATORY [facility] - [address] [place] [address]
--- OUTSIDE RECORDS SUMMARY | 2023-07-04 20:42 | External Medical Summary ---
Author Name Unknown Address Unknown Organization : Laboratory Report Ordering Provider Test Date Status KEYANA FERNANDEZ 05/21/2023 12:22:37 Final Observation Date Value Abnormality Reference (Units ) Status Glucose Point of Care 05/21/2023 12:22:37 126 Above high normal 70-120 (mg/dL) Final Performing Location
--- OUTSIDE RECORDS SUMMARY | 2023-07-04 20:42 | External Medical Summary ---
Author Name Unknown Address Unknown Organization : Laboratory Report Ordering Provider Test Date Status CARLEE EDOUARD 05/23/2023 12:23:29 Final Observation Date Value Abnormality Reference (Units ) Status Glucose Point of Care 05/23/2023 12:23:29 101 70-120 (mg/dL) Final Performing Location
--- OUTSIDE RECORDS SUMMARY | 2023-07-04 20:42 | External Medical Summary ---
Author Name Unknown Address Unknown Organization K1F:LABORATORY [facility] - [address] [place] [address] Laboratory Report Ordering Provider Test Date Status RAIMUNDO GIBSON 05/21/2023 04:41:37 Final Observation Date Value Abnormality Reference (Units ) Status Lipase 05/21/2023 04:41:37 28 13-60 (U/L ) Final Performing Location LABORATORY [facility] - [address] [place] [address]
--- OUTSIDE RECORDS SUMMARY | 2023-07-04 20:42 | External Medical Summary ---
Author Name Unknown Address Unknown Organization : Laboratory Report Ordering Provider Test Date Status CARLEE EDOUARD 05/22/2023 07:31:16 Final Observation Date Value Abnormality Reference (Units ) Status Glucose Point of Care 05/22/2023 07:31:16 120 70-120 (mg/dL) Final Performing Location
--- OUTSIDE RECORDS SUMMARY | 2023-07-04 20:42 | External Medical Summary ---
Author Name Unknown Address Unknown Organization [facility] - [address] [place] [address] Laboratory Report Ordering Provider Test Date Status RAIMUNDO GIBSON 05/21/2023 04:41:37 Final Observation Date Value Abnormality Reference (Units ) Status WBC, Total 05/21/2023 04:41:37 6.57 4.00-10.80 (K/uL) Final RBC 05/21/2023 04:41:37 4.95 4.50-5.25 (M/uL) Final Hemoglobin 05/21/2023 04:41:37 15.1 14.0-16.8 (g/dL) Final HCT 05/21/2023 04:41:37 44.5 40.0-48.4 (%) Final MCV 05/21/2023 04:41:37 89.9 82.0-99.5 (fL) Final MCH 05/21/2023 04:41:37 30.5 27.0-34.0 (pg) Final MCHC 05/21/2023 04:41:37 33.9 32.0-36.0 (g/dL) Final RDW 05/21/2023 04:41:37 13.4 11.5-15.5 (%) Final Platelets 05/21/2023 04:41:37 151 140-400 (K/uL) Final MPV 05/21/2023 04:41:37 11.3 6.6-11.1 (fL) Final Nucleated erythrocytes/100 leukocytes [Ratio] in Blood by Automated count 05/21/2023 04:41:37 0 <=0 (/100 WBCs) Final Performing Location LABORATORY [facility] - [address] [place] [address]
--- OUTSIDE RECORDS SUMMARY | 2023-07-04 20:42 | External Medical Summary ---
Author Name Unknown Address Unknown Organization K1F:LABORATORY [facility] - [address] [place] [address] Laboratory Report Ordering Provider Test Date Status RAIMUNDO GIBSON 05/21/2023 04:41:37 Final Observation Date Value Abnormality Reference (Units ) Status Lactic Acid 05/21/2023 04:41:37 1.7 0.4-2.0 (mmol/L) Final Performing Location LABORATORY [facility] - [address] [place] [address]
--- OUTSIDE RECORDS SUMMARY | 2023-07-04 20:42 | External Medical Summary ---
Author Name Unknown Address Unknown Organization K1F:LABORATORY [facility] - [address] [place] [address] Laboratory Report Ordering Provider Test Date Status ANTONIO ANGELO 05/22/2023 05:39:00 Final Observation Date Value Abnormality Reference (Units ) Status WBC, Total 05/22/2023 05:39:00 6.30 4.00-10.80 (K/uL) Final RBC 05/22/2023 05:39:00 4.68 4.50-5.25 (M/uL) Final Hemoglobin 05/22/2023 05:39:00 14.5 14.0-16.8 (g/dL) Final HCT 05/22/2023 05:39:00 42.6 40.0-48.4 (%) Final MCV 05/22/2023 05:39:00 91.0 82.0-99.5 (fL) Final MCH 05/22/2023 05:39:00 31.0 27.0-34.0 (pg) Final MCHC 05/22/2023 05:39:00 34.0 32.0-36.0 (g/dL) Final RDW 05/22/2023 05:39:00 13.5 11.5-15.5 (%) Final Platelets 05/22/2023 05:39:00 195 140-400 (K/uL) Final MPV 05/22/2023 05:39:00 11.5 6.6-11.1 (fL) Final Nucleated erythrocytes/100 leukocytes [Ratio] in Blood by Automated count 05/22/2023 05:39:00 0 <=0 (/100 WBCs) Final Performing Location [facility]ATORY [facility] - [address] [place] [address]
--- OUTSIDE RECORDS SUMMARY | 2023-07-04 20:42 | External Medical Summary ---
Author Name Unknown Address Unknown Organization : Laboratory Report Ordering Provider Test Date Status CARLEE EDOUARD 05/23/2023 07:21:24 Final Observation Date Value Abnormality Reference (Units ) Status Glucose Point of Care 05/23/2023 07:21:24 105 70-120 (mg/dL) Final Performing Location
--- OUTSIDE RECORDS SUMMARY | 2023-07-04 20:42 | External Medical Summary ---
Author Name Unknown Address Unknown Organization K1F:[facility] - [address] [place] [address] Laboratory Report Ordering Provider Test Date Status RAIMUNDO GIBSON 05/21/2023 04:41:37 Final Please submit paper requisit ion from unit printer with sample and fill in the appropriate information:
null Observation Date Value Abnormality Reference (Units ) Status Body temperature 05/21/2023 04:41:37 37.0 (C) Final pH of Venous blood 05/21/2023 04:41:37 7.496 Above high normal 7.320-7.430 (units) Final Carbon dioxide [Partial pressure] in Venous blood 05/21/2023 04:41:37 34.5 Below low normal 40.0-60.0 (mmHg) Final Oxygen [Partial pressure] in Venous blood 05/21/2023 04:41:37 46.6 25.0-50.0 (mmHg) Final Base excess, Capillary 05/21/2023 04:41:37 3.8 Above high normal -2.0-2.0 (mmol/L) Final Hemoglobin [Mass/volume] in Blood by Oximetry 05/21/2023 04:41:37 15.4 14.0-16.8 (g/dL) Final Oxyhemoglobin, Venous (FO2HB) 05/21/2023 04:41:37 80.6 40.0-85.0 (% total Hgb) Final Carboxyhemoglobin 05/21/2023 04:41:37 1.5 <=1.5 (% total Hgb) Final Smokers: 0-9.0 % Methemoglobin 05/21/2023 04:41:37 0.3 <=1.5 (% total Hgb) Final Deoxyhemoglobin/Hemoglobin.t otal in Venous blood 05/21/2023 04:41:37 17.6 (% total Hgb) Bess l Oxygen content in Venous blood 05/21/2023 04:41:37 17.4 7.0-18.0 (%vol) Final Bicarbonate, Venous, POC (i-STAT) 05/21/2023 04:41:37 26.4 23.0-31.0 (mmol/L) nal Performing Location LAB[facility]ATORY [facility] - [address] [facility] [place] [place] [place] [address]
--- OUTSIDE RECORDS SUMMARY | 2023-07-04 20:42 | External Medical Summary ---
Author Name Unknown Address Unknown Organization : Laboratory Report Ordering Provider Test Date Status CARLEE EDOUARD 05/22/2023 16:29:00 Final Observation Date Value Abnormality Reference (Units ) Status Glucose Point of Care 05/22/2023 16:29:00 134 Above high normal 70-120 (mg/dL) Final Performing Location
--- OUTSIDE RECORDS SUMMARY | 2023-07-04 20:42 | External Medical Summary ---
Author Name Unknown Address Unknown Organization K1F:LABORATORY [facility] - [address] [place] [address] Laboratory Report Ordering Provider Test Date Status GIALVAREZ 05/22/2023 05:39:00 Final Observation Date Value Abnormality Reference (Units ) Status Magnesium 05/22/2023 05:39:00 2.4 1.5-2.6 (m g/dL) Final Performing Location LABORATORY [facility] - [address] [place] [address]
[2023-07-04] MEDS ORDERED: dexAMETHasone**PF** 10 MG/ML VIAL IV ONE (21:48)
[2023-07-04] MEDS ORDERED: ACETAMINOPHEN 1,000 MG/100 ML VIAL IV STA (22:45)
--- NOTE | 2023-07-04 23:01 | History & Physical Report ---
Date of Service July 04, 2023 Assessment & Plan (1) Hemoptysis: Plan: 88-year-old male with past med history significant for type 2 diabetes, steroid- induced diabetes, CKD stage III, hyperlipidemia, hypokalemia, chronic respiratory failure with hypoxia, uses 1.5 L oxygen while sleeping, obstructive apnea CPAP nightly, electrolyte abnormalities, chronic diastolic CHF, pulmonary hypertension, hypertension, PVCs, macular degeneration, irritable bowel syndrome , GERD, dysphagia, schatzki's ring, Reveles's esophagus, prostate cancer metastatic to bone, BPH, 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, osteoarthritis, hard of hearing, history of DVT, anxiety, recent hospitalization for intractable nausea vomiting. 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 Patient today felt very weak, usually ambulates with walker but not able to ambulate today. Also has some runny nose and mild cough. Poor appetite. And later he had large amounts of hemoptysis which brought him to the ER. He was given nebs with TXA which seem to help. But states he still getting some hemoptysis. He is on his usual oxygen supplement. Saturating okay. Denies any shortness of breath. Denies any chest pain. Mild headache. No abdominal pain. Has ongoing back pain. Usually constipated. Micturating okay. Has swelling in the legs but says they are not more than his usual. Hemodynamics are okay. Hemoptysis Large amounts Hemoglobin stable at 13.8 Blood consent obtained Received TXA nebs Will hold aspirin Soft tissue neck CT, CT chest, CT abdomen pelvis no acute findings Empirically placed on Invanz Gentle fluids Follow H&H Empirically placed on Protonix drip as patient has Reveles's esophagus Consult pulmonary and GI Close monitoring telemetry floor COVID COVID precautions Received dose of Decadron in the ER Will hold for now for question of GI bleed Seems saturating okay now IV Tylenol as needed Obstructive sleep apnea With this 1.5 L oxygen at nighttime and also CPAP History of nodular sclerosis Hodgkin disease diagnosed in June 2011 S/p 2 months of ABVD and last infusion September 2011. 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 Holding diuretics Will monitor BPH On Proscar and doxazosin Will monitor Nausea and vomiting On olanzapine DVT prophylaxis SCDs Disposition Telemetry floor CODE STATUS Was initially DNR/DNI. But later decided to be full code if there is chance of recovery. History of Present Illness Chief Complaint: Hemoptysis, COVID Primary Care Provider: Mirza Mcgee MD 88-year-old male with past med history significant for type 2 diabetes, steroid- induced diabetes, CKD stage III, hyperlipidemia, hypokalemia, chronic respiratory failure with hypoxia, uses 1.5 L oxygen while sleeping, obstructive apnea CPAP nightly, electrolyte abnormalities, chronic diastolic CHF, pulmonary hypertension, hypertension, PVCs, macular degeneration, irritable bowel syndrome, GERD, dysphagia, schatzki's ring, Reveles's esophagus, prostate cancer metastatic to bone, BPH, 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, osteoarthritis, hard of hearing, history of DVT, anxiety, recent hospitalization for intractable nausea vomiting. 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 Patient today felt very weak, usually ambulates with walker but not able to ambulate today. Also has some runny nose and mild cough. Poor appetite. And later he had large amounts of hemoptysis which brought him to the ER. He was given nebs with TXA which seem to help. But states he still getting some hemoptysis. He is on his usual oxygen supplement. Saturating okay. Denies any shortness of breath. Denies any chest pain. Mild headache. No abdominal pain. Has ongoing back pain. Usually constipated. Micturating okay. Has swelling in the legs but says they are not more than his usual. Hemodynamics are okay. Past medical history. As mentioned above Past surgical history. Total knee arthroplasty, bronchoscopy, colonoscopy with biopsy, EGD, injection of the lumbosacral spine, injection of eye drug, IR biopsy, port placement, punch needle biopsy of prostate, cataracts, resection of chest tumor. Social history. . No smoking. No alcohol use. No drug use. Family history. Mother has Alzheimer's, arthritis, bladder cancer, diabetes, hypertension, stroke. Father had COPD, emphysema, hypertension, silicosis, stroke. Brother had bladder cancer at age of 89. Brother had CABG. Brother had stroke. Allergies Allergy/AdvReac Type Severity Reaction Status Date / Time amoxicillin Allergy Intermediate ITCHY RASH Verified 07/04/23 18:53 Penicillins Allergy Intermediate RASH, ITCHY Verified 07/04/23 18:53 oxycodone AdvReac Intermediate SEVERE Verified 07/04/23 18:53 MENTAL CHANGES/hallucinations Opioid Analgesics AdvReac Intermediate SEVERE Uncoded 07/04/23 18:53 MENTAL CHANGES/hallucinations, can take codeine Home Medications Medication Instructions Recorded Confirmed Type amlodipine 5 mg tablet 5 mg PO DAILY 02/02/21 07/04/23 History aspirin 81 mg tablet,delayed 81 mg PO DAILY 02/02/21 07/04/23 History release (Tucker Low Dose Aspirin) atenolol 50 mg tablet See Rx Instructions .Route .COMPLEX 02/02/21 07/04/23 History atorvastatin 20 mg tablet 20 mg PO DAILY 02/02/21 07/04/23 History benazepril 40 mg tablet 40 mg PO DAILY 02/02/21 07/04/23 History doxazosin 8 mg tablet 8 mg PO HS 02/02/21 07/04/23 History finasteride 5 mg tablet 5 mg PO QAM 02/02/21 07/04/23 History fluticasone furoate 100 1 ea inhalation DAILY 02/02/21 07/04/23 History mcg-vilanterol 25 mcg/dose inhalation powder (Breo Ellipta) furosemide 20 mg tablet 20 mg PO DAILY 02/02/21 07/04/23 History gabapentin 400 mg capsule 400 mg PO QID 02/02/21 07/04/23 History ipratropium 0.5 mg-albuterol 3 mg 3 ml inhalation BID 02/02/21 07/04/23 History (2.5 mg base)/3 mL nebulization soln omeprazole 20 mg capsule,delayed 20 mg PO BID 02/02/21 07/04/23 History release potassium chloride 10 mEq 30 meq PO QAM 02/02/21 07/04/23 History tablet,extended release prednisone 5 mg tablet 5 mg PO DAILY 02/02/21 07/04/23 History spironolactone 50 mg tablet 25 mg PO DAILY 02/02/21 07/04/23 History acetaminophen 500 mg tablet 1,000 mg PO Q8H PRN PAIN, 07/04/23 07/04/23 History (Tylenol Extra Strength) BREAKTHROUGH albuterol sulfate 2.5 mg/3 mL 2.5 mg inhalation DIRECTED PRN 07/04/2303/19 History (0.083 %) solution for nebulization Shortness Of Breath Or Wheezing albuterol sulfate 90 mcg/actuation 2 puff inhalation Q4H PRN Wheezing 07/04/23 07/04/23 History aerosol inhaler benzonatate 100 mg capsule 100 - 200 mg PO TID PRN Cough 07/04/23 07/04/23 History bisacodyl 5 mg tablet,delayed 5 mg PO HS PRN IF NO BM X 2 DAYS. 07/04/23 07/04/23 History release (Dulcolax (bisacodyl)) buspirone 5 mg tablet 5 mg PO BID 07/04/23 07/04/23 History cholecalciferol (vitamin D3) 25 25 mcg PO DAILY 07/04/23 07/04/23 History mcg (1,000 unit) capsule (Vitamin D3) denosumab 60 mg/mL subcutaneous 0 mg subcut .[id number] 07/04/23 07/04/23 History syringe (Prolia) diclofenac sodium 1 % topical gel 4 g topical BID PRN LOWER BACK PAIN 07/04/23 07/04/23 History docusate sodium 100 mg capsule 100 mg PO BID 07/04/23 07/04/23 History lidocaine 4 % topical patch 1 patch topical DAILY PRN Pain 07/04/23 07/04/23 History metoclopramide HCl 5 mg tablet 5 - 10 mg PO AC 07/04/23 07/04/23 History (Reglan) olanzapine 5 mg disintegrating 5 mg translingual QAM 07/04/23 07/04/23 History tablet ondansetron 4 mg disintegrating 4 mg PO Q8H PRN NAUSEA/VOMITING 07/04/23 07/04/23 History tablet polyethylene glycol 3350 17 17 g PO DAILY PRN Constipation 07/04/23 07/04/23 History gram/dose oral powder (Miralax) prochlorperazine maleate 10 mg 10 mg PO Q6H PRN NAUSEA/VOMITING 07/04/23 07/04/23 History tablet (Compazine) sennosides 8.6 mg-docusate sodium 1 tab-cap PO DAILY PRN Constipation 07/04/23 07/04/23 History 50 mg tablet (Senokot-S) tramadol 50 mg tablet 50 mg PO Q6H PRN Pain, Severe 07/04/23 07/04/23 History Past Med/Surg History Medical History (Updated 07/04/23 @ 22:51 by Navya Marques PA-C) Gross hematuria DVT prophylaxis Fever Nausea Hypoxia COVID-19 Lumbar spondylosis Pain of left sacroiliac joint Chronic diastolic heart failure CKD (chronic kidney disease), stage III Polymyalgia rheumatica Hypertension Diabetes mellitus Sleep apnea Social History Smoking Status: Never smoker Second Hand Exposure: No; Do You Dip or Chew Tobacco: No; Hx Alcohol Use: No Hx Substance Use: No Preferred Language: Algerian Communication Ability: Effective Communication Ability Comment: able to verbally understand, macular degeneration inhibits reading &writing Waiter/Waitress Bar Required: No Beliefs That Will Affect Care: None Current Living Situation: Spouse Other Information That Helps Us Care for You: No Feels Safe at Home: Yes Safety Concerns: Feels Safe At This Time Assistive Devices: Glasses, Hearing Aid - Bilateral, Oxygen - Continuous and Walker Review of Systems Review of Systems: All systems reviewed & are unremarkable except as noted in HPI & below Physical Exam Physical Exam: General- Not in acute distress Head- atraumatic Eyes- PERRL ENT- bloody discoloration seen on the tounge Neck- supple, no JVD. Lungs- clear to auscultation no wheezing or crackles. Heart- regular rhythm; no murmur, no gallop. Abdomen- normal bowel sounds, soft, nontender, no distension. Extremities- b/l lower extremity edema present. No erythema seen. Neuro- alert, oriented x 3; PERRL, no facial palsy; no dysarthria; obeys commands, Skin- warm & dry Results & Data Results & Data Vital Signs (Past 12 Hours) Vital Signs Temp Pulse Resp BP Pulse Ox O2 Del Method O2 Flow Rate 07/04/23 22:41 38.9 C H 07/04/23 22:30 156/81 H 07/04/23 22:30 87 26 H 93 Nasal Cannula 2 07/04/23 22:15 Nasal Cannula 2 07/04/23 22:07 86 07/04/23 21:52 85 07/04/23 21:31 156/84 H 07/04/23 21:31 91 H 23 92 Nasal Cannula 2 07/04/23 21:30 90 22 93 07/04/23 21:00 153/81 H 07/04/23 21:00 84 20 93 07/04/23 20:56 37.8 C H 07/04/23 20:30 162/85 H 07/04/23 20:30 83 21 95 Nasal Cannula 2 07/04/23 20:00 147/84 H 07/04/23 20:00 82 23 94 Nasal Cannula 2 07/04/23 19:30 142/75 H 07/04/23 19:30 83 25 H 94 07/04/23 19:00 83 20 99 07/04/23 19:00 182/97 H 07/04/23 18:49 86 18 95 Nasal Cannula 2 07/04/23 18:49 171/83 H 07/04/23 18:30 82 24 95 07/04/23 18:30 156/108 H 07/04/23 18:26 96 Nasal Cannula 2 07/04/23 18:19 81 07/04/23 18:12 81 22 96 07/04/23 18:04 81 20 163/83 H 91 Room Air Diagnostic Findings Laboratory Results WBC 11.00 K/ul (4.8-10.8) H 07/04/23 18:18 RBC 4.63 M/uL (4.70-6.10) L 07/04/23 18:18 Hgb 13.8 g/dl (14.0-18.0) L 07/04/23 18:18 POC Hgb 13.9 g/dl (14.0-18.0) L 07/04/23 18:24 Hct 41.3 % (42.0-52.0) L 07/04/23 18:18 POC Hct 41 % (42-52) L 07/04/23 18:24 MCV 89.2 fL (80.0-100.0) 07/04/23 18:18 MCH 29.8 pg (25.0-34.0) 07/04/23 18:18 MCHC 33.4 g/dL (32.0-36.0) 07/04/23 18:18 RDW Std Deviation 44.7 fL (36.4-46.3) 07/04/23 18:18 RDW Coeff of Scott 13.7 % (11.5-14.5) 07/04/23 18:18 Plt Count 123 K/uL (130-400) L 07/04/23 18:18 MPV 10.9 fL (9.4-12.4) 07/04/23 18:18 Immature Gran % (Auto) 0.7 % 07/04/23 18:18 Neut % (Auto) 84.8 % 07/04/23 18:18 Lymph % (Auto) 5.2 % 07/04/23 18:18 [place] % (Auto) 8.9 % 07/04/23 18:18 Eos % (Auto) 0.2 % 07/04/23 18:18 Baso % (Auto) 0.2 % 07/04/23 18:18 Neut # (Auto) 9.33 K/uL (1.40-6.50) H 07/04/23 18:18 Lymph # (Auto) 0.57 K/uL (1.20-3.40) L 07/04/23 18:18 [place] # (Auto) 0.98 K/uL (0.11-0.59) H 07/04/23 18:18 Eos # (Auto) 0.02 K/uL (0.00-0.50) 07/04/23 18:18 Baso # (Auto) 0.02 K/uL (0.00-0.20) 07/04/23 18:18 Immature Gran # (Auto) 0.08 K/uL (0.01-0.20) 07/04/23 18:18 PT 10.9 Seconds (9.0-12.0) 07/04/23 18:18 INR 1.0 (0.9-1.1) 07/04/23 18:18 APTT 23 Seconds (21-31) 07/04/23 18:18 PTT Ratio 0.8 07/04/23 18:18 POC Sodium 138 mmol/L (135-144) 07/04/23 18:24 Sodium 138 mmol/L (136-145) 07/04/23 18:18 POC Potassium 3.7 mmol/L (3.3-5.0) 07/04/23 18:24 Potassium 3.7 mmol/L (3.5-5.1) 07/04/23 18:18 POC Chloride 99 mmol/L (101-112) L 07/04/23 18:24 Chloride 101 mmol/L (98-107) 07/04/23 18:18 Carbon Dioxide 29 mmol/L (21-32) 07/04/23 18:18 POC Total CO2 28 mmol/L (24-31) 07/04/23 18:24 Anion Gap 8 (3-11) 07/04/23 18:18 POC Anion Gap 15.0 mmol/L (16-25) L 07/04/23 18:24 POC BUN 10 mg/dl (7-18) 07/04/23 18:24 BUN 12 mg/dl (6-23) 07/04/23 18:18 Creatinine 0.75 mg/dl (0.6-1.4) 07/04/23 18:18 POC Creatinine 0.7 mg/dl (0.6-1.3) 07/04/23 18:24 Est Cr Clr Drug Dosing 75.7 ml/min 07/04/23 18:18 Est GFR ( Amer) 95.6 ml/min 07/04/23 18:18 Est GFR (Non-Af Amer) 82.5 ml/min 07/04/23 18:18 BUN/Creatinine Ratio 16.0 (10-20) 07/04/23 18:18 Glucose 112 mg/dl (70-99(Fasting)) H 07/04/23 18:18 POC Glucose (other) 113 mg/dl (70-99) H 07/04/23 18:24 Lactate 1.2 mmol/L (0.4-2.0) 07/04/23 18:18 Calcium 8.1 mg/dl (8.6-10.3) L 07/04/23 18:18 POC Ioniz Calcium Temo 1.06 mmol/l (1.12-1.32) L 07/04/23 18:24 Total Bilirubin 1.1 mg/dl (0.2-1.0) H 07/04/23 18:18 AST 40 U/L (13-39) H 07/04/23 18:18 ALT 35 U/L (7-52) 07/04/23 18:18 Alkaline Phosphatase 208 U/L (34-104) H 07/04/23 18:18 Ammonia 27.0 umol/L (18-72) 07/04/23 18:18 Troponin I High Sens 16.7 pg/ml (0-20) 07/04/23 18:18 B-Natriuretic Peptide 130 pg/ml (0-100) H 07/04/23 18:18 Total Protein 6.3 gm/dl (6.0-8.3) 07/04/23 18:18 Albumin 3.5 gm/dl (3.4-5.0) 07/04/23 18:18 Globulin 2.8 gm/dl (2.5-4.0) 07/04/23 18:18 Albumin/Globulin Ratio 1.3 (0.9-2) 07/04/23 18:18 Adenovirus (PCR) Not Detected (NotDetected) 07/04/23 18:30 B. pertussis DNA (PCR) Not Detected (NotDetected) 07/04/23 18:30 B.parapertussis DNA PCR Not Detected (NotDetected) 07/04/23 18:30 C. pneumoniae DNA (PCR) Not Detected (NotDetected) 07/04/23 18:30 Coronavirus OC43 (PCR) Not Detected (NotDetected) 07/04/23 18:30 Coronavirus HKU1 (PCR) Not Detected (NotDetected) 07/04/23 18:30 Coronavirus 229E (PCR) Not Detected (NotDetected) 07/04/23 18:30 SARS-CoV-2 (PCR) DETECTED (NotDetected) A* 07/04/23 18:30 Coronavirus NL63 (PCR) Not Detected (NotDetected) 07/04/23 18:30 Human Metapneumovir PCR Not Detected (NotDetected) 07/04/23 18:30 Influenza Type A (PCR) Not Detected (NotDetected) 07/04/23 18:30 Influenza Type B (PCR) Not Detected (NotDetected) 07/04/23 18:30 M. pneumoniae (PCR) Not Detected (NotDetected) 07/04/23 18:30 Parainfluenza 1 (PCR) Not Detected (NotDetected) 07/04/23 18:30 Parainfluenza 2 (PCR) Not Detected (NotDetected) 07/04/23 18:30 Parainfluenza 3 (PCR) Not Detected (NotDetected) 07/04/23 18:30 Parainfluenza 4 (PCR) Not Detected (NotDetected) 07/04/23 18:30 RSV (PCR) Not Detected (NotDetected) 07/04/23 18:30 Entero/Rhino (PCR) Not Detected (NotDetected) 07/04/23 18:30 Blood Type B Positive 07/04/23 18:18 Antibody Screen NEGATIVE 07/04/23 18:18 Impressions Abdomen/Pelvis CT 07/04/23 18:14 Exam(s): CT ABDOMEN + PELVIS With Contrast IV Amt: 85 ml opti 320 EXAM: CT Abdomen and Pelvis With Intravenous Contrast CLINICAL HISTORY: Reason for exam: GI bleed. TECHNIQUE: Axial computed tomography images of the abdomen and pelvis with intravenous contrast. CTDI is 16.62 mGy and DLP is 395.35 mGy-cm. Automated exposure control was utilized for the study. A dose lowering technique was utilized adhering to the principles of ALARA. CONTRAST: Patient received 85 ml opti 320 of IV contrast COMPARISON: None FINDINGS: Lung bases: Please see accompanying CT chest for further details. ABDOMEN: Liver: Hepatic metastases. Mild hepatomegaly. Gallbladder and bile ducts: Unremarkable. No calcified stones. No ductal dilation. Pancreas: Unremarkable. No mass. No ductal dilation. Spleen: Mild calcifications along the spleen. Adrenals: Unremarkable. No mass. Kidneys and ureters: Nonspecific mild bilateral perinephric fat stranding. No hydronephrosis or obstructing stone. Stomach and bowel: Fluid and gas-filled small bowel loops may represent enteritis or ileus in the appropriate clinical setting. Evaluation of the stomach is limited by underdistention. Diverticulosis without evidence of diverticulitis. PELVIS: Appendix: Normal appendix. Bladder: Unremarkable. No mass. Reproductive: Mild prostatomegaly. ABDOMEN and PELVIS: Intraperitoneal space: Unremarkable. No free air. No significant fluid collection. Bones/joints: Age indeterminate compression deformity of T11. Curvature of the spine. Degenerative changes of the spine. No dislocation. Soft tissues: Small fat-containing umbilical hernia. Lipoma the right latissimus dorsi muscle. Vasculature: Phleboliths in the pelvis. Atherosclerotic changes of the vasculature. No aortic aneurysm or dissection. Lymph nodes: Unremarkable. No enlarged lymph nodes. IMPRESSION: 1. Hepatic metastases. Mild hepatomegaly. 2. Fluid and gas-filled small bowel loops may represent enteritis or ileus in the appropriate clinical setting. 3. Age indeterminate compression deformity of T11. Electronically signed by: Nestor Villavicencio M.D. 07/04/23 19:[address] 07/04/23 18:14 Exam(s): CT CHEST With Contrast IV Amt: 85 cc opti 320 EXAM: CT Chest With Intravenous Contrast CLINICAL HISTORY: Reason for exam: GI bleed h/o esophageal varices. TECHNIQUE: Axial computed tomography images of the chest with intravenous contrast. CTDI is 23.94 mGy and DLP is 737.1 mGy-cm. Automated exposure control was utilized for the study. A dose lowering technique was utilized adhering to the principles of ALARA. CONTRAST: Patient received 85 cc opti 320 of IV contrast COMPARISON: CT chest on 01/06/2015 FINDINGS: Lungs: Small calcified pleural calcifications or calcified granulomas along the posterolateral right lung base. Similar perihilar and scattered atelectasis or scarring/posttreatment fibrosis. No focal consolidation. No mass. Pleural space: Unremarkable. No pneumothorax. No significant effusion. Heart: Cardiomegaly. Median sternotomy and CABG changes. Mitral annular calcifications. No significant pericardial effusion. No significant coronary artery calcifications. Mediastinum: Small hiatal hernia. Bones/joints: Age indeterminate compression deformity of T11. Degenerative changes of the spine. No dislocation. Soft tissues: Unremarkable. Vasculature: Unremarkable. No thoracic aortic aneurysm. Lymph nodes: Calcified right hilar lymph nodes. Other: Please see accompanying CT abdomen/pelvis for further details. IMPRESSION: Age indeterminate compression deformity of T11. Similar perihilar and scattered atelectasis or scarring/posttreatment fibrosis. No focal consolidation. Electronically signed by: Nestor Villavicencio M.D. 07/04/23 19:38 PM Chest X-Ray 07/04/23 18:19 XR chest 1V portable CLINICAL HISTORY: coughin up blood TECHNIQUE: Single frontal radiograph of the chest was obtained. Comparison: Comparison is made to chest radiograph 05/11/2021 FINDINGS: Median sternotomy wires are unchanged. Cardiomegaly is noted. The aortic arch is calcified. The lungs are clear. No evidence of pleural effusion or pneumothorax. IMPRESSION: No acute chest disease. Cardiomegaly is noted. ACT 112: Negative or not required by law. Electronically signed by: Dayron Luu M.D. 07/04/2023 6:39 PM Soft Tissue Neck CT 07/04/23 18:27 Exam(s): CT NECK With Contrast IV Amt: 85 ml opti 320 EXAM: CT Neck With Intravenous Contrast CLINICAL HISTORY: Reason for exam: Esophageal varices, hemoptysis. TECHNIQUE: Axial computed tomography images of the neck with intravenous contrast. CTDI is 26.68 mGy and DLP is 1435.39 mGy-cm. Automated exposure control was utilized for the study. A dose lowering technique was utilized adhering to the principles of ALARA. CONTRAST: Patient received 85 ml opti 320 of IV contrast COMPARISON: CT neck on 09/10/2017 FINDINGS: Oropharynx: Unremarkable. No significant tonsillar enlargement. No peritonsillar abscess. Hypopharynx: Unremarkable. Larynx: Unremarkable. Normal epiglottis. Trachea: Unremarkable. Retropharyngeal space: Unremarkable. Submandibular/parotid glands: Unremarkable. Glands are normal in size. Thyroid: Small hypodense nodule in the left thyroid lobe could be further evaluated with ultrasound if clinically indicated. Bones/joints: Degenerative changes of the spine. No acute fracture. Soft tissues: Unremarkable. Vasculature: Atherosclerotic changes of the vasculature. Lymph nodes: Unremarkable. No lymphadenopathy. Lung apices: Unremarkable as visualized. IMPRESSION: No acute findings in the neck. Electronically signed by: Nestor Villavicencio M.D. 07/04/23 20:19 PM ECG Additional Comments: ECG. Sinus rhythm with PACs at a rate of 83. Left anterior fascicle block. Nonspecific ST abnormalities. QTc 451 Code Status & VTE Plan VTE Prophylaxis Plan VTE Prophylaxis will be ordered: Yes
[2023-07-04] MEDS ORDERED: DICLOFENAC SOD 1% GEL 100 GM TUBE EXT PRN (23:11)
[2023-07-04] MEDS ORDERED: BENZONATATE 100 MG CAPSULE PO PRN (23:11)
[2023-07-04] MEDS ORDERED: ALBUTEROL 0.083% NEBU SOLN 3 ML VIAL INH PRN (23:11)
[2023-07-04] MEDS ORDERED: ACETAMINOPHEN 1,000 MG/100 ML VIAL IV PRN (23:11)
[2023-07-04] MEDS ORDERED: PANTOPRAZOLE BOLUS/DRIP IV STA (23:11)
[2023-07-04] MEDS ORDERED: ALBUTEROL HFA 8 GM INHALER INH PRN (23:11)
[2023-07-04] MEDS ORDERED: NITROGLYCERIN SL 0.4 MG/TAB TAB SL PRN (23:11)
[2023-07-04] MEDS ORDERED: ONDANSETRON INJ 2 MG/ML 2 ML VIAL IV PRN (23:11)
[2023-07-04] MEDS ORDERED: LIDOCAINE 5% 1 PATCH TD PRN (23:19)
[2023-07-04] MEDS ORDERED: GLUCOSE 10 TAB/TUBE PO PRN (23:29)
[2023-07-04] MEDS ORDERED: CARBOHYDRATES FOR HYPOGLYCEMIA PO PRN (23:29)
[2023-07-04] MEDS ORDERED: GLUCOSE 40% GEL 15 GM TUBE PO PRN (23:29)
[2023-07-04] MEDS ORDERED: DEXTROSE 50% 50 ML SYRINGE IV PRN (23:29)
[2023-07-04] MEDS ORDERED: GLUCAGON FOR INJ 1 MG VIAL SQ PRN (23:29)
[2023-07-04] MEDS ORDERED: PANTOprazole 80 MG in DEXTROSE 5% 100 ML IV ONE (23:30)
[2023-07-04] MEDS ORDERED: ATENOLOL 50 MG TABLET PO SCH (23:30)
[2023-07-05] MEDS ORDERED: ERTAPENEM SODIUM 1,000 MG in SYRINGE 0 ML IV SCH
[2023-07-05] MEDS: SODIUM CHLORIDE 0.9% 1,000 ML IV SCH ×2 (00:04→12:50)
[2023-07-05] MEDS: PANTOprazole 40 MG in DEXTROSE 5% MINI-B 100 ML IV SCH ×4 (00:30→14:25)
[2023-07-05] MEDS: INSULIN ASPART PER UNIT CHARGE SC SCH ×3 (01:08→12:28)
[2023-07-05 04:18] LABS: Hematocrit (blood only) 39.8 % (42.0-52.0); Hemoglobin 13.2 g/dl (14.0-18.0); Mean Corpuscular Hgb Conc 33.2 g/dL (32.0-36.0); Mean Corpuscular Volume 90.5 fL (80.0-100.0); Mean Platelet Volume 11.2 fL (9.4-12.4); Platelet Count 116 K/uL (130-400); RDW Coefficient of Variation 13.7 % (11.5-14.5); RDW Standard Deviation 46.1 fL (36.4-46.3)
[2023-07-05 04:29] LABS: Albumin Level 3.2 gm/dl (3.4-5.0); BUN Creatinine Ratio 14.1 (10-20); Bilirubin Direct 0.3 mg/dl (0-0.2); Bilirubin,Total 0.9 mg/dl (0.2-1.0); C Reactive Protein 14.64 mg/dl (0-0.5); Calcium 7.7 mg/dl (8.6-10.3); Creatinine Clr Calc Pharmacy 72.7 ml/min; Est GFR (African American) 94.1 ml/min; Est GFR (Non-African American) 81.2 ml/min; Magnesium 1.5 mg/dl (1.7-2.4); Potassium 3.7 mmol/L (3.5-5.1); Total Protein 6.1 gm/dl (6.0-8.3)
[2023-07-05 04:41] LABS: Basophils # (auto) 0.01 K/uL (0.00-0.20); Basophils % (auto) 0.1 %; Immature Granulocytes # (auto) 0.09 K/uL (0.01-0.20); Immature Granulocytes % (auto) 0.8 %; Lymphocytes # (auto) 0.36 K/uL (1.20-3.40); Lymphocytes % (auto) 3.3 %; Monocytes # (auto) 0.34 K/uL (0.11-0.59); Monocytes % (auto) 3.1 %; Neutrophils % (auto) 92.7 %
[2023-07-05] MEDS: MAGNESIUM SULFATE / D5W 1 GM/100 ML BAG IV SCH ×2 (06:43→08:19)
[2023-07-05] MEDS ORDERED: ALBUT/IPRATROP 3MG/0.5MG NEB 3 ML VIAL INH SCH (07:00)
[2023-07-05 07:36] LABS: Estimated Average Glucose 134 mg/dl; Hemoglobin A1C 6.3 % (4.5-5.6)
[2023-07-05] MEDS: GABAPENTIN 400 MG CAP PO SCH ×2 (08:42→12:52)
[2023-07-05] MEDS ORDERED: FLUTICASONE/VILANTEROL 100/25MCG 14 PUFFS/INHALER INH SCH (09:00)
[2023-07-05] MEDS ORDERED: ATORVASTATIN 20 MG TAB PO SCH (09:00)
[2023-07-05] MEDS ORDERED: busPIRone 5 MG TAB PO SCH (09:00)
[2023-07-05] MEDS ORDERED: ENALAPRIL MALEATE 10 MG TAB PO SCH (09:00)
[2023-07-05] MEDS ORDERED: ATENOLOL 50 MG TABLET PO SCH (09:00)
[2023-07-05] MEDS ORDERED: amLODIPine BESYLATE 5 MG TAB PO SCH (09:00)
[2023-07-05] MEDS ORDERED: FINASTERIDE 5 MG TAB PO SCH (09:00)
--- NOTE | 2023-07-05 09:38 | Electrocardiogram Report ---
Test Reason : Blood Pressure : / mmHG Vent. Rate : 083 BPM Atrial Rate : 083 BPM P-R Int : 176 ms QRS Dur : 116 ms QT Int : 384 ms P-R-T Axes : 026 -49 031 degrees QTc Int : 451 ms Sinus rhythm with Premature atrial complexes Left anterior fascicular block Left ventricular hypertrophy with QRS widening Abnormal ECG When compared with ECG of 07-MAY-2021 20:00, Premature atrial complexes are now Present Confirmed by Ross Collins ([id number]) on 07/05/2023 9:38:18 AM Referred By: REFERRED SELF Confirmed By:Ross Collins
--- NOTE | 2023-07-05 10:18 | Gastrointestinal Consultation ---
Date of Consultation July 05, 2023 Assessment & Plan (1) Hemoptysis: (2) COVID-19: Patient is 88 years old male with notable medical history including Hodgkin's lymphoma, metastatic prostate cancer, neuroendocrine tumor of the liver. He was admitted with weakness, coughing and hemoptysis yesterday and diagnosed with COVID-19. Upon questioning patient and his family today clarified that he did not have any nausea or vomiting. He also denies abdominal pain with benign abdominal exam today. Blood count stable in the last 2 days, with normal BUN and no signs of melena. - May DC PPI drip, convert to PPI p.o. daily if needed. - Monitor blood count and transfuse as needed. - COVID-19 isolation/protocol. Symptomatic management otherwise. - GI to sign off; pls recall prn. Supervising Physician Co-Signing Physician Notes I saw and evaluated the patient, the patient is known to our service for history of Reveles's esophagus and additional history of chronic constipation. We are consulted with regards to hemoptysis. The patient notes that he been coughing up blood for several days. Typically hemoptysis is better handled by the pulmonary service, perhaps this is related to the patient's underlying infection and I would suggest evaluation by pulmonary. Please call us with any additional questions or concerns GI to sign off History of Present Illness Reason for Consultation: ? GI bleed Requesting Physician: Dr. Raji Saleem Attending Physician: Dr. 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 Hodgkin's lymphoma. Recent diagnosis of neuroendocrine tumor in liver. He presented yesterday with weakness, cough, poor appetite. Family noticed large amount of hemoptysis. No nausea or vomiting, he also denies abdominal pain symptoms. On evaluation he was diagnosed with COVID-19. Currently on 2L O2 per nasal cannula. Labs show stable blood count with hemoglobin of 13 last couple of days. No coagulopathy. Patient not on any anticoagulation therapy but is on aspirin 81 mg daily. BUN is normal. CT chest, abdomen pelvis showed signs of fluid and gas-filled small bowel suspicious for enteritis, polypectomy limited metastatic process in the liver. LFTs with normal T. bili, AST ALT. Alkaline phosphatase slightly elevated at 173. Last EGD done in 2019 with signs of Reveles's esophagus with no dysplasia, Schatzki's ring that was dilated. Allergies Allergy/AdvReac Type Severity Reaction Status Date / Time amoxicillin Allergy Intermediate ITCHY RASH Verified 07/04/23 18:53 Penicillins Allergy Intermediate RASH, ITCHY Verified 07/04/23 18:53 oxycodone AdvReac Intermediate SEVERE Verified 07/04/23 18:53 MENTAL CHANGES/hallucinations Opioid Analgesics AdvReac Intermediate SEVERE Uncoded 07/04/23 18:53 MENTAL CHANGES/hallucinations, can take codeine Home Medications Medication Instructions Recorded Confirmed Type amlodipine 5 mg tablet 5 mg PO DAILY 02/02/21 07/04/23 History aspirin 81 mg tablet,delayed 81 mg PO DAILY 02/02/21 07/04/23 History release (Tucker Low Dose Aspirin) atenolol 50 mg tablet See Rx Instructions .Route .COMPLEX 02/02/21 07/04/23 History atorvastatin 20 mg tablet 20 mg PO DAILY 02/02/21 07/04/23 History benazepril 40 mg tablet 40 mg PO DAILY 02/02/21 07/04/23 History doxazosin 8 mg tablet 8 mg PO HS 02/02/21 07/04/23 History finasteride 5 mg tablet 5 mg PO QAM 02/02/21 07/04/23 History fluticasone furoate 100 1 ea inhalation DAILY 02/02/21 07/04/23 History mcg-vilanterol 25 mcg/dose inhalation powder (Breo Ellipta) furosemide 20 mg tablet 20 mg PO DAILY 02/02/21 07/04/23 History gabapentin 400 mg capsule 400 mg PO QID 02/02/21 07/04/23 History ipratropium 0.5 mg-albuterol 3 mg 3 ml inhalation BID 02/02/21 07/04/23 History (2.5 mg base)/3 mL nebulization soln omeprazole 20 mg capsule,delayed 20 mg PO BID 02/02/21 07/04/23 History release potassium chloride 10 mEq 30 meq PO QAM 02/02/21 07/04/23 History tablet,extended release prednisone 5 mg tablet 5 mg PO DAILY 02/02/21 07/04/23 History spironolactone 50 mg tablet 25 mg PO DAILY 02/02/21 07/04/23 History acetaminophen 500 mg tablet 1,000 mg PO Q8H PRN PAIN, 07/04/23 07/04/23 History (Tylenol Extra Strength) BREAKTHROUGH albuterol sulfate 2.5 mg/3 mL 2.5 mg inhalation DIRECTED PRN 07/04/23 07/04/23 History (0.083 %) solution for nebulization Shortness Of Breath Or Wheezing albuterol sulfate 90 mcg/actuation 2 puff inhalation Q4H PRN Wheezing 07/04/23 07/04/23 History aerosol inhaler benzonatate 100 mg capsule 100 - 200 mg PO TID PRN Cough 07/04/23 07/04/23 History bisacodyl 5 mg tablet,delayed 5 mg PO HS PRN IF NO BM X 2 DAYS. 07/04/23 07/04/23 History release (Dulcolax (bisacodyl)) buspirone 5 mg tablet 5 mg PO BID 07/04/23 07/04/23 History cholecalciferol (vitamin D3) 25 25 mcg PO DAILY 07/04/23 07/04/23 History mcg (1,000 unit) capsule (Vitamin D3) denosumab 60 mg/mL subcutaneous 0 mg subcut .[id number] 07/04/23 07/04/23 History syringe (Prolia) diclofenac sodium 1 % topical gel 4 g topical BID PRN LOWER BACK PAIN 07/04/23 07/04/23 History docusate sodium 100 mg capsule 100 mg PO BID 07/04/23 07/04/23 History lidocaine 4 % topical patch 1 patch topical DAILY PRN Pain 07/04/23 07/04/23 History metoclopramide HCl 5 mg tablet 5 - 10 mg PO AC 07/04/23 07/04/23 History (Reglan) olanzapine 5 mg disintegrating 5 mg translingual QAM 07/04/23 07/04/23 History tablet ondansetron 4 mg disintegrating 4 mg PO Q8H PRN NAUSEA/VOMITING 07/04/23 07/04/23 History tablet polyethylene glycol 3350 17 17 g PO DAILY PRN Constipation 07/04/23 07/04/23 History gram/dose oral powder (Miralax) prochlorperazine maleate 10 mg 10 mg PO Q6H PRN NAUSEA/VOMITING 07/04/23 07/04/23 History tablet (Compazine) sennosides 8.6 mg-docusate sodium 1 tab-cap PO DAILY PRN Constipation 07/04/23 07/04/23 History 50 mg tablet (Senokot-S) tramadol 50 mg tablet 50 mg PO Q6H PRN Pain, Severe 07/04/23 07/04/23 History Patient History Medical History Gross hematuria DVT prophylaxis Fever Nausea Hypoxia COVID-19 Lumbar spondylosis Pain of left sacroiliac joint Chronic diastolic heart failure CKD (chronic kidney disease), stage III Polymyalgia rheumatica Hypertension Diabetes mellitus Sleep apnea Social History Smoking Status: Never smoker Second Hand Exposure: No; Do You Dip or Chew Tobacco: No; Hx Alcohol Use: No Hx Substance Use: No Preferred Language: Chinese Communication Ability: Effective Communication Ability Comment: able to verbally understand, macular degeneration inhibits reading &writing Origination Specialist Required: No Beliefs That Will Affect Care: None Current Living Situation: Spouse Other Information That Helps Us Care for You: No Feels Safe at Home: Yes Safety Concerns: Feels Safe At This Time Assistive Devices: Glasses, Hearing Aid - Bilateral, Oxygen - Continuous and Walker Review of Systems Review of Systems: All systems reviewed & are unremarkable except as noted in HPI & below Physical Exam Constitutional: WD/WN, vitals as above + frail appearing, well groomed, cooperative and comfortable Eyes: PERRL, conjunctivae normal, anicteric sclerae ENMT: external ear and nose normal, oropharynx normal Respiratory: normal respiratory effort, lungs clear to auscultation Cardiovascular: RRR, no murmur, no edema Gastrointestinal (Abdomen): normal bowel sounds, soft, nontender, no hepatosplenomegaly Skin: no rashes, warm and dry no jaundice Psychiatric: A+Ox3, euthymic affect Lymphatic: no lymphedema Results & Data Vital Signs (Past 12 Hours) Vital Signs Temp Pulse Pulse Pulse Resp BP BP 07/05/23 07:54 36.4 C L 62 18 163/80 H 07/05/23 07:36 64 18 07/05/23 06:00 07/05/23 05:47 36.3 C L 65 18 156/87 H 07/05/23 04:00 77 22 164/85 H 07/05/23 00:30 79 24 168/88 H 07/04/23 23:36 83 07/04/23 23:11 82 24 150/81 H 07/04/23 23:11 07/04/23 22:41 38.9 C H 07/04/23 22:30 156/81 H 07/04/23 22:30 87 26 H 07/04/23 22:15 Pulse Ox Pulse Ox O2 Del Method O2 Del Method O2 Flow Rate O2 Flow Rate 07/05/23 07:54 98 Nasal Cannula 4 07/05/23 07:36 98 Nasal Cannula 4 07/05/23 06:00 Nasal Cannula 4 07/05/23 05:47 98 Nasal Cannula 4 07/05/23 04:00 97 Nasal Cannula 4 07/05/23 00:30 96 Nasal Cannula 2 07/04/23 23:36 07/04/23 23:11 94 Nasal Cannula 2 07/04/23 23:11 94 Nasal Cannula 2 07/04/23 22:41 07/04/23 22:30 07/04/23 22:30 93 Nasal Cannula 2 07/04/23 22:15 Nasal Cannula 2
[2023-07-05 12:23] LABS: Hematocrit (blood only) 40.6 % (42.0-52.0); Hemoglobin 13.4 g/dl (14.0-18.0)
--- NOTE | 2023-07-05 14:34 | Pulmonary Consultation ---
Date of Consultation July 05, 2023 Assessment & Plan (1) Hemoptysis: (2) COVID-19: (3) Bronchiectasis: Plan Impression: 88-year-old male admitted with hemoptysis. He has bronchiectasis likely secondary to his mantle radiation for his prior history of lymphoma and is likely the source. There is no other parenchymal abnormalities identified on his CT scan. His hemoptysis is essentially resolved with nebulized TXA. He was incidentally found to be positive for COVID-19. Recommendations: 1. Hemoptysis: Suspect related to bronchiectasis. As his hemoptysis has resolved, there is no role for bronchoscopy currently to isolate source of bleeding. If the patient's hemoptysis were to recur, consideration for bronchoscopy to localize the site of bleeding might be beneficial as the patient has bronchiectatic changes identified in both lungs. If this could be identified, bronchial artery embolization through interventional radiology might be appropriate. At this point in time, would recommend restarting patient's baby aspirin and dismissing him from the hospital. If he has persistent issues he can follow-up with his outpatient industrial x ray operator at [facility]. Would treat him with a 5-day course of oral Ceftin for potential exacerbation of bronchiectasis 2. Bronchiectasis: Secondary to radiation therapy. 3. COVID-19: Incidental finding. No parenchymal disease to suggest pneumonitis. No indication for steroids antivirals or other therapies currently. At this point in time patient appears stable to consider dismissal from the hospital. Pulmonary will sign off. Again he can follow-up with his outpatient industrial x ray operator at [facility]. Feel free to contact us with questions or concerns History of Present Illness Attending Physician: Raji Saleem MD History of Present Illness Asked by hospitalist to assist in evaluation management this patient admitted with hemoptysis and found to be positive for COVID. History is obtained from discussion with the patient and his at bedside. The patient is very hard of hearing and his does assist in answering many questions. Patient is an 88-year-old male who is followed by Dr. Danis Melendez pulmonary. He has a prior history of lymphoma status post mantle radiation therapy. 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 Uses oxygen at 1 to 2 L at night while sleeping. He presented to the emergency room with weakness and some rhinorrhea and cough. According to his , the patient had some bree mopped assist yesterday evening. She quantifies this as a bout few tablespoons full of red blood. He never had chest pain or shortness of breath. This prompted evaluation in the emergency room where he received nebulized TXA. CT scan was performed showing no pulmonary infiltrates. COVID test was positive. He was on a baby aspirin at home and this was discontinued. He was empirically placed on Invanz as well as Protonix and GI and pulmonary consultations were obtained. GI evaluated the patient did not feel that there was a GI source for bleeding. He received Decadron in the emergency room. The patient has done well overnight. The last time he coughed up any blood was over 6 hours ago and it was dark more clotted. He shows me the volume which is probably less than 10 mL. He states he is feeling reasonably well currently. The patient's does not recall him ever having hemoptysis previously. Allergies Allergy/AdvReac Type Severity Reaction Status Date / Time amoxicillin Allergy Intermediate ITCHY RASH Verified 07/04/23 18:53 Penicillins Allergy Intermediate RASH, ITCHY Verified 07/04/23 18:53 oxycodone AdvReac Intermediate SEVERE Verified 07/04/23 18:53 MENTAL CHANGES/hallucinations Opioid Analgesics AdvReac Intermediate SEVERE Uncoded 07/04/23 18:53 MENTAL CHANGES/hallucinations, can take codeine Home Medications Medication Instructions Recorded Confirmed Type amlodipine 5 mg tablet 5 mg PO DAILY 02/02/21 07/04/23 History aspirin 81 mg tablet,delayed 81 mg PO DAILY 02/02/21 07/04/23 History release (Tucker Low Dose Aspirin) atenolol 50 mg tablet See Rx Instructions .Route .COMPLEX 02/02/21 07/04/23 History atorvastatin 20 mg tablet 20 mg PO DAILY 02/02/21 07/04/23 History benazepril 40 mg tablet 40 mg PO DAILY 02/02/21 07/04/23 History doxazosin 8 mg tablet 8 mg PO HS 02/02/21 07/04/23 History finasteride 5 mg tablet 5 mg PO QAM 02/02/21 07/04/23 History fluticasone furoate 100 1 ea inhalation DAILY 02/02/21 07/04/23 History mcg-vilanterol 25 mcg/dose inhalation powder (Breo Ellipta) furosemide 20 mg tablet 20 mg PO DAILY 02/02/21 07/04/23 History gabapentin 400 mg capsule 400 mg PO QID 02/02/21 07/04/23 History ipratropium 0.5 mg-albuterol 3 mg 3 ml inhalation BID 02/02/21 07/04/23 History (2.5 mg base)/3 mL nebulization soln omeprazole 20 mg capsule,delayed 20 mg PO BID 02/02/21 07/04/23 History release potassium chloride 10 mEq 30 meq PO QAM 02/02/21 07/04/23 History tablet,extended release prednisone 5 mg tablet 5 mg PO DAILY 02/02/21 07/04/23 History spironolactone 50 mg tablet 25 mg PO DAILY 02/02/21 07/04/23 History acetaminophen 500 mg tablet 1,000 mg PO Q8H PRN PAIN, 07/04/23 07/04/23 History (Tylenol Extra Strength) BREAKTHROUGH albuterol sulfate 2.5 mg/3 mL 2.5 mg inhalation DIRECTED PRN 07/04/23 07/04/23 History (0.083 %) solution for nebulization Shortness Of Breath Or Wheezing albuterol sulfate 90 mcg/actuation 2 puff inhalation Q4H PRN Wheezing 07/04/23 07/04/23 History aerosol inhaler benzonatate 100 mg capsule 100 - 200 mg PO TID PRN Cough 07/04/23 07/04/23 History bisacodyl 5 mg tablet,delayed 5 mg PO HS PRN IF NO BM X 2 DAYS. 07/04/23 07/04/23 History release (Dulcolax (bisacodyl)) buspirone 5 mg tablet 5 mg PO BID 07/04/23 07/04/23 History cholecalciferol (vitamin D3) 25 25 mcg PO DAILY 07/04/23 07/04/23 History mcg (1,000 unit) capsule (Vitamin D3) denosumab 60 mg/mL subcutaneous 0 mg subcut .[id number] 07/04/23 07/04/23 History syringe (Prolia) diclofenac sodium 1 % topical gel 4 g topical BID PRN LOWER BACK PAIN 07/04/23 07/04/23 History docusate sodium 100 mg capsule 100 mg PO BID 07/04/23 07/04/23 History lidocaine 4 % topical patch 1 patch topical DAILY PRN Pain 07/04/23 07/04/23 History metoclopramide HCl 5 mg tablet 5 - 10 mg PO AC 07/04/23 07/04/23 History (Reglan) olanzapine 5 mg disintegrating 5 mg translingual QAM 07/04/23 07/04/23 History tablet ondansetron 4 mg disintegrating 4 mg PO Q8H PRN NAUSEA/VOMITING 07/04/23 07/04/23 History tablet polyethylene glycol 3350 17 17 g PO DAILY PRN Constipation 07/04/23 07/04/23 History gram/dose oral powder (Miralax) prochlorperazine maleate 10 mg 10 mg PO Q6H PRN NAUSEA/VOMITING 07/04/23 07/04/23 History tablet (Compazine) sennosides 8.6 mg-docusate sodium 1 tab-cap PO DAILY PRN Constipation 07/04/23 07/04/23 History 50 mg tablet (Senokot-S) tramadol 50 mg tablet 50 mg PO Q6H PRN Pain, Severe 07/04/23 07/04/23 History Patient History Medical History Gross hematuria DVT prophylaxis Fever Nausea Hypoxia COVID-19 Lumbar spondylosis Pain of left sacroiliac joint Chronic diastolic heart failure CKD (chronic kidney disease), stage III Polymyalgia rheumatica Hypertension Diabetes mellitus Sleep apnea Social History Smoking Status: Never smoker Second Hand Exposure: No; Do You Dip or Chew Tobacco: No; Hx Alcohol Use: No Hx Substance Use: No Preferred Language: Kiswahili Communication Ability: Effective Communication Ability Comment: able to verbally understand, macular degeneration inhibits reading &writing Health Information Internship Required: No Beliefs That Will Affect Care: None Current Living Situation: Spouse Other Information That Helps Us Care for You: No Feels Safe at Home: Yes Safety Concerns: Feels Safe At This Time Assistive Devices: Glasses, Hearing Aid - Bilateral, Oxygen - Continuous, Walker and Wheelchair Review of Systems Review of Systems: All systems reviewed & are unremarkable except as noted in Subjective Physical Exam Constitutional: WD/WN, vitals as above + frail appearing, well groomed, cooperative and comfortable Eyes: PERRL, conjunctivae normal, anicteric sclerae ENMT: external ear and nose normal, oropharynx normal Respiratory: normal respiratory effort, lungs clear to auscultation Cardiovascular: RRR, no murmur, no edema Gastrointestinal (Abdomen): normal bowel sounds, soft, nontender, no hepatosplenomegaly Skin: no rashes, warm and dry no jaundice Psychiatric: A+Ox3, euthymic affect Lymphatic: no lymphedema Results & Data Results & Data Vital Signs (Past 12 Hours) Vital Signs Temp Pulse Pulse Pulse Resp BP Pulse Ox 07/05/23 12:36 07/05/23 11:38 36.7 C 61 18 132/71 97 07/05/23 07:54 36.4 C L 62 18 163/80 H 98 07/05/23 07:36 64 18 98 07/05/23 07:05 65 07/05/23 06:45 77 07/05/23 06:00 07/05/23 05:47 36.3 C L 65 18 156/87 H 98 07/05/23 04:00 77 22 164/85 H 97 O2 Del Method O2 Flow Rate 07/05/23 12:36 Nasal Cannula 2 07/05/23 11:38 Nasal Cannula 2 07/05/23 07:54 Nasal Cannula 4 07/05/23 07:36 Nasal Cannula 4 07/05/23 07:05 07/05/23 06:45 07/05/23 06:00 Nasal Cannula 4 07/05/23 05:47 Nasal Cannula 4 07/05/23 04:00 Nasal Cannula 4 Critical Care Results & Data Vital Signs (Past 12 Hours) Vital Signs Temp Pulse Pulse Pulse Resp BP Pulse Ox 07/05/23 12:36 07/05/23 11:38 36.7 C 61 18 132/71 97 07/05/23 07:54 36.4 C L 62 18 163/80 H 98 07/05/23 07:36 64 18 98 07/05/23 07:05 65 07/05/23 06:45 77 07/05/23 06:00 07/05/23 05:47 36.3 C L 65 18 156/87 H 98 07/05/23 04:00 77 22 164/85 H 97 O2 Del Method O2 Flow Rate 07/05/23 12:36 Nasal Cannula 2 07/05/23 11:38 Nasal Cannula 2 07/05/23 07:54 Nasal Cannula 4 07/05/23 07:36 Nasal Cannula 4 07/05/23 07:05 07/05/23 06:45 07/05/23 06:00 Nasal Cannula 4 07/05/23 05:47 Nasal Cannula 4 07/05/23 04:00 Nasal Cannula 4 Lab & Micro Results (Past 24 Hours) RBC 4.40 M/uL (4.70-6.10) L 07/05/23 WBC 10.80 K/ul (4.8-10.8) 07/05/23 Hgb 13.4 g/dl (14.0-18.0) L 07/05/23 Hct 40.6 % (42.0-52.0) L 07/05/23 MCV 90.5 fL (80.0-100.0) 07/05/23 MCH 30.0 pg (25.0-34.0) 07/05/23 MCHC 33.2 g/dL (32.0-36.0) 07/05/23 RDW Standard Deviation 46.1 fL (36.4-46.3) 07/05/23 RDW Coefficient of Variation 13.7 % (11.5-14.5) 07/05/23 Plt Count 116 K/uL (130-400) L 07/05/23 MPV 11.2 fL (9.4-12.4) 07/05/23 Neutrophils (%) (Auto) 92.7 % 07/05/23 Lymphocytes (%) (Auto) 3.3 % 07/05/23 Monocytes # (Auto) 0.34 K/uL (0.11-0.59) 07/05/23 Eosinophils # (Auto) 0.00 K/uL (0.00-0.50) 07/05/23 Immature Granulocyte % (Auto) 0.8 % 07/05/23 Neutrophils # (Auto) 10.00 K/uL (1.40-6.50) H 07/05/23 Lymphocytes # (Auto) 0.36 K/uL (1.20-3.40) L 07/05/23 Monocytes # (Auto) 0.34 K/uL (0.11-0.59) 07/05/23 Eosinophils # (Auto) 0.00 K/uL (0.00-0.50) 07/05/23 Basophils # (Auto) 0.01 K/uL (0.00-0.20) 07/05/23 Immature Granulocyte # (Auto) 0.09 K/uL (0.01-0.20) 4 Na 138 mmol/L (136-145) 07/05/23 K 3.7 mmol/L (3.5-5.1) 07/05/23 Cl 102 mmol/L (98-107) 07/05/23 CO2 29 mmol/L (21-32) 07/05/23 Anion Gap 7 (3-11) 07/05/23 BUN 11 mg/dl (6-23) 07/05/23 Creatinine 0.78 mg/dl (0.6-1.4) 07/05/23 Estimated GFR ( Amer) 94.1 ml/min 07/05/23 Estimated GFR (Non-Af Amer) 81.2 ml/min 07/05/23 BUN/Creatinine Ratio 14.1 (10-20) 07/05/23 Glu 144 mg/dl (70-99(Fasting)) H 07/05/23 Ca 7.7 mg/dl (8.6-10.3) L 07/05/23 Total Bilirubin 0.9 mg/dl (0.2-1.0) 07/05/23 Direct Bilirubin 0.3 mg/dl (0-0.2) H 07/05/23 AST 36 U/L (13-39) 07/05/23 ALT 32 U/L (7-52) 07/05/23 Alkaline Phosphatase 173 U/L (34-104) H 07/05/23 TP 6.1 gm/dl (6.0-8.3) 07/05/23 Albumin 3.2 gm/dl (3.4-5.0) L 07/05/23 Globulin 2.8 gm/dl (2.5-4.0) 07/04/23 Albumin/Globulin Ratio 1.3 (0.9-2) 07/04/23 Mg 1.5 mg/dl (1.7-2.4) L 07/05/23 03:31 Calcium Level 7.7 mg/dl (8.6-10.3) L 07/05/23 03:31 Prothromb Time International Ratio 1.0 (0.9-1.1) 07/04/23 18:1 8 Diagnostic Findings (Past 24 Hours) Abdomen/Pelvis CT 07/04/23 18:14 Exam(s): CT ABDOMEN + PELVIS With Contrast IV Amt: 85 ml opti 320 EXAM: CT Abdomen and Pelvis With Intravenous Contrast CLINICAL HISTORY: Reason for exam: GI bleed. TECHNIQUE: Axial computed tomography images of the abdomen and pelvis with intravenous contrast. CTDI is 16.62 mGy and DLP is 395.35 mGy-cm. Automated exposure control was utilized for the study. A dose lowering technique was utilized adhering to the principles of ALARA. CONTRAST: Patient received 85 ml opti 320 of IV contrast COMPARISON: None FINDINGS: Lung bases: Please see accompanying CT chest for further details. ABDOMEN: Liver: Hepatic metastases. Mild hepatomegaly. Gallbladder and bile ducts: Unremarkable. No calcified stones. No ductal dilation. Pancreas: Unremarkable. No mass. No ductal dilation. Spleen: Mild calcifications along the spleen. Adrenals: Unremarkable. No mass. Kidneys and ureters: Nonspecific mild bilateral perinephric fat stranding. No hydronephrosis or obstructing stone. Stomach and bowel: Fluid and gas-filled small bowel loops may represent enteritis or ileus in the appropriate clinical setting. Evaluation of the stomach is limited by underdistention. Diverticulosis without evidence of diverticulitis. PELVIS: Appendix: Normal appendix. Bladder: Unremarkable. No mass. Reproductive: Mild prostatomegaly. ABDOMEN and PELVIS: Intraperitoneal space: Unremarkable. No free air. No significant fluid collection. Bones/joints: Age indeterminate compression deformity of T11. Curvature of the spine. Degenerative changes of the spine. No dislocation. Soft tissues: Small fat-containing umbilical hernia. Lipoma the right latissimus dorsi muscle. Vasculature: Phleboliths in the pelvis. Atherosclerotic changes of the vasculature. No aortic aneurysm or dissection. Lymph nodes: Unremarkable. No enlarged lymph nodes. IMPRESSION: 1. Hepatic metastases. Mild hepatomegaly. 2. Fluid and gas-filled small bowel loops may represent enteritis or ileus in the appropriate clinical setting. 3. Age indeterminate compression deformity of T11. Electronically signed by: Nestor Villavicencio M.D. 07/04/23 19:[address] 07/04/23 18:14 Exam(s): CT CHEST With Contrast IV Amt: 85 cc opti 320 EXAM: CT Chest With Intravenous Contrast CLINICAL HISTORY: Reason for exam: GI bleed h/o esophageal varices. TECHNIQUE: Axial computed tomography images of the chest with intravenous contrast. CTDI is 23.94 mGy and DLP is 737.1 mGy-cm. Automated exposure control was utilized for the study. A dose lowering technique was utilized adhering to the principles of ALARA. CONTRAST: Patient received 85 cc opti 320 of IV contrast COMPARISON: CT chest on 01/06/2015 FINDINGS: Lungs: Small calcified pleural calcifications or calcified granulomas along the posterolateral right lung base. Similar perihilar and scattered atelectasis or scarring/posttreatment fibrosis. No focal consolidation. No mass. Pleural space: Unremarkable. No pneumothorax. No significant effusion. Heart: Cardiomegaly. Median sternotomy and CABG changes. Mitral annular calcifications. No significant pericardial effusion. No significant coronary artery calcifications. Mediastinum: Small hiatal hernia. Bones/joints: Age indeterminate compression deformity of T11. Degenerative changes of the spine. No dislocation. Soft tissues: Unremarkable. Vasculature: Unremarkable. No thoracic aortic aneurysm. Lymph nodes: Calcified right hilar lymph nodes. Other: Please see accompanying CT abdomen/pelvis for further details. IMPRESSION: Age indeterminate compression deformity of T11. Similar perihilar and scattered atelectasis or scarring/posttreatment fibrosis. No focal consolidation. Electronically signed by: Nestor Villavicencio M.D. 07/04/23 19:38 PM Chest X-Ray 07/04/23 18:19 XR chest 1V portable CLINICAL HISTORY: coughin up blood TECHNIQUE: Single frontal radiograph of the chest was obtained. Comparison: Comparison is made to chest radiograph 05/11/2021 FINDINGS: Median sternotomy wires are unchanged. Cardiomegaly is noted. The aortic arch is calcified. The lungs are clear. No evidence of pleural effusion or pneumothorax. IMPRESSION: No acute chest disease. Cardiomegaly is noted. ACT 112: Negative or not required by law. Electronically signed by: Dayron Luu M.D. 07/04/2023 6:[address] 07/04/23 18:27 Exam(s): CT NECK With Contrast IV Amt: 85 ml opti 320 EXAM: CT Neck With Intravenous Contrast CLINICAL HISTORY: Reason for exam: Esophageal varices, hemoptysis. TECHNIQUE: Axial computed tomography images of the neck with intravenous contrast. CTDI is 26.68 mGy and DLP is 1435.39 mGy-cm. Automated exposure control was utilized for the study. A dose lowering technique was utilized adhering to the principles of ALARA. CONTRAST: Patient received 85 ml opti 320 of IV contrast COMPARISON: CT neck on 09/10/2017 FINDINGS: Oropharynx: Unremarkable. No significant tonsillar enlargement. No peritonsillar abscess. Hypopharynx: Unremarkable. Larynx: Unremarkable. Normal epiglottis. Trachea: Unremarkable. Retropharyngeal space: Unremarkable. Submandibular/parotid glands: Unremarkable. Glands are normal in size. Thyroid: Small hypodense nodule in the left thyroid lobe could be further evaluated with ultrasound if clinically indicated. Bones/joints: Degenerative changes of the spine. No acute fracture. Soft tissues: Unremarkable. Vasculature: Atherosclerotic changes of the vasculature. Lymph nodes: Unremarkable. No lymphadenopathy. Lung apices: Unremarkable as visualized. IMPRESSION: No acute findings in the neck. Electronically signed by: Nestor Villavicencio M.D. 07/04/23 20:19 PM I & O Totals 24 Hours 07/04/23 07/05/23 07/06/23 06:59 06:59 06:59 Intake Total 805 / 805 1447.5 / 1447.5 Output Total 275 / 275 Balance 530 / 530 1447.5 / 1447.5 Cumulative 07/04/23 17:44 thru 07/05/23 14:25 Intake Total 2252.5 Output Total 275 Balance 1977.5 RT Ventilator Mngmt (Last Documented) Ventilator Ordered Settings Respiratory Rate 18 07/05/23 11:38 Ventilator - PT Measurements Respiratory Rate 18 PG Care Time/CCT Total # of Minutes Spent Total Time Spent with Patient: Total time spent is greater than 50% in coordination of care (as documented) at patient's floor/unit and/or counseling patient: Coding Level of Care Code 58310 INT INP/OBS CARE 3/75MIN Diagnoses Hemoptysis R04.2 COVID-19 U07.1 Bronchiectasis J47.9
--- NOTE | 2023-07-05 14:40 | Hospitalist Progress Note ---
Date of Service July 05, 2023 Assessment & Plan (1) Hemoptysis: Plan: 88-year-old male w/ PMH of type 2 diabetes, steroid-induced diabetes, CKD stage III, hyperlipidemia, hypokalemia, chronic respiratory failure with hypoxia, uses 1.5 L oxygen while sleeping, obstructive apnea CPAP nightly, electrolyte abnormalities, chronic diastolic CHF, pulmonary hypertension, hypertension, PVCs, macular degeneration, irritable bowel syndrome, GERD, dysphagia, schatzki's ring, Reveles's esophagus, prostate cancer metastatic to bone, BPH, 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, osteoarthritis, hard of hearing, history of DVT, anxiety, recent hospitalization for intractable nausea vomiting. 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 Patient felt very weak at presentation, usually ambulates with walker but not able to ambulate today. Also has some runny nose and mild cough. Poor appetite. And later he had large amounts of hemoptysis which brought him to the ER. He was given nebs with TXA which seem to help. Denies nausea and vomiting. He is being managed for the following: Hemoptysis COVID-19 virus infection Patient came in with cough and hemoptysis of 1 day duration. Incidental finding of COVID-19 virus infection. Hemoptysis likely related to his underlying bronchiectasis, possible exacerbation. Received TXA nebs at the ED which seemed to help. Admitting CXR, CT chest, soft tissue neck CT with no acute findings. Pulmonology on board, appreciate recommendation. Patient started on 5-day course of oral Ceftin for potential exacerbation of bronchiectasis. Will resume his baby aspirin, follow clinically and H&H. Follow-up with pulmonology on discharge. Infection due to COVID-19 virus: Received a dose of Decadron in the ED. Admitting imagings reviewed. Patient near his baseline oxygen requirement/cough improving/no indication for steroids or remdesivir. Obstructive sleep apnea: With this 1.5 L oxygen at nighttime and also CPAP History of nodular sclerosis Hodgkin disease diagnosed in June 2011: S/p 2 months of ABVD and last infusion September 2011. 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 Hypertension: Continue benazepril, amlodipine and atenolol, lasix (and KCL) and Aldactone. BPH: On Proscar and doxazosin. Will monitor Nausea and vomiting: On olanzapine, continue. DVT prophylaxis: SCDs Disposition: Telemetry floor. PT/OT. CM to assist w/ dc plan. CODE STATUS: Was initially DNR/DNI. But later decided to be full code if there is chance of recovery. Admission and Anticipated Discharge Date Admission Date: July 04, 2023 Subjective Patient was seen and examined at bedside. Patient was sitting up in bed, on 2 L oxygen via nasal cannula, hard of hearing, not in any acute distress. Patient's and son and [id number] at bedside. Patient denies any nausea and vomiting, reports cough and hemoptysis since yesterday, gradually getting better today. Was worse yesterday evening. Denies chest pain, headache or dizziness. Physical Exam Physical Exam: GENERAL: Alert and oriented x3. NAD, on 2.5L O2 via NC. HEENT: No pallor, no icterus. Pupils equal, round and reactive to light. Oral mucosa moist. NECK: No JVD, no neck masses. HEART: S1 and S2 heard. Regular rate and rhythm. No murmur, no gallop. RESPIRATORY SYSTEM: Normal AP diameter. No accessory muscle use. No wheezing, no crackles. ABDOMEN: Soft, bowel sounds present, nontender, no distention. CENTRAL NERVOUS SYSTEM: No facial droop. Speech is clear. Obeys simple commands. Moves extremities. EXTREMITIES: No edema, no erythema seen. Results & Data Results & Data Vital Signs (Past 12 Hours) Vital Signs Temp Pulse Pulse Pulse Resp BP Pulse Ox 07/05/23 12:36 07/05/23 11:38 36.7 C 61 18 132/71 97 07/05/23 07:54 36.4 C L 62 18 163/80 H 98 07/05/23 07:36 64 18 98 07/05/23 07:05 65 07/05/23 06:45 77 07/05/23 06:00 07/05/23 05:47 36.3 C L 65 18 156/87 H 98 07/05/23 04:00 77 22 164/85 H 97 O2 Del Method O2 Flow Rate 07/05/23 12:36 Nasal Cannula 2 07/05/23 11:38 Nasal Cannula 2 07/05/23 07:54 Nasal Cannula 4 07/05/23 07:36 Nasal Cannula 4 07/05/23 07:05 07/05/23 06:45 07/05/23 06:00 Nasal Cannula 4 07/05/23 05:47 Nasal Cannula 4 07/05/23 04:00 Nasal Cannula 4
[2023-07-05] MEDS ORDERED: traMADol HCL 50 MG TABLET PO PRN (14:54)
[2023-07-05] MEDS ORDERED: bisacodyL 5 MG TABEC PO PRN (14:54)
--- NOTE | 2023-07-05 15:22 | Discharge Summary ---
Date of Service July 05, 2023 Admission HPI Per Admitting Provider 88-year-old male with past med history significant for type 2 diabetes, steroid- induced diabetes, CKD stage III, hyperlipidemia, hypokalemia, chronic respiratory failure with hypoxia, uses 1.5 L oxygen while sleeping, obstructive apnea CPAP nightly, electrolyte abnormalities, chronic diastolic CHF, pulmonary hypertension, hypertension, PVCs, macular degeneration, irritable bowel syndrome, GERD, dysphagia, schatzki's ring, Reveles's esophagus, prostate cancer metastatic to bone, BPH, 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, osteoarthritis, hard of hearing, history of DVT, anxiety, recent hospitalization for intractable nausea vomiting. 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 Patient today felt very weak, usually ambulates with walker but not able to ambulate today. Also has some runny nose and mild cough. Poor appetite. And later he had large amounts of hemoptysis which brought him to the ER. He was given nebs with TXA which seem to help. But states he still getting some hemoptysis. He is on his usual oxygen supplement. Saturating okay. Denies any shortness of breath. Denies any chest pain. Mild headache. No abdominal pain. Has ongoing back pain. Usually constipated. Micturating okay. Has swelling in the legs but says they are not more than his usual. Hemodynamics are okay. Past medical history. As mentioned above Past surgical history. Total knee arthroplasty, bronchoscopy, colonoscopy with biopsy, EGD, injection of the lumbosacral spine, injection of eye drug, IR biopsy, port placement, punch needle biopsy of prostate, cataracts, resection of chest tumor. Social history. . No smoking. No alcohol use. No drug use. Family history. Mother has Alzheimer's, arthritis, bladder cancer, diabetes, hypertension, stroke. Father had COPD, emphysema, hypertension, silicosis, stroke. Brother had bladder cancer at age of 89. Brother had CABG. Brother had stroke. Admission Exam Per Admitting Provider General- Not in acute distress Head- atraumatic Eyes- PERRL ENT- bloody discoloration seen on the tounge Neck- supple, no JVD. Lungs- clear to auscultation no wheezing or crackles. Heart- regular rhythm; no murmur, no gallop. Abdomen- normal bowel sounds, soft, nontender, no distension. Extremities- b/l lower extremity edema present. No erythema seen. Neuro- alert, oriented x 3; PERRL, no facial palsy; no dysarthria; obeys commands, Skin- warm & dry Principal Diagnosis Hemodialysis Infection due to COVID-19 virus Potential bronchiectasis exacerbation Discharge Exam GENERAL: Alert and oriented x3. NAD, on 2.5L O2 via NC. HEENT: No pallor, no icterus. Pupils equal, round and reactive to light. Oral mucosa moist. NECK: No JVD, no neck masses. HEART: S1 and S2 heard. Regular rate and rhythm. No murmur, no gallop. RESPIRATORY SYSTEM: Normal AP diameter. No accessory muscle use. No wheezing, no crackles. ABDOMEN: Soft, bowel sounds present, nontender, no distention. CENTRAL NERVOUS SYSTEM: No facial droop. Speech is clear. Obeys simple commands. Moves extremities. EXTREMITIES: No edema, no erythema seen. Discharge Data Allergies Allergy/AdvReac Type Severity Reaction Status Date / Time amoxicillin Allergy Intermediate ITCHY RASH Verified 07/04/23 18:53 Penicillins Allergy Intermediate RASH, ITCHY Verified 07/04/23 18:53 oxycodone AdvReac Intermediate SEVERE Verified 07/04/23 18:53 MENTAL CHANGES/hallucinations Opioid Analgesics AdvReac Intermediate SEVERE Uncoded 07/04/23 18:53 MENTAL CHANGES/hallucinations, can take codeine Consultations 07/04/23 20:37 ED Decision to Admit Stat 07/05/23 08:00 Consult Gastroenterology Routine Consult Pulmonology Routine Ordered Studies 07/04/23 18:14 CT abd pelvis IV con only Stat CT chest diagnostic w con Stat 07/04/23 18:27 CT soft tissue neck w con Stat Hospital Course (1) Hemoptysis: 88-year-old male w/ PMH of type 2 diabetes, steroid-induced diabetes, CKD stage III, hyperlipidemia, hypokalemia, chronic respiratory failure with hypoxia, uses 1.5 L oxygen while sleeping, obstructive apnea CPAP nightly, electrolyte abnormalities, chronic diastolic CHF, pulmonary hypertension, hypertension, PVCs, macular degeneration, irritable bowel syndrome, GERD, dysphagia, scha tzki's ring, Reveles's esophagus, prostate cancer metastatic to bone, BPH, 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, osteoarthritis, hard of hearing, history of DVT, anxiety, recent hospitalization for intractable nausea vomiting. 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 Patient felt very weak at presentation, usually ambulates with walker but not able to ambulate today. Also has some runny nose and mild cough. Poor appetite. And later he had large amounts of hemoptysis which brought him to the ER. He was given nebs with TXA which seem to help. Denies nausea and vomiting. He is being managed for the following: Hemoptysis COVID-19 virus infection Patient came in with cough and hemoptysis of 1 day duration. Incidental finding of COVID-19 virus infection. Hemoptysis likely related to his underlying bronchiectasis, possible exacerbation. Received TXA nebs at the ED which seemed to help. Admitting CXR, CT chest, soft tissue neck CT with no acute findings. Pulmonology on board, appreciate recommendation. Patient started on 5-day course of oral Ceftin for potential exacerbation of bronchiectasis. Will resume his baby aspirin. CBC w/ pcp office in next few days. Follow-up with pulmonology on discharge. Infection due to COVID-19 virus: Received a dose of Decadron in the ED. Admitting imagings reviewed. Patient near his baseline oxygen requirement/cough improving/no indication for steroids or remdesivir. Obstructive sleep apnea: With this 1.5 L oxygen at nighttime and also CPAP History of nodular sclerosis Hodgkin disease diagnosed in June 2011: S/p 2 months of ABVD and last infusion September 2011. 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 Hypertension: Continue benazepril, amlodipine and atenolol, lasix (and KCL) and Aldactone. BPH: On Proscar and doxazosin. Will monitor Nausea and vomiting: On olanzapine, continue. DVT prophylaxis: SCDs Disposition: Ideally would want him overnight to monitor his hemoptysis and infection due to COVID-19 virus. Spoke with patient's family over the phone, they want to take him home regardless. They were made aware to bring him back to emergency immediately if with worsening cough & hemoptysis/worsening oxygen requirement. Patient's reports that they have home health coming for physical therapy this week. CODE STATUS: Was initially DNR/DNI. But later decided to be full code if there is chance of recovery. Patient is being discharged to home with home health with following instruction at the point of discharge: Follow-up with your primary care physician within a week time and likely you will need labs CBC/CMP/magnesium/phosphorus. Follow-up with your pulmonology in a week time upon discharge. Follow-up with your oncology as an outpatient as prior. If you have worsening cough/hemoptysis/increasing oxygen requirement, report to emergency immediately. Take your medications as prescribed. Please make sure that you are able to get your medications today by calling your pharmacy before you leave the hospital so that your treatment continuity is not broken. Home Health Attestation I certify that this patient is under my care and that I, or a physicians assistant portfolio manager working with me, had a face to-face encounter that meets the formerly [id number] encounter requirements with this patient. The encounter with the patient was in whole, or in part, for the following medical condition, which is the primary reason for home health care (list medical condition): I certify that, based on my findings, the following services are medically necessary home health services: My clinical findings support the need for the above services because: Further, I certify that my clinical findings support that this patient is homebound (i.e. absences from home require considerable and taxing effort and are for medical reasons or sikh services or infrequently or of short duration when for other reasons) because: Certification for Home Health Services: Based on the above findings, I certify that this patient is confined to the home and needs intermittent usp care, physical therapy and/or speech therapy or continues to need occupational therapy. The patient is under my care, and I have initiated the establishment of the plan of care. This patient will be followed by a physician who will periodically review the plan of care. Total Time Total Time Spent Total Time Spent (In Minutes): 45 Discharge Plan Discharge Items Patient Disposition: Home - Home Health Services Reason For Visit: HEMOPTYSIS Discharge Diagnosis: Hemodialysis Infection due to COVID-19 virus Potential bronchiectasis exacerbation Condition on Discharge: Good Activity: Resume your previous activity Non-emergency contact: Primary Care Provider Call non-emergency contact if: you have any medication questions, your symptoms worsen and your temperature is above 101 Follow-up/Referrals: Mirza Mcgee MD [Physician] - Diet: Heart Healthy Addtl Attending Provider Instructions: Follow-up with your primary care physician within a week time and likely you will need labs CBC/CMP/magnesium/phosphorus. Follow-up with your pulmonology in a week time upon discharge. Follow-up with your oncology as an outpatient as prior. If you have worsening cough/hemoptysis/increasing oxygen requirement, report to emergency immediately. Take your medications as prescribed. Please make sure that you are able to get your medications today by calling your pharmacy before you leave the hospital so that your treatment continuity is not broken. Pending Studies at Discharge: No Stand-Alone Forms: [facility], Smoking Cessation Medications and DC Order Prescriptions: New cefuroxime axetil 500 mg Tablet 500 mg PO BID 5 Days Qty: 10 0RF Continued doxazosin 8 mg tablet 8 mg PO HS finasteride 5 mg tablet 5 mg PO QAM spironolactone 50 mg tablet 25 mg PO DAILY furosemide 20 mg tablet 20 mg PO DAILY Rx Instructions: MAY TAKE ADDITIONAL DOSE IF NEEDED FOR FLUID RETENTION/WT GAIN potassium chloride 10 mEq tablet extended release 30 meq PO QAM omeprazole 20 mg capsule,delayed release(DR/EC) 20 mg PO BID ipratropium-albuterol 0.5 mg-3 mg(2.5 mg base)/3 mL solution for nebulization 3 ml INHALATION BID Rx Instructions: MAY USE UP TO QID PER [facility] prednisone 5 mg tablet 5 mg PO DAILY benazepril 40 mg tablet 40 mg PO DAILY atenolol 50 mg tablet See Rx Instructions .ROUTE .COMPLEX Rx Instructions: TAKES 50 MG QAM, THEN 25 MG QPM. atorvastatin 20 mg tablet 20 mg PO DAILY gabapentin 400 mg capsule 400 mg PO QID fluticasone furoate-vilanterol [Breo Ellipta] 100-25 mcg/dose blister with device 1 ea INHALATION DAILY amlodipine 5 mg tablet 5 mg PO DAILY aspirin [Tucker Low Dose Aspirin] 81 mg Tablet,Delayed Release (Dr/Ec) 81 mg PO DAILY buspirone [BuSpar] 5 mg Tablet 5 mg PO BID lidocaine 4 % Adhesive Patch,Medicated 1 patch TOPICAL DAILY PRN (Reason: Pain) albuterol sulfate [Proventil] 2.5 mg /3 mL (0.083 %) Solution For Nebulization 2.5 mg INHALATION DIRECTED PRN (Reason: Shortness Of Breath Or Wheezing) sennosides-docusate sodium [Senokot-S] 8.6-50 mg Tablet 1 tab-cap PO DAILY PRN (Reason: Constipation) prochlorperazine maleate [Compazine] 10 mg Tablet 10 mg PO Q6H PRN (Reason: NAUSEA/VOMITING) Rx Instructions: PER [facility]--USUALLY TAKES BID ROUTINELY tramadol 50 mg Tablet 50 mg PO Q6H PRN (Reason: Pain, Severe) Rx Instructions: PER [facility]--TAKES TWICE DAILY ROUTINELY acetaminophen [Tylenol Extra Strength] 500 mg Tablet 1,000 mg PO Q8H PRN (Reason: PAIN, BREAKTHROUGH) metoclopramide HCl [Reglan] 5 mg Tablet 5 - 10 mg PO AC benzonatate [Tessalon Perles] 100 mg Capsule 100 - 200 mg PO TID PRN (Reason: Cough) docusate sodium 100 mg Capsule 100 mg PO BID bisacodyl [Dulcolax (bisacodyl)] 5 mg Tablet,Delayed Release (Dr/Ec) 5 mg PO HS PRN (Reason: IF NO BM X 2 DAYS.) polyethylene glycol 3350 [Miralax] 17 gram/dose Powder 17 g PO DAILY PRN (Reason: Constipation) albuterol sulfate 90 mcg/actuation Hfa Aerosol Inhaler 2 puff INHALATION Q4H PRN (Reason: Wheezing) ondansetron [Zofran ODT] 4 mg Tablet,Disintegrating 4 mg PO Q8H PRN (Reason: NAUSEA/VOMITING) olanzapine 5 mg tablet,disintegrating 5 mg translingual QAM cholecalciferol (vitamin D3) [Vitamin D3] 25 mcg (1,000 unit) Capsule 25 mcg PO DAILY diclofenac sodium [Voltaren] 1 % Gel 4 g TOPICAL BID PRN (Reason: LOWER BACK PAIN) Prolia 60 mg/mL Syringe 0 mg SUBCUT .[id number] Discharge Orders: Discharge Order (Routine); Ordered 07/05/23 Ordered By: Raji Valentin/Other Patient Handouts: A1C Admission Data Admit Date/Time: 07/04/23 22:39 Attending Provider: Raji Saleem Admit Provider: Lamont Nugent Primary Care Provider: Angel Quinteros Other Providers: Lamont Nugent; Ximena Meyers; Ebenezer Martinez; Alma Flores; Shanice Gastelum; Noni Souza; Francisco Morales; Ulices Chaney; Trina Plaza; Arnoldo Oseguera; Tirso Valdez; Agustín Schultz; Cindy Zavala; Bernie Frazier; Delmi Brunson; Maryam Wood; Rich Maynard; John Schuster; Chan Ang; Rita Garcia; Yen Melvin Jr; Cayden Flores
[2023-07-05] MEDS ORDERED: METOCLOPRAMIDE HCL 5 MG TABLET PO SCH (16:30)
[2023-07-05] MEDS ORDERED: DOXAZosin MESYLATE 4 MG TAB PO SCH (21:00)
[2023-07-05] MEDS ORDERED: cefUROXime axetil 500 MG TAB PO SCH (21:00)
[2023-07-05] MEDS ORDERED: DOCUSATE SODIUM 100 MG CAP PO SCH (21:00)
[2023-07-05] MEDS ORDERED: PANTOprazole 40 MG TAB PO SCH (21:00)
[2023-07-06] MEDS ORDERED: CHOLECALCIFEROL 1,000 UNITS 25 MCG TAB PO SCH (09:00)
[2023-07-06] MEDS ORDERED: OLANZapine ZYDIS 5 MG ORALLY DIS. TAB PO SCH (09:00)
[2023-07-06] MEDS ORDERED: SPIRONOLACTONE 25 MG TAB PO SCH (09:00)
[2023-07-06] MEDS ORDERED: FUROSEMIDE 20 MG TAB PO SCH (09:00)
[2023-07-06] MEDS ORDERED: predniSONE 5 MG TAB PO SCH (09:00)
[2023-07-06] MEDS ORDERED: POTASSIUM CHLORIDE 10 MEQ TABCR PO SCH (09:00)
== END 2023-07-05 16:15 | disposition home health service (06) | DRG 190 ==
LOC: ED 18:00 → EDINP 22:39 → 2S 23:12